=== PATIENT | female | born 1960 | race Caucasian/White ===

== ENCOUNTER 2016-08-04 18:00 | Emergency (ER) | payer MEDICARE, MEDICAID ==
--- NOTE | 2016-08-04 18:17 | ER Document Report ---
ED Medical Screen (RME) - General Stated Complaint: WEAKNESS Notes: 55 yo female with hx/o HTN, CHF, right nephrectomy, SC, stent 2013 brought to ED by EMS for generalized weakness and rectal bleeding today. dark red bleeding with BM x 1 today. feels dizzy. pressure on chest all day, center of chest feels heavy. + radiation into back. TRAVEL OUTSIDE OF THE [place] IN LAST 30 DAYS: No - Related Data Allergies/Adverse Reactions: Penicillins Allergy (Unknown, Verified 11/20/15 21:13) Past Medical History - Past Medical History Cardiac Medical History: Reports: Hx Congestive Heart Failure, Hx Coronary Artery Disease, Hx Hypertension Denies: Hx DVT Endocrine Medical History: Reports: Hx Diabetes Mellitus Type 1, Hx Diabetes Mellitus Type 2 Renal/ Medical History: Reports: Hx End Stage Renal Disease - stage 3 Malignancy Medical History: Reports: Hx Renal (Kidney) Cancer Psychiatric Medical History: Reports: Hx Depression Past Surgical History: Reports: Hx Cardiac Surgery - stents, Hx Cholecystectomy , Hx Coronary Stent - 2013, Hx Kidney (Renal Surgery) - right nephrectomy, Hx Orthopedic Surgery - Left great toe amputation - Immunizations Hx Diphtheria, Pertussis, Tetanus Vaccination: Yes Physical Exam - Vital signs Vitals: Temp Pulse Resp BP Pulse Ox 97.9 F 83 18 132/73 H 95 08/04/16 18:57 08/04/16 18:57 08/04/16 18:57 08/04/16 18:57 08/04/16 18:57 Course - Vital Signs Vital signs: Temp Pulse Resp BP Pulse Ox 97.9 F 83 18 132/73 H 95 08/04/16 18:57 08/04/16 18:57 08/04/16 18:57 08/04/16 18:57 08/04/16 18:57
[2016-08-04 20:19] LABS: APPEARANCE,URINE SLIGHTLY-CLOUDY; BILIRUBIN,URINE NEGATIVE (NEGATIVE); GLUCOSE, URINE 150 mg/dL (NEGATIVE); KETONES,URINE NEGATIVE (NEGATIVE); LEUKOCYTE ESTERASE,URINE NEGATIVE (NEGATIVE); NITRITE,URINE NEGATIVE (NEGATIVE); PROTEIN,URINE NEGATIVE (NEGATIVE); URINE SPECIFIC GRAVITY 1.014; UROBILINOGEN,URINE NEGATIVE mg/dL (<2.0)
[2016-08-04 20:22] LABS: ABSOLUTE BASOPHILS # (AUTO) 0.1 10^3/uL (0.0-0.2); ABSOLUTE EOSINOPHILS # (AUTO) 0.3 10^3/uL (0.0-0.6); ABSOLUTE LYMPHOCYTES (AUTO) 2.7 10^3/uL (0.5-4.7); ABSOLUTE MONOCYTES (AUTO) 0.5 10^3/uL (0.1-1.4); ABSOLUTE NEUT (AUTO) 8.2 10^3/uL (1.7-8.2); BASOPHILS % (AUTO) 0.6 % (0-2); EOSINOPHILS % (AUTO) 2.8 % (0-6); HEMATOCRIT 37.7 % (36.0-47.0); HGB HCT DIFFERENCE -1.7; LYMPHOCYTES % (AUTO) 22.7 % (13-45); MEAN CORPUSCULAR HEMOGLOBIN 26.4 pg (27.0-33.4); MEAN CORPUSCULAR HGB CONC 31.9 g/dL (32.0-36.0); MEAN CORPUSCULAR VOLUME 83 fl (80-97); MONOCYTES % (AUTO) 4.7 % (3-13); RED BLOOD COUNT 4.56 10^6/uL (3.72-5.28); RED CELL DISTRIBUTION WIDTH 14.7 % (11.5-14.0); SEGMENTED NEUTROPHILS % (AUTO) 69.2 % (42-78); WHITE BLOOD COUNT 11.8 10^3/uL (4.0-10.5)
[2016-08-04 20:37] LABS: ALANINE AMINOTRANSFERASE 27 U/L (9-52); ALBUMIN 3.7 g/dL (3.5-5.0); ALKALINE PHOSPHATASE 108 U/L (38-126); ANION GAP 14 (5-19); ASPARTATE AMINO TRANSFERASE 19 U/L (14-36); BILIRUBIN,TOTAL 0.4 mg/dL (0.2-1.3); BLOOD UREA NITROGEN 46 mg/dL (7-20); CALCIUM 8.8 mg/dL (8.4-10.2); CARBON DIOXIDE 25 mmol/L (22-30); CHLORIDE 98 mmol/L (98-107); CREATINE KINASE 82 U/L (30-135); CREATININE RESULT 2.01 mg/dL (0.52-1.25); GLUCOSE 331 mg/dL (75-110); LIPASE 264.1 U/L (23-300); POTASSIUM 4.8 mmol/L (3.6-5.0); SODIUM 136.7 mmol/L (137-145); TOTAL PROTEIN 7.7 g/dL (6.3-8.2)
[2016-08-04 20:50] LABS: TROPONIN I < 0.012 ng/mL
[2016-08-04 20:53] LABS: CREATINE KINASE MB 1.29 ng/mL (<4.55)
--- NOTE | 2016-08-04 21:44 | EKG REPORT ---
SEVERITY:- ABNORMAL ECG - SINUS RHYTHM LEFT VENTRICULAR HYPERTROPHY : Confirmed by: Randi Nagel MD 04-Aug-2016 21:44:03
[2016-08-04] MEDS ORDERED: NORMAL SALINE 1000 ML 1,000 ML IV ONE (23:58)
[2016-08-05] MEDS ORDERED: NORMAL SALINE 1000 ML 500 ML IV ONE (00:01)
[2016-08-05] MEDS ORDERED: MORPHINE SULFATE 10 MG/ML INJ IV ONE (00:24)
[2016-08-05 01:36] LABS: PROTHROMBIN TIME 13.3 SEC (11.4-15.4)
[2016-08-05 01:37] LABS: PARTIAL THROMBOPLASTIN TIME 23.4 SEC (23.5-35.8)
--- NOTE | 2016-08-05 03:31 | ER Document Report ---
ED GI Bleed / Rectal Pain - General Chief Complaint: Rectal Bleeding Stated Complaint: WEAKNESS Mode of Arrival: Ambulatory Information source: Patient Notes: Patient is a 55-year-old female who presents to the ER today for one episode of rectal bleeding today with a bowel movement. Patient states that she has a history of internal hemorrhoids and she was having a bowel movement today had some dark blood in the toilet afterwards. She does take iron, but states that the blood was not black, just dark in color. She denies blood clots. She admits to some left lower quadrant pain, but states that it has been going on for "a while." She denies constipation, diarrhea, nausea/vomiting, hx diverticulitis. She states her last colonoscopy was 1 year ago and normal with just some polyps removed. TRAVEL OUTSIDE OF THE [place] IN LAST 30 DAYS: No - Related Data Allergies/Adverse Reactions: Penicillins Allergy (Unknown, Verified 11/20/15 21:13) Past Medical History - General Information source: Patient - Social History Smoking Status: Former Smoker Chew tobacco use (# tins/day): No Frequency of alcohol use: None Drug Abuse: None Family History: Reviewed & Not Pertinent Patient has suicidal ideation: No Patient has homicidal ideation: No - Past Medical History Cardiac Medical History: Reports: Hx Congestive Heart Failure, Hx Coronary Artery Disease, Hx Hypertension Denies: Hx DVT Endocrine Medical History: Reports: Hx Diabetes Mellitus Type 1, Hx Diabetes Mellitus Type 2 Renal/ Medical History: Reports: Hx End Stage Renal Disease - stage 3. Denies : Hx Peritoneal Dialysis Malignancy Medical History: Reports: Hx Renal (Kidney) Cancer Psychiatric Medical History: Reports: Hx Depression Past Surgical History: Reports: Hx Cardiac Surgery - stents, Hx Cholecystectomy , Hx Coronary Stent - 2013, Hx Kidney (Renal Surgery) - right nephrectomy, Hx Orthopedic Surgery - Left great toe amputation - Immunizations Hx Diphtheria, Pertussis, Tetanus Vaccination: Yes Hx Pneumococcal Vaccination: 07/11/13 Review of Systems - Review of Systems Constitutional: No symptoms reported EENT: No symptoms reported Cardiovascular: No symptoms reported Respiratory: No symptoms reported Gastrointestinal: See HPI Genitourinary: No symptoms reported Female Genitourinary: No symptoms reported Musculoskeletal: No symptoms reported Skin: No symptoms reported Hematologic/Lymphatic: No symptoms reported Neurological/Psychological: No symptoms reported Physical Exam - Vital signs Vitals: Temp Pulse Resp BP Pulse Ox 97.9 F 83 18 132/73 H 95 08/04/16 18:57 08/04/16 18:57 08/04/16 18:57 08/04/16 18:57 08/04/16 18:57 - Notes Notes: PHYSICAL EXAMINATION: GENERAL: appears to be uncomfortable, but in no acute distress. HEAD: Atraumatic, normocephalic. EYES: Pupils equal round and reactive to light, extraocular movements intact, sclera anicteric, conjunctiva are normal. NECK: Normal range of motion, supple without lymphadenopathy LUNGS: CTAB and equal. No wheezes rales or rhonchi. HEART: Regular rate and rhythm without murmurs ABDOMEN: Soft, llq tenderness. No guarding, no rebound BACK: no vertebral tenderness, normal ROM GI/: no CVA tenderness rectal: internal hemorrhoids noted, no obvious blood, normal tone and tenderness EXTREMITIES: Normal range of motion, no pitting edema. No cyanosis. NEUROLOGICAL: Cranial nerves grossly intact. Normal sensory/motor exams. PSYCH: Normal mood, normal affect. SKIN: Warm, Dry, normal turgor, no rashes or lesions noted Course - Re-evaluation Re-evalutation: 08/05/16 03:36 Pt's hemoglobin is normal, her hemoccult is positive. She does take iron. There are internal hemorrhoids noted on her rectal exam. Pt's creatinine is slightly worse than in february, but she's been told she says that her kidney function is worsening by her senior assistant manager. CT abd with oral contrast negative for any acute pathology. Pt stable for discharge as she has had two bowel movements here without any blood in it after arriving. She states she wants to go home and follow up with her pcp. 08/05/16 03:38 - Vital Signs Vital signs: Temp Pulse Resp BP Pulse Ox 97.9 F 83 18 132/73 H 95 08/04/16 18:57 08/04/16 18:57 08/04/16 18:57 08/04/16 18:57 08/04/16 18:57 - Laboratory Result Diagrams: 08/04/16 19:45 08/04/16 19:45 Laboratory results interpreted by me: 08/04/16 08/04/16 08/04/16 19:45 19:45 19:50 WBC 11.8 H MCH 26.4 L MCHC 31.9 L RDW 14.7 H APTT Sodium 136.7 L BUN 46 H Creatinine 2.01 H Est GFR ( Amer) 31 L Est GFR (Non-Af Amer) 26 L Glucose 331 H Urine Glucose (UA) 150 H 08/05/16 01:17 WBC MCH MCHC RDW APTT 23.4 L Sodium BUN Creatinine Est GFR ( Amer) Est GFR (Non-Af Amer) Glucose Urine Glucose (UA) Discharge - Discharge Clinical Impression: Rectal bleeding Condition: Stable Disposition: HOME, SELF-CARE Additional Instructions: Return immediately for any new or worsening symptoms. Follow up with GI/ primary care provider, call tomorrow to make followup appointment. Referrals: JERRI MORALES MD [ACTIVE STAFF] - Follow up as needed
[2016-08-05] MEDS ORDERED: OXYCODONE-ACETAMINOPHEN 5-325 MG TABLET PO ONE (04:04)
[2016-08-05 04:49] VITALS: BP 133/78
== END 2016-08-05 04:50 | disposition home or self-care (01) ==
LOC: ER 18:00
DX: K62.5 Hemorrhage of anus and rectum (principal); R19.5 Other fecal abnormalities; R10.32 Left lower quadrant pain; K64.8 Other hemorrhoids; I25.10 Atherosclerotic heart disease of native coronary artery without angina pectoris; I10 Essential (primary) hypertension; E11.9 Type 2 diabetes mellitus without complications; Z85.528 Personal history of other malignant neoplasm of kidney; Z90.5 Acquired absence of kidney; Z90.49 Acquired absence of other specified parts of digestive tract; Z98.61 Coronary angioplasty status; Z87.891 Personal history of nicotine dependence; Z88.0 Allergy status to penicillin; Z86.010 Personal history of colon polyps; Z79.899 Other long term (current) drug therapy
CPT/HCPCS: 93005; 99284; 96361; 96374; 86900; 86901; 36415; 82553; 86850; 82550; 83690; 85025; 85610; 85730; 82272; 80053; 81001; 84484; 71020; 74176; 93010; J2270; A9270; J7030

== ENCOUNTER → 2016-10-04 | Outpatient (CLI) | payer MEDICARE, MEDICAID | LOC: WI 13:36 | PROVIDERS: ATTEND Internal Medicine Geriatric Medicine | DX: Z12.31 Encounter for screening mammogram for malignant neoplasm of breast (principal) | CPT/HCPCS: 77067; G0202 ==

== ENCOUNTER → 2016-10-18 | Outpatient (CLI) | payer MEDICARE, MEDICAID | LOC: RAD 12:20 | PROVIDERS: ATTEND Internal Medicine Cardiovascular Disease | DX: R55 Syncope and collapse (principal) | CPT/HCPCS: 70450 ==

== ENCOUNTER → 2017-01-20 | Outpatient (CLI) | payer MEDICARE, MEDICAID ==
--- NOTE | 2017-01-20 12:23 | RADIOLOGY REPORT (SQ) ---
EXAM DESCRIPTION: MRI HEAD WITHOUT COMPLETED DATE/TIME: 01/20/2017 12:06 pm REASON FOR STUDY: SYNCOPE AND COLLAPSE R55 SYNCOPE AND COLLAPSE G45.9 TRANSIENT CEREBRAL ISCHEMIC ATTACK, UNSPECIFIED COMPARISON: CT brain 10/18/2016 MRI brain 09/09/2008 TECHNIQUE: Multiplanar imaging includes non-contrasted T1, T2, FLAIR, and diffusion with ADC map seq uences. Images stored on PACS. LIMITATIONS: None. FINDINGS: ANATOMY: No anomalies. Normal vascular flow voids. Pituitary fossa normal. CSF SPACES: Normal in size and contour. No hemorrhage. CEREBRUM: Sulci and gyri normal in size and contour. Normal white matter signal on FLAIR imaging. No evidence of hemorrhage, mass, or extraaxial fluid collection. POSTERIOR FOSSA: No signal alteration. No hemorrhage. No edema, masses or mass effect. Internal carol tory canals, cerebello-pontine angles, mastoids normal. DIFFUSION IMAGING: Negative for acute or sub-acute infarction. ORBITS: No masses. Globes normal. PARANASAL SINUSES: No fluid levels. Mucosa normal. OTHER: No other significant finding. IMPRESSION: NORMAL MRI OF THE BRAIN WITHOUT INTRAVENOUS GADOLINIUM CONTRAST. TECHNICAL DOCUMENTATION: JOB ID: [id number]- All Rights Reserved
== END ==
LOC: RAD 10:48
PROVIDERS: ATTEND Physician Assistant Medical
DX: G45.9 Transient cerebral ischemic attack, unspecified (principal); R55 Syncope and collapse; R42 Dizziness and giddiness
CPT/HCPCS: 70551

== ENCOUNTER 2017-01-27 16:37 | Inpatient (IN) | payer MEDICARE, MEDICAID ==
[2017-01-27 17:39] LABS: APPEARANCE,URINE CLEAR; BILIRUBIN,URINE NEGATIVE (NEGATIVE); GLUCOSE, URINE 50 mg/dL (NEGATIVE); KETONES,URINE NEGATIVE (NEGATIVE); LEUKOCYTE ESTERASE,URINE NEGATIVE (NEGATIVE); NITRITE,URINE NEGATIVE (NEGATIVE); PROTEIN,URINE NEGATIVE (NEGATIVE); URINE SPECIFIC GRAVITY 1.008; UROBILINOGEN,URINE NEGATIVE mg/dL (<2.0)
[2017-01-27] MEDS ORDERED: GLUCAGON,HUMAN RECOMB 1 MG INJ IM PRN (17:44)
[2017-01-27] MEDS ORDERED: DEXTROSE 40% GEL 15 GM TUBE X 2 PO PRN (17:44)
[2017-01-27] MEDS ORDERED: DEXTROSE 40% GEL 15 GM TUBE PO PRN (17:44)
[2017-01-27] MEDS ORDERED: DEXTROSE 50%-WATER SYRINGE 25 GM/50 ML DOSE IV PRN (17:44)
[2017-01-27] MEDS ORDERED: DEXTROSE 50%-WATER SYRINGE 12.5 GM/25 ML DOSE IV PRN (17:44)
[2017-01-27 17:49] LABS: ABSOLUTE BASOPHILS # (AUTO) 0.1 10^3/uL (0.0-0.2); ABSOLUTE EOSINOPHILS # (AUTO) 0.5 10^3/uL (0.0-0.6); ABSOLUTE LYMPHOCYTES (AUTO) 3.1 10^3/uL (0.5-4.7); ABSOLUTE MONOCYTES (AUTO) 0.5 10^3/uL (0.1-1.4); ABSOLUTE NEUT (AUTO) 5.2 10^3/uL (1.7-8.2); BASOPHILS % (AUTO) 0.8 % (0-2); HEMATOCRIT 33.4 % (36.0-47.0); HEMOGLOBIN 11.1 g/dL (12.0-15.5); HGB HCT DIFFERENCE -0.1; LYMPHOCYTES % (AUTO) 33.3 % (13-45); MEAN CORPUSCULAR HEMOGLOBIN 27.3 pg (27.0-33.4); MEAN CORPUSCULAR HGB CONC 33.2 g/dL (32.0-36.0); MEAN CORPUSCULAR VOLUME 82 fl (80-97); MONOCYTES % (AUTO) 4.9 % (3-13); RED BLOOD COUNT 4.06 10^6/uL (3.72-5.28); RED CELL DISTRIBUTION WIDTH 14.9 % (11.5-14.0); WHITE BLOOD COUNT 9.4 10^3/uL (4.0-10.5)
[2017-01-27] MEDS ORDERED: NORMAL SALINE 1000 ML 1,000 ML IV PRN (18:00)
[2017-01-27 18:09] LABS: ALANINE AMINOTRANSFERASE 32 U/L (9-52); ALBUMIN 3.9 g/dL (3.5-5.0); ALKALINE PHOSPHATASE 104 U/L (38-126); ANION GAP 13 (5-19); ASPARTATE AMINO TRANSFERASE 30 U/L (14-36); BILIRUBIN,DIRECT 0.3 mg/dL (0.0-0.4); BILIRUBIN,TOTAL 0.4 mg/dL (0.2-1.3); BLOOD UREA NITROGEN 37 mg/dL (7-20); CALCIUM 8.8 mg/dL (8.4-10.2); CARBON DIOXIDE 25 mmol/L (22-30); CHLORIDE 101 mmol/L (98-107); CREATININE RESULT 2.01 mg/dL (0.52-1.25); GLUCOSE 138 mg/dL (75-110); POTASSIUM 4.5 mmol/L (3.6-5.0); SODIUM 139.2 mmol/L (137-145); TOTAL PROTEIN 7.9 g/dL (6.3-8.2)
[2017-01-27] MEDS ORDERED: ALPRAZOLAM 0.5 MG TABLET PO PRN (20:13)
[2017-01-27] MEDS ORDERED: (PENDING PHARMACY ID) (Nitroglycerin [Nitrostat] 0.3 MG) SL PRN (20:13)
[2017-01-27] MEDS ORDERED: ZALEPLON 5 MG PO PRN (20:13)
--- NOTE | 2017-01-27 21:08 | PDOC H&P ---
History of Present Illness Admission Date/PCP: 01/27/17 16:37 AMBAR LOPEZ MD Patient complains of: Elevated serum creatinine History of Present Illness: JESU ORR is a 56 year old female who presented to the office earlier today for follow up management of diabetes mellitus type 2, hypertension, obstructive sleep apnea and chronic pain syndrome related to degenerative dis disease but raised issue with need for referral to another community organizer due to worsening renal function as per result of her recent chemistry test completed on 01/19/2017 at outpatient lab under directive of Dr Suárez, dining service worker, that led to cancellation of her schedule cardiac catheterization. Patient has history of chronic kidney disease and was consulting with Dr Hebert, community organizer, but requested for a new community organizer due to financial limitation. Due to her other associated reported symptoms including dizziness, headache, increased thirst, shortness of breath, intermittent tachycardia, and slight disorientation she was advised hospitalization for further evaluation and management. Past Medical History Cardiac Medical History: Reports: Congestive Heart Failure, Coronary Artery Disease, Hypertension Denies: DVT Endocrine Medical History: Reports: Diabetes Mellitus Type 2 Renal/ Medical History: Reports: Chronic Kidney Disease Malignancy Medical History: Reports: Renal (Kidney) Cancer - s/p right nephrectomy September, Psychiatric Medical History: Reports: Depression Hematology: Reports: Anemia Past Surgical History Past Surgical History: Reports: Cholecystectomy, Coronary Stent - 2013, Orthopedic Surgery - Left great toe amputation Social History Smoking Status: Never Smoker Frequency of Alcohol Use: None Hx Recreational Drug Use: No Drugs: None Hx Prescription Drug Abuse: No Family History Family History: Reviewed & Not Pertinent Parental Family History Reviewed: Yes Children Family History Reviewed: Yes Sibling(s) Family History Reviewed.: Yes Medication/Allergy Home Medications: Alprazolam [Xanax 0.5 mg Tablet] 0.5 mg PO Q12HP PRN 01/27/17 Aspirin [Aspirin 325 mg Tablet] 325 mg PO DAILY 01/27/17 Atorvastatin Calcium [Lipitor 80 mg Tablet] 80 mg PO DAILY 01/27/17 Clopidogrel Bisulfate [Clopidogrel] 75 mg PO DAILY 01/27/17 Cyclobenzaprine HCl [Flexeril 10 mg Tablet] 10 mg PO HSP PRN 01/27/17 Fluoxetine HCl [Prozac 20 mg Capsule] 20 mg PO DAILY 01/27/17 Furosemide [Lasix] 40 mg PO BID 01/27/17 Gabapentin [Neurontin] 600 mg PO Q8 01/27/17 Hydralazine HCl [Apresoline 25 mg Tablet] 25 mg PO DAILY 01/27/17 Insulin Aspart [Novolog Flexpen] 10 units SQ MEALS 01/27/17 Insulin Degludec [Tresiba Flextouch U-100] 70 units SQ QHS 01/27/17 Isosorbide Mononitrate [Isosorbide Mononitrate ER] 30 mg PO DAILY 01/27/17 Linagliptin [Tradjenta] 5 mg PO DAILY 01/27/17 Lisinopril [Prinivil] 20 mg PO DAILY 01/27/17 Metoclopramide HCl [Reglan] 5 mg PO Q12 01/27/17 Metoprolol Succinate [Toprol XL 100 mg Tablet] 100 mg PO DAILY 01/27/17 Nitroglycerin [Nitro-Dur 5 mg (0.2 mg/Hr) Transdermal Patch] 1 patch TD DAILY 01/27/17 Nitroglycerin [Nitrostat] 0.3 mg SL Q15MP PRN MDD 3 TABS 01/27/17 Ranitidine HCl [Zantac 150 mg Tablet] 150 mg PO Q12 01/27/17 Ranolazine [Ranexa 500 mg Tab.sr] 500 mg PO Q12 01/27/17 Topiramate [Topamax] 50 mg PO DAILY 01/27/17 Topiramate [Topamax] 100 mg PO QHS 01/27/17 Zaleplon [Sonata] 5 mg PO HSP PRN 01/27/17 Allergies/Adverse Reactions: Penicillins Allergy (Unknown, Verified 11/20/15 21:13) Review of Systems Constitutional: PRESENT: fatigue, headache(s) Eyes: ABSENT: visual disturbances Ears: ABSENT: hearing changes Nose, Mouth, and Throat: PRESENT: headache(s), sore throat - with CPAP machine usage Cardiovascular: PRESENT: chest pain - intermittent, edema - improving, palpitations - intermittent Respiratory: PRESENT: dyspnea, other - wheezing Gastrointestinal: ABSENT: abdominal pain, constipation, diarrhea, hematemesis, hematochezia, nausea, vomiting Genitourinary: ABSENT: dysuria, hematuria Musculoskeletal: PRESENT: back pain, deformity Integumentary: PRESENT: diaphoresis - mostly at night time Neurological: PRESENT: dizziness, numbness - in feet related to her diabetes mellitus Psychiatric: PRESENT: other - snoring Endocrine: PRESENT: flushing Hematologic/Lymphatic: ABSENT: easy bleeding, easy bruising, lymphadenopathy Physical Exam Vital Signs: Temp Pulse Resp BP Pulse Ox 97.4 F 71 17 117/61 100 01/27/17 19:13 01/27/17 19:13 01/27/17 19:13 01/27/17 19:13 01/27/17 19:13 Intake & Output 01/26/17 01/27/17 01/28/17 06:59 06:59 06:59 Output Total 900 Balance -900 Weight 137.438 kg General appearance: PRESENT: no acute distress, morbidly obese Head exam: PRESENT: atraumatic, normocephalic Eye exam: PRESENT: conjunctiva pink, EOMI, PERRLA. ABSENT: scleral icterus Ear exam: PRESENT: normal external ear exam Mouth exam: PRESENT: moist, tongue midline Throat exam: ABSENT: post pharyngeal erythema, tonsillar erythema, tonsillar exudate, tonsillogmegaly, other Neck exam: ABSENT: carotid bruit, full ROM, JVD, lymphadenopathy, meningismus, tenderness, thyromegaly, tracheal deviation, tracheostomy, other Respiratory exam: PRESENT: clear to auscultation tarsha Cardiovascular exam: PRESENT: RRR. ABSENT: diastolic murmur, rubs, systolic murmur Pulses: PRESENT: normal dorsalis pedis pul, +2 pedal pulses bilateral Vascular exam: PRESENT: normal capillary refill GI/Abdominal exam: PRESENT: hernia - incisional hernia, right flank region, normal bowel sounds, soft. ABSENT: distended, guarding, mass, organolmegaly, rebound, tenderness Rectal exam: PRESENT: deferred Extremities exam: PRESENT: full ROM Musculoskeletal exam: PRESENT: ambulatory - with straight cane assistance, deformity - related to arthritis and left hallux amputation Neurological exam: PRESENT: alert, awake, oriented to person, oriented to place , oriented to time, oriented to situation, CN II-XII grossly intact. ABSENT: motor sensory deficit Psychiatric exam: PRESENT: appropriate affect, normal mood. ABSENT: homicidal ideation, suicidal ideation Skin exam: PRESENT: dry, intact, warm. ABSENT: cyanosis, rash Results Laboratory Results: 01/27/17 17:41 01/27/17 17:41 01/27/17 01/27/1717 17:25 17:41 17:41 WBC 9.4 RBC 4.06 Hgb 11.1 L Hct 33.4 L MCV 82 MCH 27.3 MCHC 33.2 RDW 14.9 H Plt Count 275 Seg Neutrophils % 56.0 Lymphocytes % 33.3 Monocytes % 4.9 Eosinophils % 5.0 Basophils % 0.8 Absolute Neutrophils 5.2 Absolute Lymphocytes 3.1 Absolute Monocytes 0.5 Absolute Eosinophils 0.5 Absolute Basophils 0.1 Sodium 139.2 Potassium 4.5 Chloride 101 Carbon Dioxide 25 Anion Gap 13 BUN 37 H Creatinine 2.01 H Est GFR ( Amer) 31 L Est GFR (Non-Af Amer) 26 L Glucose 138 H Calcium 8.8 Total Bilirubin 0.4 AST 30 ALT 32 Alkaline Phosphatase 104 Total Protein 7.9 Albumin 3.9 Urine Color YELLOW Urine Appearance CLEAR Urine pH 7.0 Ur Specific [place] 1.008 Urine Protein NEGATIVE Urine Glucose (UA) 50 H Urine Ketones NEGATIVE Urine Blood NEGATIVE Urine Nitrite NEGATIVE Ur Leukocyte Esterase NEGATIVE Urine WBC (Auto) 1 Urine RBC (Auto) 0 Assessment & Plan - Diagnosis (1) Acute kidney injury Is this a current diagnosis for this admission?: YesPlan: See admitting physician orders (2) Chronic kidney disease (CKD) stage G4/A1, severely decreased glomerular filtration rate (GFR) between 15-29 mL/min/1.73 square meter and albuminuria creatinine ratio less than 30 mg/g Is this a current diagnosis for this admission?: YesPlan: See admitting physician orders (3) Diabetes mellitus type 2 in obese Is this a current diagnosis for this admission?: YesPlan: See admitting physician orders (4) Obstructive sleep apnea of adult Is this a current diagnosis for this admission?: YesPlan: See admitting physician orders (5) Chronic CHF (congestive heart failure) Qualifiers: Congestive heart failure type: unspecified congestive heart failure type Qualified Code(s): I50.9 - Heart failure, unspecified Is this a current diagnosis for this admission?: YesPlan: See admitting physician orders (6) Lumbar degenerative disc disease Is this a current diagnosis for this admission?: YesPlan: See admitting physician orders (7) Migraine variant with headache Is this a current diagnosis for this admission?: YesPlan: See admitting physician orders (8) Mixed anxiety and depressive disorder Is this a current diagnosis for this admission?: YesPlan: See admitting physician orders (9) Anemia in chronic kidney disease (CKD) Qualifiers: Chronic kidney disease stage: stage 4 (severe) Qualified Code(s): N18.4 - Chronic kidney disease, stage 4 (severe); D63.1 - Anemia in chronic kidney disease Is this a current diagnosis for this admission?: YesPlan: See admitting physician orders (10) Hyperlipidemia Qualifiers: Hyperlipidemia type: pure hypercholesterolemia Qualified Code(s): E78.00 - Pure hypercholesterolemia, unspecified; E78.0 - Pure hypercholesterolemia Is this a current diagnosis for this admission?: YesPlan: See admitting physician orders (11) Hypertension Qualifiers: Hypertension type: essential hypertension Qualified Code(s): I10 - Essential (primary) hypertension Is this a current diagnosis for this admission?: YesPlan: See admitting physician orders (12) CAD (coronary artery disease) Qualifiers: Coronary Disease-Associated Artery/Lesion type: unspecified vessel or lesion type [place] vs. transplanted heart: [place] heart Associated angina: with unspecified angina Qualified Code(s): I25.119 - Atherosclerotic heart disease of [place] coronary artery with unspecified angina pectoris Is this a current diagnosis for this admission?: YesPlan: See admitting physician orders (13) Morbid obesity with BMI of 45.0-49.9, adult Is this a current diagnosis for this admission?: YesPlan: See admitting physician orders - Time Time Spent: Greater than 70 Minutes Medications reviewed and adjusted accordingly: Yes Anticipated discharge: Home - Plan Summary Plan Summary: See admitting physician orders
[2017-01-27] MEDS ORDERED: (PENDING PHARMACY ID) (Topiramate [Topamax] 100 MG) PO SCH (22:00)
[2017-01-27] MEDS ORDERED: (PENDING PHARMACY ID) (Ranitidine Hcl [Zantac 150 Mg Tablet] 150 MG) PO SCH (22:00)
[2017-01-27] MEDS ORDERED: INSULIN DEGLUDEC 70 UNIT SQ SCH (22:00)
[2017-01-27] MEDS: FAMOTIDINE 20 MG TABLET PO SCH (23:00)
[2017-01-27] MEDS: GABAPENTIN 300 MG CAPSULE PO SCH (23:01)
[2017-01-27] MEDS: RANOLAZINE 500 MG TAB.SR.12H PO SCH (23:02)
[2017-01-27] MEDS: TOPIRAMATE 100 MG TABLET PO SCH (23:02)
[2017-01-27] MEDS: HEPARIN SOD (PORCINE) 5,000 UNIT/ML 1 ML SYRINGE SUBCUT SCH (23:03)
[2017-01-27] MEDS: METOCLOPRAMIDE HCL 10 MG TABLET PO SCH (23:03)
[2017-01-27] MEDS: INSULIN LISPRO 100 UNIT/ML 3 ML VIAL SUBCUT PRN (23:24)
[2017-01-28] MEDS: CYCLOBENZAPRINE HCL 10 MG TABLET PO PRN (02:53)
[2017-01-28 05:20] LABS: ABSOLUTE BASOPHILS # (AUTO) 0.1 10^3/uL (0.0-0.2); ABSOLUTE EOSINOPHILS # (AUTO) 0.4 10^3/uL (0.0-0.6); ABSOLUTE LYMPHOCYTES (AUTO) 2.9 10^3/uL (0.5-4.7); ABSOLUTE MONOCYTES (AUTO) 0.6 10^3/uL (0.1-1.4); BASOPHILS % (AUTO) 0.9 % (0-2); EOSINOPHILS % (AUTO) 4.9 % (0-6); HEMATOCRIT 32.8 % (36.0-47.0); HEMOGLOBIN 10.5 g/dL (12.0-15.5); HGB HCT DIFFERENCE -1.3; MEAN CORPUSCULAR HEMOGLOBIN 26.1 pg (27.0-33.4); MEAN CORPUSCULAR HGB CONC 32.1 g/dL (32.0-36.0); MEAN CORPUSCULAR VOLUME 81 fl (80-97); MONOCYTES % (AUTO) 6.7 % (3-13); RED BLOOD COUNT 4.03 10^6/uL (3.72-5.28); RED CELL DISTRIBUTION WIDTH 14.8 % (11.5-14.0); SEGMENTED NEUTROPHILS % (AUTO) 55.5 % (42-78)
[2017-01-28 05:42] LABS: ALANINE AMINOTRANSFERASE 35 U/L (9-52); ALBUMIN 3.4 g/dL (3.5-5.0); ALKALINE PHOSPHATASE 96 U/L (38-126); ANION GAP 11 (5-19); ASPARTATE AMINO TRANSFERASE 31 U/L (14-36); BILIRUBIN,DIRECT 0.3 mg/dL (0.0-0.4); BILIRUBIN,TOTAL 0.4 mg/dL (0.2-1.3); BLOOD UREA NITROGEN 34 mg/dL (7-20); CALCIUM 8.7 mg/dL (8.4-10.2); CARBON DIOXIDE 21 mmol/L (22-30); CHLORIDE 105 mmol/L (98-107); GLUCOSE 220 mg/dL (75-110); MAGNESIUM 1.9 mg/dL (1.6-2.3); PHOSPHORUS 4.4 mg/dL (2.5-4.5); POTASSIUM 4.6 mmol/L (3.6-5.0); TOTAL PROTEIN 6.9 g/dL (6.3-8.2)
[2017-01-28] MEDS: GABAPENTIN 300 MG CAPSULE PO SCH ×3 (05:43→22:32)
[2017-01-28] MEDS: HEPARIN SOD (PORCINE) 5,000 UNIT/ML 1 ML SYRINGE SUBCUT SCH ×3 (05:44→22:32)
[2017-01-28] MEDS: NORMAL SALINE 1000 ML 1,000 ML IV PRN (05:48)
--- NOTE | 2017-01-28 06:33 | RADIOLOGY REPORT (SQ) ---
EXAM DESCRIPTION: U/S [employer] L[employer] COMPLETED DATE/TIME: 01/28/2017 6:20 am REASON FOR STUDY: Acute Renal Injury on CKD I10 ESSENTIAL (PRIMARY) HYPERTENSION N17.9 ACUTE KIDNE Y FAILURE, UNSPECIFIED COMPARISON: 09/03/2015. TECHNIQUE: Dynamic and static grayscale images acquired of the kidneys and bladder and recorded on P ACS. Additional selected color Doppler and spectral images recorded. LIMITATIONS: Limited due to the patient's body habitus. FINDINGS: RIGHT KIDNEY: Surgically absent. LEFT KIDNEY: Normal size. Normal echogenicity. No solid or suspicious masses. No hydronephrosis. No calcifications. BLADDER: No masses. OTHER FINDINGS: No other significant finding. IMPRESSION: RIGHT NEPHRECTOMY. OTHERWISE UNREMARKABLE RENAL AND BLADDER ULTRASOUND. TECHNICAL DOCUMENTATION: JOB ID: [id number] All Rights Reserved
[2017-01-28] MEDS ORDERED: (PENDING PHARMACY ID) (Insulin Aspart [Novolog Flexpen] 10 UNITS) SQ SCH (08:00)
[2017-01-28] MEDS: INSULIN LISPRO 100 UNIT/ML 3 ML VIAL SUBCUT PRN ×4 (08:02→22:32)
[2017-01-28] MEDS: INSULIN LISPRO 100 UNIT/ML 3 ML VIAL SUBCUT SCH ×3 (08:02→17:32)
[2017-01-28] MEDS ORDERED: (PENDING PHARMACY ID) (Linagliptin [Tradjenta] 5 MG) PO SCH (10:00)
[2017-01-28] MEDS: METOPROLOL SUCCINATE 50 MG TAB.SR.24H PO SCH (10:04)
[2017-01-28] MEDS: ASPIRIN 325 MG TABLET PO SCH (10:04)
[2017-01-28] MEDS: SITAGLIPTIN PHOSPHATE 50 MG TABLET PO SCH (10:04)
[2017-01-28] MEDS: FAMOTIDINE 20 MG TABLET PO SCH ×2 (10:04→22:32)
[2017-01-28] MEDS: HYDRALAZINE HCL 25 MG TABLET PO SCH (10:05)
[2017-01-28] MEDS: METOCLOPRAMIDE HCL 10 MG TABLET PO SCH ×2 (10:06→22:32)
[2017-01-28] MEDS: ISOSORBIDE MONONITRATE 30 MG TAB.ER.24H PO SCH (10:06)
[2017-01-28] MEDS: LANSOPRAZOLE 30 MG TAB.RAP.DR PO SCH (10:07)
[2017-01-28] MEDS: FLUOXETINE HCL 20 MG CAPSULE PO SCH (10:07)
[2017-01-28] MEDS: CLOPIDOGREL BISULFATE 75 MG TABLET PO SCH (10:07)
[2017-01-28] MEDS: ATORVASTATIN CALCIUM 80 MG TABLET PO SCH (10:08)
[2017-01-28] MEDS: RANOLAZINE 500 MG TAB.SR.12H PO SCH ×2 (10:08→22:32)
[2017-01-28] MEDS: TOPIRAMATE 25 MG TABLET PO SCH (10:09)
[2017-01-28] MEDS: NITROGLYCERIN 5 MG (0.2 MG/HR) PATCH.TD24 TD SCH (10:09)
--- NOTE | 2017-01-28 16:30 | PDOC PROGRESS REPORT ---
Subjective Progress Note for:: 01/28/17 Subjective:: Patient denied any chest pain or difficulty with breathing. Remain on IV fluid support with Normal Saline infusion. No fever or chills. Her accuchek is elevated without Tresiba administration since admission. No nausea, vomiting or abdominal pain. 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 Physical Exam Vital Signs: Temp Pulse Resp BP Pulse Ox 98.3 F 73 24 H 103/57 L 98 01/28/17 15:15 01/28/17 15:15 01/28/17 15:15 01/28/17 15:15 01/28/17 15:15 Intake & Output 01/27/17 01/28/17 01/29/17 06:59 06:59 06:59 Intake Total 510 Output Total 2400 1700 Balance -2400 -1190 Weight 137.4 kg General appearance: PRESENT: no acute distress, morbidly obese Head exam: PRESENT: atraumatic, normocephalic Eye exam: PRESENT: conjunctiva pink, EOMI, PERRLA. ABSENT: scleral icterus Mouth exam: PRESENT: moist, tongue midline Respiratory exam: PRESENT: clear to auscultation tarsha Cardiovascular exam: PRESENT: RRR. ABSENT: diastolic murmur, rubs, systolic murmur GI/Abdominal exam: PRESENT: normal bowel sounds, soft. ABSENT: distended, guarding, mass, organolmegaly, rebound, tenderness Extremities exam: ABSENT: pedal edema Musculoskeletal exam: PRESENT: normal inspection Neurological exam: PRESENT: alert, awake, oriented to person, oriented to place , oriented to time, oriented to situation, CN II-XII grossly intact. ABSENT: motor sensory deficit Psychiatric exam: PRESENT: appropriate affect, normal mood. ABSENT: homicidal ideation, suicidal ideation Skin exam: PRESENT: dry, intact, warm. ABSENT: cyanosis, rash Results Laboratory Results: 01/28/17 04:20 01/28/17 04:20 01/27/17 01/27/17 01/27/17 17:25 17:41 17:41 WBC 9.4 RBC 4.06 Hgb 11.1 L Hct 33.4 L MCV 82 MCH 27.3 MCHC 33.2 RDW 14.9 H Plt Count 275 Seg Neutrophils % 56.0 Lymphocytes % 33.3 Monocytes % 4.9 Eosinophils % 5.0 Basophils % 0.8 Absolute Neutrophils 5.2 Absolute Lymphocytes 3.1 Absolute Monocytes 0.5 Absolute Eosinophils 0.5 Absolute Basophils 0.1 Sodium 139.2 Potassium 4.5 Chloride 101 Carbon Dioxide 25 Anion Gap 13 BUN 37 H Creatinine 2.01 H Est GFR ( Amer) 31 L Est GFR (Non-Af Amer) 26 L Glucose 138 H Calcium 8.8 Phosphorus Magnesium Total Bilirubin 0.4 AST 30 ALT 32 Alkaline Phosphatase 104 Total Protein 7.9 Albumin 3.9 Urine Color YELLOW Urine Appearance CLEAR Urine pH 7.0 Ur Specific [place] 1.008 Urine Protein NEGATIVE Urine Glucose (UA) 50 H Urine Ketones NEGATIVE Urine Blood NEGATIVE Urine Nitrite NEGATIVE Ur Leukocyte Esterase NEGATIVE Urine WBC (Auto) 1 Urine RBC (Auto) 0 01/28/17 01/28/17 04:20 04:20 WBC 9.0 RBC 4.03 Hgb 10.5 L Hct 32.8 L MCV 81 MCH 26.1 L MCHC 32.1 RDW 14.8 H Plt Count 255 Seg Neutrophils % 55.5 Lymphocytes % 32.0 Monocytes % 6.7 Eosinophils % 4.9 Basophils % 0.9 Absolute Neutrophils 5.0 Absolute Lymphocytes 2.9 Absolute Monocytes 0.6 Absolute Eosinophils 0.4 Absolute Basophils 0.1 Sodium 137.0 Potassium 4.6 Chloride 105 Carbon Dioxide 21 L Anion Gap 11 BUN 34 H Creatinine 1.90 H Est GFR ( Amer) 33 L Est GFR (Non-Af Amer) 28 L Glucose 220 H Calcium 8.7 Phosphorus 4.4 Magnesium 1.9 Total Bilirubin 0.4 AST 31 ALT 35 Alkaline Phosphatase 96 Total Protein 6.9 Albumin 3.4 L Urine Color Urine Appearance Urine pH Ur Specific [place] Urine Protein Urine Glucose (UA) Urine Ketones Urine Blood Urine Nitrite Ur Leukocyte Esterase Urine WBC (Auto) Urine RBC (Auto) Impressions: Renal Ultrasound 01/28/17 00:00 IMPRESSION: RIGHT NEPHRECTOMY. OTHERWISE UNREMARKABLE RENAL AND BLADDER ULTRASOUND. Assessment & Plan - Diagnosis (1) Acute kidney injury Is this a current diagnosis for this admission?: Yes (2) Chronic kidney disease (CKD) stage G4/A1, severely decreased glomerular filtration rate (GFR) between 15-29 mL/min/1.73 square meter and albuminuria creatinine ratio less than 30 mg/g Is this a current diagnosis for this admission?: Yes (3) Diabetes mellitus type 2 in obese Is this a current diagnosis for this admission?: Yes (4) Obstructive sleep apnea of adult Is this a current diagnosis for this admission?: Yes (5) Chronic CHF (congestive heart failure) Qualifiers: Congestive heart failure type: unspecified congestive heart failure type Qualified Code(s): I50.9 - Heart failure, unspecified Is this a current diagnosis for this admission?: Yes (6) Lumbar degenerative disc disease Is this a current diagnosis for this admission?: Yes (7) Migraine variant with headache Is this a current diagnosis for this admission?: Yes (8) Mixed anxiety and depressive disorder Is this a current diagnosis for this admission?: Yes (9) Anemia in chronic kidney disease (CKD) Qualifiers: Chronic kidney disease stage: stage 4 (severe) Qualified Code(s): N18.4 - Chronic kidney disease, stage 4 (severe); D63.1 - Anemia in chronic kidney disease Is this a current diagnosis for this admission?: Yes (10) Hyperlipidemia Qualifiers: Hyperlipidemia type: pure hypercholesterolemia Qualified Code(s): E78.00 - Pure hypercholesterolemia, unspecified; E78.0 - Pure hypercholesterolemia Is this a current diagnosis for this admission?: Yes (11) Hypertension Qualifiers: Hypertension type: essential hypertension Qualified Code(s): I10 - Essential (primary) hypertension Is this a current diagnosis for this admission?: Yes (12) CAD (coronary artery disease) Qualifiers: Coronary Disease-Associated Artery/Lesion type: unspecified vessel or lesion type [place] vs. transplanted heart: elem heart Associated angina: with unspecified angina Qualified Code(s): I25.119 - Atherosclerotic heart disease of elem coronary artery with unspecified angina pectoris Is this a current diagnosis for this admission?: Yes (13) Morbid obesity with BMI of 45.0-49.9, adult Is this a current diagnosis for this admission?: Yes - Time Time Spent with patient: 25-34 minutes Medications reviewed and adjusted accordingly: Yes Anticipated discharge: Home Within: Other - Plan Summary Plan Summary: Continue IV fluid infusion. Monitor renal indices. Follow up on nephrology consult request. If she continue to show improvement in her renal indices we will consider discharge with outpatient nephrology service follow up in the next 24 hours.
[2017-01-28] MEDS ORDERED: NITROGLYCERIN 0.4 MG/TAB 25 TAB/BOTTLE SL PRN (16:33)
[2017-01-28] MEDS ORDERED: ZOLPIDEM TARTRATE 5 MG TABLET PO PRN (16:38)
--- NOTE | 2017-01-28 17:53 | PDOC CONSULTATION ---
Consultation Consult Date: 01/28/17 History of Present Illness Admission Date/PCP: 01/27/17 16:37 MELODY BEAVERS PA-C History of Present Illness: JESU ORR is a 56 year old female with history of CKD 3/4 with background of diabetes and hypertension with only a left kidney. Right one was removed due to renal cancer. Other history is CAD, obstructive sleep apnea, CHF , anemia and chronic pain syndrome. She was seen in her primary cares office and was directed to the ER for an elevated creatinine above base line. The elvated creatinine was noticed on a chemistry test completed on 01/19/2017 at outpatient lab under directive of Dr Suárez, senior managing director, that led to cancellation of her schedule cardiac catheterization. Previously seen by Dr Hebert, card decorator, but requested for a new card decorator due to financial limitation. She denies any kidney stones, any blood in her urine, any muscle aches, urinary retention, or any other ANA related symptoms. Past Medical History Cardiac Medical History: Reports: Coronary Artery Disease Denies: DVT Endocrine Medical History: Reports: Diabetes Mellitus Type 2 Renal/ Medical History: Reports: Chronic Kidney Disease Stage IV Malignancy Medical History: Reports: Renal (Kidney) Cancer - s/p right nephrectomy September, Psychiatric Medical History: Reports: Depression Hematology Medical History: Reports Anemia Past Surgical History Past Surgical History: Reports: Cholecystectomy, Coronary Stent - 2013, Orthopedic Surgery - Left great toe amputation Social History Smoking Status: Never Smoker Frequency of Alcohol Use: None Hx Recreational Drug Use: No Drugs: None Hx Prescription Drug Abuse: No Family History Parental Family History Reviewed: Yes Children Family History Reviewed: Yes Sibling(s) Family History Reviewed.: Yes Medication/Allergy Home Medications: Alprazolam [Xanax 0.5 mg Tablet] 0.5 mg PO Q12HP PRN 01/27/17 Aspirin [Aspirin 325 mg Tablet] 325 mg PO DAILY 01/27/17 Atorvastatin Calcium [Lipitor 80 mg Tablet] 80 mg PO DAILY 01/27/17 Clopidogrel Bisulfate [Clopidogrel] 75 mg PO DAILY 01/27/17 Cyclobenzaprine HCl [Flexeril 10 mg Tablet] 10 mg PO HSP PRN 01/27/17 Fluoxetine HCl [Prozac 20 mg Capsule] 20 mg PO DAILY 01/27/17 Furosemide [Lasix] 40 mg PO BID 01/27/17 Gabapentin [Neurontin] 600 mg PO Q8 01/27/17 Hydralazine HCl [Apresoline 25 mg Tablet] 25 mg PO DAILY 01/27/17 Insulin Aspart [Novolog Flexpen] 10 units SQ MEALS 01/27/17 Insulin Degludec [Tresiba Flextouch U-100] 70 units SQ QHS 01/27/17 Isosorbide Mononitrate [Isosorbide Mononitrate ER] 30 mg PO DAILY 01/27/17 Linagliptin [Tradjenta] 5 mg PO DAILY 01/27/17 Lisinopril [Prinivil] 20 mg PO DAILY 01/27/17 Metoclopramide HCl [Reglan] 5 mg PO Q12 01/27/17 Metoprolol Succinate [Toprol XL 100 mg Tablet] 100 mg PO DAILY 01/27/17 Nitroglycerin [Nitro-Dur 5 mg (0.2 mg/Hr) Transdermal Patch] 1 patch TD DAILY 01/27/17 Nitroglycerin [Nitrostat] 0.3 mg SL Q15MP PRN MDD 3 TABS 01/27/17 Ranitidine HCl [Zantac 150 mg Tablet] 150 mg PO Q12 01/27/17 Ranolazine [Ranexa 500 mg Tab.sr] 500 mg PO Q12 01/27/17 Topiramate [Topamax] 50 mg PO DAILY 01/27/17 Topiramate [Topamax] 100 mg PO QHS 01/27/17 Zaleplon [Sonata] 5 mg PO HSP PRN 01/27/17 Allergies/Adverse Reactions: Penicillins Allergy (Unknown, Verified 11/20/15 21:13) Review of Systems Constitutional: ABSENT: anorexia, chills, fatigue, fever(s), weakness Cardiovascular: PRESENT: chest pain, dyspnea on exertion. ABSENT: edema, palpitations Respiratory: PRESENT: cough, dyspnea. ABSENT: hemoptysis Gastrointestinal: ABSENT: abdominal pain, constipation, diarrhea, nausea, vomiting Genitourinary: ABSENT: difficulty urinating, dysuria, hematuria Musculoskeletal: ABSENT: joint swelling, muscle weakness Neurological: PRESENT: numbness. ABSENT: confusion Psychiatric: PRESENT: depression. ABSENT: anxiety Endocrine: PRESENT: polydipsia, polyuria Physical Exam Vital Signs: Temp Pulse Resp BP Pulse Ox 98.3 F 73 24 H 103/57 L 98 01/28/17 15:15 01/28/17 15:15 01/28/17 15:15 01/28/17 15:15 01/28/17 15:15 Intake & Output 01/27/17 01/28/17 01/29/17 06:59 06:59 06:59 Intake Total 510 Output Total 2400 1700 Balance -2400 -1190 Weight 137.4 kg General appearance: PRESENT: no acute distress, morbidly obese Eye exam: PRESENT: PERRLA. ABSENT: scleral icterus Mouth exam: PRESENT: moist, neck supple Neck exam: PRESENT: full ROM. ABSENT: carotid bruit, JVD, lymphadenopathy, thyromegaly Respiratory exam: PRESENT: clear to auscultation tarsha. ABSENT: accessory muscle use, crackles, rales, rhonchi, stridor, tachypnea, wheezes Cardiovascular exam: PRESENT: RRR, +S1, +S2. ABSENT: gallop, rubs, systolic murmur Vascular exam: PRESENT: normal capillary refill GI/Abdominal exam: PRESENT: soft. ABSENT: ascites, distended, guarding, hyperactive bowel sounds, hypoactive bowel sounds, mass, rebound, renal bruit, tenderness Extremities exam: ABSENT: joint swelling, pedal edema, tenderness Neurological exam: PRESENT: alert, oriented to person, oriented to place, oriented to time, oriented to situation Skin exam: PRESENT: dry, normal color, warm Results Laboratory Results: 01/28/17 04:20 01/28/17 04:20 01/27/17 01/27/17 01/27/17 17:25 17:41 17:41 WBC 9.4 RBC 4.06 Hgb 11.1 L Hct 33.4 L MCV 82 MCH 27.3 MCHC 33.2 RDW 14.9 H Plt Count 275 Seg Neutrophils % 56.0 Lymphocytes % 33.3 Monocytes % 4.9 Eosinophils % 5.0 Basophils % 0.8 Absolute Neutrophils 5.2 Absolute Lymphocytes 3.1 Absolute Monocytes 0.5 Absolute Eosinophils 0.5 Absolute Basophils 0.1 Sodium 139.2 Potassium 4.5 Chloride 101 Carbon Dioxide 25 Anion Gap 13 BUN 37 H Creatinine 2.01 H Est GFR ( Amer) 31 L Est GFR (Non-Af Amer) 26 L Glucose 138 H Calcium 8.8 Phosphorus Magnesium Total Bilirubin 0.4 AST 30 ALT 32 Alkaline Phosphatase 104 Total Protein 7.9 Albumin 3.9 Urine Color YELLOW Urine Appearance CLEAR Urine pH 7.0 Ur Specific [place] 1.008 Urine Protein NEGATIVE Urine Glucose (UA) 50 H Urine Ketones NEGATIVE Urine Blood NEGATIVE Urine Nitrite NEGATIVE Ur Leukocyte Esterase NEGATIVE Urine WBC (Auto) 1 Urine RBC (Auto) 0 01/28/17 01/28/17 04:20 04:20 WBC 9.0 RBC 4.03 Hgb 10.5 L Hct 32.8 L MCV 81 MCH 26.1 L MCHC 32.1 RDW 14.8 H Plt Count 255 Seg Neutrophils % 55.5 Lymphocytes % 32.0 Monocytes % 6.7 Eosinophils % 4.9 Basophils % 0.9 Absolute Neutrophils 5.0 Absolute Lymphocytes 2.9 Absolute Monocytes 0.6 Absolute Eosinophils 0.4 Absolute Basophils 0.1 Sodium 137.0 Potassium 4.6 Chloride 105 Carbon Dioxide 21 L Anion Gap 11 BUN 34 H Creatinine 1.90 H Est GFR ( Amer) 33 L Est GFR (Non-Af Amer) 28 L Glucose 220 H Calcium 8.7 Phosphorus 4.4 Magnesium 1.9 Total Bilirubin 0.4 AST 31 ALT 35 Alkaline Phosphatase 96 Total Protein 6.9 Albumin 3.4 L Urine Color Urine Appearance Urine pH Ur Specific [place] Urine Protein Urine Glucose (UA) Urine Ketones Urine Blood Urine Nitrite Ur Leukocyte Esterase Urine WBC (Auto) Urine RBC (Auto) Impressions: Renal Ultrasound 01/28/17 00:00 IMPRESSION: RIGHT NEPHRECTOMY. OTHERWISE UNREMARKABLE RENAL AND BLADDER ULTRASOUND. Assessment & Plan - Diagnosis (1) Anemia in chronic kidney disease (CKD) Qualifiers: Chronic kidney disease stage: stage 4 (severe) Qualified Code(s): N18.4 - Chronic kidney disease, stage 4 (severe); D63.1 - Anemia in chronic kidney disease Is this a current diagnosis for this admission?: YesPlan: Will check iron panel and serum protein electrophoresis. If normal will inform patient about procrit when hemoglobin drops below 10. (2) Chronic CHF (congestive heart failure) Qualifiers: Congestive heart failure type: unspecified congestive heart failure type Qualified Code(s): I50.9 - Heart failure, unspecified Is this a current diagnosis for this admission?: YesPlan: stable (3) Chronic kidney disease (CKD) stage G4/A1, severely decreased glomerular filtration rate (GFR) between 15-29 mL/min/1.73 square meter and albuminuria creatinine ratio less than 30 mg/g Is this a current diagnosis for this admission?: YesPlan: slight increase in creatinine. No current indications for SALES REPRESENTATIVE CONSULTANT. Informed patient to keep a tight control of DM, HTN, not use NSAIDs and have adequate fluid intake. (4) Diabetes mellitus type 2 in obese Is this a current diagnosis for this admission?: YesPlan: informed her of the need to keep blood glucose well controlled by diet and medication. Informed her that if she doesn't that kidney function will keep decreasing. (5) Hypertension Qualifiers: Hypertension type: essential hypertension Qualified Code(s): I10 - Essential (primary) hypertension Is this a current diagnosis for this admission?: YesPlan: Advised her of a low sodium diet. Currently looks to be controlled with occasional bps in the 140s. (6) Morbid obesity with BMI of 45.0-49.9, adult Is this a current diagnosis for this admission?: Yes
[2017-01-28] MEDS ORDERED: INSULIN GLARGINE,HUM.REC.ANLOG 300 UNIT/3 ML INSULN.PEN SUBCUT SCH (22:00)
[2017-01-28] MEDS: TOPIRAMATE 100 MG TABLET PO SCH (22:32)
[2017-01-29] MEDS: CYCLOBENZAPRINE HCL 10 MG TABLET PO PRN ×2 (02:28→23:16)
[2017-01-29] MEDS: NORMAL SALINE 1000 ML 1,000 ML IV PRN ×2 (05:35→16:40)
[2017-01-29] MEDS: HEPARIN SOD (PORCINE) 5,000 UNIT/ML 1 ML SYRINGE SUBCUT SCH ×3 (05:35→21:06)
[2017-01-29] MEDS: GABAPENTIN 300 MG CAPSULE PO SCH ×3 (05:35→21:10)
[2017-01-29] MEDS: INSULIN LISPRO 100 UNIT/ML 3 ML VIAL SUBCUT PRN ×4 (07:41→22:24)
[2017-01-29] MEDS: INSULIN LISPRO 100 UNIT/ML 3 ML VIAL SUBCUT SCH ×3 (07:41→16:39)
[2017-01-29 07:42] LABS: ANION GAP 13 (5-19); BLOOD UREA NITROGEN 26 mg/dL (7-20); CALCIUM 9.5 mg/dL (8.4-10.2); CARBON DIOXIDE 22 mmol/L (22-30); CHLORIDE 105 mmol/L (98-107); CREATININE RESULT 1.59 mg/dL (0.52-1.25); GLUCOSE 244 mg/dL (75-110); PHOSPHORUS 4.1 mg/dL (2.5-4.5); POTASSIUM 5.1 mmol/L (3.6-5.0); SODIUM 139.7 mmol/L (137-145)
[2017-01-29 08:49] LABS: FOLATE 8.01 ng/mL (>2.76)
[2017-01-29] MEDS: TOPIRAMATE 25 MG TABLET PO SCH (10:46)
[2017-01-29] MEDS: NITROGLYCERIN 5 MG (0.2 MG/HR) PATCH.TD24 TD SCH (10:47)
[2017-01-29] MEDS: ASPIRIN 325 MG TABLET PO SCH (10:47)
[2017-01-29] MEDS: RANOLAZINE 500 MG TAB.SR.12H PO SCH ×2 (10:47→21:12)
[2017-01-29] MEDS: METOCLOPRAMIDE HCL 10 MG TABLET PO SCH ×2 (10:48→21:11)
[2017-01-29] MEDS: LANSOPRAZOLE 30 MG TAB.RAP.DR PO SCH (10:48)
[2017-01-29] MEDS: HYDRALAZINE HCL 25 MG TABLET PO SCH (10:48)
[2017-01-29] MEDS: FAMOTIDINE 20 MG TABLET PO SCH ×2 (10:48→21:11)
[2017-01-29] MEDS: ISOSORBIDE MONONITRATE 30 MG TAB.ER.24H PO SCH (10:49)
[2017-01-29] MEDS: FLUOXETINE HCL 20 MG CAPSULE PO SCH (10:49)
[2017-01-29] MEDS: CLOPIDOGREL BISULFATE 75 MG TABLET PO SCH (10:49)
[2017-01-29] MEDS: SITAGLIPTIN PHOSPHATE 50 MG TABLET PO SCH (10:49)
[2017-01-29] MEDS: METOPROLOL SUCCINATE 50 MG TAB.SR.24H PO SCH (10:50)
[2017-01-29] MEDS: ATORVASTATIN CALCIUM 80 MG TABLET PO SCH (10:50)
--- NOTE | 2017-01-29 17:11 | PDOC PROGRESS REPORT ---
Subjective Progress Note for:: 01/29/17 Subjective:: Patient was admitted for the management of acute kidney injury, she has underlining chronic kidney disease stage IV, she is on IV fluid therapy to revise any prerenal component that could be contributing to the acute kidney injury. Physical Exam Vital Signs: Temp Pulse Resp BP Pulse Ox 97.2 F 71 20 136/67 H 93 01/29/17 15:16 01/29/17 15:16 01/29/17 15:16 01/29/17 15:16 01/29/17 15:16 Intake & Output 01/28/17 01/29/17 01/30/17 06:59 06:59 06:59 Intake Total 4387 Output Total 2400 3100 Balance -2400 1287 Weight 137.4 kg 137.7 kg 137.7 kg General appearance: PRESENT: no acute distress Eye exam: PRESENT: PERRLA Respiratory exam: PRESENT: clear to auscultation tarsha Cardiovascular exam: PRESENT: +S1, +S2 Neurological exam: PRESENT: alert Results Laboratory Results: 01/28/17 04:20 01/29/17 07:07 01/29/17 01/29/17 07:07 07:07 Retic Count (auto) 2.34 Absolute Retic 0.103 Sodium 139.7 Potassium 5.1 H Chloride 105 Carbon Dioxide 22 Anion Gap 13 BUN 26 H Creatinine 1.59 H Est GFR ( Amer) 41 L Est GFR (Non-Af Amer) 34 L Glucose 244 H Calcium 9.5 Phosphorus 4.1 Iron 67.6 TIBC 296 % Saturation 23 Ferritin 87.50 Vitamin B12 588.0 Folate 8.01 01/28/17 11:05 Nasophary (Mrs[facility] Only) MRSA Surveillance Culture - Final NO MRSA RECOVERED Impressions: Renal Ultrasound 01/28/17 00:00 IMPRESSION: RIGHT NEPHRECTOMY. OTHERWISE UNREMARKABLE RENAL AND BLADDER ULTRASOUND. Assessment & Plan - Diagnosis (1) Acute kidney injury Is this a current diagnosis for this admission?: Yes (2) Anemia in chronic kidney disease (CKD) Qualifiers: Chronic kidney disease stage: stage 4 (severe) Qualified Code(s): N18.4 - Chronic kidney disease, stage 4 (severe); D63.1 - Anemia in chronic kidney disease Is this a current diagnosis for this admission?: Yes (3) Chronic CHF (congestive heart failure) Qualifiers: Congestive heart failure type: unspecified congestive heart failure type Qualified Code(s): I50.9 - Heart failure, unspecified Is this a current diagnosis for this admission?: Yes (4) Chronic kidney disease (CKD) stage G4/A1, severely decreased glomerular filtration rate (GFR) between 15-29 mL/min/1.73 square meter and albuminuria creatinine ratio less than 30 mg/g Is this a current diagnosis for this admission?: Yes (5) Diabetes mellitus type 2 in obese Is this a current diagnosis for this admission?: Yes
[2017-01-29] MEDS: TOPIRAMATE 100 MG TABLET PO SCH (21:12)
[2017-01-30] MEDS: GABAPENTIN 300 MG CAPSULE PO SCH ×3 (05:09→21:46)
[2017-01-30] MEDS: HEPARIN SOD (PORCINE) 5,000 UNIT/ML 1 ML SYRINGE SUBCUT SCH ×3 (05:10→21:47)
[2017-01-30] MEDS: INSULIN LISPRO 100 UNIT/ML 3 ML VIAL SUBCUT SCH ×3 (08:21→17:09)
[2017-01-30] MEDS: INSULIN LISPRO 100 UNIT/ML 3 ML VIAL SUBCUT PRN ×4 (08:21→21:47)
[2017-01-30] MEDS: SITAGLIPTIN PHOSPHATE 50 MG TABLET PO SCH (09:35)
[2017-01-30] MEDS: METOCLOPRAMIDE HCL 10 MG TABLET PO SCH ×2 (09:35→21:46)
[2017-01-30] MEDS: TOPIRAMATE 25 MG TABLET PO SCH (09:35)
[2017-01-30] MEDS: RANOLAZINE 500 MG TAB.SR.12H PO SCH ×2 (09:35→21:47)
[2017-01-30] MEDS: ISOSORBIDE MONONITRATE 30 MG TAB.ER.24H PO SCH (09:35)
[2017-01-30] MEDS: ATORVASTATIN CALCIUM 80 MG TABLET PO SCH (09:35)
[2017-01-30] MEDS: CLOPIDOGREL BISULFATE 75 MG TABLET PO SCH (09:35)
[2017-01-30] MEDS: ASPIRIN 325 MG TABLET PO SCH (09:36)
[2017-01-30] MEDS: FAMOTIDINE 20 MG TABLET PO SCH ×2 (09:36→21:46)
[2017-01-30] MEDS: FLUOXETINE HCL 20 MG CAPSULE PO SCH (09:36)
[2017-01-30] MEDS: LANSOPRAZOLE 30 MG TAB.RAP.DR PO SCH (09:36)
[2017-01-30] MEDS: METOPROLOL SUCCINATE 50 MG TAB.SR.24H PO SCH (09:36)
[2017-01-30] MEDS: HYDRALAZINE HCL 25 MG TABLET PO SCH (09:36)
[2017-01-30] MEDS: NITROGLYCERIN 5 MG (0.2 MG/HR) PATCH.TD24 TD SCH (09:37)
[2017-01-30] MEDS: NORMAL SALINE 1000 ML 1,000 ML IV PRN (14:10)
--- NOTE | 2017-01-30 14:56 | PDOC PROGRESS REPORT ---
Subjective Progress Note for:: 01/30/17 Subjective:: Patient was admitted initially for observation and admission was transitioned to inpatient care she came in because of acute kidney injury with underlining chronic kidney disease, I did very moment there is no indication for renal replacement therapy she will continue present management Physical Exam Vital Signs: Temp Pulse Resp BP Pulse Ox 97.1 F 72 20 143/89 H 96 01/30/17 11:25 01/30/17 14:00 01/30/17 11:25 01/30/17 11:25 01/30/17 11:25 Intake & Output 01/29/17 01/30/17 01/31/17 06:59 06:59 06:59 Intake Total 4387 4310 570 Output Total 3100 1600 1600 Balance 1287 2710 -1030 Weight 137.7 kg 137.6 kg General appearance: PRESENT: no acute distress Eye exam: PRESENT: PERRLA Respiratory exam: PRESENT: clear to auscultation tarsha Cardiovascular exam: PRESENT: +S1, +S2 Results Laboratory Results: 01/28/17 04:20 01/29/17 07:07 01/28/17 11:05 Nasophary (Mrsa Only) MRSA Surveillance Culture - Final NO MRSA RECOVERED Impressions: Renal Ultrasound 01/28/17 00:00 IMPRESSION: RIGHT NEPHRECTOMY. OTHERWISE UNREMARKABLE RENAL AND BLADDER ULTRASOUND. Assessment & Plan - Diagnosis (1) Acute kidney injury Is this a current diagnosis for this admission?: Yes (2) Anemia in chronic kidney disease (CKD) Qualifiers: Chronic kidney disease stage: stage 4 (severe) Qualified Code(s): N18.4 - Chronic kidney disease, stage 4 (severe); D63.1 - Anemia in chronic kidney disease Is this a current diagnosis for this admission?: Yes (3) Chronic CHF (congestive heart failure) Qualifiers: Congestive heart failure type: unspecified congestive heart failure type Qualified Code(s): I50.9 - Heart failure, unspecified Is this a current diagnosis for this admission?: Yes (4) Chronic kidney disease (CKD) stage G4/A1, severely decreased glomerular filtration rate (GFR) between 15-29 mL/min/1.73 square meter and albuminuria creatinine ratio less than 30 mg/g Is this a current diagnosis for this admission?: Yes (5) Diabetes mellitus type 2 in obese Is this a current diagnosis for this admission?: Yes
[2017-01-30 15:46] LABS: ALANINE AMINOTRANSFERASE 32 U/L (9-52); ALBUMIN 3.5 g/dL (3.5-5.0); ALKALINE PHOSPHATASE 99 U/L (38-126); ANION GAP 11 (5-19); ASPARTATE AMINO TRANSFERASE 22 U/L (14-36); BILIRUBIN,DIRECT 0.3 mg/dL (0.0-0.4); BILIRUBIN,TOTAL 0.4 mg/dL (0.2-1.3); BLOOD UREA NITROGEN 22 mg/dL (7-20); CALCIUM 9.1 mg/dL (8.4-10.2); CARBON DIOXIDE 20 mmol/L (22-30); CHLORIDE 107 mmol/L (98-107); CREATININE RESULT 1.62 mg/dL (0.52-1.25); GLUCOSE 238 mg/dL (75-110); POTASSIUM 4.9 mmol/L (3.6-5.0); SODIUM 137.7 mmol/L (137-145); TOTAL PROTEIN 7.1 g/dL (6.3-8.2)
[2017-01-30] MEDS: CYCLOBENZAPRINE HCL 10 MG TABLET PO PRN ×2 (16:21→23:57)
[2017-01-30] MEDS: TOPIRAMATE 100 MG TABLET PO SCH (21:47)
[2017-01-30] MEDS ORDERED: CYCLOBENZAPRINE HCL 10 MG TABLET PO ONE (23:45)
[2017-01-31 05:25] LABS: ALANINE AMINOTRANSFERASE 31 U/L (9-52); ALKALINE PHOSPHATASE 112 U/L (38-126); ANION GAP 12 (5-19); ASPARTATE AMINO TRANSFERASE 43 U/L (14-36); BILIRUBIN,DIRECT 0.4 mg/dL (0.0-0.4); BILIRUBIN,TOTAL 0.5 mg/dL (0.2-1.3); BLOOD UREA NITROGEN 24 mg/dL (7-20); CALCIUM 9.4 mg/dL (8.4-10.2); CARBON DIOXIDE 21 mmol/L (22-30); CHLORIDE 106 mmol/L (98-107); CREATININE RESULT 1.62 mg/dL (0.52-1.25); GLUCOSE 261 mg/dL (75-110); POTASSIUM 4.7 mmol/L (3.6-5.0); SODIUM 138.6 mmol/L (137-145); TOTAL PROTEIN 8.3 g/dL (6.3-8.2)
[2017-01-31] MEDS: GABAPENTIN 300 MG CAPSULE PO SCH ×3 (05:30→21:10)
[2017-01-31] MEDS: HEPARIN SOD (PORCINE) 5,000 UNIT/ML 1 ML SYRINGE SUBCUT SCH ×3 (05:31→21:10)
[2017-01-31] MEDS: INSULIN LISPRO 100 UNIT/ML 3 ML VIAL SUBCUT PRN ×4 (08:41→21:09)
[2017-01-31] MEDS: INSULIN LISPRO 100 UNIT/ML 3 ML VIAL SUBCUT SCH ×3 (08:41→17:39)
[2017-01-31] MEDS: NITROGLYCERIN 5 MG (0.2 MG/HR) PATCH.TD24 TD SCH (09:51)
[2017-01-31] MEDS: ATORVASTATIN CALCIUM 80 MG TABLET PO SCH (09:51)
[2017-01-31] MEDS: FAMOTIDINE 20 MG TABLET PO SCH ×2 (09:51→21:10)
[2017-01-31] MEDS: RANOLAZINE 500 MG TAB.SR.12H PO SCH ×2 (09:51→21:09)
[2017-01-31] MEDS: ASPIRIN 325 MG TABLET PO SCH (09:51)
[2017-01-31] MEDS: FLUOXETINE HCL 20 MG CAPSULE PO SCH (09:51)
[2017-01-31] MEDS: SITAGLIPTIN PHOSPHATE 50 MG TABLET PO SCH (09:51)
[2017-01-31] MEDS: METOCLOPRAMIDE HCL 10 MG TABLET PO SCH ×2 (09:52→21:09)
[2017-01-31] MEDS: LANSOPRAZOLE 30 MG TAB.RAP.DR PO SCH (09:52)
[2017-01-31] MEDS: METOPROLOL SUCCINATE 50 MG TAB.SR.24H PO SCH (09:52)
[2017-01-31] MEDS: ISOSORBIDE MONONITRATE 30 MG TAB.ER.24H PO SCH (09:52)
[2017-01-31] MEDS: TOPIRAMATE 25 MG TABLET PO SCH (09:52)
[2017-01-31] MEDS: CLOPIDOGREL BISULFATE 75 MG TABLET PO SCH (09:52)
[2017-01-31] MEDS: HYDRALAZINE HCL 25 MG TABLET PO SCH (09:53)
[2017-01-31] MEDS: NORMAL SALINE 1000 ML 1,000 ML IV PRN ×2 (10:10→21:08)
--- NOTE | 2017-01-31 18:02 | PDOC PROGRESS REPORT ---
Subjective Progress Note for:: 01/31/17 Subjective:: Patient reported episodes of intermittent dizziness and vertigo. There is associated headache, no nausea or vomiting. She denied any chest pain or difficulty with breathing. No abdominal pain. She remain on IV fluid normal Saline infusion. No fever or chills. Physical Exam Vital Signs: Temp Pulse Resp BP Pulse Ox 97.3 F 85 18 125/87 H 95 01/31/17 15:04 01/31/17 15:04 01/31/17 15:04 01/31/17 15:04 01/31/17 15:04 Intake & Output 01/30/17 01/31/17 02/01/17 06:59 06:59 06:59 Intake Total 4310 4786 1407 Output Total 1600 3500 2600 Balance 2710 1286 -1193 Weight 137.6 kg Physical Exam: General appearance: PRESENT: no acute distress, morbidly obese Head exam: PRESENT: atraumatic, normocephalic Eye exam: PRESENT: conjunctiva pink, EOMI, PERRLA. ABSENT: scleral icterus Mouth exam: PRESENT: moist, tongue midline Respiratory exam: PRESENT: clear to auscultation tarsha Cardiovascular exam: PRESENT: RRR. ABSENT: diastolic murmur, rubs, systolic murmur GI/Abdominal exam: PRESENT: normal bowel sounds, soft. ABSENT: distended, guarding, mass, organomegaly, rebound, tenderness Extremities exam: ABSENT: pedal edema Musculoskeletal exam: PRESENT: normal inspection Neurological exam: PRESENT: alert, awake, oriented to person, oriented to place , oriented to time, oriented to situation, CN II-XII grossly intact. ABSENT: motor sensory deficit Psychiatric exam: PRESENT: appropriate affect, normal mood. ABSENT: homicidal ideation, suicidal ideation Skin exam: PRESENT: dry, intact, warm. ABSENT: cyanosis, rash Results Laboratory Results: 01/28/17 04:20 01/31/17 04:36 01/31/17 04:36 Sodium 138.6 Potassium 4.7 Chloride 106 Carbon Dioxide 21 L Anion Gap 12 BUN 24 H Creatinine 1.62 H Est GFR ( Amer) 40 L Est GFR (Non-Af Amer) 33 L Glucose 261 H Calcium 9.4 Total Bilirubin 0.5 AST 43 H ALT 31 Alkaline Phosphatase 112 Total Protein 8.3 H Albumin 4.0 Impressions: Renal Ultrasound 01/28/17 00:00 IMPRESSION: RIGHT NEPHRECTOMY. OTHERWISE UNREMARKABLE RENAL AND BLADDER ULTRASOUND. Assessment & Plan - Diagnosis (1) Acute kidney injury Is this a current diagnosis for this admission?: YesPlan: See attending physician orders. Improving and probably at baseline in view of her history of CKD and right nephrectomy (2) Chronic kidney disease (CKD) stage G4/A1, severely decreased glomerular filtration rate (GFR) between 15-29 mL/min/1.73 square meter and albuminuria creatinine ratio less than 30 mg/g Is this a current diagnosis for this admission?: YesPlan: See attending physician orders. (3) Diabetes mellitus type 2 in obese Is this a current diagnosis for this admission?: YesPlan: See attending physician orders. (4) Obstructive sleep apnea of adult Is this a current diagnosis for this admission?: Yes (5) Chronic CHF (congestive heart failure) Qualifiers: Congestive heart failure type: unspecified congestive heart failure type Qualified Code(s): I50.9 - Heart failure, unspecified Is this a current diagnosis for this admission?: YesPlan: See attending physician orders. Continue to hold Furosemide administration. (6) Lumbar degenerative disc disease Is this a current diagnosis for this admission?: YesPlan: See attending physician orders. (7) Migraine variant with headache Is this a current diagnosis for this admission?: YesPlan: See attending physician orders. (8) Mixed anxiety and depressive disorder Is this a current diagnosis for this admission?: YesPlan: See attending physician orders. (9) Anemia in chronic kidney disease (CKD) Qualifiers: Chronic kidney disease stage: stage 4 (severe) Qualified Code(s): N18.4 - Chronic kidney disease, stage 4 (severe); D63.1 - Anemia in chronic kidney disease Is this a current diagnosis for this admission?: YesPlan: See attending physician orders. (10) Hyperlipidemia Qualifiers: Hyperlipidemia type: pure hypercholesterolemia Qualified Code(s): E78.00 - Pure hypercholesterolemia, unspecified; E78.0 - Pure hypercholesterolemia Is this a current diagnosis for this admission?: YesPlan: See attending physician orders. (11) Hypertension Qualifiers: Hypertension type: essential hypertension Qualified Code(s): I10 - Essential (primary) hypertension Is this a current diagnosis for this admission?: YesPlan: See attending physician orders. (12) CAD (coronary artery disease) Qualifiers: Coronary Disease-Associated Artery/Lesion type: unspecified vessel or lesion type [place] vs. transplanted heart: [place] heart Associated angina: with unspecified angina Qualified Code(s): I25.119 - Atherosclerotic heart disease of [place] coronary artery with unspecified angina pectoris Is this a current diagnosis for this admission?: YesPlan: See attending physician orders. (13) Morbid obesity with BMI of 45.0-49.9, adult Is this a current diagnosis for this admission?: YesPlan: See attending physician orders. - Time Time Spent with patient: 25-34 minutes Medications reviewed and adjusted accordingly: Yes Anticipated discharge: Home with Homehealth - Inpatient Certification Based on my medical assessment, after consideration of the patient's comorbidities, presenting symptoms, or acuity I expect that the services needed warrant INPATIENT care.: Yes I certify that my determination is in accordance with my understanding of Medicare's requirements for reasonable and necessary INPATIENT services [42 CFR 412.3e].: Yes Medical Necessity: Need Close Monitoring Due to Risk of Patient Decompensation, Need For IV Fluids, Need For Continuous Telemetry Monitoring, Risk of Complication if Not Cared For in Hospital Post Hospital Care: D/C Supervisor Pairing And Inspecting Documentation - Plan Summary Plan Summary: See attending physician orders.
[2017-01-31] MEDS: TOPIRAMATE 100 MG TABLET PO SCH (21:09)
[2017-01-31] MEDS: CYCLOBENZAPRINE HCL 10 MG TABLET PO PRN (21:10)
[2017-02-01] MEDS: HEPARIN SOD (PORCINE) 5,000 UNIT/ML 1 ML SYRINGE SUBCUT SCH ×3 (05:47→22:18)
[2017-02-01] MEDS: GABAPENTIN 300 MG CAPSULE PO SCH ×3 (05:47→22:17)
[2017-02-01] MEDS: INSULIN LISPRO 100 UNIT/ML 3 ML VIAL SUBCUT PRN ×4 (08:22→22:30)
[2017-02-01] MEDS: INSULIN LISPRO 100 UNIT/ML 3 ML VIAL SUBCUT SCH ×3 (08:23→17:49)
[2017-02-01 09:12] LABS: ANION GAP 12 (5-19); BLOOD UREA NITROGEN 27 mg/dL (7-20); CALCIUM 9.5 mg/dL (8.4-10.2); CARBON DIOXIDE 20 mmol/L (22-30); CHLORIDE 105 mmol/L (98-107); CREATININE RESULT 1.56 mg/dL (0.52-1.25); GLUCOSE 337 mg/dL (75-110); POTASSIUM 4.8 mmol/L (3.6-5.0); SODIUM 136.9 mmol/L (137-145)
[2017-02-01] MEDS: METOPROLOL SUCCINATE 50 MG TAB.SR.24H PO SCH (10:47)
[2017-02-01] MEDS: ASPIRIN 325 MG TABLET PO SCH (10:48)
[2017-02-01] MEDS: ISOSORBIDE MONONITRATE 30 MG TAB.ER.24H PO SCH (10:49)
[2017-02-01] MEDS: LANSOPRAZOLE 30 MG TAB.RAP.DR PO SCH (10:49)
[2017-02-01] MEDS: HYDRALAZINE HCL 25 MG TABLET PO SCH (10:49)
[2017-02-01] MEDS: FLUOXETINE HCL 20 MG CAPSULE PO SCH (10:49)
[2017-02-01] MEDS: SITAGLIPTIN PHOSPHATE 50 MG TABLET PO SCH (10:50)
[2017-02-01] MEDS: METOCLOPRAMIDE HCL 10 MG TABLET PO SCH ×2 (10:50→22:17)
[2017-02-01] MEDS: CLOPIDOGREL BISULFATE 75 MG TABLET PO SCH (10:50)
[2017-02-01] MEDS: FAMOTIDINE 20 MG TABLET PO SCH ×2 (10:51→22:17)
[2017-02-01] MEDS: TOPIRAMATE 25 MG TABLET PO SCH (10:52)
[2017-02-01] MEDS: RANOLAZINE 500 MG TAB.SR.12H PO SCH ×2 (10:53→22:17)
[2017-02-01] MEDS: ATORVASTATIN CALCIUM 80 MG TABLET PO SCH (10:53)
[2017-02-01] MEDS: NITROGLYCERIN 5 MG (0.2 MG/HR) PATCH.TD24 TD SCH (10:54)
[2017-02-01 14:40] LABS: ALBUMIN 3 3.2 g/dL (2.9-4.4); ALPHA-1-GLOBULIN 0.2 g/dL (0.0-0.4); ALPHA-2-GLOBULIN 3 1.3 g/dL (0.4-1.0); BETA GLOBULIN 1.3 g/dL (0.7-1.3); GLOBULIN TTL 4.4 g/dL (2.2-3.9); IMMUNOGLOBULIN A 336 mg/dL (87-352); IMMUNOGLOBULIN G 1637 mg/dL (700-1600); IMMUNOGLOBULIN M 69 mg/dL (26-217); MONOCLONAL-SPIKE Not Observed g/dL (Not Observed); PROTEIN TOTAL SERUM 7.6 g/dL (6.0-8.5)
[2017-02-01] MEDS: NORMAL SALINE 1000 ML 1,000 ML IV PRN (17:54)
--- NOTE | 2017-02-01 19:23 | PDOC PROGRESS REPORT ---
Subjective Progress Note for:: 02/01/17 Subjective:: Nursing staff reported witnessed fall out of reclined chair while patient was trying to reach for her walking cane since my last clinical evaluation. She was subsequently evaluated by physical therapy team earlier today with recommendation for home PT and walker assistance upon discharge. She remain on IV hydration. She denied nay worsening or significant dizziness and vertigo. She denied any chest pain or difficulty with breathing. No fever or chills. No nausea or vomiting, or abdominal pain. Physical Exam Vital Signs: Temp Pulse Resp BP Pulse Ox 97.6 F 58 L 20 129/67 H 99 02/01/17 15:00 02/01/17 15:00 02/01/17 15:00 02/01/17 15:00 02/01/17 16:11 Intake & Output 01/31/17 02/01/17 02/02/17 06:59 06:59 06:59 Intake Total 4786 4223 3380 Output Total 3500 5000 2000 Balance 1286 -777 1380 Weight 137 kg Physical Exam: General appearance: PRESENT: no acute distress, morbidly obese Head exam: PRESENT: atraumatic, normocephalic Eye exam: PRESENT: conjunctiva pink, EOMI, PERRLA. ABSENT: scleral icterus Mouth exam: PRESENT: moist, tongue midline Respiratory exam: PRESENT: clear to auscultation tarsha Cardiovascular exam: PRESENT: RRR. ABSENT: diastolic murmur, rubs, systolic murmur GI/Abdominal exam: PRESENT: normal bowel sounds, soft. ABSENT: distended, guarding, mass, organomegaly, rebound, tenderness Extremities exam: ABSENT: pedal edema Musculoskeletal exam: PRESENT: normal inspection Neurological exam: PRESENT: alert, awake, oriented to person, oriented to place , oriented to time, oriented to situation, CN II-XII grossly intact. ABSENT: motor sensory deficit Psychiatric exam: PRESENT: appropriate affect, normal mood. ABSENT: homicidal ideation, suicidal ideation Skin exam: PRESENT: dry, intact, warm. ABSENT: cyanosis, rash Results Laboratory Results: 01/28/17 04:20 02/01/17 08:43 01/29/17 01/29/17 01/29/17 07:07 07:07 07:07 Sodium Potassium Chloride Carbon Dioxide Anion Gap BUN Creatinine Est GFR ( Amer) Est GFR (Non-Af Amer) Glucose Calcium Transferrin 228 Total Protein 7.6 Albumin 3.2 PTH Intact 93 H 02/01/17 08:43 Sodium 136.9 L Potassium 4.8 Chloride 105 Carbon Dioxide 20 L Anion Gap 12 BUN 27 H Creatinine 1.56 H Est GFR ( Amer) 42 L Est GFR (Non-Af Amer) 35 L Glucose 337 H Calcium 9.5 Transferrin Total Protein Albumin PTH Intact Impressions: Renal Ultrasound 01/28/17 00:00 IMPRESSION: RIGHT NEPHRECTOMY. OTHERWISE UNREMARKABLE RENAL AND BLADDER ULTRASOUND. Assessment & Plan - Diagnosis (1) Acute kidney injury Is this a current diagnosis for this admission?: Yes (2) Chronic kidney disease (CKD) stage G4/A1, severely decreased glomerular filtration rate (GFR) between 15-29 mL/min/1.73 square meter and albuminuria creatinine ratio less than 30 mg/g Is this a current diagnosis for this admission?: Yes (3) Diabetes mellitus type 2 in obese Is this a current diagnosis for this admission?: Yes (4) Obstructive sleep apnea of adult Is this a current diagnosis for this admission?: Yes (5) Chronic CHF (congestive heart failure) Qualifiers: Congestive heart failure type: unspecified congestive heart failure type Qualified Code(s): I50.9 - Heart failure, unspecified Is this a current diagnosis for this admission?: Yes (6) Lumbar degenerative disc disease Is this a current diagnosis for this admission?: Yes (7) Migraine variant with headache Is this a current diagnosis for this admission?: Yes (8) Mixed anxiety and depressive disorder Is this a current diagnosis for this admission?: Yes (9) Anemia in chronic kidney disease (CKD) Qualifiers: Chronic kidney disease stage: stage 4 (severe) Qualified Code(s): N18.4 - Chronic kidney disease, stage 4 (severe); D63.1 - Anemia in chronic kidney disease Is this a current diagnosis for this admission?: Yes (10) Hyperlipidemia Qualifiers: Hyperlipidemia type: pure hypercholesterolemia Qualified Code(s): E78.00 - Pure hypercholesterolemia, unspecified; E78.0 - Pure hypercholesterolemia Is this a current diagnosis for this admission?: Yes (11) Hypertension Qualifiers: Hypertension type: essential hypertension Qualified Code(s): I10 - Essential (primary) hypertension Is this a current diagnosis for this admission?: Yes (12) CAD (coronary artery disease) Qualifiers: Coronary Disease-Associated Artery/Lesion type: unspecified vessel or lesion type [place] vs. transplanted heart: [place] heart Associated angina: with unspecified angina Qualified Code(s): I25.119 - Atherosclerotic heart disease of [place] coronary artery with unspecified angina pectoris Is this a current diagnosis for this admission?: Yes (13) Morbid obesity with BMI of 45.0-49.9, adult Is this a current diagnosis for this admission?: Yes (14) Fall from chair Qualifiers: Encounter type: initial encounter Qualified Code(s): W07.XXXA - Fall from chair, initial encounter Is this a current diagnosis for this admission?: NoPlan: Continue physical therapy involvement with transfer, balance and gait training. She will be discharge home with [facility] physical therapy service and walker as recommended. - Time Time Spent with patient: 25-34 minutes Medications reviewed and adjusted accordingly: Yes Anticipated discharge: Home with Homehealth Within: Other - Inpatient Certification Medical Necessity: Need Close Monitoring Due to Risk of Patient Decompensation, Need For IV Fluids, Need For Continuous Telemetry Monitoring, Risk of Complication if Not Cared For in Hospital Post Hospital Care: D/C Adjunct Philosophy Faculty Documentation - Plan Summary Plan Summary: Continue current medication management. I will further evaluate adjustment in her Tresiba insulin therapy on outpatient follow up.
[2017-02-01] MEDS: TOPIRAMATE 100 MG TABLET PO SCH (22:17)
[2017-02-01] MEDS: CYCLOBENZAPRINE HCL 10 MG TABLET PO PRN (22:17)
[2017-02-02] MEDS: HEPARIN SOD (PORCINE) 5,000 UNIT/ML 1 ML SYRINGE SUBCUT SCH ×3 (05:04→23:20)
[2017-02-02] MEDS: GABAPENTIN 300 MG CAPSULE PO SCH ×3 (06:39→21:55)
[2017-02-02] MEDS: INSULIN LISPRO 100 UNIT/ML 3 ML VIAL SUBCUT SCH ×3 (08:40→17:38)
[2017-02-02] MEDS: INSULIN LISPRO 100 UNIT/ML 3 ML VIAL SUBCUT PRN ×4 (08:40→21:55)
[2017-02-02] MEDS: ISOSORBIDE MONONITRATE 30 MG TAB.ER.24H PO SCH (10:07)
[2017-02-02] MEDS: LANSOPRAZOLE 30 MG TAB.RAP.DR PO SCH (10:07)
[2017-02-02] MEDS: RANOLAZINE 500 MG TAB.SR.12H PO SCH ×2 (10:08→21:55)
[2017-02-02] MEDS: METOCLOPRAMIDE HCL 10 MG TABLET PO SCH ×2 (10:08→21:55)
[2017-02-02] MEDS: HYDRALAZINE HCL 25 MG TABLET PO SCH (10:09)
[2017-02-02] MEDS: FLUOXETINE HCL 20 MG CAPSULE PO SCH (10:09)
[2017-02-02] MEDS: CLOPIDOGREL BISULFATE 75 MG TABLET PO SCH (10:09)
[2017-02-02] MEDS: SITAGLIPTIN PHOSPHATE 50 MG TABLET PO SCH (10:09)
[2017-02-02] MEDS: ATORVASTATIN CALCIUM 80 MG TABLET PO SCH (10:09)
[2017-02-02] MEDS: TOPIRAMATE 25 MG TABLET PO SCH (10:10)
[2017-02-02] MEDS: ASPIRIN 325 MG TABLET PO SCH (10:10)
[2017-02-02] MEDS: METOPROLOL SUCCINATE 50 MG TAB.SR.24H PO SCH (10:10)
[2017-02-02] MEDS: FAMOTIDINE 20 MG TABLET PO SCH ×2 (10:10→21:55)
[2017-02-02] MEDS: NITROGLYCERIN 5 MG (0.2 MG/HR) PATCH.TD24 TD SCH (10:11)
[2017-02-02] MEDS: NORMAL SALINE 1000 ML 1,000 ML IV PRN (15:11)
--- NOTE | 2017-02-02 19:15 | PDOC PROGRESS REPORT ---
Subjective Progress Note for:: 02/02/17 Subjective:: Nursing staff reported episode of hematuria this morning. Patient claimed prior similar episode without dysuria. No abdominal pain, nausea or vomiting. No fever or chills. Physical therapist ad nursing staff reported that patient was falling asleep while participating in therapy session and most of today. She denied any chest pain or difficulty with breathing. Physical Exam Vital Signs: Temp Pulse Resp BP Pulse Ox 97.4 F 95 21 H 119/72 98 02/02/17 15:18 02/02/17 15:18 02/02/17 15:18 02/02/17 15:18 02/02/17 15:18 Intake & Output 02/01/17 02/02/17 02/03/17 06:59 06:59 06:59 Intake Total 4223 4555 1450 Output Total 5000 2950 300 Balance -777 1605 1150 Weight 137 kg Physical Exam: General appearance: PRESENT: no acute distress, morbidly obese Head exam: PRESENT: atraumatic, normocephalic Eye exam: PRESENT: conjunctiva pink, EOMI, PERRLA. ABSENT: scleral icterus Mouth exam: PRESENT: moist, tongue midline Respiratory exam: PRESENT: clear to auscultation tarsha Cardiovascular exam: PRESENT: RRR. ABSENT: diastolic murmur, rubs, systolic murmur GI/Abdominal exam: PRESENT: normal bowel sounds, soft. ABSENT: distended, guarding, mass, organomegaly, rebound, tenderness Extremities exam: ABSENT: pedal edema Musculoskeletal exam: PRESENT: normal inspection Neurological exam: PRESENT: alert, awake, oriented to person, oriented to place , oriented to time, oriented to situation, CN II-XII grossly intact. ABSENT: motor sensory deficit Psychiatric exam: PRESENT: appropriate affect, normal mood. ABSENT: homicidal ideation, suicidal ideation Skin exam: PRESENT: dry, intact, warm. ABSENT: cyanosis, rash Results Laboratory Results: 01/28/17 04:20 02/01/17 08:43 Impressions: Renal Ultrasound 01/28/17 00:00 IMPRESSION: RIGHT NEPHRECTOMY. OTHERWISE UNREMARKABLE RENAL AND BLADDER ULTRASOUND. Assessment & Plan - Diagnosis (1) Acute kidney injury Is this a current diagnosis for this admission?: Yes (2) Chronic kidney disease (CKD) stage G4/A1, severely decreased glomerular filtration rate (GFR) between 15-29 mL/min/1.73 square meter and albuminuria creatinine ratio less than 30 mg/g Is this a current diagnosis for this admission?: Yes (3) Diabetes mellitus type 2 in obese Is this a current diagnosis for this admission?: Yes (4) Obstructive sleep apnea of adult Is this a current diagnosis for this admission?: Yes (5) Chronic CHF (congestive heart failure) Qualifiers: Congestive heart failure type: unspecified congestive heart failure type Qualified Code(s): I50.9 - Heart failure, unspecified Is this a current diagnosis for this admission?: Yes (6) Lumbar degenerative disc disease Is this a current diagnosis for this admission?: Yes (7) Migraine variant with headache Is this a current diagnosis for this admission?: Yes (8) Mixed anxiety and depressive disorder Is this a current diagnosis for this admission?: Yes (9) Anemia in chronic kidney disease (CKD) Qualifiers: Chronic kidney disease stage: stage 4 (severe) Qualified Code(s): N18.4 - Chronic kidney disease, stage 4 (severe); D63.1 - Anemia in chronic kidney disease Is this a current diagnosis for this admission?: Yes (10) Hyperlipidemia Qualifiers: Hyperlipidemia type: pure hypercholesterolemia Qualified Code(s): E78.00 - Pure hypercholesterolemia, unspecified; E78.0 - Pure hypercholesterolemia Is this a current diagnosis for this admission?: Yes (11) Hypertension Qualifiers: Hypertension type: essential hypertension Qualified Code(s): I10 - Essential (primary) hypertension Is this a current diagnosis for this admission?: Yes (12) CAD (coronary artery disease) Qualifiers: Coronary Disease-Associated Artery/Lesion type: unspecified vessel or lesion type [place] vs. transplanted heart: [place] heart Associated angina: with unspecified angina Qualified Code(s): I25.119 - Atherosclerotic heart disease of [place] coronary artery with unspecified angina pectoris Is this a current diagnosis for this admission?: Yes (13) Morbid obesity with BMI of 45.0-49.9, adult Is this a current diagnosis for this admission?: Yes (14) Fall from chair Qualifiers: Encounter type: initial encounter Qualified Code(s): W07.XXXA - Fall from chair, initial encounter Is this a current diagnosis for this admission?: No - Time Time Spent with patient: 25-34 minutes Medications reviewed and adjusted accordingly: Yes Anticipated discharge: Home with Homehealth Within: Other - Inpatient Certification Based on my medical assessment, after consideration of the patient's comorbidities, presenting symptoms, or acuity I expect that the services needed warrant INPATIENT care.: Yes I certify that my determination is in accordance with my understanding of Medicare's requirements for reasonable and necessary INPATIENT services [42 CFR 412.3e].: Yes Medical Necessity: Need Close Monitoring Due to Risk of Patient Decompensation, Need For IV Fluids, Need For Continuous Telemetry Monitoring, Risk of Complication if Not Cared For in Hospital Post Hospital Care: D/C Real Estate Acquisition Analyst Documentation - Plan Summary Plan Summary: Obtain U/A. Start on Lantus insulin therapy as substitute for Tresiba presently off formulary in the hospital. Continue all other current medication management.
[2017-02-02] MEDS: TOPIRAMATE 100 MG TABLET PO SCH (21:53)
[2017-02-02] MEDS: INSULIN GLARGINE,HUM.REC.ANLOG 300 UNIT/3 ML INSULN.PEN SUBCUT SCH (21:55)
[2017-02-02 22:01] LABS: APPEARANCE,URINE SLIGHTLY-CLOUDY; BILIRUBIN,URINE NEGATIVE (NEGATIVE); GLUCOSE, URINE >=500 mg/dL (NEGATIVE); KETONES,URINE NEGATIVE (NEGATIVE); LEUKOCYTE ESTERASE,URINE SMALL (NEGATIVE); NITRITE,URINE NEGATIVE (NEGATIVE); PROTEIN,URINE NEGATIVE (NEGATIVE); URINE SPECIFIC GRAVITY 1.003; UROBILINOGEN,URINE NEGATIVE mg/dL (<2.0)
[2017-02-03] MEDS: HEPARIN SOD (PORCINE) 5,000 UNIT/ML 1 ML SYRINGE SUBCUT SCH ×3 (06:21→22:54)
[2017-02-03] MEDS: GABAPENTIN 300 MG CAPSULE PO SCH ×3 (06:21→22:52)
[2017-02-03] MEDS: INSULIN LISPRO 100 UNIT/ML 3 ML VIAL SUBCUT PRN ×4 (08:41→22:53)
[2017-02-03] MEDS: INSULIN LISPRO 100 UNIT/ML 3 ML VIAL SUBCUT SCH ×3 (08:41→17:11)
[2017-02-03] MEDS: SITAGLIPTIN PHOSPHATE 50 MG TABLET PO SCH (10:46)
[2017-02-03] MEDS: LANSOPRAZOLE 30 MG TAB.RAP.DR PO SCH (10:46)
[2017-02-03] MEDS: TOPIRAMATE 25 MG TABLET PO SCH (10:46)
[2017-02-03] MEDS: FAMOTIDINE 20 MG TABLET PO SCH ×2 (10:47→22:52)
[2017-02-03] MEDS: METOCLOPRAMIDE HCL 10 MG TABLET PO SCH ×2 (10:47→22:53)
[2017-02-03] MEDS: ATORVASTATIN CALCIUM 80 MG TABLET PO SCH (10:47)
[2017-02-03] MEDS: METOPROLOL SUCCINATE 50 MG TAB.SR.24H PO SCH (10:47)
[2017-02-03] MEDS: FLUOXETINE HCL 20 MG CAPSULE PO SCH (10:48)
[2017-02-03] MEDS: CLOPIDOGREL BISULFATE 75 MG TABLET PO SCH (10:48)
[2017-02-03] MEDS: HYDRALAZINE HCL 25 MG TABLET PO SCH (10:48)
[2017-02-03] MEDS: ISOSORBIDE MONONITRATE 30 MG TAB.ER.24H PO SCH (10:48)
[2017-02-03] MEDS: RANOLAZINE 500 MG TAB.SR.12H PO SCH ×2 (10:49→22:52)
[2017-02-03] MEDS: NITROGLYCERIN 5 MG (0.2 MG/HR) PATCH.TD24 TD SCH (10:49)
[2017-02-03] MEDS: ASPIRIN 325 MG TABLET PO SCH (10:49)
[2017-02-03] MEDS: NORMAL SALINE 1000 ML 1,000 ML IV PRN (11:42)
[2017-02-03] MEDS ORDERED: SULFAMETHOXAZOLE/TRIMETHOPRIM 800-160 MG TABLET PO ONE (14:08)
[2017-02-03] MEDS: ACETAMINOPHEN 325 MG TABLET PO PRN ×2 (16:05→22:54)
[2017-02-03] MEDS ORDERED: SULFAMETHOXAZOLE/TRIMETHOPRIM 800-160 MG TABLET PO SCH (18:00)
--- NOTE | 2017-02-03 19:25 | PDOC PROGRESS REPORT ---
Subjective Progress Note for:: 02/03/17 Subjective:: She denied any chest pain or difficulty with breathing. No abdominal pain, nausea or vomiting. No fever or chills. No recurrent hematuria. Physical Exam Vital Signs: Temp Pulse Resp BP Pulse Ox 97.6 F 75 17 118/70 97 02/03/17 15:54 02/03/17 15:54 02/03/17 15:54 02/03/17 15:54 02/03/17 15:54 Intake & Output 02/02/17 02/03/17 02/04/17 06:59 06:59 06:59 Intake Total 4555 2894 2272 Output Total 2950 1550 1000 Balance 1605 1344 1272 Physical Exam: General appearance: PRESENT: no acute distress, morbidly obese Head exam: PRESENT: atraumatic, normocephalic Eye exam: PRESENT: conjunctiva pink, EOMI, PERRLA. ABSENT: scleral icterus Mouth exam: PRESENT: moist, tongue midline Respiratory exam: PRESENT: clear to auscultation tarsha Cardiovascular exam: PRESENT: RRR. ABSENT: diastolic murmur, rubs, systolic murmur GI/Abdominal exam: PRESENT: normal bowel sounds, soft. ABSENT: distended, guarding, mass, organomegaly, rebound, tenderness Extremities exam: ABSENT: pedal edema Musculoskeletal exam: PRESENT: normal inspection Neurological exam: PRESENT: alert, awake, oriented to person, oriented to place , oriented to time, oriented to situation, CN II-XII grossly intact. ABSENT: motor sensory deficit Psychiatric exam: PRESENT: appropriate affect, normal mood. ABSENT: homicidal ideation, suicidal ideation Skin exam: PRESENT: dry, intact, warm. ABSENT: cyanosis, rash Results Laboratory Results: 01/28/17 04:20 02/01/17 08:43 02/02/17 21:39 Urine Color YELLOW Urine Appearance SLIGHTLY-CLOUDY Urine pH 6.0 Ur Specific Bow 1.003 Urine Protein NEGATIVE Urine Glucose (UA) >=500 H Urine Ketones NEGATIVE Urine Blood MODERATE H Urine Nitrite NEGATIVE Ur Leukocyte Esterase SMALL H Urine WBC (Auto) 19 Urine RBC (Auto) 18 Impressions: Renal Ultrasound 01/28/17 00:00 IMPRESSION: RIGHT NEPHRECTOMY. OTHERWISE UNREMARKABLE RENAL AND BLADDER ULTRASOUND. Assessment & Plan - Diagnosis (1) Acute kidney injury Is this a current diagnosis for this admission?: Yes (2) Chronic kidney disease (CKD) stage G4/A1, severely decreased glomerular filtration rate (GFR) between 15-29 mL/min/1.73 square meter and albuminuria creatinine ratio less than 30 mg/g Is this a current diagnosis for this admission?: Yes (3) Diabetes mellitus type 2 in obese Is this a current diagnosis for this admission?: Yes (4) Obstructive sleep apnea of adult Is this a current diagnosis for this admission?: Yes (5) Chronic CHF (congestive heart failure) Qualifiers: Congestive heart failure type: unspecified congestive heart failure type Qualified Code(s): I50.9 - Heart failure, unspecified Is this a current diagnosis for this admission?: Yes (6) Lumbar degenerative disc disease Is this a current diagnosis for this admission?: Yes (7) Migraine variant with headache Is this a current diagnosis for this admission?: Yes (8) Mixed anxiety and depressive disorder Is this a current diagnosis for this admission?: Yes (9) Anemia in chronic kidney disease (CKD) Qualifiers: Chronic kidney disease stage: stage 4 (severe) Qualified Code(s): N18.4 - Chronic kidney disease, stage 4 (severe); D63.1 - Anemia in chronic kidney disease Is this a current diagnosis for this admission?: Yes (10) Hyperlipidemia Qualifiers: Hyperlipidemia type: pure hypercholesterolemia Qualified Code(s): E78.00 - Pure hypercholesterolemia, unspecified; E78.0 - Pure hypercholesterolemia Is this a current diagnosis for this admission?: Yes (11) Hypertension Qualifiers: Hypertension type: essential hypertension Qualified Code(s): I10 - Essential (primary) hypertension Is this a current diagnosis for this admission?: Yes (12) CAD (coronary artery disease) Qualifiers: Coronary Disease-Associated Artery/Lesion type: unspecified vessel or lesion type [place] vs. transplanted heart: [place] heart Associated angina: with unspecified angina Qualified Code(s): I25.119 - Atherosclerotic heart disease of [place] coronary artery with unspecified angina pectoris Is this a current diagnosis for this admission?: Yes (13) Morbid obesity with BMI of 45.0-49.9, adult Is this a current diagnosis for this admission?: Yes (14) Fall from chair Qualifiers: Encounter type: initial encounter Qualified Code(s): W07.XXXA - Fall from chair, initial encounter Is this a current diagnosis for this admission?: No (15) Probable sepsis Is this a current diagnosis for this admission?: NoPlan: Her Urinalysis suggested possible UTI as cause of her hematuria. I will start on Bactrim DS 1 tablet today and 1/2 tablet twice daily from tomorrow. If patient remain afebrile and CBC do not reveal leukocytosis, I will consider D/C home tomorrow with [facility] service and walker. - Time Time Spent with patient: 25-34 minutes Medications reviewed and adjusted accordingly: Yes Anticipated discharge: Other Within: Other - Inpatient Certification Medical Necessity: Need Close Monitoring Due to Risk of Patient Decompensation, Need For IV Fluids, Need For Continuous Telemetry Monitoring, Risk of Complication if Not Cared For in Hospital Post Hospital Care: D/C Signal Manager Documentation - Plan Summary Plan Summary: See attending physician orders.
[2017-02-03] MEDS: TOPIRAMATE 100 MG TABLET PO SCH (22:53)
[2017-02-03] MEDS: INSULIN GLARGINE,HUM.REC.ANLOG 300 UNIT/3 ML INSULN.PEN SUBCUT SCH (22:53)
[2017-02-04] MEDS: GABAPENTIN 300 MG CAPSULE PO SCH ×2 (06:43→14:14)
[2017-02-04] MEDS: HEPARIN SOD (PORCINE) 5,000 UNIT/ML 1 ML SYRINGE SUBCUT SCH (06:43)
[2017-02-04] MEDS ORDERED: SULFAMETHOXAZOLE/TRIMETHOPRIM 800-160 MG TABLET PO SCH (10:00)
[2017-02-04] MEDS: INSULIN LISPRO 100 UNIT/ML 3 ML VIAL SUBCUT SCH ×2 (10:04→12:00)
[2017-02-04] MEDS: LANSOPRAZOLE 30 MG TAB.RAP.DR PO SCH (10:13)
[2017-02-04] MEDS: FAMOTIDINE 20 MG TABLET PO SCH (10:13)
[2017-02-04] MEDS: RANOLAZINE 500 MG TAB.SR.12H PO SCH (10:13)
[2017-02-04] MEDS: ASPIRIN 325 MG TABLET PO SCH (10:14)
[2017-02-04] MEDS: HYDRALAZINE HCL 25 MG TABLET PO SCH (10:14)
[2017-02-04] MEDS: ISOSORBIDE MONONITRATE 30 MG TAB.ER.24H PO SCH (10:14)
[2017-02-04] MEDS: CLOPIDOGREL BISULFATE 75 MG TABLET PO SCH (10:15)
[2017-02-04] MEDS: ATORVASTATIN CALCIUM 80 MG TABLET PO SCH (10:15)
[2017-02-04] MEDS: FLUOXETINE HCL 20 MG CAPSULE PO SCH (10:15)
[2017-02-04] MEDS: NORMAL SALINE 1000 ML 1,000 ML IV PRN (10:18)
[2017-02-04] MEDS: NITROGLYCERIN 5 MG (0.2 MG/HR) PATCH.TD24 TD SCH (10:48)
[2017-02-04] MEDS: SITAGLIPTIN PHOSPHATE 50 MG TABLET PO SCH (10:49)
[2017-02-04] MEDS: METOPROLOL SUCCINATE 50 MG TAB.SR.24H PO SCH (10:49)
[2017-02-04] MEDS: TOPIRAMATE 25 MG TABLET PO SCH (10:50)
[2017-02-04] MEDS: METOCLOPRAMIDE HCL 10 MG TABLET PO SCH (10:50)
[2017-02-04 13:17] VITALS: BP 137/78
--- NOTE | 2017-02-04 13:59 | PDOC DISCHARGE SUMMARY ---
General - Admit/Disc Date/PCP Admission Date/Primary Care Provider: 01/30/17 11:50 MELODY BEAVERS PA-C Discharge Date: 02/04/17 - Discharge Diagnosis (1) Acute kidney injury Is this a current diagnosis for this admission?: Yes (2) Chronic kidney disease (CKD) stage G4/A1, severely decreased glomerular filtration rate (GFR) between 15-29 mL/min/1.73 square meter and albuminuria creatinine ratio less than 30 mg/g Is this a current diagnosis for this admission?: Yes (3) Diabetes mellitus type 2 in obese Is this a current diagnosis for this admission?: Yes (4) Obstructive sleep apnea of adult Is this a current diagnosis for this admission?: Yes (5) Chronic CHF (congestive heart failure) Is this a current diagnosis for this admission?: Yes (6) Lumbar degenerative disc disease Is this a current diagnosis for this admission?: Yes (7) Migraine variant with headache Is this a current diagnosis for this admission?: Yes (8) Mixed anxiety and depressive disorder Is this a current diagnosis for this admission?: Yes (9) Anemia in chronic kidney disease (CKD) Is this a current diagnosis for this admission?: Yes (10) Hyperlipidemia Is this a current diagnosis for this admission?: Yes (11) Hypertension Is this a current diagnosis for this admission?: Yes (12) CAD (coronary artery disease) Is this a current diagnosis for this admission?: Yes (13) Morbid obesity with BMI of 45.0-49.9, adult Is this a current diagnosis for this admission?: Yes (14) Fall from chair Is this a current diagnosis for this admission?: No (15) Probable sepsis Is this a current diagnosis for this admission?: No - Additional Information Discharge Diet: Cardiac, Diabetic Discharge Activity: Activity As Tolerated, Slowly Increase Activity, Supervised Activity Home Medications: Alprazolam [Xanax 0.5 mg Tablet] 0.5 mg PO Q12HP PRN 01/27/17 Aspirin [Aspirin 325 mg Tablet] 325 mg PO DAILY 01/27/17 Atorvastatin Calcium [Lipitor 80 mg Tablet] 80 mg PO DAILY 01/27/17 Clopidogrel Bisulfate [Clopidogrel] 75 mg PO DAILY 01/27/17 Cyclobenzaprine HCl [Flexeril 10 mg Tablet] 10 mg PO HSP PRN 01/27/17 Fluoxetine HCl [Prozac 20 mg Capsule] 20 mg PO DAILY 01/27/17 Gabapentin [Neurontin] 600 mg PO Q8 01/27/17 Hydralazine HCl [Apresoline 25 mg Tablet] 25 mg PO DAILY 01/27/17 Insulin Aspart [Novolog Flexpen] 10 units SQ MEALS 01/27/17 Insulin Degludec [Tresiba Flextouch U-100] 70 units SQ QHS 01/27/17 Isosorbide Mononitrate [Isosorbide Mononitrate ER] 30 mg PO DAILY 01/27/17 Linagliptin [Tradjenta] 5 mg PO DAILY 01/27/17 Lisinopril [Prinivil] 20 mg PO DAILY 01/27/17 Metoclopramide HCl [Reglan] 5 mg PO Q12 01/27/17 Metoprolol Succinate [Toprol XL 100 mg Tablet] 100 mg PO DAILY 01/27/17 Nitroglycerin [Nitro-Dur 5 mg (0.2 mg/Hr) Transdermal Patch] 1 patch TD DAILY 01/27/17 Nitroglycerin [Nitrostat] 0.3 mg SL Q15MP PRN MDD 3 TABS 01/27/17 Ranitidine HCl [Zantac 150 mg Tablet] 150 mg PO Q12 01/27/17 Ranolazine [Ranexa 500 mg Tab.sr] 500 mg PO Q12 01/27/17 Topiramate [Topamax] 50 mg PO DAILY 01/27/17 Topiramate [Topamax] 100 mg PO QHS 01/27/17 Zaleplon [Sonata] 5 mg PO HSP PRN 01/27/17 Sulfamethoxazole/Trimethoprim [Bactrim 400-80 mg Tablet] 1 each PO BID #14 tablet 02/04/17 History of Present Illness History of Present Illness: JESU ORR is a 56 year old female who presented to the office earlier today for follow up management of diabetes mellitus type 2, hypertension, obstructive sleep apnea and chronic pain syndrome related to degenerative dis disease but raised issue with need for referral to another net making supervisor due to worsening renal function as per result of her recent chemistry test completed on 01/19/2017 at outpatient lab under directive of Dr Suárez, drop wirer, that led to cancellation of her schedule cardiac catheterization. Patient has history of chronic kidney disease and was consulting with Dr Hebert, net making supervisor, but requested for a new net making supervisor due to financial limitation. Due to her other associated reported symptoms including dizziness, headache, increased thirst, shortness of breath, intermittent tachycardia, and slight disorientation she was advised hospitalization for further evaluation and management. Hospital Course Hospital Course: Patient did respond to IV fluid hydration with discontinuation of Furosemide usage. She was seen in consultation by Dr Justice Kiran for ANA. Her renal indices did improved to possibly her baseline. She will follow up with Dr Justice Kiran on outpatient bases for further management of her CKD. Her hospital stay was complicated with incident of fall while she was reaching for her cane seating in recliner chair. She had episode of hematuria that prompted urinalysis and culture that were suggestive of possible infection with gram negative rods > 100,000 colony. Organism identification and sensitivity are ending at the time of her discharge. She was discharged home on Bactrim SS 1 tablet p.o bid x 7 days. I will follow up on the culture result on outpatient bases. Physical Exam Vital Signs: Temp Pulse Resp BP Pulse Ox 97.1 F 86 20 137/78 H 97 02/04/17 12:00 02/04/17 12:00 02/04/17 12:00 02/04/17 12:00 02/04/17 12:00 Intake & Output 02/03/17 02/04/17 02/05/17 06:59 06:59 06:59 Intake Total 2894 3637 Output Total 1550 1500 Balance 1344 2137 Weight 134.8 kg Physical Exam: General appearance: PRESENT: no acute distress, morbidly obese Head exam: PRESENT: atraumatic, normocephalic Eye exam: PRESENT: conjunctiva pink, EOMI, PERRLA. ABSENT: scleral icterus Mouth exam: PRESENT: moist, tongue midline Respiratory exam: PRESENT: clear to auscultation tarsha Cardiovascular exam: PRESENT: RRR. ABSENT: diastolic murmur, rubs, systolic murmur GI/Abdominal exam: PRESENT: normal bowel sounds, soft. ABSENT: distended, guarding, mass, organomegaly, rebound, tenderness Extremities exam: ABSENT: pedal edema Musculoskeletal exam: PRESENT: normal inspection Neurological exam: PRESENT: alert, awake, oriented to person, oriented to place , oriented to time, oriented to situation, CN II-XII grossly intact. ABSENT: motor sensory deficit Psychiatric exam: PRESENT: appropriate affect, normal mood. ABSENT: homicidal ideation, suicidal ideation Skin exam: PRESENT: dry, intact, warm. ABSENT: cyanosis, rash Results Laboratory Results: 01/28/17 04:20 02/01/17 08:43 Impressions: Renal Ultrasound 01/28/17 00:00 IMPRESSION: RIGHT NEPHRECTOMY. OTHERWISE UNREMARKABLE RENAL AND BLADDER ULTRASOUND. Qualifiers PATEINT BEING DISCHARGED WITH ANY OF THE FOLLOWING DIAGNOSIS?: No Plan Discharge Plan: Discharge home today. Follow up in the office as instructed upon discharge. She will be discharge home with [employer] services including visiting nurse, administrative personal assistant and physical therapy. She will be discharged with four wheel walker. She will follow up with Dr Justice Kiran, net making supervisor, and Dr Suárez drop wirer for management of her CKD and TREY on CPAP machine. I discussed with patient at [facility] with juan to her post hospitalization care during my bedside consultation today. Time Spent: Less than 30 Minutes
== END 2017-02-04 16:03 | disposition home health service (06) | DRG 683 ==
LOC: 4W 16:37 → OBSVTOIN 01-30 11:50 → 4N 02-01 14:30
PROVIDERS: ADMIT Internal Medicine Geriatric Medicine; ATTEND Internal Medicine Geriatric Medicine
PROC: 5A09457 Assistance with Respiratory Ventilation, 24-96 Consecutive Hours, Continuous Positive Airway Pressure (ICD-10-PCS; principal; 2017-01-27)
DX: N17.9 Acute kidney failure, unspecified (principal); I13.0 Hypertensive heart and chronic kidney disease with heart failure and stage 1 through stage 4 chronic kidney disease, or unspecified chronic kidney disease; Z68.42 Body mass index [BMI] 45.0-49.9, adult; N39.0 Urinary tract infection, site not specified; I50.9 Heart failure, unspecified; N18.4 Chronic kidney disease, stage 4 (severe); E11.22 Type 2 diabetes mellitus with diabetic chronic kidney disease; E66.01 Morbid (severe) obesity due to excess calories; G47.33 Obstructive sleep apnea (adult) (pediatric); M51.36 Other intervertebral disc degeneration, lumbar region; G43.909 Migraine, unspecified, not intractable, without status migrainosus; G44.89 Other headache syndrome; F41.8 Other specified anxiety disorders; D63.1 Anemia in chronic kidney disease; E78.5 Hyperlipidemia, unspecified; I25.119 Atherosclerotic heart disease of native coronary artery with unspecified angina pectoris; W07.XXXA Fall from chair, initial encounter; Y92.230 Patient room in hospital as the place of occurrence of the external cause; E11.65 Type 2 diabetes mellitus with hyperglycemia; M19.90 Unspecified osteoarthritis, unspecified site; M06.9 Rheumatoid arthritis, unspecified; R31.9 Hematuria, unspecified; Z90.5 Acquired absence of kidney; Z85.528 Personal history of other malignant neoplasm of kidney; Z98.42 Cataract extraction status, left eye; Z98.41 Cataract extraction status, right eye; Z79.82 Long term (current) use of aspirin; Z79.4 Long term (current) use of insulin; Z79.899 Other long term (current) drug therapy; Z95.5 Presence of coronary angioplasty implant and graft; Z59.9 Problem related to housing and economic circumstances, unspecified; Z90.49 Acquired absence of other specified parts of digestive tract; Z89.412 Acquired absence of left great toe; Z87.891 Personal history of nicotine dependence; Z88.0 Allergy status to penicillin
CPT/HCPCS: 36415; 76775; 80048; 80053; 81001; 82607; 82728; 82746; 82962; 83540; 83550; 83735; 83970; 84100; 84466; 85025; 85045; 86320; 87086; 87088; 87186; 94660; G0378; G0379; G8978-GP; G8979-GP; J1644; J1815; J3490; J7030

== ENCOUNTER 2017-02-08 16:53 | Emergency (ER) | payer MEDICARE, MEDICAID ==
--- NOTE | 2017-02-08 18:09 | ER Document Report ---
ED General - General Stated Complaint: POSSIBLE OVERDOSE Notes: 56-year-old female presents with confusion and dizziness and malaise onset this morning about an hour after she mistakenly took her entire days dose of gabapentin, which was 1200 mg, along with a double dose of her Flexeril. She has chronic back pain. She also has diabetes but did check her sugar and it was 170 before she arrived. She complains of back pain and is feeling much better now from a confusion standpoint that she was before. TRAVEL OUTSIDE OF THE [place] IN LAST 30 DAYS: No - Related Data Allergies/Adverse Reactions: Penicillins Allergy (Unknown, Verified 11/20/15 21:13) Past Medical History - General Information source: Patient - Social History Smoking Status: Unknown if Ever Smoked Family History: Reviewed & Not Pertinent - Past Medical History Cardiac Medical History: Reports: Hx Congestive Heart Failure, Hx Coronary Artery Disease, Hx Hypertension Denies: Hx DVT Endocrine Medical History: Reports: Hx Diabetes Mellitus Type 1, Hx Diabetes Mellitus Type 2 Renal/ Medical History: Reports: Hx End Stage Renal Disease - stage 3. Denies : Hx Peritoneal Dialysis Malignancy Medical History: Reports: Hx Renal (Kidney) Cancer - s/p right nephrectomy September, Psychiatric Medical History: Reports: Hx Depression Past Surgical History: Reports: Hx Cardiac Surgery - stents, Hx Cholecystectomy , Hx Coronary Stent - 2013, Hx Kidney (Renal Surgery) - right nephrectomy, Hx Orthopedic Surgery - Left great toe amputation - Immunizations Hx Diphtheria, Pertussis, Tetanus Vaccination: Yes Hx Pneumococcal Vaccination: 07/11/13 Review of Systems - Review of Systems Notes: REVIEW OF SYSTEMS GEN: Denies fever, chills, weight loss ENT: Denies sore throat, nasal discharge, ear pain EYES: Denies blurry vision, eye pain, discharge CV: Denies chest pain, palpitations, edema RESP: Denies cough, shortness of breath, wheezing GI: Denies abdominal pain, nausea, vomiting, diarrhea MSK: Denies joint pain/swelling, edema, SKIN: Denies rash, skin lesions LYMPH: Denies swollen glands/lymph nodes NEURO: Dizziness PSYCH: Denies depression, suicidal or homicidal ideation PHYSICAL EXAMINATION General: No acute distress, well-nourished Head: Atraumatic, normocephalic ENT: Mouth normal, oropharynx moist, no exudates or tonsillar enlargement Eyes: Conjunctiva normal, pupils equal, lids normal Neck: No JVD, supple, no guarding CVS: Normal rate, regular rhythm, no murmurs Resp: No resp distress, equal and normal breath sounds bilaterally GI: Nondistended, soft, no tenderness to palpation, no rebound or guarding Ext: No deformities, no edema, normal range of motion in upper and lower ext Back: No CVA or midline TTP Skin: No rash, warm Lymphatic: No lymphadeopathy noted Neuro: Awake, alert. Face symmetric. GCS 15. Physical Exam - Vital signs Vitals: Temp Pulse Resp BP Pulse Ox 97.1 F 82 14 101/60 94 02/08/17 18:40 02/08/17 18:40 02/08/17 18:40 02/08/17 18:40 02/08/17 18:40 Course - Re-evaluation Re-evalutation: 02/08/17 18:57 Unintentional overdose of gabapentin and Flexeril without any particular toxidrome or instability. Will status with vital signs within normal limits. Patient complaining of pain asking for more meds. She is stable for discharge. I will not give her any more meds and asked her to not take any of her pain mental tomorrow. I have discussed with the patient there likely diagnosis, aftercare plan, follow -up plans and my usual and customary return precautions. They verbalized understanding of this. - Vital Signs Vital signs: Temp Pulse Resp BP Pulse Ox 97.1 F 82 14 101/60 94 02/08/17 18:40 02/08/17 18:40 02/08/17 18:40 02/08/17 18:40 02/08/17 18:40 Discharge - Discharge Clinical Impression: Gabapentin overdose Qualifiers: Encounter type: initial encounter Injury intent: accidental or unintentional Qualified Code(s): T42.6X1A - Poisoning by other antiepileptic and sedative- hypnotic drugs, accidental (unintentional), initial encounter Clinical Impression: (Ruled Out): Accidental acetaminophen overdose Condition: Good Disposition: HOME, SELF-CARE Additional Instructions: Please do not take any of your pain medication for the next 24 hours. Please speak with your doctor about ways to reduce the possibility of medication error including blister packs, prepackaged medications.
[2017-02-08 18:41] VITALS: BP 101/60
== END 2017-02-08 19:32 | disposition home or self-care (01) ==
LOC: ER 16:53
DX: T42.6X1A Poisoning by other antiepileptic and sedative-hypnotic drugs, accidental (unintentional), initial encounter (principal); T48.1X1A Poisoning by skeletal muscle relaxants [neuromuscular blocking agents], accidental (unintentional), initial encounter; R41.0 Disorientation, unspecified; R53.81 Other malaise; M54.9 Dorsalgia, unspecified; G89.29 Other chronic pain; E11.9 Type 2 diabetes mellitus without complications; I25.10 Atherosclerotic heart disease of native coronary artery without angina pectoris; I10 Essential (primary) hypertension; Z79.899 Other long term (current) drug therapy; Z88.0 Allergy status to penicillin; Z85.528 Personal history of other malignant neoplasm of kidney; Z90.5 Acquired absence of kidney; Z98.61 Coronary angioplasty status
CPT/HCPCS: 99283

== ENCOUNTER 2017-02-10 13:42 | Emergency (ER) | payer MEDICARE, MEDICAID ==
--- NOTE | 2017-02-10 14:16 | ER Document Report ---
ED Medical Screen (RME) - General Chief Complaint: Urinary Problem Stated Complaint: BLOOD IN URINE Time Seen by Provider: 02/10/17 14:01 Mode of Arrival: Wheelchair Information source: Patient TRAVEL OUTSIDE OF THE [place] IN LAST 30 DAYS: No - HPI Patient complains to provider of: hematuria and chest pain Notes: 02/10/17 14:15 Patient is a 56-year-old female who presents to the emergency room today complaining of hematuria that she noted today, with sharp stabbing chest pain that been going on intermittently for 3 days, states she spoke to her primary care provider, Dr. Nye who told her to come to the emergency room for evaluation - Related Data Allergies/Adverse Reactions: Penicillins Allergy (Unknown, Verified 02/10/17 13:56) Past Medical History - Past Medical History Cardiac Medical History: Reports: Hx Congestive Heart Failure, Hx Coronary Artery Disease, Hx Hypertension Denies: Hx DVT Endocrine Medical History: Reports: Hx Diabetes Mellitus Type 1, Hx Diabetes Mellitus Type 2 Renal/ Medical History: Reports: Hx End Stage Renal Disease - stage 3. Denies : Hx Peritoneal Dialysis Malignancy Medical History: Reports: Hx Renal (Kidney) Cancer - s/p right nephrectomy September, Psychiatric Medical History: Reports: Hx Depression Past Surgical History: Reports: Hx Cardiac Surgery - stents, Hx Cholecystectomy , Hx Coronary Stent - 2013, Hx Kidney (Renal Surgery) - right nephrectomy, Hx Orthopedic Surgery - Left great toe amputation - Immunizations Hx Diphtheria, Pertussis, Tetanus Vaccination: Yes Physical Exam - Vital signs Vitals: Temp Pulse Resp BP Pulse Ox 98.6 F 77 18 111/64 95 02/10/17 13:56 02/10/17 13:56 02/10/17 13:56 02/10/17 13:56 02/10/17 13:56 Course - Vital Signs Vital signs: Temp Pulse Resp BP Pulse Ox 98.6 F 77 18 111/64 95 02/10/17 13:56 02/10/17 13:56 02/10/17 13:56 02/10/17 13:56 02/10/17 13:56
[2017-02-10 14:47] LABS: ABSOLUTE BASOPHILS # (AUTO) 0.1 10^3/uL (0.0-0.2); ABSOLUTE EOSINOPHILS # (AUTO) 0.9 10^3/uL (0.0-0.6); ABSOLUTE LYMPHOCYTES (AUTO) 3.3 10^3/uL (0.5-4.7); ABSOLUTE MONOCYTES (AUTO) 0.6 10^3/uL (0.1-1.4); ABSOLUTE NEUT (AUTO) 6.2 10^3/uL (1.7-8.2); EOSINOPHILS % (AUTO) 8.3 % (0-6); HEMATOCRIT 32.7 % (36.0-47.0); HEMOGLOBIN 10.7 g/dL (12.0-15.5); HGB HCT DIFFERENCE -0.6; LYMPHOCYTES % (AUTO) 29.4 % (13-45); MEAN CORPUSCULAR HEMOGLOBIN 26.9 pg (27.0-33.4); MEAN CORPUSCULAR HGB CONC 32.9 g/dL (32.0-36.0); MEAN CORPUSCULAR VOLUME 82 fl (80-97); MONOCYTES % (AUTO) 5.7 % (3-13); RED CELL DISTRIBUTION WIDTH 15.5 % (11.5-14.0); SEGMENTED NEUTROPHILS % (AUTO) 55.6 % (42-78); WHITE BLOOD COUNT 11.2 10^3/uL (4.0-10.5)
[2017-02-10 14:57] LABS: APPEARANCE,URINE SLIGHTLY-CLOUDY; BILIRUBIN,URINE NEGATIVE (NEGATIVE); GLUCOSE, URINE 50 mg/dL (NEGATIVE); KETONES,URINE NEGATIVE (NEGATIVE); LEUKOCYTE ESTERASE,URINE NEGATIVE (NEGATIVE); NITRITE,URINE NEGATIVE (NEGATIVE); PROTEIN,URINE NEGATIVE (NEGATIVE); URINE SPECIFIC GRAVITY 1.009; UROBILINOGEN,URINE NEGATIVE mg/dL (<2.0)
[2017-02-10 15:10] LABS: ALANINE AMINOTRANSFERASE 34 U/L (9-52); ALBUMIN 3.8 g/dL (3.5-5.0); ALKALINE PHOSPHATASE 112 U/L (38-126); ANION GAP 15 (5-19); ASPARTATE AMINO TRANSFERASE 25 U/L (14-36); BILIRUBIN,DIRECT 0.4 mg/dL (0.0-0.4); BILIRUBIN,TOTAL 0.4 mg/dL (0.2-1.3); BLOOD UREA NITROGEN 42 mg/dL (7-20); CALCIUM 8.8 mg/dL (8.4-10.2); CARBON DIOXIDE 21 mmol/L (22-30); CHLORIDE 100 mmol/L (98-107); CREATINE KINASE 104 U/L (30-135); CREATININE RESULT 2.13 mg/dL (0.52-1.25); GLUCOSE 274 mg/dL (75-110); POTASSIUM 5.2 mmol/L (3.6-5.0); SODIUM 135.6 mmol/L (137-145); TOTAL PROTEIN 7.5 g/dL (6.3-8.2)
[2017-02-10 15:21] LABS: CREATINE KINASE MB 2.37 ng/mL (<4.55)
[2017-02-10 15:25] LABS: TROPONIN I < 0.012 ng/mL
--- NOTE | 2017-02-10 15:50 | RADIOLOGY REPORT (SQ) ---
EXAM DESCRIPTION: CHEST PA/LAT COMPLETED DATE/TIME: 02/10/2017 3:05 pm REASON FOR STUDY: cp COMPARISON: 08/04/2016 EXAM PARAMETERS: NUMBER OF VIEWS: two views TECHNIQUE: Digital Frontal and Lateral radiographic views of the chest acquired. RADIATION DOSE: NA LIMITATIONS: none FINDINGS: LUNGS AND PLEURA: No opacities, masses or pneumothorax. No pleural effusion. MEDIASTINUM AND HILAR STRUCTURES: No masses or contour abnormalities. HEART AND VASCULAR STRUCTURES: Heart normal size. No evidence for failure. BONES: No acute findings. HARDWARE: None in the chest. OTHER: No other significant finding. IMPRESSION: NO SIGNIFICANT RADIOGRAPHIC FINDING IN THE CHEST. TECHNICAL DOCUMENTATION: JOB ID: [id number] [employer]- All Rights Reserved
--- NOTE | 2017-02-10 17:32 | RADIOLOGY REPORT (SQ) ---
EXAM DESCRIPTION: CT HEAD WITHOUT COMPLETED DATE/TIME: 02/10/2017 5:23 pm REASON FOR STUDY: confusion COMPARISON: None. TECHNIQUE: Axial images acquired through the brain without intravenous contrast. Images reviewed wi th bone, brain and subdural windows. Images stored on PACS. All CT scanners at this facility use dose modulation, iterative reconstruction, and/or weight based d osing when appropriate to reduce radiation dose to as low as reasonably achievable (ALARA). [facility]: Dose Right [facility]: CareDose [facility]: Dose Right [facility]: Teradose 4D [facility]: Mural.ly RADIATION DOSE: 64.6mGy. LIMITATIONS: None. FINDINGS: VENTRICLES: Normal size and contour. CEREBRUM: No masses. No hemorrhage. No midline shift. Normal briggs/white matter differentiation. N o evidence for acute infarction. CEREBELLUM: No masses. No hemorrhage. No alteration of density. No evidence for acute infarction. EXTRAAXIAL SPACES: No fluid collections. No masses. ORBITS AND GLOBE: No intra- or extraconal masses. Normal contour of globe without masses. CALVARIUM: No fracture. PARANASAL SINUSES: No fluid or mucosal thickening. SOFT TISSUES: No mass or hematoma. OTHER: No other significant finding. IMPRESSION: NORMAL BRAIN CT WITHOUT CONTRAST. TECHNICAL DOCUMENTATION: JOB ID: [id number] Quality ID # [id number]: Final reports with documentation of one or more dose reduction techniques (e.g., Au tomated exposure control, adjustment of the mA and/or kV according to patient size, use of iterative reconstruction technique) 2010 [employer]- All Rights Reserved
[2017-02-10] MEDS ORDERED: LEVOFLOXACIN 500 MG/D5W RTU 100 ML IV ONE (18:20)
--- NOTE | 2017-02-10 18:31 | ER Document Report ---
ED General - General Chief Complaint: Urinary Problem Stated Complaint: BLOOD IN URINE Time Seen by Provider: 02/10/17 14:01 Mode of Arrival: Wheelchair Information source: Patient Notes: This is a 56-year-old female with a history of one kidney who presents to the emergency room with hematuria. Patient does have a history of urine infections and recently had an infection with Klebsiella. She also states she has been having some left chest wall pain intermittently. She denies any exertional chest pain or shortness of breath. She also states that she stopped confused on and off. She does take Xanax for anxiety and states she has been anxious lately so she has been taking her Xanax regularly. She denies any fever, chills , nausea vomiting. She denies any abdominal pain. She denies any diarrhea. Medical history: Morbid obesity, hypertension, chronic kidney disease, obstructive sleep apnea, coronary artery disease, UTIs. TRAVEL OUTSIDE OF THE [place] IN LAST 30 DAYS: No - HPI Onset: Last week Onset/Duration: Gradual Quality of pain: No pain Severity: None Pain Level: Denies Associated symptoms: denies: Chest pain, Fever, Shortness of breath Exacerbated by: Denies Relieved by: Denies Similar symptoms previously: Yes Recently seen / treated by doctor: Yes - Related Data Allergies/Adverse Reactions: Penicillins Allergy (Unknown, Verified 02/10/17 14:18) Past Medical History - General Information source: Patient - Social History Smoking Status: Never Smoker Cigarette use (# per day): No Chew tobacco use (# tins/day): No Frequency of alcohol use: None Drug Abuse: None Lives with: Family Family History: Reviewed & Not Pertinent Patient has suicidal ideation: No Patient has homicidal ideation: No - Past Medical History Cardiac Medical History: Reports: Hx Congestive Heart Failure, Hx Coronary Artery Disease, Hx Hypertension Denies: Hx DVT Endocrine Medical History: Reports: Hx Diabetes Mellitus Type 1, Hx Diabetes Mellitus Type 2 Renal/ Medical History: Reports: Hx End Stage Renal Disease - stage 3. Denies : Hx Peritoneal Dialysis Malignancy Medical History: Reports: Hx Renal (Kidney) Cancer - s/p right nephrectomy September, Psychiatric Medical History: Reports: Hx Depression Past Surgical History: Reports: Hx Cardiac Surgery - stents, Hx Cholecystectomy , Hx Coronary Stent - 2013, Hx Kidney (Renal Surgery) - right nephrectomy, Hx Orthopedic Surgery - Left great toe amputation - Immunizations Hx Diphtheria, Pertussis, Tetanus Vaccination: Yes Hx Pneumococcal Vaccination: 07/11/13 Review of Systems - Review of Systems Constitutional: denies: Chills, Fever EENT: No symptoms reported Cardiovascular: No symptoms reported Respiratory: No symptoms reported Gastrointestinal: See HPI Genitourinary: See HPI Female Genitourinary: No symptoms reported Skin: No symptoms reported Hematologic/Lymphatic: No symptoms reported Neurological/Psychological: See HPI Physical Exam - Vital signs Vitals: Temp Pulse Resp BP Pulse Ox 98.6 F 77 18 111/64 95 02/10/17 13:56 02/10/17 13:56 02/10/17 13:56 02/10/17 13:56 02/10/17 13:56 Notes: Physical exam: GENERAL: 56-year-old female, alert and oriented 3, no acute distress HEAD: Atraumatic, normocephalic. EYES: Pupils equal round and reactive to light, extraocular movements intact, sclera anicteric, conjunctiva are normal. ENT: TMs normal, nares patent, oropharynx clear without exudates. Moist mucous membranes. NECK: Normal range of motion, supple without lymphadenopathy or JVD. LUNGS: Breath sounds clear to auscultation bilaterally and equal. No wheezes rales or rhonchi. HEART: Regular rate and rhythm without murmurs, rubs or gallops. ABDOMEN: Soft, normoactive bowel sounds. No tenderness to palpation. No guarding, no rebound. No masses appreciated. EXTREMITIES: Normal range of motion, no pitting or edema. No clubbing or cyanosis. NEUROLOGICAL: Cranial nerves II through XII grossly intact. Normal speech, 5/5 , sensory grossly intact , patient normally ambulates with a cane. PSYCH: Normal mood, normal affect. SKIN: Warm, Dry, normal turgor, no rashes or lesions noted. Course - Re-evaluation Re-evalutation: 02/10/17 20:14 I discussed case with Dr. Lopez who knows patient well. He recommended placing the patient on antibiotics and we will see the patient in the office and he will refer her to urology. I discussed the plan with the patient and she seems comfortable with this. I have advised her to return to the emergency room if she develops any worsening symptoms of bleeding or if she develops any pain. - Vital Signs Vital signs: Temp Pulse Resp BP Pulse Ox 98.6 F 77 17 104/76 97 02/10/17 13:56 02/10/17 13:56 02/10/17 19:52 02/10/17 19:52 02/10/17 19:52 - Laboratory Result Diagrams: 02/10/17 14:34 02/10/17 14:34 Laboratory results interpreted by me: 02/10/17 02/10/17 02/10/17 14:34 14:34 14:35 WBC 11.2 H Hgb 10.7 L Hct 32.7 L MCH 26.9 L RDW 15.5 H Eosinophils % 8.3 H Absolute Eosinophils 0.9 H Sodium 135.6 L Potassium 5.2 H Carbon Dioxide 21 L BUN 42 H Creatinine 2.13 H Est GFR ( Amer) 29 L Est GFR (Non-Af Amer) 24 L Glucose 274 H Urine Glucose (UA) 50 H Urine Blood LARGE H - Diagnostic Test Radiology reviewed: Image reviewed, Reports reviewed - CT of the head shows no acute infarct - EKG Interpretation by Me Rate: Normal - EKG shows normal sinus rhythm with a ventricular rate of 81, left anterior hemiblock, poor R-wave progression, no acute ST-T wave changes, no significant change from previous EKG August 04, 2016 Rhythm: NSR Discharge - Discharge Clinical Impression: UTI Condition: Stable Disposition: HOME, SELF-CARE Instructions: Urinary Tract Infection ([facility]) Additional Instructions: Recommendations: Rest, drink plenty of fluids, take antibiotics as prescribed. Return to the emergency room for worsening confusion, will worsening pain or any concerns or getting worse. Start the antibiotics tomorrow (he was given today's dose in the ER by IV). Follow-up with Dr. LOPEZ for you this week. I did discuss your presentation with him to the emergency room. Prescriptions: Levofloxacin 250 mg PO DAILY #6 tablet Referrals: AMBAR LOPEZ MD [Primary Care Provider] - Follow up in 3-5 days
--- NOTE | 2017-02-10 19:17 | EKG REPORT ---
SEVERITY:- ABNORMAL ECG - SINUS RHYTHM LEFT VENTRICULAR HYPERTROPHY : Confirmed by: Willy Douglass MD 10-Feb-2017 19:15:46
[2017-02-11 06:58] VITALS: BP 119/80
== END 2017-02-10 20:01 | disposition home or self-care (01) ==
LOC: ER 13:42
DX: N39.0 Urinary tract infection, site not specified (principal); R39.198 Other difficulties with micturition; R31.9 Hematuria, unspecified; E66.01 Morbid (severe) obesity due to excess calories; Z79.899 Other long term (current) drug therapy; F41.9 Anxiety disorder, unspecified; R07.89 Other chest pain; I10 Essential (primary) hypertension; N18.9 Chronic kidney disease, unspecified; G47.33 Obstructive sleep apnea (adult) (pediatric); I25.10 Atherosclerotic heart disease of native coronary artery without angina pectoris
CPT/HCPCS: 93005; 99284; 96365; 36415; 87086; 82553; 82550; 85025; 80053; 81001; 84484; 83880; 71020; 70450; 93010; J1956

== ENCOUNTER 2017-03-23 16:01 | Emergency (ER) | payer MEDICARE, MEDICAID ==
--- NOTE | 2017-03-23 16:31 | ER Document Report ---
ED Medical Screen (RME) - General Chief Complaint: Dizziness Stated Complaint: FALL/HEAD PAIN Time Seen by Provider: 03/23/17 16:29 Mode of Arrival: Ambulatory Information source: Patient TRAVEL OUTSIDE OF THE [place] IN LAST 30 DAYS: No - HPI Patient complains to provider of: head trauma Onset: Other - pt states she fell ikn tub 2 days ago and hit her head -- unsure as to LOC. Also, not been feeling well lately - Related Data Allergies/Adverse Reactions: Penicillins Allergy (Unknown, Verified 03/23/17 16:12) Past Medical History - Social History Frequency of alcohol use: None Drug Abuse: None - Past Medical History Cardiac Medical History: Reports: Hx Congestive Heart Failure, Hx Coronary Artery Disease, Hx Hypertension Denies: Hx DVT Endocrine Medical History: Reports: Hx Diabetes Mellitus Type 1, Hx Diabetes Mellitus Type 2 Renal/ Medical History: Reports: Hx End Stage Renal Disease - stage 3. Denies : Hx Peritoneal Dialysis Malignancy Medical History: Reports: Hx Renal (Kidney) Cancer - s/p right nephrectomy September, Psychiatric Medical History: Reports: Hx Depression Past Surgical History: Reports: Hx Cardiac Surgery - stents, Hx Cholecystectomy , Hx Coronary Stent - 2013, Hx Kidney (Renal Surgery) - right nephrectomy, Hx Orthopedic Surgery - Left great toe amputation - Immunizations Hx Diphtheria, Pertussis, Tetanus Vaccination: Yes Physical Exam - Vital signs Vitals: Temp Pulse Resp BP Pulse Ox 97.9 F 78 16 140/82 H 93 03/23/17 16:12 03/23/17 16:12 03/23/17 16:12 03/23/17 16:12 03/23/17 16:12 Course - Vital Signs Vital signs: Temp Pulse Resp BP Pulse Ox 97.9 F 78 16 140/82 H 93 03/23/17 16:12 03/23/17 16:12 03/23/17 16:12 03/23/17 16:12 03/23/17 16:12
--- NOTE | 2017-03-23 17:16 | RADIOLOGY REPORT (SQ) ---
EXAM DESCRIPTION: CT HEAD WITHOUT COMPLETED DATE/TIME: 03/23/2017 5:04 pm REASON FOR STUDY: trauma COMPARISON: 02/10/2017 TECHNIQUE: Axial images acquired through the brain without intravenous contrast. Images reviewed wi th bone, brain and subdural windows. Images stored on PACS. All CT scanners at this facility use dose modulation, iterative reconstruction, and/or weight based d osing when appropriate to reduce radiation dose to as low as reasonably achievable (ALARA). [facility]: Dose Right [facility]: CareDose [facility]: Dose Right [facility]: Teradose 4D [facility]: [employer] RADIATION DOSE: Up-to-date CT equipment and radiation dose reduction techniques were employed. CTDIv ol: 64.6 mGy. DLP: 1163 mGy-cm. mGy. LIMITATIONS: None. FINDINGS: VENTRICLES: Normal size and contour. CEREBRUM: No masses. No hemorrhage. No midline shift. No evidence for acute infarction. Normal gra y/white matter differentiation. No areas of low density in the white matter. CEREBELLUM: No masses. No hemorrhage. No alteration of density. No evidence for acute infarction. EXTRAAXIAL SPACES: No fluid collections. No masses. ORBITS AND GLOBE: No intra- or extraconal masses. Normal contour of globe without masses. CALVARIUM: No fracture. PARANASAL SINUSES: No fluid or mucosal thickening. SOFT TISSUES: No mass or hematoma. OTHER: No other significant finding. IMPRESSION: NORMAL BRAIN CT WITHOUT CONTRAST. COMMENT: Quality ID # [id number]: Final reports with documentation of one or more dose reduction techniques (e.g., Automated exposure control, adjustment of the mA and/or kV according to patient size, use of iterative reconstruction technique) TECHNICAL DOCUMENTATION: JOB ID: [id number] All Rights Reserved
[2017-03-23 17:29] LABS: APPEARANCE,URINE SLIGHTLY-CLOUDY; BILIRUBIN,URINE NEGATIVE (NEGATIVE); GLUCOSE, URINE >=500 mg/dL (NEGATIVE); KETONES,URINE NEGATIVE (NEGATIVE); LEUKOCYTE ESTERASE,URINE NEGATIVE (NEGATIVE); NITRITE,URINE NEGATIVE (NEGATIVE); PROTEIN,URINE 30 mg/dL (NEGATIVE); URINE SPECIFIC GRAVITY 1.017; UROBILINOGEN,URINE NEGATIVE mg/dL (<2.0)
[2017-03-23 17:35] LABS: ABSOLUTE BASOPHILS # (AUTO) 0.1 10^3/uL (0.0-0.2); ABSOLUTE EOSINOPHILS # (AUTO) 0.5 10^3/uL (0.0-0.6); ABSOLUTE LYMPHOCYTES (AUTO) 3.2 10^3/uL (0.5-4.7); ABSOLUTE MONOCYTES (AUTO) 0.6 10^3/uL (0.1-1.4); ABSOLUTE NEUT (AUTO) 4.9 10^3/uL (1.7-8.2); ALANINE AMINOTRANSFERASE 31 U/L (9-52); ALBUMIN 3.7 g/dL (3.5-5.0); ALKALINE PHOSPHATASE 99 U/L (38-126); ANION GAP 14 (5-19); ASPARTATE AMINO TRANSFERASE 32 U/L (14-36); BASOPHILS % (AUTO) 0.9 % (0-2); BILIRUBIN,DIRECT 0.3 mg/dL (0.0-0.4); BILIRUBIN,TOTAL 0.3 mg/dL (0.2-1.3); BLOOD UREA NITROGEN 24 mg/dL (7-20); CALCIUM 8.9 mg/dL (8.4-10.2); CARBON DIOXIDE 26 mmol/L (22-30); CHLORIDE 94 mmol/L (98-107); CREATININE RESULT 1.43 mg/dL (0.52-1.25); EOSINOPHILS % (AUTO) 5.3 % (0-6); GLUCOSE 296 mg/dL (75-110); HEMATOCRIT 34.6 % (36.0-47.0); HEMOGLOBIN 11.6 g/dL (12.0-15.5); HGB HCT DIFFERENCE 0.2; LYMPHOCYTES % (AUTO) 34.8 % (13-45); MEAN CORPUSCULAR HEMOGLOBIN 27.6 pg (27.0-33.4); MEAN CORPUSCULAR HGB CONC 33.4 g/dL (32.0-36.0); MEAN CORPUSCULAR VOLUME 83 fl (80-97); MONOCYTES % (AUTO) 6.2 % (3-13); POTASSIUM 4.3 mmol/L (3.6-5.0); RED BLOOD COUNT 4.19 10^6/uL (3.72-5.28); RED CELL DISTRIBUTION WIDTH 15.9 % (11.5-14.0); SEGMENTED NEUTROPHILS % (AUTO) 52.8 % (42-78); SODIUM 134.3 mmol/L (137-145); TOTAL PROTEIN 7.4 g/dL (6.3-8.2); WHITE BLOOD COUNT 9.2 10^3/uL (4.0-10.5)
[2017-03-23] MEDS ORDERED: METOCLOPRAMIDE HCL INJ/PF 10 MG/2 ML SDV IV ONE (19:01)
[2017-03-23] MEDS ORDERED: NORMAL SALINE 1000 ML 500 ML IV ONE (19:02)
--- NOTE | 2017-03-23 19:07 | ER Document Report ---
ED General - General Chief Complaint: Dizziness Stated Complaint: FALL/HEAD PAIN Time Seen by Provider: 03/23/17 16:29 Mode of Arrival: Ambulatory Notes: Patient is a 56-year-old female with a past medical history of chronic lightheadedness, deconditioning, ambulatory difficulties states that she became lightheaded when going from a sitting to standing position today, missing her walker and falling forward striking her head on a tub. States she is uncertain of that this caused her to lose consciousness. She states this is very similar to prior episodes of lightheadedness that she has had in the past and she is currently followed with her primary care doctor regarding this concern. At time of my assessment patient states that she overall feels that her baseline denies any chest pain, shortness of breath, nausea, vomiting, abdominal pain or diarrhea. No new medication changes. She is uncertain of what triggers her episodes although she notes typically it is positional changes. Nothing seems to improve the frequency of her episodes. She has not seen a primary care doctor regarding today's concerns. TRAVEL OUTSIDE OF THE [place] IN LAST 30 DAYS: No - Related Data Allergies/Adverse Reactions: Penicillins Allergy (Unknown, Verified 03/23/17 16:12) Past Medical History - General Information source: Patient - Social History Smoking Status: Former Smoker Frequency of alcohol use: None Drug Abuse: None Lives with: Family Family History: Reviewed & Not Pertinent - Past Medical History Cardiac Medical History: Reports: Hx Congestive Heart Failure, Hx Coronary Artery Disease, Hx Hypertension Denies: Hx DVT Endocrine Medical History: Reports: Hx Diabetes Mellitus Type 1, Hx Diabetes Mellitus Type 2 Renal/ Medical History: Reports: Hx End Stage Renal Disease - stage 3. Denies : Hx Peritoneal Dialysis Malignancy Medical History: Reports: Hx Renal (Kidney) Cancer - s/p right nephrectomy September, Psychiatric Medical History: Reports: Hx Depression Past Surgical History: Reports: Hx Cardiac Surgery - stents, Hx Cholecystectomy , Hx Coronary Stent - 2013, Hx Kidney (Renal Surgery) - right nephrectomy, Hx Orthopedic Surgery - Left great toe amputation - Immunizations Hx Diphtheria, Pertussis, Tetanus Vaccination: Yes Hx Pneumococcal Vaccination: 07/11/13 Review of Systems - Review of Systems Notes: Constitutional: Negative for fever. HENT: Negative for sore throat. Eyes: Negative for visual changes. Cardiovascular: Negative for chest pain. Respiratory: Negative for shortness of breath. Gastrointestinal: Negative for abdominal pain, vomiting or diarrhea. Genitourinary: Negative for dysuria. Musculoskeletal: Negative for back pain. Skin: Negative for rash. Neurological: Positive for headache 10 point ROS negative except as marked above and in HPI. Physical Exam - Vital signs Vitals: Temp Pulse Resp BP Pulse Ox 97.9 F 78 16 140/82 H 93 03/23/17 16:12 03/23/17 16:12 03/23/17 16:12 03/23/17 16:12 03/23/17 16:12 Interpretation: Normal Notes: PHYSICAL EXAMINATION: GENERAL: Well-appearing, well-nourished and in no acute distress. HEAD: Atraumatic, normocephalic. EYES: Pupils equal round and reactive to light, extraocular movements intact, sclera anicteric, conjunctiva are normal. ENT: nares patent, oropharynx clear without exudates. Moist mucous membranes. NECK: Normal range of motion, supple without lymphadenopathy LUNGS: Breath sounds clear to auscultation bilaterally and equal. No wheezes rales or rhonchi. HEART: Regular rate and rhythm without murmurs ABDOMEN: Soft, nontender, normoactive bowel sounds. No guarding, no rebound. No masses appreciated. EXTREMITIES: Normal range of motion, no pitting or edema. No cyanosis. NEUROLOGICAL: No focal neurological deficits. Moves all extremities spontaneously and on command. PSYCH: Normal mood, normal affect. SKIN: Warm, Dry, normal turgor, no rashes or lesions noted. Course - Re-evaluation Re-evalutation: 03/23/17 19:05 Patient presents after a mechanical fall when she became lightheaded when going from a sitting to standing position earlier today. Patient reports a chronic history of similar presentations for the at least the last 2 years and nothing is new or different today. She complains of mild left-sided posterior scalp pain on presentation but denies any other acute complaints. A CT of her head was obtained in triage, although patient is noted to be [place] head CT criteria negative. That head CT is normal. The remainder of her labs are overall unremarkable, actually showing improvement her baseline chronic kidney disease. Her urine is mildly concentrated. I discussed with the patient results of her labs and imaging. She has been able to ambulate. No difficulty tolerating oral intake. Given her history of CHF, only a very small fluid bolus was administered. I do not suspect any acute life-threatening pathology as the etiology of her presentation today. Her clinical history, vitals and exam are not consistent with an acute pulmonary embolus, ACS, occult infection, or acute kidney injury. At this time will discharge with return precautions and follow-up recommendations. Verbal discharge instructions given a the bedside and opportunity for questions given. Medication warnings reviewed. Patient is in agreement with this plan and has verbalized understanding of return precautions and the need for primary care follow-up in the next 24-72 hours. - Vital Signs Vital signs: Temp Pulse Resp BP Pulse Ox 97.9 F 78 22 H 139/86 H 94 03/23/17 16:12 03/23/17 16:12 03/23/17 20:01 03/23/17 20:01 03/23/17 20:01 - Laboratory Result Diagrams: 03/23/17 16:46 03/23/17 16:46 Laboratory results interpreted by me: 03/23/17 03/23/17 03/23/17 16:46 16:46 16:46 Hgb 11.6 L Hct 34.6 L RDW 15.9 H Sodium 134.3 L Chloride 94 L BUN 24 H Creatinine 1.43 H Est GFR ( Amer) 46 L Est GFR (Non-Af Amer) 38 L Glucose 296 H Urine Protein 30 H Urine Glucose (UA) >=500 H - EKG Interpretation by Me Additional EKG results interpreted by me: 03/23/17 19:06 Normal sinus rhythm. First-degree AV block. LVH is present. Unchanged from prior. Rate is 74. QTC is 449. Discharge - Discharge Clinical Impression: Dehydration, Dizzy Fall Qualifiers: Encounter type: initial encounter Qualified Code(s): W19.XXXA - Unspecified fall, initial encounter Head trauma Qualifiers: Encounter type: initial encounter Qualified Code(s): S09.90XA - Unspecified injury of head, initial encounter Condition: Stable Disposition: HOME, SELF-CARE Additional Instructions: You have been seen in the Emergency Department (ED) today following a fall. Your workup today did not reveal any injuries that require you to stay in the hospital. You can expect, though, to be stiff and sore for the next several days. You may take Tylenol as needed for pain. You can apply a hot pack or electric heating pad to the sore areas. You can also use topical "Aspercreme with lidocaine" to sore areas as needed. Your kidney function is actually improved from your last visit. Please be sure to keep hydrated as your labs do show mild dehydration. Please follow up with your primary care doctor as soon as possible regarding today's ED visit and your recent accident. Call your doctor or return to the ED if you develop a sudden or severe headache , confusion, slurred speech, facial droop, weakness or numbness in any arm or leg, extreme fatigue, vomiting more than two times, severe abdominal pain, or other symptoms that concern you. Referrals: AMBAR LOPEZ MD [Primary Care Provider] - Follow up as needed
[2017-03-23 20:04] VITALS: BP 139/86
--- NOTE | 2017-03-23 22:48 | EKG REPORT ---
SEVERITY:- ABNORMAL ECG - SINUS RHYTHM FIRST DEGREE AV BLOCK LEFT VENTRICULAR HYPERTROPHY : Confirmed by: Andreas Leach 23-Mar-2017 22:47:32
== END 2017-03-23 20:05 | disposition home or self-care (01) ==
LOC: ER 16:01
DX: S09.90XA Unspecified injury of head, initial encounter (principal); E86.0 Dehydration; R42 Dizziness and giddiness; R51 Headache; Z87.891 Personal history of nicotine dependence; W19.XXXA Unspecified fall, initial encounter
CPT/HCPCS: 93005; 99284; 96374; 36415; 85025; 80053; 81001; 84484; 70450; 93010; J2765

== ENCOUNTER 2017-04-05 13:45 | Emergency (ER) | payer MEDICARE, MEDICAID ==
--- NOTE | 2017-04-05 15:09 | ER Document Report ---
ED Neck/Back Problem - General Chief Complaint: Back Pain Stated Complaint: BACK PAIN Time Seen by Provider: 04/05/17 15:08 Notes: Patient came to this hospital today because she thought she had an MRI of her back scheduled, but found that it had been missed scheduled and she was not able to get the MRI. Her doctor, Dr. Nye, had ordered the MRI. Patient says that they have rescheduled her MRI. However, she felt that she wanted to come to the emergency department to be checked for several other different problems. Patient says that she has renal insufficiency and sees Dr. Hebert and saw her about 8 days ago and her blood pressure in her office that day was 60/45, although it came on up to 90s systolic and she was discharged home. Patient today is also complaining of a headache for the past couple of days, since Tuesday. Says that she had vomiting once on Tuesday and diarrhea twice on Tuesday but no bowel movement since then. Also feeling dizzy and smothering the past 2 days. Denies any abdominal pain. Has noted some burning with urination and that her urine is darker than normal. Has not had a cough or cold or chest congestion. Has not had any fever. Patient says that she lost her balance and fell and hit the back of her head about 2 weeks ago. PMH: Right kidney removed for cancer. Cholecystectomy stage III renal insufficiency. Hypertension. IDDM, cardiac stents, CHF, anemia TRAVEL OUTSIDE OF THE [place] IN LAST 30 DAYS: No - Related Data Allergies/Adverse Reactions: Penicillins Allergy (Unknown, Verified 04/05/17 14:01) Past Medical History - Social History Smoking Status: Unknown if Ever Smoked Cigarette use (# per day): No Family History: Reviewed & Not Pertinent Patient has suicidal ideation: No Patient has homicidal ideation: No - Past Medical History Cardiac Medical History: Reports: Hx Congestive Heart Failure, Hx Coronary Artery Disease, Hx Hypertension Endocrine Medical History: Reports: Hx Diabetes Mellitus Type 1, Hx Diabetes Mellitus Type 2 Renal/ Medical History: Reports: Hx End Stage Renal Disease - stage 3 Malignancy Medical History: Reports: Hx Renal (Kidney) Cancer - s/p right nephrectomy September, Psychiatric Medical History: Reports: Hx Depression Past Surgical History: Reports: Hx Cardiac Surgery - stents, Hx Cholecystectomy , Hx Coronary Stent - 2013, Hx Kidney (Renal Surgery) - right nephrectomy, Hx Orthopedic Surgery - Left great toe amputation - Immunizations Hx Diphtheria, Pertussis, Tetanus Vaccination: Yes Hx Pneumococcal Vaccination: 07/11/13 Review of Systems - Review of Systems Notes: REVIEW OF SYSTEMS: CONSTITUTIONAL : Denies fever. EENT: Denies eye, ear, nose or mouth or throat pain or other symptoms. CARDIOVASCULAR: Denies chest pain. RESPIRATORY: Denies cough, chest congestion, or shortness of breath. GASTROINTESTINAL: See HPI. GENITOURINARY: See HPI. Has not had blood in her urine.. MUSCULOSKELETAL: Denies back or neck pain. Denies joint pain or swelling. SKIN: Denies rash or skin lesions. NEUROLOGICAL: Denies LOC or altered mental status. Denies headache. Denies sensory loss or motor deficits. ALL OTHER SYSTEMS REVIEWED AND NEGATIVE. Physical Exam - Vital signs Vitals: Temp Pulse Resp BP Pulse Ox 97.7 F 107 H 18 148/98 H 93 04/05/17 14:01 04/05/17 14:01 04/05/17 14:01 04/05/17 14:01 04/05/17 14:01 Interpretation: Normal - Notes Notes: PHYSICAL EXAMINATION: GENERAL: Well-appearing, in no acute distress. Vital signs are all essentially normal. Triage Blood pressure 148/98 and pulse rate 107. HEAD: Atraumatic, normocephalic. EYES: Pupils equal round and reactive to light, extraocular movements intact. ENT: oropharynx clear without exudates. Moist mucous membranes. NECK: Normal range of motion, supple. LUNGS: Breath sounds clear and equal bilaterally. HEART: Regular rate and rhythm without murmurs. ABDOMEN: Soft, nontender. No guarding or rebound. BACK: No tenderness throughout entire back. EXTREMITIES: Normal range of motion without pain. NEUROLOGICAL: Normal speech, normal gait, but uses a walker. Normal sensory, motor, and reflex exams. Awake, alert, and oriented x3. Cranial nerves normal. PSYCH: Normal mood, normal affect. SKIN: Warm, dry. Patient has isolated small 1 cm lesions of various ages on her face. They appear to me to be impetiginous lesions, some of them have crusted over and actually almost healed while she also has a couple fresh- looking lesions. I am going to try her on a course of antibiotics. I do not think this looks like MRSA and think it will most likely be strep or staph that sensitive to cephalosporin. I am attempting a culture, but not sure if I got enough of the specimen to check. Course - Vital Signs Vital signs: Temp Pulse Resp BP Pulse Ox 98.0 F 90 20 135/75 H 98 04/05/17 19:55 04/05/17 19:55 04/05/17 19:55 04/05/17 19:55 04/05/17 19:55 - Laboratory Result Diagrams: 04/05/17 15:22 04/05/17 15:22 Laboratory results interpreted by me: 04/05/17 04/05/17 04/05/17 15:22 15:22 17:20 WBC 12.0 H RDW 15.4 H Eosinophils % 6.9 H Absolute Eosinophils 0.8 H Sodium 133.1 L Chloride 94 L BUN 24 H Creatinine 1.59 H Est GFR ( Amer) 41 L Est GFR (Non-Af Amer) 34 L Glucose 419 H* Alkaline Phosphatase 129 H Urine Glucose (UA) >=500 H Ur Leukocyte Esterase TRACE H - Diagnostic Test Radiology reviewed: Image reviewed, Reports reviewed - CT of the head is normal. - EKG Interpretation by Me EKG shows normal: Sinus rhythm Rate: Normal Rhythm: NSR - At 99. Discharge - Discharge Clinical Impression: Impetigo, Headache, Vomiting Condition: Stable Disposition: HOME, SELF-CARE Additional Instructions: HEADACHE: The physician does not feel that the headache you are experiencing has a serious underlying cause. Most headaches are due to emotional stress, with resultant muscle tension (tension headache). Occasionally, headaches are secondary to changes in the blood vessels of the scalp (vascular headache and migraine headache). Sometimes, a headache is the first symptom of another developing illness, such as a viral infection. You have no evidence of stroke, bleeding, meningitis, or other serious cause of your headache. The treatment of headaches varies with the severity and cause of the pain. Not all headaches need pain shots. In fact, there is evidence that using narcotics for headaches may make them worse in the long run. The physician will determine the therapy that's in your best interest. If you develop a fever, if the headache is different from any you've previously experienced, or if the headache progressively worsens, then call your physician at once or go to the emergency room. ANTINAUSEA MEDICATION: You have been given a medication to suppress nausea and vomiting. This type of medication can be given as a shot, pill, or suppository. It will usually last for many hours. Pills and shots usually last six to eight hours, suppositories last about 12 hours. For the typical illness, only one or two doses of the medication may be necessary. Mild lightheadedness may occur. This type of medicine can cause drowsiness. Do not drive or operate dangerous machinery while under its influence. Do not mix with alcohol. See your doctor at once if you have muscle spasms or tightness, or uncontrollable motions (particularly of the neck, mouth, or jaw). Persistent vomiting or severe lightheadedness should also be evaluated by the physician. ORAL NARCOTIC MEDICATION: You have been given a prescription for pain control. This medication is a narcotic. It's best taken with food, as nausea can result if taken on an empty stomach. Don't operate machinery or drive within six hours of taking this medication. Do not combine this medicine with alcohol, or with any medication which can cause sedation (such as cold tablets or sleeping pills) unless you get permission from the physician. Narcotics tend to cause constipation. If possible, drink plenty of fluids and eat a diet high in fiber and fruits. Impetigo You have a skin infection called impetigo. This infection is caused by germs growing between the skin layers. It spreads easily and is quite contagious. The usual treatment is with oral antibiotics, along with washing the sores and application of an antibiotic ointment. There's a new prescription antibiotic ointment which may allow some cases of impetigo to be treated without pills. Healing takes about a week. All involved areas should recover with no scarring. If there is significant worsening, or if new symptoms (such as dark urine, fever, chills, or red streaks) arise, call the doctor or return for re- examination. FOLLOW-UP CARE: If you have been referred to a physician for follow-up care, call the physician s office for an appointment as you were instructed or within the next two days. If you experience worsening or a significant change in your symptoms, notify the physician immediately or return to the Emergency Department at any time for re-evaluation. Prescriptions: Cephalexin Monohydrate [Keflex 500 mg Capsule] 500 mg PO Q8H 20 Days capsule Oxycodone HCl/Acetaminophen [Percocet 5-325 mg Tablet] 1 - 2 tab PO Q4H PRN #15 tablet PRN Reason: Promethazine HCl [Phenergan 25 mg Tablet] 1 - 2 tab PO Q6H PRN #15 tablet PRN Reason: Referrals: AMBAR NYE MD [Primary Care Provider] - Follow up as needed
[2017-04-05 15:37] LABS: ABSOLUTE BASOPHILS # (AUTO) 0.1 10^3/uL (0.0-0.2); ABSOLUTE EOSINOPHILS # (AUTO) 0.8 10^3/uL (0.0-0.6); ABSOLUTE MONOCYTES (AUTO) 0.5 10^3/uL (0.1-1.4); ABSOLUTE NEUT (AUTO) 7.5 10^3/uL (1.7-8.2); BASOPHILS % (AUTO) 0.7 % (0-2); EOSINOPHILS % (AUTO) 6.9 % (0-6); HEMATOCRIT 36.7 % (36.0-47.0); HGB HCT DIFFERENCE -0.7; LYMPHOCYTES % (AUTO) 25.2 % (13-45); MEAN CORPUSCULAR HEMOGLOBIN 27.1 pg (27.0-33.4); MEAN CORPUSCULAR HGB CONC 32.7 g/dL (32.0-36.0); MEAN CORPUSCULAR VOLUME 83 fl (80-97); MONOCYTES % (AUTO) 4.6 % (3-13); RED BLOOD COUNT 4.43 10^6/uL (3.72-5.28); RED CELL DISTRIBUTION WIDTH 15.4 % (11.5-14.0); SEGMENTED NEUTROPHILS % (AUTO) 62.6 % (42-78)
[2017-04-05 15:53] LABS: ALANINE AMINOTRANSFERASE 29 U/L (9-52); ALKALINE PHOSPHATASE 129 U/L (38-126); ANION GAP 11 (5-19); ASPARTATE AMINO TRANSFERASE 29 U/L (14-36); BILIRUBIN,DIRECT 0.4 mg/dL (0.0-0.4); BILIRUBIN,TOTAL 0.5 mg/dL (0.2-1.3); BLOOD UREA NITROGEN 24 mg/dL (7-20); CALCIUM 9.6 mg/dL (8.4-10.2); CARBON DIOXIDE 28 mmol/L (22-30); CHLORIDE 94 mmol/L (98-107); CREATININE RESULT 1.59 mg/dL (0.52-1.25); POTASSIUM 4.3 mmol/L (3.6-5.0); SODIUM 133.1 mmol/L (137-145); TOTAL PROTEIN 8.1 g/dL (6.3-8.2)
[2017-04-05 16:04] LABS: GLUCOSE 419 mg/dL (75-110)
[2017-04-05 16:05] LABS: CREATINE KINASE MB 1.75 ng/mL (<4.55)
[2017-04-05 16:07] LABS: TROPONIN I < 0.012 ng/mL
--- NOTE | 2017-04-05 16:33 | RADIOLOGY REPORT (SQ) ---
EXAM DESCRIPTION: CHEST PA/LAT COMPLETED DATE/TIME: 04/05/2017 4:25 pm REASON FOR STUDY: Feels as if she is being smothered COMPARISON: 02/10/2017. EXAM PARAMETERS: NUMBER OF VIEWS: two views TECHNIQUE: Digital Frontal and Lateral radiographic views of the chest acquired. RADIATION DOSE: NA LIMITATIONS: none FINDINGS: LUNGS AND PLEURA: No opacities, masses or pneumothorax. No pleural effusion. MEDIASTINUM AND HILAR STRUCTURES: No masses or contour abnormalities. HEART AND VASCULAR STRUCTURES: Heart normal size. No evidence for failure. BONES: No acute findings. HARDWARE: None in the chest. OTHER: No other significant finding. IMPRESSION: NO SIGNIFICANT RADIOGRAPHIC FINDING IN THE CHEST. TECHNICAL DOCUMENTATION: JOB ID: [id number]- All Rights Reserved
--- NOTE | 2017-04-05 16:41 | RADIOLOGY REPORT (SQ) ---
EXAM DESCRIPTION: CT HEAD WITHOUT COMPLETED DATE/TIME: 04/05/2017 4:29 pm REASON FOR STUDY: Headache for 2 days, fell and hit head 2 weeks ago COMPARISON: 03/23/2017. TECHNIQUE: Axial images acquired through the brain without intravenous contrast. Images reviewed wi th bone, brain and subdural windows. Images stored on PACS. All CT scanners at this facility use dose modulation, iterative reconstruction, and/or weight based d osing when appropriate to reduce radiation dose to as low as reasonably achievable (ALARA). [facility]: Dose Right [facility]: CareDose [facility]: Dose Right [facility]: Teradose 4D [facility]: [employer] RADIATION DOSE: Up-to-date CT equipment and radiation dose reduction techniques were employed. CTDIv ol: 64.6 mGy. DLP: 1034 mGy-cm. mGy. LIMITATIONS: None. FINDINGS: VENTRICLES: Normal size and contour. CEREBRUM: No masses. No hemorrhage. No midline shift. No evidence for acute infarction. Normal gra y/white matter differentiation. No areas of low density in the white matter. CEREBELLUM: No masses. No hemorrhage. No alteration of density. No evidence for acute infarction. EXTRAAXIAL SPACES: No fluid collections. No masses. ORBITS AND GLOBE: No intra- or extraconal masses. Normal contour of globe without masses. CALVARIUM: No fracture. PARANASAL SINUSES: No fluid or mucosal thickening. SOFT TISSUES: No mass or hematoma. OTHER: No other significant finding. IMPRESSION: NORMAL BRAIN CT WITHOUT CONTRAST. EVIDENCE OF ACUTE STROKE: NO. COMMENT: Quality ID # [id number]: Final reports with documentation of one or more dose reduction techniques (e.g., Automated exposure control, adjustment of the mA and/or kV according to patient size, use of iterative reconstruction technique) TECHNICAL DOCUMENTATION: JOB ID: [id number]- All Rights Reserved
--- NOTE | 2017-04-05 16:44 | EKG REPORT ---
SEVERITY:- ABNORMAL ECG - SINUS RHYTHM LEFT AXIS DEVIATION LVH WITH SECONDARY REPOLARIZATION ABNORMALITY PROLONGED QT INTERVAL : Confirmed by: Randi Nagel MD 05-Apr-2017 16:44:16
[2017-04-05 17:49] LABS: APPEARANCE,URINE SLIGHTLY-CLOUDY; BILIRUBIN,URINE NEGATIVE (NEGATIVE); GLUCOSE, URINE >=500 mg/dL (NEGATIVE); KETONES,URINE NEGATIVE (NEGATIVE); LEUKOCYTE ESTERASE,URINE TRACE (NEGATIVE); NITRITE,URINE NEGATIVE (NEGATIVE); PROTEIN,URINE NEGATIVE (NEGATIVE); UROBILINOGEN,URINE NEGATIVE mg/dL (<2.0)
[2017-04-05 19:56] VITALS: BP 135/75
== END 2017-04-05 19:55 | disposition home or self-care (01) ==
LOC: ER 13:45
DX: L01.00 Impetigo, unspecified (principal); R51 Headache; R11.10 Vomiting, unspecified; R42 Dizziness and giddiness; R30.0 Dysuria; R39.89 Other symptoms and signs involving the genitourinary system; I10 Essential (primary) hypertension; E11.9 Type 2 diabetes mellitus without complications; Z85.528 Personal history of other malignant neoplasm of kidney; Z90.5 Acquired absence of kidney; Z91.81 History of falling; Z88.0 Allergy status to penicillin; Z95.5 Presence of coronary angioplasty implant and graft
CPT/HCPCS: 36415; 70450; 71020; 80053; 81001; 82553; 84484; 85025; 87070; 87075; 87205; 93005; 93010; 99284

== ENCOUNTER → 2017-04-13 | Outpatient (CLI) | payer MEDICARE, MEDICAID ==
--- NOTE | 2017-04-13 12:03 | RADIOLOGY REPORT (SQ) ---
EXAM DESCRIPTION: MRI LUMBAR SPINE WITHOUT COMPLETED DATE/TIME: 04/13/2017 10:46 am REASON FOR STUDY: INTERVERTEBRAL DISC DISORDERS WITH RADICULOPATHY, LUMBAR REGION M51.16 INTERVERTE BRAL DISC DISORDERS W RADICULOPATHY, LUMBAR COMPARISON: CT abdomen and pelvis from 08/07/2016. TECHNIQUE: Sagittal and Axial imaging includes T1, T2, STIR and gradient echo sequences. Coronal T2/ HASTE imaging. LIMITATIONS: None. FINDINGS: VISUALIZED UPPER ABDOMEN: Absent right kidney. No acute or suspicious findings detected. SEGMENTATION: No transitional anatomy. The lowest well-developed disc space is labeled L5-S1. ALIGNMENT: Anatomic. VERTEBRAE: Intact. BONE MARROW: Low signal relatively diffusely throughout the L3 vertebral body. Correlation with CT s hows sclerosis, "Ivory" appearance. DISC SIGNAL: Decreased disc signal and height at L3-4. POSTERIOR ELEMENTS: Facet arthropathy. No pars defect. HARDWARE: None in the spine. CORD AND CONUS: Normal in size and signal intensity. Conus at the appropriate level. SOFT TISSUES: No aortic aneurysm seen. No bulky retroperitoneal adenopathy or mass. No paraspinal mas s or fluid. L1-L2: No significant spinal stenosis or exit foraminal stenosis. L2-L3: No significant spinal stenosis or exit foraminal stenosis. L3-L4: Broad disc bulge mildly flattens the ventral thecal sac. Facet arthropathy is present. Resul tant mild central narrowing and minimal foraminal encroachment. L4-L5: Facet arthropathy. Slight central canal narrowing with minimal foraminal encroachment. L5-S1: Facet arthropathy without stenosis. LOWER THORACIC: Incompletely imaged. No stenosis seen. SACRUM: Visualized upper sacrum intact. OTHER: No other significant findings. IMPRESSION: 1. L3-4 disc disease. No high-grade stenosis here or at the other lumbar levels. 2. L 3 ivory vertebra appearance, chronic. The comparison CT suggests a central vertebral hemangioma, whi ch can be associated with this appearance. Osteoblastic metastatic disease is in the differential bu t felt to be less likely unless the patient has history of primary cancer. Lymphoma, Paget's disease are differential considerations. TECHNICAL DOCUMENTATION: JOB ID: [id number]- All Rights Reserved
== END ==
LOC: RAD 08:36
PROVIDERS: ATTEND Internal Medicine Geriatric Medicine
DX: M51.16 Intervertebral disc disorders with radiculopathy, lumbar region (principal)
CPT/HCPCS: 72148

== ENCOUNTER 2017-04-15 03:16 | Emergency (ER) | payer MEDICARE, MEDICAID ==
[2017-04-15 03:28] VITALS: BP 118/63
[2017-04-15] MEDS ORDERED: IBUPROFEN 600 MG TABLET PO ONE (04:14)
--- NOTE | 2017-04-15 04:20 | ER Document Report ---
ED Fall - General Chief Complaint: Fall Stated Complaint: LEFT SHOULDER PAIN Time Seen by Provider: 04/15/17 03:56 Mode of Arrival: Stretcher Information source: Patient TRAVEL OUTSIDE OF THE [place] IN LAST 30 DAYS: No - HPI Patient complains to provider of: Trip and fall Occurred: Just prior to arrival Where: Home Context: Tripped Associated symptoms: None Location of injury/pain: Head, Knee, Neck, Shoulder Quality of pain: Achy Severity: Moderate Pain Level: 4 Notes: Patient is a 56-year-old female brought to the emergency room by EMS for complaints of trip and fall, states she was getting up in the middle night to get a drink of water and lost her footing in the hallway causing her to fall, she states she hit her head quite hard but denies any loss of consciousness, states she has a severe headache, with neck pain, left shoulder pain, left knee pain, denies any vision changes, no nausea or vomiting - Related data Allergies/Adverse Reactions: Penicillins Allergy (Unknown, Verified 04/05/17 14:01) Past Medical History - General Information source: Patient - Social History Smoking Status: Unknown if Ever Smoked Family History: Reviewed & Not Pertinent Patient has suicidal ideation: No Patient has homicidal ideation: No - Past Medical History Cardiac Medical History: Reports: Hx Congestive Heart Failure, Hx Coronary Artery Disease, Hx Hypertension Denies: Hx DVT Endocrine Medical History: Reports: Hx Diabetes Mellitus Type 1, Hx Diabetes Mellitus Type 2 Renal/ Medical History: Reports: Hx End Stage Renal Disease - stage 3. Denies : Hx Peritoneal Dialysis Malignancy Medical History: Reports: Hx Renal (Kidney) Cancer - s/p right nephrectomy September, Psychiatric Medical History: Reports: Hx Depression Past Surgical History: Reports: Hx Cardiac Surgery - stents, Hx Cholecystectomy , Hx Coronary Stent - 2013, Hx Kidney (Renal Surgery) - right nephrectomy, Hx Orthopedic Surgery - Left great toe amputation - Immunizations Hx Diphtheria, Pertussis, Tetanus Vaccination: Yes Hx Pneumococcal Vaccination: 07/11/13 Review of Systems - Review of Systems Constitutional: No symptoms reported EENT: No symptoms reported Cardiovascular: No symptoms reported Respiratory: No symptoms reported Gastrointestinal: No symptoms reported Genitourinary: No symptoms reported Female Genitourinary: No symptoms reported Musculoskeletal: See HPI Skin: No symptoms reported Hematologic/Lymphatic: No symptoms reported Neurological/Psychological: No symptoms reported -: Yes All other systems reviewed and negative Physical Exam - Vital signs Vitals: Temp Pulse Resp BP Pulse Ox 97.4 F 103 H 20 118/63 94 04/15/17 03:22 04/15/17 03:22 04/15/17 03:22 04/15/17 03:22 04/15/17 03:22 Interpretation: Normal - General General appearance: Appears well, Alert - HEENT Head: Normocephalic, Atraumatic Eyes: Normal Conjunctiva: Normal Extraocular movements intact: Yes Eyelashes: Normal Pupils: PERRL Mucous membranes: Dry Pharynx: Normal Neck: Other - Tenderness to palpate in paraspinal musculature and midline over the lower cervical spine - Respiratory Respiratory status: No respiratory distress Chest status: Nontender Breath sounds: Normal Chest palpation: Normal - Cardiovascular Rhythm: Regular Heart sounds: Normal auscultation Murmur: No - Abdominal Inspection: Normal Distension: No distension Bowel sounds: Normal Tenderness: Nontender Organomegaly: No organomegaly - Back Back: Normal, Tender - Tenderness to palpation paraspinal musculature - Extremities General upper extremity: Normal color, Normal temperature General lower extremity: Normal color, Normal temperature. No: Shweta's sign Shoulder: Tender - Tenderness to palpate over the AC joint of the left shoulder , pain with range of motion testing, distal sensation and motor is intact with 2 + radial pulses and brisk capillary refill Knee: Tender - Tenderness to palpate over patella of left knee, pain with range of motion testing, distal sensation and motor is intact - Neurological Neuro grossly intact: Yes Cognition: Normal Orientation: AAOx4 [place] Coma Scale Eye Opening: Spontaneous Melody Coma Scale Verbal: Oriented Melody Coma Scale Motor: Obeys Commands [place] Coma Scale Total: 15 Speech: Normal Motor strength normal: LUE, RUE, LLE, RLE Sensory: Normal - Psychological Associated symptoms: Normal affect, Normal mood - Skin Skin Temperature: Warm Skin Moisture: Dry Skin Color: Normal Course - Re-evaluation Re-evalutation: 04/15/17 04:19 Patient is morbidly obese, as a palpate along her neck and back, as well as her shoulder and knee, she practically cries out anytime I touch her anywhere, it is very difficult to pinpoint any specific area of concern, physical exam findings are otherwise fairly unremarkable with no ecchymosis or erythema, no orozco consistent with significant trauma - Vital Signs Vital signs: Temp Pulse Resp BP Pulse Ox 97.4 F 103 H 20 118/63 94 04/15/17 03:22 04/15/17 03:22 04/15/17 03:22 04/15/17 03:22 04/15/17 03:22 Discharge - Discharge Clinical Impression: Left shoulder strain Qualifiers: Encounter type: initial encounter Qualified Code(s): S46.912A - Strain of unspecified muscle, fascia and tendon at shoulder and upper arm level, left arm , initial encounter Contusion of left knee Qualifiers: Encounter type: initial encounter Qualified Code(s): S80.02XA - Contusion of left knee, initial encounter Head injury Qualifiers: Encounter type: initial encounter Qualified Code(s): S09.90XA - Unspecified injury of head, initial encounter Cervical strain, acute Qualifiers: Encounter type: initial encounter Qualified Code(s): S16.1XXA - Strain of muscle, fascia and tendon at neck level, initial encounter Condition: Stable Disposition: HOME, SELF-CARE Instructions: Suspected Internal Knee Injury ([facility]), Contusion ([facility]), Head Injury Precautions ([facility]), Neck Injury (Cervical Strain) ([facility]), Shoulder Injury ( [facility]) Additional Instructions: Follow up with your primary care provider and an orthopedic surgeon in one to 2 days. Return to the emergency room immediately if symptoms worsen or any additional concerns. Ice and elevate the affected extremity. Limit weightbearing. Prescriptions: Ibuprofen [Motrin 600 Mg Tablet] 600 mg PO TID #30 tablet
--- NOTE | 2017-04-15 05:33 | RADIOLOGY REPORT (SQ) ---
EXAM: NONCONTRAST BRAIN CT EXAMINATION. CLINICAL INDICATION: Head injury. Fall. COMPARISON: Brain CT examination of April 05, 2017. TECHNIQUE: Using low dose helical CT technique, thin section axial images were performed through the brain without the administration of intravenous or subarachnoid contrast material. FINDINGS: Brain volume is normal. No diffuse brain swelling or brain herniation. No hydrocephalus. No subdural or epidural hematomas. No large subacute brain infarction. No parenchymal brain hemorrhage or evidence of intracranial mass lesion. Cerebral white matter is grossly normal. Caudate heads, lentiform nuclei, thalami and internal capsules are normal. Bones of the skull and skull base are normal. The middle ears and mastoid air cells are clear. The paranasal sinuses are clear. Globes and orbits appear grossly normal on this noncontrast examination. IMPRESSION: 1. Normal noncontrast brain CT examination.
--- NOTE | 2017-04-15 05:35 | RADIOLOGY REPORT (SQ) ---
EXAM: NONCONTRAST CERVICAL SPINE CT EXAMINATION. CLINICAL INDICATION: Pain. Injury. Fall. COMPARISON: None. TECHNIQUE: Using low-dose helical technique, thin section axial images were performed through the cervical spine without the administration of intravenous or subarachnoid contrast material. CT sagittal coronal reconstructions were also obtained. FINDINGS: Motion artifact and large patient body habitus greatly decreases fine detail of the examination. No fractures, spondylolisthesis or facet joint dislocation. No hemorrhage in the spinal canal. Precervical soft tissue thickness is normal. The odontoid process, preodontoid space and C1 vertebral body are intact. The occipital condyles are intact. Partially visualized bony structures of the skull base appear normal. Soft tissue structures of the neck are grossly normal on this noncontrast examination. IMPRESSION: 1. No fractures or dislocations given absence of fine detail of the examination as described above.
--- NOTE | 2017-04-15 05:36 | RADIOLOGY REPORT (SQ) ---
EXAM DESCRIPTION: SHOULDER LEFT 2 OR MORE VIEWS CLINICAL HISTORY: 56 years, Female, fall COMPARISON: None. NUMBER OF VIEWS: 2 TECHNIQUE: Routine shoulder radiographic protocol. LIMITATIONS: None. FINDINGS: Degenerative disease. No fractures or dislocations. No radiopaque soft tissue foreign bodies. The partially visualized left pulmonary apex is clear. IMPRESSION: Degenerative disease. No fractures or dislocations. 2011 [employer]- All Rights Reserved
--- NOTE | 2017-04-15 05:38 | RADIOLOGY REPORT (SQ) ---
EXAM DESCRIPTION: KNEE LEFT 4 VIEW CLINICAL HISTORY: 56 years, Female, fall COMPARISON: None. NUMBER OF VIEWS: 3 TECHNIQUE: Routine knee radiographic protocol. LIMITATIONS: None. FINDINGS: No fractures or dislocations. No radiopaque soft tissue foreign bodies or soft tissue gas. No lytic or blastic bone lesions. IMPRESSION: No fractures or dislocations. 2011 [employer]- All Rights Reserved
== END 2017-04-15 05:47 | disposition home or self-care (01) ==
LOC: ER 03:16
DX: S16.1XXA Strain of muscle, fascia and tendon at neck level, initial encounter (principal); S09.90XA Unspecified injury of head, initial encounter; S80.02XA Contusion of left knee, initial encounter; S46.912A Strain of unspecified muscle, fascia and tendon at shoulder and upper arm level, left arm, initial encounter; M25.512 Pain in left shoulder; E66.01 Morbid (severe) obesity due to excess calories; W19.XXXA Unspecified fall, initial encounter
CPT/HCPCS: 99284; 73562; 73030; 70450; 72125; A9270

== ENCOUNTER → 2017-04-15 | Outpatient (CLI) | payer MEDICARE, MEDICAID ==
--- NOTE | 2017-04-15 12:15 | RADIOLOGY REPORT (SQ) ---
EXAM DESCRIPTION: CT ABD/PELVIS NO ORAL OR IV COMPLETED DATE/TIME: 04/15/2017 9:15 am REASON FOR STUDY: GROSS HEMATURIA (R31.0) E11.65 TYPE 2 DIABETES MELLITUS WITH HYPERGLYCEMIA R31.0 GROSS HEMATURIA COMPARISON: CT abdomen pelvis 08/05/2016, 01/30/2016 TECHNIQUE: CT scan of the abdomen and pelvis performed without intravenous or oral contrast. Images reviewed with lung, soft tissue, and bone windows. Reconstructed coronal and sagittal MPR images revi ewed. All images stored on PACS. All CT scanners at this facility use dose modulation, iterative reconstruction, and/or weight based d osing when appropriate to reduce radiation dose to as low as reasonably achievable (ALARA). [facility]: Dose Right [facility]: CareDose [facility]: Dose Right [facility]: Teradose 4D [facility]: Smart Technologies RADIATION DOSE: Up-to-date CT equipment and radiation dose reduction techniques were employed. CTDIv ol: 31.6 mGy. DLP: 1908 mGy-cm.mGy. LIMITATIONS: None. FINDINGS: LOWER CHEST: No significant findings. No nodules or infiltrates. NON-CONTRASTED LIVER, SPLEEN, ADRENALS: Evaluation limited by lack of IV contrast. No identified sign ificant masses. PANCREAS: No masses. No peripancreatic inflammatory changes. GALLBLADDER: Surgically absent RIGHT KIDNEY AND URETER: Right nephrectomy LEFT KIDNEY AND URETER: No suspicious masses. Assessment limited by lack of IV contrast. No signifi cant calcifications. No hydronephrosis or hydroureter. AORTA AND RETROPERITONEUM: No aneurysm. No retroperitoneal masses or adenopathy. BOWEL AND PERITONEAL CAVITY: No obvious masses or inflammatory changes. No free fluid. Benign 1 cm c alcified nodule in mesenteric fat axial image 67, likely a focus of old fat necrosis APPENDIX: Not identified. Ileocecal valve a ascending colon contain an old right-sided abdominal her alexis which is partially cropped from the field of view of today's CT PELVIS, BLADDER, AND ABDOMINAL WALL:Normal size uterus and ovaries. No pelvic masses or adenopathy. No bladder calculi. There is a 10 cm right lateral abdominal wall defect between the right rectus muscle sheath and trans versus/oblique muscles. Herniation of mesenteric fat, small bowel, ascending colon and appendix. No bowel obstruction. These findings are best shown on axial image 54 and coronal image 49. BONES: No significant findings. OTHER: No other significant finding. IMPRESSION: Post right nephrectomy. No left sided renal or ureteral stones. No bladder stones. Non contrasted imaging of the left kidney unremarkable. Large right lateral abdominal wall hernia containing nonobstructed bowel loops COMMENT: Quality ID # [id number]: Final reports with documentation of one or more dose reduction techniques (e.g., Automated exposure control, adjustment of the mA and/or kV according to patient size, use of iterative reconstruction technique) TECHNICAL DOCUMENTATION: JOB ID: [id number] [employer]- All Rights Reserved
== END ==
LOC: RAD 07:32
PROVIDERS: ATTEND Urology
DX: R31.0 Gross hematuria (principal); R39.9 Unspecified symptoms and signs involving the genitourinary system
CPT/HCPCS: 74176; 82565; 82962

== ENCOUNTER 2017-05-25 18:40 | Inpatient (IN) | payer MEDICARE, MEDICAID ==
[2017-05-25 19:25] LABS: ABSOLUTE BASOPHILS # (AUTO) 0.1 10^3/uL (0.0-0.2); ABSOLUTE EOSINOPHILS # (AUTO) 0.2 10^3/uL (0.0-0.6); ABSOLUTE LYMPHOCYTES (AUTO) 2.5 10^3/uL (0.5-4.7); ABSOLUTE MONOCYTES (AUTO) 0.6 10^3/uL (0.1-1.4); ABSOLUTE NEUT (AUTO) 13.2 10^3/uL (1.7-8.2); BASOPHILS % (AUTO) 0.6 % (0-2); HEMATOCRIT 38.3 % (36.0-47.0); HEMOGLOBIN 12.6 g/dL (12.0-15.5); HGB HCT DIFFERENCE -0.5; LYMPHOCYTES % (AUTO) 15.4 % (13-45); MEAN CORPUSCULAR HEMOGLOBIN 27.1 pg (27.0-33.4); MEAN CORPUSCULAR HGB CONC 32.9 g/dL (32.0-36.0); MEAN CORPUSCULAR VOLUME 82 fl (80-97); MONOCYTES % (AUTO) 3.6 % (3-13); RED BLOOD COUNT 4.66 10^6/uL (3.72-5.28); RED CELL DISTRIBUTION WIDTH 14.5 % (11.5-14.0); SEGMENTED NEUTROPHILS % (AUTO) 79.4 % (42-78); WHITE BLOOD COUNT 16.6 10^3/uL (4.0-10.5)
[2017-05-25 19:40] LABS: ALANINE AMINOTRANSFERASE 32 U/L (9-52); ALBUMIN 4.1 g/dL (3.5-5.0); ALKALINE PHOSPHATASE 142 U/L (38-126); ANION GAP 16 (5-19); ASPARTATE AMINO TRANSFERASE 37 U/L (14-36); BILIRUBIN,DIRECT 0.4 mg/dL (0.0-0.4); BILIRUBIN,TOTAL 0.4 mg/dL (0.2-1.3); BLOOD UREA NITROGEN 28 mg/dL (7-20); CALCIUM 9.5 mg/dL (8.4-10.2); CARBON DIOXIDE 24 mmol/L (22-30); CHLORIDE 96 mmol/L (98-107); CREATININE RESULT 1.36 mg/dL (0.52-1.25); GLUCOSE 315 mg/dL (75-110); LIPASE 113.1 U/L (23-300); POTASSIUM 5.2 mmol/L (3.6-5.0); SODIUM 136.4 mmol/L (137-145); TOTAL PROTEIN 8.1 g/dL (6.3-8.2)
[2017-05-25 19:51] LABS: AMORPHOUS SEDIMENT,URINE TRACE /HPF; APPEARANCE,URINE CLOUDY; BILIRUBIN,URINE NEGATIVE (NEGATIVE); GLUCOSE, URINE >=500 mg/dL (NEGATIVE); KETONES,URINE NEGATIVE (NEGATIVE); LEUKOCYTE ESTERASE,URINE LARGE (NEGATIVE); NITRITE,URINE NEGATIVE (NEGATIVE); PROTEIN,URINE >=500 mg/dL (NEGATIVE); URINE SPECIFIC GRAVITY 1.012; UROBILINOGEN,URINE NEGATIVE mg/dL (<2.0)
[2017-05-25] MEDS ORDERED: HYDROMORPHONE HCL INJ/PF 2 MG/ML AMPULE IV ONE ×2 (20:15→21:56)
[2017-05-25] MEDS ORDERED: NORMAL SALINE 1000 ML 1,000 ML IV ONE (20:19)
[2017-05-25] MEDS ORDERED: ONDANSETRON HCL INJ/PF 4 MG/2 ML SDV IV ONE (20:19)
[2017-05-25] MEDS ORDERED: LEVOFLOXACIN 500 MG/D5W RTU 500 MG/100 ML RTUPB IV ONE (20:19)
--- NOTE | 2017-05-25 20:37 | ER Document Report ---
ED GI/ - General Chief Complaint: Flank Pain Stated Complaint: VOMITING Time Seen by Provider: 05/25/17 19:51 Notes: Patient is a 56 year old female that comes to the ED by EMS for chief complaint of left flank pain, general abdominal pain, vomiting, and diarrhea. She has vomited x7, has had a few loose stools, denies hematemasis or bloody stools. She denies fever. She reports mild hematuria. She denies chest pain, shortness of breath. She does have a history of kidney stones and also a right nephrectomy (years ago for renal cancer). Denies other cancer history. PMH diabetes, HTN, cholecystectomy, cardiac stent. TRAVEL OUTSIDE OF THE [place] IN LAST 30 DAYS: No - Related Data Allergies/Adverse Reactions: Penicillins Allergy (Unknown, Verified 05/25/17 18:49) Past Medical History - General Information source: Patient - Social History Smoking Status: Former Smoker Frequency of alcohol use: None Drug Abuse: None Lives with: Family Family History: Reviewed & Not Pertinent Patient has suicidal ideation: No Patient has homicidal ideation: No - Past Medical History Cardiac Medical History: Reports: Hx Congestive Heart Failure, Hx Coronary Artery Disease, Hx Hypertension Denies: Hx DVT Endocrine Medical History: Reports: Hx Diabetes Mellitus Type 1, Hx Diabetes Mellitus Type 2 Renal/ Medical History: Reports: Hx End Stage Renal Disease - stage 3. Denies : Hx Peritoneal Dialysis Malignancy Medical History: Reports: Hx Renal (Kidney) Cancer - s/p right nephrectomy September, Psychiatric Medical History: Reports: Hx Depression Past Surgical History: Reports: Hx Cardiac Surgery - stents, Hx Cholecystectomy , Hx Coronary Stent - 2013, Hx Kidney (Renal Surgery) - right nephrectomy, Hx Orthopedic Surgery - Left great toe amputation - Immunizations Hx Diphtheria, Pertussis, Tetanus Vaccination: Yes Hx Pneumococcal Vaccination: 07/11/13 Review of Systems - Review of Systems Constitutional: No symptoms reported EENT: No symptoms reported Cardiovascular: No symptoms reported Respiratory: No symptoms reported Gastrointestinal: See HPI Genitourinary: See HPI Female Genitourinary: No symptoms reported Musculoskeletal: No symptoms reported Skin: No symptoms reported Hematologic/Lymphatic: No symptoms reported Neurological/Psychological: No symptoms reported Physical Exam - Vital signs Vitals: Temp Pulse Resp BP Pulse Ox 98.2 F 110 H 22 H 199/116 H 95 05/25/17 18:49 05/25/17 18:49 11/15/17 18:49 05/25/17 18:49 05/25/17 18:49 Interpretation: Normal - General General appearance: Alert, Anxious In distress: Mild - HEENT Head: Normocephalic, Atraumatic Eyes: Normal Conjunctiva: Normal Extraocular movements intact: Yes Eyelashes: Normal Pupils: PERRL Nasal: Normal Mouth/Lips: Normal Mucous membranes: Normal Pharynx: Normal Neck: Normal - Respiratory Respiratory status: No respiratory distress Chest status: Nontender Breath sounds: Normal. No: Decreased air movement, Wheezing Chest palpation: Normal - Cardiovascular Rhythm: Regular, Tachycardia Heart sounds: Normal auscultation, S1 appreciated, S2 appreciated Murmur: No - Abdominal Inspection: Normal Distension: No distension Bowel sounds: Normal Tenderness: Tender - Mild generalized tenderness. No: McBurney's point, Kaiser' s sign, Guarding Organomegaly: No organomegaly - Back Back: Tender - Left CVA tenderness - Extremities General upper extremity: Normal inspection, Nontender, Normal color, Normal ROM , Normal temperature General lower extremity: Normal inspection, Nontender, Normal color, Normal ROM , Normal temperature, Normal weight bearing. No: Shweta's sign - Neurological Neuro grossly intact: Yes Cognition: Normal Orientation: AAOx4 [place] Coma Scale Eye Opening: Spontaneous Melody Coma Scale Verbal: Oriented [place] Coma Scale Motor: Obeys Commands [place] Coma Scale Total: 15 Speech: Normal Cranial nerves: Normal Cerebellar coordination: Normal Motor strength normal: LUE, RUE, LLE, RLE Additional motor exam normals: Equal warehouse lead Sensory: Normal - Psychological Associated symptoms: Normal affect, Normal mood - Skin Skin Temperature: Warm Skin Moisture: Dry Skin Color: Normal Course - Re-evaluation Re-evalutation: Patient tachycardic, has mild generalized abdominal pain, has left CVA tenderness. No fever. Leukocytosis at 16.6 with elevation of neutrophils but no bandemia. No hypotension. Chemistry shows renal functioning with creatinine of 1.32, this is actually improved compared to prior. Urinalysis consistent with infection with large leukocyte esterase and many white blood cells. Urine culture placed. Giving antibiotics. CAT scan performed, shows hydronephrosis with no visualized stones or clear obstructive pathology. Radiologist reads questionable recent stone passed or non-radiopaque stone. Discussed with Dr. Chand. Presentation is more consistent with pyelonephritis with no obstructing visualized stone. He recommends consultation with nephrology with potential admission here. Spoke with Dr. Hebert, patient's personal die cutter operator, because of good renal functioning she does recommend that patient can be monitored carefully here with treatment of pyelonephritis but if patient worsens she will need to be transferred. We do not have urology on-call. I discussed with patient, she requests to stay here. Discussed with Dr. Nye, patient will be admitted to telemetry full admission. - Vital Signs Vital signs: Temp Pulse Resp BP Pulse Ox 97.9 F 116 H 16 136/90 H 95 05/26/17 03:37 05/26/17 03:37 05/26/17 03:37 05/26/17 03:37 05/26/17 03:37 - Laboratory Result Diagrams: 05/25/17 19:05 05/25/17 19:05 Laboratory results interpreted by me: 05/25/17 05/25/17 05/25/17 19:05 19:05 19:05 WBC 16.6 H RDW 14.5 H Seg Neutrophils % 79.4 H Absolute Neutrophils 13.2 H Sodium 136.4 L Potassium 5.2 H Chloride 96 L BUN 28 H Creatinine 1.36 H Est GFR ( Amer) 49 L Est GFR (Non-Af Amer) 41 L Glucose 315 H AST 37 H Alkaline Phosphatase 142 H Urine Protein >=500 H Urine Glucose (UA) >=500 H Urine Blood SMALL H Ur Leukocyte Esterase LARGE H Discharge - Discharge Clinical Impression: Left flank pain, Pyelonephritis Vomiting Qualifiers: Vomiting type: unspecified Vomiting Intractability: non-intractable Nausea presence: with nausea Qualified Code(s): R11.2 - Nausea with vomiting, unspecified Condition: Stable Disposition: ADMITTED INPATIENT Admitting Provider: [facility] Admitted: Telemetry
--- NOTE | 2017-05-25 21:30 | RADIOLOGY REPORT (SQ) ---
EXAM DESCRIPTION: CT LTD RENAL STONE PROTOCOL ON COMPLETED DATE/TIME: 05/25/2017 8:41 pm REASON FOR STUDY: ?obstructing stone, left flank pain, vomiting, UTI COMPARISON: September 2015 TECHNIQUE: CT scan of the abdomen and pelvis performed without intravenous or oral contrast. Images reviewed with lung, soft tissue, and bone windows. Reconstructed coronal and sagittal MPR images revi ewed. All images stored on PACS. All CT scanners at this facility use dose modulation, iterative reconstruction, and/or weight based d osing when appropriate to reduce radiation dose to as low as reasonably achievable (ALARA). [facility]: Dose Right [facility]: CareDose [facility]: Dose Right [facility]: Teradose 4D [facility]: [employer] RADIATION DOSE: Up-to-date CT equipment and radiation dose reduction techniques were employed. CTDIv ol: 27.2 mGy. DLP: 1646 mGy-cm.mGy. LIMITATIONS: None. FINDINGS: LOWER CHEST: No significant findings. No nodules or infiltrates. NON-CONTRASTED LIVER, SPLEEN, ADRENALS: Evaluation limited by lack of IV contrast. No identified sign ificant masses. PANCREAS: No masses. No peripancreatic inflammatory changes. GALLBLADDER: Status post cholecystectomy RIGHT KIDNEY AND URETER: No suspicious masses. Assessment limited by lack of IV contrast. No signif icant calcifications. No hydronephrosis or hydroureter. LEFT KIDNEY AND URETER: No suspicious masses. Assessment limited by lack of IV contrast. No signifi cant calcifications. There is hydronephrosis of the left kidney and dilatation of the left ureter t o the level of the bladder. There are edematous or inflammatory changes in the adjacent perinephric and periureteric fat. This could be related to residual hydronephrosis and edematous changes status post passage of a calculus. Possibility of a nonopaque calculus cannot be excluded. Clinical correl ation is recommended. AORTA AND RETROPERITONEUM: No aneurysm. No retroperitoneal masses or adenopathy. BOWEL AND PERITONEAL CAVITY: No obvious masses or inflammatory changes. No free fluid. APPENDIX: Not identified PELVIS, BLADDER, AND ABDOMINAL WALL:No abnormal masses. No free fluid. Bladder normal. The previousl y described large right lateral hernia sac containing bowel without obstruction is again identified. BONES: No significant findings. OTHER: No other significant finding. IMPRESSION: There is hydronephrosis of the left kidney and dilatation of the left ureter to the leve l of the bladder. There are edematous or inflammatory changes in the adjacent perinephric and periur eteric fat. This could be related to residual hydronephrosis in edematous changes status post passag e of a calculus. The possibility of a nonopaque calculus cannot be excluded. Clinical correlation i s recommended. The previously described large right lateral hernia sac containing bowel without obst ruction is again identified. Other findings as noted above COMMENT: Quality ID # [id number]: Final reports with documentation of one or more dose reduction techniques (e.g., Automated exposure control, adjustment of the mA and/or kV according to patient size, use of iterative reconstruction technique) TECHNICAL DOCUMENTATION: JOB ID: [id number] [employer]- All Rights Reserved
[2017-05-25] MEDS ORDERED: HYDROMORPHONE HCL INJ/PF 2 MG/ML AMPULE ONE (21:58)
[2017-05-26] MEDS ORDERED: DEXTROSE 40% GEL 15 GM TUBE X 2 PO PRN (01:01)
[2017-05-26] MEDS ORDERED: DEXTROSE 50%-WATER SYRINGE 25 GM/50 ML DOSE IV PRN (01:01)
[2017-05-26] MEDS ORDERED: DEXTROSE 40% GEL 15 GM TUBE PO PRN (01:01)
[2017-05-26] MEDS ORDERED: GLUCAGON,HUMAN RECOMB 1 MG INJ IM PRN (01:01)
[2017-05-26] MEDS ORDERED: DEXTROSE 50%-WATER SYRINGE 12.5 GM/25 ML DOSE IV PRN (01:01)
[2017-05-26] MEDS ORDERED: NORMAL SALINE 1000 ML 1,000 ML IV PRN (01:04)
[2017-05-26] MEDS: ONDANSETRON HCL INJ/PF 4 MG/2 ML SDV IV PRN ×2 (01:15→06:15)
[2017-05-26] MEDS: OXYCODONE-ACETAMINOPHEN 5-325 MG TABLET PO PRN ×2 (01:15→16:11)
[2017-05-26] MEDS: INSULIN LISPRO 100 UNIT/ML 3 ML VIAL SUBCUT PRN ×4 (09:39→21:58)
[2017-05-26] MEDS: ENOXAPARIN SODIUM INJ 30 MG/0.3 ML DISP.SYRIN SUBCUT SCH (09:39)
[2017-05-26] MEDS: CIPROFLOXACIN 400 MG/D5W RTU 400 MG/200 ML RTUPB IV SCH ×2 (09:40→21:13)
[2017-05-26] MEDS ORDERED: LANSOPRAZOLE 30 MG TAB.RAP.DR PO SCH (10:00)
[2017-05-26] MEDS ORDERED: ALPRAZOLAM 0.5 MG TABLET PO PRN (21:09)
--- NOTE | 2017-05-26 21:38 | PDOC H&P ---
History of Present Illness Admission Date/PCP: 05/25/17 22:53 AMBAR TORRESHARISShaneka Patient complains of: Abdominal and left Flank pain, Nausea, Vomiting History of Present Illness: JESU ORR is a 56 year old female known to my practice who was brought to the ED by EMS due to worsening left flank and abdominal pain. She reported associated worsening nausea and vomiting. She claimed development of diarrhea necessitating EMS service activation. She reported chills but no definite fever , diaphoresis, chest pain or difficulty with breathing. She claimed slight hematuria. She denied any headache or dizziness. Her initial evaluation in the ED was revealed significant leukocytosis, abnormal CT scan kidney stone protocol with left hydronephrosis and hydroureter without identifiable renal calculi. She was advised hospitalization for further evaluation and management. Her morbidities include renal cancer with right nephrectomy, Diabetes mellitus type 2, HTN, CAD with stent angioplasty, morbid obesity and Obstructive sleep apnea. Past Medical History Cardiac Medical History: Reports: Congestive Heart Failure, Coronary Artery Disease, Hypertension Denies: DVT Endocrine Medical History: Reports: Diabetes Mellitus Type 1, Diabetes Mellitus Type 2 Renal/ Medical History: Reports: End Stage Renal Disease - stage 3 Malignancy Medical History: Reports: Renal (Kidney) Cancer - s/p right nephrectomy September, Psychiatric Medical History: Reports: Depression Hematology: Reports: Anemia Past Surgical History Past Surgical History: Reports: Cholecystectomy, Coronary Stent - 2013, Orthopedic Surgery - Left great toe amputation Social History Lives with: Family Smoking Status: Former Smoker Frequency of Alcohol Use: None Hx Recreational Drug Use: No Drugs: None Hx Prescription Drug Abuse: No - Advance Directive Resuscitation Status: Full Code Family History Family History: Reviewed & Not Pertinent Parental Family History Reviewed: Yes Children Family History Reviewed: Yes Sibling(s) Family History Reviewed.: Yes Medication/Allergy Home Medications: Alprazolam [Xanax 0.5 mg Tablet] 0.5 mg PO Q12HP PRN 05/26/17 Aspirin [Aspirin EC] 81 mg PO DAILY 05/26/17 Atorvastatin Calcium [Lipitor 80 mg Tablet] 80 mg PO QHS 05/26/17 Cyclobenzaprine HCl [Flexeril 10 mg Tablet] 10 mg PO HSP PRN 05/26/17 Fluoxetine HCl [Prozac] 30 mg PO QAM 05/26/17 Furosemide [Lasix 40 mg Tablet] 40 mg PO DAILY 05/26/17 Gabapentin [Neurontin] 600 mg PO Q8 05/26/17 Hydralazine HCl [Apresoline 25 mg Tablet] 25 mg PO DAILY 05/26/17 Icosapent Ethyl [Vascepa] 2 gm PO Q12A MDD TAKE 2HR APART FROM METOPROLOL Insulin Aspart [Novolog Flexpen] 0 unit SUBCUT .SLD SCALE 05/26/17 Insulin Degludec [Tresiba Flextouch U-100] 70 unit SQ QHS 05/26/17 Isosorbide Mononitrate [Isosorbide Mononitrate ER] 30 mg PO DAILY 05/26/17 Linagliptin [Tradjenta] 5 mg PO DAILY 05/26/17 Lisinopril [Prinivil 10 mg Tablet] 20 mg PO DAILY 05/26/17 Metoclopramide HCl [Reglan] 5 mg PO DAILY 05/26/17 Metoprolol Succinate [Toprol XL 100 mg Tablet] 100 mg PO DAILY 05/26/17 Omeprazole 40 mg PO DAILY 05/26/17 Oxycodone HCl/Acetaminophen [Percocet 5-325 mg Tablet] 1 tab PO Q8HP PRN Ranitidine HCl [Zantac] 150 mg PO QAM 05/26/17 Ranolazine [Ranexa 500 mg Tab.sr] 500 mg PO Q12 05/26/17 Zaleplon [Sonata] 5 mg PO HSP PRN 05/26/17 Allergies/Adverse Reactions: Penicillins Allergy (Unknown, Verified 05/25/17 18:49) Review of Systems Constitutional: PRESENT: chills Eyes: ABSENT: visual disturbances Ears: ABSENT: hearing changes Nose, Mouth, and Throat: ABSENT: as per HPI, headache(s), mouth pain, sore throat, vertigo, other Cardiovascular: ABSENT: chest pain, dyspnea on exertion, edema, orthropnea, palpitations Respiratory: ABSENT: cough, hemoptysis Gastrointestinal: PRESENT: abdominal pain, diarrhea, nausea, vomiting. ABSENT: as per HPI, bloating, coffee ground emesis, constipation, dysphagia, heartburn, hematemesis, hematochezia, melena, other Genitourinary: PRESENT: hematuria. ABSENT: as per HPI, difficulty urinating, dysuria, nocturia, other Musculoskeletal: PRESENT: back pain - Left flank pain Integumentary: ABSENT: rash, wounds Neurological: ABSENT: abnormal gait, abnormal speech, confusion, dizziness, focal weakness, syncope Psychiatric: ABSENT: anxiety, depression, homidical ideation, suicidal ideation Endocrine: ABSENT: cold intolerance, heat intolerance, menstrual abnormalities, polydipsia, polyuria Hematologic/Lymphatic: ABSENT: easy bleeding, easy bruising, lymphadenopathy Allergic/Immunologic: ABSENT: as per HPI, seasonal rhinorrhea, other Physical Exam Vital Signs: Temp Pulse Resp BP Pulse Ox 97.4 F 92 22 H 132/68 H 93 05/26/17 15:39 05/26/17 15:39 05/26/17 15:39 05/26/17 15:39 05/26/17 15:39 Intake & Output 05/25/17 05/26/17 05/27/17 06:59 06:59 06:59 Intake Total 240 1911 Output Total 300 500 Balance -60 1411 Weight 136.2 kg General appearance: PRESENT: no acute distress, cooperative, morbidly obese Head exam: PRESENT: atraumatic, normocephalic Eye exam: PRESENT: conjunctiva pink, EOMI, PERRLA. ABSENT: scleral icterus Throat exam: ABSENT: post pharyngeal erythema, tonsillar erythema, tonsillar exudate, tonsillogmegaly, other Neck exam: PRESENT: full ROM. ABSENT: carotid bruit, JVD, lymphadenopathy, thyromegaly Respiratory exam: PRESENT: clear to auscultation tarsha, decreased breath sounds - at lung bases Cardiovascular exam: PRESENT: RRR. ABSENT: diastolic murmur, rubs, systolic murmur Pulses: PRESENT: normal dorsalis pedis pul, +2 pedal pulses bilateral Vascular exam: PRESENT: normal capillary refill. ABSENT: pallor GI/Abdominal exam: PRESENT: guarding - minimal to palpation, hernia, normal bowel sounds, soft, tenderness - left lower region and flank. ABSENT: distended , mass, organolmegaly, rebound Rectal exam: PRESENT: deferred Gentrourinary exam: ABSENT: indwelling catheter Extremities exam: ABSENT: pedal edema Musculoskeletal exam: PRESENT: normal inspection Neurological exam: PRESENT: alert, awake, oriented to person, oriented to place , oriented to time, oriented to situation, CN II-XII grossly intact. ABSENT: motor sensory deficit Psychiatric exam: PRESENT: appropriate affect, normal mood. ABSENT: homicidal ideation, suicidal ideation Skin exam: PRESENT: dry, intact, warm. ABSENT: cyanosis, rash Results Laboratory Results: I reviewed her laboratory results on [employer] and form significant part of my medical decision making. Impressions: Limited or Localized CT 05/25/17 20:23 IMPRESSION: There is hydronephrosis of the left kidney and dilatation of the left ureter to the level of the bladder. There are edematous or inflammatory changes in the adjacent perinephric and periureteric fat. This could be related to residual hydronephrosis in edematous changes status post passage of a calculus. The possibility of a nonopaque calculus cannot be excluded. Clinical correlation is recommended. The previously described large right lateral hernia sac containing bowel without obstruction is again identified. Other findings as noted above Assessment & Plan - Diagnosis (1) Acute pyelonephritis Plan: See admitting physician orders. (2) SIRS (systemic inflammatory response syndrome) Is this a current diagnosis for this admission?: Yes Plan: See admitting physician orders. (3) Diabetes mellitus type 2 in obese Is this a current diagnosis for this admission?: Yes Plan: See admitting physician orders. (4) Hypertension Qualifiers: Hypertension type: essential hypertension Qualified Code(s): I10 - Essential (primary) hypertension Is this a current diagnosis for this admission?: Yes Plan: See admitting physician orders. (5) Hyperlipidemia Qualifiers: Hyperlipidemia type: pure hypercholesterolemia Qualified Code(s): E78.00 - Pure hypercholesterolemia, unspecified Is this a current diagnosis for this admission?: Yes Plan: See admitting physician orders. (6) CAD (coronary artery disease) Qualifiers: Coronary Disease-Associated Artery/Lesion type: unspecified vessel or lesion type [place] vs. transplanted heart: [place] heart Associated angina: with unspecified angina Qualified Code(s): I25.119 - Atherosclerotic heart disease of [place] coronary artery with unspecified angina pectoris Is this a current diagnosis for this admission?: Yes Plan: See admitting physician orders. (7) Obstructive sleep apnea of adult Is this a current diagnosis for this admission?: Yes Plan: See admitting physician orders. (8) Morbid obesity with BMI of 45.0-49.9, adult Is this a current diagnosis for this admission?: Yes Plan: See admitting physician orders. (9) Mixed anxiety and depressive disorder Is this a current diagnosis for this admission?: Yes Plan: See admitting physician orders. - Time Time Spent: 50 to 70 Minutes Medications reviewed and adjusted accordingly: Yes Anticipated discharge: Home with Homehealth - Inpatient Certification Based on my medical assessment, after consideration of the patient's comorbidities, presenting symptoms, or acuity I expect that the services needed warrant INPATIENT care.: Yes I certify that my determination is in accordance with my understanding of Medicare's requirements for reasonable and necessary INPATIENT services [42 CFR 412.3e].: Yes Medical Necessity: Need Close Monitoring Due to Risk of Patient Decompensation, Need For IV Fluids, Need for IV Antibiotics, Risk of Complication if Not Cared For in Hospital Post Hospital Care: D/C Fashion Coordinator Documentation - Plan Summary Plan Summary: See admitting physician orders.
[2017-05-26] MEDS: RANOLAZINE 500 MG TAB.SR.12H PO SCH (21:45)
[2017-05-26] MEDS: ATORVASTATIN CALCIUM 80 MG TABLET PO SCH (21:45)
[2017-05-26] MEDS ORDERED: INSULIN DEGLUDEC 70 UNIT SQ SCH (22:00)
[2017-05-27 05:12] LABS: ABSOLUTE BASOPHILS # (AUTO) 0.1 10^3/uL (0.0-0.2); ABSOLUTE EOSINOPHILS # (AUTO) 0.5 10^3/uL (0.0-0.6); ABSOLUTE LYMPHOCYTES (AUTO) 3.3 10^3/uL (0.5-4.7); ABSOLUTE MONOCYTES (AUTO) 0.6 10^3/uL (0.1-1.4); BASOPHILS % (AUTO) 0.7 % (0-2); HGB HCT DIFFERENCE -0.2; LYMPHOCYTES % (AUTO) 31.8 % (13-45); MEAN CORPUSCULAR HEMOGLOBIN 27.2 pg (27.0-33.4); MEAN CORPUSCULAR HGB CONC 33.1 g/dL (32.0-36.0); MEAN CORPUSCULAR VOLUME 82 fl (80-97); MONOCYTES % (AUTO) 5.8 % (3-13); RED BLOOD COUNT 3.89 10^6/uL (3.72-5.28); RED CELL DISTRIBUTION WIDTH 14.7 % (11.5-14.0); SEGMENTED NEUTROPHILS % (AUTO) 56.7 % (42-78); WHITE BLOOD COUNT 10.5 10^3/uL (4.0-10.5)
[2017-05-27 05:15] LABS: HEMOGLOBIN 10.6 g/dL (12.0-15.5)
[2017-05-27] MEDS: LANSOPRAZOLE 30 MG TAB.RAP.DR PO SCH (05:18)
[2017-05-27 05:26] LABS: ALANINE AMINOTRANSFERASE 38 U/L (9-52); ALKALINE PHOSPHATASE 94 U/L (38-126); ANION GAP 10 (5-19); ASPARTATE AMINO TRANSFERASE 29 U/L (14-36); BILIRUBIN,DIRECT 0.3 mg/dL (0.0-0.4); BILIRUBIN,TOTAL 0.3 mg/dL (0.2-1.3); BLOOD UREA NITROGEN 23 mg/dL (7-20); CALCIUM 8.7 mg/dL (8.4-10.2); CARBON DIOXIDE 26 mmol/L (22-30); CHLORIDE 101 mmol/L (98-107); CREATININE RESULT 1.39 mg/dL (0.52-1.25); GLUCOSE 243 mg/dL (75-110); TOTAL PROTEIN 6.4 g/dL (6.3-8.2)
[2017-05-27] MEDS ORDERED: FLUOXETINE HCL 30 MG PO SCH (08:00)
[2017-05-27] MEDS ORDERED: (PENDING PHARMACY ID) (Ranitidine Hcl [Zantac 150 Mg Tablet] 150 MG) PO SCH (08:00)
[2017-05-27] MEDS: INSULIN LISPRO 100 UNIT/ML 3 ML VIAL SUBCUT PRN ×4 (08:36→22:37)
[2017-05-27] MEDS: FAMOTIDINE 20 MG TABLET PO SCH (08:36)
--- NOTE | 2017-05-27 09:28 | EKG REPORT ---
SEVERITY:- ABNORMAL ECG - SINUS TACHYCARDIA LEFT AXIS DEVIATION LVH WITH SECONDARY REPOLARIZATION ABNORMALITY BORDERLINE PROLONGED QT INTERVAL : Confirmed by: Andreas Leach 27-May-2017 09:27:10
[2017-05-27] MEDS ORDERED: LISINOPRIL 10 MG TABLET PO SCH (10:00)
[2017-05-27] MEDS ORDERED: ISOSORBIDE MONONITRATE 30 MG TAB.ER.24H PO SCH (10:00)
[2017-05-27] MEDS ORDERED: (PENDING PHARMACY ID) (Linagliptin [Tradjenta] 5 MG) PO SCH (10:00)
[2017-05-27] MEDS ORDERED: METOPROLOL SUCCINATE 50 MG TAB.SR.24H PO SCH (10:00)
[2017-05-27] MEDS: METOCLOPRAMIDE HCL 10 MG TABLET PO SCH (10:51)
[2017-05-27] MEDS: SITAGLIPTIN PHOSPHATE 50 MG TABLET PO SCH (10:52)
[2017-05-27] MEDS: LISINOPRIL 10 MG TABLET PO SCH (10:52)
[2017-05-27] MEDS: ISOSORBIDE MONONITRATE 30 MG TAB.ER.24H PO SCH (10:52)
[2017-05-27] MEDS: METOPROLOL SUCCINATE 50 MG TAB.SR.24H PO SCH (10:52)
[2017-05-27] MEDS: ASPIRIN 81 MG TABLET, ENT COATED PO SCH (10:52)
[2017-05-27] MEDS: RANOLAZINE 500 MG TAB.SR.12H PO SCH ×2 (10:53→22:25)
[2017-05-27] MEDS: ENOXAPARIN SODIUM INJ 30 MG/0.3 ML DISP.SYRIN SUBCUT SCH (10:53)
[2017-05-27] MEDS: OXYCODONE-ACETAMINOPHEN 5-325 MG TABLET PO PRN ×2 (10:53→22:25)
[2017-05-27] MEDS: CIPROFLOXACIN 400 MG/D5W RTU 400 MG/200 ML RTUPB IV SCH ×2 (10:53→22:26)
[2017-05-27] MEDS ORDERED: INSULIN DEGLUDEC 80 UNIT SQ SCH (17:40)
--- NOTE | 2017-05-27 18:15 | PDOC PROGRESS REPORT ---
Subjective Progress Note for:: 05/27/17 Subjective:: Patient reported less abdominal and flank pain. Recurrent low level fever with temperature in upper 90's. No nausea or vomiting. No chest pain or difficulty with breathing. Using CPAP machine. Urine culture grew E. coli sensitive to Ciprofloxacin. Physical Exam Vital Signs: Temp Pulse Resp BP Pulse Ox 97.4 F 76 16 101/57 L 95 05/27/17 15:43 05/27/17 15:43 05/27/17 15:43 05/27/17 15:43 05/27/17 15:43 Intake & Output 05/26/17 05/27/17 05/28/17 06:59 06:59 06:59 Intake Total 240 2591 Output Total 300 2200 Balance -60 391 Weight 136.2 kg 136.4 kg General appearance: PRESENT: no acute distress, morbidly obese Head exam: PRESENT: atraumatic, normocephalic Eye exam: PRESENT: conjunctiva pink, EOMI, PERRLA. ABSENT: scleral icterus Mouth exam: PRESENT: moist Respiratory exam: PRESENT: clear to auscultation tarsha, decreased breath sounds - at lung bases Cardiovascular exam: PRESENT: RRR. ABSENT: diastolic murmur, rubs, systolic murmur Vascular exam: PRESENT: normal capillary refill. ABSENT: pallor GI/Abdominal exam: PRESENT: normal bowel sounds, soft, tenderness - minimal CVA and lower abdominal tenderness to deep palpation.. ABSENT: distended, guarding , mass, organolmegaly, rebound Extremities exam: ABSENT: pedal edema Musculoskeletal exam: PRESENT: normal inspection Neurological exam: PRESENT: alert, awake, oriented to person, oriented to place , oriented to time, oriented to situation, CN II-XII grossly intact. ABSENT: motor sensory deficit Psychiatric exam: PRESENT: appropriate affect, normal mood. ABSENT: homicidal ideation, suicidal ideation Skin exam: PRESENT: dry, intact, warm. ABSENT: cyanosis, rash Results Laboratory Results: 05/27/17 04:30 05/27/17 04:30 05/27/17 05/27/17 04:30 04:30 WBC 10.5 RBC 3.89 Hgb 10.6 L Hct 32.0 L MCV 82 MCH 27.2 MCHC 33.1 RDW 14.7 H Plt Count 291 Seg Neutrophils % 56.7 Lymphocytes % 31.8 Monocytes % 5.8 Eosinophils % 5.0 Basophils % 0.7 Absolute Neutrophils 6.0 Absolute Lymphocytes 3.3 Absolute Monocytes 0.6 Absolute Eosinophils 0.5 Absolute Basophils 0.1 Sodium 137.0 Potassium 5.0 Chloride 101 Carbon Dioxide 26 Anion Gap 10 BUN 23 H Creatinine 1.39 H Est GFR ( Amer) 48 L Est GFR (Non-Af Amer) 40 L Glucose 243 H Calcium 8.7 Total Bilirubin 0.3 AST 29 ALT 38 Alkaline Phosphatase 94 Total Protein 6.4 Albumin 3.0 L Impressions: Limited or Localized CT 05/25/17 20:23 IMPRESSION: There is hydronephrosis of the left kidney and dilatation of the left ureter to the level of the bladder. There are edematous or inflammatory changes in the adjacent perinephric and periureteric fat. This could be related to residual hydronephrosis in edematous changes status post passage of a calculus. The possibility of a nonopaque calculus cannot be excluded. Clinical correlation is recommended. The previously described large right lateral hernia sac containing bowel without obstruction is again identified. Other findings as noted above Assessment & Plan - Diagnosis (1) Acute pyelonephritis Plan: Continue IV Ciprofloxacin coverage. Maintain on IV fluid hydration. (2) SIRS (systemic inflammatory response syndrome) Is this a current diagnosis for this admission?: Yes Plan: See attending physician orders. (3) Diabetes mellitus type 2 in obese Is this a current diagnosis for this admission?: Yes Plan: Patient has not been able to get Tresiba due to been non-formulary at the hospital. Patient was instructed to bring her own supply for use to avoid switching medication.. (4) Hypertension Qualifiers: Hypertension type: essential hypertension Qualified Code(s): I10 - Essential (primary) hypertension Is this a current diagnosis for this admission?: Yes Plan: See attending physician orders. (5) Hyperlipidemia Qualifiers: Hyperlipidemia type: pure hypercholesterolemia Qualified Code(s): E78.00 - Pure hypercholesterolemia, unspecified Is this a current diagnosis for this admission?: Yes (6) CAD (coronary artery disease) Qualifiers: Coronary Disease-Associated Artery/Lesion type: unspecified vessel or lesion type [place] vs. transplanted heart: [place] heart Associated angina: with unspecified angina Qualified Code(s): I25.119 - Atherosclerotic heart disease of [place] coronary artery with unspecified angina pectoris Is this a current diagnosis for this admission?: Yes (7) Obstructive sleep apnea of adult Is this a current diagnosis for this admission?: Yes (8) Morbid obesity with BMI of 45.0-49.9, adult Is this a current diagnosis for this admission?: Yes (9) Mixed anxiety and depressive disorder Is this a current diagnosis for this admission?: Yes - Time Time Spent with patient: 25-34 minutes Medications reviewed and adjusted accordingly: Yes Anticipated discharge: Home - Inpatient Certification Based on my medical assessment, after consideration of the patient's comorbidities, presenting symptoms, or acuity I expect that the services needed warrant INPATIENT care.: Yes I certify that my determination is in accordance with my understanding of Medicare's requirements for reasonable and necessary INPATIENT services [42 CFR 412.3e].: Yes Medical Necessity: Need For Continuous Telemetry Monitoring, Need for IV Antibiotics, Risk of Complication if Not Cared For in Hospital Post Hospital Care: D/C Finance Intern Documentation - Plan Summary Plan Summary: See attending physician orders. Obtain CBC with diff and BMP tomorrow.
[2017-05-27] MEDS: ATORVASTATIN CALCIUM 80 MG TABLET PO SCH (22:25)
[2017-05-27] MEDS: ONDANSETRON HCL INJ/PF 4 MG/2 ML SDV IV PRN (23:57)
[2017-05-28] MEDS: LANSOPRAZOLE 30 MG TAB.RAP.DR PO SCH (06:15)
[2017-05-28] MEDS: FAMOTIDINE 20 MG TABLET PO SCH (07:45)
[2017-05-28] MEDS: SITAGLIPTIN PHOSPHATE 50 MG TABLET PO SCH (09:14)
[2017-05-28] MEDS: ASPIRIN 81 MG TABLET, ENT COATED PO SCH (09:14)
[2017-05-28] MEDS: METOPROLOL SUCCINATE 50 MG TAB.SR.24H PO SCH (09:15)
[2017-05-28] MEDS: ENOXAPARIN SODIUM INJ 30 MG/0.3 ML DISP.SYRIN SUBCUT SCH (09:15)
[2017-05-28] MEDS: RANOLAZINE 500 MG TAB.SR.12H PO SCH ×2 (09:15→22:10)
[2017-05-28] MEDS: METOCLOPRAMIDE HCL 10 MG TABLET PO SCH (09:15)
[2017-05-28] MEDS: ISOSORBIDE MONONITRATE 30 MG TAB.ER.24H PO SCH (09:15)
[2017-05-28] MEDS: INSULIN LISPRO 100 UNIT/ML 3 ML VIAL SUBCUT PRN ×4 (09:15→22:16)
[2017-05-28] MEDS: LISINOPRIL 10 MG TABLET PO SCH (09:15)
[2017-05-28] MEDS: CIPROFLOXACIN 400 MG/D5W RTU 400 MG/200 ML RTUPB IV SCH (09:15)
[2017-05-28] MEDS ORDERED: INSULIN DEGLUDEC 80 UNIT SUBCUT SCH (10:00)
--- NOTE | 2017-05-28 11:32 | PDOC PROGRESS REPORT ---
Subjective Progress Note for:: 05/28/17 Subjective:: Patient reported feeling cold that is related to ambient temperature. Denied any fever or chills. No abdominal pain, nausea, or vomiting. No chest pain or difficulty with breathing. Remain on IV ciprofloxacin. Physical Exam Vital Signs: Temp Pulse Resp BP Pulse Ox 97.6 F 79 16 160/86 H 94 05/28/17 07:35 05/28/17 07:35 05/28/17 07:35 05/28/17 07:35 05/28/17 07:35 Intake & Output 05/27/17 05/28/17 05/29/17 06:59 06:59 06:59 Intake Total 2591 3438 Output Total 2200 1400 Balance 391 2038 Weight 136.4 kg Physical Exam: General appearance: PRESENT: no acute distress, morbidly obese Head exam: PRESENT: atraumatic, normocephalic Eye exam: PRESENT: conjunctiva pink, EOMI, PERRLA. ABSENT: scleral icterus Mouth exam: PRESENT: moist Respiratory exam: PRESENT: clear to auscultation tarsha, decreased breath sounds - at lung bases Cardiovascular exam: PRESENT: RRR. ABSENT: diastolic murmur, rubs, systolic murmur Vascular exam: PRESENT: normal capillary refill. ABSENT: pallor GI/Abdominal exam: PRESENT: normal bowel sounds, soft. ABSENT: tenderness, distended, guarding, mass, organomegaly, rebound Extremities exam: ABSENT: pedal edema Musculoskeletal exam: PRESENT: normal inspection Neurological exam: PRESENT: alert, awake, oriented to person, oriented to place , oriented to time, oriented to situation, CN II-XII grossly intact. ABSENT: motor sensory deficit Psychiatric exam: PRESENT: appropriate affect, normal mood. ABSENT: homicidal ideation, suicidal ideation Skin exam: PRESENT: dry, intact, warm. ABSENT: cyanosis, rash Results Laboratory Results: 05/27/17 04:30 05/27/17 04:30 Impressions: Limited or Localized CT 05/25/17 20:23 IMPRESSION: There is hydronephrosis of the left kidney and dilatation of the left ureter to the level of the bladder. There are edematous or inflammatory changes in the adjacent perinephric and periureteric fat. This could be related to residual hydronephrosis in edematous changes status post passage of a calculus. The possibility of a nonopaque calculus cannot be excluded. Clinical correlation is recommended. The previously described large right lateral hernia sac containing bowel without obstruction is again identified. Other findings as noted above Assessment & Plan - Diagnosis (1) Acute pyelonephritis Plan: I will discontinue IV ciprofloxacin and start on oral formulary at 500 mg po bid. (2) SIRS (systemic inflammatory response syndrome) Is this a current diagnosis for this admission?: Yes (3) Diabetes mellitus type 2 in obese Is this a current diagnosis for this admission?: Yes Plan: Discussed with pharmacist regarding substitution for Tresiba with Lantus. We will look into dosing conversion. (4) Hypertension Qualifiers: Hypertension type: essential hypertension Qualified Code(s): I10 - Essential (primary) hypertension Is this a current diagnosis for this admission?: Yes (5) Hyperlipidemia Qualifiers: Hyperlipidemia type: pure hypercholesterolemia Qualified Code(s): E78.00 - Pure hypercholesterolemia, unspecified Is this a current diagnosis for this admission?: Yes (6) CAD (coronary artery disease) Qualifiers: Coronary Disease-Associated Artery/Lesion type: unspecified vessel or lesion type [place] vs. transplanted heart: [place] heart Associated angina: with unspecified angina Qualified Code(s): I25.119 - Atherosclerotic heart disease of [place] coronary artery with unspecified angina pectoris Is this a current diagnosis for this admission?: Yes (7) Obstructive sleep apnea of adult Is this a current diagnosis for this admission?: Yes (8) Morbid obesity with BMI of 45.0-49.9, adult Is this a current diagnosis for this admission?: Yes (9) Mixed anxiety and depressive disorder Is this a current diagnosis for this admission?: Yes - Time Time Spent with patient: 25-34 minutes Medications reviewed and adjusted accordingly: Yes Anticipated discharge: Home Within: Other - Inpatient Certification Based on my medical assessment, after consideration of the patient's comorbidities, presenting symptoms, or acuity I expect that the services needed warrant INPATIENT care.: Yes I certify that my determination is in accordance with my understanding of Medicare's requirements for reasonable and necessary INPATIENT services [42 CFR 412.3e].: Yes Medical Necessity: Need Close Monitoring Due to Risk of Patient Decompensation, Need For IV Fluids, Need For Continuous Telemetry Monitoring, Risk of Complication if Not Cared For in Hospital - Plan Summary Plan Summary: See attending physician orders.
[2017-05-28] MEDS ORDERED: NORMAL SALINE 1000 ML 1,000 ML IV PRN (11:34)
[2017-05-28] MEDS: INSULIN GLARGINE,HUM.REC.ANLOG 1,000 UNIT/10 ML UNIT SUBCUT SCH (12:31)
[2017-05-28] MEDS: ONDANSETRON HCL INJ/PF 4 MG/2 ML SDV IV PRN ×2 (18:13→22:10)
[2017-05-28] MEDS: OXYCODONE-ACETAMINOPHEN 5-325 MG TABLET PO PRN (20:29)
[2017-05-28] MEDS: CIPROFLOXACIN HCL 500 MG TABLET PO SCH (22:10)
[2017-05-28] MEDS: ATORVASTATIN CALCIUM 80 MG TABLET PO SCH (22:10)
[2017-05-29] MEDS: OXYCODONE-ACETAMINOPHEN 5-325 MG TABLET PO PRN ×3 (03:36→21:18)
[2017-05-29] MEDS: LANSOPRAZOLE 30 MG TAB.RAP.DR PO SCH (05:04)
[2017-05-29 05:45] LABS: ABSOLUTE BASOPHILS # (AUTO) 0.1 10^3/uL (0.0-0.2); ABSOLUTE EOSINOPHILS # (AUTO) 0.7 10^3/uL (0.0-0.6); ABSOLUTE LYMPHOCYTES (AUTO) 3.9 10^3/uL (0.5-4.7); ABSOLUTE MONOCYTES (AUTO) 0.5 10^3/uL (0.1-1.4); ABSOLUTE NEUT (AUTO) 7.7 10^3/uL (1.7-8.2); EOSINOPHILS % (AUTO) 5.4 % (0-6); HEMATOCRIT 32.9 % (36.0-47.0); HEMOGLOBIN 10.5 g/dL (12.0-15.5); HGB HCT DIFFERENCE -1.4; LYMPHOCYTES % (AUTO) 30.3 % (13-45); MEAN CORPUSCULAR HEMOGLOBIN 26.3 pg (27.0-33.4); MEAN CORPUSCULAR VOLUME 82 fl (80-97); MONOCYTES % (AUTO) 4.2 % (3-13); RED CELL DISTRIBUTION WIDTH 14.4 % (11.5-14.0); SEGMENTED NEUTROPHILS % (AUTO) 59.1 % (42-78)
[2017-05-29 06:03] LABS: ALANINE AMINOTRANSFERASE 31 U/L (9-52); ALBUMIN 3.2 g/dL (3.5-5.0); ALKALINE PHOSPHATASE 97 U/L (38-126); ANION GAP 11 (5-19); ASPARTATE AMINO TRANSFERASE 34 U/L (14-36); BILIRUBIN,DIRECT 0.3 mg/dL (0.0-0.4); BILIRUBIN,TOTAL 0.3 mg/dL (0.2-1.3); BLOOD UREA NITROGEN 24 mg/dL (7-20); CALCIUM 8.7 mg/dL (8.4-10.2); CARBON DIOXIDE 25 mmol/L (22-30); CHLORIDE 103 mmol/L (98-107); CREATININE RESULT 1.42 mg/dL (0.52-1.25); GLUCOSE 203 mg/dL (75-110); POTASSIUM 5.1 mmol/L (3.6-5.0); SODIUM 139.1 mmol/L (137-145); TOTAL PROTEIN 6.4 g/dL (6.3-8.2)
[2017-05-29] MEDS: INSULIN LISPRO 100 UNIT/ML 3 ML VIAL SUBCUT PRN ×4 (09:02→21:25)
[2017-05-29] MEDS: FAMOTIDINE 20 MG TABLET PO SCH (09:02)
[2017-05-29] MEDS: ENOXAPARIN SODIUM INJ 30 MG/0.3 ML DISP.SYRIN SUBCUT SCH (09:30)
[2017-05-29] MEDS: ISOSORBIDE MONONITRATE 30 MG TAB.ER.24H PO SCH (09:31)
[2017-05-29] MEDS: CIPROFLOXACIN HCL 500 MG TABLET PO SCH ×2 (09:31→21:17)
[2017-05-29] MEDS: LISINOPRIL 10 MG TABLET PO SCH (09:31)
[2017-05-29] MEDS: ASPIRIN 81 MG TABLET, ENT COATED PO SCH (09:32)
[2017-05-29] MEDS: METOCLOPRAMIDE HCL 10 MG TABLET PO SCH (09:32)
[2017-05-29] MEDS: SITAGLIPTIN PHOSPHATE 50 MG TABLET PO SCH (09:32)
[2017-05-29] MEDS: METOPROLOL SUCCINATE 50 MG TAB.SR.24H PO SCH (09:32)
[2017-05-29] MEDS: RANOLAZINE 500 MG TAB.SR.12H PO SCH ×2 (09:33→21:24)
[2017-05-29] MEDS: INSULIN GLARGINE,HUM.REC.ANLOG 1,000 UNIT/10 ML UNIT SUBCUT SCH (11:54)
[2017-05-29] MEDS: ACETAMINOPHEN 325 MG TABLET PO PRN (11:55)
--- NOTE | 2017-05-29 12:09 | PDOC PROGRESS REPORT ---
Subjective Progress Note for:: 05/29/17 Subjective:: No fever or chills. No abdominal or flank pain. No nausea or vomiting. No chest pain or difficulty with breathing. Her blood glucose level remain a concern. Currently on Lantus Insulin 80 units daily with sliding scale Humalog achs coverage. Physical Exam Vital Signs: Temp Pulse Resp BP Pulse Ox 97.3 F 73 19 151/70 H 96 05/29/17 10:55 05/29/17 10:55 05/29/17 10:55 05/29/17 10:55 05/29/17 10:55 Intake & Output 05/28/17 05/29/17 05/30/17 06:59 06:59 06:59 Intake Total 3438 4118 Output Total 1400 3300 Balance 2038 818 Results Laboratory Results: 05/29/17 05:12 05/29/17 05:12 05/29/17 05/29/17 05:12 05:12 WBC 13.0 H RBC 4.00 Hgb 10.5 L Hct 32.9 L MCV 82 MCH 26.3 L MCHC 32.0 RDW 14.4 H Plt Count 287 Seg Neutrophils % 59.1 Lymphocytes % 30.3 Monocytes % 4.2 Eosinophils % 5.4 Basophils % 1.0 Absolute Neutrophils 7.7 Absolute Lymphocytes 3.9 Absolute Monocytes 0.5 Absolute Eosinophils 0.7 H Absolute Basophils 0.1 Sodium 139.1 Potassium 5.1 H Chloride 103 Carbon Dioxide 25 Anion Gap 11 BUN 24 H Creatinine 1.42 H Est GFR ( Amer) 47 L Est GFR (Non-Af Amer) 39 L Glucose 203 H Calcium 8.7 Total Bilirubin 0.3 AST 34 ALT 31 Alkaline Phosphatase 97 Total Protein 6.4 Albumin 3.2 L Impressions: Limited or Localized CT 05/25/17 20:23 IMPRESSION: There is hydronephrosis of the left kidney and dilatation of the left ureter to the level of the bladder. There are edematous or inflammatory changes in the adjacent perinephric and periureteric fat. This could be related to residual hydronephrosis in edematous changes status post passage of a calculus. The possibility of a nonopaque calculus cannot be excluded. Clinical correlation is recommended. The previously described large right lateral hernia sac containing bowel without obstruction is again identified. Other findings as noted above Assessment & Plan - Diagnosis (2) SIRS (systemic inflammatory response syndrome) Is this a current diagnosis for this admission?: Yes (3) Diabetes mellitus type 2 in obese Is this a current diagnosis for this admission?: Yes (4) Hypertension Qualifiers: Hypertension type: essential hypertension Qualified Code(s): I10 - Essential (primary) hypertension Is this a current diagnosis for this admission?: Yes (5) Hyperlipidemia Qualifiers: Hyperlipidemia type: pure hypercholesterolemia Qualified Code(s): E78.00 - Pure hypercholesterolemia, unspecified Is this a current diagnosis for this admission?: Yes (6) CAD (coronary artery disease) Qualifiers: Coronary Disease-Associated Artery/Lesion type: unspecified vessel or lesion type [place] vs. transplanted heart: [place] heart Associated angina: with unspecified angina Qualified Code(s): I25.119 - Atherosclerotic heart disease of [place] coronary artery with unspecified angina pectoris Is this a current diagnosis for this admission?: Yes (7) Obstructive sleep apnea of adult Is this a current diagnosis for this admission?: Yes (8) Morbid obesity with BMI of 45.0-49.9, adult Is this a current diagnosis for this admission?: Yes (9) Mixed anxiety and depressive disorder Is this a current diagnosis for this admission?: Yes - Time Time Spent with patient: 25-34 minutes Medications reviewed and adjusted accordingly: Yes Anticipated discharge: Home with Homehealth Within: within 24 hours - Inpatient Certification Based on my medical assessment, after consideration of the patient's comorbidities, presenting symptoms, or acuity I expect that the services needed warrant INPATIENT care.: Yes I certify that my determination is in accordance with my understanding of Medicare's requirements for reasonable and necessary INPATIENT services [42 CFR 412.3e].: Yes Medical Necessity: Need Close Monitoring Due to Risk of Patient Decompensation, Need For Continuous Telemetry Monitoring, Risk of Complication if Not Cared For in Hospital Post Hospital Care: D/C Gathering Worker Documentation - Plan Summary Plan Summary: Continue oral Ciprofloxacin coverage. Obtain CBC with diff in AM. Start on AC Humalog bolus therapy with on going Lantus and sliding scale regimen.
[2017-05-29] MEDS: INSULIN LISPRO 100 UNIT/ML 3 ML VIAL SUBCUT SCH (16:30)
[2017-05-29] MEDS: ATORVASTATIN CALCIUM 80 MG TABLET PO SCH (21:17)
[2017-05-30] MEDS: ACETAMINOPHEN 325 MG TABLET PO PRN (03:31)
[2017-05-30] MEDS: LANSOPRAZOLE 30 MG TAB.RAP.DR PO SCH (06:07)
[2017-05-30] MEDS: INSULIN LISPRO 100 UNIT/ML 3 ML VIAL SUBCUT SCH ×2 (08:35→12:19)
[2017-05-30] MEDS: FAMOTIDINE 20 MG TABLET PO SCH (08:35)
[2017-05-30] MEDS: INSULIN LISPRO 100 UNIT/ML 3 ML VIAL SUBCUT PRN ×2 (08:35→12:20)
[2017-05-30] MEDS: METOPROLOL SUCCINATE 50 MG TAB.SR.24H PO SCH (09:47)
[2017-05-30] MEDS: METOCLOPRAMIDE HCL 10 MG TABLET PO SCH (09:49)
[2017-05-30] MEDS: CIPROFLOXACIN HCL 500 MG TABLET PO SCH (09:49)
[2017-05-30] MEDS: ASPIRIN 81 MG TABLET, ENT COATED PO SCH (09:49)
[2017-05-30] MEDS: ISOSORBIDE MONONITRATE 30 MG TAB.ER.24H PO SCH (09:51)
[2017-05-30] MEDS: LISINOPRIL 10 MG TABLET PO SCH (09:51)
[2017-05-30] MEDS: SITAGLIPTIN PHOSPHATE 50 MG TABLET PO SCH (09:51)
[2017-05-30] MEDS: RANOLAZINE 500 MG TAB.SR.12H PO SCH (09:52)
[2017-05-30] MEDS: ENOXAPARIN SODIUM INJ 30 MG/0.3 ML DISP.SYRIN SUBCUT SCH (09:56)
[2017-05-30 12:16] LABS: ABSOLUTE BASOPHILS # (AUTO) 0.1 10^3/uL (0.0-0.2); ABSOLUTE EOSINOPHILS # (AUTO) 0.4 10^3/uL (0.0-0.6); ABSOLUTE LYMPHOCYTES (AUTO) 2.3 10^3/uL (0.5-4.7); ABSOLUTE MONOCYTES (AUTO) 0.5 10^3/uL (0.1-1.4); ABSOLUTE NEUT (AUTO) 9.8 10^3/uL (1.7-8.2); BASOPHILS % (AUTO) 0.6 % (0-2); EOSINOPHILS % (AUTO) 2.8 % (0-6); HEMATOCRIT 32.1 % (36.0-47.0); HEMOGLOBIN 10.3 g/dL (12.0-15.5); HGB HCT DIFFERENCE -1.2; LYMPHOCYTES % (AUTO) 17.4 % (13-45); MEAN CORPUSCULAR HEMOGLOBIN 26.6 pg (27.0-33.4); MEAN CORPUSCULAR VOLUME 83 fl (80-97); MONOCYTES % (AUTO) 4.1 % (3-13); RED BLOOD COUNT 3.87 10^6/uL (3.72-5.28); RED CELL DISTRIBUTION WIDTH 14.7 % (11.5-14.0); SEGMENTED NEUTROPHILS % (AUTO) 75.1 % (42-78); WHITE BLOOD COUNT 13.1 10^3/uL (4.0-10.5)
--- NOTE | 2017-05-30 13:09 | PDOC DISCHARGE SUMMARY ---
General - Admit/Disc Date/PCP Admission Date/Primary Care Provider: 05/25/17 22:53 AMBAR JOHN Discharge Date: 05/30/17 - Discharge Diagnosis (2) SIRS (systemic inflammatory response syndrome) Is this a current diagnosis for this admission?: Yes (3) Diabetes mellitus type 2 in obese Is this a current diagnosis for this admission?: Yes (4) Hypertension Is this a current diagnosis for this admission?: Yes (5) Hyperlipidemia Is this a current diagnosis for this admission?: Yes (6) CAD (coronary artery disease) Is this a current diagnosis for this admission?: Yes (7) Obstructive sleep apnea of adult Is this a current diagnosis for this admission?: Yes (8) Morbid obesity with BMI of 45.0-49.9, adult Is this a current diagnosis for this admission?: Yes (9) Mixed anxiety and depressive disorder Is this a current diagnosis for this admission?: Yes - Additional Information Resuscitation Status: Full Code Discharge Diet: Cardiac, Diabetic Discharge Activity: Activity As Tolerated Home Medications: Alprazolam [Xanax 0.5 mg Tablet] 0.5 mg PO Q12HP PRN 05/26/17 Aspirin [Aspirin EC] 81 mg PO DAILY 05/26/17 Atorvastatin Calcium [Lipitor 80 mg Tablet] 80 mg PO QHS 05/26/17 Cyclobenzaprine HCl [Flexeril 10 mg Tablet] 10 mg PO HSP PRN 05/26/17 Fluoxetine HCl [Prozac] 30 mg PO QAM 05/26/17 Furosemide [Lasix 40 mg Tablet] 40 mg PO DAILY 05/26/17 Gabapentin [Neurontin] 600 mg PO Q8 05/26/17 Hydralazine HCl [Apresoline 25 mg Tablet] 25 mg PO DAILY 05/26/17 Icosapent Ethyl [Vascepa] 2 gm PO Q12A MDD TAKE 2HR APART FROM METOPROLOL Isosorbide Mononitrate [Isosorbide Mononitrate ER] 30 mg PO DAILY 05/26/17 Linagliptin [Tradjenta] 5 mg PO DAILY 05/26/17 Lisinopril [Prinivil 10 mg Tablet] 20 mg PO DAILY 05/26/17 Metoclopramide HCl [Reglan] 5 mg PO DAILY 05/26/17 Metoprolol Succinate [Toprol XL 100 mg Tablet] 100 mg PO DAILY 05/26/17 Omeprazole 40 mg PO DAILY 05/26/17 Oxycodone HCl/Acetaminophen [Percocet 5-325 mg Tablet] 1 tab PO Q8HP PRN Ranitidine HCl [Zantac 150 mg Tablet] 150 mg PO QAM 05/26/17 Ranolazine [Ranexa 500 mg Tab.sr] 500 mg PO Q12 05/26/17 Zaleplon [Sonata] 5 mg PO HSP PRN 05/26/17 Ciprofloxacin HCl [Cipro 500 mg Tablet] 500 mg PO Q12 #14 tablet 05/30/17 Insulin Aspart [Novolog Flexpen] 0 unit SUBCUT .SLD SCALE #0 05/30/17 Insulin Degludec [Tresiba Flextouch U-100] 80 unit SQ QHS #8 insuln.pen History of Present Illness History of Present Illness: JESU ORR is a 56 year old female known to my practice who was brought to the ED by EMS due to worsening left flank and abdominal pain. She reported associated worsening nausea and vomiting. She claimed development of diarrhea necessitating EMS service activation. She reported chills but no definite fever , diaphoresis, chest pain or difficulty with breathing. She claimed slight hematuria. She denied any headache or dizziness. Her initial evaluation in the ED was revealed significant leukocytosis, abnormal CT scan kidney stone protocol with left hydronephrosis and hydroureter without identifiable renal calculi. She was advised hospitalization for further evaluation and management. Her morbidities include renal cancer with right nephrectomy, Diabetes mellitus type 2, HTN, CAD with stent angioplasty, morbid obesity and Obstructive sleep apnea. Hospital Course Hospital Course: Patient was admitted for worsening left flank and abdominal pain, nausea, vomiting, and diarrhea. She reported associated chills. Her initial evaluation was suggestive of left Pyelonephritis with associated leukocytosis. Her abnormal CT scan kidney stone protocol revealed left hydronephrosis and hydroureter without identifiable renal calculi. Her urine culture did grew E. coli sensitive to Ciprofloxacin. She has been on IV Ciprofloxacin and eventually transition to oral route. She remain afebrile for the last 48 hours. Her leukocytosis is on downward trend. She is tolerating oral feeding and antibiotic administration. She is agreeable to discharge home today on oral antibiotic. Adjustment was made to her diabetes mellitus management with increase in Tresiba dosing to 80 units with premeal Humalog insulin 5 units in addition to her sliding scale need. She will follow up in the office as instructed upon discharge. Physical Exam Vital Signs: Temp Pulse Resp BP Pulse Ox 97.5 F 73 16 148/96 H 97 05/30/17 04:00 05/30/17 04:00 05/30/17 04:00 05/30/17 04:00 05/30/17 04:26 Intake & Output 05/29/17 05/30/17 05/31/17 06:59 06:59 06:59 Intake Total 4118 3226 Output Total 3300 2900 Balance 818 326 Physical Exam: General appearance: PRESENT: no acute distress, morbidly obese Head exam: PRESENT: atraumatic, normocephalic Eye exam: PRESENT: conjunctiva pink, EOMI, PERRLA. ABSENT: scleral icterus Mouth exam: PRESENT: moist Respiratory exam: PRESENT: clear to auscultation tarsha, decreased breath sounds - at lung bases Cardiovascular exam: PRESENT: RRR. ABSENT: diastolic murmur, rubs, systolic murmur Vascular exam: PRESENT: normal capillary refill. ABSENT: pallor GI/Abdominal exam: PRESENT: normal bowel sounds, soft. ABSENT: tenderness, distended, guarding, mass, organomegaly, rebound Extremities exam: ABSENT: pedal edema Musculoskeletal exam: PRESENT: normal inspection Neurological exam: PRESENT: alert, awake, oriented to person, oriented to place , oriented to time, oriented to situation, CN II-XII grossly intact. ABSENT: motor sensory deficit Psychiatric exam: PRESENT: appropriate affect, normal mood. ABSENT: homicidal ideation, suicidal ideation Skin exam: PRESENT: dry, intact, warm. ABSENT: cyanosis, rash Results Laboratory Results: 05/30/17 11:42 05/29/17 05:12 05/30/17 11:42 WBC 13.1 H RBC 3.87 Hgb 10.3 L Hct 32.1 L MCV 83 MCH 26.6 L MCHC 32.0 RDW 14.7 H Plt Count 309 Seg Neutrophils % 75.1 Lymphocytes % 17.4 Monocytes % 4.1 Eosinophils % 2.8 Basophils % 0.6 Absolute Neutrophils 9.8 H Absolute Lymphocytes 2.3 Absolute Monocytes 0.5 Absolute Eosinophils 0.4 Absolute Basophils 0.1 Impressions: Limited or Localized CT 05/25/17 20:23 IMPRESSION: There is hydronephrosis of the left kidney and dilatation of the left ureter to the level of the bladder. There are edematous or inflammatory changes in the adjacent perinephric and periureteric fat. This could be related to residual hydronephrosis in edematous changes status post passage of a calculus. The possibility of a nonopaque calculus cannot be excluded. Clinical correlation is recommended. The previously described large right lateral hernia sac containing bowel without obstruction is again identified. Other findings as noted above Qualifiers PATEINT BEING DISCHARGED WITH ANY OF THE FOLLOWING DIAGNOSIS?: No Plan Discharge Plan: D/C home today on Ciprofloxacin 500 mg p.o [id number] x 7 days. Time Spent: Less than 30 Minutes
[2017-05-30 13:36] VITALS: BP 148/96
[2017-05-30] MEDS ORDERED: OXYCODONE-ACETAMINOPHEN 5-325 MG TABLET PO PRN (14:30)
[2017-05-30] MEDS ORDERED: INSULIN GLARGINE,HUM.REC.ANLOG 1,000 UNIT/10 ML UNIT SUBCUT SCH (15:00)
[2017-05-31] MEDS ORDERED: FLUOXETINE HCL 20 MG/5 ML UDCUP PO SCH (08:00)
== END 2017-05-30 14:20 | disposition home health service (06) | DRG 690 ==
LOC: ER 18:40 → EH 22:53 → 4S 05-26 00:06
PROVIDERS: ADMIT Internal Medicine Geriatric Medicine; ATTEND Internal Medicine Geriatric Medicine
PROC: 5A09457 Assistance with Respiratory Ventilation, 24-96 Consecutive Hours, Continuous Positive Airway Pressure (ICD-10-PCS; principal; 2017-05-25)
DX: N10 Acute pyelonephritis (principal); Z68.42 Body mass index [BMI] 45.0-49.9, adult; R65.10 Systemic inflammatory response syndrome (SIRS) of non-infectious origin without acute organ dysfunction; N13.2 Hydronephrosis with renal and ureteral calculous obstruction; B96.20 Unspecified Escherichia coli [E. coli] as the cause of diseases classified elsewhere; E66.01 Morbid (severe) obesity due to excess calories; G47.33 Obstructive sleep apnea (adult) (pediatric); D63.1 Anemia in chronic kidney disease; E11.22 Type 2 diabetes mellitus with diabetic chronic kidney disease; I12.9 Hypertensive chronic kidney disease with stage 1 through stage 4 chronic kidney disease, or unspecified chronic kidney disease; N18.3 Chronic kidney disease, stage 3 (moderate); E78.00 Pure hypercholesterolemia, unspecified; I25.119 Atherosclerotic heart disease of native coronary artery with unspecified angina pectoris; F41.8 Other specified anxiety disorders; Z90.5 Acquired absence of kidney; Z95.5 Presence of coronary angioplasty implant and graft; Z90.49 Acquired absence of other specified parts of digestive tract; Z89.412 Acquired absence of left great toe; Z87.891 Personal history of nicotine dependence; Z79.82 Long term (current) use of aspirin; Z79.4 Long term (current) use of insulin; Z79.899 Other long term (current) drug therapy; Z88.0 Allergy status to penicillin; Z85.528 Personal history of other malignant neoplasm of kidney
CPT/HCPCS: 36415; 76380; 80053; 81001; 82962; 83690; 85025; 87040; 87086; 87088; 87186; 93005; 93010; 94660; 96365; 96375; 96376; 99285; J0744; J1170; J1650; J1815; J1956; J2405; J7030

== ENCOUNTER 2017-08-02 21:41 | Emergency (ER) | payer MEDICARE, MEDICAID ==
[2017-08-03] MEDS ORDERED: ASPIRIN 81 MG TABLET, CHEWABLE PO ONE (00:02)
--- NOTE | 2017-08-03 00:09 | ER Document Report ---
ED Medical Screen (RME) - General Chief Complaint: High Blood Sugar Stated Complaint: BLOOD SUGAR PROBLEM Time Seen by Provider: 08/03/17 00:01 TRAVEL OUTSIDE OF THE [place] IN LAST 30 DAYS: No - HPI Notes: 08/03/17 00:03 Patient is a 56-year-old female with a history of congestive heart failure, coronary artery disease with stent placement, hypertension, insulin-dependent diabetic, stage 3 CKD who presents to the ED with multiple complaints, but her primary complaint is elevated blood glucose over the last few days with associated nausea and dizziness. Patient states that she also has had generalized abdominal discomfort without any vomiting, diarrhea, melena, or hematochezia. Patient states that she also has a sharp substernal chest pain that radiates to her back over the last couple days intermittently. Pt states that she has the pain currently and is worsened by palpation to her chest wall, not ambulation. Pt is not on any blood thinners. Pt does take aspirin. Patient states that she did see her music industry intern Dr. Boyce today who did blood work on her and wants to set her up for a stress test and probable catheterization. Patient states that she does continue to use her insulin and take her home medications as directed. Patient has noted burning with urination on occasion as well. Patient has an allergy to penicillins. She denies any other recent illness. Denies any headache, fever, head injury, neck pain, changes in vision/speech/mentation/hearing, URI, sore throat, palpitations , syncope, cough, shortness of breath, wheeze, dyspnea, vomiting/diarrhea, urinary retention, hematuria, loss of control of bowel or bladder, numbness/ tingling, saddle anesthesia, muscle paralysis/weakness, or rash. I have treated and performed a rapid initial assessment of this patient. A comprehensive ED assessment and evaluation of the patient, analysis of test results and completion of medical decision making process will be conducted by additional ED providers. - Related Data Allergies/Adverse Reactions: Penicillins Allergy (Unknown, Verified 05/25/17 18:49) Past Medical History - Past Medical History Cardiac Medical History: Reports: Hx Congestive Heart Failure, Hx Coronary Artery Disease, Hx Hypertension Denies: Hx DVT Endocrine Medical History: Reports: Hx Diabetes Mellitus Type 1, Hx Diabetes Mellitus Type 2 Renal/ Medical History: Reports: Hx End Stage Renal Disease - stage 3. Denies : Hx Peritoneal Dialysis Malignancy Medical History: Reports: Hx Renal (Kidney) Cancer - s/p right nephrectomy September, Psychiatric Medical History: Reports: Hx Depression Past Surgical History: Reports: Hx Cardiac Surgery - stents, Hx Cholecystectomy , Hx Coronary Stent - 2013, Hx Kidney (Renal Surgery) - right nephrectomy, Hx Orthopedic Surgery - Left great toe amputation - Immunizations Hx Diphtheria, Pertussis, Tetanus Vaccination: Yes History of Influenza Vaccine for 04/2017 - 09/2017 Season: Yes Influenza Administration Date for 04/2017 - 09/2017 Season: 04/10/17 Physical Exam - Respiratory Respiratory status: No respiratory distress Breath sounds: Normal Chest palpation: Tender - correlates with pain described - Cardiovascular Rhythm: Regular Heart sounds: Normal auscultation - Extremities Ankle: Edema - 1+ b/l
[2017-08-03 01:04] LABS: ABSOLUTE BASOPHILS # (AUTO) 0.1 10^3/uL (0.0-0.2); ABSOLUTE EOSINOPHILS # (AUTO) 0.4 10^3/uL (0.0-0.6); ABSOLUTE LYMPHOCYTES (AUTO) 3.7 10^3/uL (0.5-4.7); ABSOLUTE MONOCYTES (AUTO) 0.5 10^3/uL (0.1-1.4); ABSOLUTE NEUT (AUTO) 6.8 10^3/uL (1.7-8.2); EOSINOPHILS % (AUTO) 3.7 % (0-6); LYMPHOCYTES % (AUTO) 32.2 % (13-45); MEAN CORPUSCULAR HEMOGLOBIN 25.9 pg (27.0-33.4); MEAN CORPUSCULAR HGB CONC 32.4 g/dL (32.0-36.0); MEAN CORPUSCULAR VOLUME 80 fl (80-97); MONOCYTES % (AUTO) 4.5 % (3-13); PLATELET COUNT 356 10^3/uL (150-450); RED BLOOD COUNT 4.63 10^6/uL (3.72-5.28); RED CELL DISTRIBUTION WIDTH 14.9 % (11.5-14.0); SEGMENTED NEUTROPHILS % (AUTO) 58.6 % (42-78); TOTAL CELLS COUNTED % (AUTO) 100 %; WHITE BLOOD COUNT 11.7 10^3/uL (4.0-10.5)
[2017-08-03 01:05] LABS: VENOUS BLOOD BASE EXCESS 2.9 mmol/L; VENOUS BLOOD HCO3 28.8 mmol/L (20-32); VENOUS BLOOD PCO2 49.2 mmHg (35-63); VENOUS BLOOD PH 7.39 (7.30-7.42)
[2017-08-03 01:23] LABS: ALANINE AMINOTRANSFERASE 30 U/L (9-52); ALBUMIN 4.1 g/dL (3.5-5.0); ALKALINE PHOSPHATASE 116 U/L (38-126); ANION GAP 12 (5-19); ASPARTATE AMINO TRANSFERASE 28 U/L (14-36); BILIRUBIN,DIRECT 0.3 mg/dL (0.0-0.4); BILIRUBIN,TOTAL 0.4 mg/dL (0.2-1.3); BLOOD UREA NITROGEN 21 mg/dL (7-20); CALCIUM 9.8 mg/dL (8.4-10.2); CARBON DIOXIDE 28 mmol/L (22-30); CHLORIDE 99 mmol/L (98-107); CREATINE KINASE 110 U/L (30-135); GLUCOSE 338 mg/dL (75-110); POTASSIUM 4.7 mmol/L (3.6-5.0); SODIUM 138.5 mmol/L (137-145); TOTAL PROTEIN 8.1 g/dL (6.3-8.2)
[2017-08-03 01:29] LABS: AMORPHOUS SEDIMENT,URINE TRACE /HPF; APPEARANCE,URINE CLOUDY; BILIRUBIN,URINE NEGATIVE (NEGATIVE); COLOR,URINE YELLOW; GLUCOSE, URINE >=500 mg/dL (NEGATIVE); KETONES,URINE NEGATIVE (NEGATIVE); LEUKOCYTE ESTERASE,URINE TRACE (NEGATIVE); NITRITE,URINE NEGATIVE (NEGATIVE); PROTEIN,URINE 100 mg/dL (NEGATIVE); URINE SPECIFIC GRAVITY 1.028; UROBILINOGEN,URINE NEGATIVE mg/dL (<2.0)
[2017-08-03] MEDS: NORMAL SALINE 1000 ML 1,000 ML IV PRN ×2 (01:29→02:19)
[2017-08-03 01:36] LABS: NT PRO BNP 83 pg/mL (5-900); TROPONIN I < 0.012 ng/mL
[2017-08-03] MEDS ORDERED: CEFTRIAXONE INJ 1000 MG VIAL IV ONE (01:49)
[2017-08-03] MEDS ORDERED: ONDANSETRON HCL INJ/PF 4 MG/2 ML SDV IV ONE (01:49)
[2017-08-03] MEDS ORDERED: INSULIN REG, HUMAN 100 UNIT/ML 3 ML VIAL (PYX) SUBCUT ONE (01:51)
--- NOTE | 2017-08-03 02:15 | RADIOLOGY REPORT (SQ) ---
EXAM DESCRIPTION: CHEST SINGLE VIEW CLINICAL HISTORY: chest pain COMPARISON: None. FINDINGS: Single frontal view of the chest. The cardiomediastinal silhouette has normal size and contour. No consolidation, pneumothorax, or pleural effusion. No displaced rib fractures identified. Upper abdominal soft tissues are unremarkable. Low lung volumes. Leads overlie the chest. IMPRESSION: 1. No acute pulmonary process identified.
--- NOTE | 2017-08-03 02:59 | ER Document Report ---
ED General - General Chief Complaint: High Blood Sugar Stated Complaint: BLOOD SUGAR PROBLEM Time Seen by Provider: 08/03/17 00:01 Notes: Patient is a 56-year-old female presents with complaint of feeling weak and some nausea last couple days. She also has had a lot of dysuria and no said her blood sugars have been abnormal. She therefore came to the ER. She says that she has had some pain mainly in the suprapubic region. No back pain. No new or abnormal chest pain for her. She does have some chronic chest pain which is reproducible palpation. No other complaints at this time. She does take insulin at home for her diabetes. She says she has been taking her insulin as prescribed. TRAVEL OUTSIDE OF THE [place] IN LAST 30 DAYS: No - Related Data Allergies/Adverse Reactions: Penicillins Allergy (Unknown, Verified 05/25/17 18:49) Past Medical History - Social History Smoking Status: Former Smoker Chew tobacco use (# tins/day): No Frequency of alcohol use: None Drug Abuse: None Family History: Reviewed & Not Pertinent Patient has suicidal ideation: No Patient has homicidal ideation: No - Past Medical History Cardiac Medical History: Reports: Hx Congestive Heart Failure, Hx Coronary Artery Disease, Hx Hypertension Denies: Hx DVT Endocrine Medical History: Reports: Hx Diabetes Mellitus Type 1, Hx Diabetes Mellitus Type 2 Renal/ Medical History: Reports: Hx End Stage Renal Disease - stage 3. Denies : Hx Peritoneal Dialysis Malignancy Medical History: Reports: Hx Renal (Kidney) Cancer - s/p right nephrectomy September, Psychiatric Medical History: Reports: Hx Depression Past Surgical History: Reports: Hx Cardiac Surgery - stents, Hx Cholecystectomy , Hx Coronary Stent - 2013, Hx Kidney (Renal Surgery) - right nephrectomy, Hx Orthopedic Surgery - Left great toe amputation - Immunizations Hx Diphtheria, Pertussis, Tetanus Vaccination: Yes Hx Pneumococcal Vaccination: 07/11/13 Review of Systems - Review of Systems Notes: My Normal Review Basic REVIEW OF SYSTEMS: CONSTITUTIONAL : Has felt more weak than usual last few days. EENT: Denies eye, ear, throat, or mouth pain or symptoms. Denies nasal or sinus congestion. CARDIOVASCULAR: Denies chest pain. RESPIRATORY: Denies cough, cold, or chest congestion. Denies shortness of breath, difficulty breathing, or wheezing. GASTROINTESTINAL: Some suprapubic and lower abdominal pain. Some nausea. GENITOURINARY: Recurrent dysuria. MUSCULOSKELETAL: Denies neck or back pain or joint pain or swelling. SKIN: Denies rash or skin lesions. NEUROLOGICAL: Denies altered mental status or loss of consciousness. Denies headache. Denies weakness or paralysis or loss of use of either side. Denies problems with gait or speech. Denies sensory or motor loss. ALL OTHER SYSTEMS REVIEWED AND NEGATIVE. Physical Exam - Vital signs Vitals: Resp Pulse Ox 20 93 08/03/17 01:42 08/03/17 01:42 - Notes Notes: General Appearance: Well nourished, alert, cooperative, no acute distress, no obvious discomfort. Appearing. Vitals: reviewed, See vital signs table. Head: no swelling or tenderness to the head Eyes: PERRL, EOMI, Conjuctiva clear Mouth: No decreasd moisture Throat: No tonsillar inflammation, No airway obstruction, No lymphadenopathy Lungs: No wheezing, No rales, No rhonci, No accessory muscle use, good air exchange bilaterally. Heart: Normal rate, Regular rythm, No murmur, no rub Abdomen: Normal BS, soft, No rigidity, mild suprapubic and lower abdominal tenderness palpation. Upper abdomen is completely nontender., No guarding, no rebound, no abdominal masses, no organomegaly Extremities: strength 5/5 in all extremities, good pulses in all extremities, no swelling or tenderness in the extremities, no edema. Skin: warm, dry, appropriate color, no rash Neuro: speech clear, oriented x 3, normal affect, responds appropriately to questions. Course - Re-evaluation Re-evalutation: 08/03/17 02:59 Patient is currently receiving Rocephin. She is having desaturations of oxygen which she falls asleep. She usually wears CPAP at night due to significant sleep apnea. We will place her on CPAP while she is here so that she does not have recurrent hypoxemia. 08/03/17 03:38 After being placed on the CPAP patient's no longer had any periods of hypoxemia. She does have severe sleep apnea. I talked the patient about this and she is aware of this and does wear her CPAP religiously at home at nighttime. Patient is feeling improved after some fluids as well as antibiotic. I did give her low-dose insulin. I suspect that her sugars have been a little higher than normal due to her urinary tract infection. Will place her on Keflex. Also give her Zofran for nausea. I encouraged her follow- up closely with her primary care doctor next 1-2 days. I encouraged her return to ER immediately if she has fevers, difficulty breathing, vomiting, or she feels unwell. Patient agrees with plan will be discharged home. Dictation of this chart was performed using voice recognition software; therefore, there may be some unintended grammatical errors. - Vital Signs Vital signs: Temp Pulse Resp BP Pulse Ox 22 H 157/82 H 97 08/03/17 03:01 08/03/17 03:01 08/03/17 03:01 - Laboratory Result Diagrams: 08/03/17 00:51 08/03/17 00:51 Laboratory results interpreted by me: 08/03/17 08/03/17 08/03/17 00:26 00:51 00:51 WBC 11.7 H MCH 25.9 L RDW 14.9 H BUN 21 H Creatinine 1.31 H Est GFR ( Amer) 51 L Est GFR (Non-Af Amer) 42 L Glucose 338 H POC Glucose Urine Protein 100 H Urine Glucose (UA) >=500 H Urine Blood SMALL H Ur Leukocyte Esterase TRACE H 08/03/17 02:57 WBC MCH RDW BUN Creatinine Est GFR ( Amer) Est GFR (Non-Af Amer) Glucose POC Glucose 336 H Urine Protein Urine Glucose (UA) Urine Blood Ur Leukocyte Esterase - EKG Interpretation by Me Additional EKG results interpreted by me: 08/03/17 03:37 EKG is reviewed and interpreted by me. EKG shows sinus tachycardia with rate [address] segment elevation or depression. NV interval, QRS duration, QTc intervals are within normal range. Old EKG for comparison is from May 26, 2017. Discharge - Discharge Clinical Impression: Hyperglycemia UTI (urinary tract infection) Qualifiers: Urinary tract infection type: site unspecified Hematuria presence: without hematuria Qualified Code(s): N39.0 - Urinary tract infection, site not specified Sleep apnea Qualifiers: Sleep apnea type: unspecified type Qualified Code(s): G47.30 - Sleep apnea, unspecified Condition: Good Disposition: HOME, SELF-CARE Additional Instructions: You appears to have a urinary tract infection. A urinary tract infection can cause your blood sugar to elevate and also make you feel weak. Please take the antibiotic as prescribed. Please follow up with Dr. Sofia in 1-2 days for close reevaluation. Please have a low threshold to return to the ER immediately if you have recurrent vomiting, fevers, difficulty breathing, or feel that you are getting worse. Prescriptions: Cephalexin Monohydrate [Keflex 500 mg Capsule] 500 mg PO BID #10 capsule Ondansetron [Zofran Odt 4 mg Tablet] 1 tab PO Q4H PRN #10 tab.rapdis PRN Reason: For Nausea/Vomiting Referrals: AMBAR LOPEZ MD [Primary Care Provider] - Follow up tomorrow
[2017-08-03 03:03] VITALS: BP 157/82
--- NOTE | 2017-08-03 08:48 | EKG REPORT ---
SEVERITY:- ABNORMAL ECG - SINUS TACHYCARDIA LEFT AXIS DEVIATION LVH WITH SECONDARY REPOLARIZATION ABNORMALITY : Confirmed by: Randi Nagel MD 03-Aug-2017 08:47:36
== END 2017-08-03 04:08 | disposition home or self-care (01) ==
LOC: ER 21:41
DX: E11.65 Type 2 diabetes mellitus with hyperglycemia (principal); N39.0 Urinary tract infection, site not specified; G47.30 Sleep apnea, unspecified; R53.1 Weakness; R11.0 Nausea; Z87.891 Personal history of nicotine dependence
CPT/HCPCS: 93005; 99285; 36415; 87086; 82553; 82962; 82550; 83735; 84443; 85025; 80053; 81001; 84484; 82803; 83880; 71045; 93010; 94660; A9270 ×2; J0696; J2405; J7030; J1815

== ENCOUNTER → 2017-09-12 | Outpatient (CLI) | payer MEDICARE, MEDICAID ==
[2017-09-12 12:25] LABS: ABSOLUTE BASOPHILS # (AUTO) 0.1 10^3/uL (0.0-0.2); ABSOLUTE EOSINOPHILS # (AUTO) 0.4 10^3/uL (0.0-0.6); ABSOLUTE LYMPHOCYTES (AUTO) 3.4 10^3/uL (0.5-4.7); ABSOLUTE MONOCYTES (AUTO) 0.5 10^3/uL (0.1-1.4); ABSOLUTE NEUT (AUTO) 8.2 10^3/uL (1.7-8.2); BASOPHILS % (AUTO) 0.4 % (0-2); EOSINOPHILS % (AUTO) 3.3 % (0-6); HEMATOCRIT 34.1 % (36.0-47.0); HEMOGLOBIN 11.1 g/dL (12.0-15.5); LYMPHOCYTES % (AUTO) 27.3 % (13-45); MEAN CORPUSCULAR HEMOGLOBIN 26.5 pg (27.0-33.4); MEAN CORPUSCULAR HGB CONC 32.7 g/dL (32.0-36.0); MEAN CORPUSCULAR VOLUME 81 fl (80-97); MONOCYTES % (AUTO) 3.9 % (3-13); PLATELET COUNT 343 10^3/uL (150-450); RED BLOOD COUNT 4.21 10^6/uL (3.72-5.28); RED CELL DISTRIBUTION WIDTH 15.8 % (11.5-14.0); SEGMENTED NEUTROPHILS % (AUTO) 65.1 % (42-78); TOTAL CELLS COUNTED % (AUTO) 100 %; WHITE BLOOD COUNT 12.5 10^3/uL (4.0-10.5)
[2017-09-12 12:52] LABS: ALANINE AMINOTRANSFERASE 30 U/L (9-52); ALBUMIN 3.9 g/dL (3.5-5.0); ALKALINE PHOSPHATASE 99 U/L (38-126); ANION GAP 17 (5-19); ASPARTATE AMINO TRANSFERASE 27 U/L (14-36); BILIRUBIN,DIRECT 0.4 mg/dL (0.0-0.4); BILIRUBIN,TOTAL 0.4 mg/dL (0.2-1.3); BLOOD UREA NITROGEN 26 mg/dL (7-20); CALCIUM 9.4 mg/dL (8.4-10.2); CARBON DIOXIDE 30 mmol/L (22-30); CHLORIDE 93 mmol/L (98-107); GLUCOSE 222 mg/dL (75-110); POTASSIUM 4.7 mmol/L (3.6-5.0); SODIUM 139.6 mmol/L (137-145); TOTAL PROTEIN 7.6 g/dL (6.3-8.2)
[2017-09-12 13:08] LABS: ERYTHROCYTE SEDIMENTATION RATE 78 mm/hr (0-30)
[2017-09-12 13:21] LABS: C-REACTIVE PROTEIN 29.5 mg/L (<10.0)
== END ==
LOC: OD 11:30
PROVIDERS: ATTEND Physician Assistant
DX: I10 Essential (primary) hypertension (principal)
CPT/HCPCS: 36415; 80053; 84550; 85025; 85652; 86038; 86140; 86430

== ENCOUNTER → 2017-10-19 | Outpatient (CLI) | payer MEDICARE, MEDICAID ==
[2017-10-19 15:00] LABS: HEMATOCRIT 33.5 % (36.0-47.0); HEMOGLOBIN 10.9 g/dL (12.0-15.5); MEAN CORPUSCULAR HEMOGLOBIN 26.5 pg (27.0-33.4); MEAN CORPUSCULAR HGB CONC 32.5 g/dL (32.0-36.0); MEAN CORPUSCULAR VOLUME 81 fl (80-97); PLATELET COUNT 333 10^3/uL (150-450); RED BLOOD COUNT 4.12 10^6/uL (3.72-5.28); RED CELL DISTRIBUTION WIDTH 16.2 % (11.5-14.0); WHITE BLOOD COUNT 9.8 10^3/uL (4.0-10.5)
[2017-10-19 15:21] LABS: ALANINE AMINOTRANSFERASE 40 U/L (9-52); ALBUMIN 3.8 g/dL (3.5-5.0); ALKALINE PHOSPHATASE 69 U/L (38-126); ANION GAP 14 (5-19); ASPARTATE AMINO TRANSFERASE 34 U/L (14-36); BILIRUBIN,DIRECT 0.2 mg/dL (0.0-0.4); BILIRUBIN,TOTAL 0.2 mg/dL (0.2-1.3); BLOOD UREA NITROGEN 22 mg/dL (7-20); CALCIUM 9.4 mg/dL (8.4-10.2); CARBON DIOXIDE 27 mmol/L (22-30); CHLORIDE 101 mmol/L (98-107); GLUCOSE 95 mg/dL (75-110); IRON(TIBC) 44.5 ug/dL (37-170); POTASSIUM 5.5 mmol/L (3.6-5.0); SODIUM 141.5 mmol/L (137-145)
[2017-10-19 15:51] LABS: APPEARANCE,URINE CLEAR; BILIRUBIN,URINE NEGATIVE (NEGATIVE); COLOR,URINE YELLOW; GLUCOSE, URINE >=500 mg/dL (NEGATIVE); KETONES,URINE NEGATIVE (NEGATIVE); LEUKOCYTE ESTERASE,URINE NEGATIVE (NEGATIVE); NITRITE,URINE NEGATIVE (NEGATIVE); PROTEIN,URINE NEGATIVE (NEGATIVE); UROBILINOGEN,URINE NEGATIVE mg/dL (<2.0)
[2017-10-20 15:39] LABS: A/G RATIO 0.8 (0.7-1.7); ALBUMIN 2 3.2 g/dL (2.9-4.4); BETA GLOBULINS 1.2 g/dL (0.7-1.3); GAMMA GLOBULIN 1.4 g/dL (0.4-1.8); GLOBULIN TOTAL 3.8 g/dL (2.2-3.9); MONOCLONAL SPIKE Not Observed g/dL (Not Observed)
== END ==
LOC: OD 14:15
PROVIDERS: ATTEND Internal Medicine Nephrology
DX: I12.9 Hypertensive chronic kidney disease with stage 1 through stage 4 chronic kidney disease, or unspecified chronic kidney disease (principal); N18.3 Chronic kidney disease, stage 3 (moderate); E11.9 Type 2 diabetes mellitus without complications; R80.9 Proteinuria, unspecified; D64.9 Anemia, unspecified; E66.9 Obesity, unspecified
CPT/HCPCS: 36415; 80053; 81001; 82728; 83540; 83550; 84165; 84443; 85027

== ENCOUNTER → 2017-10-24 | Outpatient (CLI) | payer MEDICARE, MEDICAID | LOC: OD 15:30 | PROVIDERS: ATTEND Physician Assistant Medical | DX: E87.5 Hyperkalemia (principal) | CPT/HCPCS: 36415; 84132 ==

== ENCOUNTER 2017-11-01 12:11 | Day surgery (SDC) | payer MEDICARE, MEDICAID ==
[~2017-11-01 12:11] MED LIST: DIPHENHYDRAMINE HCL 50 MG/ML VIAL ONE; EPINEPHRINE INJ 1 MG/10 ML DISP.SYRIN ONE; FENTANYL CITRATE INJ/PF 100 MCG/2 ML AMPUL ONE; FLUMAZENIL INJ 0.5 MG/5 ML VIAL ONE; GLUCAGON,HUMAN RECOMB 1 MG INJ ONE; NALOXONE HCL INJ/PF 0.4 MG/1 ML SDV ONE; ONDANSETRON HCL INJ/PF 4 MG/2 ML SDV ONE
[2017-11-01] MEDS ORDERED: ONABOTULINUMTOXINA INJ/PF 100 UNIT SDV IM ONE (13:00)
[2017-11-01] MEDS: MIDAZOLAM 2 MG/2 ML INJ ONE ×2 (13:12→13:16)
--- NOTE | 2017-11-01 13:29 | Operative Report ---
Operative Report DATE OF SURGERY: 11/01/17 Operative Report: The risks benefits and alternatives of the procedure explained to the patient in detail and informed consent is obtained.A GIF Olympus video scope was inserted into the patient's mouth and hypopharynx, the esophagus is identified intubated and insufflated ,the scope was then advanced through the esophagus stomach and duodenum, retroflexion maneuver is done, the esophagus stomach and first and second portions of the duodenum examined PREOPERATIVE DIAGNOSIS: Nausea vomiting, gastroparesis POSTOPERATIVE DIAGNOSIS: Gastritis status post biopsy. Injection of Botox, at the pylorus 100 units in 5 cc for 20 U/cc injection OPERATION: EGD with submucosal injection. EGD with biopsy SURGEON: SHENG PIMENTEL ANESTHESIA: Moderate Sedation - 3 mg of Versed, 50 mcg of fentanyl. 4 mg of Zofran. Conscious sedation monitoring time 30 minutes. TISSUE REMOVED OR ALTERED: Gastric mucosal specimen COMPLICATIONS: None. ESTIMATED BLOOD LOSS: None. INTRAOPERATIVE FINDINGS: As noted above. PROCEDURE: Patient tolerated procedure well. No immediate postprocedure complications are noted. Patient discharged in good condition. Discharge date 11/01/2017. Discharge diet: Regular. Discharge activity: Regular. 2-3 week follow-up to discuss findings. Patient is instructed to call the office or proceed to the emergency room should there be any further problems or questions. We will wait on pathology.
[2017-11-01 14:41] VITALS: BP 127/73
== END 2017-11-01 14:35 | disposition home or self-care (01) ==
LOC: END 12:11
PROVIDERS: ATTEND Internal Medicine Gastroenterology
PROC: 0DB68ZX Excision of Stomach, Via Natural or Artificial Opening Endoscopic, Diagnostic (ICD-10-PCS; principal; 2017-11-01 12:30)
PROC: 3E0J8GC Introduction of Other Therapeutic Substance into Biliary and Pancreatic Tract, Via Natural or Artificial Opening Endoscopic (ICD-10-PCS; 2017-11-01 12:30)
DX: K31.84 Gastroparesis (principal); K29.50 Unspecified chronic gastritis without bleeding; E11.43 Type 2 diabetes mellitus with diabetic autonomic (poly)neuropathy; E11.22 Type 2 diabetes mellitus with diabetic chronic kidney disease; N18.3 Chronic kidney disease, stage 3 (moderate); I50.9 Heart failure, unspecified
CPT/HCPCS: 43236; 82962; 88305 ×2; J2250; J3010; J2405; J0585; 43239; J0171; J1200; J1610; J2310; J3490

== ENCOUNTER → 2017-12-19 | Outpatient (CLI) | payer MEDICARE, MEDICAID ==
[2017-12-19 11:23] LABS: HEMATOCRIT 33.3 % (36.0-47.0); HEMOGLOBIN 11.1 g/dL (12.0-15.5); MEAN CORPUSCULAR HEMOGLOBIN 27.8 pg (27.0-33.4); MEAN CORPUSCULAR HGB CONC 33.3 g/dL (32.0-36.0); MEAN CORPUSCULAR VOLUME 83 fl (80-97); PLATELET COUNT 323 10^3/uL (150-450); RED BLOOD COUNT 3.99 10^6/uL (3.72-5.28); RED CELL DISTRIBUTION WIDTH 15.6 % (11.5-14.0); WHITE BLOOD COUNT 8.7 10^3/uL (4.0-10.5)
[2017-12-19 11:41] LABS: APPEARANCE,URINE CLEAR; BILIRUBIN,URINE NEGATIVE (NEGATIVE); COLOR,URINE YELLOW; GLUCOSE, URINE >=500 mg/dL (NEGATIVE); KETONES,URINE NEGATIVE (NEGATIVE); LEUKOCYTE ESTERASE,URINE NEGATIVE (NEGATIVE); NITRITE,URINE NEGATIVE (NEGATIVE); PROTEIN,URINE NEGATIVE (NEGATIVE); URINE SPECIFIC GRAVITY 1.013; UROBILINOGEN,URINE NEGATIVE mg/dL (<2.0)
[2017-12-19 12:06] LABS: ANION GAP 15 (5-19); BLOOD UREA NITROGEN 35 mg/dL (7-20); CARBON DIOXIDE 29 mmol/L (22-30); CHLORIDE 98 mmol/L (98-107); GLUCOSE 174 mg/dL (75-110); POTASSIUM 5.1 mmol/L (3.6-5.0); SODIUM 141.5 mmol/L (137-145)
[2017-12-20 10:38] LABS: CREATININE URINE 46.4 mg/dL (Not Estab.); MICROALBUMIN URINE 14.5 ug/mL (Not Estab.)
== END ==
LOC: OD 10:09
PROVIDERS: ATTEND Internal Medicine Nephrology
DX: I12.9 Hypertensive chronic kidney disease with stage 1 through stage 4 chronic kidney disease, or unspecified chronic kidney disease (principal); N18.3 Chronic kidney disease, stage 3 (moderate); R80.9 Proteinuria, unspecified; I50.9 Heart failure, unspecified; D64.9 Anemia, unspecified
CPT/HCPCS: 36415; 80048; 81001; 82043; 82570; 84550; 85027

== ENCOUNTER → 2018-01-12 | Outpatient (CLI) | payer MEDICARE, MEDICAID ==
--- NOTE | 2018-01-12 10:06 | RADIOLOGY REPORT (SQ) ---
EXAM DESCRIPTION: CT ABD/PELVIS ORAL ONLY COMPLETED DATE/TIME: 01/12/2018 9:33 am REASON FOR STUDY: LEFT UPPER QUADRANT ABDOMINAL SWELLING, MASS AND LUMP R19.02 LEFT UPPER QUADRANT ABDOMINAL SWELLING, MASS AND LUMP COMPARISON: CT ABDOMEN PELVIS 04/15/2017, 08/05/2016, 01/30/2016 TECHNIQUE: CT scan of the abdomen and pelvis performed without intravenous or oral contrast. Images reviewed with lung, soft tissue, and bone windows. Reconstructed coronal and sagittal MPR images revi ewed. All images stored on PACS. All CT scanners at this facility use dose modulation, iterative reconstruction, and/or weight based d osing when appropriate to reduce radiation dose to as low as reasonably achievable (ALARA). [facility]: Dose Right [facility]: CareDose [facility]: Dose Right [facility]: Teradose 4D [facility]: [employer] RADIATION DOSE: CT Rad equipment meets quality standard of care and radiation dose reduction techniq ues were employed. CTDIvol: 31.0 mGy. DLP: 1796 mGy-cm.mGy. LIMITATIONS: None. FINDINGS: Along the left upper quadrant, a 10 x 9 cm area of skin thickening and subcutaneous edema is present along the anterior abdominal wall fat. No abscess. No hernia. This most likely represen ts an area of cellulitis. LOWER CHEST: Lung bases are clear. No cardiomegaly. Left coronary stents are present. NON-CONTRASTED LIVER, SPLEEN, ADRENALS: Evaluation limited by lack of IV contrast. No identified sign ificant masses. PANCREAS: No masses. No peripancreatic inflammatory changes. GALLBLADDER: Surgically absent RIGHT KIDNEY AND URETER: Old right nephrectomy LEFT KIDNEY AND URETER: No suspicious masses. Assessment limited by lack of IV contrast. No signifi cant calcifications. No hydronephrosis or hydroureter. AORTA AND RETROPERITONEUM: No aneurysm. No retroperitoneal masses or adenopathy. BOWEL AND PERITONEAL CAVITY: Patient drank oral contrast. No bowel obstruction. No free intraperito chance air or fluid. There is a 10 cm abdominal wall dehiscence between the rectus sheath and right tr ansversus abdominis/oblique muscles. The right colon and distal small bowel is in the hernia sac, wi thout evidence of bowel obstruction. This is similar compared to 04/15/2017. APPENDIX: Normal. PELVIS, BLADDER:No abnormal masses. No free fluid. Bladder normal. Normal size female pelvic organs. BONES: Degenerative disc changes most pronounced at L3-4 OTHER: No other significant finding. IMPRESSION: Left upper quadrant anterior abdominal wall skin thickening and stranding in the subcuta neous fat worrisome for a focal area of cellulitis. No left upper quadrant abdominal wall defect/ he rnia is present. Large right lateral abdominal wall hernia containing nonobstructed colon and distal small bowel Post cholecystectomy. Old right nephrectomy. COMMENT: Quality ID # [id number]: Final reports with documentation of one or more dose reduction techniques (e.g., Automated exposure control, adjustment of the mA and/or kV according to patient size, use of iterative reconstruction technique) TECHNICAL DOCUMENTATION: JOB ID: [id number] [employer]- All Rights Reserved Reading location - IP/workstation name: [email or web address]
== END ==
LOC: RAD 08:37
PROVIDERS: ATTEND Surgery
DX: K43.9 Ventral hernia without obstruction or gangrene (principal)
CPT/HCPCS: 74176; 82565

== ENCOUNTER 2018-02-01 14:48 | Emergency (ER) | payer MEDICARE, MEDICAID ==
[2018-02-01 15:02] VITALS: BP 111/59
[2018-02-01] MEDS ORDERED: OXYCODONE-ACETAMINOPHEN 5-325 MG TABLET PO ONE (15:23)
--- NOTE | 2018-02-01 15:31 | ER Document Report ---
ED Fall - General Chief Complaint: Fall Injury Stated Complaint: FALL INJURY Time Seen by Provider: 02/01/18 15:17 Notes: pt is a 57 yo female with hx of DM with severe diabetic neuropathy, complains of right hip pain. Patient reports that her right leg gave out and she fell in the kitchen. She fell over a chair. She hit her right hip on the kitchen floor. He also reports that she struck the right side of her head on 1 of the chairs. There was no loss of consciousness. TRAVEL OUTSIDE OF THE [place] IN LAST 30 DAYS: No - HPI Occurred: Just prior to arrival Where: Home Context: Slipped, Fell from standing Associated symptoms: None Location of injury/pain: Hip - Right - Related data Allergies/Adverse Reactions: sulfamethoxazole [From Bactrim] Allergy (Severe, Verified 02/01/18 14:50) rash trimethoprim [From Bactrim] Allergy (Severe, Verified 02/01/18 14:50) rash Penicillins Allergy (Unknown, Verified 02/01/18 14:50) Past Medical History - General Information source: Patient - Social History Smoking Status: Never Smoker Chew tobacco use (# tins/day): No Frequency of alcohol use: None Drug Abuse: None Family History: Reviewed & Not Pertinent Patient has suicidal ideation: No Patient has homicidal ideation: No - Past Medical History Cardiac Medical History: Reports: Hx Congestive Heart Failure, Hx Coronary Artery Disease, Hx Heart Attack - x2, Hx Hypertension Denies: Hx DVT Pulmonary Medical History: Reports: Hx Pneumonia Denies: Hx Asthma, Hx Bronchitis, Hx COPD Neurological Medical History: Reports: Hx Cerebrovascular Accident - NO DAMAGE. Denies: Hx Seizures Endocrine Medical History: Reports: Hx Diabetes Mellitus Type 1, Hx Diabetes Mellitus Type 2 Renal/ Medical History: Reports: Hx End Stage Renal Disease. Denies: Hx Peritoneal Dialysis Malignancy Medical History: Reports: Hx Renal (Kidney) Cancer - s/p right nephrectomy September, Musculoskeletal Medical History: Reports Hx Arthritis - gout Psychiatric Medical History: Reports: Hx Depression Past Surgical History: Reports: Hx Cardiac Catheterization - stent placement, Hx Cardiac Surgery - stents, Hx Cholecystectomy, Hx Coronary Stent - 2013, Hx Kidney (Renal Surgery) - right nephrectomy, Hx Orthopedic Surgery - left hand, left great toe amputation. Denies: Hx Hysterectomy - Immunizations Hx Diphtheria, Pertussis, Tetanus Vaccination: Yes Hx Pneumococcal Vaccination: 07/11/13 Review of Systems - Review of Systems Constitutional: No symptoms reported EENT: No symptoms reported Cardiovascular: No symptoms reported Respiratory: No symptoms reported Gastrointestinal: No symptoms reported Genitourinary: No symptoms reported Female Genitourinary: No symptoms reported Musculoskeletal: See HPI Skin: No symptoms reported Hematologic/Lymphatic: No symptoms reported Neurological/Psychological: No symptoms reported Physical Exam - Vital signs Vitals: Temp Pulse Resp BP Pulse Ox 98.1 F 80 14 111/59 L 93 02/01/18 14:58 02/01/18 14:58 02/01/18 14:58 02/01/18 14:58 02/01/18 14:58 Interpretation: Normal - General General appearance: Appears well, Alert - HEENT Head: Normocephalic, Atraumatic Eyes: Normal Pupils: PERRL - Respiratory Respiratory status: No respiratory distress Chest status: Nontender Breath sounds: Normal Chest palpation: Normal - Cardiovascular Rhythm: Regular Heart sounds: Normal auscultation Murmur: No - Abdominal Inspection: Normal Distension: No distension Bowel sounds: Normal Tenderness: Nontender Organomegaly: No organomegaly - Back Back: Tender - Lumbar spinal and paraspinal tenderness. - Extremities General upper extremity: Normal inspection, Nontender, Normal color, Normal ROM , Normal temperature General lower extremity: Normal color, Normal temperature. No: Shweta's sign Hip: Tender - Positive posterior iliac tenderness. - Neurological Neuro grossly intact: Yes Cognition: Normal Orientation: AAOx4 Whitakers Coma Scale Eye Opening: Spontaneous Whitakers Coma Scale Verbal: Oriented Whitakers Coma Scale Motor: Obeys Commands Whitakers Coma Scale Total: 15 Speech: Normal Motor strength normal: LUE, RUE, LLE, RLE Sensory: Normal - Psychological Associated symptoms: Normal affect, Normal mood - Skin Skin Temperature: Warm Skin Moisture: Dry Skin Color: Normal Course - Re-evaluation Re-evalutation: 02/01/18 16:11 Hip x-ray negative for acute fracture. Head CT negative. These results were reviewed with the patient. Patient has pain medication at home which she is prescribed by pain management. Patient showing no signs of spinal cord compression, cauda equina, infection, aneurysm or other serious he allergy. Patient is able to walk steadily and independently. Home care, primary care follow-up in ED return precautions were discussed with patient. Patient is agreeable with plan is stable for discharge - Vital Signs Vital signs: Temp Pulse Resp BP Pulse Ox 98.1 F 80 14 111/59 L 93 02/01/18 14:58 02/01/18 14:58 02/01/18 14:58 02/01/18 14:58 02/01/18 14:58 Discharge - Discharge Clinical Impression: Contusion of right hip Qualifiers: Encounter type: initial encounter Qualified Code(s): S70.01XA - Contusion of right hip, initial encounter Head injury Qualifiers: Encounter type: initial encounter Qualified Code(s): S09.90XA - Unspecified injury of head, initial encounter Condition: Stable Disposition: HOME, SELF-CARE Instructions: Contusion ([facility]), Head Injury Precautions ([facility]), Ice Packs ([facility]) Additional Instructions: Your x-rays and head CT were negative today Take your pain medication as prescribed by her primary care Apply ice to the sore areas Follow-up with your primary care if pain persists Return to ED for any worsening Referrals: BRENDAN SPENCER MD [ACTIVE STAFF] - Follow up as needed
--- NOTE | 2018-02-01 16:22 | RADIOLOGY REPORT (SQ) ---
EXAM DESCRIPTION: HIP RIGHT AP/LATERAL COMPLETED DATE/TIME: 02/01/2018 4:11 pm REASON FOR STUDY: right hip pain, fell COMPARISON: None. NUMBER OF VIEWS: Two views. TECHNIQUE: AP pelvis and additional frog-leg view of the right hip. LIMITATIONS: None. FINDINGS: MINERALIZATION: Normal. RIGHT HIP: No fracture or dislocation. No worrisome bone lesions. LEFT HIP: No fracture or dislocation. No worrisome bone lesions. PUBIS AND ISCHIUM: No fracture. PELVIS: No fracture. SACRUM: No fracture or dislocation. No worrisome bone lesions. LOWER LUMBAR SPINE: No fracture or dislocation. No worrisome bone lesions. No significant disc disea se. SOFT TISSUES: No findings. OTHER: No other significant finding. IMPRESSION: NEGATIVE STUDY OF THE RIGHT HIP. NO RADIOGRAPHIC EVIDENCE OF ACUTE INJURY. TECHNICAL DOCUMENTATION: JOB ID: [id number] [facility]- All Rights Reserved Reading location - IP/workstation name: [email or web address]
--- NOTE | 2018-02-01 16:28 | RADIOLOGY REPORT (SQ) ---
EXAM DESCRIPTION: CT HEAD WITHOUT COMPLETED DATE/TIME: 02/01/2018 3:57 pm REASON FOR STUDY: trauma, fell, hit head on chair COMPARISON: April 2017 TECHNIQUE: Axial images acquired through the brain without intravenous contrast. Images reviewed wi th bone, brain and subdural windows. Additional sagittal and coronal reconstructions were generated. Images stored on PACS. All CT scanners at this facility use dose modulation, iterative reconstruction, and/or weight based d osing when appropriate to reduce radiation dose to as low as reasonably achievable (ALARA). [facility]: Dose Right [facility]: CareDose [facility]: Dose Right [facility]: Teradose 4D [facility]: ioBridge RADIATION DOSE: CT Rad equipment meets quality standard of care and radiation dose reduction techniq ues were employed. CTDIvol: 53.2 mGy. DLP: 1044 mGy-cm. mGy. LIMITATIONS: None. FINDINGS: VENTRICLES: Normal size and contour. CEREBRUM: No masses. No hemorrhage. No midline shift. No evidence for acute infarction. Normal gra y/white matter differentiation. No areas of low density in the white matter. CEREBELLUM: No masses. No hemorrhage. No alteration of density. No evidence for acute infarction. EXTRAAXIAL SPACES: No fluid collections. No masses. ORBITS AND GLOBE: No intra- or extraconal masses. Normal contour of globe without masses. CALVARIUM: No fracture. PARANASAL SINUSES: No fluid or mucosal thickening. SOFT TISSUES: No mass or hematoma. OTHER: No other significant finding. IMPRESSION: NORMAL BRAIN CT WITHOUT CONTRAST. EVIDENCE OF ACUTE STROKE: NO. COMMENT: Quality ID # [id number]: Final reports with documentation of one or more dose reduction techniques (e.g., Automated exposure control, adjustment of the mA and/or kV according to patient size, use of iterative reconstruction technique) TECHNICAL DOCUMENTATION: JOB ID: [id number] [employer]- All Rights Reserved Reading location - IP/workstation name: [email or web address]
== END 2018-02-01 16:48 | disposition home or self-care (01) ==
LOC: ER 14:48
DX: S70.01XA Contusion of right hip, initial encounter (principal); S09.90XA Unspecified injury of head, initial encounter; W17.89XA Other fall from one level to another, initial encounter; Y92.000 Kitchen of unspecified non-institutional (private) residence as the place of occurrence of the external cause; E11.40 Type 2 diabetes mellitus with diabetic neuropathy, unspecified; I25.10 Atherosclerotic heart disease of native coronary artery without angina pectoris; I10 Essential (primary) hypertension; Z90.5 Acquired absence of kidney; Z85.528 Personal history of other malignant neoplasm of kidney; Z88.1 Allergy status to other antibiotic agents; Z88.0 Allergy status to penicillin
CPT/HCPCS: 99284; 73502; 70450; A9270

== ENCOUNTER 2018-02-17 21:21 | Inpatient (IN) | payer MEDICARE, MEDICAID ==
[2018-02-17 22:16] LABS: VENOUS BLOOD HCO3 20.5 mmol/L (20-32); VENOUS BLOOD PCO2 52.7 mmHg (35-63); VENOUS BLOOD PH 7.21 (7.30-7.42)
[2018-02-17 22:24] LABS: ALANINE AMINOTRANSFERASE 36 U/L (9-52); ALBUMIN 3.3 g/dL (3.5-5.0); ALKALINE PHOSPHATASE 78 U/L (38-126); ANION GAP 17 (5-19); ASPARTATE AMINO TRANSFERASE 48 U/L (14-36); BILIRUBIN,DIRECT 0.4 mg/dL (0.0-0.4); BILIRUBIN,TOTAL 0.4 mg/dL (0.2-1.3); BLOOD UREA NITROGEN 58 mg/dL (7-20); CALCIUM 8.2 mg/dL (8.4-10.2); CARBON DIOXIDE 17 mmol/L (22-30); CHLORIDE 101 mmol/L (98-107); CREATINE KINASE 99 U/L (30-135); GLUCOSE 90 mg/dL (75-110); POTASSIUM 5.9 mmol/L (3.6-5.0); SODIUM 135.1 mmol/L (137-145); TOTAL PROTEIN 6.6 g/dL (6.3-8.2)
[2018-02-17] MEDS ORDERED: NORMAL SALINE 1000 ML 1,000 ML IV ONE (22:30)
[2018-02-17] MEDS ORDERED: ERTAPENEM SODIUM INJ 1 GM VIAL IV ONE (22:31)
[2018-02-17 22:43] LABS: CREATINE KINASE MB 3.18 ng/mL (<4.55)
[2018-02-17 22:44] LABS: TROPONIN I < 0.012 ng/mL
[2018-02-17 23:07] LABS: ABSOLUTE BASOPHILS # (AUTO) 0.1 10^3/uL (0.0-0.2); ABSOLUTE EOSINOPHILS # (AUTO) 0.7 10^3/uL (0.0-0.6); ABSOLUTE MONOCYTES (AUTO) 0.8 10^3/uL (0.1-1.4); ABSOLUTE NEUT (AUTO) 8.7 10^3/uL (1.7-8.2); BASOPHILS % (AUTO) 0.6 % (0-2); HEMATOCRIT 26.9 % (36.0-47.0); HEMOGLOBIN 8.9 g/dL (12.0-15.5); LYMPHOCYTES % (AUTO) 27.9 % (13-45); MEAN CORPUSCULAR HEMOGLOBIN 28.3 pg (27.0-33.4); MEAN CORPUSCULAR HGB CONC 32.9 g/dL (32.0-36.0); MEAN CORPUSCULAR VOLUME 86 fl (80-97); MONOCYTES % (AUTO) 5.5 % (3-13); PLATELET COUNT 262 10^3/uL (150-450); RED BLOOD COUNT 3.13 10^6/uL (3.72-5.28); RED CELL DISTRIBUTION WIDTH 14.8 % (11.5-14.0); TOTAL CELLS COUNTED % (AUTO) 100 %; WHITE BLOOD COUNT 14.2 10^3/uL (4.0-10.5)
--- NOTE | 2018-02-18 00:05 | EKG REPORT ---
SEVERITY:- ABNORMAL ECG - SINUS RHYTHM FIRST DEGREE AV BLOCK PROBABLE LEFT VENTRICULAR HYPERTROPHY BORDERLINE PROLONGED QT INTERVAL : Confirmed by: Randi Nagel MD 18-Feb-2018 00:04:39
--- NOTE | 2018-02-18 00:26 | RADIOLOGY REPORT (SQ) ---
EXAM DESCRIPTION: CT CHEST WITHOUT IV CONTRAST COMPLETED DATE/TME: 02/17/2018 22:30 CLINICAL HISTORY: 57 years, Female, sepsis COMPARISON: None. TECHNIQUE: Contiguous axial CT images of the chest without administration of IV contrast. Sagittal and coronal reformats were obtained.This exam was performed according to our departmental dose-optimization program, which includes automated exposure control, adjustment of the mA and/or kV according to patient size and/or use of iterative reconstruction technique. Images stored on PACS. All CT scanners at this facility use dose modulation, iterative reconstruction, and/or weight based dosing when appropriate to reduce radiation dose to as low as reasonably achievable (ALARA). [facility]: Dose Right [facility]: CareDose [facility]: Dose Right [facility]: [employer] 4D [facility]: eReplacements LIMITATIONS: None. FINDINGS: Heart: No pericardial effusion. Thoracic aorta: Nonaneurysmal. Scattered calcifications at the aortic arch and descending thoracic aorta. Mediastinum: No pathologic sized middle mediastinal lymphadenopathy. Lungs: No focal lung consolidation. No pleural effusion. No pneumothorax. Nonspecific 1 cm posterior left lower lobe cystic focus. Tracheobronchial tree: Patent without intraluminal filling defect. Bones: No acute finding Soft tissues: Within normal limits Partially seen thyroid gland: Within normal limits IMPRESSION: No acute intrathoracic finding. TECHNICAL DOCUMENTATION: Quality ID # [id number]: Final reports with documentation of one or more dose reduction techniques (e.g., Automated exposure control, adjustment of the mA and/or kV according to patient size, use of iterative reconstruction technique) 2010 [employer]- All Rights Reserved EXAM DESCRIPTION: CT ABDOMEN AND PELVIS WITHOUT IV CONTRAST COMPLETED DATE/TME: 02/17/2018 22:30 CLINICAL HISTORY: 57 years, Female, sepsis COMPARISON: None. TECHNIQUE: Contiguous axial images of the abdomen and pelvis were obtained without IV contrast followed by reconstruction images. This exam was performed according to our departmental dose-optimization program, which includes automated exposure control, adjustment of the mA and/or kV according to patient size and/or use of iterative reconstruction technique. Images stored on PACS. All CT scanners at this facility use dose modulation, iterative reconstruction, and/or weight based dosing when appropriate to reduce radiation dose to as low as reasonably achievable (ALARA). [facility]: Dose Right [facility]: CareDose [facility]: Dose Right [facility]: Teradose 4D [facility]: eReplacements LIMITATIONS: None. FINDINGS: Liver: Within normal limits Gallbladder/Bile ducts: Cholecystectomy clips are seen in gallbladder fossa. No intra or extrahepatic duct dilatation. Spleen: Within normal limits Pancreas: Within normal limits Adrenal glands: Within normal limits Kidneys/Bladder: Again noted, absent right kidney. No left renal stones or hydronephrosis. Contracted bladder without significant findings. GI tract: Stable appearance of a large right abdominal wall hernia with herniated cecum, portions of the ascending colon and multiple small bowel loops. Abdominal wall defect measures 9.2 cm AP x 8.6 cm CC. The most lateral aspect of the hernia sac is outside field of view. The visualized portions of the hernia sac show no evidence of free fluid or bowel dilatation. No evidence of obstruction or active inflammatory process. No intra-abdominal collection. Uterus/adnexa: Anteverted uterus. No suspicious adnexal lesion. Vascular structures: Scattered vascular calcifications Free fluid: No free fluid. Lymph nodes: No radiographically enlarged lymph nodes Soft tissues: Large right abdominal wall hernia as described above. Incidentally noted left obturator externus intramuscular lipoma measuring 3 cm. Bones: No acute osseous finding. Mild degenerative changes at L3-L4. IMPRESSION: 1. No acute intra-abdominal finding 2. Stable large right abdominal wall hernia as described. 3. Absent right kidney TECHNICAL DOCUMENTATION: Quality ID # [id number]: Final reports with documentation of one or more dose reduction techniques (e.g., Automated exposure control, adjustment of the mA and/or kV according to patient size, use of iterative reconstruction technique) 2010 [employer]- All Rights Reserved
[2018-02-18 00:29] LABS: APPEARANCE,URINE CLEAR; BILIRUBIN,URINE NEGATIVE (NEGATIVE); COLOR,URINE YELLOW; GLUCOSE, URINE >=500 mg/dL (NEGATIVE); KETONES,URINE NEGATIVE (NEGATIVE); LEUKOCYTE ESTERASE,URINE NEGATIVE (NEGATIVE); NITRITE,URINE NEGATIVE (NEGATIVE); PROTEIN,URINE NEGATIVE (NEGATIVE); URINE SPECIFIC GRAVITY 1.011; UROBILINOGEN,URINE NEGATIVE mg/dL (<2.0)
[2018-02-18] MEDS ORDERED: NORMAL SALINE 1000 ML 1,000 ML IV ONE ×2 (01:09→01:44)
--- NOTE | 2018-02-18 01:19 | ER Document Report ---
ED General - General Chief Complaint: Low Blood Pressure Stated Complaint: GENERAL WEAKNESS Time Seen by Provider: 02/17/18 22:18 TRAVEL OUTSIDE OF THE [place] IN LAST 30 DAYS: No - HPI Patient complains to provider of: Generalized weakness low blood pressure Notes: There is coming in for generalized weakness low blood pressure. Upon my evaluation patient with oxygen patient states she wears oxygen at home also wears CPAP. Patient states feeling unwell for the last 24 hours. Patient that she has been compliant with all her medications including her blood pressure medications and her pain medication. Patient denies any changes to her medications states no fevers at home no sweats. Patient also denies any chest pain and no change in her abdominal pain. Patient with chronic abdominal pain due to the large hernia. Patient denies any nausea vomiting or diarrhea. - Related Data Allergies/Adverse Reactions: sulfamethoxazole [From Bactrim] Allergy (Severe, Verified 02/01/18 14:50) rash trimethoprim [From Bactrim] Allergy (Severe, Verified 02/01/18 14:50) rash Penicillins Allergy (Unknown, Verified 02/01/18 14:50) Past Medical History - Social History Smoking Status: Unknown if Ever Smoked Chew tobacco use (# tins/day): No Frequency of alcohol use: None Drug Abuse: None Family History: Reviewed & Not Pertinent Patient has suicidal ideation: No Patient has homicidal ideation: No - Past Medical History Cardiac Medical History: Reports: Hx Congestive Heart Failure, Hx Coronary Artery Disease, Hx Heart Attack - x2, Hx Hypertension Denies: Hx DVT Pulmonary Medical History: Reports: Hx Pneumonia Denies: Hx Asthma, Hx Bronchitis, Hx COPD Neurological Medical History: Reports: Hx Cerebrovascular Accident - NO DAMAGE. Denies: Hx Seizures Endocrine Medical History: Reports: Hx Diabetes Mellitus Type 1, Hx Diabetes Mellitus Type 2 Renal/ Medical History: Reports: Hx End Stage Renal Disease. Denies: Hx Peritoneal Dialysis Malignancy Medical History: Reports: Hx Renal (Kidney) Cancer - s/p right nephrectomy September, Musculoskeletal Medical History: Reports Hx Arthritis - gout Psychiatric Medical History: Reports: Hx Depression Past Surgical History: Reports: Hx Cardiac Catheterization - stent placement, Hx Cardiac Surgery - stents, Hx Cholecystectomy, Hx Coronary Stent - 2013, Hx Kidney (Renal Surgery) - right nephrectomy, Hx Orthopedic Surgery - left hand, left great toe amputation. Denies: Hx Hysterectomy - Immunizations Hx Diphtheria, Pertussis, Tetanus Vaccination: Yes Hx Pneumococcal Vaccination: 07/11/13 Review of Systems - Review of Systems Constitutional: Weakness - Hypertensive EENT: No symptoms reported Cardiovascular: No symptoms reported Respiratory: No symptoms reported Gastrointestinal: No symptoms reported Genitourinary: No symptoms reported Female Genitourinary: No symptoms reported Musculoskeletal: No symptoms reported Skin: No symptoms reported Hematologic/Lymphatic: No symptoms reported Neurological/Psychological: No symptoms reported Physical Exam - Vital signs Vitals: Resp BP Pulse Ox 18 69/48 L 97 02/17/18 21:27 02/17/18 21:27 02/17/18 21:27 Interpretation: Hypotensive - General General appearance: Appears well, Alert - HEENT Head: Normocephalic, Atraumatic Eyes: Normal Pupils: PERRL - Respiratory Respiratory status: No respiratory distress Chest status: Nontender Breath sounds: Normal Chest palpation: Normal - Cardiovascular Rhythm: Regular Heart sounds: Normal auscultation Murmur: No - Abdominal Inspection: Normal, Morbidly Obese Distension: No distension Bowel sounds: Normal Tenderness: Tender - Diffusely mildly tender near patient does have a large hernia sac that is soft no skin color with same consistency of tenderness as the rest of the abdomen. Organomegaly: No organomegaly - Back Back: Normal, Nontender - Extremities General upper extremity: Normal inspection, Nontender, Normal color, Normal ROM , Normal temperature General lower extremity: Normal inspection, Nontender, Normal color, Normal ROM , Normal temperature, Normal weight bearing. No: Shweta's sign - Neurological Neuro grossly intact: Yes Cognition: Normal Orientation: AAOx4 Melody Coma Scale Eye Opening: Spontaneous Melody Coma Scale Verbal: Oriented Melody Coma Scale Motor: Obeys Commands Melody Coma Scale Total: 15 Speech: Normal Motor strength normal: LUE, RUE, LLE, RLE Sensory: Normal - Psychological Associated symptoms: Normal affect, Normal mood - Skin Skin Temperature: Warm Skin Moisture: Dry Skin Color: Normal Notes: Multiple small abrasions throughout the body no signs of any abrasions or infected Course - Re-evaluation Re-evalutation: 02/18/18 05:32 Patient did not respond to 2 L normal saline for her blood pressure central line placed and Levophed started. Patient did undergo a CT scan of her chest abdomen pelvis with no acute findings. Patient's lab values that showed anemia with leukocytosis elevated lactic acid acute on chronic renal failure and acidosis. The VBG did not show any signs of hypercapnia. Urinalysis also did not show any signs of infection. As I do not have a source of it initially started patient on Invanz. The discussed with the surgical team states that at this time and agreed assessment that may be possibly due to underlying sepsis unknown source at this time but agrees at this time CT scan does not show any acute abdominal pathology. They will continue to follow. Discussed with Dr. Browne covering for PCP agrees admission to ICU. Laboratory values that showed increase in the patient's potassium. This was treated. Patient also was placed on BiPAP and a repeat the patient's ABG because of some somnolence showing now more hypercapnia and acidosis. - Vital Signs Vital signs: Temp Pulse Resp BP Pulse Ox 98.1 F 19 115/63 93 02/17/18 21:49 02/18/18 05:01 02/18/18 05:01 02/18/18 04:45 - Laboratory Result Diagrams: 02/17/18 22:50 02/18/18 03:07 Laboratory results interpreted by me: 02/17/18 02/17/18 02/17/18 21:29 21:29 21:29 WBC RBC Hgb Hct RDW Absolute Neutrophils Absolute Eosinophils Carbonic Acid ABG pH ABG pCO2 ABG O2 Saturation VBG pH 7.21 L Sodium 135.1 L Potassium 5.9 H Carbon Dioxide 17 L BUN 58 H Creatinine 3.93 H Est GFR ( Amer) 14 L Est GFR (Non-Af Amer) 12 L Lactic Acid 4.7 H Calcium 8.2 L AST 48 H NT-Pro-B Natriuret Pep Albumin 3.3 L Urine Glucose (UA) 02/17/18 02/17/18 02/17/18 21:29 22:50 23:15 WBC 14.2 H RBC 3.13 L Hgb 8.9 L Hct 26.9 L RDW 14.8 H Absolute Neutrophils 8.7 H Absolute Eosinophils 0.7 H Carbonic Acid ABG pH ABG pCO2 ABG O2 Saturation VBG pH Sodium Potassium Carbon Dioxide BUN Creatinine Est GFR ( Amer) Est GFR (Non-Af Amer) Lactic Acid Calcium AST NT-Pro-B Natriuret Pep 1180 H Albumin Urine Glucose (UA) >=500 H 02/18/18 01:52 WBC RBC Hgb Hct RDW Absolute Neutrophils Absolute Eosinophils Carbonic Acid 1.85 H ABG pH 7.18 L* ABG pCO2 61.3 H ABG O2 Saturation 92.9 L VBG pH Sodium Potassium Carbon Dioxide BUN Creatinine Est GFR ( Amer) Est GFR (Non-Af Amer) Lactic Acid Calcium AST NT-Pro-B Natriuret Pep Albumin Urine Glucose (UA) Procedures - Central Line Left Internal jugular Consent obtained: Yes Central line pre-insertion: Betadine prep applied, Chloraprep applied Central line lumen type: Triple Anesthetic type: 1% Lidocaine mL's of anesthesia: 2 Ultrasound guided: Yes CM at insertion site: 20 Line secured with sutures: Yes Central line post-insertion: Blood return from lumens, Biopatch applied, Sutured , Sterile dressing applied, Position confirmed w/ CXR Number of attempts: 1 Complications: No Critical Care Note - Critical Care Note Total time excluding time spent on procedures (mins): 90 Comments: Multiple evaluations for consistent hypotension underlying sepsis without source Discharge - Discharge Clinical Impression: Sepsis, Chronic CHF (congestive heart failure), Chronic kidney disease (CKD) stage G4/A1, severely decreased glomerular filtration rate (GFR) between 15-29 mL/min/1.73 square meter and albuminuria creatinine ratio less than 30 mg/g, Obstructive sleep apnea of adult, Morbid obesity with BMI of 45.0-49.9, adult, Hyperkalemia, Respiratory acidosis with hypercapnia Condition: Fair Disposition: ADMITTED INPATIENT Admitting Provider: Popeye Browne Unit Admitted: ICU
[2018-02-18 01:30] LABS: URINE AMPHETAMINES SCREEN NEGATIVE; URINE BARBITURATES SCREEN NEGATIVE; URINE BENZODIAZEPINES SCREEN UNCONFIRMED POSITIVE; URINE COCAINE SCREEN NEGATIVE; URINE MARIJUANA (THC) SCREEN NEGATIVE; URINE METHADONE SCREEN NEGATIVE; URINE PHENCYCLIDINE SCREEN NEGATIVE
[2018-02-18] MEDS ORDERED: NOREPINEPHRINE BITARTRATE INJ/PF 4 MG/4 ML SDV IV ONE (01:48)
--- NOTE | 2018-02-18 02:05 | ER Document Report ---
ED General - General Chief Complaint: Low Blood Pressure Stated Complaint: GENERAL WEAKNESS Time Seen by Provider: 02/17/18 22:18 TRAVEL OUTSIDE OF THE [place] IN LAST 30 DAYS: No - Related Data Allergies/Adverse Reactions: sulfamethoxazole [From Bactrim] Allergy (Severe, Verified 02/01/18 14:50) rash trimethoprim [From Bactrim] Allergy (Severe, Verified 02/01/18 14:50) rash Penicillins Allergy (Unknown, Verified 02/01/18 14:50) Past Medical History - Social History Smoking Status: Unknown if Ever Smoked Chew tobacco use (# tins/day): No Frequency of alcohol use: None Drug Abuse: None Family History: Reviewed & Not Pertinent Patient has suicidal ideation: No Patient has homicidal ideation: No - Past Medical History Cardiac Medical History: Reports: Hx Congestive Heart Failure, Hx Coronary Artery Disease, Hx Heart Attack - x2, Hx Hypertension Denies: Hx DVT Pulmonary Medical History: Reports: Hx Pneumonia Denies: Hx Asthma, Hx Bronchitis, Hx COPD Neurological Medical History: Reports: Hx Cerebrovascular Accident - NO DAMAGE. Denies: Hx Seizures Endocrine Medical History: Reports: Hx Diabetes Mellitus Type 1, Hx Diabetes Mellitus Type 2 Renal/ Medical History: Reports: Hx End Stage Renal Disease. Denies: Hx Peritoneal Dialysis Malignancy Medical History: Reports: Hx Renal (Kidney) Cancer - s/p right nephrectomy September, Musculoskeletal Medical History: Reports Hx Arthritis - gout Psychiatric Medical History: Reports: Hx Depression Past Surgical History: Reports: Hx Cardiac Catheterization - stent placement, Hx Cardiac Surgery - stents, Hx Cholecystectomy, Hx Coronary Stent - 2013, Hx Kidney (Renal Surgery) - right nephrectomy, Hx Orthopedic Surgery - left hand, left great toe amputation. Denies: Hx Hysterectomy - Immunizations Hx Diphtheria, Pertussis, Tetanus Vaccination: Yes Hx Pneumococcal Vaccination: 07/11/13 Physical Exam - Vital signs Vitals: Resp BP Pulse Ox 18 69/48 L 97 02/17/18 21:27 02/17/18 21:27 02/17/18 21:27 Course - Vital Signs Vital signs: Temp Pulse Resp BP Pulse Ox 98.1 F 16 87/45 L 92 02/17/18 21:49 02/18/18 00:46 02/18/18 00:52 02/18/18 00:46 - Laboratory Result Diagrams: 02/17/18 22:50 02/17/18 21:29 Laboratory results interpreted by me: 02/17/18 02/17/18 02/17/18 21:29 21:29 21:29 WBC RBC Hgb Hct RDW Absolute Neutrophils Absolute Eosinophils VBG pH 7.21 L Sodium 135.1 L Potassium 5.9 H Carbon Dioxide 17 L BUN 58 H Creatinine 3.93 H Est GFR ( Amer) 14 L Est GFR (Non-Af Amer) 12 L Lactic Acid 4.7 H Calcium 8.2 L AST 48 H NT-Pro-B Natriuret Pep Albumin 3.3 L Urine Glucose (UA) 02/17/18 02/17/18 02/17/18 21:29 22:50 23:15 WBC 14.2 H RBC 3.13 L Hgb 8.9 L Hct 26.9 L RDW 14.8 H Absolute Neutrophils 8.7 H Absolute Eosinophils 0.7 H VBG pH Sodium Potassium Carbon Dioxide BUN Creatinine Est GFR ( Amer) Est GFR (Non-Af Amer) Lactic Acid Calcium AST NT-Pro-B Natriuret Pep 1180 H Albumin Urine Glucose (UA) >=500 H Discharge - Discharge Referrals: AMBAR LOPEZ MD [Primary Care Provider] - Follow up as needed
[2018-02-18] MEDS ORDERED: DEXTROSE 5%-WATER 250 ML with NOREPINEPHRINE BITARTRATE 4 MG IV PRN ×2 (02:11)
[2018-02-18 02:13] LABS: ARTERIAL BLOOD BASE EXCESS -6.3 mmol/L; ARTERIAL BLOOD FIO2 4L; ARTERIAL BLOOD H2CO3 1.85 mmol/L (1.05-1.35); ARTERIAL BLOOD HCO3 22.3 mmol/L (20-26); ARTERIAL BLOOD O2 SATURATION 92.9 % (94-98); ARTERIAL BLOOD PCO2 61.3 mmHg (35-45); ARTERIAL BLOOD PO2 81.9 mmHg (80-100); ARTERIAL BLOOD TOTAL CO2 24.2 mmol/L (21-25)
[2018-02-18 02:15] LABS: ARTERIAL BLOOD PH 7.18 (7.35-7.45)
[2018-02-18] MEDS ORDERED: NORMAL SALINE 1000 ML 1,000 ML IV PRN (02:24)
[2018-02-18] MEDS ORDERED: IPRATROPIUM/ALBUTEROL 0.5-2.5 MG/3 ML AMPUL NEB PRN (02:24)
[2018-02-18] MEDS ORDERED: DEXTROSE 50%-WATER 25 GM/50 ML DISP.SYRIN IV PRN ×2 (02:31)
[2018-02-18] MEDS ORDERED: GLUCAGON,HUMAN RECOMB 1 MG INJ IM PRN (02:31)
[2018-02-18] MEDS ORDERED: DEXTROSE 40% GEL 15 GM TUBE PO PRN ×2 (02:31)
[2018-02-18] MEDS ORDERED: IMIPENEM/CILASTATIN SODIUM INJ 500 MG VIAL IV PRN (02:43)
--- NOTE | 2018-02-18 03:15 | RADIOLOGY REPORT (SQ) ---
EXAM DESCRIPTION: XR CHEST 1 VIEW COMPLETED DATE/TME: 02/18/2018 01:45 CLINICAL HISTORY: 57 years Female, s/p line COMPARISON: None. NUMBER OF VIEWS/TECHNIQUE: 1/AP FINDINGS: Moderate lung volume, pulmonary vascular congestion, mildly enlarged cardiac silhouette, left jugular central line tip at the SVC, and grossly intact bony thorax. IMPRESSION: No acute cardiopulmonary findings.
[2018-02-18] MEDS: IMIPENEM/CILASTATIN SODIUM 500 MG in NORMAL SALINE 100 ML IV SCH ×4 (03:29→21:32)
[2018-02-18 03:44] LABS: ANION GAP 12 (5-19); BLOOD UREA NITROGEN 58 mg/dL (7-20); CALCIUM 7.6 mg/dL (8.4-10.2); CARBON DIOXIDE 18 mmol/L (22-30); CHLORIDE 106 mmol/L (98-107); GLUCOSE 81 mg/dL (75-110); SODIUM 135.8 mmol/L (137-145)
[2018-02-18 04:04] LABS: CREATINE KINASE MB 3.53 ng/mL (<4.55); TROPONIN I < 0.012 ng/mL
[2018-02-18] MEDS ORDERED: SODIUM POLYSTYRENE SULFONATE 15 GM/60 ML PO ONE ×3 (04:15→16:00)
[2018-02-18] MEDS ORDERED: CALCIUM GLUCONATE 1000 MG/10 ML INJ IV ONE ×2 (04:15→16:00)
[2018-02-18] MEDS: ONDANSETRON HCL INJ/PF 4 MG/2 ML SDV IV PRN (09:03)
[2018-02-18 09:20] LABS: TROPONIN I < 0.012 ng/mL
[2018-02-18] MEDS: NORMAL SALINE 1000 ML 1,000 ML IV PRN (09:30)
[2018-02-18] MEDS: PANTOPRAZOLE SODIUM 40 MG VIAL IV SCH ×2 (09:41→21:33)
[2018-02-18] MEDS: ENOXAPARIN SODIUM INJ 30 MG/0.3 ML DISP.SYRIN SUBCUT SCH (09:42)
[2018-02-18 09:55] LABS: ABSOLUTE EOSINOPHILS # (AUTO) 0.7 10^3/uL (0.0-0.6); ABSOLUTE LYMPHOCYTES (AUTO) 2.9 10^3/uL (0.5-4.7); ABSOLUTE MONOCYTES (AUTO) 0.6 10^3/uL (0.1-1.4); ABSOLUTE NEUT (AUTO) 7.8 10^3/uL (1.7-8.2); BASOPHILS % (AUTO) 0.3 % (0-2); EOSINOPHILS % (AUTO) 5.5 % (0-6); HEMATOCRIT 31.8 % (36.0-47.0); HEMOGLOBIN 10.2 g/dL (12.0-15.5); LYMPHOCYTES % (AUTO) 23.9 % (13-45); MEAN CORPUSCULAR HEMOGLOBIN 27.3 pg (27.0-33.4); MEAN CORPUSCULAR HGB CONC 32.1 g/dL (32.0-36.0); MEAN CORPUSCULAR VOLUME 85 fl (80-97); MONOCYTES % (AUTO) 5.3 % (3-13); PLATELET COUNT 274 10^3/uL (150-450); RED BLOOD COUNT 3.73 10^6/uL (3.72-5.28); RED CELL DISTRIBUTION WIDTH 15.1 % (11.5-14.0); TOTAL CELLS COUNTED % (AUTO) 100 %
[2018-02-18 09:59] LABS: ANION GAP 13 (5-19); BLOOD UREA NITROGEN 55 mg/dL (7-20); CALCIUM 8.3 mg/dL (8.4-10.2); CARBON DIOXIDE 19 mmol/L (22-30); CHLORIDE 106 mmol/L (98-107); GLUCOSE 87 mg/dL (75-110); SODIUM 138.2 mmol/L (137-145)
[2018-02-18 10:03] LABS: POTASSIUM 6.4 mmol/L (3.6-5.0)
[2018-02-18 11:12] LABS: ARTERIAL BLOOD BASE EXCESS -3.9 mmol/L; ARTERIAL BLOOD H2CO3 1.69 mmol/L (1.05-1.35); ARTERIAL BLOOD HCO3 23.7 mmol/L (20-26); ARTERIAL BLOOD O2 SATURATION 97.2 % (94-98); ARTERIAL BLOOD PCO2 56.3 mmHg (35-45); ARTERIAL BLOOD PH 7.24 (7.35-7.45); ARTERIAL BLOOD PO2 111.4 mmHg (80-100); ARTERIAL BLOOD TOTAL CO2 25.5 mmol/L (21-25)
[2018-02-18 11:13] LABS: ARTERIAL BLOOD FIO2 30%
--- NOTE | 2018-02-18 12:00 | RADIOLOGY REPORT (SQ) ---
EXAM DESCRIPTION: CHEST SINGLE VIEW COMPLETED DATE/TIME: 02/18/2018 10:08 am REASON FOR STUDY: respiartory failure COMPARISON: Earlier the same day. NUMBER OF VIEWS: One view. TECHNIQUE: Single frontal radiographic image of the chest acquired. LIMITATIONS: None. FINDINGS: LUNGS AND PLEURA: Stable appearance. No pneumothorax. No infiltrate. MEDIASTINUM AND HILAR STRUCTURES: Stable heart size and mediastinal structures. HEART AND VASCULAR STRUCTURES: Stable appearance. SUPPORT DEVICES: Appropriate location without change. BONES: No acute findings. OTHER: No other significant finding. IMPRESSION: STABLE APPEARANCE OF THE CHEST. SUPPORT DEVICES UNCHANGED. TECHNICAL DOCUMENTATION: JOB ID: [id number] [employer]- All Rights Reserved Reading location - IP/workstation name: [email or web address]
--- NOTE | 2018-02-18 12:20 | EKG REPORT ---
SEVERITY:- ABNORMAL ECG - SINUS RHYTHM FIRST DEGREE AV BLOCK LEFT VENTRICULAR HYPERTROPHY PROLONGED QT INTERVAL : Confirmed by: Randi Nagel MD 18-Feb-2018 12:19:11
[2018-02-18 13:33] LABS: ALANINE AMINOTRANSFERASE 37 U/L (9-52); ALBUMIN 3.3 g/dL (3.5-5.0); ALKALINE PHOSPHATASE 83 U/L (38-126); ANION GAP 11 (5-19); ASPARTATE AMINO TRANSFERASE 44 U/L (14-36); BILIRUBIN,DIRECT 0.3 mg/dL (0.0-0.4); BILIRUBIN,TOTAL 0.3 mg/dL (0.2-1.3); BLOOD UREA NITROGEN 49 mg/dL (7-20); CALCIUM 8.3 mg/dL (8.4-10.2); CARBON DIOXIDE 24 mmol/L (22-30); CHLORIDE 106 mmol/L (98-107); GLUCOSE 74 mg/dL (75-110); POTASSIUM 5.7 mmol/L (3.6-5.0); SODIUM 140.5 mmol/L (137-145); TOTAL PROTEIN 6.7 g/dL (6.3-8.2)
--- NOTE | 2018-02-18 13:43 | PDOC CONSULTATION ---
Consultation Consult Date: 02/18/18 Attending physician:: СВЕТЛАНА CORRIGAN Consult reason:: Hypotension History of Present Illness Admission Date/PCP: 02/18/18 02:35 AMBAR OSHARISA Patient complains of: General fatigue and tiredness History of Present Illness: JESU ORR is a 57 year old female, coming in for generalized weakness low blood pressure. Upon my evaluation patient with oxygen patient states she wears oxygen at home also wears CPAP. Patient states feeling unwell for the last 24 hours. Patient that she has been compliant with all her medications including her blood pressure medications and her pain medication. Patient denies any changes to her medications states no fevers at home no sweats. Patient also denies any chest pain and no change in her abdominal pain. Patient with chronic abdominal pain due to the large hernia. Patient denies any nausea vomiting or diarrhea. Patient has followed with me in the office at [facility]. Patient has history of hypertension, obstructive sleep apnea, type 2 diabetes with kidney complications. Patient also has history of single functioning kidney. Her recent nuclear stress test was technically difficult with possible distal inferior wall ischemia but not definitive. Recent 2D echocardiogram had shown normal LVEF with grade 2 diastolic dysfunction and left atrium being mildly dilated. CPAP titration shows control of sleep apnea at 15 cm of water. Past Medical History Cardiac Medical History: Reports: Congestive Heart Failure, Coronary Artery Disease, Myocardial Infarction - x2, Hypertension Denies: DVT Pulmonary Medical History: Reports: Pneumonia Denies: Asthma, Bronchitis, Chronic Obstructive Pulmonary Disease (COPD) Neurological Medical History: Denies: Seizures Endocrine Medical History: Reports: Diabetes Mellitus Type 1, Diabetes Mellitus Type 2 Renal/ Medical History: Reports: End Stage Renal Disease Malignancy Medical History: Reports: Renal (Kidney) Cancer - s/p right nephrectomy September, Musculoskeltal Medical History: Reports: Arthritis - gout Psychiatric Medical History: Reports: Depression Hematology: Reports: Anemia Past Surgical History Past Surgical History: Reports: Cardiac Catheterization - stent placement, Cholecystectomy, Coronary Stent - 2013, Orthopedic Surgery - left hand, left great toe amputation Denies: Hysterectomy Social History Information Source: Patient Smoking Status: Unknown if Ever Smoked Frequency of Alcohol Use: None Hx Recreational Drug Use: No Drugs: None Hx Prescription Drug Abuse: No - Advance Directive Resuscitation Status: Full Code Family History Family History: Hypertension Parental Family History Reviewed: Yes Children Family History Reviewed: Yes Sibling(s) Family History Reviewed.: Yes Medication/Allergy Home Medications: Alprazolam [Xanax 0.5 mg Tablet] 0.5 mg PO Q12HP PRN 05/26/17 Cyclobenzaprine HCl [Flexeril 10 mg Tablet] 10 mg PO QPMP PRN 05/26/17 Fluoxetine HCl [Prozac] 60 mg PO QAM 05/26/17 Furosemide [Lasix 40 mg Tablet] 40 mg PO DAILY 05/26/17 Gabapentin [Neurontin] 600 mg PO Q8 05/26/17 Isosorbide Mononitrate [Isosorbide Mononitrate ER] 30 mg PO DAILY 05/26/17 Lisinopril [Prinivil 10 mg Tablet] 20 mg PO DAILY 05/26/17 Metoprolol Succinate [Toprol XL 100 mg Tablet] 100 mg PO DAILY 05/26/17 Ranitidine HCl [Zantac 150 mg Tablet] 150 mg PO QHS 05/26/17 Ranolazine [Ranexa 500 mg Tab.sr] 500 mg PO Q12 05/26/17 Insulin Degludec [Tresiba Flextouch U-100] 80 unit SQ QHS #8 insuln.pen Empagliflozin/Metformin HCl [Synjardy Xr 25-1,000 mg Tablet] 1 each PO [id number] 10/31/17 Liraglutide [Victoza 2-Thong] 1.8 mg SQ DAILY 10/31/17 Nitroglycerin 0.3 mg SL ASDIR PRN 10/31/17 Aspirin [Ecotrin 325 mg EC Tablet] 325 mg PO DAILY 02/18/18 Bupropion HCl [Bupropion Xl] 150 mg PO DAILY 02/18/18 Dexlansoprazole [Dexilant 60 mg Capsule] 60 mg PO DAILY 02/18/18 Ergocalciferol (Vitamin D2) [Drisdol 50,000 Unit (1.25MG) Capsule] 50,000 unit PO .QWEEKLY 02/18/18 Ferrous Sulfate [Feosol 325 mg Tablet] 325 mg PO BID 02/18/18 Icosapent Ethyl [Vascepa] 2 gm PO BIDBS 02/18/18 Insulin Lispro [Humalog Insulin 100 Unit/1 ml 3 ml Vial] 0 unit SUBCUT .SLD SCALE MDD ACHS 02/18/18 Insulin Lispro [Humalog Insulin 100 Unit/1 ml 3 ml Vial] 5 unit SUBCUT MEALS 05/28 Lidocaine [Lidoderm 5% (700 mg) Transdermal Patch] 1 patch TP DAILY 02/18/18 Oxycodone HCl/Acetaminophen [Percocet 5-325 mg Tablet] 1 tab PO Q8HP PRN Allergies/Adverse Reactions: sulfamethoxazole [From Bactrim] Allergy (Severe, Verified 02/01/18 14:50) rash trimethoprim [From Bactrim] Allergy (Severe, Verified 02/01/18 14:50) rash Penicillins Allergy (Unknown, Verified 02/01/18 14:50) Review of Systems Review of Systems: Please see history of present illness and past medical history as wall. Constitutional: Mild general fatigue and tiredness reported.. Head : No recent chronic headaches, recent head injury. Eyes: No recent eye pain, diplopia, redness, discharge, acute visual changes. Ears: No recent chronic ear pain, acute hearing loss, ear discharge. Oral cavity: No recent ulcerations, bleeding, oral cavity discomfort. Neck: No recent acute neck pain reported. Hematologic: No recent easy bruising or bleeding. Lymphatic: No recent lymph node enlargement reported. Cardiovascular system review: See history of present illness. Respiratory system review: No hemoptysis or blood clots in the lungs reported. Mild Shortness of breath on exertion Gastrointestinal system review: Negative for any recent acute hematemesis, melena. Genitourinary system review: No recent acute or chronic hematuria, flank pain, UTI etc. reported. Skin system review: Negative for any recent abnormal bruising, no rash, no pruritus reported. Neurologic: No prior history of strokes, mini strokes, seizure disorder. Psychologic: No history of major psychosis or major depression reported. Musculoskeletal: Minor aches and pains reported. No acute joint swelling reported. Endocrine: No recent polyuria, polydipsia, recent heat or cold intolerance. Physical Exam Vital Signs: Temp Pulse Resp BP Pulse Ox 98.1 F 17 119/80 96 02/17/18 21:49 02/18/18 13:00 02/18/18 13:00 02/18/18 13:00 Intake & Output 02/17/18 02/18/18 02/19/18 06:59 06:59 06:59 Intake Total 1100 98 Output Total 2400 Balance 1100 -2302 Exam: GENERAL: well-nourished and in no acute distress. Alert and oriented x3 HEAD: Atraumatic, normocephalic. EYES: Pupils equal round and reactive to light, extraocular movements intact, sclera anicteric, conjunctiva are normal. ENT: TMs normal, nares patent, oropharynx clear without exudates. Moist mucous membranes. No oral ulcerations or bleeding gums noted NECK: supple without lymphadenopathy. Trachea is central. No cervical or axillary lymphadenopathy noted. Carotids are 2+, JVD WNL LUNGS: Respiration seems nonlabored, no significant accessory muscle action noted. Breath sounds clear to auscultation bilaterally and equal noted. No wheezes rales or rhonchi noted. No significant dullness noted on percussion. CHEST: Palpation of the chest wall shows no significant chest wall tenderness. HEART: [place] [employer], No PSH, 1/6 PAO aortic area, 1/6 meza systolic murmur mitral area, no rubs, no gallops. ABDOMEN: Soft, no significant tenderness appreciated, normoactive bowel sounds. No guarding, no rebound. No rigidity noted . No masses appreciated. EXTREMITIES: Pedal pulses are 1-2+, no calf tenderness noted. No clubbing or cyanosis. Trace to 1+ pedal edema noted NEUROLOGICAL: Focused neurological exam showed no significant neurologic deficit. Normal speech, no focal weakness appreciated. PSYCH: Normal mood, normal affect. Judgment and insight within normal limits. SKIN: No significant ecchymosis, skin is noted to be warm. MUSCULOSKELETAL EXAM: No significant acute joint swelling noted. Results Laboratory Results: 02/18/18 08:32 02/18/18 02/18/18 02/18/18 03:07 04:47 08:32 WBC RBC Hgb Hct MCV MCH MCHC RDW Plt Count Seg Neutrophils % Lymphocytes % Monocytes % Eosinophils % Basophils % Absolute Neutrophils Absolute Lymphocytes Absolute Monocytes Absolute Eosinophils Absolute Basophils Carbonic Acid HCO3/H2CO3 Ratio ABG pH ABG pCO2 ABG pO2 ABG HCO3 ABG O2 Saturation ABG Base Excess FiO2 Sodium 135.8 L 138.2 Potassium 6.0 H* 6.4 H* Chloride 106 106 Carbon Dioxide 18 L 19 L Anion Gap 12 13 BUN 58 H 55 H Creatinine 3.70 H 3.38 H Est GFR ( Amer) 15 L 17 L Est GFR (Non-Af Amer) 13 L 14 L Glucose 81 87 Lactic Acid 1.2 Calcium 7.6 L 8.3 L 02/18/18 02/18/18 08:32 10:40 WBC 12.0 H RBC 3.73 Hgb 10.2 L Hct 31.8 L MCV 85 MCH 27.3 MCHC 32.1 RDW 15.1 H Plt Count 274 Seg Neutrophils % 65.0 Lymphocytes % 23.9 Monocytes % 5.3 Eosinophils % 5.5 Basophils % 0.3 Absolute Neutrophils 7.8 Absolute Lymphocytes 2.9 Absolute Monocytes 0.6 Absolute Eosinophils 0.7 H Absolute Basophils 0.0 Carbonic Acid 1.69 H HCO3/H2CO3 Ratio 14:1 ABG pH 7.24 L ABG pCO2 56.3 H ABG pO2 111.4 H ABG HCO3 23.7 ABG O2 Saturation 97.2 ABG Base Excess -3.9 FiO2 30% Sodium Potassium Chloride Carbon Dioxide Anion Gap BUN Creatinine Est GFR ( Amer) Est GFR (Non-Af Amer) Glucose Lactic Acid Calcium 02/18/18 02/18/18 02/18/18 03:07 03:07 08:32 Creatine Kinase 127 117 CK-MB (CK-2) 3.53 Troponin I < 0.012 02/18/18 08:32 Creatine Kinase CK-MB (CK-2) 3.60 Troponin I < 0.012 EKG Comments: Sinus rhythm, no acute ST-T wave changes are noted. Impressions: Abdomen/Pelvis CT 02/17/18 22:30 IMPRESSION: No acute intrathoracic finding. TECHNICAL DOCUMENTATION: Quality ID # 436: Final reports with documentation of one or more dose reduction techniques (e.g., Automated exposure control, adjustment of the mA and/or kV according to patient size, use of iterative reconstruction technique) 2010 [employer]- All Rights Reserved EXAM DESCRIPTION: CT ABDOMEN AND PELVIS WITHOUT IV CONTRAST COMPLETED DATE/TME: 02/17/2018 22:30 CLINICAL HISTORY: 57 years, Female, sepsis COMPARISON: None. TECHNIQUE: Contiguous axial images of the abdomen and pelvis were obtained without IV contrast followed by reconstruction images. This exam was performed according to our departmental dose-optimization program, which includes automated exposure control, adjustment of the mA and/or kV according to patient size and/or use of iterative reconstruction technique. Images stored on PACS. All CT scanners at this facility use dose modulation, iterative reconstruction, and/or weight based dosing when appropriate to reduce radiation dose to as low as reasonably achievable (ALARA). [facility]: Dose Right [facility]: CareDose [facility]: Dose Right [facility]: Teradose 4D [facility]: Cap That LIMITATIONS: None. FINDINGS: Liver: Within normal limits Gallbladder/Bile ducts: Cholecystectomy clips are seen in gallbladder fossa. No intra or extrahepatic duct dilatation. Spleen: Within normal limits Pancreas: Within normal limits Adrenal glands: Within normal limits Kidneys/Bladder: Again noted, absent right kidney. No left renal stones or hydronephrosis. Contracted bladder without significant findings. GI tract: Stable appearance of a large right abdominal wall hernia with herniated cecum, portions of the ascending colon and multiple small bowel loops. Abdominal wall defect measures 9.2 cm AP x 8.6 cm CC. The most lateral aspect of the hernia sac is outside field of view. The visualized portions of the hernia sac show no evidence of free fluid or bowel dilatation. No evidence of obstruction or active inflammatory process. No intra-abdominal collection. Uterus/adnexa: Anteverted uterus. No suspicious adnexal lesion. Vascular structures: Scattered vascular calcifications Free fluid: No free fluid. Lymph nodes: No radiographically enlarged lymph nodes Soft tissues: Large right abdominal wall hernia as described above. Incidentally noted left obturator externus intramuscular lipoma measuring 3 cm. Bones: No acute osseous finding. Mild degenerative changes at L3-L4. IMPRESSION: 1. No acute intra-abdominal finding 2. Stable large right abdominal wall hernia as described. 3. Absent right kidney TECHNICAL DOCUMENTATION: Quality ID # [id number]: Final reports with documentation of one or more dose reduction techniques (e.g., Automated exposure control, adjustment of the mA and/or kV according to patient size, use of iterative reconstruction technique) 2010 [employer]- All Rights Reserved Chest CT 02/17/18 22:30 IMPRESSION: No acute intrathoracic finding. TECHNICAL DOCUMENTATION: Quality ID # [id number]: Final reports with documentation of one or more dose reduction techniques (e.g., Automated exposure control, adjustment of the mA and/or kV according to patient size, use of iterative reconstruction technique) 2010 [employer]- All Rights Reserved EXAM DESCRIPTION: CT ABDOMEN AND PELVIS WITHOUT IV CONTRAST COMPLETED DATE/TME: 02/17/2018 22:30 CLINICAL HISTORY: 57 years, Female, sepsis COMPARISON: None. TECHNIQUE: Contiguous axial images of the abdomen and pelvis were obtained without IV contrast followed by reconstruction images. This exam was performed according to our departmental dose-optimization program, which includes automated exposure control, adjustment of the mA and/or kV according to patient size and/or use of iterative reconstruction technique. Images stored on PACS. All CT scanners at this facility use dose modulation, iterative reconstruction, and/or weight based dosing when appropriate to reduce radiation dose to as low as reasonably achievable (ALARA). [facility]: Dose Right [facility]: CareDose [facility]: Dose Right [facility]: Teradose 4D [facility]: Cap That LIMITATIONS: None. FINDINGS: Liver: Within normal limits Gallbladder/Bile ducts: Cholecystectomy clips are seen in gallbladder fossa. No intra or extrahepatic duct dilatation. Spleen: Within normal limits Pancreas: Within normal limits Adrenal glands: Within normal limits Kidneys/Bladder: Again noted, absent right kidney. No left renal stones or hydronephrosis. Contracted bladder without significant findings. GI tract: Stable appearance of a large right abdominal wall hernia with herniated cecum, portions of the ascending colon and multiple small bowel loops. Abdominal wall defect measures 9.2 cm AP x 8.6 cm CC. The most lateral aspect of the hernia sac is outside field of view. The visualized portions of the hernia sac show no evidence of free fluid or bowel dilatation. No evidence of obstruction or active inflammatory process. No intra-abdominal collection. Uterus/adnexa: Anteverted uterus. No suspicious adnexal lesion. Vascular structures: Scattered vascular calcifications Free fluid: No free fluid. Lymph nodes: No radiographically enlarged lymph nodes Soft tissues: Large right abdominal wall hernia as described above. Incidentally noted left obturator externus intramuscular lipoma measuring 3 cm. Bones: No acute osseous finding. Mild degenerative changes at L3-L4. IMPRESSION: 1. No acute intra-abdominal finding 2. Stable large right abdominal wall hernia as described. 3. Absent right kidney TECHNICAL DOCUMENTATION: Quality ID # [id number]: Final reports with documentation of one or more dose reduction techniques (e.g., Automated exposure control, adjustment of the mA and/or kV according to patient size, use of iterative reconstruction technique) 2010 [employer]- All Rights Reserved Chest X-Ray 02/18/18 01:45 IMPRESSION: No acute cardiopulmonary findings. Assessment & Plan - Diagnosis (1) Hypotension Qualifiers: Hypotension type: unspecified hypotension type Qualified Code(s): I95.9 - Hypotension, unspecified Is this a current diagnosis for this admission?: Yes (2) Hyperkalemia Is this a current diagnosis for this admission?: Yes (3) Sepsis Qualifiers: Sepsis type: sepsis due to unspecified organism Qualified Code(s): A41.9 - Sepsis, unspecified organism Is this a current diagnosis for this admission?: Yes (4) Obstructive sleep apnea of adult Is this a current diagnosis for this admission?: Yes (5) Chronic kidney disease (CKD) stage G4/A1, severely decreased glomerular filtration rate (GFR) between 15-29 mL/min/1.73 square meter and albuminuria creatinine ratio less than 30 mg/g Is this a current diagnosis for this admission?: Yes (6) Morbid obesity with BMI of 45.0-49.9, adult Is this a current diagnosis for this admission?: Yes (7) Diabetes Qualifiers: Diabetes mellitus type: type 2 Diabetes mellitus complication status: without complication Qualified Code(s): E11.9 - Type 2 diabetes mellitus without complications Is this a current diagnosis for this admission?: Yes (8) Probable sepsis Is this a current diagnosis for this admission?: Yes - Notes Notes: Hypotension: Most likely related to sepsis, underlying relative hypovolemia. Agree with fluid resuscitation. May use Levophed, Alberto-Synephrine etc. for blood pressure support. Hyperkalemia: Possibly related to sepsis and hypotension leading to renal hypoperfusion. Recommend nephrology consultation. If dialysis is not available may consider transfer to tertiary care. Currently EKG not showing any acute effect of hyperkalemia. Patient has been started on Kayexalate, hospital does not carry [facility]. Patient has had calcium gluconate, may use insulin with dextrose, albuterol inhalers etc. nebulizers etc. but they just cause shifting potassium rather than get rid of hypertension. Advanced chronic kidney disease: Nephrology evaluation has been requested. Sleep apnea syndrome. Recommend CPAP therapy. Patient was noted to be severely acidotic and with CO2 retention. Patient has history of CPAP use and also with in-line oxygen use. May consider pulmonary evaluation. Diabetes: Recommend good control of diabetes. Overall prognosis is guarded at this time. - Time Time Spent: 30 to 50 Minutes - CODE STATUS was discussed, patient remains full code. Surrogate decision-maker unchanged. Multiple medical problems were addressed. More than 50% of the time spent coordinating care, discussing management plans with involved caregivers. Management plans discussed with involved personnels. Medical decision making was of moderate to high complexity , patient's has multiple comorbidities. Medications reviewed and adjusted accordingly: Yes
[2018-02-18 16:00] LABS: ARTERIAL BLOOD BASE EXCESS -2.3 mmol/L; ARTERIAL BLOOD H2CO3 1.59 mmol/L (1.05-1.35); ARTERIAL BLOOD HCO3 24.6 mmol/L (20-26); ARTERIAL BLOOD O2 SATURATION 97.9 % (94-98); ARTERIAL BLOOD PCO2 52.9 mmHg (35-45); ARTERIAL BLOOD PH 7.29 (7.35-7.45); ARTERIAL BLOOD PO2 121.8 mmHg (80-100); ARTERIAL BLOOD TOTAL CO2 26.2 mmol/L (21-25)
[2018-02-18 16:01] LABS: ARTERIAL BLOOD FIO2 ROOM AIR
[2018-02-18 16:12] LABS: ANION GAP 7 (5-19); BLOOD UREA NITROGEN 50 mg/dL (7-20); CALCIUM 8.3 mg/dL (8.4-10.2); CARBON DIOXIDE 25 mmol/L (22-30); CHLORIDE 108 mmol/L (98-107); GLUCOSE 84 mg/dL (75-110); SODIUM 139.9 mmol/L (137-145)
[2018-02-18] MEDS: GABAPENTIN 300 MG CAPSULE PO SCH ×2 (16:22→21:34)
[2018-02-18 16:24] LABS: CREATINE KINASE MB 2.64 ng/mL (<4.55)
[2018-02-18 16:30] LABS: TROPONIN I < 0.012 ng/mL
[2018-02-18] MEDS: SODIUM POLYSTYRENE SULFONATE 15 GM/60 ML PR SCH (16:30)
--- NOTE | 2018-02-18 17:05 | HISTORY AND PHYSICAL E ---
History and Physical NAME: JESU ORR : 1960 AGE: 57Y ADMITTED: 02/18/2018 ROOM: 605 HISTORY OF PRESENT ILLNESS: This is a 57-year-old female patient of Dr. Lopez, with a significant history of sleep apnea, chronic, currently on CPAP; history of coronary artery disease; history of chronic kidney disease; hypertension; hyperlipidemia; on chronic pain medications, who basically came to the emergency department with the complaint of weakness and low blood pressure. Upon evaluation of the patient, she was placed on oxygen. She had been getting oxygen at home. Patient started feeling unwell for the last 24 hours. Patient said she has been compliant with all of her medications, including her blood pressure medications, her pain medications. Patient denied any chest pain. Denied any abdominal pain. Patient with chronic abdominal pain with a large hernia. Patient had a CT scan of the chest, abdomen and pelvis all done, with no acute findings. Patient's lab values show anemia with leukocytosis and elevated lactic acid, and acute on chronic renal failure with hyperkalemia. Patient also, at this point, is on a Levophed drip, and the patient was given IV antibiotics and admitted to ICU for further evaluation. Patient also had a pH of 7.18 with hypercapnia and metabolic acidosis. When I saw the patient, was currently on BiPAP, alert, awake, answered the questions, but patient goes back to sleep easily. At this point, potassium is still elevated at 6.4. Patient was given 45 grams of Kayexalate just now, was ordered even earlier. At this point, it was decided to keep a close eye on patient in the ICU. There were no EKG changes, so patient was given 1 gram of calcium gluconate, and a Cardiology consult was requested. Patient was seen by Dr. Hughes a couple of weeks back. Patient was also consulted by Dr. Collins. PAST MEDICAL HISTORY: 1. History of chronic kidney disease, currently seeing Dr. Kiran. 2. History of pneumonia. 3. History of COPD. 4. History of asthma. 5. History of cerebrovascular disease. 6. History of diabetes mellitus, type 2. 7. History of end-stage renal disease. 8. History of renal cancer, status post right nephrectomy *------*. 9. History of hypertension. 10. History of congestive heart failure. 11. History of coronary artery disease. PAST SURGICAL HISTORY: 1. Cardiac cath. 2. Stent placements. 3. Cholecystectomy. 4. History of *------*. 5. History of kidney removal, right side. 6. History of left great toe amputations. HOME MEDICATIONS: 1. Flexeril. 2. Iron tablets. 3. Isosorbide 30 mg p.o. daily. 4. Lisinopril 20 mg p.o. daily. 5. Ranexa 400 mg twice daily. 6. Alprazolam 0.5 mg twice daily. 7. Aspirin 325 mg p.o. daily. 8. Oxycodone 1 tablet q.8 p.r.n. 9. Lasix 40 mg p.o. daily. 10. Insulin Humalog before each meal. 11. Dexilant 60 mg p.o. daily. 12. Metformin 500 daily. 13. Prozac daily. 14. Gabapentin 600 mg p.o. daily. 15. Tresiba 80 units daily. 16. Metoprolol daily. 17. Nitroglycerin p.r.n. tablet. 18. Ranitidine daily. 19. Lidoderm patch daily. PHYSICAL EXAMINATION: VITAL SIGNS: Patient's blood pressure is 106/63, pulse is 87, temperature is 98.2. Patient's initial blood pressure was low to 88/52 on admission. GENERAL: Patient is currently alert, awake, on the BiPAP. Still easy to go back to sleep. HEENT: Head and neck normocephalic. TOM. LUNGS: Decreased breath sounds bilaterally. HEART: S1, S2 are present. ABDOMEN: Soft. Bowel sounds are present. There is diffuse mild tenderness near the palpable large hernial sac. EXTREMITIES: No edema. NEUROLOGIC: Alert, awake. No other abnormalities. Patient moves all 4 extremities. LABORATORY DATA: WBC is 14.2, hemoglobin is 8.9 and platelet count is 262,000. Chemistry: Sodium is 138, potassium is 5.9, BUN is 58, creatinine is 3.93. Lactic acid was 4.7. Calcium is 8.2. Cardiac enzymes x1 are negative. Patient's urine has no acute finding. Stool occult blood is negative. Urine drug screen appeared positive. Benzodiazepines positive. Patient's blood gas: The pH was 7.18, pCO2 was 61.3 on 4 liters nasal cannula. Patient's chest CT was done and showed the patient had no acute intrathoracic findings. Patient's CT abdomen and pelvis was done. At this point, no other acute findings. ASSESSMENT: 1. Septicemia. 2. Hypertension. 3. Acute renal failure on chronic kidney disease. 4. Hyperkalemia. 5. Coronary artery disease. 6. Hypertension. 7. Hyperlipidemia. 8. Hypercapnic respiratory failure. 9. Metabolic acidosis. 10. Morbid obesity. 11. Sleep apnea. PLAN: At this point, admit the patient to intensive care with broad-spectrum antibiotics, IV Primaxin. Get the blood culture, urine cultures. All the CTs of chest, abdomen and pelvis were all stable. Patient does not have any meningeal signs. We are giving the patient 45 g Kayexalate now. Consult Nephrology. We already got an EKG, no changes. Patient given 1 gram of calcium gluconate. Consult Cardiology and consult Pulmonary. See the MD orders. Patient is currently very critical. More than 45 minutes spent examining the patient in the intensive care unit. I hope the patient continues to improve. Will repeat the potassium in 2 hours. DICTATING PHYSICIAN: СВЕТЛАНА CORRIGAN M.D. [id number] PHY#: [id number] ID: [id number] JOB#: [id number] ACCT: [id number] cc:AMBAR LOPEZ M.D. >
[2018-02-18] MEDS: FAMOTIDINE 20 MG TABLET PO SCH (21:34)
[2018-02-18] MEDS: RANOLAZINE 500 MG TAB.SR.12H PO SCH (21:38)
--- NOTE | 2018-02-18 21:58 | PDOC CONSULTATION ---
Consultation Consult Date: 02/18/18 Consult reason:: incisional hernia History of Present Illness Admission Date/PCP: 02/18/18 02:35 AMBAR JOHN Patient complains of: Pains on the right flank incisional hernia when attempted to reduce History of Present Illness: JESU ORR is a 57 year old female admitted for respiratory insufficiency noted ro have a non obstructing right flank incisional hernia on CT scan. Had history of right nephrectomy for cancer. Past Medical History Cardiac Medical History: Reports: Congestive Heart Failure, Coronary Artery Disease, Myocardial Infarction - x2, Hypertension Denies: DVT Pulmonary Medical History: Reports: Pneumonia Denies: Asthma, Bronchitis, Chronic Obstructive Pulmonary Disease (COPD) Neurological Medical History: Denies: Seizures Endocrine Medical History: Reports: Diabetes Mellitus Type 1, Diabetes Mellitus Type 2 Renal/ Medical History: Reports: End Stage Renal Disease Malignancy Medical History: Reports: Renal (Kidney) Cancer - s/p right nephrectomy September, Musculoskeltal Medical History: Reports: Arthritis - gout Psychiatric Medical History: Reports: Depression Hematology: Reports: Anemia Past Surgical History Past Surgical History: Reports: Cardiac Catheterization - stent placement, Cholecystectomy, Coronary Stent - 2013, Hip Replacement, Orthopedic Surgery - left hand, left great toe amputation, Other - right nephrectomy for ca Denies: Hysterectomy Social History Smoking Status: Unknown if Ever Smoked Frequency of Alcohol Use: None Hx Recreational Drug Use: No Drugs: None Hx Prescription Drug Abuse: No - Advance Directive Resuscitation Status: Full Code Family History Family History: Hypertension Parental Family History Reviewed: Yes Children Family History Reviewed: No Sibling(s) Family History Reviewed.: No Medication/Allergy Home Medications: Alprazolam [Xanax 0.5 mg Tablet] 0.5 mg PO Q12HP PRN 05/26/17 Cyclobenzaprine HCl [Flexeril 10 mg Tablet] 10 mg PO QPMP PRN 05/26/17 Fluoxetine HCl [Prozac] 60 mg PO QAM 05/26/17 Furosemide [Lasix 40 mg Tablet] 40 mg PO DAILY 05/26/17 Gabapentin [Neurontin] 600 mg PO Q8 05/26/17 Isosorbide Mononitrate [Isosorbide Mononitrate ER] 30 mg PO DAILY 05/26/17 Lisinopril [Prinivil 10 mg Tablet] 20 mg PO DAILY 05/26/17 Metoprolol Succinate [Toprol XL 100 mg Tablet] 100 mg PO DAILY 05/26/17 Ranitidine HCl [Zantac 150 mg Tablet] 150 mg PO QHS 05/26/17 Ranolazine [Ranexa 500 mg Tab.sr] 500 mg PO Q12 05/26/17 Insulin Degludec [Tresiba Flextouch U-100] 80 unit SQ QHS #8 insuln.pen Empagliflozin/Metformin HCl [Synjardy Xr 25-1,000 mg Tablet] 1 each PO [id number] 10/31/17 Liraglutide [Victoza 2-Thong] 1.8 mg SQ DAILY 10/31/17 Nitroglycerin 0.3 mg SL ASDIR PRN 10/31/17 Aspirin [Ecotrin 325 mg EC Tablet] 325 mg PO DAILY 02/18/18 Bupropion HCl [Bupropion Xl] 150 mg PO DAILY 02/18/18 Dexlansoprazole [Dexilant 60 mg Capsule] 60 mg PO DAILY 02/18/18 Ergocalciferol (Vitamin D2) [Drisdol 50,000 Unit (1.25MG) Capsule] 50,000 unit PO MO@1000 02/18/18 Ferrous Sulfate [Feosol 325 mg Tablet] 325 mg PO BID 02/18/18 Icosapent Ethyl [Vascepa] 2 gm PO BIDBS 02/18/18 Insulin Lispro [Humalog Insulin 100 Unit/1 ml 3 ml Vial] 0 unit SUBCUT .SLD SCALE MDD ACHS 02/18/18 Insulin Lispro [Humalog Insulin 100 Unit/1 ml 3 ml Vial] 5 unit SUBCUT MEALS 05/28 Lidocaine [Lidoderm 5% (700 mg) Transdermal Patch] 1 patch TP DAILY 02/18/18 Oxycodone HCl/Acetaminophen [Percocet 5-325 mg Tablet] 1 tab PO Q8HP PRN Allergies/Adverse Reactions: sulfamethoxazole [From Bactrim] Allergy (Severe, Verified 02/01/18 14:50) rash trimethoprim [From Bactrim] Allergy (Severe, Verified 02/01/18 14:50) rash Penicillins Allergy (Unknown, Verified 02/01/18 14:50) Review of Systems ROS unobtainable: Due to mental status - difficult to communicate with her Cpap on Physical Exam Vital Signs: Temp Pulse Resp BP Pulse Ox 98.1 F 86 18 126/75 H 98 02/18/18 19:43 02/18/18 15:49 02/18/18 21:02 02/18/18 17:58 02/18/18 21:02 Intake & Output 02/17/18 02/18/18 02/19/18 06:59 06:59 06:59 Intake Total 1100 98 Output Total 3850 Balance 1100 -3752 Weight 135.5 kg General appearance: PRESENT: mild distress Head exam: PRESENT: atraumatic Eye exam: PRESENT: conjunctiva pink Mouth exam: PRESENT: moist Neck exam: PRESENT: full ROM Respiratory exam: PRESENT: clear to auscultation tarsha Cardiovascular exam: PRESENT: RRR Pulses: PRESENT: normal radial pulses Vascular exam: PRESENT: normal capillary refill GI/Abdominal exam: PRESENT: hernia - right flank, soft, tenderness - on trying to reduce Rectal exam: PRESENT: deferred Neurological exam: PRESENT: awake Psychiatric exam: PRESENT: appropriate affect Skin exam: PRESENT: normal color, warm Results Laboratory Results: 02/18/18 08:32 02/18/18 15:40 02/18/18 02/18/18 02/18/18 03:07 04:47 08:32 WBC RBC Hgb Hct MCV MCH MCHC RDW Plt Count Seg Neutrophils % Lymphocytes % Monocytes % Eosinophils % Basophils % Absolute Neutrophils Absolute Lymphocytes Absolute Monocytes Absolute Eosinophils Absolute Basophils Carbonic Acid HCO3/H2CO3 Ratio ABG pH ABG pCO2 ABG pO2 ABG HCO3 ABG O2 Saturation ABG Base Excess FiO2 Sodium 135.8 L 138.2 Potassium 6.0 H* 6.4 H* Chloride 106 106 Carbon Dioxide 18 L 19 L Anion Gap 12 13 BUN 58 H 55 H Creatinine 3.70 H 3.38 H Est GFR ( Amer) 15 L 17 L Est GFR (Non-Af Amer) 13 L 14 L Glucose 81 87 Lactic Acid 1.2 Calcium 7.6 L 8.3 L Magnesium Total Bilirubin AST ALT Alkaline Phosphatase Total Protein Albumin 02/18/18 02/18/18 02/18/18 08:32 10:40 12:26 WBC 12.0 H RBC 3.73 Hgb 10.2 L Hct 31.8 L MCV 85 MCH 27.3 MCHC 32.1 RDW 15.1 H Plt Count 274 Seg Neutrophils % 65.0 Lymphocytes % 23.9 Monocytes % 5.3 Eosinophils % 5.5 Basophils % 0.3 Absolute Neutrophils 7.8 Absolute Lymphocytes 2.9 Absolute Monocytes 0.6 Absolute Eosinophils 0.7 H Absolute Basophils 0.0 Carbonic Acid 1.69 H HCO3/H2CO3 Ratio 14:1 ABG pH 7.24 L ABG pCO2 56.3 H ABG pO2 111.4 H ABG HCO3 23.7 ABG O2 Saturation 97.2 ABG Base Excess -3.9 FiO2 30% Sodium 140.5 Potassium 5.7 H Chloride 106 Carbon Dioxide 24 Anion Gap 11 BUN 49 H Creatinine 3.13 H Est GFR ( Amer) 19 L Est GFR (Non-Af Amer) 15 L Glucose 74 L Lactic Acid Calcium 8.3 L Magnesium Total Bilirubin 0.3 AST 44 H ALT 37 Alkaline Phosphatase 83 Total Protein 6.7 Albumin 3.3 L 02/18/18 02/18/18 15:40 15:40 WBC RBC Hgb Hct MCV MCH MCHC RDW Plt Count Seg Neutrophils % Lymphocytes % Monocytes % Eosinophils % Basophils % Absolute Neutrophils Absolute Lymphocytes Absolute Monocytes Absolute Eosinophils Absolute Basophils Carbonic Acid 1.59 H HCO3/H2CO3 Ratio 15:1 ABG pH 7.29 L ABG pCO2 52.9 H ABG pO2 121.8 H ABG HCO3 24.6 ABG O2 Saturation 97.9 ABG Base Excess -2.3 FiO2 ROOM AIR Sodium 139.9 Potassium 6.0 H* Chloride 108 H Carbon Dioxide 25 Anion Gap 7 BUN 50 H Creatinine 2.77 H Est GFR ( Amer) 21 L Est GFR (Non-Af Amer) 18 L Glucose 84 Lactic Acid Calcium 8.3 L Magnesium 2.2 Total Bilirubin AST ALT Alkaline Phosphatase Total Protein Albumin 02/18/18 02/18/18 02/18/18 03:07 03:07 08:32 Creatine Kinase 127 117 CK-MB (CK-2) 3.53 Troponin I < 0.012 02/18/18 02/18/18 02/18/18 08:32 15:40 15:40 Creatine Kinase 96 CK-MB (CK-2) 3.60 2.64 Troponin I < 0.012 < 0.012 Impressions: Abdomen/Pelvis CT 02/17/18 22:30 IMPRESSION: No acute intrathoracic finding. TECHNICAL DOCUMENTATION: Quality ID # 436: Final reports with documentation of one or more dose reduction techniques (e.g., Automated exposure control, adjustment of the mA and/or kV according to patient size, use of iterative reconstruction technique) 2010 [email or web address]- All Rights Reserved EXAM DESCRIPTION: CT ABDOMEN AND PELVIS WITHOUT IV CONTRAST COMPLETED DATE/TME: 02/17/2018 22:30 CLINICAL HISTORY: 57 years, Female, sepsis COMPARISON: None. TECHNIQUE: Contiguous axial images of the abdomen and pelvis were obtained without IV contrast followed by reconstruction images. This exam was performed according to our departmental dose-optimization program, which includes automated exposure control, adjustment of the mA and/or kV according to patient size and/or use of iterative reconstruction technique. Images stored on PACS. All CT scanners at this facility use dose modulation, iterative reconstruction, and/or weight based dosing when appropriate to reduce radiation dose to as low as reasonably achievable (ALARA). [facility]: Dose Right [facility]: CareDose [facility]: Dose Right [facility]: Teradose 4D [facility]: [facility] LIMITATIONS: None. FINDINGS: Liver: Within normal limits Gallbladder/Bile ducts: Cholecystectomy clips are seen in gallbladder fossa. No intra or extrahepatic duct dilatation. Spleen: Within normal limits Pancreas: Within normal limits Adrenal glands: Within normal limits Kidneys/Bladder: Again noted, absent right kidney. No left renal stones or hydronephrosis. Contracted bladder without significant findings. GI tract: Stable appearance of a large right abdominal wall hernia with herniated cecum, portions of the ascending colon and multiple small bowel loops. Abdominal wall defect measures 9.2 cm AP x 8.6 cm CC. The most lateral aspect of the hernia sac is outside field of view. The visualized portions of the hernia sac show no evidence of free fluid or bowel dilatation. No evidence of obstruction or active inflammatory process. No intra-abdominal collection. Uterus/adnexa: Anteverted uterus. No suspicious adnexal lesion. Vascular structures: Scattered vascular calcifications Free fluid: No free fluid. Lymph nodes: No radiographically enlarged lymph nodes Soft tissues: Large right abdominal wall hernia as described above. Incidentally noted left obturator externus intramuscular lipoma measuring 3 cm. Bones: No acute osseous finding. Mild degenerative changes at L3-L4. IMPRESSION: 1. No acute intra-abdominal finding 2. Stable large right abdominal wall hernia as described. 3. Absent right kidney TECHNICAL DOCUMENTATION: Quality ID # 436: Final reports with documentation of one or more dose reduction techniques (e.g., Automated exposure control, adjustment of the mA and/or kV according to patient size, use of iterative reconstruction technique) 2010 [email or web address]- All Rights Reserved Chest CT 02/17/18 22:30 IMPRESSION: No acute intrathoracic finding. TECHNICAL DOCUMENTATION: Quality ID # 436: Final reports with documentation of one or more dose reduction techniques (e.g., Automated exposure control, adjustment of the mA and/or kV according to patient size, use of iterative reconstruction technique) 2010 [email or web address]- All Rights Reserved EXAM DESCRIPTION: CT ABDOMEN AND PELVIS WITHOUT IV CONTRAST COMPLETED DATE/TME: 02/17/2018 22:30 CLINICAL HISTORY: 57 years, Female, sepsis COMPARISON: None. TECHNIQUE: Contiguous axial images of the abdomen and pelvis were obtained without IV contrast followed by reconstruction images. This exam was performed according to our departmental dose-optimization program, which includes automated exposure control, adjustment of the mA and/or kV according to patient size and/or use of iterative reconstruction technique. Images stored on PACS. All CT scanners at this facility use dose modulation, iterative reconstruction, and/or weight based dosing when appropriate to reduce radiation dose to as low as reasonably achievable (ALARA). [facility]: Dose Right [facility]: CareDose [facility]: Dose Right [facility]: Teradose 4D [facility]: [facility] LIMITATIONS: None. FINDINGS: Liver: Within normal limits Gallbladder/Bile ducts: Cholecystectomy clips are seen in gallbladder fossa. No intra or extrahepatic duct dilatation. Spleen: Within normal limits Pancreas: Within normal limits Adrenal glands: Within normal limits Kidneys/Bladder: Again noted, absent right kidney. No left renal stones or hydronephrosis. Contracted bladder without significant findings. GI tract: Stable appearance of a large right abdominal wall hernia with herniated cecum, portions of the ascending colon and multiple small bowel loops. Abdominal wall defect measures 9.2 cm AP x 8.6 cm CC. The most lateral aspect of the hernia sac is outside field of view. The visualized portions of the hernia sac show no evidence of free fluid or bowel dilatation. No evidence of obstruction or active inflammatory process. No intra-abdominal collection. Uterus/adnexa: Anteverted uterus. No suspicious adnexal lesion. Vascular structures: Scattered vascular calcifications Free fluid: No free fluid. Lymph nodes: No radiographically enlarged lymph nodes Soft tissues: Large right abdominal wall hernia as described above. Incidentally noted left obturator externus intramuscular lipoma measuring 3 cm. Bones: No acute osseous finding. Mild degenerative changes at L3-L4. IMPRESSION: 1. No acute intra-abdominal finding 2. Stable large right abdominal wall hernia as described. 3. Absent right kidney TECHNICAL DOCUMENTATION: Quality ID # 436: Final reports with documentation of one or more dose reduction techniques (e.g., Automated exposure control, adjustment of the mA and/or kV according to patient size, use of iterative reconstruction technique) 2010 [email or web address]- All Rights Reserved Chest X-Ray 02/18/18 01:45 IMPRESSION: No acute cardiopulmonary findings. Assessment & Plan - Diagnosis (1) incarcerated hernia non obstructing Is this a current diagnosis for this admission?: Yes - Time Time Spent: 30 to 50 Minutes - Plan Summary Plan Summary: Has a chronic non obstructing incarcerated incisional hernia. No indication to repair at this time in this morbidly obese patient with respiratory issues.
[2018-02-18] MEDS ORDERED: INSULIN DEGLUDEC 80 UNIT SQ SCH (22:00)
[2018-02-18] MEDS ORDERED: (PENDING PHARMACY ID) (Ranitidine Hcl [Zantac 150 Mg Tablet] 150 MG) PO SCH (22:00)
[2018-02-19] MEDS: SODIUM POLYSTYRENE SULFONATE 15 GM/60 ML PR SCH ×2 (00:09→09:00)
[2018-02-19] MEDS: ACETAMINOPHEN 325 MG TABLET PO PRN (01:27)
[2018-02-19] MEDS: IMIPENEM/CILASTATIN SODIUM 500 MG in NORMAL SALINE 100 ML IV SCH ×4 (03:11→22:22)
[2018-02-19] MEDS: NORMAL SALINE 1000 ML 1,000 ML IV PRN ×2 (05:22→22:30)
[2018-02-19] MEDS: LANSOPRAZOLE 30 MG TAB.RAP.DR PO SCH (05:23)
[2018-02-19] MEDS: GABAPENTIN 300 MG CAPSULE PO SCH ×3 (05:23→22:22)
[2018-02-19 06:12] LABS: ABSOLUTE BASOPHILS # (AUTO) 0.1 10^3/uL (0.0-0.2); ABSOLUTE EOSINOPHILS # (AUTO) 0.7 10^3/uL (0.0-0.6); ABSOLUTE LYMPHOCYTES (AUTO) 1.9 10^3/uL (0.5-4.7); ABSOLUTE MONOCYTES (AUTO) 0.4 10^3/uL (0.1-1.4); ABSOLUTE NEUT (AUTO) 5.2 10^3/uL (1.7-8.2); BASOPHILS % (AUTO) 0.8 % (0-2); HEMATOCRIT 28.5 % (36.0-47.0); HEMOGLOBIN 9.5 g/dL (12.0-15.5); LYMPHOCYTES % (AUTO) 23.1 % (13-45); MEAN CORPUSCULAR HEMOGLOBIN 28.4 pg (27.0-33.4); MEAN CORPUSCULAR HGB CONC 33.2 g/dL (32.0-36.0); MEAN CORPUSCULAR VOLUME 86 fl (80-97); MONOCYTES % (AUTO) 5.3 % (3-13); PLATELET COUNT 281 10^3/uL (150-450); RED BLOOD COUNT 3.33 10^6/uL (3.72-5.28); RED CELL DISTRIBUTION WIDTH 14.9 % (11.5-14.0); SEGMENTED NEUTROPHILS % (AUTO) 62.8 % (42-78); TOTAL CELLS COUNTED % (AUTO) 100 %; WHITE BLOOD COUNT 8.3 10^3/uL (4.0-10.5)
[2018-02-19 07:14] LABS: ANION GAP 12 (5-19); BLOOD UREA NITROGEN 40 mg/dL (7-20); CALCIUM 8.5 mg/dL (8.4-10.2); CARBON DIOXIDE 24 mmol/L (22-30); CHLORIDE 109 mmol/L (98-107); GLUCOSE 121 mg/dL (75-110); POTASSIUM 5.4 mmol/L (3.6-5.0); SODIUM 144.8 mmol/L (137-145)
[2018-02-19] MEDS: FERROUS SULFATE 325 MG TABLET PO SCH ×3 (07:44→17:52)
[2018-02-19 07:58] LABS: ARTERIAL BLOOD BASE EXCESS 1.8 mmol/L; ARTERIAL BLOOD H2CO3 1.18 mmol/L (1.05-1.35); ARTERIAL BLOOD O2 SATURATION 98.9 % (94-98); ARTERIAL BLOOD PCO2 39.1 mmHg (35-45); ARTERIAL BLOOD PH 7.44 (7.35-7.45); ARTERIAL BLOOD PO2 142.2 mmHg (80-100); ARTERIAL BLOOD TOTAL CO2 27.2 mmol/L (21-25)
[2018-02-19] MEDS ORDERED: FLUOXETINE HCL 60 MG PO SCH (08:00)
[2018-02-19 08:01] LABS: ARTERIAL BLOOD FIO2 30%
[2018-02-19] MEDS: FLUOXETINE HCL 20 MG CAPSULE PO SCH (08:51)
[2018-02-19] MEDS: PANTOPRAZOLE SODIUM 40 MG VIAL IV SCH ×2 (08:59→22:21)
[2018-02-19] MEDS: POLYETHYLENE GLYCOL 3350 POWDER 17 GM/1 PACKET PO SCH (08:59)
[2018-02-19] MEDS: ASPIRIN 325 MG TABLET, ENT COATED PO SCH (09:00)
[2018-02-19] MEDS: FUROSEMIDE 40 MG TABLET PO SCH (09:00)
[2018-02-19] MEDS: ISOSORBIDE MONONITRATE 30 MG TAB.ER.24H PO SCH (09:00)
--- NOTE | 2018-02-19 09:00 | PDOC PROGRESS REPORT ---
Subjective Progress Note for:: 02/19/18 Subjective:: Patient is currently doing fair Patient's ABG is much improving Patient's potassium is more improving Patient is more alert awake Patient's denied any chest pain denied any shortness of the breath Reason For Visit: SEPSIS/CHRONIC CHF/CHRONIC KIDNEY DISEASE Physical Exam Vital Signs: Temp Pulse Resp BP Pulse Ox 98.8 F 88 29 H 151/96 H 94 02/19/18 07:17 02/19/18 03:01 02/19/18 07:17 02/19/18 07:17 02/19/18 08:00 Intake & Output 02/18/18 02/19/18 02/20/18 06:59 06:59 06:59 Intake Total 1100 1298 350 Output Total 5725 300 Balance 1100 -4427 50 Weight 138.5 kg General appearance: PRESENT: no acute distress, well-developed, well-nourished Head exam: PRESENT: atraumatic, normocephalic Eye exam: PRESENT: conjunctiva pink, EOMI, PERRLA. ABSENT: scleral icterus Ear exam: PRESENT: normal external ear exam Mouth exam: PRESENT: moist, tongue midline Neck exam: PRESENT: full ROM. ABSENT: carotid bruit, JVD, lymphadenopathy, thyromegaly Respiratory exam: PRESENT: clear to auscultation tarsha Cardiovascular exam: PRESENT: RRR. ABSENT: diastolic murmur, rubs, systolic murmur Pulses: PRESENT: normal dorsalis pedis pul, +2 pedal pulses bilateral Vascular exam: PRESENT: normal capillary refill GI/Abdominal exam: PRESENT: normal bowel sounds, soft. ABSENT: distended, guarding, mass, organolmegaly, rebound, tenderness Rectal exam: PRESENT: deferred Extremities exam: ABSENT: pedal edema Neurological exam: PRESENT: alert, awake, oriented to person, oriented to place , oriented to time, oriented to situation, CN II-XII grossly intact. ABSENT: motor sensory deficit Psychiatric exam: PRESENT: appropriate affect, normal mood. ABSENT: homicidal ideation, suicidal ideation Skin exam: PRESENT: dry, intact, warm. ABSENT: cyanosis, rash Results Laboratory Results: 02/19/18 05:42 02/19/18 05:42 02/18/18 02/18/18 02/18/18 08:32 08:32 10:40 WBC 12.0 H RBC 3.73 Hgb 10.2 L Hct 31.8 L MCV 85 MCH 27.3 MCHC 32.1 RDW 15.1 H Plt Count 274 Seg Neutrophils % 65.0 Lymphocytes % 23.9 Monocytes % 5.3 Eosinophils % 5.5 Basophils % 0.3 Absolute Neutrophils 7.8 Absolute Lymphocytes 2.9 Absolute Monocytes 0.6 Absolute Eosinophils 0.7 H Absolute Basophils 0.0 Carbonic Acid 1.69 H HCO3/H2CO3 Ratio 14:1 ABG pH 7.24 L ABG pCO2 56.3 H ABG pO2 111.4 H ABG HCO3 23.7 ABG O2 Saturation 97.2 ABG Base Excess -3.9 FiO2 30% Sodium 138.2 Potassium 6.4 H* Chloride 106 Carbon Dioxide 19 L Anion Gap 13 BUN 55 H Creatinine 3.38 H Est GFR ( Amer) 17 L Est GFR (Non-Af Amer) 14 L Glucose 87 Lactic Acid Calcium 8.3 L Magnesium Total Bilirubin AST ALT Alkaline Phosphatase Total Protein Albumin 02/18/18 02/18/18 02/18/18 12:26 15:40 15:40 WBC RBC Hgb Hct MCV MCH MCHC RDW Plt Count Seg Neutrophils % Lymphocytes % Monocytes % Eosinophils % Basophils % Absolute Neutrophils Absolute Lymphocytes Absolute Monocytes Absolute Eosinophils Absolute Basophils Carbonic Acid 1.59 H HCO3/H2CO3 Ratio 15:1 ABG pH 7.29 L ABG pCO2 52.9 H ABG pO2 121.8 H ABG HCO3 24.6 ABG O2 Saturation 97.9 ABG Base Excess -2.3 FiO2 ROOM AIR Sodium 140.5 139.9 Potassium 5.7 H 6.0 H* Chloride 106 108 H Carbon Dioxide 24 25 Anion Gap 11 7 BUN 49 H 50 H Creatinine 3.13 H 2.77 H Est GFR ( Amer) 19 L 21 L Est GFR (Non-Af Amer) 15 L 18 L Glucose 74 L 84 Lactic Acid Calcium 8.3 L 8.3 L Magnesium 2.2 Total Bilirubin 0.3 AST 44 H ALT 37 Alkaline Phosphatase 83 Total Protein 6.7 Albumin 3.3 L 02/19/18 02/19/18 02/19/18 05:42 05:42 05:42 WBC 8.3 RBC 3.33 L Hgb 9.5 L Hct 28.5 L MCV 86 MCH 28.4 MCHC 33.2 RDW 14.9 H Plt Count 281 Seg Neutrophils % 62.8 Lymphocytes % 23.1 Monocytes % 5.3 Eosinophils % 8.0 H Basophils % 0.8 Absolute Neutrophils 5.2 Absolute Lymphocytes 1.9 Absolute Monocytes 0.4 Absolute Eosinophils 0.7 H Absolute Basophils 0.1 Carbonic Acid Cancelled HCO3/H2CO3 Ratio Cancelled ABG pH Cancelled ABG pCO2 Cancelled ABG pO2 Cancelled ABG HCO3 Cancelled ABG O2 Saturation Cancelled ABG Base Excess Cancelled FiO2 Cancelled Sodium 144.8 Potassium 5.4 H Chloride 109 H Carbon Dioxide 24 Anion Gap 12 BUN 40 H Creatinine 2.01 H Est GFR ( Amer) 31 L Est GFR (Non-Af Amer) 26 L Glucose 121 H Lactic Acid Calcium 8.5 Magnesium Total Bilirubin AST ALT Alkaline Phosphatase Total Protein Albumin 02/19/18 02/19/18 05:42 07:43 WBC RBC Hgb Hct MCV MCH MCHC RDW Plt Count Seg Neutrophils % Lymphocytes % Monocytes % Eosinophils % Basophils % Absolute Neutrophils Absolute Lymphocytes Absolute Monocytes Absolute Eosinophils Absolute Basophils Carbonic Acid 1.18 HCO3/H2CO3 Ratio 22:1 ABG pH 7.44 ABG pCO2 39.1 ABG pO2 142.2 H ABG HCO3 26.0 ABG O2 Saturation 98.9 H ABG Base Excess 1.8 FiO2 30% Sodium Potassium Chloride Carbon Dioxide Anion Gap BUN Creatinine Est GFR ( Amer) Est GFR (Non-Af Amer) Glucose Lactic Acid 1.1 Calcium Magnesium Total Bilirubin AST ALT Alkaline Phosphatase Total Protein Albumin 02/18/18 02/18/18 02/18/18 03:07 03:07 08:32 Creatine Kinase 127 117 CK-MB (CK-2) 3.53 Troponin I < 0.012 02/18/18 02/18/18 02/18/18 08:32 15:40 15:40 Creatine Kinase 96 CK-MB (CK-2) 3.60 2.64 Troponin I < 0.012 < 0.012 Impressions: Abdomen/Pelvis CT 02/17/18 22:30 IMPRESSION: No acute intrathoracic finding. TECHNICAL DOCUMENTATION: Quality ID # [id number]: Final reports with documentation of one or more dose reduction techniques (e.g., Automated exposure control, adjustment of the mA and/or kV according to patient size, use of iterative reconstruction technique) 2010 [employer]- All Rights Reserved EXAM DESCRIPTION: CT ABDOMEN AND PELVIS WITHOUT IV CONTRAST COMPLETED DATE/TME: 02/17/2018 22:30 CLINICAL HISTORY: 57 years, Female, sepsis COMPARISON: None. TECHNIQUE: Contiguous axial images of the abdomen and pelvis were obtained without IV contrast followed by reconstruction images. This exam was performed according to our departmental dose-optimization program, which includes automated exposure control, adjustment of the mA and/or kV according to patient size and/or use of iterative reconstruction technique. Images stored on PACS. All CT scanners at this facility use dose modulation, iterative reconstruction, and/or weight based dosing when appropriate to reduce radiation dose to as low as reasonably achievable (ALARA). [facility]: Dose Right [facility]: CareDose [facility]: Dose Right [facility]: Teradose 4D [facility]: Fan TV LIMITATIONS: None. FINDINGS: Liver: Within normal limits Gallbladder/Bile ducts: Cholecystectomy clips are seen in gallbladder fossa. No intra or extrahepatic duct dilatation. Spleen: Within normal limits Pancreas: Within normal limits Adrenal glands: Within normal limits Kidneys/Bladder: Again noted, absent right kidney. No left renal stones or hydronephrosis. Contracted bladder without significant findings. GI tract: Stable appearance of a large right abdominal wall hernia with herniated cecum, portions of the ascending colon and multiple small bowel loops. Abdominal wall defect measures 9.2 cm AP x 8.6 cm CC. The most lateral aspect of the hernia sac is outside field of view. The visualized portions of the hernia sac show no evidence of free fluid or bowel dilatation. No evidence of obstruction or active inflammatory process. No intra-abdominal collection. Uterus/adnexa: Anteverted uterus. No suspicious adnexal lesion. Vascular structures: Scattered vascular calcifications Free fluid: No free fluid. Lymph nodes: No radiographically enlarged lymph nodes Soft tissues: Large right abdominal wall hernia as described above. Incidentally noted left obturator externus intramuscular lipoma measuring 3 cm. Bones: No acute osseous finding. Mild degenerative changes at L3-L4. IMPRESSION: 1. No acute intra-abdominal finding 2. Stable large right abdominal wall hernia as described. 3. Absent right kidney TECHNICAL DOCUMENTATION: Quality ID # [id number]: Final reports with documentation of one or more dose reduction techniques (e.g., Automated exposure control, adjustment of the mA and/or kV according to patient size, use of iterative reconstruction technique) 2010 [employer]- All Rights Reserved Chest CT 02/17/18 22:30 IMPRESSION: No acute intrathoracic finding. TECHNICAL DOCUMENTATION: Quality ID # [id number]: Final reports with documentation of one or more dose reduction techniques (e.g., Automated exposure control, adjustment of the mA and/or kV according to patient size, use of iterative reconstruction technique) 2010 [employer]- All Rights Reserved EXAM DESCRIPTION: CT ABDOMEN AND PELVIS WITHOUT IV CONTRAST COMPLETED DATE/TME: 02/17/2018 22:30 CLINICAL HISTORY: 57 years, Female, sepsis COMPARISON: None. TECHNIQUE: Contiguous axial images of the abdomen and pelvis were obtained without IV contrast followed by reconstruction images. This exam was performed according to our departmental dose-optimization program, which includes automated exposure control, adjustment of the mA and/or kV according to patient size and/or use of iterative reconstruction technique. Images stored on PACS. All CT scanners at this facility use dose modulation, iterative reconstruction, and/or weight based dosing when appropriate to reduce radiation dose to as low as reasonably achievable (ALARA). [facility]: Dose Right [facility]: CareDose [facility]: Dose Right [facility]: Teradose 4D [facility]: Fan TV LIMITATIONS: None. FINDINGS: Liver: Within normal limits Gallbladder/Bile ducts: Cholecystectomy clips are seen in gallbladder fossa. No intra or extrahepatic duct dilatation. Spleen: Within normal limits Pancreas: Within normal limits Adrenal glands: Within normal limits Kidneys/Bladder: Again noted, absent right kidney. No left renal stones or hydronephrosis. Contracted bladder without significant findings. GI tract: Stable appearance of a large right abdominal wall hernia with herniated cecum, portions of the ascending colon and multiple small bowel loops. Abdominal wall defect measures 9.2 cm AP x 8.6 cm CC. The most lateral aspect of the hernia sac is outside field of view. The visualized portions of the hernia sac show no evidence of free fluid or bowel dilatation. No evidence of obstruction or active inflammatory process. No intra-abdominal collection. Uterus/adnexa: Anteverted uterus. No suspicious adnexal lesion. Vascular structures: Scattered vascular calcifications Free fluid: No free fluid. Lymph nodes: No radiographically enlarged lymph nodes Soft tissues: Large right abdominal wall hernia as described above. Incidentally noted left obturator externus intramuscular lipoma measuring 3 cm. Bones: No acute osseous finding. Mild degenerative changes at L3-L4. IMPRESSION: 1. No acute intra-abdominal finding 2. Stable large right abdominal wall hernia as described. 3. Absent right kidney TECHNICAL DOCUMENTATION: Quality ID # [id number]: Final reports with documentation of one or more dose reduction techniques (e.g., Automated exposure control, adjustment of the mA and/or kV according to patient size, use of iterative reconstruction technique) 2010 [employer]- All Rights Reserved Chest X-Ray 02/18/18 01:45 IMPRESSION: No acute cardiopulmonary findings. Assessment & Plan - Diagnosis (1) Respiratory failure Qualifiers: Chronicity: acute on chronic Is this a current diagnosis for this admission?: Yes Plan: Continues the current medication follow with the pulmonary (2) Chronic kidney disease (CKD) stage G4/A1, severely decreased glomerular filtration rate (GFR) between 15-29 mL/min/1.73 square meter and albuminuria creatinine ratio less than 30 mg/g Is this a current diagnosis for this admission?: Yes Plan: Consult Dr. Kiran (3) Hyperkalemia Is this a current diagnosis for this admission?: Yes Plan: Continuous Kayexalate by enema (4) Hypotension Qualifiers: Hypotension type: unspecified hypotension type Qualified Code(s): I95.9 - Hypotension, unspecified Is this a current diagnosis for this admission?: Yes (5) Obstructive sleep apnea of adult Is this a current diagnosis for this admission?: Yes Plan: Currently on a BiPAP (6) Sepsis Qualifiers: Sepsis type: sepsis due to unspecified organism Qualified Code(s): A41.9 - Sepsis, unspecified organism Is this a current diagnosis for this admission?: Yes Plan: Continues to IV Primaxin wait for culture and sensitivity (7) Anemia in chronic kidney disease (CKD) Qualifiers: Chronic kidney disease stage: stage 4 (severe) Qualified Code(s): N18.4 - Chronic kidney disease, stage 4 (severe) Is this a current diagnosis for this admission?: Yes (8) Diabetes mellitus type 2 in obese Is this a current diagnosis for this admission?: Yes (9) CAD (coronary artery disease) Qualifiers: Coronary Disease-Associated Artery/Lesion type: unspecified vessel or lesion type [place] vs. transplanted heart: [place] heart Associated angina: with unspecified angina Qualified Code(s): I25.119 - Atherosclerotic heart disease of [place] coronary artery with unspecified angina pectoris Is this a current diagnosis for this admission?: Yes Plan: all stable follow with the pulmonary - Time Time Spent with patient: 15-24 minutes Medications reviewed and adjusted accordingly: Yes Anticipated discharge: Other Within: Other - Inpatient Certification I certify that my determination is in accordance with my understanding of Medicare's requirements for reasonable and necessary INPATIENT services [42 CFR 412.3e].: Yes Medical Necessity: Need Close Monitoring Due to Risk of Patient Decompensation, Need for IV Antibiotics Post Hospital Care: D/C [facility] Documentation - Plan Summary Plan Summary: Currently doing well If remains stable transfer the patient to the [facility]
[2018-02-19] MEDS: METOPROLOL SUCCINATE 50 MG TAB.SR.24H PO SCH (09:01)
[2018-02-19] MEDS: ENOXAPARIN SODIUM INJ 30 MG/0.3 ML DISP.SYRIN SUBCUT SCH (09:01)
--- NOTE | 2018-02-19 11:41 | XCELERA REPORT ---
[address] [address] Transthoracic Echocardiogram Report Name: JESU ORR Age: 57 yrs Gender: Female : 1960 Patient Status: Inpatient Patient Location: [place] [address]^A Study Date: 02/18/2018 02:11 PM Height: 66 in Weight: 286 lb BSA: 2.3 m2 Procedure: A complete two-dimensional transthoracic echocardiogram was performed (2D, M-mode, spectral and color flow Doppler). The study was technically adequate with some images being suboptimal in quality. Reason For Study: hypotension/cad Ordering Physician: СВЕТЛАНА CORRIGAN Performed By: Malorie Steve Interpretation Summary The left ventricular ejection fraction is normal. There is mild concentric left ventricular hypertrophy. The left ventricle is grossly normal size. Doppler measurements suggest pseudonormalized left ventricular relaxation, which is associated with grade II/IV or mild to moderate diastolic dysfunction Wall motion cannot be accurately commented on, but no definite regional wall motion abnormalities noted. The right ventricle is mild to moderately dilated. The right ventricular systolic function is normal. The right atrium is normal in size The left atrial size is normal. There is a trace to mild amount of mitral regurgitation There is no mitral valve stenosis. There is a trace amount of aortic regurgitation There is no aortic valve stenosis There is a trace amount of tricuspid regurgitation Tricuspid regurgitation jet envelope not well defined to measure RV systolic pressure accurately. The aortic root is not well visualized but is probably normal size. The inferior vena cava appeared normal and decreased < 50% with respiration (RAP 10-15 mmHg) Minimal pericardial effusion. MMode/2D Measurements & Calculations RVDd: 4.7 cm LVIDd: 4.9 cm FS: 33.1 % Ao root diam: 2.9 cm IVSd: 1.1 cm LVIDs: 3.3 cm EDV(Teich): 110.8 ml Ao root area: 6.7 cm2 LVPWd: 1.1 cm ESV(Teich): 42.6 ml LA dimension: 3.3 cm EF(Teich): 61.6 % Doppler Measurements & Calculations MV E max katie: MV P1/2t max katie: Ao V2 max: LV V1 max P.0 cm/sec 119.0 cm/sec 171.6 cm/sec 7.1 mmHg MV A max katie: MV P1/2t: 49.4 msec Ao max PG: LV V1 max: 120.4 cm/sec MVA(P1/2t): 4.5 cm2 11.8 mmHg 132.8 cm/sec MV E/A: 0.99 MV dec slope: 705.3 cm/sec2 MV dec time: 0.16 sec PA V2 max: MV P1/2t-pr_phl: 109.1 cm/sec 49.4 msec PA max P.8 mmHg Left Ventricle The left ventricle is grossly normal size. There is mild concentric left ventricular hypertrophy. The left ventricular ejection fraction is normal. Doppler measurements suggest pseudonormalized left ventricular relaxation, which is associated with grade II/IV or mild to moderate diastolic dysfunction. Wall motion cannot be accurately commented on, but no definite regional wall motion abnormalities noted. Right Ventricle The right ventricle is mild to moderately dilated. There is normal right ventricular wall thickness. The right ventricular systolic function is normal. Atria The right atrium is normal in size. The left atrial size is normal. The interatrial septum is intact with no evidence for an atrial septal defect. Mitral Valve The mitral valve is grossly normal. There is no mitral valve stenosis. There is a trace to mild amount of mitral regurgitation. Aortic Valve The aortic valve is grossly normal. There is no aortic valve stenosis. There is a trace amount of aortic regurgitation. Tricuspid Valve The tricuspid valve is not well visualized, but is grossly normal. There is no tricuspid stenosis. There is a trace amount of tricuspid regurgitation. Tricuspid regurgitation jet envelope not well defined to measure RV systolic pressure accurately. Pulmonic Valve The pulmonic valve is not well visualized. Great Vessels The aortic root is not well visualized but is probably normal size. The inferior vena cava appeared normal and decreased < 50% with respiration (RAP 10-15 mmHg). Effusions Minimal pericardial effusion. : СВЕТЛАНА CORRIGAN > Andreas Leach
[2018-02-19] MEDS: LIDOCAINE 5% (700 MG) TRANSDERMAL ADH..PATCH TP SCH (12:23)
[2018-02-19] MEDS: RANOLAZINE 500 MG TAB.SR.12H PO SCH ×2 (12:24→22:26)
--- NOTE | 2018-02-19 13:21 | PDOC PROGRESS REPORT ---
Subjective Progress Note for:: 02/19/18 Subjective:: Patient seems to be doing better with gradual improvement. Patient still very fatigued and tired. Dyspnea is much improved. Potassium level is now down. Patient I am told had a large bowel movement this morning. Pt is denying any chest arm or neck discomfort. Patient denying any PND, orthopnea. Patient denied any sustained palpitations, dizziness, syncope, near syncope. Patient denying any fever chills. Patient denying any other significant discomfort. Patient is maintaining sinus rhythm. Review of systems: Rest review of systems negative. Medications: Medications have been reviewed. Reason For Visit: SEPSIS/CHRONIC CHF/CHRONIC KIDNEY DISEASE Physical Exam Vital Signs: Temp Pulse Resp BP Pulse Ox 98.8 F 88 31 H 136/86 H 91 L 02/19/18 12:00 02/19/18 03:01 02/19/18 12:00 02/19/18 11:17 02/19/18 12:00 Intake & Output 02/18/18 02/19/18 02/20/18 06:59 06:59 06:59 Intake Total 1100 1398 550 Output Total 5725 1500 Balance 1100 -4327 -950 Weight 138.5 kg Exam: GENERAL: well-nourished and in no acute distress. Alert and oriented x3 HEAD: Atraumatic, normocephalic. EYES: Pupils equal round and reactive to light, extraocular movements intact, sclera anicteric, conjunctiva are normal. ENT: TMs normal, nares patent, oropharynx clear without exudates. Moist mucous membranes. No oral ulcerations or bleeding gums noted NECK: supple without lymphadenopathy. Trachea is central. No cervical or axillary lymphadenopathy noted. Carotids are 2+, JVD WNL LUNGS: Respiration seems nonlabored, no significant accessory muscle action noted. Bibasilar fine crackles are noted. No wheezes rales or rhonchi noted. No significant dullness noted on percussion. CHEST: Palpation of the chest wall shows no significant chest wall tenderness. HEART: [employer], No PSH, 1/6 PAO aortic area, 1/6 meza systolic murmur mitral area, no rubs, no gallops. ABDOMEN: Soft, no significant tenderness appreciated, normoactive bowel sounds. No guarding, no rebound. No rigidity noted . No masses appreciated. EXTREMITIES: Pedal pulses are 1-2+, no calf tenderness noted. No clubbing or cyanosis. 1+ pedal edema noted NEUROLOGICAL: Focused neurological exam showed no significant neurologic deficit. Normal speech, no focal weakness appreciated. PSYCH: Normal mood, normal affect. Judgment and insight within normal limits. SKIN: No significant ecchymosis, skin is noted to be warm. Some punctate rashes noted MUSCULOSKELETAL EXAM: No significant acute joint swelling noted. Results Laboratory Results: 02/19/18 05:42 02/19/18 05:42 02/18/18 02/18/18 02/18/18 12:26 15:40 15:40 WBC RBC Hgb Hct MCV MCH MCHC RDW Plt Count Seg Neutrophils % Lymphocytes % Monocytes % Eosinophils % Basophils % Absolute Neutrophils Absolute Lymphocytes Absolute Monocytes Absolute Eosinophils Absolute Basophils Carbonic Acid 1.59 H HCO3/H2CO3 Ratio 15:1 ABG pH 7.29 L ABG pCO2 52.9 H ABG pO2 121.8 H ABG HCO3 24.6 ABG O2 Saturation 97.9 ABG Base Excess -2.3 FiO2 ROOM AIR Sodium 140.5 139.9 Potassium 5.7 H 6.0 H* Chloride 106 108 H Carbon Dioxide 24 25 Anion Gap 11 7 BUN 49 H 50 H Creatinine 3.13 H 2.77 H Est GFR ( Amer) 19 L 21 L Est GFR (Non-Af Amer) 15 L 18 L Glucose 74 L 84 Lactic Acid Calcium 8.3 L 8.3 L Magnesium 2.2 Total Bilirubin 0.3 AST 44 H ALT 37 Alkaline Phosphatase 83 Total Protein 6.7 Albumin 3.3 L 02/19/18 02/19/18 02/19/18 05:42 05:42 05:42 WBC 8.3 RBC 3.33 L Hgb 9.5 L Hct 28.5 L MCV 86 MCH 28.4 MCHC 33.2 RDW 14.9 H Plt Count 281 Seg Neutrophils % 62.8 Lymphocytes % 23.1 Monocytes % 5.3 Eosinophils % 8.0 H Basophils % 0.8 Absolute Neutrophils 5.2 Absolute Lymphocytes 1.9 Absolute Monocytes 0.4 Absolute Eosinophils 0.7 H Absolute Basophils 0.1 Carbonic Acid Cancelled HCO3/H2CO3 Ratio Cancelled ABG pH Cancelled ABG pCO2 Cancelled ABG pO2 Cancelled ABG HCO3 Cancelled ABG O2 Saturation Cancelled ABG Base Excess Cancelled FiO2 Cancelled Sodium 144.8 Potassium 5.4 H Chloride 109 H Carbon Dioxide 24 Anion Gap 12 BUN 40 H Creatinine 2.01 H Est GFR ( Amer) 31 L Est GFR (Non-Af Amer) 26 L Glucose 121 H Lactic Acid Calcium 8.5 Magnesium Total Bilirubin AST ALT Alkaline Phosphatase Total Protein Albumin 02/19/18 02/19/18 05:42 07:43 WBC RBC Hgb Hct MCV MCH MCHC RDW Plt Count Seg Neutrophils % Lymphocytes % Monocytes % Eosinophils % Basophils % Absolute Neutrophils Absolute Lymphocytes Absolute Monocytes Absolute Eosinophils Absolute Basophils Carbonic Acid 1.18 HCO3/H2CO3 Ratio 22:1 ABG pH 7.44 ABG pCO2 39.1 ABG pO2 142.2 H ABG HCO3 26.0 ABG O2 Saturation 98.9 H ABG Base Excess 1.8 FiO2 30% Sodium Potassium Chloride Carbon Dioxide Anion Gap BUN Creatinine Est GFR ( Amer) Est GFR (Non-Af Amer) Glucose Lactic Acid 1.1 Calcium Magnesium Total Bilirubin AST ALT Alkaline Phosphatase Total Protein Albumin 02/18/18 02/18/18 02/18/18 03:07 03:07 08:32 Creatine Kinase 127 117 CK-MB (CK-2) 3.53 Troponin I < 0.012 02/18/18 02/18/18 02/18/18 08:32 15:40 15:40 Creatine Kinase 96 CK-MB (CK-2) 3.60 2.64 Troponin I < 0.012 < 0.012 EKG Comments: Shows sinus rhythm without any sustained tachycardia or bradycardia. Impressions: Abdomen/Pelvis CT 02/17/18 22:30 IMPRESSION: No acute intrathoracic finding. TECHNICAL DOCUMENTATION: Quality ID # [id number]: Final reports with documentation of one or more dose reduction techniques (e.g., Automated exposure control, adjustment of the mA and/or kV according to patient size, use of iterative reconstruction technique) 2010 [employer]- All Rights Reserved EXAM DESCRIPTION: CT ABDOMEN AND PELVIS WITHOUT IV CONTRAST COMPLETED DATE/TME: 02/17/2018 22:30 CLINICAL HISTORY: 57 years, Female, sepsis COMPARISON: None. TECHNIQUE: Contiguous axial images of the abdomen and pelvis were obtained without IV contrast followed by reconstruction images. This exam was performed according to our departmental dose-optimization program, which includes automated exposure control, adjustment of the mA and/or kV according to patient size and/or use of iterative reconstruction technique. Images stored on PACS. All CT scanners at this facility use dose modulation, iterative reconstruction, and/or weight based dosing when appropriate to reduce radiation dose to as low as reasonably achievable (ALARA). [facility]: Dose Right [facility]: CareDose [facility]: Dose Right [facility]: Teradose 4D [facility]: [employer] LIMITATIONS: None. FINDINGS: Liver: Within normal limits Gallbladder/Bile ducts: Cholecystectomy clips are seen in gallbladder fossa. No intra or extrahepatic duct dilatation. Spleen: Within normal limits Pancreas: Within normal limits Adrenal glands: Within normal limits Kidneys/Bladder: Again noted, absent right kidney. No left renal stones or hydronephrosis. Contracted bladder without significant findings. GI tract: Stable appearance of a large right abdominal wall hernia with herniated cecum, portions of the ascending colon and multiple small bowel loops. Abdominal wall defect measures 9.2 cm AP x 8.6 cm CC. The most lateral aspect of the hernia sac is outside field of view. The visualized portions of the hernia sac show no evidence of free fluid or bowel dilatation. No evidence of obstruction or active inflammatory process. No intra-abdominal collection. Uterus/adnexa: Anteverted uterus. No suspicious adnexal lesion. Vascular structures: Scattered vascular calcifications Free fluid: No free fluid. Lymph nodes: No radiographically enlarged lymph nodes Soft tissues: Large right abdominal wall hernia as described above. Incidentally noted left obturator externus intramuscular lipoma measuring 3 cm. Bones: No acute osseous finding. Mild degenerative changes at L3-L4. IMPRESSION: 1. No acute intra-abdominal finding 2. Stable large right abdominal wall hernia as described. 3. Absent right kidney TECHNICAL DOCUMENTATION: Quality ID # [id number]: Final reports with documentation of one or more dose reduction techniques (e.g., Automated exposure control, adjustment of the mA and/or kV according to patient size, use of iterative reconstruction technique) 2010 [employer]- All Rights Reserved Chest CT 02/17/18 22:30 IMPRESSION: No acute intrathoracic finding. TECHNICAL DOCUMENTATION: Quality ID # [id number]: Final reports with documentation of one or more dose reduction techniques (e.g., Automated exposure control, adjustment of the mA and/or kV according to patient size, use of iterative reconstruction technique) 2010 [employer]- All Rights Reserved EXAM DESCRIPTION: CT ABDOMEN AND PELVIS WITHOUT IV CONTRAST COMPLETED DATE/TME: 02/17/2018 22:30 CLINICAL HISTORY: 57 years, Female, sepsis COMPARISON: None. TECHNIQUE: Contiguous axial images of the abdomen and pelvis were obtained without IV contrast followed by reconstruction images. This exam was performed according to our departmental dose-optimization program, which includes automated exposure control, adjustment of the mA and/or kV according to patient size and/or use of iterative reconstruction technique. Images stored on PACS. All CT scanners at this facility use dose modulation, iterative reconstruction, and/or weight based dosing when appropriate to reduce radiation dose to as low as reasonably achievable (ALARA). [facility]: Dose Right [facility]: CareDose [facility]: Dose Right [facility]: Teradose 4D [facility]: [email or web address] LIMITATIONS: None. FINDINGS: Liver: Within normal limits Gallbladder/Bile ducts: Cholecystectomy clips are seen in gallbladder fossa. No intra or extrahepatic duct dilatation. Spleen: Within normal limits Pancreas: Within normal limits Adrenal glands: Within normal limits Kidneys/Bladder: Again noted, absent right kidney. No left renal stones or hydronephrosis. Contracted bladder without significant findings. GI tract: Stable appearance of a large right abdominal wall hernia with herniated cecum, portions of the ascending colon and multiple small bowel loops. Abdominal wall defect measures 9.2 cm AP x 8.6 cm CC. The most lateral aspect of the hernia sac is outside field of view. The visualized portions of the hernia sac show no evidence of free fluid or bowel dilatation. No evidence of obstruction or active inflammatory process. No intra-abdominal collection. Uterus/adnexa: Anteverted uterus. No suspicious adnexal lesion. Vascular structures: Scattered vascular calcifications Free fluid: No free fluid. Lymph nodes: No radiographically enlarged lymph nodes Soft tissues: Large right abdominal wall hernia as described above. Incidentally noted left obturator externus intramuscular lipoma measuring 3 cm. Bones: No acute osseous finding. Mild degenerative changes at L3-L4. IMPRESSION: 1. No acute intra-abdominal finding 2. Stable large right abdominal wall hernia as described. 3. Absent right kidney TECHNICAL DOCUMENTATION: Quality ID # [id number]: Final reports with documentation of one or more dose reduction techniques (e.g., Automated exposure control, adjustment of the mA and/or kV according to patient size, use of iterative reconstruction technique) 2010 [employer]- All Rights Reserved Chest X-Ray 02/18/18 01:45 IMPRESSION: No acute cardiopulmonary findings. Assessment & Plan - Diagnosis (1) Hypotension Qualifiers: Hypotension type: unspecified hypotension type Qualified Code(s): I95.9 - Hypotension, unspecified Is this a current diagnosis for this admission?: Yes (2) Hyperkalemia Is this a current diagnosis for this admission?: Yes (3) Sepsis Qualifiers: Sepsis type: sepsis due to unspecified organism Qualified Code(s): A41.9 - Sepsis, unspecified organism Is this a current diagnosis for this admission?: Yes (4) Obstructive sleep apnea of adult Is this a current diagnosis for this admission?: Yes (5) Chronic kidney disease (CKD) stage G4/A1, severely decreased glomerular filtration rate (GFR) between 15-29 mL/min/1.73 square meter and albuminuria creatinine ratio less than 30 mg/g Is this a current diagnosis for this admission?: Yes (6) Morbid obesity with BMI of 45.0-49.9, adult Is this a current diagnosis for this admission?: Yes (7) Diabetes Qualifiers: Diabetes mellitus type: type 2 Diabetes mellitus complication status: without complication Qualified Code(s): E11.9 - Type 2 diabetes mellitus without complications Is this a current diagnosis for this admission?: Yes (8) Probable sepsis Is this a current diagnosis for this admission?: Yes - Notes Notes: Hypotension: Improved and resolved. Most likely related to sepsis, underlying relative hypovolemia. If there is recurrence use Levophed, Alberto-Synephrine etc. for blood pressure support. Hyperkalemia: Possibly related to sepsis and hypotension leading to renal hypoperfusion. Potassium level has come down. Advanced chronic kidney disease: Patient has single functioning kidney. She had a nephrectomy on one side. Patient claims that she was told she had CKD stage III. Sleep apnea syndrome. Recommend CPAP therapy. Patient was noted to be severely acidotic and with CO2 retention. Patient has history of CPAP use and also with in-line oxygen use. May consider pulmonary evaluation. Diabetes: Recommend good control of diabetes. Incarcerated hernia: Surgeon saw the patient. Needs to be fixed at some time when patient general condition improved. Overall prognosis is guarded at this time. Overall has shown gradual improvement. Patient can be moved out to the IMCU - Time Time with patient: Greater than 35 minutes - More than 50% of the time spent coordinating care, discussing management plans with involved caregivers. Management plans discussed with involved personnels. Medical decision making was of moderate to high complexity, patient's has multiple comorbidities. Medications reviewed and adjusted accordingly: Yes
[2018-02-19] MEDS: INSULIN LISPRO 100 UNIT/ML 3 ML VIAL SUBCUT PRN ×2 (16:18→23:00)
--- NOTE | 2018-02-19 17:24 | PDOC CONSULTATION ---
Consultation Consult Date: 02/18/18 Attending physician:: СВЕТЛАНА CORRIGAN Consult reason:: Acute on chronic respiratory failure/TREY History of Present Illness Admission Date/PCP: 02/18/18 02:35 AMBAR OSHARISA Patient complains of: Difficulty breathing History of Present Illness: JESU ORR is a 57 year old female,Presented to the emergency room complaining 24 hours weakness and a nonproductive cough patient has multiple medical problems including chronic renal failure being followed by Dr. Magno keane on chronic respiratory failure wearing oxygen at home as well as obstructive sleep apnea which she chronically wears CPAP upon evaluation in the ED she was found to have a leukocytosis and lactic acidosis subsequently subsequent ABGs showed a pH of 7.1 and a serum potassium of 6.5 BiPAP therapy was initiated as well as Kayexalate patient was subsequently transferred to the intensive care unit Past Medical History Cardiac Medical History: Reports: Congestive Heart Failure, Coronary Artery Disease, Myocardial Infarction - x2, Hypertension Denies: DVT Pulmonary Medical History: Reports: Pneumonia Denies: Asthma, Bronchitis, Chronic Obstructive Pulmonary Disease (COPD) Neurological Medical History: Denies: Seizures Endocrine Medical History: Reports: Diabetes Mellitus Type 1, Diabetes Mellitus Type 2 Renal/ Medical History: Reports: End Stage Renal Disease Malignancy Medical History: Reports: Renal (Kidney) Cancer - s/p right nephrectomy September, GI Medical History: Reports: Gastroesophageal Reflux Disease, Hiatal Hernia Denies: Crohn's Disease, Ulcerative Colitis Musculoskeltal Medical History: Reports: Arthritis - gout Skin Medical History: Denies: Psoriasis Psychiatric Medical History: Reports: Depression Traumatic Medical History: Denies: Traumatic Brain Injury Hematology: Reports: Anemia Infectious Medical History: Denies: Clostridium Difficile Past Surgical History Past Surgical History: Reports: Cardiac Catheterization - stent placement, Cholecystectomy, Coronary Stent - 2013, Hip Replacement, Orthopedic Surgery - left hand, left great toe amputation, Other - right nephrectomy for ca Denies: Hysterectomy Social History Information Source: [facility] Records Smoking Status: Unknown if Ever Smoked Frequency of Alcohol Use: None Hx Recreational Drug Use: No Drugs: None Hx Prescription Drug Abuse: No - Advance Directive Resuscitation Status: Full Code Family History Parental Family History Reviewed: No Children Family History Reviewed: No Sibling(s) Family History Reviewed.: No Medication/Allergy Home Medications: Alprazolam [Xanax 0.5 mg Tablet] 0.5 mg PO Q12HP PRN 05/26/17 Cyclobenzaprine HCl [Flexeril 10 mg Tablet] 10 mg PO QPMP PRN 05/26/17 Fluoxetine HCl [Prozac] 60 mg PO QAM 05/26/17 Furosemide [Lasix 40 mg Tablet] 40 mg PO DAILY 05/26/17 Gabapentin [Neurontin] 600 mg PO Q8 05/26/17 Isosorbide Mononitrate [Isosorbide Mononitrate ER] 30 mg PO DAILY 05/26/17 Lisinopril [Prinivil 10 mg Tablet] 20 mg PO DAILY 05/26/17 Metoprolol Succinate [Toprol XL 100 mg Tablet] 100 mg PO DAILY 05/26/17 Ranitidine HCl [Zantac 150 mg Tablet] 150 mg PO QHS 05/26/17 Ranolazine [Ranexa 500 mg Tab.sr] 500 mg PO Q12 05/26/17 Insulin Degludec [Tresiba Flextouch U-100] 80 unit SQ QHS #8 insuln.pen Empagliflozin/Metformin HCl [Synjardy Xr 25-1,000 mg Tablet] 1 each PO [id number] 10/31/17 Liraglutide [Victoza 2-Thong] 1.8 mg SQ DAILY 10/31/17 Nitroglycerin 0.3 mg SL ASDIR PRN 10/31/17 Aspirin [Ecotrin 325 mg EC Tablet] 325 mg PO DAILY 02/18/18 Bupropion HCl [Bupropion Xl] 150 mg PO DAILY 02/18/18 Dexlansoprazole [Dexilant 60 mg Capsule] 60 mg PO DAILY 02/18/18 Ergocalciferol (Vitamin D2) [Drisdol 50,000 Unit (1.25MG) Capsule] 50,000 unit PO MO@1000 02/18/18 Ferrous Sulfate [Feosol 325 mg Tablet] 325 mg PO BID 02/18/18 Icosapent Ethyl [Vascepa] 2 gm PO BIDBS 02/18/18 Insulin Lispro [Humalog Insulin 100 Unit/1 ml 3 ml Vial] 0 unit SUBCUT .SLD SCALE MDD ACHS 02/18/18 Insulin Lispro [Humalog Insulin 100 Unit/1 ml 3 ml Vial] 5 unit SUBCUT MEALS 05/28 Lidocaine [Lidoderm 5% (700 mg) Transdermal Patch] 1 patch TP DAILY 02/18/18 Oxycodone HCl/Acetaminophen [Percocet 5-325 mg Tablet] 1 tab PO Q8HP PRN Allergies/Adverse Reactions: sulfamethoxazole [From Bactrim] Allergy (Severe, Verified 02/01/18 14:50) rash trimethoprim [From Bactrim] Allergy (Severe, Verified 02/01/18 14:50) rash Penicillins Allergy (Unknown, Verified 02/01/18 14:50) Review of Systems ROS unobtainable: Due to mental status Physical Exam Vital Signs: Temp Pulse Resp BP Pulse Ox 99.0 F 90 20 146/71 H 94 02/19/18 16:00 02/19/18 14:00 02/19/18 14:00 02/19/18 13:17 02/19/18 14:00 Intake & Output 02/18/18 02/19/18 02/20/18 06:59 06:59 06:59 Intake Total 1100 1398 750 Output Total 5725 1500 Balance 1100 -4327 -750 Weight 138.5 kg General appearance: PRESENT: no acute distress, disheveled, morbidly obese. ABSENT: cooperative Head exam: PRESENT: atraumatic, normocephalic Eye exam: PRESENT: conjunctiva pale. ABSENT: nystagmus, periorbital swelling, scleral icterus Mouth exam: PRESENT: dry mucosa, neck supple, tongue midline Neck exam: ABSENT: carotid bruit, JVD, lymphadenopathy, thyromegaly, tracheal deviation, tracheostomy Respiratory exam: PRESENT: decreased breath sounds, prolonged expiratory phas, rales, rhonchi, unlabored. ABSENT: retraction, stridor Cardiovascular exam: PRESENT: RRR, +S1, +S2 Pulses: PRESENT: normal radial pulses GI/Abdominal exam: PRESENT: hypoactive bowel sounds, soft. ABSENT: tenderness Gentrourinary exam: PRESENT: indwelling catheter Extremities exam: PRESENT: pedal edema. ABSENT: clubbing, joint swelling Musculoskeletal exam: ABSENT: ambulatory, deformity, dislocation Neurological exam: PRESENT: awake. ABSENT: oriented to person, oriented to place Psychiatric exam: PRESENT: flat affect Focused psych exam: PRESENT: internal stimuli Skin exam: PRESENT: dry, warm Results Laboratory Results: 02/19/18 05:42 02/19/18 14:10 0802/19/18 02/19/18 05:42 05:42 05:42 WBC 8.3 RBC 3.33 L Hgb 9.5 L Hct 28.5 L MCV 86 MCH 28.4 MCHC 33.2 RDW 14.9 H Plt Count 281 Seg Neutrophils % 62.8 Lymphocytes % 23.1 Monocytes % 5.3 Eosinophils % 8.0 H Basophils % 0.8 Absolute Neutrophils 5.2 Absolute Lymphocytes 1.9 Absolute Monocytes 0.4 Absolute Eosinophils 0.7 H Absolute Basophils 0.1 Carbonic Acid Cancelled HCO3/H2CO3 Ratio Cancelled ABG pH Cancelled ABG pCO2 Cancelled ABG pO2 Cancelled ABG HCO3 Cancelled ABG O2 Saturation Cancelled ABG Base Excess Cancelled FiO2 Cancelled Sodium 144.8 Potassium 5.4 H Chloride 109 H Carbon Dioxide 24 Anion Gap 12 BUN 40 H Creatinine 2.01 H Est GFR ( Amer) 31 L Est GFR (Non-Af Amer) 26 L Glucose 121 H Lactic Acid Calcium 8.5 02/19/18 02/19/18 02/19/18 05:42 07:43 14:10 WBC RBC Hgb Hct MCV MCH MCHC RDW Plt Count Seg Neutrophils % Lymphocytes % Monocytes % Eosinophils % Basophils % Absolute Neutrophils Absolute Lymphocytes Absolute Monocytes Absolute Eosinophils Absolute Basophils Carbonic Acid 1.18 HCO3/H2CO3 Ratio 22:1 ABG pH 7.44 ABG pCO2 39.1 ABG pO2 142.2 H ABG HCO3 26.0 ABG O2 Saturation 98.9 H ABG Base Excess 1.8 FiO2 30% Sodium Potassium 4.8 Chloride Carbon Dioxide Anion Gap BUN Creatinine Est GFR ( Amer) Est GFR (Non-Af Amer) Glucose Lactic Acid 1.1 Calcium 02/18/18 02/18/18 02/18/18 03:07 03:07 08:32 Creatine Kinase 127 117 CK-MB (CK-2) 3.53 Troponin I < 0.012 02/18/18 02/18/18 02/18/18 08:32 15:40 15:40 Creatine Kinase 96 CK-MB (CK-2) 3.60 2.64 Troponin I < 0.012 < 0.012 Impressions: Abdomen/Pelvis CT 02/17/18 22:30 IMPRESSION: No acute intrathoracic finding. TECHNICAL DOCUMENTATION: Quality ID # [id number]: Final reports with documentation of one or more dose reduction techniques (e.g., Automated exposure control, adjustment of the mA and/or kV according to patient size, use of iterative reconstruction technique) 2010 [employer]- All Rights Reserved EXAM DESCRIPTION: CT ABDOMEN AND PELVIS WITHOUT IV CONTRAST COMPLETED DATE/TME: 02/17/2018 22:30 CLINICAL HISTORY: 57 years, Female, sepsis COMPARISON: None. TECHNIQUE: Contiguous axial images of the abdomen and pelvis were obtained without IV contrast followed by reconstruction images. This exam was performed according to our departmental dose-optimization program, which includes automated exposure control, adjustment of the mA and/or kV according to patient size and/or use of iterative reconstruction technique. Images stored on PACS. All CT scanners at this facility use dose modulation, iterative reconstruction, and/or weight based dosing when appropriate to reduce radiation dose to as low as reasonably achievable (ALARA). [facility]: Dose Right [facility]: CareDose [facility]: Dose Right [facility]: Teradose 4D [facility]: [email or web address] LIMITATIONS: None. FINDINGS: Liver: Within normal limits Gallbladder/Bile ducts: Cholecystectomy clips are seen in gallbladder fossa. No intra or extrahepatic duct dilatation. Spleen: Within normal limits Pancreas: Within normal limits Adrenal glands: Within normal limits Kidneys/Bladder: Again noted, absent right kidney. No left renal stones or hydronephrosis. Contracted bladder without significant findings. GI tract: Stable appearance of a large right abdominal wall hernia with herniated cecum, portions of the ascending colon and multiple small bowel loops. Abdominal wall defect measures 9.2 cm AP x 8.6 cm CC. The most lateral aspect of the hernia sac is outside field of view. The visualized portions of the hernia sac show no evidence of free fluid or bowel dilatation. No evidence of obstruction or active inflammatory process. No intra-abdominal collection. Uterus/adnexa: Anteverted uterus. No suspicious adnexal lesion. Vascular structures: Scattered vascular calcifications Free fluid: No free fluid. Lymph nodes: No radiographically enlarged lymph nodes Soft tissues: Large right abdominal wall hernia as described above. Incidentally noted left obturator externus intramuscular lipoma measuring 3 cm. Bones: No acute osseous finding. Mild degenerative changes at L3-L4. IMPRESSION: 1. No acute intra-abdominal finding 2. Stable large right abdominal wall hernia as described. 3. Absent right kidney TECHNICAL DOCUMENTATION: Quality ID # [id number]: Final reports with documentation of one or more dose reduction techniques (e.g., Automated exposure control, adjustment of the mA and/or kV according to patient size, use of iterative reconstruction technique) 2010 [employer]- All Rights Reserved Chest CT 02/17/18 22:30 IMPRESSION: No acute intrathoracic finding. TECHNICAL DOCUMENTATION: Quality ID # [id number]: Final reports with documentation of one or more dose reduction techniques (e.g., Automated exposure control, adjustment of the mA and/or kV according to patient size, use of iterative reconstruction technique) 2010 [employer]- All Rights Reserved EXAM DESCRIPTION: CT ABDOMEN AND PELVIS WITHOUT IV CONTRAST COMPLETED DATE/TME: 02/17/2018 22:30 CLINICAL HISTORY: 57 years, Female, sepsis COMPARISON: None. TECHNIQUE: Contiguous axial images of the abdomen and pelvis were obtained without IV contrast followed by reconstruction images. This exam was performed according to our departmental dose-optimization program, which includes automated exposure control, adjustment of the mA and/or kV according to patient size and/or use of iterative reconstruction technique. Images stored on PACS. All CT scanners at this facility use dose modulation, iterative reconstruction, and/or weight based dosing when appropriate to reduce radiation dose to as low as reasonably achievable (ALARA). [facility]: Dose Right [facility]: CareDose [facility]: Dose Right [facility]: Teradose 4D [facility]: [email or web address] LIMITATIONS: None. FINDINGS: Liver: Within normal limits Gallbladder/Bile ducts: Cholecystectomy clips are seen in gallbladder fossa. No intra or extrahepatic duct dilatation. Spleen: Within normal limits Pancreas: Within normal limits Adrenal glands: Within normal limits Kidneys/Bladder: Again noted, absent right kidney. No left renal stones or hydronephrosis. Contracted bladder without significant findings. GI tract: Stable appearance of a large right abdominal wall hernia with herniated cecum, portions of the ascending colon and multiple small bowel loops. Abdominal wall defect measures 9.2 cm AP x 8.6 cm CC. The most lateral aspect of the hernia sac is outside field of view. The visualized portions of the hernia sac show no evidence of free fluid or bowel dilatation. No evidence of obstruction or active inflammatory process. No intra-abdominal collection. Uterus/adnexa: Anteverted uterus. No suspicious adnexal lesion. Vascular structures: Scattered vascular calcifications Free fluid: No free fluid. Lymph nodes: No radiographically enlarged lymph nodes Soft tissues: Large right abdominal wall hernia as described above. Incidentally noted left obturator externus intramuscular lipoma measuring 3 cm. Bones: No acute osseous finding. Mild degenerative changes at L3-L4. IMPRESSION: 1. No acute intra-abdominal finding 2. Stable large right abdominal wall hernia as described. 3. Absent right kidney TECHNICAL DOCUMENTATION: Quality ID # [id number]: Final reports with documentation of one or more dose reduction techniques (e.g., Automated exposure control, adjustment of the mA and/or kV according to patient size, use of iterative reconstruction technique) 2010 [employer]- All Rights Reserved Chest X-Ray 02/18/18 01:45 IMPRESSION: No acute cardiopulmonary findings. Assessment & Plan - Diagnosis (1) Chronic kidney disease (CKD) stage G4/A1, severely decreased glomerular filtration rate (GFR) between 15-29 mL/min/1.73 square meter and albuminuria creatinine ratio less than 30 mg/g Is this a current diagnosis for this admission?: Yes Plan: Kayexalate plus +/-Lasix non-improvement patient may need temporary dialysis (2) Hyperkalemia Is this a current diagnosis for this admission?: Yes Plan: Slightly decreased since presentation (3) Obstructive sleep apnea of adult Is this a current diagnosis for this admission?: Yes Plan: increased current BiPAP from 15-18 in an attempt to decrease respiratory rate and improved tidal volume (4) Respiratory failure Qualifiers: Chronicity: acute on chronic Is this a current diagnosis for this admission?: Yes Plan: Patient currently stable on BiPAP as necessary intubated this patient is a full code (5) Sepsis Qualifiers: Sepsis type: sepsis due to unspecified organism Qualified Code(s): A41.9 - Sepsis, unspecified organism Is this a current diagnosis for this admission?: Yes Plan: Labs- All tests 24 hr 02/18/18 02/18/18 02/18/18 01:52 08:32 10:40 WBC 12.0 H ABG pH 7.18 L* 7.24 L 02/18/18 15:40 WBC ABG pH 7.29 L (6) Morbid obesity with BMI of 45.0-49.9, adult Is this a current diagnosis for this admission?: Yes - Time Total Critical Time (Minutes): 55
--- NOTE | 2018-02-19 17:29 | PDOC PROGRESS REPORT ---
Subjective Progress Note for:: 02/19/18 Subjective:: Slightly improved Reason For Visit: SEPSIS/CHRONIC CHF/CHRONIC KIDNEY DISEASE Physical Exam Vital Signs: Temp Pulse Resp BP Pulse Ox 98.8 F 88 31 H 136/86 H 91 L 02/19/18 12:00 02/19/18 03:01 02/19/18 12:00 02/19/18 11:17 02/19/18 12:00 Intake & Output 02/18/18 02/19/18 02/20/18 06:59 06:59 06:59 Intake Total 1100 1398 550 Output Total 5725 1500 Balance 1100 -1764 -950 Weight 138.5 kg General appearance: PRESENT: no acute distress, disheveled, morbidly obese. ABSENT: cooperative Head exam: PRESENT: atraumatic, normocephalic Eye exam: PRESENT: conjunctiva pale. ABSENT: nystagmus, periorbital swelling, scleral icterus Mouth exam: PRESENT: dry mucosa, neck supple, tongue midline Neck exam: ABSENT: carotid bruit, JVD, lymphadenopathy, thyromegaly, tracheal deviation, tracheostomy Respiratory exam: PRESENT: decreased breath sounds, prolonged expiratory phas, rales, rhonchi, unlabored. ABSENT: retraction, stridor Cardiovascular exam: PRESENT: RRR, +S1, +S2 Pulses: PRESENT: normal radial pulses GI/Abdominal exam: PRESENT: hypoactive bowel sounds, soft Extremities exam: PRESENT: pedal edema. ABSENT: calf tenderness, clubbing, joint swelling Musculoskeletal exam: ABSENT: ambulatory, deformity, dislocation Neurological exam: PRESENT: awake. ABSENT: oriented to person Skin exam: PRESENT: dry, warm Results Laboratory Results: 02/19/18 05:42 02/19/18 05:42 02/18/18 02/18/18 02/18/18 12:26 15:40 15:40 WBC RBC Hgb Hct MCV MCH MCHC RDW Plt Count Seg Neutrophils % Lymphocytes % Monocytes % Eosinophils % Basophils % Absolute Neutrophils Absolute Lymphocytes Absolute Monocytes Absolute Eosinophils Absolute Basophils Carbonic Acid 1.59 H HCO3/H2CO3 Ratio 15:1 ABG pH 7.29 L ABG pCO2 52.9 H ABG pO2 121.8 H ABG HCO3 24.6 ABG O2 Saturation 97.9 ABG Base Excess -2.3 FiO2 ROOM AIR Sodium 140.5 139.9 Potassium 5.7 H 6.0 H* Chloride 106 108 H Carbon Dioxide 24 25 Anion Gap 11 7 BUN 49 H 50 H Creatinine 3.13 H 2.77 H Est GFR ( Amer) 19 L 21 L Est GFR (Non-Af Amer) 15 L 18 L Glucose 74 L 84 Lactic Acid Calcium 8.3 L 8.3 L Magnesium 2.2 Total Bilirubin 0.3 AST 44 H ALT 37 Alkaline Phosphatase 83 Total Protein 6.7 Albumin 3.3 L 02/19/18 02/19/18 02/19/18 05:42 05:42 05:42 WBC 8.3 RBC 3.33 L Hgb 9.5 L Hct 28.5 L MCV 86 MCH 28.4 MCHC 33.2 RDW 14.9 H Plt Count 281 Seg Neutrophils % 62.8 Lymphocytes % 23.1 Monocytes % 5.3 Eosinophils % 8.0 H Basophils % 0.8 Absolute Neutrophils 5.2 Absolute Lymphocytes 1.9 Absolute Monocytes 0.4 Absolute Eosinophils 0.7 H Absolute Basophils 0.1 Carbonic Acid Cancelled HCO3/H2CO3 Ratio Cancelled ABG pH Cancelled ABG pCO2 Cancelled ABG pO2 Cancelled ABG HCO3 Cancelled ABG O2 Saturation Cancelled ABG Base Excess Cancelled FiO2 Cancelled Sodium 144.8 Potassium 5.4 H Chloride 109 H Carbon Dioxide 24 Anion Gap 12 BUN 40 H Creatinine 2.01 H Est GFR ( Amer) 31 L Est GFR (Non-Af Amer) 26 L Glucose 121 H Lactic Acid Calcium 8.5 Magnesium Total Bilirubin AST ALT Alkaline Phosphatase Total Protein Albumin 02/19/18 02/19/18 05:42 07:43 WBC RBC Hgb Hct MCV MCH MCHC RDW Plt Count Seg Neutrophils % Lymphocytes % Monocytes % Eosinophils % Basophils % Absolute Neutrophils Absolute Lymphocytes Absolute Monocytes Absolute Eosinophils Absolute Basophils Carbonic Acid 1.18 HCO3/H2CO3 Ratio 22:1 ABG pH 7.44 ABG pCO2 39.1 ABG pO2 142.2 H ABG HCO3 26.0 ABG O2 Saturation 98.9 H ABG Base Excess 1.8 FiO2 30% Sodium Potassium Chloride Carbon Dioxide Anion Gap BUN Creatinine Est GFR ( Amer) Est GFR (Non-Af Amer) Glucose Lactic Acid 1.1 Calcium Magnesium Total Bilirubin AST ALT Alkaline Phosphatase Total Protein Albumin 02/18/18 02/18/18 02/18/18 03:07 03:07 08:32 Creatine Kinase 127 117 CK-MB (CK-2) 3.53 Troponin I < 0.012 02/18/18 02/18/18 02/18/18 08:32 15:40 15:40 Creatine Kinase 96 CK-MB (CK-2) 3.60 2.64 Troponin I < 0.012 < 0.012 Impressions: Abdomen/Pelvis CT 02/17/18 22:30 IMPRESSION: No acute intrathoracic finding. TECHNICAL DOCUMENTATION: Quality ID # 436: Final reports with documentation of one or more dose reduction techniques (e.g., Automated exposure control, adjustment of the mA and/or kV according to patient size, use of iterative reconstruction technique) 2010 [employer]- All Rights Reserved EXAM DESCRIPTION: CT ABDOMEN AND PELVIS WITHOUT IV CONTRAST COMPLETED DATE/TME: 02/17/2018 22:30 CLINICAL HISTORY: 57 years, Female, sepsis COMPARISON: None. TECHNIQUE: Contiguous axial images of the abdomen and pelvis were obtained without IV contrast followed by reconstruction images. This exam was performed according to our departmental dose-optimization program, which includes automated exposure control, adjustment of the mA and/or kV according to patient size and/or use of iterative reconstruction technique. Images stored on PACS. All CT scanners at this facility use dose modulation, iterative reconstruction, and/or weight based dosing when appropriate to reduce radiation dose to as low as reasonably achievable (ALARA). [facility]: Dose Right [facility]: CareDose [facility]: Dose Right [facility]: Teradose 4D [facility]: Scroll.in LIMITATIONS: None. FINDINGS: Liver: Within normal limits Gallbladder/Bile ducts: Cholecystectomy clips are seen in gallbladder fossa. No intra or extrahepatic duct dilatation. Spleen: Within normal limits Pancreas: Within normal limits Adrenal glands: Within normal limits Kidneys/Bladder: Again noted, absent right kidney. No left renal stones or hydronephrosis. Contracted bladder without significant findings. GI tract: Stable appearance of a large right abdominal wall hernia with herniated cecum, portions of the ascending colon and multiple small bowel loops. Abdominal wall defect measures 9.2 cm AP x 8.6 cm CC. The most lateral aspect of the hernia sac is outside field of view. The visualized portions of the hernia sac show no evidence of free fluid or bowel dilatation. No evidence of obstruction or active inflammatory process. No intra-abdominal collection. Uterus/adnexa: Anteverted uterus. No suspicious adnexal lesion. Vascular structures: Scattered vascular calcifications Free fluid: No free fluid. Lymph nodes: No radiographically enlarged lymph nodes Soft tissues: Large right abdominal wall hernia as described above. Incidentally noted left obturator externus intramuscular lipoma measuring 3 cm. Bones: No acute osseous finding. Mild degenerative changes at L3-L4. IMPRESSION: 1. No acute intra-abdominal finding 2. Stable large right abdominal wall hernia as described. 3. Absent right kidney TECHNICAL DOCUMENTATION: Quality ID # [id number]: Final reports with documentation of one or more dose reduction techniques (e.g., Automated exposure control, adjustment of the mA and/or kV according to patient size, use of iterative reconstruction technique) 2010 [employer]- All Rights Reserved Chest CT 02/17/18 22:30 IMPRESSION: No acute intrathoracic finding. TECHNICAL DOCUMENTATION: Quality ID # [id number]: Final reports with documentation of one or more dose reduction techniques (e.g., Automated exposure control, adjustment of the mA and/or kV according to patient size, use of iterative reconstruction technique) 2010 [employer]- All Rights Reserved EXAM DESCRIPTION: CT ABDOMEN AND PELVIS WITHOUT IV CONTRAST COMPLETED DATE/TME: 02/17/2018 22:30 CLINICAL HISTORY: 57 years, Female, sepsis COMPARISON: None. TECHNIQUE: Contiguous axial images of the abdomen and pelvis were obtained without IV contrast followed by reconstruction images. This exam was performed according to our departmental dose-optimization program, which includes automated exposure control, adjustment of the mA and/or kV according to patient size and/or use of iterative reconstruction technique. Images stored on PACS. All CT scanners at this facility use dose modulation, iterative reconstruction, and/or weight based dosing when appropriate to reduce radiation dose to as low as reasonably achievable (ALARA). [facility]: Dose Right [facility]: CareDose [facility]: Dose Right [facility]: Teradose 4D [facility]: Scroll.in LIMITATIONS: None. FINDINGS: Liver: Within normal limits Gallbladder/Bile ducts: Cholecystectomy clips are seen in gallbladder fossa. No intra or extrahepatic duct dilatation. Spleen: Within normal limits Pancreas: Within normal limits Adrenal glands: Within normal limits Kidneys/Bladder: Again noted, absent right kidney. No left renal stones or hydronephrosis. Contracted bladder without significant findings. GI tract: Stable appearance of a large right abdominal wall hernia with herniated cecum, portions of the ascending colon and multiple small bowel loops. Abdominal wall defect measures 9.2 cm AP x 8.6 cm CC. The most lateral aspect of the hernia sac is outside field of view. The visualized portions of the hernia sac show no evidence of free fluid or bowel dilatation. No evidence of obstruction or active inflammatory process. No intra-abdominal collection. Uterus/adnexa: Anteverted uterus. No suspicious adnexal lesion. Vascular structures: Scattered vascular calcifications Free fluid: No free fluid. Lymph nodes: No radiographically enlarged lymph nodes Soft tissues: Large right abdominal wall hernia as described above. Incidentally noted left obturator externus intramuscular lipoma measuring 3 cm. Bones: No acute osseous finding. Mild degenerative changes at L3-L4. IMPRESSION: 1. No acute intra-abdominal finding 2. Stable large right abdominal wall hernia as described. 3. Absent right kidney TECHNICAL DOCUMENTATION: Quality ID # [id number]: Final reports with documentation of one or more dose reduction techniques (e.g., Automated exposure control, adjustment of the mA and/or kV according to patient size, use of iterative reconstruction technique) 2010 [employer]- All Rights Reserved Chest X-Ray 02/18/18 01:45 IMPRESSION: No acute cardiopulmonary findings. Assessment & Plan - Diagnosis (1) Chronic kidney disease (CKD) stage G4/A1, severely decreased glomerular filtration rate (GFR) between 15-29 mL/min/1.73 square meter and albuminuria creatinine ratio less than 30 mg/g Is this a current diagnosis for this admission?: Yes Plan: Kayexalate plus +/-Lasix non-improvement patient may need temporary dialysis (2) Hyperkalemia Is this a current diagnosis for this admission?: Yes Plan: Slightly decreased since presentation (3) Obstructive sleep apnea of adult Is this a current diagnosis for this admission?: Yes Plan: increased current BiPAP from 15-18 in an attempt to decrease respiratory rate and improved tidal volume (4) Respiratory failure Qualifiers: Chronicity: acute on chronic Is this a current diagnosis for this admission?: Yes Plan: Patient currently stable on BiPAP as necessary intubated this patient is a full code (5) Sepsis Qualifiers: Sepsis type: sepsis due to unspecified organism Qualified Code(s): A41.9 - Sepsis, unspecified organism Is this a current diagnosis for this admission?: Yes (6) Morbid obesity with BMI of 45.0-49.9, adult Is this a current diagnosis for this admission?: Yes - Time Total Critical Time (Minutes): 45
[2018-02-19] MEDS ORDERED: LISINOPRIL 10 MG TABLET PO ONE (17:30)
[2018-02-19] MEDS: FAMOTIDINE 20 MG TABLET PO SCH (22:22)
[2018-02-20] MEDS: IMIPENEM/CILASTATIN SODIUM 500 MG in NORMAL SALINE 100 ML IV SCH ×4 (02:58→22:03)
[2018-02-20] MEDS: ACETAMINOPHEN 325 MG TABLET PO PRN ×3 (06:18→22:02)
[2018-02-20] MEDS: LANSOPRAZOLE 30 MG TAB.RAP.DR PO SCH (06:18)
[2018-02-20] MEDS: GABAPENTIN 300 MG CAPSULE PO SCH ×3 (06:18→22:02)
[2018-02-20 06:48] LABS: ABSOLUTE BASOPHILS # (AUTO) 0.1 10^3/uL (0.0-0.2); ABSOLUTE EOSINOPHILS # (AUTO) 0.4 10^3/uL (0.0-0.6); ABSOLUTE LYMPHOCYTES (AUTO) 2.3 10^3/uL (0.5-4.7); ABSOLUTE MONOCYTES (AUTO) 0.6 10^3/uL (0.1-1.4); ABSOLUTE NEUT (AUTO) 9.9 10^3/uL (1.7-8.2); BASOPHILS % (AUTO) 0.9 % (0-2); EOSINOPHILS % (AUTO) 2.8 % (0-6); HEMATOCRIT 29.7 % (36.0-47.0); HEMOGLOBIN 9.6 g/dL (12.0-15.5); LYMPHOCYTES % (AUTO) 17.1 % (13-45); MEAN CORPUSCULAR HEMOGLOBIN 27.6 pg (27.0-33.4); MEAN CORPUSCULAR HGB CONC 32.3 g/dL (32.0-36.0); MEAN CORPUSCULAR VOLUME 85 fl (80-97); MONOCYTES % (AUTO) 4.6 % (3-13); PLATELET COUNT 320 10^3/uL (150-450); RED BLOOD COUNT 3.49 10^6/uL (3.72-5.28); SEGMENTED NEUTROPHILS % (AUTO) 74.6 % (42-78); TOTAL CELLS COUNTED % (AUTO) 100 %; WHITE BLOOD COUNT 13.3 10^3/uL (4.0-10.5)
[2018-02-20] MEDS: INSULIN LISPRO 100 UNIT/ML 3 ML VIAL SUBCUT PRN ×3 (06:52→22:08)
[2018-02-20 06:59] LABS: ANION GAP 14 (5-19); BLOOD UREA NITROGEN 31 mg/dL (7-20); CALCIUM 8.9 mg/dL (8.4-10.2); CARBON DIOXIDE 25 mmol/L (22-30); CHLORIDE 104 mmol/L (98-107); GLUCOSE 178 mg/dL (75-110); POTASSIUM 4.2 mmol/L (3.6-5.0); SODIUM 143.1 mmol/L (137-145)
--- NOTE | 2018-02-20 08:15 | PDOC PROGRESS REPORT ---
Subjective Progress Note for:: 02/20/18 Subjective:: Patient reported difficulty with walking, nausea and vomiting as well as abdominal pain before activating EMS service brought to ED found hypotensive, septic, acute respiratory failure and acute on chronic CKD with hyperkalemia. Patient has shown improvement in her multi-organ decompensation since admission. She denied any chest pain or difficulty with breathing. No fever or chills. No nausea, vomiting or abdominal pain. Remain on IV antibiotic therapy. There has been improvement in her renal indices and resolution f her hyperkalemia. She admitted to consumption of high potassium source food at home during my bedside evaluation this morning. Reason For Visit: SEPSIS/CHRONIC CHF/CHRONIC KIDNEY DISEASE Physical Exam Vital Signs: Temp Pulse Resp BP Pulse Ox 98.8 F 84 14 157/73 H 100 02/20/18 06:00 02/19/18 19:00 02/20/18 06:00 02/20/18 05:19 02/20/18 06:00 Intake & Output 02/19/18 02/20/18 02/21/18 06:59 06:59 06:59 Intake Total 1398 2100 Output Total 5725 3400 Balance -4327 -1300 Weight 138.5 kg 134.5 kg General appearance: PRESENT: no acute distress, morbidly obese Head exam: PRESENT: atraumatic, normocephalic Eye exam: PRESENT: conjunctiva pink, EOMI, PERRLA. ABSENT: scleral icterus Ear exam: PRESENT: normal external ear exam Mouth exam: PRESENT: moist Respiratory exam: PRESENT: clear to auscultation tarsha Cardiovascular exam: PRESENT: RRR. ABSENT: diastolic murmur, rubs, systolic murmur Vascular exam: PRESENT: normal capillary refill. ABSENT: pallor GI/Abdominal exam: PRESENT: normal bowel sounds, soft. ABSENT: distended, guarding, mass, organolmegaly, rebound, tenderness Extremities exam: ABSENT: pedal edema Neurological exam: PRESENT: alert, awake, oriented to person, oriented to place , oriented to time, oriented to situation, CN II-XII grossly intact. ABSENT: motor sensory deficit Psychiatric exam: PRESENT: appropriate affect, normal mood. ABSENT: homicidal ideation, suicidal ideation Skin exam: PRESENT: dry, warm Results Laboratory Results: 02/20/18 06:28 02/20/18 06:28 08/06/2702/19/18 02/20/18 07:43 14:10 06:28 WBC RBC Hgb Hct MCV MCH MCHC RDW Plt Count Seg Neutrophils % Lymphocytes % Monocytes % Eosinophils % Basophils % Absolute Neutrophils Absolute Lymphocytes Absolute Monocytes Absolute Eosinophils Absolute Basophils Carbonic Acid 1.18 HCO3/H2CO3 Ratio 22:1 ABG pH 7.44 ABG pCO2 39.1 ABG pO2 142.2 H ABG HCO3 26.0 ABG O2 Saturation 98.9 H ABG Base Excess 1.8 FiO2 30% Sodium 143.1 Potassium 4.8 4.2 Chloride 104 Carbon Dioxide 25 Anion Gap 14 BUN 31 H Creatinine 1.66 H Est GFR ( Amer) 39 L Est GFR (Non-Af Amer) 32 L Glucose 178 H Calcium 8.9 02/20/18 06:28 WBC 13.3 H RBC 3.49 L Hgb 9.6 L Hct 29.7 L MCV 85 MCH 27.6 MCHC 32.3 RDW 15.0 H Plt Count 320 Seg Neutrophils % 74.6 Lymphocytes % 17.1 Monocytes % 4.6 Eosinophils % 2.8 Basophils % 0.9 Absolute Neutrophils 9.9 H Absolute Lymphocytes 2.3 Absolute Monocytes 0.6 Absolute Eosinophils 0.4 Absolute Basophils 0.1 Carbonic Acid HCO3/H2CO3 Ratio ABG pH ABG pCO2 ABG pO2 ABG HCO3 ABG O2 Saturation ABG Base Excess FiO2 Sodium Potassium Chloride Carbon Dioxide Anion Gap BUN Creatinine Est GFR ( Amer) Est GFR (Non-Af Amer) Glucose Calcium 02/18/18 02/18/18 02/18/18 03:07 03:07 08:32 Creatine Kinase 127 117 CK-MB (CK-2) 3.53 Troponin I < 0.012 02/18/18 02/18/18 02/18/18 08:32 15:40 15:40 Creatine Kinase 96 CK-MB (CK-2) 3.60 2.64 Troponin I < 0.012 < 0.012 Impressions: Abdomen/Pelvis CT 02/17/18 22:30 IMPRESSION: No acute intrathoracic finding. TECHNICAL DOCUMENTATION: Quality ID # [id number]: Final reports with documentation of one or more dose reduction techniques (e.g., Automated exposure control, adjustment of the mA and/or kV according to patient size, use of iterative reconstruction technique) 2010 [employer]- All Rights Reserved EXAM DESCRIPTION: CT ABDOMEN AND PELVIS WITHOUT IV CONTRAST COMPLETED DATE/TME: 02/17/2018 22:30 CLINICAL HISTORY: 57 years, Female, sepsis COMPARISON: None. TECHNIQUE: Contiguous axial images of the abdomen and pelvis were obtained without IV contrast followed by reconstruction images. This exam was performed according to our departmental dose-optimization program, which includes automated exposure control, adjustment of the mA and/or kV according to patient size and/or use of iterative reconstruction technique. Images stored on PACS. All CT scanners at this facility use dose modulation, iterative reconstruction, and/or weight based dosing when appropriate to reduce radiation dose to as low as reasonably achievable (ALARA). [facility]: Dose Right [facility]: CareDose [facility]: Dose Right [facility]: Teradose 4D [facility]: SpaceFace LIMITATIONS: None. FINDINGS: Liver: Within normal limits Gallbladder/Bile ducts: Cholecystectomy clips are seen in gallbladder fossa. No intra or extrahepatic duct dilatation. Spleen: Within normal limits Pancreas: Within normal limits Adrenal glands: Within normal limits Kidneys/Bladder: Again noted, absent right kidney. No left renal stones or hydronephrosis. Contracted bladder without significant findings. GI tract: Stable appearance of a large right abdominal wall hernia with herniated cecum, portions of the ascending colon and multiple small bowel loops. Abdominal wall defect measures 9.2 cm AP x 8.6 cm CC. The most lateral aspect of the hernia sac is outside field of view. The visualized portions of the hernia sac show no evidence of free fluid or bowel dilatation. No evidence of obstruction or active inflammatory process. No intra-abdominal collection. Uterus/adnexa: Anteverted uterus. No suspicious adnexal lesion. Vascular structures: Scattered vascular calcifications Free fluid: No free fluid. Lymph nodes: No radiographically enlarged lymph nodes Soft tissues: Large right abdominal wall hernia as described above. Incidentally noted left obturator externus intramuscular lipoma measuring 3 cm. Bones: No acute osseous finding. Mild degenerative changes at L3-L4. IMPRESSION: 1. No acute intra-abdominal finding 2. Stable large right abdominal wall hernia as described. 3. Absent right kidney TECHNICAL DOCUMENTATION: Quality ID # [id number]: Final reports with documentation of one or more dose reduction techniques (e.g., Automated exposure control, adjustment of the mA and/or kV according to patient size, use of iterative reconstruction technique) 2010 [employer]- All Rights Reserved Chest CT 02/17/18 22:30 IMPRESSION: No acute intrathoracic finding. TECHNICAL DOCUMENTATION: Quality ID # [id number]: Final reports with documentation of one or more dose reduction techniques (e.g., Automated exposure control, adjustment of the mA and/or kV according to patient size, use of iterative reconstruction technique) 2010 [employer]- All Rights Reserved EXAM DESCRIPTION: CT ABDOMEN AND PELVIS WITHOUT IV CONTRAST COMPLETED DATE/TME: 02/17/2018 22:30 CLINICAL HISTORY: 57 years, Female, sepsis COMPARISON: None. TECHNIQUE: Contiguous axial images of the abdomen and pelvis were obtained without IV contrast followed by reconstruction images. This exam was performed according to our departmental dose-optimization program, which includes automated exposure control, adjustment of the mA and/or kV according to patient size and/or use of iterative reconstruction technique. Images stored on PACS. All CT scanners at this facility use dose modulation, iterative reconstruction, and/or weight based dosing when appropriate to reduce radiation dose to as low as reasonably achievable (ALARA). [facility]: Dose Right [facility]: CareDose [facility]: Dose Right [facility]: Teradose 4D [facility]: SpaceFace LIMITATIONS: None. FINDINGS: Liver: Within normal limits Gallbladder/Bile ducts: Cholecystectomy clips are seen in gallbladder fossa. No intra or extrahepatic duct dilatation. Spleen: Within normal limits Pancreas: Within normal limits Adrenal glands: Within normal limits Kidneys/Bladder: Again noted, absent right kidney. No left renal stones or hydronephrosis. Contracted bladder without significant findings. GI tract: Stable appearance of a large right abdominal wall hernia with herniated cecum, portions of the ascending colon and multiple small bowel loops. Abdominal wall defect measures 9.2 cm AP x 8.6 cm CC. The most lateral aspect of the hernia sac is outside field of view. The visualized portions of the hernia sac show no evidence of free fluid or bowel dilatation. No evidence of obstruction or active inflammatory process. No intra-abdominal collection. Uterus/adnexa: Anteverted uterus. No suspicious adnexal lesion. Vascular structures: Scattered vascular calcifications Free fluid: No free fluid. Lymph nodes: No radiographically enlarged lymph nodes Soft tissues: Large right abdominal wall hernia as described above. Incidentally noted left obturator externus intramuscular lipoma measuring 3 cm. Bones: No acute osseous finding. Mild degenerative changes at L3-L4. IMPRESSION: 1. No acute intra-abdominal finding 2. Stable large right abdominal wall hernia as described. 3. Absent right kidney TECHNICAL DOCUMENTATION: Quality ID # [id number]: Final reports with documentation of one or more dose reduction techniques (e.g., Automated exposure control, adjustment of the mA and/or kV according to patient size, use of iterative reconstruction technique) 2010 [employer]- All Rights Reserved Chest X-Ray 02/18/18 01:45 IMPRESSION: No acute cardiopulmonary findings. Assessment & Plan - Diagnosis (1) Chronic kidney disease (CKD) stage G4/A1, severely decreased glomerular filtration rate (GFR) between 15-29 mL/min/1.73 square meter and albuminuria creatinine ratio less than 30 mg/g Is this a current diagnosis for this admission?: Yes Plan: See attending physician orders. Improving. (2) Hyperkalemia Is this a current diagnosis for this admission?: Yes Plan: See attending physician orders. Improving. (3) Hypotension Qualifiers: Hypotension type: unspecified hypotension type Qualified Code(s): I95.9 - Hypotension, unspecified Is this a current diagnosis for this admission?: Yes Plan: Resolved. See attending physician orders. (4) Obstructive sleep apnea of adult Is this a current diagnosis for this admission?: Yes Plan: See attending physician orders. Maintain on BiPAP support as necessary. (5) Respiratory failure Qualifiers: Chronicity: acute on chronic Is this a current diagnosis for this admission?: Yes (6) Sepsis Qualifiers: Sepsis type: sepsis due to unspecified organism Qualified Code(s): A41.9 - Sepsis, unspecified organism Is this a current diagnosis for this admission?: Yes Plan: See attending physician orders. Improving maintain on Primaxin coverage. Follow up on culture report and WBC indices. (7) Diabetes mellitus type 2 in obese Is this a current diagnosis for this admission?: Yes Plan: See attending physician orders. Improving. (8) Anemia in chronic kidney disease (CKD) Qualifiers: Chronic kidney disease stage: stage 4 (severe) Qualified Code(s): N18.4 - Chronic kidney disease, stage 4 (severe) Is this a current diagnosis for this admission?: Yes Plan: See attending physician orders. (9) Mixed anxiety and depressive disorder Is this a current diagnosis for this admission?: Yes Plan: See attending physician orders. (10) Morbid obesity with BMI of 45.0-49.9, adult Is this a current diagnosis for this admission?: Yes Plan: See attending physician orders. - Time Time Spent with patient: 25-34 minutes Medications reviewed and adjusted accordingly: Yes Anticipated discharge: Home with Homehealth Within: Other - Inpatient Certification Based on my medical assessment, after consideration of the patient's comorbidities, presenting symptoms, or acuity I expect that the services needed warrant INPATIENT care.: Yes I certify that my determination is in accordance with my understanding of Medicare's requirements for reasonable and necessary INPATIENT services [42 CFR 412.3e].: Yes Medical Necessity: Need Close Monitoring Due to Risk of Patient Decompensation, Need For IV Fluids, Need For Continuous Telemetry Monitoring, Need for IV Antibiotics, Risk of Complication if Not Cared For in Hospital Post Hospital Care: D/C [facility] Documentation - Plan Summary Plan Summary: See attending physician orders. Improving.
[2018-02-20] MEDS ORDERED: (PENDING PHARMACY ID) (Bupropion Hcl [Bupropion Xl] 150 MG) PO SCH (10:00)
[2018-02-20] MEDS: FLUOXETINE HCL 20 MG CAPSULE PO SCH (11:32)
[2018-02-20] MEDS: ASPIRIN 325 MG TABLET, ENT COATED PO SCH (11:32)
[2018-02-20] MEDS: METOPROLOL SUCCINATE 50 MG TAB.SR.24H PO SCH (11:32)
[2018-02-20] MEDS: FUROSEMIDE 40 MG TABLET PO SCH (11:33)
[2018-02-20] MEDS: ISOSORBIDE MONONITRATE 30 MG TAB.ER.24H PO SCH (11:33)
[2018-02-20] MEDS: LISINOPRIL 10 MG TABLET PO SCH (11:33)
[2018-02-20] MEDS: FERROUS SULFATE 325 MG TABLET PO SCH ×2 (11:33→18:31)
[2018-02-20] MEDS: POLYETHYLENE GLYCOL 3350 POWDER 17 GM/1 PACKET PO SCH (11:34)
[2018-02-20] MEDS: ENOXAPARIN SODIUM INJ 40 MG/0.4 ML DISP.SYRIN SUBCUT SCH (11:35)
[2018-02-20] MEDS: LIDOCAINE 5% (700 MG) TRANSDERMAL ADH..PATCH TP SCH (11:42)
[2018-02-20] MEDS: BUPROPION HCL 75 MG TABLET PO SCH ×2 (11:43→22:02)
[2018-02-20] MEDS: RANOLAZINE 500 MG TAB.SR.12H PO SCH ×2 (11:43→22:05)
[2018-02-20] MEDS: ONDANSETRON HCL INJ/PF 4 MG/2 ML SDV IV PRN (15:54)
[2018-02-20] MEDS: NORMAL SALINE 1000 ML 1,000 ML IV PRN (15:58)
--- NOTE | 2018-02-20 18:54 | PDOC PROGRESS REPORT ---
Subjective Progress Note for:: 02/20/18 Subjective:: Patient seems to be doing better with gradual improvement. Patient still very fatigued and tired. Dyspnea is much improved. Potassium level is now down. It was noted to be 4.2. Serum creatinine has also improved. Pt is denying any chest arm or neck discomfort. Patient denying any PND, orthopnea. Patient denied any sustained palpitations, dizziness, syncope, near syncope. Patient denying any fever chills. Patient denying any other significant discomfort. Patient is maintaining sinus rhythm. Review of systems: Rest review of systems negative. Medications: Medications have been reviewed. Reason For Visit: SEPSIS/CHRONIC CHF/CHRONIC KIDNEY DISEASE Physical Exam Vital Signs: Temp Pulse Resp BP Pulse Ox 99.1 F 64 27 H 156/82 H 98 02/20/18 18:00 02/20/18 14:00 02/20/18 18:00 02/20/18 17:19 02/20/18 16:00 Intake & Output 02/19/18 02/20/18 02/21/18 06:59 06:59 06:59 Intake Total 1398 2200 1950 Output Total 5725 3400 1999 Balance -4327 -1200 -50 Weight 138.5 kg 134.5 kg 134.5 kg Exam: GENERAL: well-nourished and in no acute distress. Alert and oriented x3 HEAD: Atraumatic, normocephalic. EYES: Pupils equal round and reactive to light, extraocular movements intact, sclera anicteric, conjunctiva are normal. ENT: TMs normal, nares patent, oropharynx clear without exudates. Moist mucous membranes. No oral ulcerations or bleeding gums noted NECK: supple without lymphadenopathy. Trachea is central. No cervical or axillary lymphadenopathy noted. Carotids are 2+, JVD WNL LUNGS: Respiration seems nonlabored, no significant accessory muscle action noted. Breath sounds clear to auscultation bilaterally and equal noted. No wheezes rales or rhonchi noted. No significant dullness noted on percussion. CHEST: Palpation of the chest wall shows no significant chest wall tenderness. HEART: [employer] MA[employer]GER AGRICULTURE, No PSH, 1/6 PAO aortic area, 1/6 meza systolic murmur mitral area, no rubs, no gallops. ABDOMEN: Soft, no significant tenderness appreciated, normoactive bowel sounds. No guarding, no rebound. No rigidity noted . No masses appreciated. EXTREMITIES: Pedal pulses are 1-2+, no calf tenderness noted. No clubbing or cyanosis. 1+ pedal edema noted NEUROLOGICAL: Focused neurological exam showed no significant neurologic deficit. Normal speech, no focal weakness appreciated. PSYCH: Normal mood, normal affect. Judgment and insight within normal limits. SKIN: No significant ecchymosis, skin is noted to be warm. MUSCULOSKELETAL EXAM: No significant acute joint swelling noted. Results Laboratory Results: 02/20/18 06:28 02/20/18 06:28 02/20/18 02/20/18 06:28 06:28 WBC 13.3 H RBC 3.49 L Hgb 9.6 L Hct 29.7 L MCV 85 MCH 27.6 MCHC 32.3 RDW 15.0 H Plt Count 320 Seg Neutrophils % 74.6 Lymphocytes % 17.1 Monocytes % 4.6 Eosinophils % 2.8 Basophils % 0.9 Absolute Neutrophils 9.9 H Absolute Lymphocytes 2.3 Absolute Monocytes 0.6 Absolute Eosinophils 0.4 Absolute Basophils 0.1 Sodium 143.1 Potassium 4.2 Chloride 104 Carbon Dioxide 25 Anion Gap 14 BUN 31 H Creatinine 1.66 H Est GFR ( Amer) 39 L Est GFR (Non-Af Amer) 32 L Glucose 178 H Calcium 8.9 02/18/18 02/18/18 02/18/18 03:07 03:07 08:32 Creatine Kinase 127 117 CK-MB (CK-2) 3.53 Troponin I < 0.012 02/18/18 02/18/18 02/18/18 08:32 15:40 15:40 Creatine Kinase 96 CK-MB (CK-2) 3.60 2.64 Troponin I < 0.012 < 0.012 EKG Comments: Shows sinus rhythm without any sustained tachycardia or bradycardia Impressions: Abdomen/Pelvis CT 02/17/18 22:30 IMPRESSION: No acute intrathoracic finding. TECHNICAL DOCUMENTATION: Quality ID # 436: Final reports with documentation of one or more dose reduction techniques (e.g., Automated exposure control, adjustment of the mA and/or kV according to patient size, use of iterative reconstruction technique) 2010 [employer]- All Rights Reserved EXAM DESCRIPTION: CT ABDOMEN AND PELVIS WITHOUT IV CONTRAST COMPLETED DATE/TME: 02/17/2018 22:30 CLINICAL HISTORY: 57 years, Female, sepsis COMPARISON: None. TECHNIQUE: Contiguous axial images of the abdomen and pelvis were obtained without IV contrast followed by reconstruction images. This exam was performed according to our departmental dose-optimization program, which includes automated exposure control, adjustment of the mA and/or kV according to patient size and/or use of iterative reconstruction technique. Images stored on PACS. All CT scanners at this facility use dose modulation, iterative reconstruction, and/or weight based dosing when appropriate to reduce radiation dose to as low as reasonably achievable (ALARA). [facility]: Dose Right [facility]: CareDose [facility]: Dose Right [facility]: Teradose 4D [facility]: [place] LIMITATIONS: None. FINDINGS: Liver: Within normal limits Gallbladder/Bile ducts: Cholecystectomy clips are seen in gallbladder fossa. No intra or extrahepatic duct dilatation. Spleen: Within normal limits Pancreas: Within normal limits Adrenal glands: Within normal limits Kidneys/Bladder: Again noted, absent right kidney. No left renal stones or hydronephrosis. Contracted bladder without significant findings. GI tract: Stable appearance of a large right abdominal wall hernia with herniated cecum, portions of the ascending colon and multiple small bowel loops. Abdominal wall defect measures 9.2 cm AP x 8.6 cm CC. The most lateral aspect of the hernia sac is outside field of view. The visualized portions of the hernia sac show no evidence of free fluid or bowel dilatation. No evidence of obstruction or active inflammatory process. No intra-abdominal collection. Uterus/adnexa: Anteverted uterus. No suspicious adnexal lesion. Vascular structures: Scattered vascular calcifications Free fluid: No free fluid. Lymph nodes: No radiographically enlarged lymph nodes Soft tissues: Large right abdominal wall hernia as described above. Incidentally noted left obturator externus intramuscular lipoma measuring 3 cm. Bones: No acute osseous finding. Mild degenerative changes at L3-L4. IMPRESSION: 1. No acute intra-abdominal finding 2. Stable large right abdominal wall hernia as described. 3. Absent right kidney TECHNICAL DOCUMENTATION: Quality ID # 436: Final reports with documentation of one or more dose reduction techniques (e.g., Automated exposure control, adjustment of the mA and/or kV according to patient size, use of iterative reconstruction technique) 2010 [employer]- All Rights Reserved Chest CT 02/17/18 22:30 IMPRESSION: No acute intrathoracic finding. TECHNICAL DOCUMENTATION: Quality ID # 436: Final reports with documentation of one or more dose reduction techniques (e.g., Automated exposure control, adjustment of the mA and/or kV according to patient size, use of iterative reconstruction technique) 2010 [employer]- All Rights Reserved EXAM DESCRIPTION: CT ABDOMEN AND PELVIS WITHOUT IV CONTRAST COMPLETED DATE/TME: 02/17/2018 22:30 CLINICAL HISTORY: 57 years, Female, sepsis COMPARISON: None. TECHNIQUE: Contiguous axial images of the abdomen and pelvis were obtained without IV contrast followed by reconstruction images. This exam was performed according to our departmental dose-optimization program, which includes automated exposure control, adjustment of the mA and/or kV according to patient size and/or use of iterative reconstruction technique. Images stored on PACS. All CT scanners at this facility use dose modulation, iterative reconstruction, and/or weight based dosing when appropriate to reduce radiation dose to as low as reasonably achievable (ALARA). [facility]: Dose Right [facility]: CareDose [facility]: Dose Right [facility]: Teradose 4D [facility]: [place] LIMITATIONS: None. FINDINGS: Liver: Within normal limits Gallbladder/Bile ducts: Cholecystectomy clips are seen in gallbladder fossa. No intra or extrahepatic duct dilatation. Spleen: Within normal limits Pancreas: Within normal limits Adrenal glands: Within normal limits Kidneys/Bladder: Again noted, absent right kidney. No left renal stones or hydronephrosis. Contracted bladder without significant findings. GI tract: Stable appearance of a large right abdominal wall hernia with herniated cecum, portions of the ascending colon and multiple small bowel loops. Abdominal wall defect measures 9.2 cm AP x 8.6 cm CC. The most lateral aspect of the hernia sac is outside field of view. The visualized portions of the hernia sac show no evidence of free fluid or bowel dilatation. No evidence of obstruction or active inflammatory process. No intra-abdominal collection. Uterus/adnexa: Anteverted uterus. No suspicious adnexal lesion. Vascular structures: Scattered vascular calcifications Free fluid: No free fluid. Lymph nodes: No radiographically enlarged lymph nodes Soft tissues: Large right abdominal wall hernia as described above. Incidentally noted left obturator externus intramuscular lipoma measuring 3 cm. Bones: No acute osseous finding. Mild degenerative changes at L3-L4. IMPRESSION: 1. No acute intra-abdominal finding 2. Stable large right abdominal wall hernia as described. 3. Absent right kidney TECHNICAL DOCUMENTATION: Quality ID # 436: Final reports with documentation of one or more dose reduction techniques (e.g., Automated exposure control, adjustment of the mA and/or kV according to patient size, use of iterative reconstruction technique) 2010 [employer]- All Rights Reserved Chest X-Ray 02/18/18 01:45 IMPRESSION: No acute cardiopulmonary findings. Assessment & Plan - Diagnosis (1) Hypotension Qualifiers: Hypotension type: unspecified hypotension type Qualified Code(s): I95.9 - Hypotension, unspecified Is this a current diagnosis for this admission?: Yes (2) Hyperkalemia Is this a current diagnosis for this admission?: Yes (3) Sepsis Qualifiers: Sepsis type: sepsis due to unspecified organism Qualified Code(s): A41.9 - Sepsis, unspecified organism Is this a current diagnosis for this admission?: Yes (4) Obstructive sleep apnea of adult Is this a current diagnosis for this admission?: Yes (5) Chronic kidney disease (CKD) stage G4/A1, severely decreased glomerular filtration rate (GFR) between 15-29 mL/min/1.73 square meter and albuminuria creatinine ratio less than 30 mg/g Is this a current diagnosis for this admission?: Yes (6) Morbid obesity with BMI of 45.0-49.9, adult Is this a current diagnosis for this admission?: Yes (7) Diabetes Qualifiers: Diabetes mellitus type: type 2 Diabetes mellitus complication status: without complication Is this a current diagnosis for this admission?: Yes (8) Probable sepsis Is this a current diagnosis for this admission?: Yes - Notes Notes: Hypotension: Improved and resolved. Most likely related to sepsis, underlying relative hypovolemia. Monitor for development of any hypertension. Hyperkalemia: Resolved. Possibly related to sepsis and hypotension leading to renal hypoperfusion. Potassium level has come down. Advanced chronic kidney disease: Patient has single functioning kidney. She had a nephrectomy on one side. Patient claims that she was told she had CKD stage III. Today's renal function shows that levels are now down to stage III. Sleep apnea syndrome. Recommend CPAP therapy. Patient was noted to be severely acidotic and with CO2 retention. Patient has history of CPAP use and also with in-line oxygen use. Process Engineering Manager are on board. Diabetes: Recommend good control of diabetes. Incarcerated hernia: Surgeon saw the patient. Needs to be fixed at some time when patient general condition improved. Overall prognosis is guarded at this time. Overall has shown gradual improvement. Patient can be moved out to the [facility]. Patient doing much improved. - Time Time with patient: 15-25 minutes - CODE STATUS was discussed, patient remains full code. Surrogate decision-maker unchanged. Multiple medical problems were addressed. More than 50% of the time spent coordinating care, discussing management plans with involved caregivers. Management plans discussed with involved personnels. Medical decision making was of moderate to high complexity , patient's has multiple comorbidities. Medications reviewed and adjusted accordingly: Yes
[2018-02-20] MEDS: FAMOTIDINE 20 MG TABLET PO SCH (22:02)
[2018-02-21] MEDS: ONDANSETRON HCL INJ/PF 4 MG/2 ML SDV IV PRN (00:37)
[2018-02-21] MEDS: IMIPENEM/CILASTATIN SODIUM 500 MG in NORMAL SALINE 100 ML IV SCH ×4 (03:42→21:27)
[2018-02-21] MEDS: GABAPENTIN 300 MG CAPSULE PO SCH ×3 (05:05→21:28)
[2018-02-21] MEDS: LANSOPRAZOLE 30 MG TAB.RAP.DR PO SCH (05:06)
[2018-02-21 05:20] LABS: ARTERIAL BLOOD BASE EXCESS 2.3 mmol/L; ARTERIAL BLOOD H2CO3 1.16 mmol/L (1.05-1.35); ARTERIAL BLOOD HCO3 26.3 mmol/L (20-26); ARTERIAL BLOOD O2 SATURATION 98.9 % (94-98); ARTERIAL BLOOD PCO2 38.6 mmHg (35-45); ARTERIAL BLOOD PH 7.45 (7.35-7.45); ARTERIAL BLOOD TOTAL CO2 27.5 mmol/L (21-25)
[2018-02-21 05:23] LABS: ARTERIAL BLOOD FIO2 30%
[2018-02-21 05:46] LABS: ABSOLUTE BASOPHILS # (AUTO) 0.1 10^3/uL (0.0-0.2); ABSOLUTE EOSINOPHILS # (AUTO) 0.5 10^3/uL (0.0-0.6); ABSOLUTE LYMPHOCYTES (AUTO) 3.3 10^3/uL (0.5-4.7); ABSOLUTE MONOCYTES (AUTO) 0.8 10^3/uL (0.1-1.4); EOSINOPHILS % (AUTO) 4.2 % (0-6); HEMATOCRIT 27.3 % (36.0-47.0); HEMOGLOBIN 9.1 g/dL (12.0-15.5); LYMPHOCYTES % (AUTO) 27.9 % (13-45); MEAN CORPUSCULAR HEMOGLOBIN 28.1 pg (27.0-33.4); MEAN CORPUSCULAR HGB CONC 33.1 g/dL (32.0-36.0); MEAN CORPUSCULAR VOLUME 85 fl (80-97); MONOCYTES % (AUTO) 6.6 % (3-13); PLATELET COUNT 307 10^3/uL (150-450); RED BLOOD COUNT 3.22 10^6/uL (3.72-5.28); RED CELL DISTRIBUTION WIDTH 14.8 % (11.5-14.0); SEGMENTED NEUTROPHILS % (AUTO) 60.3 % (42-78); TOTAL CELLS COUNTED % (AUTO) 100 %; WHITE BLOOD COUNT 11.7 10^3/uL (4.0-10.5)
[2018-02-21 05:57] LABS: ALANINE AMINOTRANSFERASE 38 U/L (9-52); ALBUMIN 3.2 g/dL (3.5-5.0); ALKALINE PHOSPHATASE 74 U/L (38-126); ANION GAP 13 (5-19); ASPARTATE AMINO TRANSFERASE 19 U/L (14-36); BILIRUBIN,DIRECT 0.4 mg/dL (0.0-0.4); BILIRUBIN,TOTAL 0.4 mg/dL (0.2-1.3); BLOOD UREA NITROGEN 31 mg/dL (7-20); CALCIUM 8.7 mg/dL (8.4-10.2); CARBON DIOXIDE 25 mmol/L (22-30); CHLORIDE 106 mmol/L (98-107); GLUCOSE 159 mg/dL (75-110); PHOSPHORUS 3.9 mg/dL (2.5-4.5); TOTAL PROTEIN 6.5 g/dL (6.3-8.2)
[2018-02-21] MEDS: LISINOPRIL 10 MG TABLET PO SCH (09:05)
[2018-02-21] MEDS: FLUOXETINE HCL 20 MG CAPSULE PO SCH (09:05)
[2018-02-21] MEDS: ASPIRIN 325 MG TABLET, ENT COATED PO SCH (09:06)
[2018-02-21] MEDS: FUROSEMIDE 40 MG TABLET PO SCH (09:06)
[2018-02-21] MEDS: FERROUS SULFATE 325 MG TABLET PO SCH ×2 (09:06→17:53)
[2018-02-21] MEDS: BUPROPION HCL 75 MG TABLET PO SCH ×2 (09:06→21:29)
[2018-02-21] MEDS: METOPROLOL SUCCINATE 50 MG TAB.SR.24H PO SCH (09:06)
[2018-02-21] MEDS: ISOSORBIDE MONONITRATE 30 MG TAB.ER.24H PO SCH (09:06)
[2018-02-21] MEDS: ENOXAPARIN SODIUM INJ 40 MG/0.4 ML DISP.SYRIN SUBCUT SCH (09:07)
[2018-02-21] MEDS: LIDOCAINE 5% (700 MG) TRANSDERMAL ADH..PATCH TP SCH (09:07)
[2018-02-21] MEDS: POLYETHYLENE GLYCOL 3350 POWDER 17 GM/1 PACKET PO SCH (09:07)
[2018-02-21] MEDS: RANOLAZINE 500 MG TAB.SR.12H PO SCH ×2 (09:08→21:27)
[2018-02-21] MEDS: INSULIN LISPRO 100 UNIT/ML 3 ML VIAL SUBCUT PRN ×4 (09:08→21:41)
--- NOTE | 2018-02-21 10:45 | RADIOLOGY REPORT (SQ) ---
EXAM DESCRIPTION: CHEST SINGLE VIEW COMPLETED DATE/TIME: 02/21/2018 8:00 am REASON FOR STUDY: resp failure COMPARISON: 02/18/2018 NUMBER OF VIEWS: One view. TECHNIQUE: Single frontal radiographic image of the chest acquired. LIMITATIONS: Body habitus. FINDINGS: LUNGS AND PLEURA: Stable appearance. No infiltrate. MEDIASTINUM AND HEART: Stable heart size and mediastinal structures. SUPPORT DEVICES: Appropriate location without change. BONY STRUCTURES: No acute findings. HARDWARE: None. OTHER: No other significant finding. IMPRESSION: STABLE APPEARANCE OF THE CHEST. SUPPORT DEVICES UNCHANGED. Reading location - IP/workstation name: [email or web address]
[2018-02-21] MEDS: ACETAMINOPHEN 325 MG TABLET PO PRN (11:47)
[2018-02-21] MEDS: NORMAL SALINE 1000 ML 1,000 ML IV PRN (16:46)
--- NOTE | 2018-02-21 18:12 | PDOC PROGRESS REPORT ---
Subjective Progress Note for:: 02/21/18 Subjective:: Patient reported episodes of nausea but no definite vomiting. No abdominal pain. Satisfactory bowel movement. No chest pain or difficulty with breathing. No fever or chills. Reason For Visit: SEPSIS/CHRONIC CHF/CHRONIC KIDNEY DISEASE Physical Exam Vital Signs: Temp Pulse Resp BP Pulse Ox 98.4 F 60 18 160/87 H 98 02/21/18 03:25 02/21/18 03:25 02/21/18 03:52 02/21/18 03:25 02/21/18 03:52 Intake & Output 02/20/18 02/21/18 02/22/18 06:59 06:59 06:59 Intake Total 2200 2390 Output Total 3400 4400 -1199 Weight 134.5 kg 134 kg Physical Exam: General appearance: PRESENT: no acute distress, morbidly obese Head exam: PRESENT: atraumatic, normocephalic Eye exam: PRESENT: conjunctiva pink, EOMI, PERRLA. ABSENT: scleral icterus Ear exam: PRESENT: normal external ear exam Mouth exam: PRESENT: moist Respiratory exam: PRESENT: clear to auscultation tarsha Cardiovascular exam: PRESENT: RRR. ABSENT: diastolic murmur, rubs, systolic murmur Vascular exam: PRESENT: normal capillary refill. ABSENT: pallor GI/Abdominal exam: PRESENT: normal bowel sounds, soft. ABSENT: distended, guarding, mass, organolmegaly, rebound, tenderness Extremities exam: ABSENT: pedal edema Neurological exam: PRESENT: alert, awake, oriented to person, oriented to place , oriented to time, oriented to situation, CN II-XII grossly intact. ABSENT: motor sensory deficit Psychiatric exam: PRESENT: appropriate affect, normal mood. ABSENT: homicidal ideation, suicidal ideation Skin exam: PRESENT: dry, warm Results Laboratory Results: 02/21/18 04:20 02/21/18 04:20 02/21/18 02/21/18 02/21/18 04:20 04:20 04:35 WBC 11.7 H RBC 3.22 L Hgb 9.1 L Hct 27.3 L MCV 85 MCH 28.1 MCHC 33.1 RDW 14.8 H Plt Count 307 Seg Neutrophils % 60.3 Lymphocytes % 27.9 Monocytes % 6.6 Eosinophils % 4.2 Basophils % 1.0 Absolute Neutrophils 7.0 Absolute Lymphocytes 3.3 Absolute Monocytes 0.8 Absolute Eosinophils 0.5 Absolute Basophils 0.1 Carbonic Acid 1.16 HCO3/H2CO3 Ratio 22:1 ABG pH 7.45 ABG pCO2 38.6 ABG pO2 138.0 H ABG HCO3 26.3 H ABG O2 Saturation 98.9 H ABG Base Excess 2.3 FiO2 30% Sodium 144.0 Potassium 4.0 Chloride 106 Carbon Dioxide 25 Anion Gap 13 BUN 31 H Creatinine 1.76 H Est GFR ( Amer) 36 L Est GFR (Non-Af Amer) 30 L Glucose 159 H Calcium 8.7 Phosphorus 3.9 Magnesium 1.6 Total Bilirubin 0.4 AST 19 ALT 38 Alkaline Phosphatase 74 Total Protein 6.5 Albumin 3.2 L 02/18/18 02/18/18 02/18/18 03:07 03:07 08:32 Creatine Kinase 127 117 CK-MB (CK-2) 3.53 Troponin I < 0.012 02/18/18 02/18/18 02/18/18 08:32 15:40 15:40 Creatine Kinase 96 CK-MB (CK-2) 3.60 2.64 Troponin I < 0.012 < 0.012 Impressions: Abdomen/Pelvis CT 02/17/18 22:30 IMPRESSION: No acute intrathoracic finding. TECHNICAL DOCUMENTATION: Quality ID # 436: Final reports with documentation of one or more dose reduction techniques (e.g., Automated exposure control, adjustment of the mA and/or kV according to patient size, use of iterative reconstruction technique) 2010 [employer]- All Rights Reserved EXAM DESCRIPTION: CT ABDOMEN AND PELVIS WITHOUT IV CONTRAST COMPLETED DATE/TME: 02/17/2018 22:30 CLINICAL HISTORY: 57 years, Female, sepsis COMPARISON: None. TECHNIQUE: Contiguous axial images of the abdomen and pelvis were obtained without IV contrast followed by reconstruction images. This exam was performed according to our departmental dose-optimization program, which includes automated exposure control, adjustment of the mA and/or kV according to patient size and/or use of iterative reconstruction technique. Images stored on PACS. All CT scanners at this facility use dose modulation, iterative reconstruction, and/or weight based dosing when appropriate to reduce radiation dose to as low as reasonably achievable (ALARA). [facility]: Dose Right [facility]: CareDose [facility]: Dose Right [facility]: Teradose 4D [facility]: EasyRun LIMITATIONS: None. FINDINGS: Liver: Within normal limits Gallbladder/Bile ducts: Cholecystectomy clips are seen in gallbladder fossa. No intra or extrahepatic duct dilatation. Spleen: Within normal limits Pancreas: Within normal limits Adrenal glands: Within normal limits Kidneys/Bladder: Again noted, absent right kidney. No left renal stones or hydronephrosis. Contracted bladder without significant findings. GI tract: Stable appearance of a large right abdominal wall hernia with herniated cecum, portions of the ascending colon and multiple small bowel loops. Abdominal wall defect measures 9.2 cm AP x 8.6 cm CC. The most lateral aspect of the hernia sac is outside field of view. The visualized portions of the hernia sac show no evidence of free fluid or bowel dilatation. No evidence of obstruction or active inflammatory process. No intra-abdominal collection. Uterus/adnexa: Anteverted uterus. No suspicious adnexal lesion. Vascular structures: Scattered vascular calcifications Free fluid: No free fluid. Lymph nodes: No radiographically enlarged lymph nodes Soft tissues: Large right abdominal wall hernia as described above. Incidentally noted left obturator externus intramuscular lipoma measuring 3 cm. Bones: No acute osseous finding. Mild degenerative changes at L3-L4. IMPRESSION: 1. No acute intra-abdominal finding 2. Stable large right abdominal wall hernia as described. 3. Absent right kidney TECHNICAL DOCUMENTATION: Quality ID # 436: Final reports with documentation of one or more dose reduction techniques (e.g., Automated exposure control, adjustment of the mA and/or kV according to patient size, use of iterative reconstruction technique) 2010 [employer]- All Rights Reserved Chest CT 02/17/18 22:30 IMPRESSION: No acute intrathoracic finding. TECHNICAL DOCUMENTATION: Quality ID # 436: Final reports with documentation of one or more dose reduction techniques (e.g., Automated exposure control, adjustment of the mA and/or kV according to patient size, use of iterative reconstruction technique) 2010 [employer]- All Rights Reserved EXAM DESCRIPTION: CT ABDOMEN AND PELVIS WITHOUT IV CONTRAST COMPLETED DATE/TME: 02/17/2018 22:30 CLINICAL HISTORY: 57 years, Female, sepsis COMPARISON: None. TECHNIQUE: Contiguous axial images of the abdomen and pelvis were obtained without IV contrast followed by reconstruction images. This exam was performed according to our departmental dose-optimization program, which includes automated exposure control, adjustment of the mA and/or kV according to patient size and/or use of iterative reconstruction technique. Images stored on PACS. All CT scanners at this facility use dose modulation, iterative reconstruction, and/or weight based dosing when appropriate to reduce radiation dose to as low as reasonably achievable (ALARA). [facility]: Dose Right [facility]: CareDose [facility]: Dose Right [facility]: Teradose 4D [facility]: EasyRun LIMITATIONS: None. FINDINGS: Liver: Within normal limits Gallbladder/Bile ducts: Cholecystectomy clips are seen in gallbladder fossa. No intra or extrahepatic duct dilatation. Spleen: Within normal limits Pancreas: Within normal limits Adrenal glands: Within normal limits Kidneys/Bladder: Again noted, absent right kidney. No left renal stones or hydronephrosis. Contracted bladder without significant findings. GI tract: Stable appearance of a large right abdominal wall hernia with herniated cecum, portions of the ascending colon and multiple small bowel loops. Abdominal wall defect measures 9.2 cm AP x 8.6 cm CC. The most lateral aspect of the hernia sac is outside field of view. The visualized portions of the hernia sac show no evidence of free fluid or bowel dilatation. No evidence of obstruction or active inflammatory process. No intra-abdominal collection. Uterus/adnexa: Anteverted uterus. No suspicious adnexal lesion. Vascular structures: Scattered vascular calcifications Free fluid: No free fluid. Lymph nodes: No radiographically enlarged lymph nodes Soft tissues: Large right abdominal wall hernia as described above. Incidentally noted left obturator externus intramuscular lipoma measuring 3 cm. Bones: No acute osseous finding. Mild degenerative changes at L3-L4. IMPRESSION: 1. No acute intra-abdominal finding 2. Stable large right abdominal wall hernia as described. 3. Absent right kidney TECHNICAL DOCUMENTATION: Quality ID # 436: Final reports with documentation of one or more dose reduction techniques (e.g., Automated exposure control, adjustment of the mA and/or kV according to patient size, use of iterative reconstruction technique) 2010 [employer]- All Rights Reserved Assessment & Plan - Diagnosis (1) Chronic kidney disease (CKD) stage G4/A1, severely decreased glomerular filtration rate (GFR) between 15-29 mL/min/1.73 square meter and albuminuria creatinine ratio less than 30 mg/g Is this a current diagnosis for this admission?: Yes (2) Hyperkalemia Is this a current diagnosis for this admission?: Yes (3) Hypotension Qualifiers: Hypotension type: unspecified hypotension type Qualified Code(s): I95.9 - Hypotension, unspecified Is this a current diagnosis for this admission?: Yes (4) Obstructive sleep apnea of adult Is this a current diagnosis for this admission?: Yes (5) Respiratory failure Qualifiers: Chronicity: acute on chronic Is this a current diagnosis for this admission?: Yes (6) Sepsis Qualifiers: Sepsis type: sepsis due to unspecified organism Qualified Code(s): A41.9 - Sepsis, unspecified organism Is this a current diagnosis for this admission?: Yes (7) Diabetes mellitus type 2 in obese Is this a current diagnosis for this admission?: Yes (8) Anemia in chronic kidney disease (CKD) Qualifiers: Chronic kidney disease stage: stage 4 (severe) Qualified Code(s): N18.4 - Chronic kidney disease, stage 4 (severe) Is this a current diagnosis for this admission?: Yes (9) Mixed anxiety and depressive disorder Is this a current diagnosis for this admission?: Yes (10) Morbid obesity with BMI of 45.0-49.9, adult Is this a current diagnosis for this admission?: Yes - Time Time Spent with patient: 25-34 minutes Medications reviewed and adjusted accordingly: Yes Anticipated discharge: Home with Homehealth Within: Other - Inpatient Certification Based on my medical assessment, after consideration of the patient's comorbidities, presenting symptoms, or acuity I expect that the services needed warrant INPATIENT care.: Yes I certify that my determination is in accordance with my understanding of Medicare's requirements for reasonable and necessary INPATIENT services [42 CFR 412.3e].: Yes Medical Necessity: Need Close Monitoring Due to Risk of Patient Decompensation, Need For IV Fluids, Need For Continuous Telemetry Monitoring, Need for IV Antibiotics, Risk of Complication if Not Cared For in Hospital Post Hospital Care: D/C M1 Armor Crewman Documentation - Plan Summary Plan Summary: D/C Anderson catheter. Adjust diabetes mellitus management with addition of premeal Humalog Insulin bolus dosing with sliding scale demand. Restart on SynJardy therapy. Continue other current medication management. Follow up on blood culture findings. Urine culture has been no growth x 2 days.
--- NOTE | 2018-02-21 19:30 | PDOC PROGRESS REPORT ---
Subjective Progress Note for:: 02/21/18 Subjective:: Patient seems to be doing better with gradual improvement. Patient still very fatigued and tired. Dyspnea is much improved. Potassium level has normalized. Patient has noted some nausea and decreased appetite but denying any chest pain. Patient is maintaining sinus rhythm. Review of systems: Rest review of systems negative. Medications: Medications have been reviewed. Reason For Visit: SEPSIS/CHRONIC CHF/CHRONIC KIDNEY DISEASE Physical Exam Vital Signs: Temp Pulse Resp BP Pulse Ox 98.3 F 62 20 159/79 H 94 02/21/18 11:31 02/21/18 14:00 02/21/18 11:31 02/21/18 11:31 02/21/18 11:31 Intake & Output 02/20/18 02/21/18 02/22/18 06:59 06:59 06:59 Intake Total 2200 2390 2422 Output Total 3400 4400 1600 -1199 822 Weight 134.5 kg 134 kg Exam: GENERAL: well-nourished and in no acute distress. Alert and oriented x3 HEAD: Atraumatic, normocephalic. EYES: Pupils equal round and reactive to light, extraocular movements intact, sclera anicteric, conjunctiva are normal. ENT: TMs normal, nares patent, oropharynx clear without exudates. Moist mucous membranes. No oral ulcerations or bleeding gums noted NECK: supple without lymphadenopathy. Trachea is central. No cervical or axillary lymphadenopathy noted. Carotids are 2+, JVD WNL LUNGS: Respiration seems nonlabored, no significant accessory muscle action noted. Breath sounds clear to auscultation bilaterally and equal noted. No wheezes rales or rhonchi noted. No significant dullness noted on percussion. CHEST: Palpation of the chest wall shows no significant chest wall tenderness. 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 ABDOMEN: Soft, no significant tenderness appreciated, normoactive bowel sounds. No guarding, no rebound. No rigidity noted . No masses appreciated. EXTREMITIES: Pedal pulses are 1-2+, no calf tenderness noted. No clubbing or cyanosis. 1+ pedal edema noted NEUROLOGICAL: Focused neurological exam showed no significant neurologic deficit. Normal speech, no focal weakness appreciated. PSYCH: Normal mood, normal affect. Judgment and insight within normal limits. SKIN: No significant ecchymosis, skin is noted to be warm. MUSCULOSKELETAL EXAM: No significant acute joint swelling noted. Results Laboratory Results: 02/21/18 04:20 02/21/18 04:20 02/21/18 02/21/18 02/21/18 04:20 04:20 04:35 WBC 11.7 H RBC 3.22 L Hgb 9.1 L Hct 27.3 L MCV 85 MCH 28.1 MCHC 33.1 RDW 14.8 H Plt Count 307 Seg Neutrophils % 60.3 Lymphocytes % 27.9 Monocytes % 6.6 Eosinophils % 4.2 Basophils % 1.0 Absolute Neutrophils 7.0 Absolute Lymphocytes 3.3 Absolute Monocytes 0.8 Absolute Eosinophils 0.5 Absolute Basophils 0.1 Carbonic Acid 1.16 HCO3/H2CO3 Ratio 22:1 ABG pH 7.45 ABG pCO2 38.6 ABG pO2 138.0 H ABG HCO3 26.3 H ABG O2 Saturation 98.9 H ABG Base Excess 2.3 FiO2 30% Sodium 144.0 Potassium 4.0 Chloride 106 Carbon Dioxide 25 Anion Gap 13 BUN 31 H Creatinine 1.76 H Est GFR ( Amer) 36 L Est GFR (Non-Af Amer) 30 L Glucose 159 H Calcium 8.7 Phosphorus 3.9 Magnesium 1.6 Total Bilirubin 0.4 AST 19 ALT 38 Alkaline Phosphatase 74 Total Protein 6.5 Albumin 3.2 L 02/18/18 02/18/18 02/18/18 03:07 03:07 08:32 Creatine Kinase 127 117 CK-MB (CK-2) 3.53 Troponin I < 0.012 02/18/18 02/18/18 02/18/18 08:32 15:40 15:40 Creatine Kinase 96 CK-MB (CK-2) 3.60 2.64 Troponin I < 0.012 < 0.012 EKG Comments: Shows sinus rhythm without any sustained tachycardia or bradycardia Impressions: Abdomen/Pelvis CT 02/17/18 22:30 IMPRESSION: No acute intrathoracic finding. TECHNICAL DOCUMENTATION: Quality ID # 436: Final reports with documentation of one or more dose reduction techniques (e.g., Automated exposure control, adjustment of the mA and/or kV according to patient size, use of iterative reconstruction technique) 2010 [employer]- All Rights Reserved EXAM DESCRIPTION: CT ABDOMEN AND PELVIS WITHOUT IV CONTRAST COMPLETED DATE/TME: 02/17/2018 22:30 CLINICAL HISTORY: 57 years, Female, sepsis COMPARISON: None. TECHNIQUE: Contiguous axial images of the abdomen and pelvis were obtained without IV contrast followed by reconstruction images. This exam was performed according to our departmental dose-optimization program, which includes automated exposure control, adjustment of the mA and/or kV according to patient size and/or use of iterative reconstruction technique. Images stored on PACS. All CT scanners at this facility use dose modulation, iterative reconstruction, and/or weight based dosing when appropriate to reduce radiation dose to as low as reasonably achievable (ALARA). [facility]: Dose Right [facility]: CareDose [facility]: Dose Right [facility]: Teradose 4D [facility]: Tour Desk LIMITATIONS: None. FINDINGS: Liver: Within normal limits Gallbladder/Bile ducts: Cholecystectomy clips are seen in gallbladder fossa. No intra or extrahepatic duct dilatation. Spleen: Within normal limits Pancreas: Within normal limits Adrenal glands: Within normal limits Kidneys/Bladder: Again noted, absent right kidney. No left renal stones or hydronephrosis. Contracted bladder without significant findings. GI tract: Stable appearance of a large right abdominal wall hernia with herniated cecum, portions of the ascending colon and multiple small bowel loops. Abdominal wall defect measures 9.2 cm AP x 8.6 cm CC. The most lateral aspect of the hernia sac is outside field of view. The visualized portions of the hernia sac show no evidence of free fluid or bowel dilatation. No evidence of obstruction or active inflammatory process. No intra-abdominal collection. Uterus/adnexa: Anteverted uterus. No suspicious adnexal lesion. Vascular structures: Scattered vascular calcifications Free fluid: No free fluid. Lymph nodes: No radiographically enlarged lymph nodes Soft tissues: Large right abdominal wall hernia as described above. Incidentally noted left obturator externus intramuscular lipoma measuring 3 cm. Bones: No acute osseous finding. Mild degenerative changes at L3-L4. IMPRESSION: 1. No acute intra-abdominal finding 2. Stable large right abdominal wall hernia as described. 3. Absent right kidney TECHNICAL DOCUMENTATION: Quality ID # 436: Final reports with documentation of one or more dose reduction techniques (e.g., Automated exposure control, adjustment of the mA and/or kV according to patient size, use of iterative reconstruction technique) 2010 [employer]- All Rights Reserved Chest CT 02/17/18 22:30 IMPRESSION: No acute intrathoracic finding. TECHNICAL DOCUMENTATION: Quality ID # 436: Final reports with documentation of one or more dose reduction techniques (e.g., Automated exposure control, adjustment of the mA and/or kV according to patient size, use of iterative reconstruction technique) 2010 [employer]- All Rights Reserved EXAM DESCRIPTION: CT ABDOMEN AND PELVIS WITHOUT IV CONTRAST COMPLETED DATE/TME: 02/17/2018 22:30 CLINICAL HISTORY: 57 years, Female, sepsis COMPARISON: None. TECHNIQUE: Contiguous axial images of the abdomen and pelvis were obtained without IV contrast followed by reconstruction images. This exam was performed according to our departmental dose-optimization program, which includes automated exposure control, adjustment of the mA and/or kV according to patient size and/or use of iterative reconstruction technique. Images stored on PACS. All CT scanners at this facility use dose modulation, iterative reconstruction, and/or weight based dosing when appropriate to reduce radiation dose to as low as reasonably achievable (ALARA). [facility]: Dose Right [facility]: CareDose [facility]: Dose Right [facility]: Teradose 4D [facility]: Tour Desk LIMITATIONS: None. FINDINGS: Liver: Within normal limits Gallbladder/Bile ducts: Cholecystectomy clips are seen in gallbladder fossa. No intra or extrahepatic duct dilatation. Spleen: Within normal limits Pancreas: Within normal limits Adrenal glands: Within normal limits Kidneys/Bladder: Again noted, absent right kidney. No left renal stones or hydronephrosis. Contracted bladder without significant findings. GI tract: Stable appearance of a large right abdominal wall hernia with herniated cecum, portions of the ascending colon and multiple small bowel loops. Abdominal wall defect measures 9.2 cm AP x 8.6 cm CC. The most lateral aspect of the hernia sac is outside field of view. The visualized portions of the hernia sac show no evidence of free fluid or bowel dilatation. No evidence of obstruction or active inflammatory process. No intra-abdominal collection. Uterus/adnexa: Anteverted uterus. No suspicious adnexal lesion. Vascular structures: Scattered vascular calcifications Free fluid: No free fluid. Lymph nodes: No radiographically enlarged lymph nodes Soft tissues: Large right abdominal wall hernia as described above. Incidentally noted left obturator externus intramuscular lipoma measuring 3 cm. Bones: No acute osseous finding. Mild degenerative changes at L3-L4. IMPRESSION: 1. No acute intra-abdominal finding 2. Stable large right abdominal wall hernia as described. 3. Absent right kidney TECHNICAL DOCUMENTATION: Quality ID # 436: Final reports with documentation of one or more dose reduction techniques (e.g., Automated exposure control, adjustment of the mA and/or kV according to patient size, use of iterative reconstruction technique) 2010 [employer]- All Rights Reserved Chest X-Ray 02/21/18 06:00 IMPRESSION: STABLE APPEARANCE OF THE CHEST. SUPPORT DEVICES UNCHANGED. Assessment & Plan - Diagnosis (1) Hypotension Qualifiers: Hypotension type: unspecified hypotension type Qualified Code(s): I95.9 - Hypotension, unspecified Is this a current diagnosis for this admission?: Yes (2) Hyperkalemia Is this a current diagnosis for this admission?: Yes (3) Sepsis Qualifiers: Sepsis type: sepsis due to unspecified organism Qualified Code(s): A41.9 - Sepsis, unspecified organism Is this a current diagnosis for this admission?: Yes (4) Obstructive sleep apnea of adult Is this a current diagnosis for this admission?: Yes (5) Chronic kidney disease (CKD) stage G4/A1, severely decreased glomerular filtration rate (GFR) between 15-29 mL/min/1.73 square meter and albuminuria creatinine ratio less than 30 mg/g Is this a current diagnosis for this admission?: Yes (6) Morbid obesity with BMI of 45.0-49.9, adult Is this a current diagnosis for this admission?: Yes (7) Diabetes Qualifiers: Diabetes mellitus type: type 2 Diabetes mellitus complication status: without complication Is this a current diagnosis for this admission?: Yes (8) Probable sepsis Is this a current diagnosis for this admission?: Yes - Notes Notes: Chest x-ray obtained today reviewed. It shows normal cardiac silhouette. Right hemidiaphragm is elevated. No infiltrates noted in single AP film. Hypotension: Improved and resolved. Most likely related to sepsis, underlying relative hypovolemia. Monitor for development of any hypertension. Hyperkalemia: Resolved. Possibly related to sepsis and hypotension leading to renal hypoperfusion. Potassium level has come down. Advanced chronic kidney disease: Patient has single functioning kidney. She had a nephrectomy on one side. Patient claims that she was told she had CKD stage III. Today's renal function shows that levels are now down to stage III. Sleep apnea syndrome. Recommend CPAP therapy. Patient was noted to be severely acidotic and with CO2 retention. Patient has history of CPAP use and also with in-line oxygen use. Dental Laboratory Technology Teacher are on board. Diabetes: Recommend good control of diabetes. Incarcerated hernia: Surgeon saw the patient. Needs to be fixed at some time when patient general condition improved. Overall prognosis is guarded at this time. Overall has shown gradual improvement. Patient can be moved out to the [facility]. Patient doing much improved. - Time Time with patient: 15-25 minutes - CODE STATUS was discussed, patient remains full code. Surrogate decision-maker unchanged. Multiple medical problems were addressed. More than 50% of the time spent coordinating care, discussing management plans with involved caregivers. Management plans discussed with involved personnels. Medical decision making was of moderate to high complexity , patient's has multiple comorbidities. Medications reviewed and adjusted accordingly: Yes
[2018-02-21] MEDS: FAMOTIDINE 20 MG TABLET PO SCH (21:27)
[2018-02-22] MEDS: IMIPENEM/CILASTATIN SODIUM 500 MG in NORMAL SALINE 100 ML IV SCH ×4 (03:30→21:58)
[2018-02-22] MEDS: GABAPENTIN 300 MG CAPSULE PO SCH ×3 (05:18→22:00)
[2018-02-22] MEDS: LANSOPRAZOLE 30 MG TAB.RAP.DR PO SCH (05:18)
[2018-02-22] MEDS: INSULIN LISPRO 100 UNIT/ML 3 ML VIAL SUBCUT PRN ×2 (07:29→23:27)
[2018-02-22] MEDS: INSULIN LISPRO 100 UNIT/ML 3 ML VIAL SUBCUT SCH ×3 (07:29→17:10)
[2018-02-22] MEDS ORDERED: (PENDING PHARMACY ID) (Empagliflozin/Metformin Hcl [Synjardy Xr 25-1,000 Mg Tablet] 1 EACH PO SCH (08:00)
[2018-02-22] MEDS: FLUOXETINE HCL 20 MG CAPSULE PO SCH (08:42)
[2018-02-22] MEDS: METOPROLOL SUCCINATE 50 MG TAB.SR.24H PO SCH (09:48)
[2018-02-22] MEDS: FERROUS SULFATE 325 MG TABLET PO SCH ×2 (09:48→17:10)
[2018-02-22] MEDS: ASPIRIN 325 MG TABLET, ENT COATED PO SCH (09:49)
[2018-02-22] MEDS: BUPROPION HCL 75 MG TABLET PO SCH ×2 (09:49→22:00)
[2018-02-22] MEDS: LISINOPRIL 10 MG TABLET PO SCH (09:49)
[2018-02-22] MEDS: FUROSEMIDE 40 MG TABLET PO SCH (09:50)
[2018-02-22] MEDS: ISOSORBIDE MONONITRATE 30 MG TAB.ER.24H PO SCH (09:50)
[2018-02-22] MEDS: LIDOCAINE 5% (700 MG) TRANSDERMAL ADH..PATCH TP SCH (09:50)
[2018-02-22] MEDS: POLYETHYLENE GLYCOL 3350 POWDER 17 GM/1 PACKET PO SCH (09:50)
[2018-02-22] MEDS: ENOXAPARIN SODIUM INJ 40 MG/0.4 ML DISP.SYRIN SUBCUT SCH (09:50)
[2018-02-22] MEDS: INSULIN DETEMIR 100 UNIT/ML 3 ML PEN SUBCUT SCH ×2 (09:51→23:24)
[2018-02-22] MEDS: RANOLAZINE 500 MG TAB.SR.12H PO SCH ×2 (09:52→21:58)
[2018-02-22] MEDS: ACETAMINOPHEN 325 MG TABLET PO PRN (15:42)
[2018-02-22] MEDS: NORMAL SALINE 1000 ML 1,000 ML IV PRN (15:46)
--- NOTE | 2018-02-22 18:23 | PDOC PROGRESS REPORT ---
Subjective Progress Note for:: 02/22/18 Subjective:: Patient reported concern about constipation. No nausea or vomiting. No abdominal pain. No chest pain or difficulty with breathing. She remain on IV Zosyn. Reason For Visit: SEPSIS/CHRONIC CHF/CHRONIC KIDNEY DISEASE Physical Exam Vital Signs: Temp Pulse Resp BP Pulse Ox 98.0 F 64 18 156/82 H 96 02/22/18 07:41 02/22/18 07:41 02/22/18 07:41 02/22/18 03:10 02/22/18 07:41 Intake & Output 02/21/18 02/22/18 02/23/18 06:59 06:59 06:59 Intake Total 2390 3422 Output Total 4400 3700 Balance -2009 Weight 134 kg 133.4 kg General appearance: PRESENT: morbidly obese Head exam: PRESENT: atraumatic, normocephalic Eye exam: PRESENT: conjunctiva pink, EOMI, PERRLA. ABSENT: scleral icterus Ear exam: PRESENT: normal external ear exam Mouth exam: PRESENT: moist Respiratory exam: PRESENT: clear to auscultation tarsha, decreased breath sounds - at lung bases Cardiovascular exam: PRESENT: RRR. ABSENT: diastolic murmur, rubs, systolic murmur Vascular exam: PRESENT: normal capillary refill. ABSENT: pallor GI/Abdominal exam: PRESENT: hernia - right anterior abdominal wall, normal bowel sounds, soft. ABSENT: distended, guarding, mass, organolmegaly, rebound, tenderness Extremities exam: ABSENT: pedal edema Musculoskeletal exam: PRESENT: normal inspection Neurological exam: PRESENT: alert, awake, oriented to person, oriented to place , oriented to time, oriented to situation, CN II-XII grossly intact. ABSENT: motor sensory deficit Psychiatric exam: PRESENT: appropriate affect, normal mood. ABSENT: homicidal ideation, suicidal ideation Skin exam: PRESENT: dry, warm Results Laboratory Results: 02/21/18 04:20 02/21/18 04:20 02/18/18 02/18/18 02/18/18 03:07 03:07 08:32 Creatine Kinase 127 117 CK-MB (CK-2) 3.53 Troponin I < 0.012 02/18/18 02/18/18 02/18/18 08:32 15:40 15:40 Creatine Kinase 96 CK-MB (CK-2) 3.60 2.64 Troponin I < 0.012 < 0.012 Impressions: Abdomen/Pelvis CT 02/17/18 22:30 IMPRESSION: No acute intrathoracic finding. TECHNICAL DOCUMENTATION: Quality ID # 436: Final reports with documentation of one or more dose reduction techniques (e.g., Automated exposure control, adjustment of the mA and/or kV according to patient size, use of iterative reconstruction technique) 2010 for[[employer]]- All Rights Reserved EXAM DESCRIPTION: CT ABDOMEN AND PELVIS WITHOUT IV CONTRAST COMPLETED DATE/TME: 02/17/2018 22:30 CLINICAL HISTORY: 57 years, Female, sepsis COMPARISON: None. TECHNIQUE: Contiguous axial images of the abdomen and pelvis were obtained without IV contrast followed by reconstruction images. This exam was performed according to our departmental dose-optimization program, which includes automated exposure control, adjustment of the mA and/or kV according to patient size and/or use of iterative reconstruction technique. Images stored on PACS. All CT scanners at this facility use dose modulation, iterative reconstruction, and/or weight based dosing when appropriate to reduce radiation dose to as low as reasonably achievable (ALARA). [facility]: Dose Right [facility]: CareDose [facility]: Dose Right [facility]: Teradose 4D [facility]: [employer] LIMITATIONS: None. FINDINGS: Liver: Within normal limits Gallbladder/Bile ducts: Cholecystectomy clips are seen in gallbladder fossa. No intra or extrahepatic duct dilatation. Spleen: Within normal limits Pancreas: Within normal limits Adrenal glands: Within normal limits Kidneys/Bladder: Again noted, absent right kidney. No left renal stones or hydronephrosis. Contracted bladder without significant findings. GI tract: Stable appearance of a large right abdominal wall hernia with herniated cecum, portions of the ascending colon and multiple small bowel loops. Abdominal wall defect measures 9.2 cm AP x 8.6 cm CC. The most lateral aspect of the hernia sac is outside field of view. The visualized portions of the hernia sac show no evidence of free fluid or bowel dilatation. No evidence of obstruction or active inflammatory process. No intra-abdominal collection. Uterus/adnexa: Anteverted uterus. No suspicious adnexal lesion. Vascular structures: Scattered vascular calcifications Free fluid: No free fluid. Lymph nodes: No radiographically enlarged lymph nodes Soft tissues: Large right abdominal wall hernia as described above. Incidentally noted left obturator externus intramuscular lipoma measuring 3 cm. Bones: No acute osseous finding. Mild degenerative changes at L3-L4. IMPRESSION: 1. No acute intra-abdominal finding 2. Stable large right abdominal wall hernia as described. 3. Absent right kidney TECHNICAL DOCUMENTATION: Quality ID # 436: Final reports with documentation of one or more dose reduction techniques (e.g., Automated exposure control, adjustment of the mA and/or kV according to patient size, use of iterative reconstruction technique) 2010 for[[employer]]- All Rights Reserved Chest CT 02/17/18 22:30 IMPRESSION: No acute intrathoracic finding. TECHNICAL DOCUMENTATION: Quality ID # 436: Final reports with documentation of one or more dose reduction techniques (e.g., Automated exposure control, adjustment of the mA and/or kV according to patient size, use of iterative reconstruction technique) 2010 for[MD]- All Rights Reserved EXAM DESCRIPTION: CT ABDOMEN AND PELVIS WITHOUT IV CONTRAST COMPLETED DATE/TME: 02/17/2018 22:30 CLINICAL HISTORY: 57 years, Female, sepsis COMPARISON: None. TECHNIQUE: Contiguous axial images of the abdomen and pelvis were obtained without IV contrast followed by reconstruction images. This exam was performed according to our departmental dose-optimization program, which includes automated exposure control, adjustment of the mA and/or kV according to patient size and/or use of iterative reconstruction technique. Images stored on PACS. All CT scanners at this facility use dose modulation, iterative reconstruction, and/or weight based dosing when appropriate to reduce radiation dose to as low as reasonably achievable (ALARA). [facility]: Dose Right [facility]: CareDose [facility]: Dose Right [facility]: Teradose 4D [facility]: [employer] LIMITATIONS: None. FINDINGS: Liver: Within normal limits Gallbladder/Bile ducts: Cholecystectomy clips are seen in gallbladder fossa. No intra or extrahepatic duct dilatation. Spleen: Within normal limits Pancreas: Within normal limits Adrenal glands: Within normal limits Kidneys/Bladder: Again noted, absent right kidney. No left renal stones or hydronephrosis. Contracted bladder without significant findings. GI tract: Stable appearance of a large right abdominal wall hernia with herniated cecum, portions of the ascending colon and multiple small bowel loops. Abdominal wall defect measures 9.2 cm AP x 8.6 cm CC. The most lateral aspect of the hernia sac is outside field of view. The visualized portions of the hernia sac show no evidence of free fluid or bowel dilatation. No evidence of obstruction or active inflammatory process. No intra-abdominal collection. Uterus/adnexa: Anteverted uterus. No suspicious adnexal lesion. Vascular structures: Scattered vascular calcifications Free fluid: No free fluid. Lymph nodes: No radiographically enlarged lymph nodes Soft tissues: Large right abdominal wall hernia as described above. Incidentally noted left obturator externus intramuscular lipoma measuring 3 cm. Bones: No acute osseous finding. Mild degenerative changes at L3-L4. IMPRESSION: 1. No acute intra-abdominal finding 2. Stable large right abdominal wall hernia as described. 3. Absent right kidney TECHNICAL DOCUMENTATION: Quality ID # 436: Final reports with documentation of one or more dose reduction techniques (e.g., Automated exposure control, adjustment of the mA and/or kV according to patient size, use of iterative reconstruction technique) 2010 for[MD]- All Rights Reserved Chest X-Ray 02/21/18 06:00 IMPRESSION: STABLE APPEARANCE OF THE CHEST. SUPPORT DEVICES UNCHANGED. Assessment & Plan - Diagnosis (1) Chronic kidney disease (CKD) stage G4/A1, severely decreased glomerular filtration rate (GFR) between 15-29 mL/min/1.73 square meter and albuminuria creatinine ratio less than 30 mg/g Is this a current diagnosis for this admission?: Yes (2) Hyperkalemia Is this a current diagnosis for this admission?: Yes (3) Hypotension Qualifiers: Hypotension type: unspecified hypotension type Qualified Code(s): I95.9 - Hypotension, unspecified Is this a current diagnosis for this admission?: Yes (4) Obstructive sleep apnea of adult Is this a current diagnosis for this admission?: Yes (5) Respiratory failure Qualifiers: Chronicity: acute on chronic Is this a current diagnosis for this admission?: Yes (6) Sepsis Qualifiers: Sepsis type: sepsis due to unspecified organism Qualified Code(s): A41.9 - Sepsis, unspecified organism Is this a current diagnosis for this admission?: Yes (7) Diabetes mellitus type 2 in obese Is this a current diagnosis for this admission?: Yes (8) Anemia in chronic kidney disease (CKD) Qualifiers: Chronic kidney disease stage: stage 4 (severe) Qualified Code(s): N18.4 - Chronic kidney disease, stage 4 (severe) Is this a current diagnosis for this admission?: Yes (9) Mixed anxiety and depressive disorder Is this a current diagnosis for this admission?: Yes (10) Morbid obesity with BMI of 45.0-49.9, adult Is this a current diagnosis for this admission?: Yes - Time Time Spent with patient: 25-34 minutes Medications reviewed and adjusted accordingly: Yes Anticipated discharge: Home with Homehealth Within: Other - Inpatient Certification Based on my medical assessment, after consideration of the patient's comorbidities, presenting symptoms, or acuity I expect that the services needed warrant INPATIENT care.: Yes I certify that my determination is in accordance with my understanding of Medicare's requirements for reasonable and necessary INPATIENT services [42 CFR 412.3e].: Yes Medical Necessity: Need Close Monitoring Due to Risk of Patient Decompensation, Need For IV Fluids, Need For Continuous Telemetry Monitoring, Need for IV Antibiotics, Risk of Complication if Not Cared For in Hospital Post Hospital Care: D/C Front End Alignment Specialist Documentation - Plan Summary Plan Summary: Start on Levemir insulin 40 units subcut q12 hours. Hold Tresiba Insulin off formulary at this facility. Increase Lisinopril to 40 mg po daily. Start on Colace 200 mg po qhs. Maintain on all other current medication management.
--- NOTE | 2018-02-22 19:19 | PDOC PROGRESS REPORT ---
Subjective Progress Note for:: 02/22/18 Subjective:: Patient seems to be doing better with gradual improvement. Patient feels much more energetic today. Her fatigue and tiredness has improved. Patient however did complain of sharp pointed chest pain at the lower sternal area. Nonexertional and lasted less than a minute. Patient is maintaining sinus rhythm. Review of systems: Rest review of systems negative. Medications: Medications have been reviewed. Reason For Visit: SEPSIS/CHRONIC CHF/CHRONIC KIDNEY DISEASE Physical Exam Vital Signs: Temp Pulse Resp BP Pulse Ox 98.0 F 60 18 166/83 H 98 02/22/18 15:28 02/22/18 15:28 02/22/18 15:28 02/22/18 15:28 02/22/18 15:28 Intake & Output 02/21/18 02/22/18 02/23/18 06:59 06:59 06:59 Intake Total 2390 3422 2702 Output Total 4400 3700 1600 Balance -2009 1102 Weight 134 kg 133.4 kg Exam: GENERAL: well-nourished and in no acute distress. Alert and oriented x3 HEAD: Atraumatic, normocephalic. EYES: Pupils equal round and reactive to light, extraocular movements intact, sclera anicteric, conjunctiva are normal. ENT: TMs normal, nares patent, oropharynx clear without exudates. Moist mucous membranes. No oral ulcerations or bleeding gums noted NECK: supple without lymphadenopathy. Trachea is central. No cervical or axillary lymphadenopathy noted. Carotids are 2+, JVD WNL LUNGS: Respiration seems nonlabored, no significant accessory muscle action noted. Breath sounds clear to auscultation bilaterally and equal noted. No wheezes rales or rhonchi noted. No significant dullness noted on percussion. CHEST: Palpation of the chest wall shows no significant chest wall tenderness. 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 ABDOMEN: Soft, no significant tenderness appreciated, normoactive bowel sounds. No guarding, no rebound. No rigidity noted . No masses appreciated. EXTREMITIES: Pedal pulses are 1-2+, no calf tenderness noted. No clubbing or cyanosis. 1+ pedal edema noted NEUROLOGICAL: Focused neurological exam showed no significant neurologic deficit. Normal speech, no focal weakness appreciated. PSYCH: Normal mood, normal affect. Judgment and insight within normal limits. SKIN: No significant ecchymosis, skin is noted to be warm. MUSCULOSKELETAL EXAM: No significant acute joint swelling noted. Tip of left great toe missing probably amputated. Results Laboratory Results: 02/21/18 04:20 02/21/18 04:20 02/18/18 02/18/18 02/18/18 03:07 03:07 08:32 Creatine Kinase 127 117 CK-MB (CK-2) 3.53 Troponin I < 0.012 02/18/18 02/18/18 02/18/18 08:32 15:40 15:40 Creatine Kinase 96 CK-MB (CK-2) 3.60 2.64 Troponin I < 0.012 < 0.012 EKG Comments: Telemetry shows sinus rhythm without any sustained tachycardia or bradycardia. Impressions: Abdomen/Pelvis CT 02/17/18 22:30 IMPRESSION: No acute intrathoracic finding. TECHNICAL DOCUMENTATION: Quality ID # [id number]: Final reports with documentation of one or more dose reduction techniques (e.g., Automated exposure control, adjustment of the mA and/or kV according to patient size, use of iterative reconstruction technique) 2010 [employer]- All Rights Reserved EXAM DESCRIPTION: CT ABDOMEN AND PELVIS WITHOUT IV CONTRAST COMPLETED DATE/TME: 02/17/2018 22:30 CLINICAL HISTORY: 57 years, Female, sepsis COMPARISON: None. TECHNIQUE: Contiguous axial images of the abdomen and pelvis were obtained without IV contrast followed by reconstruction images. This exam was performed according to our departmental dose-optimization program, which includes automated exposure control, adjustment of the mA and/or kV according to patient size and/or use of iterative reconstruction technique. Images stored on PACS. All CT scanners at this facility use dose modulation, iterative reconstruction, and/or weight based dosing when appropriate to reduce radiation dose to as low as reasonably achievable (ALARA). [facility]: Dose Right [facility]: CareDose [facility]: Dose Right [facility]: Teradose 4D [facility]: [employer]Radius LIMITATIONS: None. FINDINGS: Liver: Within normal limits Gallbladder/Bile ducts: Cholecystectomy clips are seen in gallbladder fossa. No intra or extrahepatic duct dilatation. Spleen: Within normal limits Pancreas: Within normal limits Adrenal glands: Within normal limits Kidneys/Bladder: Again noted, absent right kidney. No left renal stones or hydronephrosis. Contracted bladder without significant findings. GI tract: Stable appearance of a large right abdominal wall hernia with herniated cecum, portions of the ascending colon and multiple small bowel loops. Abdominal wall defect measures 9.2 cm AP x 8.6 cm CC. The most lateral aspect of the hernia sac is outside field of view. The visualized portions of the hernia sac show no evidence of free fluid or bowel dilatation. No evidence of obstruction or active inflammatory process. No intra-abdominal collection. Uterus/adnexa: Anteverted uterus. No suspicious adnexal lesion. Vascular structures: Scattered vascular calcifications Free fluid: No free fluid. Lymph nodes: No radiographically enlarged lymph nodes Soft tissues: Large right abdominal wall hernia as described above. Incidentally noted left obturator externus intramuscular lipoma measuring 3 cm. Bones: No acute osseous finding. Mild degenerative changes at L3-L4. IMPRESSION: 1. No acute intra-abdominal finding 2. Stable large right abdominal wall hernia as described. 3. Absent right kidney TECHNICAL DOCUMENTATION: Quality ID # [id number]: Final reports with documentation of one or more dose reduction techniques (e.g., Automated exposure control, adjustment of the mA and/or kV according to patient size, use of iterative reconstruction technique) 2010 [employer]- All Rights Reserved Chest CT 02/17/18 22:30 IMPRESSION: No acute intrathoracic finding. TECHNICAL DOCUMENTATION: Quality ID # [id number]: Final reports with documentation of one or more dose reduction techniques (e.g., Automated exposure control, adjustment of the mA and/or kV according to patient size, use of iterative reconstruction technique) 2010 [employer]- All Rights Reserved EXAM DESCRIPTION: CT ABDOMEN AND PELVIS WITHOUT IV CONTRAST COMPLETED DATE/TME: 02/17/2018 22:30 CLINICAL HISTORY: 57 years, Female, sepsis COMPARISON: None. TECHNIQUE: Contiguous axial images of the abdomen and pelvis were obtained without IV contrast followed by reconstruction images. This exam was performed according to our departmental dose-optimization program, which includes automated exposure control, adjustment of the mA and/or kV according to patient size and/or use of iterative reconstruction technique. Images stored on PACS. All CT scanners at this facility use dose modulation, iterative reconstruction, and/or weight based dosing when appropriate to reduce radiation dose to as low as reasonably achievable (ALARA). [facility]: Dose Right [facility]: CareDose [facility]: Dose Right [facility]: Teradose 4D [facility]: [employer] LIMITATIONS: None. FINDINGS: Liver: Within normal limits Gallbladder/Bile ducts: Cholecystectomy clips are seen in gallbladder fossa. No intra or extrahepatic duct dilatation. Spleen: Within normal limits Pancreas: Within normal limits Adrenal glands: Within normal limits Kidneys/Bladder: Again noted, absent right kidney. No left renal stones or hydronephrosis. Contracted bladder without significant findings. GI tract: Stable appearance of a large right abdominal wall hernia with herniated cecum, portions of the ascending colon and multiple small bowel loops. Abdominal wall defect measures 9.2 cm AP x 8.6 cm CC. The most lateral aspect of the hernia sac is outside field of view. The visualized portions of the hernia sac show no evidence of free fluid or bowel dilatation. No evidence of obstruction or active inflammatory process. No intra-abdominal collection. Uterus/adnexa: Anteverted uterus. No suspicious adnexal lesion. Vascular structures: Scattered vascular calcifications Free fluid: No free fluid. Lymph nodes: No radiographically enlarged lymph nodes Soft tissues: Large right abdominal wall hernia as described above. Incidentally noted left obturator externus intramuscular lipoma measuring 3 cm. Bones: No acute osseous finding. Mild degenerative changes at L3-L4. IMPRESSION: 1. No acute intra-abdominal finding 2. Stable large right abdominal wall hernia as described. 3. Absent right kidney TECHNICAL DOCUMENTATION: Quality ID # [id number]: Final reports with documentation of one or more dose reduction techniques (e.g., Automated exposure control, adjustment of the mA and/or kV according to patient size, use of iterative reconstruction technique) 2010 [employer]- All Rights Reserved Chest X-Ray 02/21/18 06:00 IMPRESSION: STABLE APPEARANCE OF THE CHEST. SUPPORT DEVICES UNCHANGED. Assessment & Plan - Diagnosis (1) Hypotension Qualifiers: Hypotension type: unspecified hypotension type Qualified Code(s): I95.9 - Hypotension, unspecified Is this a current diagnosis for this admission?: Yes (2) Hyperkalemia Is this a current diagnosis for this admission?: Yes (3) Sepsis Qualifiers: Sepsis type: sepsis due to unspecified organism Qualified Code(s): A41.9 - Sepsis, unspecified organism Is this a current diagnosis for this admission?: Yes (4) Obstructive sleep apnea of adult Is this a current diagnosis for this admission?: Yes (5) Chronic kidney disease (CKD) stage G4/A1, severely decreased glomerular filtration rate (GFR) between 15-29 mL/min/1.73 square meter and albuminuria creatinine ratio less than 30 mg/g Is this a current diagnosis for this admission?: Yes (6) Morbid obesity with BMI of 45.0-49.9, adult Is this a current diagnosis for this admission?: Yes (7) Diabetes Qualifiers: Diabetes mellitus type: type 2 Diabetes mellitus complication status: without complication Is this a current diagnosis for this admission?: Yes (8) Probable sepsis Is this a current diagnosis for this admission?: Yes - Notes Notes: Chest pain: Ellinger to be atypical and noncardiac. Patient was reassured but was informed to report should it recur. Hypotension: Improved and resolved. Hyperkalemia: Resolved. Most likely related to sepsis. Advanced chronic kidney disease: Patient has single functioning kidney. She had a nephrectomy on one side. Patient claims that she was told she had CKD stage III. Renal functions have improved. Sleep apnea syndrome. Recommend CPAP therapy, at night and also while taking naps. Patient was noted to be severely acidotic and with CO2 retention. Patient has history of CPAP use and also with in-line oxygen use. Director Of Casino are on board. Diabetes: Recommend good control of diabetes. Incarcerated hernia: Surgeon saw the patient. Needs to be fixed at some time when patient general condition improved. Overall prognosis is guarded at this time. Overall has shown gradual improvement. Patient doing much improved. - Time Time with patient: 15-25 minutes - CODE STATUS was discussed, patient remains full code. Surrogate decision-maker unchanged. Multiple medical problems were addressed. More than 50% of the time spent coordinating care, discussing management plans with involved caregivers. Management plans discussed with involved personnels. Medical decision making was of moderate to high complexity , patient's has multiple comorbidities. Medications reviewed and adjusted accordingly: Yes
[2018-02-22] MEDS ORDERED: LISINOPRIL 10 MG TABLET PO ONE (19:30)
[2018-02-22] MEDS: DOCUSATE SODIUM 100 MG CAPSULE PO SCH (22:00)
[2018-02-22] MEDS: FAMOTIDINE 20 MG TABLET PO SCH (22:00)
[2018-02-23] MEDS: IMIPENEM/CILASTATIN SODIUM 500 MG in NORMAL SALINE 100 ML IV SCH ×4 (02:29→20:27)
[2018-02-23] MEDS: LANSOPRAZOLE 30 MG TAB.RAP.DR PO SCH (05:22)
[2018-02-23] MEDS: GABAPENTIN 300 MG CAPSULE PO SCH ×3 (05:22→21:41)
[2018-02-23] MEDS: INSULIN LISPRO 100 UNIT/ML 3 ML VIAL SUBCUT PRN ×4 (08:40→21:39)
[2018-02-23] MEDS: INSULIN LISPRO 100 UNIT/ML 3 ML VIAL SUBCUT SCH ×3 (08:41→16:59)
[2018-02-23] MEDS: FLUOXETINE HCL 20 MG CAPSULE PO SCH (08:48)
[2018-02-23] MEDS: FUROSEMIDE 40 MG TABLET PO SCH (09:27)
[2018-02-23] MEDS: LISINOPRIL 10 MG TABLET PO SCH (09:27)
[2018-02-23] MEDS: METOPROLOL SUCCINATE 50 MG TAB.SR.24H PO SCH (09:27)
[2018-02-23] MEDS: FERROUS SULFATE 325 MG TABLET PO SCH ×2 (09:28→17:01)
[2018-02-23] MEDS: ISOSORBIDE MONONITRATE 30 MG TAB.ER.24H PO SCH (09:28)
[2018-02-23] MEDS: POLYETHYLENE GLYCOL 3350 POWDER 17 GM/1 PACKET PO SCH (09:28)
[2018-02-23] MEDS: BUPROPION HCL 75 MG TABLET PO SCH ×2 (09:28→21:40)
[2018-02-23] MEDS: ASPIRIN 325 MG TABLET, ENT COATED PO SCH (09:28)
[2018-02-23] MEDS: ENOXAPARIN SODIUM INJ 40 MG/0.4 ML DISP.SYRIN SUBCUT SCH (09:29)
[2018-02-23] MEDS: INSULIN DETEMIR 100 UNIT/ML 3 ML PEN SUBCUT SCH ×2 (09:29→21:42)
[2018-02-23] MEDS: RANOLAZINE 500 MG TAB.SR.12H PO SCH ×2 (09:30→21:42)
[2018-02-23] MEDS: LIDOCAINE 5% (700 MG) TRANSDERMAL ADH..PATCH TP SCH (09:30)
[2018-02-23 14:21] LABS: HEMATOCRIT 30.1 % (36.0-47.0); HEMOGLOBIN 9.8 g/dL (12.0-15.5); MEAN CORPUSCULAR HEMOGLOBIN 27.6 pg (27.0-33.4); MEAN CORPUSCULAR HGB CONC 32.5 g/dL (32.0-36.0); MEAN CORPUSCULAR VOLUME 85 fl (80-97); PLATELET COUNT 341 10^3/uL (150-450); RED BLOOD COUNT 3.55 10^6/uL (3.72-5.28); WHITE BLOOD COUNT 12.1 10^3/uL (4.0-10.5)
[2018-02-23 14:37] LABS: ANION GAP 14 (5-19); BLOOD UREA NITROGEN 28 mg/dL (7-20); CALCIUM 9.2 mg/dL (8.4-10.2); CARBON DIOXIDE 24 mmol/L (22-30); CHLORIDE 103 mmol/L (98-107); GLUCOSE 222 mg/dL (75-110); POTASSIUM 4.2 mmol/L (3.6-5.0); SODIUM 140.9 mmol/L (137-145)
[2018-02-23] MEDS: NORMAL SALINE 1000 ML 1,000 ML IV PRN (15:03)
--- NOTE | 2018-02-23 18:03 | PDOC PROGRESS REPORT ---
Subjective Progress Note for:: 02/23/18 Subjective:: Patient reported satisfactory reponse to her bowel movement regimen on Colace and Miralax. No nausea, vomiting, or abdominal pain. No chest pain or difficulty with breathing. She remain on IV Zosyn. Blood culture is no growth x 5 days. Reason For Visit: SEPSIS/CHRONIC CHF/CHRONIC KIDNEY DISEASE Physical Exam Vital Signs: Temp Pulse Resp BP Pulse Ox 98.3 F 57 L 17 161/84 H 97 02/23/18 15:18 02/23/18 15:18 02/23/18 15:18 02/23/18 15:18 02/23/18 15:18 Intake & Output 02/22/18 02/23/18 02/24/18 06:59 06:59 06:59 Intake Total 3422 4052 1691 Output Total 3700 2900 800 Balance -278 1152 891 Weight 133.4 kg 131.4 kg Physical Exam: General appearance: PRESENT: morbidly obese Head exam: PRESENT: atraumatic, normocephalic Eye exam: PRESENT: conjunctiva pink, EOMI, PERRLA. ABSENT: scleral icterus Ear exam: PRESENT: normal external ear exam Mouth exam: PRESENT: moist Respiratory exam: PRESENT: clear to auscultation tarsha, decreased breath sounds - at lung bases Cardiovascular exam: PRESENT: RRR. ABSENT: diastolic murmur, rubs, systolic murmur GI/Abdominal exam: PRESENT: hernia - right anterior abdominal wall, normal bowel sounds, soft. ABSENT: distended, guarding, mass, organolmegaly, rebound, tenderness Extremities exam: ABSENT: pedal edema Musculoskeletal exam: PRESENT: normal inspection Neurological exam: PRESENT: alert, awake, oriented to person, oriented to place , oriented to time, oriented to situation, CN II-XII grossly intact. ABSENT: motor sensory deficit Psychiatric exam: PRESENT: appropriate affect, normal mood. ABSENT: homicidal ideation, suicidal ideation Skin exam: PRESENT: dry, warm Results Laboratory Results: 02/23/18 13:04 02/23/18 13:04 02/23/18 02/23/18 13:04 13:04 WBC 12.1 H RBC 3.55 L Hgb 9.8 L Hct 30.1 L MCV 85 MCH 27.6 MCHC 32.5 RDW 15.0 H Plt Count 341 Sodium 140.9 Potassium 4.2 Chloride 103 Carbon Dioxide 24 Anion Gap 14 BUN 28 H Creatinine 1.65 H Est GFR ( Amer) 39 L Est GFR (Non-Af Amer) 32 L Glucose 222 H Calcium 9.2 02/18/18 03:00 Blood Blood Culture - Final NO GROWTH IN 5 DAYS 02/18/18 02/18/18 02/18/18 03:07 03:07 08:32 Creatine Kinase 127 117 CK-MB (CK-2) 3.53 Troponin I < 0.012 02/18/18 02/18/18 02/18/18 08:32 15:40 15:40 Creatine Kinase 96 CK-MB (CK-2) 3.60 2.64 Troponin I < 0.012 < 0.012 Impressions: Abdomen/Pelvis CT 02/17/18 22:30 IMPRESSION: No acute intrathoracic finding. TECHNICAL DOCUMENTATION: Quality ID # 436: Final reports with documentation of one or more dose reduction techniques (e.g., Automated exposure control, adjustment of the mA and/or kV according to patient size, use of iterative reconstruction technique) 2010 [employer]- All Rights Reserved EXAM DESCRIPTION: CT ABDOMEN AND PELVIS WITHOUT IV CONTRAST COMPLETED DATE/TME: 02/17/2018 22:30 CLINICAL HISTORY: 57 years, Female, sepsis COMPARISON: None. TECHNIQUE: Contiguous axial images of the abdomen and pelvis were obtained without IV contrast followed by reconstruction images. This exam was performed according to our departmental dose-optimization program, which includes automated exposure control, adjustment of the mA and/or kV according to patient size and/or use of iterative reconstruction technique. Images stored on PACS. All CT scanners at this facility use dose modulation, iterative reconstruction, and/or weight based dosing when appropriate to reduce radiation dose to as low as reasonably achievable (ALARA). [facility]: Dose Right [facility]: CareDose [facility]: Dose Right [facility]: Teradose 4D [facility]: [employer] LIMITATIONS: None. FINDINGS: Liver: Within normal limits Gallbladder/Bile ducts: Cholecystectomy clips are seen in gallbladder fossa. No intra or extrahepatic duct dilatation. Spleen: Within normal limits Pancreas: Within normal limits Adrenal glands: Within normal limits Kidneys/Bladder: Again noted, absent right kidney. No left renal stones or hydronephrosis. Contracted bladder without significant findings. GI tract: Stable appearance of a large right abdominal wall hernia with herniated cecum, portions of the ascending colon and multiple small bowel loops. Abdominal wall defect measures 9.2 cm AP x 8.6 cm CC. The most lateral aspect of the hernia sac is outside field of view. The visualized portions of the hernia sac show no evidence of free fluid or bowel dilatation. No evidence of obstruction or active inflammatory process. No intra-abdominal collection. Uterus/adnexa: Anteverted uterus. No suspicious adnexal lesion. Vascular structures: Scattered vascular calcifications Free fluid: No free fluid. Lymph nodes: No radiographically enlarged lymph nodes Soft tissues: Large right abdominal wall hernia as described above. Incidentally noted left obturator externus intramuscular lipoma measuring 3 cm. Bones: No acute osseous finding. Mild degenerative changes at L3-L4. IMPRESSION: 1. No acute intra-abdominal finding 2. Stable large right abdominal wall hernia as described. 3. Absent right kidney TECHNICAL DOCUMENTATION: Quality ID # [id number]: Final reports with documentation of one or more dose reduction techniques (e.g., Automated exposure control, adjustment of the mA and/or kV according to patient size, use of iterative reconstruction technique) 2010 [employer]- All Rights Reserved Chest CT 02/17/18 22:30 IMPRESSION: No acute intrathoracic finding. TECHNICAL DOCUMENTATION: Quality ID # [id number]: Final reports with documentation of one or more dose reduction techniques (e.g., Automated exposure control, adjustment of the mA and/or kV according to patient size, use of iterative reconstruction technique) 2010 [employer]- All Rights Reserved EXAM DESCRIPTION: CT ABDOMEN AND PELVIS WITHOUT IV CONTRAST COMPLETED DATE/TME: 02/17/2018 22:30 CLINICAL HISTORY: 57 years, Female, sepsis COMPARISON: None. TECHNIQUE: Contiguous axial images of the abdomen and pelvis were obtained without IV contrast followed by reconstruction images. This exam was performed according to our departmental dose-optimization program, which includes automated exposure control, adjustment of the mA and/or kV according to patient size and/or use of iterative reconstruction technique. Images stored on PACS. All CT scanners at this facility use dose modulation, iterative reconstruction, and/or weight based dosing when appropriate to reduce radiation dose to as low as reasonably achievable (ALARA). [facility]: Dose Right [facility]: CareDose [facility]: Dose Right [facility]: Teradose 4D [facility]: [employer] LIMITATIONS: None. FINDINGS: Liver: Within normal limits Gallbladder/Bile ducts: Cholecystectomy clips are seen in gallbladder fossa. No intra or extrahepatic duct dilatation. Spleen: Within normal limits Pancreas: Within normal limits Adrenal glands: Within normal limits Kidneys/Bladder: Again noted, absent right kidney. No left renal stones or hydronephrosis. Contracted bladder without significant findings. GI tract: Stable appearance of a large right abdominal wall hernia with herniated cecum, portions of the ascending colon and multiple small bowel loops. Abdominal wall defect measures 9.2 cm AP x 8.6 cm CC. The most lateral aspect of the hernia sac is outside field of view. The visualized portions of the hernia sac show no evidence of free fluid or bowel dilatation. No evidence of obstruction or active inflammatory process. No intra-abdominal collection. Uterus/adnexa: Anteverted uterus. No suspicious adnexal lesion. Vascular structures: Scattered vascular calcifications Free fluid: No free fluid. Lymph nodes: No radiographically enlarged lymph nodes Soft tissues: Large right abdominal wall hernia as described above. Incidentally noted left obturator externus intramuscular lipoma measuring 3 cm. Bones: No acute osseous finding. Mild degenerative changes at L3-L4. IMPRESSION: 1. No acute intra-abdominal finding 2. Stable large right abdominal wall hernia as described. 3. Absent right kidney TECHNICAL DOCUMENTATION: Quality ID # [id number]: Final reports with documentation of one or more dose reduction techniques (e.g., Automated exposure control, adjustment of the mA and/or kV according to patient size, use of iterative reconstruction technique) 2010 [employer]- All Rights Reserved Chest X-Ray 02/21/18 06:00 IMPRESSION: STABLE APPEARANCE OF THE CHEST. SUPPORT DEVICES UNCHANGED. Assessment & Plan - Diagnosis (1) Chronic kidney disease (CKD) stage G4/A1, severely decreased glomerular filtration rate (GFR) between 15-29 mL/min/1.73 square meter and albuminuria creatinine ratio less than 30 mg/g Is this a current diagnosis for this admission?: Yes (2) Hyperkalemia Is this a current diagnosis for this admission?: Yes (3) Hypotension Qualifiers: Hypotension type: unspecified hypotension type Qualified Code(s): I95.9 - Hypotension, unspecified Is this a current diagnosis for this admission?: Yes (4) Obstructive sleep apnea of adult Is this a current diagnosis for this admission?: Yes (5) Respiratory failure Qualifiers: Chronicity: acute on chronic Is this a current diagnosis for this admission?: Yes (6) Sepsis Qualifiers: Sepsis type: sepsis due to unspecified organism Qualified Code(s): A41.9 - Sepsis, unspecified organism Is this a current diagnosis for this admission?: Yes (7) Diabetes mellitus type 2 in obese Is this a current diagnosis for this admission?: Yes (8) Anemia in chronic kidney disease (CKD) Qualifiers: Chronic kidney disease stage: stage 4 (severe) Qualified Code(s): N18.4 - Chronic kidney disease, stage 4 (severe) Is this a current diagnosis for this admission?: Yes (9) Mixed anxiety and depressive disorder Is this a current diagnosis for this admission?: Yes (10) Morbid obesity with BMI of 45.0-49.9, adult Is this a current diagnosis for this admission?: Yes - Time Time Spent with patient: 25-34 minutes Medications reviewed and adjusted accordingly: Yes Anticipated discharge: Home with Homehealth Within: within 24 hours - Inpatient Certification Based on my medical assessment, after consideration of the patient's comorbidities, presenting symptoms, or acuity I expect that the services needed warrant INPATIENT care.: Yes I certify that my determination is in accordance with my understanding of Medicare's requirements for reasonable and necessary INPATIENT services [42 CFR 412.3e].: Yes Medical Necessity: Need Close Monitoring Due to Risk of Patient Decompensation, Need For IV Fluids, Need For Continuous Telemetry Monitoring, Need for IV Antibiotics, Risk of Complication if Not Cared For in Hospital Post 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 Patient is agreeable with discharge home tomorrow.
--- NOTE | 2018-02-23 19:15 | PDOC PROGRESS REPORT ---
Subjective Progress Note for:: 02/23/18 Subjective:: Patient seems to be doing better so far has remarkable improvement been noted. Patient feels much more energetic today. Her fatigue and tiredness has improved. Chest pain she was having has resolved.. Patient is maintaining sinus rhythm. Review of systems: Rest review of systems negative. Medications: Medications have been reviewed. Reason For Visit: SEPSIS/CHRONIC CHF/CHRONIC KIDNEY DISEASE Physical Exam Vital Signs: Temp Pulse Resp BP Pulse Ox 98.3 F 59 L 17 161/84 H 97 02/23/18 15:18 02/23/18 18:51 02/23/18 15:18 02/23/18 15:18 02/23/18 15:18 Intake & Output 02/22/18 02/23/18 02/24/18 06:59 06:59 06:59 Intake Total 3422 4052 2250 Output Total 3700 2900 1900 Balance -278 1152 350 Weight 133.4 kg 131.4 kg Exam: GENERAL: well-nourished and in no acute distress. Alert and oriented x3 HEAD: Atraumatic, normocephalic. EYES: Pupils equal round and reactive to light, extraocular movements intact, sclera anicteric, conjunctiva are normal. ENT: TMs normal, nares patent, oropharynx clear without exudates. Moist mucous membranes. No oral ulcerations or bleeding gums noted NECK: supple without lymphadenopathy. Trachea is central. No cervical or axillary lymphadenopathy noted. Carotids are 2+, JVD WNL LUNGS: Respiration seems nonlabored, no significant accessory muscle action noted. Breath sounds clear to auscultation bilaterally and equal noted. No wheezes rales or rhonchi noted. No significant dullness noted on percussion. CHEST: Palpation of the chest wall shows no significant chest wall tenderness. 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 ABDOMEN: Soft, no significant tenderness appreciated, normoactive bowel sounds. No guarding, no rebound. No rigidity noted . No masses appreciated. EXTREMITIES: Pedal pulses are 1-2+, no calf tenderness noted. No clubbing or cyanosis. negative pedal edema noted NEUROLOGICAL: Focused neurological exam showed no significant neurologic deficit. Normal speech, no focal weakness appreciated. PSYCH: Normal mood, normal affect. Judgment and insight within normal limits. SKIN: No significant ecchymosis, skin is noted to be warm. MUSCULOSKELETAL EXAM: No significant acute joint swelling noted. Results Laboratory Results: 02/23/18 13:04 02/23/18 13:04 02/23/18 02/23/18 13:04 13:04 WBC 12.1 H RBC 3.55 L Hgb 9.8 L Hct 30.1 L MCV 85 MCH 27.6 MCHC 32.5 RDW 15.0 H Plt Count 341 Sodium 140.9 Potassium 4.2 Chloride 103 Carbon Dioxide 24 Anion Gap 14 BUN 28 H Creatinine 1.65 H Est GFR ( Amer) 39 L Est GFR (Non-Af Amer) 32 L Glucose 222 H Calcium 9.2 02/18/18 03:00 Blood Blood Culture - Final NO GROWTH IN 5 DAYS 02/18/18 02/18/18 02/18/18 03:07 03:07 08:32 Creatine Kinase 127 117 CK-MB (CK-2) 3.53 Troponin I < 0.012 02/18/18 02/18/18 02/18/18 08:32 15:40 15:40 Creatine Kinase 96 CK-MB (CK-2) 3.60 2.64 Troponin I < 0.012 < 0.012 EKG Comments: Telemetry shows sinus rhythm without any sustained tachycardia or bradycardia Impressions: Abdomen/Pelvis CT 02/17/18 22:30 IMPRESSION: No acute intrathoracic finding. TECHNICAL DOCUMENTATION: Quality ID # [id number]: Final reports with documentation of one or more dose reduction techniques (e.g., Automated exposure control, adjustment of the mA and/or kV according to patient size, use of iterative reconstruction technique) 2010 [employer]- All Rights Reserved EXAM DESCRIPTION: CT ABDOMEN AND PELVIS WITHOUT IV CONTRAST COMPLETED DATE/TME: 02/17/2018 22:30 CLINICAL HISTORY: 57 years, Female, sepsis COMPARISON: None. TECHNIQUE: Contiguous axial images of the abdomen and pelvis were obtained without IV contrast followed by reconstruction images. This exam was performed according to our departmental dose-optimization program, which includes automated exposure control, adjustment of the mA and/or kV according to patient size and/or use of iterative reconstruction technique. Images stored on PACS. All CT scanners at this facility use dose modulation, iterative reconstruction, and/or weight based dosing when appropriate to reduce radiation dose to as low as reasonably achievable (ALARA). [facility]: Dose Right [facility]: CareDose [facility]: Dose Right [facility]: Teradose 4D [facility]: Xspand LIMITATIONS: None. FINDINGS: Liver: Within normal limits Gallbladder/Bile ducts: Cholecystectomy clips are seen in gallbladder fossa. No intra or extrahepatic duct dilatation. Spleen: Within normal limits Pancreas: Within normal limits Adrenal glands: Within normal limits Kidneys/Bladder: Again noted, absent right kidney. No left renal stones or hydronephrosis. Contracted bladder without significant findings. GI tract: Stable appearance of a large right abdominal wall hernia with herniated cecum, portions of the ascending colon and multiple small bowel loops. Abdominal wall defect measures 9.2 cm AP x 8.6 cm CC. The most lateral aspect of the hernia sac is outside field of view. The visualized portions of the hernia sac show no evidence of free fluid or bowel dilatation. No evidence of obstruction or active inflammatory process. No intra-abdominal collection. Uterus/adnexa: Anteverted uterus. No suspicious adnexal lesion. Vascular structures: Scattered vascular calcifications Free fluid: No free fluid. Lymph nodes: No radiographically enlarged lymph nodes Soft tissues: Large right abdominal wall hernia as described above. Incidentally noted left obturator externus intramuscular lipoma measuring 3 cm. Bones: No acute osseous finding. Mild degenerative changes at L3-L4. IMPRESSION: 1. No acute intra-abdominal finding 2. Stable large right abdominal wall hernia as described. 3. Absent right kidney TECHNICAL DOCUMENTATION: Quality ID # [id number]: Final reports with documentation of one or more dose reduction techniques (e.g., Automated exposure control, adjustment of the mA and/or kV according to patient size, use of iterative reconstruction technique) 2010 [employer]- All Rights Reserved Chest CT 02/17/18 22:30 IMPRESSION: No acute intrathoracic finding. TECHNICAL DOCUMENTATION: Quality ID # [id number]: Final reports with documentation of one or more dose reduction techniques (e.g., Automated exposure control, adjustment of the mA and/or kV according to patient size, use of iterative reconstruction technique) 2010 [employer]- All Rights Reserved EXAM DESCRIPTION: CT ABDOMEN AND PELVIS WITHOUT IV CONTRAST COMPLETED DATE/TME: 02/17/2018 22:30 CLINICAL HISTORY: 57 years, Female, sepsis COMPARISON: None. TECHNIQUE: Contiguous axial images of the abdomen and pelvis were obtained without IV contrast followed by reconstruction images. This exam was performed according to our departmental dose-optimization program, which includes automated exposure control, adjustment of the mA and/or kV according to patient size and/or use of iterative reconstruction technique. Images stored on PACS. All CT scanners at this facility use dose modulation, iterative reconstruction, and/or weight based dosing when appropriate to reduce radiation dose to as low as reasonably achievable (ALARA). [facility]: Dose Right [facility]: CareDose [facility]: Dose Right [facility]: Teradose 4D [facility]: Xspand LIMITATIONS: None. FINDINGS: Liver: Within normal limits Gallbladder/Bile ducts: Cholecystectomy clips are seen in gallbladder fossa. No intra or extrahepatic duct dilatation. Spleen: Within normal limits Pancreas: Within normal limits Adrenal glands: Within normal limits Kidneys/Bladder: Again noted, absent right kidney. No left renal stones or hydronephrosis. Contracted bladder without significant findings. GI tract: Stable appearance of a large right abdominal wall hernia with herniated cecum, portions of the ascending colon and multiple small bowel loops. Abdominal wall defect measures 9.2 cm AP x 8.6 cm CC. The most lateral aspect of the hernia sac is outside field of view. The visualized portions of the hernia sac show no evidence of free fluid or bowel dilatation. No evidence of obstruction or active inflammatory process. No intra-abdominal collection. Uterus/adnexa: Anteverted uterus. No suspicious adnexal lesion. Vascular structures: Scattered vascular calcifications Free fluid: No free fluid. Lymph nodes: No radiographically enlarged lymph nodes Soft tissues: Large right abdominal wall hernia as described above. Incidentally noted left obturator externus intramuscular lipoma measuring 3 cm. Bones: No acute osseous finding. Mild degenerative changes at L3-L4. IMPRESSION: 1. No acute intra-abdominal finding 2. Stable large right abdominal wall hernia as described. 3. Absent right kidney TECHNICAL DOCUMENTATION: Quality ID # [id number]: Final reports with documentation of one or more dose reduction techniques (e.g., Automated exposure control, adjustment of the mA and/or kV according to patient size, use of iterative reconstruction technique) 2010 [employer]- All Rights Reserved Chest X-Ray 02/21/18 06:00 IMPRESSION: STABLE APPEARANCE OF THE CHEST. SUPPORT DEVICES UNCHANGED. Assessment & Plan - Diagnosis (1) Hypotension Qualifiers: Hypotension type: unspecified hypotension type Qualified Code(s): I95.9 - Hypotension, unspecified Is this a current diagnosis for this admission?: Yes (2) Hyperkalemia Is this a current diagnosis for this admission?: Yes (3) Sepsis Qualifiers: Sepsis type: sepsis due to unspecified organism Qualified Code(s): A41.9 - Sepsis, unspecified organism Is this a current diagnosis for this admission?: Yes (4) Obstructive sleep apnea of adult Is this a current diagnosis for this admission?: Yes (5) Chronic kidney disease (CKD) stage G4/A1, severely decreased glomerular filtration rate (GFR) between 15-29 mL/min/1.73 square meter and albuminuria creatinine ratio less than 30 mg/g Is this a current diagnosis for this admission?: Yes (6) Morbid obesity with BMI of 45.0-49.9, adult Is this a current diagnosis for this admission?: Yes (7) Diabetes Qualifiers: Diabetes mellitus type: type 2 Diabetes mellitus complication status: without complication Is this a current diagnosis for this admission?: Yes (8) Probable sepsis Is this a current diagnosis for this admission?: Yes - Notes Notes: Chest pain: [place] to be atypical and noncardiac. Resolved. Patient was reassured but was informed to report should it recur. Hypotension: Improved and resolved. Hyperkalemia: Resolved. Most likely related to sepsis. Advanced chronic kidney disease: Patient has single functioning kidney. She had a nephrectomy on one side. Patient claims that she was told she had CKD stage III. Renal functions have improved. Renal function seems baseline. Sleep apnea syndrome. Recommend CPAP therapy, at night and also while taking naps. Patient was noted to be severely acidotic and with CO2 retention. Patient has history of CPAP use and also with in-line oxygen use. Customer Experience Consultant are on board. Diabetes: Recommend good control of diabetes. Sepsis: Currently on IV antibiotics. Patient is telling me that she is likely to be discharged tomorrow. However will leave final decision to payroll bookkeeper. Incarcerated hernia: Surgeon saw the patient. Needs to be fixed at some time when patient general condition improved. Overall prognosis is guarded at this time. Overall has shown gradual improvement. Patient doing much improved. - Time Time with patient: 15-25 minutes - CODE STATUS was discussed, patient remains full code. Surrogate decision-maker unchanged. Multiple medical problems were addressed. More than 50% of the time spent coordinating care, discussing management plans with involved caregivers. Management plans discussed with involved personnels. Medical decision making was of moderate to high complexity , patient's has multiple comorbidities. Medications reviewed and adjusted accordingly: Yes
--- NOTE | 2018-02-23 20:51 | Progress Note ---
Provider Note Provider Note: ID Consult Note Asked to review patient's chart by Pharmacy. Pt not seen or examined. Ms. Mcbride is a 57 year old woman with PMH including morbid obesity, HTN, TREY on home O2 and CPAP, T2DM, CHF with diastolic dysfunction, CAD, CKD, chronic abdominal pain and and ventral abdominal hernia who was admitted on 02/18/18 from ED to ICU. Pt had one day complaint of generalized weakness, nonproductive cough and malaise without fevers, sweats, NVD. On presentation, she was afebrile. BP was low 69/48 mm Hg. In ED abdomen was noted to be mildly tender diffusely, multiple abrasions on skin noninfected appearing, breath sounds normal. WBC initially was 14. She had evidence of ANA on CKD with Cr 3.9 and hyperkalemia K+ 6.5 initially. ABG revealed pH 7.18 with pCO2 61.3. Serum lactic acid was initially around 4. Pt was given fluids, central line placed and Levophed started. Pt required noninvasive ventillatory support. Empiric ertapenem IV was given for suspected sepsis without known source in the ED, and Primaxin was continued instead on admission. Her mixed hypercapneic/hypoxic respiratory failure improved. Her elevated lactic acid level normalized. ANA improved. Pt remained afebrile. Pt's hypotension had resolved by the next day, with pt ready for transfer out of ICU. WBC count has remained around 12k. Creatinine improved, most recently 1.65. According to notes, pt is doing so well that she anticipates going home tomorrow. Currently, pt is on day 6 of broad spectrum antibiotics with Primaxin. I do not know if the degree of initial hypercapnia and acidosis could have caused enough peripheral vasodilation and increased pulmonary vasoconstriction to account for her hypotension and resultant ANA. With pt improved and having had no subjective fever, no objective fever, no source of infection found with CT chest/abd/pelvis, U/A, UCx and BCx on 02/17 and 02/18, and serial CXRs, I do not see a clear indication for continued antibiotics. Recommend discontinuing Primaxin. Rene Mistry MD [facility] pager [phone]
[2018-02-23] MEDS: DOCUSATE SODIUM 100 MG CAPSULE PO SCH (21:40)
[2018-02-23] MEDS: FAMOTIDINE 20 MG TABLET PO SCH (21:41)
[2018-02-24] MEDS: IMIPENEM/CILASTATIN SODIUM 500 MG in NORMAL SALINE 100 ML IV SCH ×3 (02:43→14:00)
[2018-02-24] MEDS: ACETAMINOPHEN 325 MG TABLET PO PRN (02:47)
[2018-02-24] MEDS: LANSOPRAZOLE 30 MG TAB.RAP.DR PO SCH (05:19)
[2018-02-24] MEDS: GABAPENTIN 300 MG CAPSULE PO SCH ×2 (05:19→14:00)
[2018-02-24] MEDS: INSULIN LISPRO 100 UNIT/ML 3 ML VIAL SUBCUT SCH ×3 (07:25→16:37)
[2018-02-24] MEDS: INSULIN LISPRO 100 UNIT/ML 3 ML VIAL SUBCUT PRN ×3 (07:25→16:38)
[2018-02-24] MEDS: BUPROPION HCL 75 MG TABLET PO SCH (09:46)
[2018-02-24] MEDS: FUROSEMIDE 40 MG TABLET PO SCH (09:46)
[2018-02-24] MEDS: FERROUS SULFATE 325 MG TABLET PO SCH (09:46)
[2018-02-24] MEDS: METOPROLOL SUCCINATE 50 MG TAB.SR.24H PO SCH (09:46)
[2018-02-24] MEDS: ASPIRIN 325 MG TABLET, ENT COATED PO SCH (09:46)
[2018-02-24] MEDS: FLUOXETINE HCL 20 MG CAPSULE PO SCH (09:47)
[2018-02-24] MEDS: LISINOPRIL 10 MG TABLET PO SCH (09:47)
[2018-02-24] MEDS: ISOSORBIDE MONONITRATE 30 MG TAB.ER.24H PO SCH (09:48)
[2018-02-24] MEDS: ENOXAPARIN SODIUM INJ 40 MG/0.4 ML DISP.SYRIN SUBCUT SCH (09:48)
[2018-02-24] MEDS: POLYETHYLENE GLYCOL 3350 POWDER 17 GM/1 PACKET PO SCH (09:48)
[2018-02-24] MEDS: INSULIN DETEMIR 100 UNIT/ML 3 ML PEN SUBCUT SCH (09:48)
[2018-02-24] MEDS: LIDOCAINE 5% (700 MG) TRANSDERMAL ADH..PATCH TP SCH (09:50)
[2018-02-24] MEDS: RANOLAZINE 500 MG TAB.SR.12H PO SCH (09:51)
[2018-02-24] MEDS: NORMAL SALINE 1000 ML 1,000 ML IV PRN (12:39)
--- NOTE | 2018-02-24 17:21 | PDOC DISCHARGE SUMMARY ---
General - Admit/Disc Date/PCP Admission Date/Primary Care Provider: 02/18/18 02:35 AMBAR LOPEZ Discharge Date: 02/24/18 - Discharge Diagnosis (1) Chronic kidney disease (CKD) stage G4/A1, severely decreased glomerular filtration rate (GFR) between 15-29 mL/min/1.73 square meter and albuminuria creatinine ratio less than 30 mg/g Is this a current diagnosis for this admission?: Yes (2) Hyperkalemia Is this a current diagnosis for this admission?: Yes (3) Hypotension Is this a current diagnosis for this admission?: Yes (4) Obstructive sleep apnea of adult Is this a current diagnosis for this admission?: Yes (5) Respiratory failure Is this a current diagnosis for this admission?: Yes (6) Sepsis Is this a current diagnosis for this admission?: Yes (7) Diabetes mellitus type 2 in obese Is this a current diagnosis for this admission?: Yes (8) Anemia in chronic kidney disease (CKD) Is this a current diagnosis for this admission?: Yes (9) Mixed anxiety and depressive disorder Is this a current diagnosis for this admission?: Yes (10) Morbid obesity with BMI of 45.0-49.9, adult Is this a current diagnosis for this admission?: Yes - Additional Information Resuscitation Status: Full Code Home Medications: Alprazolam [Xanax 0.5 mg Tablet] 0.5 mg PO Q12HP PRN 05/26/17 Cyclobenzaprine HCl [Flexeril 10 mg Tablet] 10 mg PO QPMP PRN 05/26/17 Fluoxetine HCl [Prozac] 60 mg PO QAM 05/26/17 Furosemide [Lasix 40 mg Tablet] 40 mg PO DAILY 05/26/17 Gabapentin [Neurontin] 600 mg PO Q8 05/26/17 Isosorbide Mononitrate [Isosorbide Mononitrate ER] 30 mg PO DAILY 05/26/17 Lisinopril [Prinivil 10 mg Tablet] 20 mg PO DAILY 05/26/17 Metoprolol Succinate [Toprol XL 100 mg Tablet] 100 mg PO DAILY 05/26/17 Ranitidine HCl [Zantac 150 mg Tablet] 150 mg PO QHS 05/26/17 Ranolazine [Ranexa 500 mg Tab.sr] 500 mg PO Q12 05/26/17 Insulin Degludec [Tresiba Flextouch U-100] 80 unit SQ QHS #8 insuln.pen Empagliflozin/Metformin HCl [Synjardy Xr 25-1,000 mg Tablet] 1 each PO [id number] 10/31/17 Liraglutide [Victoza 2-Thong] 1.8 mg SQ DAILY 10/31/17 Nitroglycerin 0.3 mg SL ASDIR PRN 10/31/17 Aspirin [Ecotrin 325 mg EC Tablet] 325 mg PO DAILY 02/18/18 Bupropion HCl [Bupropion Xl] 150 mg PO DAILY 02/18/18 Dexlansoprazole [Dexilant 60 mg Capsule] 60 mg PO DAILY 02/18/18 Ergocalciferol (Vitamin D2) [Drisdol 50,000 Unit (1.25MG) Capsule] 50,000 unit PO MO@1000 02/18/18 Ferrous Sulfate [Feosol 325 mg Tablet] 325 mg PO BID 02/18/18 Icosapent Ethyl [Vascepa] 2 gm PO BIDBS 02/18/18 Insulin Lispro [Humalog Insulin 100 Unit/1 ml 3 ml Vial] 0 unit SUBCUT .SLD SCALE MDD ACHS 02/18/18 Insulin Lispro [Humalog Insulin 100 Unit/1 ml 3 ml Vial] 5 unit SUBCUT MEALS 05/28 Lidocaine [Lidoderm 5% (700 mg) Transdermal Patch] 1 patch TP DAILY 02/18/18 Oxycodone HCl/Acetaminophen [Percocet 5-325 mg Tablet] 1 tab PO Q8HP PRN History of Present Illness History of Present Illness: JESU ORR is a 57 year old female patient known to my practice who was admitted to my service on 02/18/2018 following presentation to ED with worsening weakness, low blood pressure, elevated lactic acid and leukocytosis. Her initial radiographic evaluation were unrevealing. Due to constellation of her symptoms and laboratory findings she was admitted for acute on chronic kidney disease with hyperkalemia, acute on chronic respiratory failure with hyperkalemia and metabolic acidosis. She Due to her hypotension she was managed with IV Levophed and BiPAP support in ICU. Hospital Course Hospital Course: She was treated with kayexalate for her hyperkalemia. She was seen in consultation by Carlos Leach, hardware test engineer; Karina, circulation clerk; and Justice Kiran, wheel buffer. Her presenting organ failure indices did improved. She admitted to dietary indiscretion regarding her kidney failure restrictions. She was down graded to IMCU with improvement in her medical conditions. Her hospitalization was further complicated by persistent hyperglycemia. Her blood and urine culture were no growth after appropriate incubation period. She will be discharged home today with follow up in the office as instructed upon discharge. Physical Exam Vital Signs: Temp Pulse Resp BP Pulse Ox 97.9 F 59 L 17 149/82 H 97 02/24/18 12:02 02/24/18 14:00 02/24/18 12:02 02/24/18 12:02 02/24/18 12:02 Intake & Output 02/23/18 02/24/18 02/25/18 06:59 06:59 06:59 Intake Total 4052 3250 1555 Output Total 2900 4950 800 Balance 1152 -1700 755 Weight 131.4 kg Physical Exam: General appearance: PRESENT: morbidly obese Head exam: PRESENT: atraumatic, normocephalic Eye exam: PRESENT: conjunctiva pink, EOMI, PERRLA. ABSENT: scleral icterus Ear exam: PRESENT: normal external ear exam Mouth exam: PRESENT: moist Respiratory exam: PRESENT: clear to auscultation tarsha, decreased breath sounds - at lung bases Cardiovascular exam: PRESENT: RRR. ABSENT: diastolic murmur, rubs, systolic murmur GI/Abdominal exam: PRESENT: hernia - right anterior abdominal wall, normal bowel sounds, soft. ABSENT: distended, guarding, mass, organomegaly, rebound, tenderness Extremities exam: ABSENT: pedal edema Musculoskeletal exam: PRESENT: normal inspection Neurological exam: PRESENT: alert, awake, oriented to person, oriented to place , oriented to time, oriented to situation, CN II-XII grossly intact. ABSENT: motor sensory deficit Psychiatric exam: PRESENT: appropriate affect, normal mood. ABSENT: homicidal ideation, suicidal ideation Skin exam: PRESENT: dry, warm Results Laboratory Results: 02/23/18 13:04 02/23/18 13:04 02/18/18 02/18/18 02/18/18 03:07 03:07 08:32 Creatine Kinase 127 117 CK-MB (CK-2) 3.53 Troponin I < 0.012 08/05/2802/18/18 02/18/18 08:32 15:40 15:40 Creatine Kinase 96 CK-MB (CK-2) 3.60 2.64 Troponin I < 0.012 < 0.012 Impressions: Abdomen/Pelvis CT 02/17/18 22:30 IMPRESSION: No acute intrathoracic finding. TECHNICAL DOCUMENTATION: Quality ID # [id number]: Final reports with documentation of one or more dose reduction techniques (e.g., Automated exposure control, adjustment of the mA and/or kV according to patient size, use of iterative reconstruction technique) 2010 [employer]- All Rights Reserved EXAM DESCRIPTION: CT ABDOMEN AND PELVIS WITHOUT IV CONTRAST COMPLETED DATE/TME: 02/17/2018 22:30 CLINICAL HISTORY: 57 years, Female, sepsis COMPARISON: None. TECHNIQUE: Contiguous axial images of the abdomen and pelvis were obtained without IV contrast followed by reconstruction images. This exam was performed according to our departmental dose-optimization program, which includes automated exposure control, adjustment of the mA and/or kV according to patient size and/or use of iterative reconstruction technique. Images stored on PACS. All CT scanners at this facility use dose modulation, iterative reconstruction, and/or weight based dosing when appropriate to reduce radiation dose to as low as reasonably achievable (ALARA). [facility]: Dose Right [facility]: CareDose [facility]: Dose Right [facility]: Teradose 4D [facility]: [employer] LIMITATIONS: None. FINDINGS: Liver: Within normal limits Gallbladder/Bile ducts: Cholecystectomy clips are seen in gallbladder fossa. No intra or extrahepatic duct dilatation. Spleen: Within normal limits Pancreas: Within normal limits Adrenal glands: Within normal limits Kidneys/Bladder: Again noted, absent right kidney. No left renal stones or hydronephrosis. Contracted bladder without significant findings. GI tract: Stable appearance of a large right abdominal wall hernia with herniated cecum, portions of the ascending colon and multiple small bowel loops. Abdominal wall defect measures 9.2 cm AP x 8.6 cm CC. The most lateral aspect of the hernia sac is outside field of view. The visualized portions of the hernia sac show no evidence of free fluid or bowel dilatation. No evidence of obstruction or active inflammatory process. No intra-abdominal collection. Uterus/adnexa: Anteverted uterus. No suspicious adnexal lesion. Vascular structures: Scattered vascular calcifications Free fluid: No free fluid. Lymph nodes: No radiographically enlarged lymph nodes Soft tissues: Large right abdominal wall hernia as described above. Incidentally noted left obturator externus intramuscular lipoma measuring 3 cm. Bones: No acute osseous finding. Mild degenerative changes at L3-L4. IMPRESSION: 1. No acute intra-abdominal finding 2. Stable large right abdominal wall hernia as described. 3. Absent right kidney TECHNICAL DOCUMENTATION: Quality ID # [id number]: Final reports with documentation of one or more dose reduction techniques (e.g., Automated exposure control, adjustment of the mA and/or kV according to patient size, use of iterative reconstruction technique) 2010 [employer]- All Rights Reserved Chest CT 02/17/18 22:30 IMPRESSION: No acute intrathoracic finding. TECHNICAL DOCUMENTATION: Quality ID # 436: Final reports with documentation of one or more dose reduction techniques (e.g., Automated exposure control, adjustment of the mA and/or kV according to patient size, use of iterative reconstruction technique) 2010 [employer]- All Rights Reserved EXAM DESCRIPTION: CT ABDOMEN AND PELVIS WITHOUT IV CONTRAST COMPLETED DATE/TME: 02/17/2018 22:30 CLINICAL HISTORY: 57 years, Female, sepsis COMPARISON: None. TECHNIQUE: Contiguous axial images of the abdomen and pelvis were obtained without IV contrast followed by reconstruction images. This exam was performed according to our departmental dose-optimization program, which includes automated exposure control, adjustment of the mA and/or kV according to patient size and/or use of iterative reconstruction technique. Images stored on PACS. All CT scanners at this facility use dose modulation, iterative reconstruction, and/or weight based dosing when appropriate to reduce radiation dose to as low as reasonably achievable (ALARA). [facility]: Dose Right [facility]: CareDose [facility]: Dose Right [facility]: Teradose 4D [facility]: [employer] LIMITATIONS: None. FINDINGS: Liver: Within normal limits Gallbladder/Bile ducts: Cholecystectomy clips are seen in gallbladder fossa. No intra or extrahepatic duct dilatation. Spleen: Within normal limits Pancreas: Within normal limits Adrenal glands: Within normal limits Kidneys/Bladder: Again noted, absent right kidney. No left renal stones or hydronephrosis. Contracted bladder without significant findings. GI tract: Stable appearance of a large right abdominal wall hernia with herniated cecum, portions of the ascending colon and multiple small bowel loops. Abdominal wall defect measures 9.2 cm AP x 8.6 cm CC. The most lateral aspect of the hernia sac is outside field of view. The visualized portions of the hernia sac show no evidence of free fluid or bowel dilatation. No evidence of obstruction or active inflammatory process. No intra-abdominal collection. Uterus/adnexa: Anteverted uterus. No suspicious adnexal lesion. Vascular structures: Scattered vascular calcifications Free fluid: No free fluid. Lymph nodes: No radiographically enlarged lymph nodes Soft tissues: Large right abdominal wall hernia as described above. Incidentally noted left obturator externus intramuscular lipoma measuring 3 cm. Bones: No acute osseous finding. Mild degenerative changes at L3-L4. IMPRESSION: 1. No acute intra-abdominal finding 2. Stable large right abdominal wall hernia as described. 3. Absent right kidney TECHNICAL DOCUMENTATION: Quality ID # 436: Final reports with documentation of one or more dose reduction techniques (e.g., Automated exposure control, adjustment of the mA and/or kV according to patient size, use of iterative reconstruction technique) 2010 [employer]- All Rights Reserved Chest X-Ray 02/21/18 06:00 IMPRESSION: STABLE APPEARANCE OF THE CHEST. SUPPORT DEVICES UNCHANGED. Qualifiers - * PATIENT BEING DISCHARGED WITH ANY OF THE FOLLOWING DIAGNOSIS: No Plan Discharge Plan: Patient will be discharged home today with foillow up appointment as indicated upon discharge.
[2018-02-24 17:38] VITALS: BP 158/79
--- NOTE | 2018-02-24 19:50 | PDOC PROGRESS REPORT ---
Subjective Progress Note for:: 02/24/18 Subjective:: Patient seen about on lunchtime. Seemingly doing well. Expected to be discharged later on today. Patient feels much more energetic today. Her fatigue and tiredness has improved. Chest pain she was having has resolved.. Patient is maintaining sinus rhythm. Review of systems: Rest review of systems negative. Medications: Medications have been reviewed. Reason For Visit: SEPSIS/CHRONIC CHF/CHRONIC KIDNEY DISEASE Physical Exam Vital Signs: Temp Pulse Resp BP Pulse Ox 97.8 F 58 L 18 158/79 H 100 02/24/18 17:33 02/24/18 17:33 02/24/18 17:33 02/24/18 17:33 02/24/18 17:33 Intake & Output 02/23/18 02/24/18 02/25/18 06:59 06:59 06:59 Intake Total 4052 3250 1555 Output Total 2900 4950 800 Balance 1152 -1700 755 Weight 131.4 kg Exam: GENERAL: well-nourished and in no acute distress. Alert and oriented x3 HEAD: Atraumatic, normocephalic. EYES: Pupils equal round and reactive to light, extraocular movements intact, sclera anicteric, conjunctiva are normal. ENT: TMs normal, nares patent, oropharynx clear without exudates. Moist mucous membranes. No oral ulcerations or bleeding gums noted NECK: supple without lymphadenopathy. Trachea is central. No cervical or axillary lymphadenopathy noted. Carotids are 2+, JVD WNL LUNGS: Respiration seems nonlabored, no significant accessory muscle action noted. Breath sounds clear to auscultation bilaterally and equal noted. No wheezes rales or rhonchi noted. No significant dullness noted on percussion. CHEST: Palpation of the chest wall shows no significant chest wall tenderness. HEART: [place] HAM STRINGER, No PSH, 1/6 PAO aortic area, 1/6 meza systolic murmur mitral area, no rubs, no gallops. ABDOMEN: Soft, no significant tenderness appreciated, normoactive bowel sounds. No guarding, no rebound. No rigidity noted . No masses appreciated. EXTREMITIES: Pedal pulses are 1-2+, no calf tenderness noted. No clubbing or cyanosis. Trace pedal edema noted NEUROLOGICAL: Focused neurological exam showed no significant neurologic deficit. Normal speech, no focal weakness appreciated. PSYCH: Normal mood, normal affect. Judgment and insight within normal limits. SKIN: No significant ecchymosis, skin is noted to be warm. MUSCULOSKELETAL EXAM: No significant acute joint swelling noted. Results Laboratory Results: 02/23/18 13:04 02/23/18 13:04 02/18/18 02/18/18 02/18/18 03:07 03:07 08:32 Creatine Kinase 127 117 CK-MB (CK-2) 3.53 Troponin I < 0.012 02/18/18 02/18/18 02/18/18 08:32 15:40 15:40 Creatine Kinase 96 CK-MB (CK-2) 3.60 2.64 Troponin I < 0.012 < 0.012 EKG Comments: Shows sinus rhythm without any sustained tachycardia or bradycardia Impressions: Abdomen/Pelvis CT 02/17/18 22:30 IMPRESSION: No acute intrathoracic finding. TECHNICAL DOCUMENTATION: Quality ID # 436: Final reports with documentation of one or more dose reduction techniques (e.g., Automated exposure control, adjustment of the mA and/or kV according to patient size, use of iterative reconstruction technique) 2010 [employer]- All Rights Reserved EXAM DESCRIPTION: CT ABDOMEN AND PELVIS WITHOUT IV CONTRAST COMPLETED DATE/TME: 02/17/2018 22:30 CLINICAL HISTORY: 57 years, Female, sepsis COMPARISON: None. TECHNIQUE: Contiguous axial images of the abdomen and pelvis were obtained without IV contrast followed by reconstruction images. This exam was performed according to our departmental dose-optimization program, which includes automated exposure control, adjustment of the mA and/or kV according to patient size and/or use of iterative reconstruction technique. Images stored on PACS. All CT scanners at this facility use dose modulation, iterative reconstruction, and/or weight based dosing when appropriate to reduce radiation dose to as low as reasonably achievable (ALARA). [facility]: Dose Right [facility]: CareDose [facility]: Dose Right [facility]: Teradose 4D [facility]: [employer] LIMITATIONS: None. FINDINGS: Liver: Within normal limits Gallbladder/Bile ducts: Cholecystectomy clips are seen in gallbladder fossa. No intra or extrahepatic duct dilatation. Spleen: Within normal limits Pancreas: Within normal limits Adrenal glands: Within normal limits Kidneys/Bladder: Again noted, absent right kidney. No left renal stones or hydronephrosis. Contracted bladder without significant findings. GI tract: Stable appearance of a large right abdominal wall hernia with herniated cecum, portions of the ascending colon and multiple small bowel loops. Abdominal wall defect measures 9.2 cm AP x 8.6 cm CC. The most lateral aspect of the hernia sac is outside field of view. The visualized portions of the hernia sac show no evidence of free fluid or bowel dilatation. No evidence of obstruction or active inflammatory process. No intra-abdominal collection. Uterus/adnexa: Anteverted uterus. No suspicious adnexal lesion. Vascular structures: Scattered vascular calcifications Free fluid: No free fluid. Lymph nodes: No radiographically enlarged lymph nodes Soft tissues: Large right abdominal wall hernia as described above. Incidentally noted left obturator externus intramuscular lipoma measuring 3 cm. Bones: No acute osseous finding. Mild degenerative changes at L3-L4. IMPRESSION: 1. No acute intra-abdominal finding 2. Stable large right abdominal wall hernia as described. 3. Absent right kidney TECHNICAL DOCUMENTATION: Quality ID # 436: Final reports with documentation of one or more dose reduction techniques (e.g., Automated exposure control, adjustment of the mA and/or kV according to patient size, use of iterative reconstruction technique) 2010 [employer]- All Rights Reserved Chest CT 02/17/18 22:30 IMPRESSION: No acute intrathoracic finding. TECHNICAL DOCUMENTATION: Quality ID # [id number]: Final reports with documentation of one or more dose reduction techniques (e.g., Automated exposure control, adjustment of the mA and/or kV according to patient size, use of iterative reconstruction technique) 2010 [employer]- All Rights Reserved EXAM DESCRIPTION: CT ABDOMEN AND PELVIS WITHOUT IV CONTRAST COMPLETED DATE/TME: 02/17/2018 22:30 CLINICAL HISTORY: 57 years, Female, sepsis COMPARISON: None. TECHNIQUE: Contiguous axial images of the abdomen and pelvis were obtained without IV contrast followed by reconstruction images. This exam was performed according to our departmental dose-optimization program, which includes automated exposure control, adjustment of the mA and/or kV according to patient size and/or use of iterative reconstruction technique. Images stored on PACS. All CT scanners at this facility use dose modulation, iterative reconstruction, and/or weight based dosing when appropriate to reduce radiation dose to as low as reasonably achievable (ALARA). [facility]: Dose Right [facility]: CareDose [facility]: Dose Right [facility]: Teradose 4D [facility]: [employer] LIMITATIONS: None. FINDINGS: Liver: Within normal limits Gallbladder/Bile ducts: Cholecystectomy clips are seen in gallbladder fossa. No intra or extrahepatic duct dilatation. Spleen: Within normal limits Pancreas: Within normal limits Adrenal glands: Within normal limits Kidneys/Bladder: Again noted, absent right kidney. No left renal stones or hydronephrosis. Contracted bladder without significant findings. GI tract: Stable appearance of a large right abdominal wall hernia with herniated cecum, portions of the ascending colon and multiple small bowel loops. Abdominal wall defect measures 9.2 cm AP x 8.6 cm CC. The most lateral aspect of the hernia sac is outside field of view. The visualized portions of the hernia sac show no evidence of free fluid or bowel dilatation. No evidence of obstruction or active inflammatory process. No intra-abdominal collection. Uterus/adnexa: Anteverted uterus. No suspicious adnexal lesion. Vascular structures: Scattered vascular calcifications Free fluid: No free fluid. Lymph nodes: No radiographically enlarged lymph nodes Soft tissues: Large right abdominal wall hernia as described above. Incidentally noted left obturator externus intramuscular lipoma measuring 3 cm. Bones: No acute osseous finding. Mild degenerative changes at L3-L4. IMPRESSION: 1. No acute intra-abdominal finding 2. Stable large right abdominal wall hernia as described. 3. Absent right kidney TECHNICAL DOCUMENTATION: Quality ID # [id number]: Final reports with documentation of one or more dose reduction techniques (e.g., Automated exposure control, adjustment of the mA and/or kV according to patient size, use of iterative reconstruction technique) 2010 [employer]- All Rights Reserved Chest X-Ray 02/21/18 06:00 IMPRESSION: STABLE APPEARANCE OF THE CHEST. SUPPORT DEVICES UNCHANGED. Assessment & Plan - Diagnosis (1) Hypotension Qualifiers: Hypotension type: unspecified hypotension type Qualified Code(s): I95.9 - Hypotension, unspecified Is this a current diagnosis for this admission?: Yes (2) Hyperkalemia Is this a current diagnosis for this admission?: Yes (3) Sepsis Qualifiers: Sepsis type: sepsis due to unspecified organism Qualified Code(s): A41.9 - Sepsis, unspecified organism Is this a current diagnosis for this admission?: Yes (4) Obstructive sleep apnea of adult Is this a current diagnosis for this admission?: Yes (5) Chronic kidney disease (CKD) stage G4/A1, severely decreased glomerular filtration rate (GFR) between 15-29 mL/min/1.73 square meter and albuminuria creatinine ratio less than 30 mg/g Is this a current diagnosis for this admission?: Yes (6) Morbid obesity with BMI of 45.0-49.9, adult Is this a current diagnosis for this admission?: Yes (7) Diabetes Qualifiers: Diabetes mellitus type: type 2 Diabetes mellitus complication status: without complication Is this a current diagnosis for this admission?: Yes (8) Probable sepsis Is this a current diagnosis for this admission?: Yes - Notes Notes: Patient advised follow-up after discharge. Chest pain: [place] to be atypical and noncardiac. Resolved. Patient was reassured but was informed to report should it recur. Hypotension: Improved and resolved. Hyperkalemia: Resolved. Most likely related to sepsis. Advanced chronic kidney disease: Patient has single functioning kidney. She had a nephrectomy on one side. Patient claims that she was told she had CKD stage III. Renal functions have improved. Renal function seems baseline. Sleep apnea syndrome. Recommend CPAP therapy, at night and also while taking naps. Patient was noted to be severely acidotic and with CO2 retention. Patient has history of CPAP use and also with in-line oxygen use. Director Sports are on board. Diabetes: Recommend good control of diabetes. Sepsis: Resolved. ID specialist remotely reviewed the chart and did not feel antibiotics without any more needed to be continued. Abdominal wall hernia: Surgeon saw the patient. I am told by the patient, surgeon did not feel she needs surgery at this time. - Time Time with patient: 15-25 minutes - CODE STATUS was discussed, patient remains full code. Surrogate decision-maker unchanged. Multiple medical problems were addressed. More than 50% of the time spent coordinating care, discussing management plans with involved caregivers. Management plans discussed with involved personnels. Medical decision making was of moderate to high complexity , patient's has multiple comorbidities. Medications reviewed and adjusted accordingly: Yes
== END 2018-02-24 17:56 | disposition home health service (06) | DRG 871 ==
LOC: ER 21:21 → EH 02-18 02:35 → ICU 02-18 14:50 → 3N 02-20 21:00
PROVIDERS: ADMIT Internal Medicine Geriatric Medicine; ATTEND Internal Medicine Geriatric Medicine
PROC: 02HV33Z Insertion of Infusion Device into Superior Vena Cava, Percutaneous Approach (ICD-10-PCS; principal; 2018-02-18)
DX: A41.9 Sepsis, unspecified organism (principal); N18.6 End stage renal disease; J96.21 Acute and chronic respiratory failure with hypoxia; I13.2 Hypertensive heart and chronic kidney disease with heart failure and with stage 5 chronic kidney disease, or end stage renal disease; E87.2 Acidosis; Z68.42 Body mass index [BMI] 45.0-49.9, adult; N17.9 Acute kidney failure, unspecified; K43.6 Other and unspecified ventral hernia with obstruction, without gangrene; E11.22 Type 2 diabetes mellitus with diabetic chronic kidney disease; E11.65 Type 2 diabetes mellitus with hyperglycemia; I50.9 Heart failure, unspecified; I11.0 Hypertensive heart disease with heart failure; I25.10 Atherosclerotic heart disease of native coronary artery without angina pectoris; G47.33 Obstructive sleep apnea (adult) (pediatric); M10.9 Gout, unspecified; E87.5 Hyperkalemia; E66.01 Morbid (severe) obesity due to excess calories; I25.2 Old myocardial infarction; Z99.81 Dependence on supplemental oxygen; Z86.73 Personal history of transient ischemic attack (TIA), and cerebral infarction without residual deficits; Z85.528 Personal history of other malignant neoplasm of kidney; Z90.5 Acquired absence of kidney
CPT/HCPCS: 36415; 36600; 71045; 71250; 74176; 80048; 80053; 80307; 81001; 82272; 82550; 82553; 82803; 82962; 83605; 83690; 83735; 83880; 84100; 84132; 84484; 85025; 85027; 87040; 87086; 93005; 93010; 93306; 94660; 96365; 99291; 99292; C1751; J0610; J0743; J1335; J1642; J1650; J1815; J2405; J3490; J7030; S0164

== ENCOUNTER → 2018-03-10 | Outpatient (CLI) | payer MEDICARE, MEDICAID ==
[2018-03-10 10:54] LABS: HEMATOCRIT 32.7 % (36.0-47.0); HEMOGLOBIN 10.9 g/dL (12.0-15.5); MEAN CORPUSCULAR HEMOGLOBIN 28.2 pg (27.0-33.4); MEAN CORPUSCULAR HGB CONC 33.2 g/dL (32.0-36.0); MEAN CORPUSCULAR VOLUME 85 fl (80-97); PLATELET COUNT 385 10^3/uL (150-450); RED BLOOD COUNT 3.86 10^6/uL (3.72-5.28); RED CELL DISTRIBUTION WIDTH 14.7 % (11.5-14.0); WHITE BLOOD COUNT 9.8 10^3/uL (4.0-10.5)
[2018-03-10 11:03] LABS: APPEARANCE,URINE SLIGHTLY-CLOUDY; BILIRUBIN,URINE NEGATIVE (NEGATIVE); COLOR,URINE YELLOW; GLUCOSE, URINE >=500 mg/dL (NEGATIVE); KETONES,URINE NEGATIVE (NEGATIVE); LEUKOCYTE ESTERASE,URINE MODERATE (NEGATIVE); NITRITE,URINE NEGATIVE (NEGATIVE); PROTEIN,URINE NEGATIVE (NEGATIVE); URINE SPECIFIC GRAVITY 1.009; UROBILINOGEN,URINE NEGATIVE mg/dL (<2.0)
[2018-03-10 11:24] LABS: ANION GAP 16 (5-19); BLOOD UREA NITROGEN 37 mg/dL (7-20); CALCIUM 9.3 mg/dL (8.4-10.2); CARBON DIOXIDE 24 mmol/L (22-30); CHLORIDE 100 mmol/L (98-107); GLUCOSE 217 mg/dL (75-110); POTASSIUM 5.8 mmol/L (3.6-5.0); SODIUM 139.8 mmol/L (137-145)
== END ==
LOC: OD 09:23
PROVIDERS: ATTEND Internal Medicine Nephrology
DX: N18.3 Chronic kidney disease, stage 3 (moderate) (principal); I50.9 Heart failure, unspecified; E11.9 Type 2 diabetes mellitus without complications; D64.9 Anemia, unspecified; C64.9 Malignant neoplasm of unspecified kidney, except renal pelvis
CPT/HCPCS: 36415; 80048; 81001; 85027; 87086; 87088; 87186

== ENCOUNTER → 2018-03-10 | Outpatient (CLI) | payer MEDICARE, MEDICAID ==
--- NOTE | 2018-03-10 10:43 | RADIOLOGY REPORT (SQ) ---
EXAM DESCRIPTION: C SP 6 OR MORE VIEWS COMPLETED DATE/TIME: 03/10/2018 10:29 am REASON FOR STUDY: CERVICALGIA M54.2 CERVICALGIA M54.5 LOW BACK PAIN COMPARISON: 04/15/2017 NUMBER OF VIEWS: Seven views. TECHNIQUE: AP, lateral, obliques, flexion, extension, and odontoid radiographic images acquired of t he cervical spine. LIMITATIONS: None. FINDINGS: MINERALIZATION: Normal. ALIGNMENT: Anatomic. FLEXION/EXTENSION: No instability. VERTEBRAE: Vertebral bodies of normal height. DISCS: No significant osteophytes or sclerosis. Disc height maintained. FORAMINA: No osteophytes or foraminal narrowing. LATERAL AND POSTERIOR ELEMENTS: Facets, lateral masses, and spinous processes without significant fin dings. HARDWARE: None in the spine. SOFT TISSUES: No masses or calcifications. Lung apices clear. OTHER: No other significant finding. IMPRESSION: NO SIGNIFICANT FINDING ON 7 VIEW SPINE SERIES. NO INSTABILITY ON FLEXION/EXTENSION. TECHNICAL DOCUMENTATION: JOB ID: [id number] [employer]- All Rights Reserved Reading location - IP/workstation name: [email or web address]
--- NOTE | 2018-03-10 10:58 | RADIOLOGY REPORT (SQ) ---
EXAM DESCRIPTION: LUMBAR SPINE W/FLEX/EXT COMPLETED DATE/TIME: 03/10/2018 10:29 am REASON FOR STUDY: LBP M54.2 CERVICALGIA M54.5 LOW BACK PAIN COMPARISON: None. NUMBER OF VIEWS: 7 views TECHNIQUE: AP and oblique views and lateral views of the lumbar spine in neutral, flexion, and exten aisha. LIMITATIONS: None. FINDINGS: MINERALIZATION: Normal. SEGMENTATION: Normal. No transitional anatomy. ALIGNMENT: Normal. FLEXION/EXTENSION: No instability. VERTEBRAE: Maintained height. No fracture or worrisome bone lesion. DISCS: There is significant narrowing at L3-4. Small marginal osteophytes are present. POSTERIOR ELEMENTS: Pedicles and facets are intact. No pars defect or posterior arch defects. HARDWARE: None in the spine. OTHER: No other significant finding. IMPRESSION: Degenerative disc disease at L3-4. Mild spondylosis. No instability on flexion/extension. TECHNICAL DOCUMENTATION: JOB ID: [id number] [employer]- All Rights Reserved Reading location - IP/workstation name: [email or web address]
== END ==
LOC: OD 09:27
PROVIDERS: ATTEND Neurological Surgery
DX: M54.2 Cervicalgia (principal); M54.5 Low back pain
CPT/HCPCS: 72052; 72114

== ENCOUNTER 2018-03-13 07:19 | Inpatient (IN) | payer MEDICARE, MEDICAID ==
--- NOTE | 2018-03-13 07:26 | ER Document Report ---
ED General <PATY PIÑA - Last Filed: 03/13/18 10:24> - General Mode of Arrival: Medic Information source: Patient, [facility] Records TRAVEL OUTSIDE OF THE [place] IN LAST 30 DAYS: No <LYNETTE MEJIA - Last Filed: 03/17/18 22:33> - General Stated Complaint: BACK PAIN/BLOOD PRESSURE ISSUE Time Seen by Provider: 03/13/18 07:24 Notes: The patient had outpatient lab work done on 03/10/2018 showing a urine with large WBCs, 3+ bacteria, and culture showed greater than 100,000 colony count E. coli. She was not informed of this and treatment was not started. She was called and informed about an elevated potassium on that day. (PATY PIÑA) 57 year old female that presents to the emergency department today with complaints of hypotension with associated dizziness x3 days. Patient was seen here in this emergency department on 02/18/2018 and admitted for sepsis. Patient was discharged on 02/24 but a source of infection was not identified. EMS reports a blood pressure of 70s systolic when they arrived on scene, after a liter of fluids giving in route the patient's blood pressure here is 90s systolic. Patient states she has not been drinking as much water as she should secondary to nausea. Patient denies any fevers or vomiting. (LYNETTE MEJIA) - Related Data Allergies/Adverse Reactions: sulfamethoxazole [From Bactrim] Allergy (Severe, Verified 03/13/18 07:40) rash trimethoprim [From Bactrim] Allergy (Severe, Verified 03/13/18 07:40) rash Penicillins Allergy (Unknown, Verified 03/13/18 07:40) Past Medical History - Social History Smoking Status: Unknown if Ever Smoked Family History: Hypertension - Past Medical History Cardiac Medical History: Reports: Hx Congestive Heart Failure, Hx Coronary Artery Disease, Hx Heart Attack - x2, Hx Hypertension Denies: Hx DVT Pulmonary Medical History: Reports: Hx Pneumonia Denies: Hx Asthma, Hx Bronchitis, Hx COPD Neurological Medical History: Reports: Hx Cerebrovascular Accident - NO DAMAGE. Denies: Hx Seizures Endocrine Medical History: Reports: Hx Diabetes Mellitus Type 1, Hx Diabetes Mellitus Type 2 Renal/ Medical History: Reports: Hx End Stage Renal Disease. Denies: Hx Peritoneal Dialysis Malignancy Medical History: Reports: Hx Renal (Kidney) Cancer - s/p right nephrectomy September, GI Medical History: Reports: Hx Gastroesophageal Reflux Disease, Hx Hiatal Hernia. Denies: Hx Crohn's Disease, Hx Ulcerative Colitis Musculoskeletal Medical History: Reports Hx Arthritis - gout Skin Medical History: Denies Hx Psoriasis Psychiatric Medical History: Reports: Hx Depression Traumatic Medical History: Denies: Hx Traumatic Brain Injury Infectious Medical History: Denies: Hx C-Diff Past Surgical History: Reports: Hx Cardiac Catheterization - stent placement, Hx Cardiac Surgery - stents, Hx Cholecystectomy, Hx Coronary Stent - 2013, Hx Kidney (Renal Surgery) - right nephrectomy, Hx Orthopedic Surgery - left hand, left great toe amputation, Other - right nephrectomy for ca. Denies: Hx Hysterectomy - Immunizations Hx Diphtheria, Pertussis, Tetanus Vaccination: Yes Hx Pneumococcal Vaccination: 07/11/13 <LYNETTE MEJIA - Last Filed: 03/17/18 22:33> Physical Exam <PATY PIÑA - Last Filed: 03/13/18 10:24> - Vital signs Interpretation: Hypotensive <LYNETTE MEJIA - Last Filed: 03/17/18 22:33> - Vital signs Vitals: BP 93/62 L 03/13/18 07:26 - Notes Notes: Physical Exam: General: Alert, morbidly obese. HEENT: Normocephalic. Atraumatic. PERRL. Extraocular movements intact. Oropharynx clear. Dry mucous membranes. Neck: Supple. Non-tender. Respiratory: No respiratory distress. Clear and equal breath sounds bilaterally. Cardiovascular: Regular rate and rhythm. Abdominal: Morbidly obese. Non-tender. No distension. Normal Bowel Sounds. Back: Non-tender. No deformity or step off. Extremities: Moves all four extremities. Upper extremities: Normal inspection. Normal ROM. Lower extremities: Trace pitting edema to bilateral lower extremities. Normal ROM. Neurological: Normal cognition. AAOx4. Normal speech. Psychological: Normal affect. Normal Mood. Skin: Warm. Dry. Normal color. (LYNETTE MEJIA) Course - Laboratory Result Diagrams: 03/13/18 06:57 03/13/18 06:57 - EKG Interpretation by Ct EKG shows normal: Sinus rhythm, [place], QRS Complexes. abnormal: Intervals - Prolonged QT interval, ST-T Waves - Borderline T abnormalities Rate: Normal - 81 [place]/QRS: Left axis deviation, IVCD Heart block present: 1st Degree <AYANAPATY - Last Filed: 03/13/18 10:24> - Laboratory Result Diagrams: 03/16/18 06:09 03/16/18 06:09 <LYNETTE MEJIA - Last Filed: 03/17/18 22:33> - Vital Signs Vital signs: Temp Pulse Resp BP Pulse Ox 97.7 F 78 16 137/72 H 98 03/16/18 18:47 03/16/18 18:47 03/16/18 18:47 03/16/18 18:47 03/16/18 18:47 - Laboratory Laboratory results interpreted by me: 03/13/18 03/13/18 03/13/18 06:57 06:57 07:27 RBC 3.69 L Hgb 10.4 L Hct 31.7 L RDW 15.0 H Eosinophils % 6.2 H VBG pH Potassium 5.1 H Chloride 96 L BUN 45 H Creatinine 3.24 H Est GFR ( Amer) 18 L Est GFR (Non-Af Amer) 15 L Glucose 158 H Lactic Acid 2.3 H Urine Glucose (UA) Urine Blood Ur Leukocyte Esterase 03/13/18 03/13/18 07:27 07:50 RBC Hgb Hct RDW Eosinophils % VBG pH 7.29 L Potassium Chloride BUN Creatinine Est GFR ( Amer) Est GFR (Non-Af Amer) Glucose Lactic Acid Urine Glucose (UA) >=500 H Urine Blood SMALL H Ur Leukocyte Esterase LARGE H Critical Care Note - Critical Care Note Total time excluding time spent on procedures (mins): 35 <PATY PIÑA - Last Filed: 03/13/18 10:24> Discharge - Discharge Admitting Provider: [facility] Unit Admitted: [facility] <PATY PIÑA - Last Filed: 03/13/18 10:24> <LYNETTE MEJIA - Last Filed: 03/17/18 22:33> - Discharge Clinical Impression: Dehydration, Acute kidney injury, Diabetes mellitus type 2 in obese Hypotension Qualifiers: Hypotension type: unspecified hypotension type Qualified Code(s): I95.9 - Hypotension, unspecified Urinary tract infection Qualifiers: Urinary tract infection type: site unspecified Hematuria presence: without hematuria Qualified Code(s): N39.0 - Urinary tract infection, site not specified Condition: Stable Disposition: ADMITTED INPATIENT Scribe Attestation: 03/13/18 09:31 I personally performed the services described in the documentation, reviewed and edited the documentation which was dictated to the scribe in my presence, and it accurately records my words and actions. (PATY PIÑA) Scribe Documentation - Scribe Written by Scribe:: Deng Chappell, 03/13/2018 0736 acting as scribe for :: Ayana <LYNETTE MEJIA - Last Filed: 03/17/18 22:33>
[2018-03-13] MEDS ORDERED: NORMAL SALINE 1000 ML 1,000 ML IV ONE ×2 (07:31→10:24)
[2018-03-13 07:48] LABS: ABSOLUTE BASOPHILS # (AUTO) 0.1 10^3/uL (0.0-0.2); ABSOLUTE EOSINOPHILS # (AUTO) 0.6 10^3/uL (0.0-0.6); ABSOLUTE MONOCYTES (AUTO) 0.5 10^3/uL (0.1-1.4); ABSOLUTE NEUT (AUTO) 5.9 10^3/uL (1.7-8.2); BASOPHILS % (AUTO) 0.8 % (0-2); EOSINOPHILS % (AUTO) 6.2 % (0-6); HEMATOCRIT 31.7 % (36.0-47.0); HEMOGLOBIN 10.4 g/dL (12.0-15.5); MEAN CORPUSCULAR HEMOGLOBIN 28.2 pg (27.0-33.4); MEAN CORPUSCULAR HGB CONC 32.9 g/dL (32.0-36.0); MEAN CORPUSCULAR VOLUME 86 fl (80-97); MONOCYTES % (AUTO) 4.6 % (3-13); PLATELET COUNT 336 10^3/uL (150-450); RED BLOOD COUNT 3.69 10^6/uL (3.72-5.28); SEGMENTED NEUTROPHILS % (AUTO) 58.4 % (42-78); TOTAL CELLS COUNTED % (AUTO) 100 %; WHITE BLOOD COUNT 10.1 10^3/uL (4.0-10.5)
[2018-03-13] MEDS ORDERED: LEVOFLOXACIN 750 MG/D5W RTU 750 MG/150 ML RTUPB IV ONE (07:52)
[2018-03-13 07:54] LABS: VENOUS BLOOD HCO3 28.6 mmol/L (20-32); VENOUS BLOOD PCO2 60.5 mmHg (35-63); VENOUS BLOOD PH 7.29 (7.30-7.42)
[2018-03-13 08:12] LABS: AMORPHOUS SEDIMENT,URINE TRACE /HPF; APPEARANCE,URINE CLOUDY; BILIRUBIN,URINE NEGATIVE (NEGATIVE); COLOR,URINE YELLOW; GLUCOSE, URINE >=500 mg/dL (NEGATIVE); KETONES,URINE NEGATIVE (NEGATIVE); LEUKOCYTE ESTERASE,URINE LARGE (NEGATIVE); NITRITE,URINE NEGATIVE (NEGATIVE); PROTEIN,URINE NEGATIVE (NEGATIVE); URINE SPECIFIC GRAVITY 1.011; UROBILINOGEN,URINE NEGATIVE mg/dL (<2.0)
[2018-03-13 08:15] LABS: ALANINE AMINOTRANSFERASE 28 U/L (9-52); ALKALINE PHOSPHATASE 79 U/L (38-126); ANION GAP 15 (5-19); ASPARTATE AMINO TRANSFERASE 20 U/L (14-36); BILIRUBIN,DIRECT 0.4 mg/dL (0.0-0.4); BILIRUBIN,TOTAL 0.5 mg/dL (0.2-1.3); BLOOD UREA NITROGEN 45 mg/dL (7-20); CALCIUM 9.1 mg/dL (8.4-10.2); CARBON DIOXIDE 28 mmol/L (22-30); CHLORIDE 96 mmol/L (98-107); CREATINE KINASE 57 U/L (30-135); GLUCOSE 158 mg/dL (75-110); POTASSIUM 5.1 mmol/L (3.6-5.0); SODIUM 138.7 mmol/L (137-145); TOTAL PROTEIN 7.5 g/dL (6.3-8.2)
[2018-03-13 08:35] LABS: CREATINE KINASE MB 1.79 ng/mL (<4.55)
[2018-03-13 08:39] LABS: TROPONIN I < 0.012 ng/mL
[2018-03-13] MEDS ORDERED: GLUCAGON,HUMAN RECOMB 1 MG INJ IM PRN (14:03)
[2018-03-13] MEDS ORDERED: DEXTROSE 50%-WATER 25 GM/50 ML DISP.SYRIN IV PRN ×2 (14:03)
[2018-03-13] MEDS ORDERED: DEXTROSE 40% GEL 15 GM TUBE PO PRN ×2 (14:03)
[2018-03-13] MEDS ORDERED: CYCLOBENZAPRINE HCL 10 MG TABLET PO PRN (14:05)
[2018-03-13] MEDS ORDERED: ALPRAZOLAM 0.5 MG TABLET PO PRN (14:05)
--- NOTE | 2018-03-13 14:46 | PDOC H&P ---
History of Present Illness Admission Date/PCP: 03/13/18 11:00 AMBAR JOHN Patient complains of: Fall; Back pain; Low blood pressure History of Present Illness: JESU ORR is a 57 year old female known to my practice who presented to the ED via EMS service with listed complains; She reported feeling weak for couple of days, nausea with vomiting, epigastric pain that radiate to her back and bilateral mid level back pain. She claimed that upon waking up this morning she felt dizziness, lightheaded, and fell at home. Upon arrival of the EMS crew her blood pressure recorded with systolic component in the 70's. She was resuscitated in route to the ED and upon arrival her initial evaluation revealed systolic blood pressure in the 90's. There was reported sustained hyperkalemia. Patient claimed that she was treated with Kayexalate 2 days prior to her presentation without any bowel movement. Her last bowel movement was four days prior to admission. Her recent urinalysis and urine culture completed on 03/10/2018 did revealed meza sensitive E. coli with colonies over 100,000/mL. Her morbidities include Diabetes Mellitus Type 2, Hypertension, Congestive Heart Failure, Coronary Artery Disease s/p old [place] x 2 and stent angioplasty, Stroke without significant residual deficit, Right Kidney Cancer - s/p right nephrectomy, GERD, Arthritis, and Depression. She was advised hospitalization due to nausea with possible E.coli UTI, Hyperkalemia and acute on chronic CKD among her other morbidities. Past Medical History Cardiac Medical History: Reports: Congestive Heart Failure, Coronary Artery Disease, Myocardial Infarction - x2, Hypertension Denies: DVT Pulmonary Medical History: Reports: Pneumonia Denies: Asthma, Bronchitis, Chronic Obstructive Pulmonary Disease (COPD) Neurological Medical History: Denies: Seizures Endocrine Medical History: Reports: Diabetes Mellitus Type 1, Diabetes Mellitus Type 2 Renal/ Medical History: Reports: End Stage Renal Disease Malignancy Medical History: Reports: Renal (Kidney) Cancer - s/p right nephrectomy September, GI Medical History: Reports: Gastroesophageal Reflux Disease, Hiatal Hernia Denies: Crohn's Disease, Ulcerative Colitis Musculoskeltal Medical History: Reports: Arthritis - gout Skin Medical History: Denies: Psoriasis Psychiatric Medical History: Reports: Depression Traumatic Medical History: Denies: Traumatic Brain Injury Hematology: Reports: Anemia Infectious Medical History: Denies: Clostridium Difficile Past Surgical History Past Surgical History: Reports: Cardiac Catheterization - stent placement, Cholecystectomy, Coronary Stent - 2013, Orthopedic Surgery - left hand, left great toe amputation, Other - right nephrectomy for ca Denies: Hysterectomy Social History Smoking Status: Former Smoker Frequency of Alcohol Use: None Hx Recreational Drug Use: No Drugs: None Hx Prescription Drug Abuse: No - Advance Directive Resuscitation Status: Full Code Family History Family History: Hypertension Parental Family History Reviewed: Yes Children Family History Reviewed: Yes Sibling(s) Family History Reviewed.: Yes Medication/Allergy Home Medications: Alprazolam [Xanax 0.5 mg Tablet] 0.5 mg PO DAILYP PRN 03/13/18 Aspirin [Ecotrin 325 mg EC Tablet] 325 mg PO DAILY 03/13/18 Bupropion HCl [Bupropion Xl] 150 mg PO DAILY 03/13/18 Cyclobenzaprine HCl [Flexeril 10 mg Tablet] 10 mg PO QPMP PRN 03/13/18 Dexlansoprazole [Dexilant 60 mg Capsule] 60 mg PO DAILY 03/13/18 Docusate Sodium [Colace 100 mg Capsule] 200 mg PO QHS 03/13/18 Empagliflozin/Metformin HCl [Synjardy Xr 25-1,000 mg Tablet] 1 tab PO [id number] Ferrous Sulfate [Feosol 325 mg Tablet] 325 mg PO BID 03/13/18 Fluoxetine HCl [Prozac 20 mg Capsule] 60 mg PO QAM 03/13/18 Furosemide [Lasix 40 mg Tablet] 40 mg PO DAILY 03/13/18 Gabapentin [Neurontin] 600 mg PO Q8 03/13/18 Icosapent Ethyl [Vascepa] 2 gm PO BIDBS 03/13/18 Insulin Degludec [Tresiba Flextouch U-100] 80 unit SUBCUT QHS 03/13/18 Insulin Lispro [Humalog Kwikpen U-100] 0 unit SUBCUT ACHS PRN 03/13/18 Insulin Lispro [Humalog] 5 unit SUBCUT MEALS 03/13/18 Isosorbide Mononitrate [Isosorbide Mononitrate ER] 30 mg PO DAILY 03/13/18 Lidocaine [Lidoderm 5% (700 mg) Transdermal Patch] 1 patch TOP DAILY 03/13/18 Liraglutide [Victoza 2-Thong] 1.8 mg SUBCUT DAILY 03/13/18 Lisinopril [Prinivil] 20 mg PO DAILY 03/13/18 Metoprolol Succinate [Toprol XL 100 mg Tablet] 100 mg PO DAILY 03/13/18 Oxycodone HCl/Acetaminophen [Percocet 5-325 mg Tablet] 1 tab PO TIDP PRN Ranitidine HCl [Zantac 150 mg Tablet] 150 mg PO QHS 03/13/18 Ranolazine [Ranexa 500 mg Tab.sr] 500 mg PO Q12 03/13/18 Allergies/Adverse Reactions: sulfamethoxazole [From Bactrim] Allergy (Severe, Verified 03/13/18 07:40) rash trimethoprim [From Bactrim] Allergy (Severe, Verified 03/13/18 07:40) rash Penicillins Allergy (Unknown, Verified 03/13/18 07:40) Review of Systems Constitutional: PRESENT: weakness Eyes: ABSENT: visual disturbances Ears: ABSENT: hearing changes Nose, Mouth, and Throat: ABSENT: as per HPI, headache(s), mouth pain, sore throat, vertigo, other Cardiovascular: ABSENT: chest pain, dyspnea on exertion, edema, orthropnea, palpitations Respiratory: PRESENT: cough, sputum Gastrointestinal: PRESENT: abdominal pain - LUQ and epigastric regions as well as back mid level region bilaterally, heartburn, nausea Genitourinary: ABSENT: dysuria, hematuria Musculoskeletal: PRESENT: deformity - related to arthritis involvement of multiple joints. Integumentary: ABSENT: rash, wounds Neurological: ABSENT: abnormal gait, abnormal speech, confusion, dizziness, focal weakness, syncope Psychiatric: ABSENT: anxiety, depression, homidical ideation, suicidal ideation Endocrine: ABSENT: cold intolerance, heat intolerance, polydipsia, polyuria Hematologic/Lymphatic: ABSENT: easy bleeding, easy bruising, lymphadenopathy Allergic/Immunologic: ABSENT: seasonal rhinorrhea Physical Exam Vital Signs: Temp Pulse Resp BP Pulse Ox 97.4 F 76 20 126/66 H 97 03/13/18 13:30 03/13/18 13:30 03/13/18 13:30 03/13/18 13:30 03/13/18 13:30 Intake & Output 03/12/18 03/13/18 03/14/18 06:59 06:59 06:59 Output Total 300 Balance -300 General appearance: PRESENT: morbidly obese Head exam: PRESENT: atraumatic, normocephalic Eye exam: PRESENT: conjunctiva pink, EOMI, PERRLA. ABSENT: scleral icterus Ear exam: PRESENT: normal external ear exam Mouth exam: PRESENT: moist Neck exam: PRESENT: full ROM. ABSENT: carotid bruit, JVD, lymphadenopathy, thyromegaly Respiratory exam: PRESENT: clear to auscultation tarsha, decreased breath sounds - at lung bases Vascular exam: PRESENT: normal capillary refill. ABSENT: pallor GI/Abdominal exam: PRESENT: normal bowel sounds, soft, tenderness - bilateral CVA region, LUQ, and epigastric region. ABSENT: distended, guarding, mass, organolmegaly, rebound Rectal exam: PRESENT: deferred Extremities exam: ABSENT: pedal edema Musculoskeletal exam: PRESENT: tenderness - at multiple joint palpation sites Neurological exam: PRESENT: alert, awake, oriented to person, oriented to place , oriented to time, oriented to situation, CN II-XII grossly intact. ABSENT: motor sensory deficit Psychiatric exam: PRESENT: appropriate affect, normal mood. ABSENT: homicidal ideation, suicidal ideation Skin exam: PRESENT: dry, intact, warm. ABSENT: cyanosis, rash Results Laboratory Results: 03/13/18 11:49 Lactic Acid 1.4 Assessment & Plan - Diagnosis (1) Fall at home Qualifiers: Encounter type: initial encounter Qualified Code(s): W19.XXXA - Unspecified fall, initial encounter; Y92.009 - Unspecified place in unspecified non-institutional (private) residence as the place of occurrence of the external cause; Y92.009 - Unspecified place in unspecified non-institutional ( private) residence as the place of occurrence of the external cause Is this a current diagnosis for this admission?: Yes Plan: See admitting attending physician orders. (2) E. coli UTI (urinary tract infection) Is this a current diagnosis for this admission?: Yes Plan: See admitting attending physician orders. (3) Hyperkalemia Is this a current diagnosis for this admission?: Yes Plan: See admitting attending physician orders. (4) Acute kidney injury Is this a current diagnosis for this admission?: Yes Plan: See admitting attending physician orders. (5) Chronic kidney disease (CKD) stage G4/A1, severely decreased glomerular filtration rate (GFR) between 15-29 mL/min/1.73 square meter and albuminuria creatinine ratio less than 30 mg/g Is this a current diagnosis for this admission?: Yes Plan: See admitting attending physician orders. (6) Anemia in chronic kidney disease (CKD) Qualifiers: Chronic kidney disease stage: stage 4 (severe) Qualified Code(s): N18.4 - Chronic kidney disease, stage 4 (severe) Is this a current diagnosis for this admission?: Yes Plan: See admitting attending physician orders. (7) Diabetes mellitus type 2 in obese Is this a current diagnosis for this admission?: Yes Plan: See admitting attending physician orders. (8) Chronic CHF (congestive heart failure) Qualifiers: Heart failure type: unspecified Qualified Code(s): I50.9 - Heart failure, unspecified Is this a current diagnosis for this admission?: Yes Plan: See admitting attending physician orders. (9) Hypertension Qualifiers: Hypertension type: essential hypertension Qualified Code(s): I10 - Essential (primary) hypertension Is this a current diagnosis for this admission?: Yes Plan: See admitting attending physician orders. (10) CAD (coronary artery disease) Qualifiers: Coronary Disease-Associated Artery/Lesion type: [place] artery [place] vs. transplanted heart: inupiat heart Associated angina: with unspecified angina Qualified Code(s): I25.119 - Atherosclerotic heart disease of in[place] coronary artery with unspecified angina pectoris Is this a current diagnosis for this admission?: Yes Plan: See admitting attending physician orders. (11) Hyperlipidemia Qualifiers: Hyperlipidemia type: pure hypercholesterolemia Qualified Code(s): E78.00 - Pure hypercholesterolemia, unspecified Is this a current diagnosis for this admission?: Yes Plan: See admitting attending physician orders. (12) Mixed anxiety and depressive disorder Is this a current diagnosis for this admission?: Yes Plan: See admitting attending physician orders. (13) Morbid obesity with BMI of 45.0-49.9, adult Is this a current diagnosis for this admission?: Yes Plan: See admitting attending physician orders. - Time Time Spent: 50 to 70 Minutes Medications reviewed and adjusted accordingly: Yes Anticipated discharge: Home with Homehealth Within: Other - Inpatient Certification Based on my medical assessment, after consideration of the patient's comorbidities, presenting symptoms, or acuity I expect that the services needed warrant INPATIENT care.: Yes I certify that my determination is in accordance with my understanding of Medicare's requirements for reasonable and necessary INPATIENT services [42 CFR 412.3e].: Yes Medical Necessity: Need Close Monitoring Due to Risk of Patient Decompensation, Need For IV Fluids, Need For Continuous Telemetry Monitoring, Need for Pain Control, Need for IV Antibiotics, Risk of Complication if Not Cared For in Hospital Post Hospital Care: D/C Animal Skinner Documentation - Plan Summary Plan Summary: See admitting attending physician orders.
[2018-03-13] MEDS: OXYCODONE-ACETAMINOPHEN 5-325 MG TABLET PO PRN ×2 (15:09→23:10)
[2018-03-13] MEDS: HEPARIN SOD (PORCINE) 5,000 UNIT/ML 1 ML SYRINGE SUBCUT SCH ×2 (15:09→21:35)
[2018-03-13] MEDS: NORMAL SALINE 1000 ML 1,000 ML IV PRN (15:09)
[2018-03-13] MEDS: FERROUS SULFATE 325 MG TABLET PO SCH (17:04)
--- NOTE | 2018-03-13 17:15 | EKG REPORT ---
SEVERITY:- ABNORMAL ECG - SINUS RHYTHM FIRST DEGREE AV BLOCK LEFT VENTRICULAR HYPERTROPHY PROLONGED QT INTERVAL : Confirmed by: Willy Douglass MD 13-Mar-2018 17:15:10
[2018-03-13] MEDS: RANOLAZINE 500 MG TAB.SR.12H PO SCH (21:36)
[2018-03-13] MEDS: GABAPENTIN 300 MG CAPSULE PO SCH (21:36)
[2018-03-13] MEDS: DOCUSATE SODIUM 100 MG CAPSULE PO SCH (21:36)
[2018-03-13] MEDS: BUPROPION HCL 75 MG TABLET PO SCH (21:36)
[2018-03-13] MEDS: FAMOTIDINE 20 MG TABLET PO SCH (21:40)
[2018-03-13] MEDS ORDERED: INSULIN DEGLUDEC 80 UNIT SUBCUT SCH (22:00)
[2018-03-13] MEDS ORDERED: (PENDING PHARMACY ID) (Ranitidine Hcl [Zantac 150 Mg Tablet] 150 MG) PO SCH (22:00)
[2018-03-14] MEDS: NORMAL SALINE 1000 ML 1,000 ML IV PRN ×3 (00:37→22:32)
[2018-03-14 05:02] LABS: ABSOLUTE EOSINOPHILS # (AUTO) 0.8 10^3/uL (0.0-0.6); ABSOLUTE LYMPHOCYTES (AUTO) 2.7 10^3/uL (0.5-4.7); ABSOLUTE MONOCYTES (AUTO) 0.4 10^3/uL (0.1-1.4); ABSOLUTE NEUT (AUTO) 3.5 10^3/uL (1.7-8.2); BASOPHILS % (AUTO) 0.6 % (0-2); EOSINOPHILS % (AUTO) 10.7 % (0-6); HEMATOCRIT 28.1 % (36.0-47.0); HEMOGLOBIN 9.3 g/dL (12.0-15.5); LYMPHOCYTES % (AUTO) 36.2 % (13-45); MEAN CORPUSCULAR HEMOGLOBIN 28.2 pg (27.0-33.4); MEAN CORPUSCULAR HGB CONC 33.2 g/dL (32.0-36.0); MEAN CORPUSCULAR VOLUME 85 fl (80-97); MONOCYTES % (AUTO) 5.6 % (3-13); PLATELET COUNT 281 10^3/uL (150-450); RED CELL DISTRIBUTION WIDTH 14.7 % (11.5-14.0); SEGMENTED NEUTROPHILS % (AUTO) 46.9 % (42-78); TOTAL CELLS COUNTED % (AUTO) 100 %; WHITE BLOOD COUNT 7.4 10^3/uL (4.0-10.5)
[2018-03-14 05:20] LABS: ALANINE AMINOTRANSFERASE 28 U/L (9-52); ALBUMIN 3.1 g/dL (3.5-5.0); ALKALINE PHOSPHATASE 72 U/L (38-126); ANION GAP 5 (5-19); ASPARTATE AMINO TRANSFERASE 21 U/L (14-36); BILIRUBIN,DIRECT 0.3 mg/dL (0.0-0.4); BILIRUBIN,TOTAL 0.4 mg/dL (0.2-1.3); BLOOD UREA NITROGEN 35 mg/dL (7-20); CALCIUM 8.6 mg/dL (8.4-10.2); CARBON DIOXIDE 27 mmol/L (22-30); CHLORIDE 107 mmol/L (98-107); GLUCOSE 86 mg/dL (75-110); POTASSIUM 4.6 mmol/L (3.6-5.0); SODIUM 139.2 mmol/L (137-145); TOTAL PROTEIN 6.5 g/dL (6.3-8.2)
[2018-03-14] MEDS: GABAPENTIN 300 MG CAPSULE PO SCH ×2 (05:53→17:33)
[2018-03-14] MEDS: HEPARIN SOD (PORCINE) 5,000 UNIT/ML 1 ML SYRINGE SUBCUT SCH ×3 (05:53→22:28)
[2018-03-14] MEDS ORDERED: LANSOPRAZOLE 30 MG TAB.RAP.DR PO SCH (06:00)
[2018-03-14] MEDS: FLUOXETINE HCL 20 MG CAPSULE PO SCH (07:49)
[2018-03-14] MEDS: OXYCODONE-ACETAMINOPHEN 5-325 MG TABLET PO PRN ×2 (07:49→16:18)
[2018-03-14] MEDS ORDERED: (PENDING PHARMACY ID) (Bupropion Hcl [Bupropion Xl] 150 MG) PO SCH (10:00)
[2018-03-14] MEDS ORDERED: (PENDING PHARMACY ID) (Liraglutide [Victoza 2-Pak] 1.8 MG) SUBCUT SCH (10:00)
[2018-03-14] MEDS: FERROUS SULFATE 325 MG TABLET PO SCH ×2 (10:58→17:35)
[2018-03-14] MEDS: ISOSORBIDE MONONITRATE 30 MG TAB.ER.24H PO SCH (10:58)
[2018-03-14] MEDS: BUPROPION HCL 75 MG TABLET PO SCH ×2 (10:58→22:27)
[2018-03-14] MEDS: LIDOCAINE 5% (700 MG) TRANSDERMAL ADH..PATCH TOP SCH (10:59)
[2018-03-14] MEDS: RANOLAZINE 500 MG TAB.SR.12H PO SCH ×2 (10:59→22:27)
[2018-03-14] MEDS: METOPROLOL SUCCINATE 50 MG TAB.SR.24H PO SCH (10:59)
[2018-03-14] MEDS: INSULIN LISPRO 100 UNIT/ML 3 ML VIAL SUBCUT PRN ×3 (12:29→22:27)
--- NOTE | 2018-03-14 13:37 | PDOC PROGRESS REPORT ---
Subjective Progress Note for:: 03/14/18 Subjective:: Patient reported increase pain over right scapula upper region since her fall prior to admission. She denied any chest pain or difficulty with breathing. No fever or chills. No nausea, vomiting or abdominal pain. Reason For Visit: HYPOTENSION,UTI,DEHYDREATION,ACUTE KIDNEY INJURY Physical Exam Vital Signs: Temp Pulse Resp BP Pulse Ox 98.0 F 78 17 127/66 H 97 03/14/18 11:05 03/14/18 11:05 03/14/18 11:05 03/14/18 11:05 03/14/18 11:05 Intake & Output 03/13/18 03/14/18 03/15/18 06:59 06:59 06:59 Intake Total 2497 1300 Output Total 300 Balance 2197 1300 Weight 132.6 kg General appearance: PRESENT: morbidly obese Head exam: PRESENT: atraumatic, normocephalic Eye exam: PRESENT: conjunctiva pink, EOMI, PERRLA. ABSENT: scleral icterus Ear exam: PRESENT: normal external ear exam Mouth exam: PRESENT: moist Respiratory exam: PRESENT: clear to auscultation tarsha, decreased breath sounds - at lung bases Cardiovascular exam: PRESENT: RRR. ABSENT: diastolic murmur, rubs, systolic murmur Vascular exam: ABSENT: pallor GI/Abdominal exam: PRESENT: normal bowel sounds, soft. ABSENT: distended, guarding, mass, organolmegaly, rebound, tenderness Extremities exam: ABSENT: pedal edema Musculoskeletal exam: PRESENT: tenderness - to palpation over right scapula region Neurological exam: PRESENT: alert, awake, oriented to person, oriented to place , oriented to time, oriented to situation, CN II-XII grossly intact. ABSENT: motor sensory deficit Psychiatric exam: PRESENT: appropriate affect, normal mood. ABSENT: homicidal ideation, suicidal ideation Skin exam: PRESENT: dry, intact, warm. ABSENT: cyanosis, rash Results Laboratory Results: 03/14/18 04:39 03/14/18 04:39 03/14/18 03/14/18 04:39 04:39 WBC 7.4 RBC 3.30 L Hgb 9.3 L Hct 28.1 L MCV 85 MCH 28.2 MCHC 33.2 RDW 14.7 H Plt Count 281 Seg Neutrophils % 46.9 Lymphocytes % 36.2 Monocytes % 5.6 Eosinophils % 10.7 H Basophils % 0.6 Absolute Neutrophils 3.5 Absolute Lymphocytes 2.7 Absolute Monocytes 0.4 Absolute Eosinophils 0.8 H Absolute Basophils 0.0 Sodium 139.2 Potassium 4.6 Chloride 107 Carbon Dioxide 27 Anion Gap 5 BUN 35 H Creatinine 2.04 H Est GFR ( Amer) 31 L Est GFR (Non-Af Amer) 25 L Glucose 86 Calcium 8.6 Total Bilirubin 0.4 AST 21 ALT 28 Alkaline Phosphatase 72 Total Protein 6.5 Albumin 3.1 L Assessment & Plan - Diagnosis (1) Fall at home Qualifiers: Encounter type: initial encounter Qualified Code(s): W19.XXXA - Unspecified fall, initial encounter; Y92.009 - Unspecified place in unspecified non-institutional (private) residence as the place of occurrence of the external cause; Y92.009 - Unspecified place in unspecified non-institutional ( private) residence as the place of occurrence of the external cause Is this a current diagnosis for this admission?: Yes (2) E. coli UTI (urinary tract infection) Is this a current diagnosis for this admission?: Yes (3) Hyperkalemia Is this a current diagnosis for this admission?: Yes (4) Acute kidney injury Is this a current diagnosis for this admission?: Yes (5) Chronic kidney disease (CKD) stage G4/A1, severely decreased glomerular filtration rate (GFR) between 15-29 mL/min/1.73 square meter and albuminuria creatinine ratio less than 30 mg/g Is this a current diagnosis for this admission?: Yes (6) Anemia in chronic kidney disease (CKD) Qualifiers: Chronic kidney disease stage: stage 4 (severe) Qualified Code(s): N18.4 - Chronic kidney disease, stage 4 (severe) Is this a current diagnosis for this admission?: Yes (7) Diabetes mellitus type 2 in obese Is this a current diagnosis for this admission?: Yes (8) Chronic CHF (congestive heart failure) Qualifiers: Heart failure type: unspecified Qualified Code(s): I50.9 - Heart failure, unspecified Is this a current diagnosis for this admission?: Yes (9) Hypertension Qualifiers: Hypertension type: essential hypertension Qualified Code(s): I10 - Essential (primary) hypertension Is this a current diagnosis for this admission?: Yes (10) CAD (coronary artery disease) Qualifiers: Coronary Disease-Associated Artery/Lesion type: [place] artery [place] vs. transplanted heart: [place] heart Associated angina: with unspecified angina Qualified Code(s): I25.119 - Atherosclerotic heart disease of [place] coronary artery with unspecified angina pectoris Is this a current diagnosis for this admission?: Yes (11) Hyperlipidemia Qualifiers: Hyperlipidemia type: pure hypercholesterolemia Qualified Code(s): E78.00 - Pure hypercholesterolemia, unspecified Is this a current diagnosis for this admission?: Yes (12) Mixed anxiety and depressive disorder Is this a current diagnosis for this admission?: Yes (13) Morbid obesity with BMI of 45.0-49.9, adult Is this a current diagnosis for this admission?: Yes - Time Time Spent with patient: 25-34 minutes Medications reviewed and adjusted accordingly: Yes Anticipated discharge: Home with Homehealth Within: Other - Inpatient Certification Based on my medical assessment, after consideration of the patient's comorbidities, presenting symptoms, or acuity I expect that the services needed warrant INPATIENT care.: Yes I certify that my determination is in accordance with my understanding of Medicare's requirements for reasonable and necessary INPATIENT services [42 CFR 412.3e].: Yes Medical Necessity: Need Close Monitoring Due to Risk of Patient Decompensation, Need For IV Fluids, Need For Continuous Telemetry Monitoring, Need for IV Antibiotics, Risk of Complication if Not Cared For in Hospital Post Hospital Care: D/C Academic Adviser Documentation - Plan Summary Plan Summary: Continue current medication management. KPAD topically as needed. Follow up on nephrology consult request.
--- NOTE | 2018-03-14 21:16 | PDOC CONSULTATION ---
Consultation Consult Date: 03/14/18 Consult reason:: acute on CKD stage 4 with hyperkalemia History of Present Illness Admission Date/PCP: 03/13/18 11:00 AMBAR LOPEZ History of Present Illness: JESU ORR is a 57 year old female with history of Diabetes Mellitus Type 2, Hypertension, Congestive Heart Failure, Coronary Artery Disease s/p old HI x 2 and stent angioplasty, Stroke without significant residual deficit, Right Kidney Cancer - s/p right nephrectomy, GERD presented to the ED via EMS service with listed complains. She reported feeling weak for couple of days, nausea with vomiting, epigastric pain that radiate to her back. She claimed that upon waking up yesterday morning she felt dizziness, lightheaded, and fell at home. Upon arrival of the EMS crew her blood pressure recorded with systolic component in the 70's. She was given fluids by the EMS crew in route to the ED and upon arrival her initial evaluation revealed systolic blood pressure in the 90's. In the ED labs were drawn and EKG was done. The labs showed a creatinine of 3.2 and an elevated potassium. EKG was with in normal limits. UA showed possible infection and she was complaining of dysuria. She was started on levofloxacin. She was also given fluids and bp medications were held. On examination the patient was feeling better but was still having some nausea with abdominal pain about 30 minutes after eating. She denies chest pain, SOB, fevers or chills. Prior to arrival to the ED she was found Tuesday to have an elevated potassium with labs at my office. She was given kayexelate but did not have a bowel movement for two days. Past Medical History Cardiac Medical History: Reports: Coronary Artery Disease, Myocardial Infarction - x2 Denies: DVT Pulmonary Medical History: Reports: Pneumonia Denies: Asthma, Bronchitis, Chronic Obstructive Pulmonary Disease (COPD) Neurological Medical History: Denies: Seizures Endocrine Medical History: Reports: Diabetes Mellitus Type 1, Diabetes Mellitus Type 2 Renal/ Medical History: Reports: Chronic Kidney Disease Stage IV, End Stage Renal Disease Malignancy Medical History: Reports: Renal (Kidney) Cancer - s/p right nephrectomy September, GI Medical History: Reports: Gastroesophageal Reflux Disease, Hiatal Hernia Denies: Crohn's Disease, Ulcerative Colitis Musculoskeltal Medical History: Reports: Arthritis - gout Skin Medical History: Denies: Psoriasis Psychiatric Medical History: Reports: Depression Traumatic Medical History: Denies: Traumatic Brain Injury Infectious Medical History: Denies: Clostridium Difficile Past Surgical History Past Surgical History: Reports: Cardiac Catheterization - stent placement, Cholecystectomy, Coronary Stent - 2013, Orthopedic Surgery - left hand, left great toe amputation, Other - right nephrectomy for ca Denies: Hysterectomy Social History Smoking Status: Former Smoker Frequency of Alcohol Use: None Hx Recreational Drug Use: No Drugs: None Hx Prescription Drug Abuse: No - Advance Directive Resuscitation Status: Full Code Family History Parental Family History Reviewed: No Children Family History Reviewed: NA Sibling(s) Family History Reviewed.: NA Medication/Allergy Home Medications: Alprazolam [Xanax 0.5 mg Tablet] 0.5 mg PO DAILYP PRN 03/13/18 Aspirin [Ecotrin 325 mg EC Tablet] 325 mg PO DAILY 03/13/18 Bupropion HCl [Bupropion Xl] 150 mg PO DAILY 03/13/18 Cyclobenzaprine HCl [Flexeril 10 mg Tablet] 10 mg PO QPMP PRN 03/13/18 Dexlansoprazole [Dexilant 60 mg Capsule] 60 mg PO DAILY 03/13/18 Docusate Sodium [Colace 100 mg Capsule] 200 mg PO QHS 03/13/18 Empagliflozin/Metformin HCl [Synjardy Xr 25-1,000 mg Tablet] 1 tab PO [id number] Ferrous Sulfate [Feosol 325 mg Tablet] 325 mg PO BID 03/13/18 Fluoxetine HCl [Prozac 20 mg Capsule] 60 mg PO QAM 03/13/18 Furosemide [Lasix 40 mg Tablet] 40 mg PO DAILY 03/13/18 Gabapentin [Neurontin] 600 mg PO Q8 03/13/18 Icosapent Ethyl [Vascepa] 2 gm PO BIDBS 03/13/18 Insulin Degludec [Tresiba Flextouch U-100] 80 unit SUBCUT QHS 03/13/18 Insulin Lispro [Humalog Kwikpen U-100] 0 unit SUBCUT ACHS PRN 03/13/18 Insulin Lispro [Humalog] 5 unit SUBCUT MEALS 03/13/18 Isosorbide Mononitrate [Isosorbide Mononitrate ER] 30 mg PO DAILY 03/13/18 Lidocaine [Lidoderm 5% (700 mg) Transdermal Patch] 1 patch TOP DAILY 03/13/18 Liraglutide [Victoza 2-Thong] 1.8 mg SUBCUT DAILY 03/13/18 Lisinopril [Prinivil] 20 mg PO DAILY 03/13/18 Metoprolol Succinate [Toprol XL 100 mg Tablet] 100 mg PO DAILY 03/13/18 Oxycodone HCl/Acetaminophen [Percocet 5-325 mg Tablet] 1 tab PO TIDP PRN Ranitidine HCl [Zantac 150 mg Tablet] 150 mg PO QHS 03/13/18 Ranolazine [Ranexa 500 mg Tab.sr] 500 mg PO Q12 03/13/18 Trazodone HCl [Trazodone HCl] 1 tab PO QHS PRN MDD 100 mg 03/14/18 Allergies/Adverse Reactions: sulfamethoxazole [From Bactrim] Allergy (Severe, Verified 03/13/18 07:40) rash trimethoprim [From Bactrim] Allergy (Severe, Verified 03/13/18 07:40) rash Penicillins Allergy (Unknown, Verified 03/13/18 07:40) Review of Systems Constitutional: PRESENT: anorexia, weakness. ABSENT: chills, fever(s), headache (s) Eyes: ABSENT: visual disturbances Cardiovascular: PRESENT: chest pain. ABSENT: dyspnea on exertion, edema, orthropnea, palpitations Respiratory: ABSENT: cough, dyspnea, sputum Gastrointestinal: PRESENT: abdominal pain, nausea. ABSENT: constipation, diarrhea, vomiting Genitourinary: PRESENT: dysuria. ABSENT: difficulty urinating, nocturia Musculoskeletal: PRESENT: muscle weakness. ABSENT: back pain Neurological: PRESENT: weakness. ABSENT: confusion, dizziness, focal weakness, numbness Psychiatric: ABSENT: anxiety, depression Physical Exam Vital Signs: Temp Pulse Resp BP Pulse Ox 98.7 F 81 19 118/62 97 03/14/18 19:51 03/14/18 19:51 03/14/18 19:51 03/14/18 19:51 03/14/18 19:51 Intake & Output 03/13/18 03/14/18 03/15/18 06:59 06:59 06:59 Intake Total 2497 1500 Output Total 300 Balance 2197 1500 Weight 132.6 kg General appearance: PRESENT: no acute distress, well-developed, well-nourished Mouth exam: PRESENT: moist, neck supple Neck exam: PRESENT: full ROM. ABSENT: JVD Respiratory exam: PRESENT: clear to auscultation tarsha. ABSENT: accessory muscle use, crackles, rales, rhonchi, wheezes Cardiovascular exam: PRESENT: RRR, +S1, +S2 GI/Abdominal exam: PRESENT: soft. ABSENT: tenderness Extremities exam: ABSENT: pedal edema, tenderness, +1 edema, +2 edema Musculoskeletal exam: PRESENT: normal inspection. ABSENT: tenderness Neurological exam: PRESENT: alert, awake, oriented to person, oriented to place , oriented to time, oriented to situation Skin exam: PRESENT: dry, intact, warm Results Laboratory Results: 03/14/18 04:39 03/14/18 04:39 03/14/18 03/14/18 04:39 04:39 WBC 7.4 RBC 3.30 L Hgb 9.3 L Hct 28.1 L MCV 85 MCH 28.2 MCHC 33.2 RDW 14.7 H Plt Count 281 Seg Neutrophils % 46.9 Lymphocytes % 36.2 Monocytes % 5.6 Eosinophils % 10.7 H Basophils % 0.6 Absolute Neutrophils 3.5 Absolute Lymphocytes 2.7 Absolute Monocytes 0.4 Absolute Eosinophils 0.8 H Absolute Basophils 0.0 Sodium 139.2 Potassium 4.6 Chloride 107 Carbon Dioxide 27 Anion Gap 5 BUN 35 H Creatinine 2.04 H Est GFR ( Amer) 31 L Est GFR (Non-Af Amer) 25 L Glucose 86 Calcium 8.6 Total Bilirubin 0.4 AST 21 ALT 28 Alkaline Phosphatase 72 Total Protein 6.5 Albumin 3.1 L Assessment & Plan - Diagnosis (1) Acute kidney injury Is this a current diagnosis for this admission?: Yes Plan: nonoliguric, due to dehydration with other factor including her current UTI and moments of hypotension prior to admission. continue with normal saline at 75mL/ h and levofloxacin at current dose. No current indication for [employer] PRESIDENT [employer]ER. At this point she is at baseline and is clear for discharge from nephrology's standpoint. (2) Dehydration Plan: Continue with normal saline at 75mL/hour (3) E. coli UTI (urinary tract infection) Is this a current diagnosis for this admission?: Yes Plan: on levofloxacin, currently dosed to correct GFR (4) Fall at home Qualifiers: Encounter type: initial encounter Qualified Code(s): W19.XXXA - Unspecified fall, initial encounter; Y92.009 - Unspecified place in unspecified non-institutional (private) residence as the place of occurrence of the external cause; Y92.009 - Unspecified place in unspecified non-institutional ( private) residence as the place of occurrence of the external cause Is this a current diagnosis for this admission?: Yes (5) Hypotension Qualifiers: Hypotension type: unspecified hypotension type Qualified Code(s): I95.9 - Hypotension, unspecified Plan: most likely due to dehydration and taking bp meds when dehydrated. (6) Anemia in chronic kidney disease (CKD) Qualifiers: Chronic kidney disease stage: stage 4 (severe) Qualified Code(s): N18.4 - Chronic kidney disease, stage 4 (severe) Is this a current diagnosis for this admission?: Yes Plan: will get anemia labs. Patient may need procrit if iron levels are normal (7) Hyperkalemia Is this a current diagnosis for this admission?: Yes Plan: currently stable (8) Hypertension Qualifiers: Hypertension type: essential hypertension Qualified Code(s): I10 - Essential (primary) hypertension Is this a current diagnosis for this admission?: Yes Plan: currently bp medications are on hold (9) Diabetes mellitus type 2 in obese Is this a current diagnosis for this admission?: Yes (10) Abdominal pain Qualifiers: Abdominal location: right lower quadrant Qualified Code(s): R10.31 - Right lower quadrant pain Plan: differential includes chronic mesenteric ischemia, constipation with possible obstruction and gastroparesis - Notes Notes: case was discussed with Dr. Kiran.
[2018-03-14] MEDS: FAMOTIDINE 20 MG TABLET PO SCH (22:27)
[2018-03-14] MEDS: DOCUSATE SODIUM 100 MG CAPSULE PO SCH (22:27)
[2018-03-14] MEDS: TRAZODONE HCL 50 MG TABLET PO SCH (22:27)
[2018-03-14] MEDS: PHARMACY COMMUNICATION ORDER MC SCH (22:57)
[2018-03-15] MEDS: OXYCODONE-ACETAMINOPHEN 5-325 MG TABLET PO PRN ×3 (02:25→21:28)
[2018-03-15] MEDS: LANSOPRAZOLE 30 MG TAB.RAP.DR PO SCH (05:53)
[2018-03-15] MEDS: HEPARIN SOD (PORCINE) 5,000 UNIT/ML 1 ML SYRINGE SUBCUT SCH ×3 (05:53→21:29)
[2018-03-15] MEDS: GABAPENTIN 300 MG CAPSULE PO SCH ×2 (05:53→17:12)
--- NOTE | 2018-03-15 08:53 | PDOC PROGRESS REPORT ---
Subjective Progress Note for:: 03/15/18 Subjective:: She denied any chest pain or difficulty with breathing. No fever or chills. No nausea, vomiting or abdominal pain. Patient reported improvement in her pain level. Reason For Visit: FALL AT HOME,E COLI UTI,HYPERKALEMIA,ACUTE ON Physical Exam Vital Signs: Temp Pulse Resp BP Pulse Ox 97.6 F 74 17 127/71 H 97 03/15/18 07:09 03/15/18 07:09 03/15/18 07:09 03/15/18 07:09 03/15/18 07:09 Intake & Output 03/14/18 03/15/18 03/16/18 06:59 06:59 06:59 Intake Total 2497 2500 Output Total 300 Balance 2197 2500 Weight 132.6 kg 131.1 kg Physical Exam: General appearance: PRESENT: morbidly obese Head exam: PRESENT: atraumatic, normocephalic Eye exam: PRESENT: conjunctiva pink, EOMI, PERRLA. ABSENT: scleral icterus Ear exam: PRESENT: normal external ear exam Mouth exam: PRESENT: moist Respiratory exam: PRESENT: clear to auscultation tarsha, decreased breath sounds - at lung bases Cardiovascular exam: PRESENT: RRR. ABSENT: diastolic murmur, rubs, systolic murmur Vascular exam: ABSENT: pallor GI/Abdominal exam: PRESENT: normal bowel sounds, soft. ABSENT: distended, guarding, mass, organomegaly, rebound, tenderness Extremities exam: ABSENT: pedal edema Musculoskeletal exam: PRESENT: comparatively improving tenderness - to palpation over right scapula region Neurological exam: PRESENT: alert, awake, oriented to person, oriented to place , oriented to time, oriented to situation, CN II-XII grossly intact. ABSENT: motor sensory deficit Psychiatric exam: PRESENT: appropriate affect, normal mood. ABSENT: homicidal ideation, suicidal ideation Skin exam: PRESENT: dry, intact, warm. ABSENT: cyanosis, rash Results Laboratory Results: 03/14/18 04:39 03/14/18 04:39 Assessment & Plan - Diagnosis (1) Fall at home Qualifiers: Encounter type: initial encounter Qualified Code(s): W19.XXXA - Unspecified fall, initial encounter; Y92.009 - Unspecified place in unspecified non-institutional (private) residence as the place of occurrence of the external cause; Y92.009 - Unspecified place in unspecified non-institutional ( private) residence as the place of occurrence of the external cause Is this a current diagnosis for this admission?: Yes (2) E. coli UTI (urinary tract infection) Is this a current diagnosis for this admission?: Yes Plan: Transition to oral Levofloxacin 500mg po daily. If patient remain afebrile consider discharge home in am. (3) Hyperkalemia Is this a current diagnosis for this admission?: Yes (4) Acute kidney injury Is this a current diagnosis for this admission?: Yes (5) Chronic kidney disease (CKD) stage G4/A1, severely decreased glomerular filtration rate (GFR) between 15-29 mL/min/1.73 square meter and albuminuria creatinine ratio less than 30 mg/g Is this a current diagnosis for this admission?: Yes (6) Anemia in chronic kidney disease (CKD) Qualifiers: Chronic kidney disease stage: stage 4 (severe) Qualified Code(s): N18.4 - Chronic kidney disease, stage 4 (severe) Is this a current diagnosis for this admission?: Yes (7) Diabetes mellitus type 2 in obese Is this a current diagnosis for this admission?: Yes (8) Chronic CHF (congestive heart failure) Qualifiers: Heart failure type: unspecified Qualified Code(s): I50.9 - Heart failure, unspecified Is this a current diagnosis for this admission?: Yes (9) Hypertension Qualifiers: Hypertension type: essential hypertension Qualified Code(s): I10 - Essential (primary) hypertension Is this a current diagnosis for this admission?: Yes (10) CAD (coronary artery disease) Qualifiers: Coronary Disease-Associated Artery/Lesion type: [place] artery [place] vs. transplanted heart: [place] heart Associated angina: with unspecified angina Qualified Code(s): I25.119 - Atherosclerotic heart disease of [place] coronary artery with unspecified angina pectoris Is this a current diagnosis for this admission?: Yes (11) Hyperlipidemia Qualifiers: Hyperlipidemia type: pure hypercholesterolemia Qualified Code(s): E78.00 - Pure hypercholesterolemia, unspecified Is this a current diagnosis for this admission?: Yes (12) Mixed anxiety and depressive disorder Is this a current diagnosis for this admission?: Yes (13) Morbid obesity with BMI of 45.0-49.9, adult Is this a current diagnosis for this admission?: Yes - Time Time Spent with patient: 25-34 minutes Medications reviewed and adjusted accordingly: Yes Anticipated discharge: Home Within: within 24 hours - Inpatient Certification Based on my medical assessment, after consideration of the patient's comorbidities, presenting symptoms, or acuity I expect that the services needed warrant INPATIENT care.: Yes I certify that my determination is in accordance with my understanding of Medicare's requirements for reasonable and necessary INPATIENT services [42 CFR 412.3e].: Yes Medical Necessity: Need Close Monitoring Due to Risk of Patient Decompensation, Need For IV Fluids, Need For Continuous Telemetry Monitoring, Need for IV Antibiotics, Risk of Complication if Not Cared For in Hospital Post Hospital Care: D/C Vision Care Associate Documentation - Plan Summary Plan Summary: See attending physician orders.
[2018-03-15] MEDS: FERROUS SULFATE 325 MG TABLET PO SCH ×2 (09:13→17:13)
[2018-03-15] MEDS: RANOLAZINE 500 MG TAB.SR.12H PO SCH ×2 (09:13→21:28)
[2018-03-15] MEDS: METOPROLOL SUCCINATE 50 MG TAB.SR.24H PO SCH (09:13)
[2018-03-15] MEDS: BUPROPION HCL 75 MG TABLET PO SCH ×2 (09:13→21:28)
[2018-03-15] MEDS: LIDOCAINE 5% (700 MG) TRANSDERMAL ADH..PATCH TOP SCH (09:13)
[2018-03-15] MEDS: ISOSORBIDE MONONITRATE 30 MG TAB.ER.24H PO SCH (09:13)
[2018-03-15] MEDS: FLUOXETINE HCL 20 MG CAPSULE PO SCH (09:13)
[2018-03-15] MEDS ORDERED: LEVOFLOXACIN 500 MG/D5W RTU 500 MG/100 ML RTUPB IV SCH (10:00)
[2018-03-15] MEDS: INSULIN DETEMIR 100 UNIT/ML 3 ML PEN SUBCUT SCH ×2 (10:16→21:29)
[2018-03-15] MEDS: NORMAL SALINE 1000 ML 1,000 ML IV PRN (12:00)
[2018-03-15] MEDS: INSULIN LISPRO 100 UNIT/ML 3 ML VIAL SUBCUT PRN ×3 (12:03→21:29)
[2018-03-15 12:48] LABS: ANION GAP 12 (5-19); BLOOD UREA NITROGEN 22 mg/dL (7-20); CALCIUM 9.5 mg/dL (8.4-10.2); CARBON DIOXIDE 23 mmol/L (22-30); CHLORIDE 105 mmol/L (98-107); POTASSIUM 5.1 mmol/L (3.6-5.0); SODIUM 139.6 mmol/L (137-145)
[2018-03-15 12:49] LABS: GLUCOSE 185 mg/dL (75-110)
[2018-03-15] MEDS ORDERED: LEVOFLOXACIN 500 MG TABLET PO SCH (14:00)
--- NOTE | 2018-03-15 14:05 | PDOC PROGRESS REPORT ---
Subjective Progress Note for:: 03/15/18 Subjective:: Patient was sitting up in her chair at the time of examination. She is still having some pain on the right side of her back where she hit it when she feel. Other than that pain she is ready to get out of the hospital. She denies chest pain, SOB, n/v/d/c. Reason For Visit: FALL AT HOME,E COLI UTI,HYPERKALEMIA,ACUTE ON Physical Exam Vital Signs: Temp Pulse Resp BP Pulse Ox 98.0 F 79 17 141/89 H 98 03/15/18 11:22 03/15/18 11:22 03/15/18 11:22 03/15/18 11:22 03/15/18 11:22 Intake & Output 03/14/18 03/15/18 03/16/18 06:59 06:59 06:59 Intake Total 2497 2500 2337 Output Total 300 3 Balance 2197 2500 2334 Weight 132.6 kg 131.1 kg General appearance: PRESENT: no acute distress, obese, well-developed, well- nourished Mouth exam: PRESENT: moist. ABSENT: neck supple Neck exam: PRESENT: full ROM. ABSENT: JVD Respiratory exam: PRESENT: clear to auscultation tarsha. ABSENT: accessory muscle use, rales, rhonchi, wheezes Cardiovascular exam: PRESENT: RRR, +S1, +S2 Extremities exam: ABSENT: pedal edema, tenderness, +1 edema, +2 edema Musculoskeletal exam: PRESENT: tenderness - -right lower back Neurological exam: PRESENT: alert, awake, oriented to person, oriented to place , oriented to time, oriented to situation Psychiatric exam: PRESENT: appropriate affect, normal mood Skin exam: PRESENT: dry, intact, warm. ABSENT: cyanosis Results Laboratory Results: 03/14/18 04:39 03/15/18 12:02 03/15/18 12:02 Sodium 139.6 Potassium 5.1 H Chloride 105 Carbon Dioxide 23 Anion Gap 12 BUN 22 H Creatinine 1.74 H Est GFR ( Amer) 37 L Est GFR (Non-Af Amer) 30 L Glucose 185 H Calcium 9.5 Assessment & Plan - Diagnosis (1) Acute kidney injury Is this a current diagnosis for this admission?: Yes Plan: improving, currently at baseline. Will look to discontinue the normal saline. At this point and time she is safe from nephrology's standpoint for discharge. Recommend follow up with Dr. Kiarn in 10 to 14 days. (2) Dehydration Plan: stopping fluids and letting her orally rehydrate (3) E. coli UTI (urinary tract infection) Is this a current diagnosis for this admission?: Yes Plan: on levofloxacin (4) Fall at home Qualifiers: Encounter type: initial encounter Qualified Code(s): W19.XXXA - Unspecified fall, initial encounter; Y92.009 - Unspecified place in unspecified non-institutional (private) residence as the place of occurrence of the external cause; Y92.009 - Unspecified place in unspecified non-institutional ( private) residence as the place of occurrence of the external cause Is this a current diagnosis for this admission?: Yes (5) Hypotension Qualifiers: Hypotension type: unspecified hypotension type Qualified Code(s): I95.9 - Hypotension, unspecified Plan: resolved (6) Anemia in chronic kidney disease (CKD) Qualifiers: Chronic kidney disease stage: stage 4 (severe) Qualified Code(s): N18.4 - Chronic kidney disease, stage 4 (severe) Is this a current diagnosis for this admission?: Yes (7) Hyperkalemia Is this a current diagnosis for this admission?: Yes Plan: needs to be on a low potassium diet, hospital is leaving several high potassium foods on the tray (8) Hypertension Qualifiers: Hypertension type: essential hypertension Qualified Code(s): I10 - Essential (primary) hypertension Is this a current diagnosis for this admission?: Yes Plan: medication is going to need to be slowly restarted if bp keeps elevating. (9) Diabetes mellitus type 2 in obese Is this a current diagnosis for this admission?: Yes (10) Abdominal pain Qualifiers: Abdominal location: right lower quadrant Qualified Code(s): R10.31 - Right lower quadrant pain
[2018-03-15] MEDS: TRAZODONE HCL 50 MG TABLET PO SCH (21:28)
[2018-03-15] MEDS: FAMOTIDINE 20 MG TABLET PO SCH (21:28)
[2018-03-15] MEDS: DOCUSATE SODIUM 100 MG CAPSULE PO SCH (21:28)
[2018-03-15] MEDS: PHARMACY COMMUNICATION ORDER MC SCH (21:35)
[2018-03-16] MEDS: FLUOXETINE HCL 20 MG CAPSULE PO SCH ×2 (08:40→09:08)
[2018-03-16] MEDS: LANSOPRAZOLE 30 MG TAB.RAP.DR PO SCH (09:08)
[2018-03-16] MEDS: GABAPENTIN 300 MG CAPSULE PO SCH ×2 (09:08→17:35)
[2018-03-16] MEDS: HEPARIN SOD (PORCINE) 5,000 UNIT/ML 1 ML SYRINGE SUBCUT SCH ×2 (09:08→13:28)
[2018-03-16 09:19] LABS: ABSOLUTE RETICS # 0.105 10^6/uL (0.028-0.122); HEMATOCRIT 29.8 % (36.0-47.0); HEMOGLOBIN 9.7 g/dL (12.0-15.5); MEAN CORPUSCULAR HEMOGLOBIN 27.9 pg (27.0-33.4); MEAN CORPUSCULAR HGB CONC 32.4 g/dL (32.0-36.0); MEAN CORPUSCULAR VOLUME 86 fl (80-97); PLATELET COUNT 307 10^3/uL (150-450); RED BLOOD COUNT 3.46 10^6/uL (3.72-5.28); RED CELL DISTRIBUTION WIDTH 14.7 % (11.5-14.0); RETICULOCYTE COUNT (AUTO) 3.02 % (0.66-2.85); WHITE BLOOD COUNT 9.3 10^3/uL (4.0-10.5)
[2018-03-16] MEDS: INSULIN DETEMIR 100 UNIT/ML 3 ML PEN SUBCUT SCH (09:22)
[2018-03-16] MEDS: METOPROLOL SUCCINATE 50 MG TAB.SR.24H PO SCH (09:27)
[2018-03-16] MEDS: ISOSORBIDE MONONITRATE 30 MG TAB.ER.24H PO SCH (09:27)
[2018-03-16] MEDS: FERROUS SULFATE 325 MG TABLET PO SCH ×2 (09:27→17:35)
[2018-03-16] MEDS: BUPROPION HCL 75 MG TABLET PO SCH (09:27)
[2018-03-16] MEDS: RANOLAZINE 500 MG TAB.SR.12H PO SCH (09:28)
[2018-03-16] MEDS: LIDOCAINE 5% (700 MG) TRANSDERMAL ADH..PATCH TOP SCH (09:28)
[2018-03-16 09:30] LABS: ANION GAP 9 (5-19); BLOOD UREA NITROGEN 21 mg/dL (7-20); CALCIUM 9.6 mg/dL (8.4-10.2); CARBON DIOXIDE 24 mmol/L (22-30); CHLORIDE 106 mmol/L (98-107); FOLATE 6.44 ng/mL (>2.76); GLUCOSE 165 mg/dL (75-110); POTASSIUM 4.9 mmol/L (3.6-5.0); SODIUM 138.9 mmol/L (137-145)
[2018-03-16] MEDS: INSULIN LISPRO 100 UNIT/ML 3 ML VIAL SUBCUT PRN ×3 (10:28→16:35)
[2018-03-16] MEDS: OXYCODONE-ACETAMINOPHEN 5-325 MG TABLET PO PRN (12:03)
[2018-03-16] MEDS ORDERED: LEVOFLOXACIN 500 MG TABLET PO SCH (14:00)
--- NOTE | 2018-03-16 18:34 | PDOC DISCHARGE SUMMARY ---
General - Admit/Disc Date/PCP Admission Date/Primary Care Provider: 03/13/18 11:00 AMBAR LOPEZ Discharge Date: 03/16/18 - Discharge Diagnosis (1) Fall at home Is this a current diagnosis for this admission?: Yes (2) E. coli UTI (urinary tract infection) Is this a current diagnosis for this admission?: Yes (3) Hyperkalemia Is this a current diagnosis for this admission?: Yes (4) Acute kidney injury Is this a current diagnosis for this admission?: Yes (5) Chronic kidney disease (CKD) stage G4/A1, severely decreased glomerular filtration rate (GFR) between 15-29 mL/min/1.73 square meter and albuminuria creatinine ratio less than 30 mg/g Is this a current diagnosis for this admission?: Yes (6) Anemia in chronic kidney disease (CKD) Is this a current diagnosis for this admission?: Yes (7) Diabetes mellitus type 2 in obese Is this a current diagnosis for this admission?: Yes (8) Chronic CHF (congestive heart failure) Is this a current diagnosis for this admission?: Yes (9) Hypertension Is this a current diagnosis for this admission?: Yes (10) CAD (coronary artery disease) Is this a current diagnosis for this admission?: Yes (11) Hyperlipidemia Is this a current diagnosis for this admission?: Yes (12) Mixed anxiety and depressive disorder Is this a current diagnosis for this admission?: Yes (13) Morbid obesity with BMI of 45.0-49.9, adult Is this a current diagnosis for this admission?: Yes - Additional Information Resuscitation Status: Full Code Prescriptions: Levofloxacin [Levaquin 500 mg Tablet] 500 mg PO DAILY@1400 #5 tablet Home Medications: Alprazolam [Xanax 0.5 mg Tablet] 0.5 mg PO DAILYP PRN 03/13/18 Aspirin [Ecotrin 325 mg EC Tablet] 325 mg PO DAILY 03/13/18 Bupropion HCl [Bupropion Xl] 150 mg PO DAILY 03/13/18 Cyclobenzaprine HCl [Flexeril 10 mg Tablet] 10 mg PO QPMP PRN 03/13/18 Dexlansoprazole [Dexilant 60 mg Capsule] 60 mg PO DAILY 03/13/18 Docusate Sodium [Colace 100 mg Capsule] 200 mg PO QHS 03/13/18 Empagliflozin/Metformin HCl [Synjardy Xr 25-1,000 mg Tablet] 1 tab PO [id number] Ferrous Sulfate [Feosol 325 mg Tablet] 325 mg PO BID 03/13/18 Fluoxetine HCl [Prozac 20 mg Capsule] 60 mg PO QAM 03/13/18 Furosemide [Lasix 40 mg Tablet] 40 mg PO DAILY 03/13/18 Gabapentin [Neurontin] 600 mg PO Q8 03/13/18 Icosapent Ethyl [Vascepa] 2 gm PO BIDBS 03/13/18 Insulin Degludec [Tresiba Flextouch U-100] 40 unit SUBCUT BID 03/13/18 Insulin Lispro [Humalog Kwikpen U-100] 0 unit SUBCUT ACHS PRN 03/13/18 Insulin Lispro [Humalog] 5 unit SUBCUT MEALS 03/13/18 Isosorbide Mononitrate [Isosorbide Mononitrate ER] 30 mg PO DAILY 03/13/18 Lidocaine [Lidoderm 5% (700 mg) Transdermal Patch] 1 patch TOP DAILY 03/13/18 Liraglutide [Victoza 2-Thong] 1.8 mg SUBCUT DAILY 03/13/18 Lisinopril [Prinivil] 20 mg PO DAILY 03/13/18 Metoprolol Succinate [Toprol XL 100 mg Tablet] 100 mg PO DAILY 03/13/18 Oxycodone HCl/Acetaminophen [Percocet 5-325 mg Tablet] 1 tab PO TIDP PRN Ranitidine HCl [Zantac 150 mg Tablet] 150 mg PO QHS 03/13/18 Ranolazine [Ranexa 500 mg Tab.sr] 500 mg PO Q12 03/13/18 Trazodone HCl 1 tab PO QHS PRN MDD 100 mg 03/14/18 Levofloxacin [Levaquin 500 mg Tablet] 500 mg PO DAILY@1400 #5 tablet 03/16/18 History of Present Illness History of Present Illness: JESU ORR is a 57 year old female known to my practice who presented to the ED via EMS service with listed complains. She reported feeling weak for couple of days, nausea with vomiting, epigastric pain that radiate to her back and bilateral mid level back pain. She claimed that upon waking up this morning she felt dizziness, lightheaded, and fell at home. Upon arrival of the EMS crew her blood pressure recorded with systolic component in the 70's. She was resuscitated in route to the ED and upon arrival her initial evaluation revealed systolic blood pressure in the 90's. There was reported sustained hyperkalemia. Patient claimed that she was treated with Kayexalate 2 days prior to her presentation without any bowel movement. Her last bowel movement was four days prior to admission. Her recent urinalysis and urine culture completed on 03/10/2018 did revealed meza sensitive E. coli with colonies over 100,000/mL. Her morbidities include Diabetes Mellitus Type 2, Hypertension, Congestive Heart Failure, Coronary Artery Disease s/p old ME x 2 and stent angioplasty, Stroke without significant residual deficit, Right Kidney Cancer - s/p right nephrectomy, GERD, Arthritis, and Depression. She was advised hospitalization due to nausea with possible E.coli UTI, Hyperkalemia and acute on chronic CKD among her other morbidities. Hospital Course Hospital Course: She was managed with IV fluid supplementation and antibiotic therapy. She was seen in consultation by nephrology group. Her renal indices did improved but she is deemed at baseline due to her history of renal cancer s/p nephrectomy and chronic kidney disease. Her urine culture continue to reveal E.coli that is meza-sensitive to tested antibiotic panel. Her blood culture is pending at the time of her discharge x 72 hours. I will follow up on the final result on outpatient. She will remain on Levofloxacin therapy for 5 more days. She will follow up with Dr Justice Kiran, television cameraman, and myself as instructed upon discharge. Physical Exam Vital Signs: Temp Pulse Resp BP Pulse Ox 97.7 F 78 16 132/75 H 98 03/16/18 15:36 03/16/18 15:36 03/16/18 15:36 03/16/18 15:36 03/16/18 15:36 Intake & Output 03/15/18 03/16/18 03/17/18 06:59 06:59 06:59 Intake Total 2500 2859 2161 Output Total 3 Balance 2500 2856 2161 Weight 131.1 kg 129.4 kg Physical Exam: General appearance: PRESENT: morbidly obese Head exam: PRESENT: atraumatic, normocephalic Eye exam: PRESENT: conjunctiva pink, EOMI, PERRLA. ABSENT: scleral icterus Ear exam: PRESENT: normal external ear exam Mouth exam: PRESENT: moist Respiratory exam: PRESENT: clear to auscultation tarsha, decreased breath sounds - at lung bases Cardiovascular exam: PRESENT: RRR. ABSENT: diastolic murmur, rubs, systolic murmur Vascular exam: ABSENT: pallor GI/Abdominal exam: PRESENT: normal bowel sounds, soft. ABSENT: distended, guarding, mass, organomegaly, rebound, tenderness Extremities exam: ABSENT: pedal edema Musculoskeletal exam: PRESENT: Resolved tenderness - to palpation over right scapula region Neurological exam: PRESENT: alert, awake, oriented to person, oriented to place , oriented to time, oriented to situation, CN II-XII grossly intact. ABSENT: motor sensory deficit Psychiatric exam: PRESENT: appropriate affect, normal mood. ABSENT: homicidal ideation, suicidal ideation Skin exam: PRESENT: dry, intact, warm. ABSENT: cyanosis, rash Results Laboratory Results: 03/16/18 06:09 03/16/18 06:09 03/16/18 03/16/18 06:09 06:09 WBC 9.3 RBC 3.46 L Hgb 9.7 L Hct 29.8 L MCV 86 MCH 27.9 MCHC 32.4 RDW 14.7 H Plt Count 307 Retic Count (auto) 3.02 H Absolute Retic 0.105 Sodium 138.9 Potassium 4.9 Chloride 106 Carbon Dioxide 24 Anion Gap 9 BUN 21 H Creatinine 1.67 H Est GFR ( Amer) 39 L Est GFR (Non-Af Amer) 32 L Glucose 165 H Calcium 9.6 Iron 73.0 TIBC 269 % Saturation 27 Ferritin 70.00 Vitamin B12 335.0 Folate 6.44 Qualifiers - * PATIENT BEING DISCHARGED WITH ANY OF THE FOLLOWING DIAGNOSIS: No Plan Discharge Plan: D/C home today. Follow up with Dr. Justice Kiran and myself as instructed upon discharge.
[2018-03-16 18:58] VITALS: BP 137/72
== END 2018-03-16 19:17 | disposition home health service (06) | DRG 683 ==
LOC: ER 07:19 → EH 11:00 → 3S 12:57
PROVIDERS: ADMIT Internal Medicine Geriatric Medicine; ATTEND Internal Medicine Geriatric Medicine
DX: N17.9 Acute kidney failure, unspecified (principal); N39.0 Urinary tract infection, site not specified; B96.20 Unspecified Escherichia coli [E. coli] as the cause of diseases classified elsewhere; I13.0 Hypertensive heart and chronic kidney disease with heart failure and stage 1 through stage 4 chronic kidney disease, or unspecified chronic kidney disease; Z68.42 Body mass index [BMI] 45.0-49.9, adult; E87.5 Hyperkalemia; E11.22 Type 2 diabetes mellitus with diabetic chronic kidney disease; N18.4 Chronic kidney disease, stage 4 (severe); I50.9 Heart failure, unspecified; D63.1 Anemia in chronic kidney disease; I25.119 Atherosclerotic heart disease of native coronary artery with unspecified angina pectoris; K21.9 Gastro-esophageal reflux disease without esophagitis; K44.9 Diaphragmatic hernia without obstruction or gangrene; M19.90 Unspecified osteoarthritis, unspecified site; M10.9 Gout, unspecified; E78.00 Pure hypercholesterolemia, unspecified; F41.8 Other specified anxiety disorders; E66.01 Morbid (severe) obesity due to excess calories; Z79.82 Long term (current) use of aspirin; Z79.899 Other long term (current) drug therapy; Z79.84 Long term (current) use of oral hypoglycemic drugs; Z79.4 Long term (current) use of insulin; I25.2 Old myocardial infarction; Z95.5 Presence of coronary angioplasty implant and graft; Z85.528 Personal history of other malignant neoplasm of kidney; Z90.5 Acquired absence of kidney; Z87.891 Personal history of nicotine dependence; Z88.0 Allergy status to penicillin; Z88.8 Allergy status to other drugs, medicaments and biological substances
CPT/HCPCS: 36415; 72052; 72114; 80048; 80053; 81001; 82550; 82553; 82607; 82728; 82746; 82803; 82962; 83540; 83550; 83605; 84484; 85025; 85027; 85045; 87040; 87086; 87088; 87186; 93005; 93010; 99285; J1644; J1815; J1956; J7030

== ENCOUNTER → 2018-04-07 | Outpatient (CLI) | payer MEDICARE, MEDICAID ==
[2018-04-07 10:42] LABS: HEMOGLOBIN 9.9 g/dL (12.0-15.5); MEAN CORPUSCULAR HEMOGLOBIN 28.4 pg (27.0-33.4); MEAN CORPUSCULAR HGB CONC 32.9 g/dL (32.0-36.0); MEAN CORPUSCULAR VOLUME 87 fl (80-97); PLATELET COUNT 315 10^3/uL (150-450); RED BLOOD COUNT 3.47 10^6/uL (3.72-5.28); WHITE BLOOD COUNT 8.9 10^3/uL (4.0-10.5)
[2018-04-07 11:05] LABS: ANION GAP 14 (5-19); BLOOD UREA NITROGEN 40 mg/dL (7-20); CALCIUM 9.4 mg/dL (8.4-10.2); CARBON DIOXIDE 27 mmol/L (22-30); CHLORIDE 97 mmol/L (98-107); GLUCOSE 138 mg/dL (75-110); POTASSIUM 5.3 mmol/L (3.6-5.0); SODIUM 138.4 mmol/L (137-145)
[2018-04-07 11:19] LABS: APPEARANCE,URINE CLEAR; BILIRUBIN,URINE NEGATIVE (NEGATIVE); COLOR,URINE YELLOW; GLUCOSE, URINE >=500 mg/dL (NEGATIVE); KETONES,URINE NEGATIVE (NEGATIVE); LEUKOCYTE ESTERASE,URINE NEGATIVE (NEGATIVE); NITRITE,URINE NEGATIVE (NEGATIVE); PROTEIN,URINE NEGATIVE (NEGATIVE); UROBILINOGEN,URINE NEGATIVE mg/dL (<2.0)
== END ==
LOC: OD 10:00
PROVIDERS: ATTEND Internal Medicine Nephrology
DX: I50.9 Heart failure, unspecified (principal); E11.9 Type 2 diabetes mellitus without complications; N18.3 Chronic kidney disease, stage 3 (moderate)
CPT/HCPCS: 36415; 80048; 81001; 85027

== ENCOUNTER → 2018-05-05 | Outpatient (CLI) | payer MEDICARE, MEDICAID ==
[2018-05-05 10:04] LABS: ABSOLUTE BASOPHILS # (AUTO) 0.1 10^3/uL (0.0-0.2); ABSOLUTE EOSINOPHILS # (AUTO) 0.4 10^3/uL (0.0-0.6); ABSOLUTE LYMPHOCYTES (AUTO) 2.8 10^3/uL (0.5-4.7); ABSOLUTE MONOCYTES (AUTO) 0.5 10^3/uL (0.1-1.4); EOSINOPHILS % (AUTO) 4.5 % (0-6); HEMATOCRIT 33.3 % (36.0-47.0); LYMPHOCYTES % (AUTO) 31.9 % (13-45); MEAN CORPUSCULAR HEMOGLOBIN 28.4 pg (27.0-33.4); MEAN CORPUSCULAR HGB CONC 32.9 g/dL (32.0-36.0); MEAN CORPUSCULAR VOLUME 86 fl (80-97); MONOCYTES % (AUTO) 5.5 % (3-13); PLATELET COUNT 285 10^3/uL (150-450); RED BLOOD COUNT 3.86 10^6/uL (3.72-5.28); RED CELL DISTRIBUTION WIDTH 14.7 % (11.5-14.0); SEGMENTED NEUTROPHILS % (AUTO) 57.1 % (42-78); TOTAL CELLS COUNTED % (AUTO) 100 %; WHITE BLOOD COUNT 8.7 10^3/uL (4.0-10.5)
[2018-05-05 10:26] LABS: APPEARANCE,URINE SLIGHTLY-CLOUDY; BILIRUBIN,URINE NEGATIVE (NEGATIVE); COLOR,URINE YELLOW; GLUCOSE, URINE NEGATIVE (NEGATIVE); KETONES,URINE NEGATIVE (NEGATIVE); LEUKOCYTE ESTERASE,URINE NEGATIVE (NEGATIVE); NITRITE,URINE NEGATIVE (NEGATIVE); PROTEIN,URINE NEGATIVE (NEGATIVE); URINE SPECIFIC GRAVITY 1.012; UROBILINOGEN,URINE NEGATIVE mg/dL (<2.0)
[2018-05-05 10:29] LABS: ALANINE AMINOTRANSFERASE 19 U/L (9-52); ALBUMIN 4.1 g/dL (3.5-5.0); ALKALINE PHOSPHATASE 68 U/L (38-126); ANION GAP 12 (5-19); ASPARTATE AMINO TRANSFERASE 20 U/L (14-36); BILIRUBIN,DIRECT 0.2 mg/dL (0.0-0.4); BILIRUBIN,TOTAL 0.4 mg/dL (0.2-1.3); BLOOD UREA NITROGEN 26 mg/dL (7-20); CALCIUM 9.8 mg/dL (8.4-10.2); CARBON DIOXIDE 30 mmol/L (22-30); CHLORIDE 98 mmol/L (98-107); GLUCOSE 132 mg/dL (75-110); IRON(TIBC) 55.1 ug/dL (37-170); PHOSPHORUS 4.2 mg/dL (2.5-4.5); POTASSIUM 5.1 mmol/L (3.6-5.0); SODIUM 139.9 mmol/L (137-145); TOTAL PROTEIN 7.7 g/dL (6.3-8.2)
[2018-05-08 16:38] LABS: A/G RATIO 0.8 (0.7-1.7); ALBUMIN 2 3.2 g/dL (2.9-4.4); ALPHA-2-GLOBULIN 2 1.1 g/dL (0.4-1.0); BETA GLOBULINS 1.2 g/dL (0.7-1.3); GAMMA GLOBULIN 1.5 g/dL (0.4-1.8); MONOCLONAL SPIKE Not Observed g/dL (Not Observ); PROTEIN TOTAL SERUM 7.2 g/dL (6.0-8.5)
== END ==
LOC: LAB 09:41
PROVIDERS: ATTEND Internal Medicine Nephrology
DX: I12.9 Hypertensive chronic kidney disease with stage 1 through stage 4 chronic kidney disease, or unspecified chronic kidney disease (principal); N18.3 Chronic kidney disease, stage 3 (moderate); E66.01 Morbid (severe) obesity due to excess calories; D64.9 Anemia, unspecified; R20.9 Unspecified disturbances of skin sensation; R53.83 Other fatigue; M62.81 Muscle weakness (generalized)
CPT/HCPCS: 36415; 80053; 81001; 82728; 83540; 83550; 83970; 84100; 84165; 84443; 85025

== ENCOUNTER 2018-05-11 02:02 | Emergency (ER) | payer MEDICARE, MEDICAID ==
--- NOTE | 2018-05-11 02:17 | ER Document Report ---
ED General - General Stated Complaint: BACK PAIN Time Seen by Provider: 05/11/18 02:07 Notes: Patient is a 57-year-old female presents with complaint of frequent falls at home. She says that she has chronic back pain that radiates into her legs. He said after today's fall she has increasing left hip pain. She is on pain medicine at home as well as trazodone. Upon arrival she is very somnolent. Paramedics said that she just took her trazodone tonight. Patient says her last dose of pain medicine was early in the day. No focal weakness or numbness. No recent fevers or infections. Patient has history of sleep apnea and wears a CPAP machine at night. She is followed by Dr. Lopez. Walks with a walker. She lives at home with her sister. Some constipation. No loss of bowel control. No urinary retention. TRAVEL OUTSIDE OF THE [place] IN LAST 30 DAYS: No - Related Data Allergies/Adverse Reactions: sulfamethoxazole [From Bactrim] Allergy (Severe, Verified 03/13/18 07:40) rash trimethoprim [From Bactrim] Allergy (Severe, Verified 03/13/18 07:40) rash Penicillins Allergy (Unknown, Verified 03/13/18 07:40) Past Medical History - Social History Smoking Status: Unknown if Ever Smoked Frequency of alcohol use: None Drug Abuse: None Family History: Hypertension - Past Medical History Cardiac Medical History: Reports: Hx Congestive Heart Failure, Hx Coronary Artery Disease, Hx Heart Attack - x2, Hx Hypertension Denies: Hx DVT Pulmonary Medical History: Reports: Hx Pneumonia Denies: Hx Asthma, Hx Bronchitis, Hx COPD Neurological Medical History: Reports: Hx Cerebrovascular Accident - NO DAMAGE. Denies: Hx Seizures Endocrine Medical History: Reports: Hx Diabetes Mellitus Type 1, Hx Diabetes Mellitus Type 2 Renal/ Medical History: Reports: Hx End Stage Renal Disease. Denies: Hx Peritoneal Dialysis Malignancy Medical History: Reports: Hx Renal (Kidney) Cancer - s/p right nephrectomy September, GI Medical History: Reports: Hx Gastroesophageal Reflux Disease, Hx Hiatal Hernia. Denies: Hx Crohn's Disease, Hx Ulcerative Colitis Musculoskeletal Medical History: Reports Hx Arthritis - gout Skin Medical History: Denies Hx Psoriasis Psychiatric Medical History: Reports: Hx Depression Traumatic Medical History: Denies: Hx Traumatic Brain Injury Infectious Medical History: Denies: Hx C-Diff Past Surgical History: Reports: Hx Cardiac Catheterization - stent placement, Hx Cardiac Surgery - stents, Hx Cholecystectomy, Hx Coronary Stent - 2014, Hx Kidney (Renal Surgery) - right nephrectomy, Hx Orthopedic Surgery - left hand, left great toe amputation, Other - right nephrectomy for ca. Denies: Hx Hysterectomy - Immunizations Hx Diphtheria, Pertussis, Tetanus Vaccination: Yes Hx Pneumococcal Vaccination: 07/11/13 Review of Systems - Review of Systems Notes: My Normal Review Basic REVIEW OF SYSTEMS: CONSTITUTIONAL : Denies fever, chills, or sweats. Denies recent illness. EENT: Denies eye, ear, throat, or mouth pain or symptoms. Denies nasal or sinus congestion. CARDIOVASCULAR: Denies chest pain. RESPIRATORY: Denies cough, cold, or chest congestion. Denies shortness of breath, difficulty breathing, or wheezing. GASTROINTESTINAL: Denies abdominal pain. Denies nausea, vomiting, or diarrhea. MUSCULOSKELETAL: Low back pain which is chronic. Left and right hip pain. SKIN: Denies rash or skin lesions. NEUROLOGICAL: Denies altered mental status or loss of consciousness. Denies headache. Denies weakness or paralysis or loss of use of either side. Denies problems with gait or speech. Denies sensory or motor loss. ALL OTHER SYSTEMS REVIEWED AND NEGATIVE. Physical Exam - Vital signs Vitals: Resp BP Pulse Ox 15 98/52 L 98 05/11/18 02:09 05/11/18 02:09 05/11/18 02:09 - Notes Notes: General Appearance: Well nourished, patient is sleeping but arousable. She will wake up and answer questions and than immediately fall back to sleep. No distress. Vitals: reviewed, See vital signs table. Head: no swelling or tenderness to the head Eyes: PERRL, EOMI, Conjuctiva clear Mouth: No decreasd moisture Throat: No tonsillar inflammation, No airway obstruction, No lymphadenopathy Neck: Supple, mild paraspinal cervical tenderness which patient says is chronic. No midline tenderness. No step-offs or deformities. Back: Some pain to palpation over the lower thoracic spine down into the lumbar spine. No step-offs or deformities. No bruising or swelling to the back. Lungs: No wheezing, No rales, No rhonci, No accessory muscle use, good air exchange bilaterally. Heart: Normal rate, Regular rythm, No murmur, no rub Abdomen: Normal BS, soft, No rigidity, No abdominal tenderness, No guarding, no rebound, no abdominal masses, no organomegaly Extremities: strength 5/5 in all extremities, good pulses in all extremities, with exception of some pain with range of motion of the hips. No pain to the knees ankles or feet. No pain in his upper extremities., no edema. Skin: warm, dry, appropriate color, no rash Neuro: Patient is somnolent and sleeping but is able to wake up to answer questions and then falls back asleep. She is able to move her extremities on her own. Distal sensation intact. Cranial nerves II through XII are intact. Course - Re-evaluation Re-evalutation: 05/11/18 03:35 On reevaluation the patient she is sleeping. When she sleeps her oxygen saturation decreases despite being on nasal cannula. I will place her on CPAP. She obviously has bad sleep apnea which is why she supposed to wear CPAP at home at night. Only thing pending is urinalysis at this time. I the patient should be okay with us doing a straight cath and she said that would be fine. We will straight cath to get her urine results. 05/11/18 04:51 I suspect that the patient's falls are partially related to the fact that she is on sleeping medicine at night. Tonight she is somewhat and her presentation is consistent with that of someone who is on the sleeping medication. Patient says is related to her trazodone. I informed her that she should cut back on her trazodone and talk to Dr. Lopez about this. I informed her that if she continues to take the same dose of this medication she will most likely continue to have falls at nighttime. Encouraged to continue use her walker. She is also informed her she needs to continue use her CPAP at night. Currently her workup shows no evidence of infection. There is no significant injuries on her CT scans. I feel she is safe to be discharged home. Patient to return to the ER if she has recurrent falls, fevers, or she feels unwell. Patient agrees with plan will be discharged home. Dictation of this chart was performed using voice recognition software; therefore, there may be some unintended grammatical errors. 05/11/18 04:53 - Vital Signs Vital signs: Temp Pulse Resp BP Pulse Ox 97.7 F 19 118/75 97 05/11/18 02:21 05/11/18 04:03 05/11/18 04:03 05/11/18 04:03 - Laboratory Result Diagrams: 05/11/18 02:19 05/11/18 02:19 Laboratory results interpreted by me: 05/11/18 05/11/18 05/11/18 02:19 02:19 02:19 WBC 12.9 H RBC 3.70 L Hgb 10.4 L Hct 32.3 L RDW 14.4 H Absolute Neutrophils 9.0 H VBG pH 7.28 L Chloride 97 L BUN 27 H Creatinine 1.99 H Est GFR ( Amer) 31 L Est GFR (Non-Af Amer) 26 L Glucose 192 H Urine Glucose (UA) 05/11/18 04:00 WBC RBC Hgb Hct RDW Absolute Neutrophils VBG pH Chloride BUN Creatinine Est GFR ( Amer) Est GFR (Non-Af Amer) Glucose Urine Glucose (UA) >=500 H Discharge - Discharge Clinical Impression: Morbid obesity with BMI of 45.0-49.9, adult Fall at home Qualifiers: Encounter type: initial encounter Qualified Code(s): W19.XXXA - Unspecified fall, initial encounter; Y92.009 - Unspecified place in unspecified non- institutional (private) residence as the place of occurrence of the external cause; Y92.009 - Unspecified place in unspecified non-institutional (private) residence as the place of occurrence of the external cause Back pain Qualifiers: Back pain location: low back pain Chronicity: chronic Back pain laterality: bilateral Sciatica presence: with sciatica Sciatica laterality: sciatica laterality unspecified Qualified Code(s): M54.40 - Lumbago with sciatica, unspecified side; G89.29 - Other chronic pain; G89.29 - Other chronic pain Condition: Good Disposition: HOME, SELF-CARE Additional Instructions: Please talk to Dr. Lopez about possibly cutting back on your sleeping medicine. I think your sleeping medicine is affecting your ability to walk to the bathroom at night as you presented tonight very somnolent and hard to keep awake. Please be sure you are wearing your CPAP at night. Please return to the ER immediately if you develop fevers, recurrent falls, difficulty breathing, or feel that you are worsening. Always use oru walker when attempting to walk. Referrals: AMBAR LOPEZ MD [ACTIVE STAFF] - 05/12/18
[2018-05-11 02:36] LABS: ABSOLUTE BASOPHILS # (AUTO) 0.1 10^3/uL (0.0-0.2); ABSOLUTE EOSINOPHILS # (AUTO) 0.5 10^3/uL (0.0-0.6); ABSOLUTE LYMPHOCYTES (AUTO) 2.8 10^3/uL (0.5-4.7); ABSOLUTE MONOCYTES (AUTO) 0.5 10^3/uL (0.1-1.4); BASOPHILS % (AUTO) 0.7 % (0-2); EOSINOPHILS % (AUTO) 4.1 % (0-6); HEMATOCRIT 32.3 % (36.0-47.0); HEMOGLOBIN 10.4 g/dL (12.0-15.5); LYMPHOCYTES % (AUTO) 21.4 % (13-45); MEAN CORPUSCULAR HEMOGLOBIN 28.2 pg (27.0-33.4); MEAN CORPUSCULAR HGB CONC 32.4 g/dL (32.0-36.0); MEAN CORPUSCULAR VOLUME 87 fl (80-97); MONOCYTES % (AUTO) 3.8 % (3-13); PLATELET COUNT 291 10^3/uL (150-450); RED CELL DISTRIBUTION WIDTH 14.4 % (11.5-14.0); TOTAL CELLS COUNTED % (AUTO) 100 %; WHITE BLOOD COUNT 12.9 10^3/uL (4.0-10.5)
[2018-05-11 02:37] LABS: VENOUS BLOOD BASE EXCESS -0.6 mmol/L; VENOUS BLOOD PCO2 58.8 mmHg (35-63); VENOUS BLOOD PH 7.28 (7.30-7.42)
[2018-05-11 02:47] LABS: ALANINE AMINOTRANSFERASE 28 U/L (9-52); ALBUMIN 3.9 g/dL (3.5-5.0); ALKALINE PHOSPHATASE 80 U/L (38-126); ANION GAP 18 (5-19); ASPARTATE AMINO TRANSFERASE 34 U/L (14-36); BILIRUBIN,DIRECT 0.2 mg/dL (0.0-0.4); BILIRUBIN,TOTAL 0.4 mg/dL (0.2-1.3); BLOOD UREA NITROGEN 27 mg/dL (7-20); CALCIUM 9.3 mg/dL (8.4-10.2); CARBON DIOXIDE 25 mmol/L (22-30); CHLORIDE 97 mmol/L (98-107); GLUCOSE 192 mg/dL (75-110); POTASSIUM 4.3 mmol/L (3.6-5.0); SODIUM 139.6 mmol/L (137-145); TOTAL PROTEIN 7.4 g/dL (6.3-8.2)
--- NOTE | 2018-05-11 03:16 | RADIOLOGY REPORT (SQ) ---
Chest single view on 05/11/2018 at 2:59 AM CLINICAL INDICATION: Fall, per protocol for mechanism of injury COMPARISON: None FINDINGS: A few overlying wires are noted. There is elevation of the right hemidiaphragm. The lungs are clear. Cardiac, hilar and mediastinal contours are within normal limits. The lunate vascularity is within normal limits. IMPRESSION: No acute disease.
--- NOTE | 2018-05-11 03:31 | RADIOLOGY REPORT (SQ) ---
CLINICAL DATA: 57-year-old female with bilateral hip pain following trauma TECHNICAL DATA: Three x-ray views of the hips and pelvis were performed including an AP pelvis and frog-leg lateral views of each hip. FINDINGS: RIGHT: There is no evidence of fracture or dislocation. There is no significant arthritis or degenerative change. No focal lytic or sclerotic bone lesions are seen. Bone mineralization is normal. No focal soft tissue abnormalities are identified. LEFT: There is no evidence of fracture or dislocation. There is no significant arthritis or degenerative change. No focal lytic or sclerotic bone lesions are seen. Bone mineralization is normal. No focal soft tissue abnormalities are identified. IMPRESSION: No evidence of acute osseous injury.
--- NOTE | 2018-05-11 03:41 | RADIOLOGY REPORT (SQ) ---
EXAM DESCRIPTION: CT LUMBAR SPINE WITHOUT IV CONTRAST COMPLETED DATE/TME: 05/11/2018 02:08 CLINICAL HISTORY: 57 years, Female, fall, trauma COMPARISON: Plain films 03/10/2018 TECHNIQUE: [id number] Images stored on PACS. All CT scanners at this facility use dose modulation, iterative reconstruction, and/or weight based dosing when appropriate to reduce radiation dose to as low as reasonably achievable (ALARA). [facility]: Dose Right [facility]: CareDose [facility]: Dose Right [facility]: Teradose 4D [facility]: Noah LIMITATIONS: None. FINDINGS: Evaluation of intraspinal canal contents limited due to CT technique. However, vertebral body height and alignment is preserved. Limited evaluation of extraspinal anatomic structures shows mild atheromatous change. The right kidney is not definitively seen. What is likely a benign vertebral body hemangioma of L3. Endplate degenerative changes with vacuum disc phenomenon and osteophytic spurring at the L3/L4 level. Bilateral facet arthropathy at this level with diffuse disc bulging results in at least mild central canal stenosis and mild neural foraminal narrowing bilaterally. At L4-5 there is moderate facet arthropathy bilaterally with diffuse disc bulging. Mild central canal stenosis. The neural foramina appear patent. The L5/S1 level, L2/L3 level, and L1/L2 levels are unremarkable. IMPRESSION: Degenerative changes at the L3-4 level resulting in at least mild central canal stenosis and mild neural foraminal narrowing bilaterally. TECHNICAL DOCUMENTATION: Quality ID # [id number]: Final reports with documentation of one or more dose reduction techniques (e.g., Automated exposure control, adjustment of the mA and/or kV according to patient size, use of iterative reconstruction technique) 2010 [employer]- All Rights Reserved
--- NOTE | 2018-05-11 03:42 | RADIOLOGY REPORT (SQ) ---
EXAM DESCRIPTION: CT THORACIC SPINE WITHOUT IV CONTRAST COMPLETED DATE/TME: 05/11/2018 02:08 CLINICAL HISTORY: fall, trauma COMPARISON: None available TECHNIQUE: Axial CT of the thoracic spine obtained without contrast. Suboptimal evaluation due to motion artifact. FINDINGS: Alignment of the thoracic spine is maintained without evidence of subluxation. No fracture identified. Vertebral body height preserved. Prevertebral soft tissues are unremarkable. Intervertebral disc height relatively well-preserved. Mild endplate spondylosis. Mild bilateral dependent atelectasis in the visualized lungs. Atherosclerotic calcification of the thoracic aorta. Coronary artery atherosclerosis. No other definite abnormalities of visualized abdominal or thoracic soft tissues. DLP: 4130.69 mGy-cm IMPRESSION: 1. No definite acute fracture or subluxation of the thoracic spine. 2. Mild degenerative change throughout the thoracic spine. This exam was performed according to our departmental dose-optimization program, which includes automated exposure control, adjustment of the mA and/or kV according to patient size and/or use of iterative reconstruction technique.
--- NOTE | 2018-05-11 03:43 | RADIOLOGY REPORT (SQ) ---
CT head without contrast on 05/11/2018 at 3:06 AM CLINICAL INDICATION: Fall, per protocol for mechanism of injury TECHNIQUE: Multiple axial images are obtained throughout the head without the administration of contrast. This exam was performed according to our departmental dose-optimization program, which includes automated exposure control, adjustment of the mA and/or kV according to patient size and/or use of iterative reconstruction technique. Total DLP is 1017.17 mGy*cm. COMPARISON: 04/15/2017 FINDINGS: There is no hydrocephalus. There is no CT evidence of acute infarct. There is no hemorrhage. There are no abnormal extra-axial fluid collections. There is no mass, mass effect or midline shift. No bony abnormality is noted. Stable subcutaneous calcification is noted in the left facial soft tissues. IMPRESSION: No acute intracranial abnormality.
[2018-05-11 04:31] LABS: APPEARANCE,URINE SLIGHTLY-CLOUDY; BILIRUBIN,URINE NEGATIVE (NEGATIVE); COLOR,URINE YELLOW; GLUCOSE, URINE >=500 mg/dL (NEGATIVE); KETONES,URINE NEGATIVE (NEGATIVE); LEUKOCYTE ESTERASE,URINE NEGATIVE (NEGATIVE); NITRITE,URINE NEGATIVE (NEGATIVE); PROTEIN,URINE NEGATIVE (NEGATIVE); URINE SPECIFIC GRAVITY 1.018; UROBILINOGEN,URINE NEGATIVE mg/dL (<2.0)
[2018-05-11 11:15] VITALS: BP 123/85
--- NOTE | 2018-05-11 12:26 | EKG REPORT ---
SEVERITY:- ABNORMAL ECG - SINUS RHYTHM LEFT VENTRICULAR HYPERTROPHY BORDERLINE PROLONGED QT INTERVAL : Confirmed by: Randi Nagel MD 11-May-2018 12:25:57
== END 2018-05-11 11:19 | disposition home or self-care (01) ==
LOC: ER 02:02
DX: M54.40 Lumbago with sciatica, unspecified side (principal); E66.01 Morbid (severe) obesity due to excess calories; Z68.42 Body mass index [BMI] 45.0-49.9, adult; W18.30XA Fall on same level, unspecified, initial encounter; Y92.009 Unspecified place in unspecified non-institutional (private) residence as the place of occurrence of the external cause; I50.9 Heart failure, unspecified; I11.0 Hypertensive heart disease with heart failure; E11.22 Type 2 diabetes mellitus with diabetic chronic kidney disease; I13.2 Hypertensive heart and chronic kidney disease with heart failure and with stage 5 chronic kidney disease, or end stage renal disease; N18.6 End stage renal disease; Z91.81 History of falling; Z88.0 Allergy status to penicillin; Z88.3 Allergy status to other anti-infective agents; I25.2 Old myocardial infarction
CPT/HCPCS: 36415; 51701; 70450; 71045; 72128; 72131; 73522; 80053; 81001; 82803; 82962; 85025; 93005; 93010; 94660; 99284

== ENCOUNTER 2018-06-19 13:45 | Emergency (ER) | payer MEDICARE, MEDICAID ==
--- NOTE | 2018-06-19 14:58 | ER Document Report ---
ED General - General Chief Complaint: Flank Pain Stated Complaint: FLANK PAIN, ABDOMINAL PAIN Time Seen by Provider: 06/19/18 14:43 TRAVEL OUTSIDE OF THE [place] IN LAST 30 DAYS: No - HPI Notes: Patient is a 57-year-old female with a history of Diabetes Mellitus Type 2, Hypertension, Congestive Heart Failure, Coronary Artery Disease s/p old [place] x 2 and stent angioplasty, Stroke without significant residual deficit, Right Kidney Cancer - s/p right nephrectomy, GERD, Arthritis, and Depression who presents to the ED complaining of left flank pain, nausea, fatigue, elevated blood glucose. Patient states that she has been feeling most of the symptoms over the last 3 weeks. Patient states that she does have dyspnea on exertion which is not uncommon for her. She has been eating and drinking without any difficulties, but does have a decreased p.o. intake. Her last bowel movement was prior to arrival. Denies any headache, fever, head injury, neck pain, changes in vision/speech/mentation/hearing, URI, sore throat, chest pain, palpitations, syncope, cough, shortness of breath, wheeze, vomiting/diarrhea, urinary retention, hematuria, loss of control of bowel or bladder, numbness/ tingling, saddle anesthesia, muscle paralysis/weakness, or rash. - Related Data Allergies/Adverse Reactions: sulfamethoxazole [From Bactrim] Allergy (Severe, Verified 03/13/18 07:40) rash trimethoprim [From Bactrim] Allergy (Severe, Verified 03/13/18 07:40) rash Penicillins Allergy (Unknown, Verified 03/13/18 07:40) Past Medical History - Social History Smoking Status: Unknown if Ever Smoked Family History: Hypertension - Past Medical History Cardiac Medical History: Reports: Hx Congestive Heart Failure, Hx Coronary Artery Disease, Hx Heart Attack - x2, Hx Hypertension Denies: Hx DVT Pulmonary Medical History: Reports: Hx Pneumonia Denies: Hx Asthma, Hx Bronchitis, Hx COPD Neurological Medical History: Reports: Hx Cerebrovascular Accident - NO DAMAGE. Denies: Hx Seizures Endocrine Medical History: Reports: Hx Diabetes Mellitus Type 1, Hx Diabetes Mellitus Type 2 Renal/ Medical History: Reports: Hx End Stage Renal Disease. Denies: Hx Peritoneal Dialysis Malignancy Medical History: Reports: Hx Renal (Kidney) Cancer - s/p right nephrectomy September, GI Medical History: Reports: Hx Gastroesophageal Reflux Disease, Hx Hiatal Hernia. Denies: Hx Crohn's Disease, Hx Ulcerative Colitis Musculoskeletal Medical History: Reports Hx Arthritis - gout Skin Medical History: Denies Hx Psoriasis Psychiatric Medical History: Reports: Hx Depression Traumatic Medical History: Denies: Hx Traumatic Brain Injury Infectious Medical History: Denies: Hx C-Diff Past Surgical History: Reports: Hx Cardiac Catheterization - stent placement, Hx Cardiac Surgery - stents, Hx Cholecystectomy, Hx Coronary Stent - 2013, Hx Kidney (Renal Surgery) - right nephrectomy, Hx Orthopedic Surgery - left hand, left great toe amputation, Other - right nephrectomy for ca. Denies: Hx Hysterectomy - Immunizations Hx Diphtheria, Pertussis, Tetanus Vaccination: Yes Hx Pneumococcal Vaccination: 07/11/13 Review of Systems - Review of Systems -: Yes All other systems reviewed and negative Physical Exam - Vital signs Vitals: Temp Pulse Resp BP Pulse Ox 97.8 F 80 18 133/73 H 93 06/19/18 13:51 06/19/18 13:51 06/19/18 13:51 06/19/18 13:51 06/19/18 13:51 - Notes Notes: PHYSICAL EXAMINATION: GENERAL: Well-appearing, well-nourished and in no acute distress. A&Ox4. Answers questions appropriately. HEAD: Atraumatic, normocephalic. EYES: Pupils equal round and reactive to light, extraocular movements intact, sclera anicteric, conjunctiva are normal. ENT: Nares patent and without discharge. oropharynx clear without exudates. No tonsilar hypertrophy or erythema. Moist mucous membranes. NECK: Normal range of motion, supple without lymphadenopathy LUNGS: Breath sounds clear to auscultation bilaterally and equal. No wheezes rales or rhonchi. HEART: Regular rate and rhythm without murmurs, rubs, gallops. ABDOMEN: Soft, nontender, nondistended abdomen. No guarding, no rebound. No masses appreciated. Normal bowel sounds present. + mild left CVA tenderness. Musculoskeletal: FROM to passive/active. Strength 5+/5. Shweta neg. No asymmetry to LE's. Extremities: Trace pitting edema b/l LE's. Peripheral pulses 2+. Capillary refill less than 3 seconds. NEUROLOGICAL: Normal speech, normal gait. PSYCH: Normal mood, normal affect. SKIN: Warm, Dry, normal turgor, no rashes or lesions noted. Course - Re-evaluation Re-evalutation: 06/19/18 16:59 This case was reviewed with Dr. Lopez, her PCM, who states that she can be followed up in his office this week. He does not want her admitted at this time. He is aware of the imaging and all of the lab results. He is comfortable with her going home. Patient is an afebrile, well-hydrated, 57-year-old female who presents to the ED for weakness and left flank pain. Vitals are currently acceptable without any significant tachycardia, tachypnea, or hypoxia. PE is otherwise unremarkable. Patient is nontoxic-appearing and is tolerating p.o. without difficulty. CBC, CMP, EKG/cardiac enzyme, BNP, chest x-ray are all unremarkable for any acute pathology. Patient does not have any chest pain, dyspnea, or shortness of breath. Patient's presentation and symptomatology creates low suspicion for ACS, PE, pneumothorax, pericarditis, dissection, respiratory compromise, severe dehydration, sepsis, meningitis, acute abdomen, or other systemic emergent condition at this time. Patient is aware that this condition can change from initial presentation and she needs to monitor symptoms closely and seek medical attention for any acute changes. Recommend conservative measures for symptoms. Recheck with your PCM in 2-3 days. Consider consult with Cardiology. Return to the ED with any worsening/ concerning symptoms otherwise as reviewed in discharge. Patient is in agreement. - Vital Signs Vital signs: Temp Pulse Resp BP Pulse Ox 97.8 F 80 18 133/73 H 93 06/19/18 13:51 06/19/18 13:51 06/19/18 13:51 06/19/18 13:51 06/19/18 13:51 - Laboratory Result Diagrams: 06/19/18 14:55 06/19/18 14:55 Laboratory results interpreted by me: 06/19/18 06/19/18 06/19/18 14:55 14:55 14:55 WBC 11.5 H Hgb 11.1 L Hct 33.8 L RDW 14.3 H VBG pH 7.43 H VBG HCO3 33.0 H Chloride 92 L Carbon Dioxide 35 H BUN 29 H Creatinine 1.61 H Est GFR ( Amer) 40 L Est GFR (Non-Af Amer) 33 L Glucose 299 H Urine Glucose (UA) 06/19/18 15:11 WBC Hgb Hct RDW VBG pH VBG HCO3 Chloride Carbon Dioxide BUN Creatinine Est GFR ( Amer) Est GFR (Non-Af Amer) Glucose Urine Glucose (UA) 50 H Discharge - Discharge Clinical Impression: Left flank pain, Generalized weakness Condition: Stable Disposition: HOME, SELF-CARE Additional Instructions: Maintain adequate fluid and food intake Take home medications as directed Healthy diet Monitor blood pressure daily and keep a log Monitor symptoms for any acute changes Recheck with your PCM in 2-3 days or sooner if needed* Return to the ED with any worsening symptoms and/or development of fever, headache, chest pain, palpitations, syncope, shortness of breath, trouble breathing, abdominal pain, n/v/d, blood in stool/urine, loss of control of bowel /bladder, urinary retention, muscle weakness/paralysis, numbness/tingling, or other worsening symptoms that are concerning to you. Forms: Elevated Blood Pressure Referrals: AMBAR LOPEZ MD [Primary Care Provider] - 06/21/18
[2018-06-19 15:09] LABS: VENOUS BLOOD PCO2 51.3 mmHg (35-63); VENOUS BLOOD PH 7.43 (7.30-7.42)
--- NOTE | 2018-06-19 15:15 | RADIOLOGY REPORT (SQ) ---
EXAM DESCRIPTION: CHEST SINGLE VIEW COMPLETED DATE/TIME: 06/19/2018 3:04 pm REASON FOR STUDY: SETHI COMPARISON: 05/11/2018 EXAM PARAMETERS: NUMBER OF VIEWS: One view. TECHNIQUE: Single frontal radiographic view of the chest acquired. RADIATION DOSE: NA LIMITATIONS: None. FINDINGS: LUNGS AND PLEURA: No opacities, masses or pneumothorax. No pleural effusion. MEDIASTINUM AND HILAR STRUCTURES: No masses. Contour normal. HEART AND VASCULAR STRUCTURES: Cardiomegaly. BONES: No acute findings. HARDWARE: None in the chest. OTHER: No other significant finding. IMPRESSION: Cardiomegaly without acute abnormality of the lungs in AP projection. TECHNICAL DOCUMENTATION: JOB ID: [id number] [employer]- All Rights Reserved Reading location - IP/workstation name: [email or web address]
[2018-06-19 15:16] LABS: ABSOLUTE BASOPHILS # (AUTO) 0.1 10^3/uL (0.0-0.2); ABSOLUTE EOSINOPHILS # (AUTO) 0.5 10^3/uL (0.0-0.6); ABSOLUTE LYMPHOCYTES (AUTO) 2.9 10^3/uL (0.5-4.7); ABSOLUTE MONOCYTES (AUTO) 0.6 10^3/uL (0.1-1.4); ABSOLUTE NEUT (AUTO) 7.4 10^3/uL (1.7-8.2); BASOPHILS % (AUTO) 0.8 % (0-2); EOSINOPHILS % (AUTO) 4.6 % (0-6); HEMATOCRIT 33.8 % (36.0-47.0); HEMOGLOBIN 11.1 g/dL (12.0-15.5); LYMPHOCYTES % (AUTO) 25.5 % (13-45); MEAN CORPUSCULAR HEMOGLOBIN 27.8 pg (27.0-33.4); MEAN CORPUSCULAR VOLUME 84 fl (80-97); MONOCYTES % (AUTO) 4.8 % (3-13); PLATELET COUNT 280 10^3/uL (150-450); RED BLOOD COUNT 4.01 10^6/uL (3.72-5.28); RED CELL DISTRIBUTION WIDTH 14.3 % (11.5-14.0); SEGMENTED NEUTROPHILS % (AUTO) 64.3 % (42-78); TOTAL CELLS COUNTED % (AUTO) 100 %; WHITE BLOOD COUNT 11.5 10^3/uL (4.0-10.5)
[2018-06-19 15:28] LABS: APPEARANCE,URINE CLEAR; BILIRUBIN,URINE NEGATIVE (NEGATIVE); COLOR,URINE STRAW; GLUCOSE, URINE 50 mg/dL (NEGATIVE); KETONES,URINE NEGATIVE (NEGATIVE); LEUKOCYTE ESTERASE,URINE NEGATIVE (NEGATIVE); NITRITE,URINE NEGATIVE (NEGATIVE); PROTEIN,URINE NEGATIVE (NEGATIVE); URINE SPECIFIC GRAVITY 1.005; UROBILINOGEN,URINE NEGATIVE mg/dL (<2.0)
[2018-06-19 15:42] LABS: ALANINE AMINOTRANSFERASE 22 U/L (9-52); ALBUMIN 3.8 g/dL (3.5-5.0); ALKALINE PHOSPHATASE 74 U/L (38-126); ANION GAP 10 (5-19); ASPARTATE AMINO TRANSFERASE 26 U/L (14-36); BILIRUBIN,DIRECT 0.4 mg/dL (0.0-0.4); BILIRUBIN,TOTAL 0.4 mg/dL (0.2-1.3); BLOOD UREA NITROGEN 29 mg/dL (7-20); CALCIUM 9.1 mg/dL (8.4-10.2); CARBON DIOXIDE 35 mmol/L (22-30); CHLORIDE 92 mmol/L (98-107); GLUCOSE 299 mg/dL (75-110); LIPASE 208.5 U/L (23-300); POTASSIUM 4.4 mmol/L (3.6-5.0); TOTAL PROTEIN 7.4 g/dL (6.3-8.2)
[2018-06-19] MEDS ORDERED: METOCLOPRAMIDE HCL INJ/PF 10 MG/2 ML SDV IV ONE (15:44)
[2018-06-19 15:55] LABS: NT PRO BNP 200 pg/mL (5-900)
[2018-06-19 16:06] LABS: TROPONIN I < 0.012 ng/mL
[2018-06-19] MEDS ORDERED: NORMAL SALINE 1000 ML 1,000 ML IV ONE (16:32)
[2018-06-19 17:18] VITALS: BP 126/73
--- NOTE | 2018-06-20 13:08 | EKG REPORT ---
SEVERITY:- ABNORMAL ECG - SINUS RHYTHM FIRST DEGREE AV BLOCK LEFT VENTRICULAR HYPERTROPHY BORDERLINE T ABNORMALITIES, INFERIOR LEADS PROLONGED QT INTERVAL : Confirmed by: Randi Nagel MD 20-Jun-2018 13:07:21
== END 2018-06-19 17:20 | disposition home or self-care (01) ==
LOC: ER 13:45
DX: R10.9 Unspecified abdominal pain (principal); R53.1 Weakness; E11.9 Type 2 diabetes mellitus without complications; I50.9 Heart failure, unspecified; I11.0 Hypertensive heart disease with heart failure; Z88.3 Allergy status to other anti-infective agents; Z88.0 Allergy status to penicillin; Z86.73 Personal history of transient ischemic attack (TIA), and cerebral infarction without residual deficits; Z90.49 Acquired absence of other specified parts of digestive tract; I25.2 Old myocardial infarction
CPT/HCPCS: 93005; 99284; 96361; 96374; 36415; 87086; 83690; 85025; 80053; 81001; 84484; 82803; 83880; 71045; 93010; J2765; J7030

== ENCOUNTER 2018-06-27 11:07 | Day surgery (SDC) | payer MEDICARE, MEDICAID ==
[~2018-06-27 11:07] MED LIST changes: +MIDAZOLAM 2 MG/2 ML INJ ONE
[2018-06-27] MEDS ORDERED: ONABOTULINUMTOXINA INJ/PF 100 UNIT SDV IM ONE (12:00)
--- NOTE | 2018-06-27 12:19 | Operative Report ---
Operative Report DATE OF SURGERY: 06/27/18 Operative Report: The risks benefits and alternatives of the procedure explained to the patient in detail and informed consent is obtained.A GIF Olympus video scope was inserted into the patient's mouth and hypopharynx, the esophagus is identified intubated and insufflated, the scope was then advanced through the esophagus stomach and duodenum, retroflexion maneuver is done the esophagus stomach and first and second portions of the duodenum examined PREOPERATIVE DIAGNOSIS: Gastroparesis, nausea vomiting POSTOPERATIVE DIAGNOSIS: Gastroparesis residual food material left over from evening meal of last night OPERATION: EGD with submucosal Botox injection SURGEON: SHENG PIMENTEL ANESTHESIA: Moderate Sedation - 2 mg of Versed, 50 mcg of fentanyl. Conscious sedation monitoring time 30 minutes. TISSUE REMOVED OR ALTERED: As noted above. COMPLICATIONS: None. ESTIMATED BLOOD LOSS: None. INTRAOPERATIVE FINDINGS: As noted above. PROCEDURE: Patient tolerated procedure well. No immediate postprocedure complications are noted. Patient discharged in good condition. Discharge date 06/27/2018. Discharge diet: Regular. Discharge activity: Regular. 2-3-week follow-up to discuss findings. Patient is instructed to call the office or proceed to the emergency room should there be any further problems or questions. Wait on the pathology.
[2018-06-27 13:15] VITALS: BP 100/61
== END 2018-06-27 15:00 | disposition home or self-care (01) ==
LOC: END 11:07
PROVIDERS: ATTEND Internal Medicine Gastroenterology
DX: K31.84 Gastroparesis (principal); R11.2 Nausea with vomiting, unspecified; K21.9 Gastro-esophageal reflux disease without esophagitis; Z87.891 Personal history of nicotine dependence; Z79.899 Other long term (current) drug therapy; Z79.82 Long term (current) use of aspirin; Z79.4 Long term (current) use of insulin
CPT/HCPCS: 45381; 82962; J2250; J3010; J0585; J0171; J1200; J1610; J2310; J2405; J3490

== ENCOUNTER 2018-08-22 12:06 | Inpatient (IN) | payer MEDICARE, MEDICAID ==
[2018-08-22] MEDS ORDERED: ONDANSETRON HCL INJ/PF 4 MG/2 ML SDV IV ONE (12:39)
[2018-08-22] MEDS ORDERED: FENTANYL CITRATE INJ/PF 100 MCG/2 ML AMPUL IV ONE ×2 (12:39→15:47)
[2018-08-22] MEDS ORDERED: NORMAL SALINE 1000 ML 500 ML IV ONE (12:39)
--- NOTE | 2018-08-22 12:42 | ER Document Report ---
ED Medical Screen (RME) - General Chief Complaint: Flank Pain Stated Complaint: VOMITING Time Seen by Provider: 08/22/18 12:35 Primary Care Provider: AMBAR LOPEZ MD [Primary Care Provider] - Follow up as needed Notes: 57 years old female with multiple medical history including stage IV renal disease, diabetes hypertension coronary artery disease with 1 stent placed. Presents today with left lower quadrant pain and left flank pain. General malaise and nausea vomiting. Obese, left lower quadrant tenderness and flank tenderness noted. TRAVEL OUTSIDE OF THE [place] IN LAST 30 DAYS: No - Related Data Allergies/Adverse Reactions: sulfamethoxazole [From Bactrim] Allergy (Severe, Verified 08/22/18 12:10) rash trimethoprim [From Bactrim] Allergy (Severe, Verified 08/22/18 12:10) rash Penicillins Allergy (Unknown, Verified 08/22/18 12:10) Past Medical History - Social History Chew tobacco use (# tins/day): No Frequency of alcohol use: None Drug Abuse: None - Past Medical History Cardiac Medical History: Reports: Hx Congestive Heart Failure, Hx Coronary Artery Disease, Hx Heart Attack - x2, Hx Hypertension Denies: Hx DVT Pulmonary Medical History: Reports: Hx Pneumonia Denies: Hx Asthma, Hx Bronchitis, Hx COPD Neurological Medical History: Reports: Hx Cerebrovascular Accident - NO DAMAGE. Denies: Hx Seizures Endocrine Medical History: Reports: Hx Diabetes Mellitus Type 1, Hx Diabetes Mellitus Type 2 Renal/ Medical History: Reports: Hx End Stage Renal Disease. Denies: Hx Peritoneal Dialysis Malignancy Medical History: Reports: Hx Renal (Kidney) Cancer - s/p right nephrectomy September, GI Medical History: Reports: Hx Gastroesophageal Reflux Disease, Hx Hiatal Hernia. Denies: Hx Crohn's Disease, Hx Ulcerative Colitis Musculoskeltal Medical History: Reports Hx Arthritis - gout Skin Medical History: Denies Hx Psoriasis Psychiatric Medical History: Reports: Hx Depression Traumatic Medical History: Denies: Hx Traumatic Brain Injury Infectious Medical History: Denies: Hx C-Diff Past Surgical History: Reports: Hx Cardiac Catheterization - stent placement, Hx Cardiac Surgery - stent placement, Hx Cholecystectomy, Hx Coronary Stent - 2013, Hx Kidney (Renal Surgery) - R removal, Hx Orthopedic Surgery - left hand, left great toe amputation, Other - right nephrectomy for ca. Denies: Hx Hysterectomy - Immunizations Hx Diphtheria, Pertussis, Tetanus Vaccination: Yes History of Influenza Vaccine for 04/2017 - 09/2017 Season: Yes Influenza Administration Date for 04/2017 - 09/2017 Season: 04/10/17 Physical Exam - Vital signs Vitals: Temp Pulse Resp BP Pulse Ox 98.1 F 76 14 158/82 H 96 08/22/18 12:13 08/22/18 12:13 08/22/18 12:13 08/22/18 12:13 08/22/18 12:13 Course - Vital Signs Vital signs: Temp Pulse Resp BP Pulse Ox 98.1 F 76 14 158/82 H 96 08/22/18 12:13 08/22/18 12:13 08/22/18 12:13 08/22/18 12:13 08/22/18 12:13 Doctor's Discharge - Discharge Referrals: AMBAR LOPEZ MD [Primary Care Provider] - Follow up as needed
[2018-08-22 13:28] LABS: ABSOLUTE BASOPHILS # (AUTO) 0.1 10^3/uL (0.0-0.2); ABSOLUTE EOSINOPHILS # (AUTO) 0.4 10^3/uL (0.0-0.6); ABSOLUTE LYMPHOCYTES (AUTO) 2.9 10^3/uL (0.5-4.7); ABSOLUTE MONOCYTES (AUTO) 0.6 10^3/uL (0.1-1.4); BASOPHILS % (AUTO) 0.7 % (0-2); EOSINOPHILS % (AUTO) 3.6 % (0-6); HEMATOCRIT 34.3 % (36.0-47.0); HEMOGLOBIN 11.2 g/dL (12.0-15.5); LYMPHOCYTES % (AUTO) 26.2 % (13-45); MEAN CORPUSCULAR HEMOGLOBIN 27.3 pg (27.0-33.4); MEAN CORPUSCULAR HGB CONC 32.6 g/dL (32.0-36.0); MEAN CORPUSCULAR VOLUME 84 fl (80-97); MONOCYTES % (AUTO) 5.7 % (3-13); PLATELET COUNT 283 10^3/uL (150-450); SEGMENTED NEUTROPHILS % (AUTO) 63.8 % (42-78); TOTAL CELLS COUNTED % (AUTO) 100 %
[2018-08-22 13:42] LABS: ALANINE AMINOTRANSFERASE 20 U/L (9-52); ALBUMIN 4.1 g/dL (3.5-5.0); ALKALINE PHOSPHATASE 83 U/L (38-126); ANION GAP 10 (5-19); ASPARTATE AMINO TRANSFERASE 24 U/L (14-36); BILIRUBIN,DIRECT 0.3 mg/dL (0.0-0.4); BILIRUBIN,TOTAL 0.3 mg/dL (0.2-1.3); BLOOD UREA NITROGEN 20 mg/dL (7-20); CALCIUM 9.1 mg/dL (8.4-10.2); CARBON DIOXIDE 33 mmol/L (22-30); CHLORIDE 96 mmol/L (98-107); GLUCOSE 206 mg/dL (75-110); LIPASE 211.9 U/L (23-300); POTASSIUM 4.5 mmol/L (3.6-5.0); SODIUM 139.3 mmol/L (137-145); TOTAL PROTEIN 7.6 g/dL (6.3-8.2)
[2018-08-22 13:57] LABS: APPEARANCE,URINE CLEAR; BILIRUBIN,URINE NEGATIVE (NEGATIVE); COLOR,URINE STRAW; GLUCOSE, URINE NEGATIVE (NEGATIVE); KETONES,URINE NEGATIVE (NEGATIVE); LEUKOCYTE ESTERASE,URINE NEGATIVE (NEGATIVE); NITRITE,URINE NEGATIVE (NEGATIVE); PROTEIN,URINE NEGATIVE (NEGATIVE); URINE SPECIFIC GRAVITY 1.006; UROBILINOGEN,URINE NEGATIVE mg/dL (<2.0)
--- NOTE | 2018-08-22 14:02 | ER Document Report ---
ED General - General Chief Complaint: Flank Pain Stated Complaint: VOMITING Time Seen by Provider: 08/22/18 12:35 Mode of Arrival: Ambulatory Information source: Patient Notes: This is a 57-year-old female with a history of coronary artery disease, diabetes who presents to the emergency room with left lower abdominal tenderness, vomiting, subjective chills. Patient states she has had symptoms for the past 4 days. TRAVEL OUTSIDE OF THE [place] IN LAST 30 DAYS: No - HPI Onset: Last week Onset/Duration: Gradual Quality of pain: Dull Severity: Mild Pain Level: 2 Associated symptoms: Nausea, Vomiting, Other - Left lower quadrant abdominal pain. denies: Chest pain, Fever, Shortness of breath Exacerbated by: Denies Relieved by: Denies Similar symptoms previously: No Recently seen / treated by doctor: No - Related Data Allergies/Adverse Reactions: sulfamethoxazole [From Bactrim] Allergy (Severe, Verified 08/22/18 12:10) rash trimethoprim [From Bactrim] Allergy (Severe, Verified 08/22/18 12:10) rash Penicillins Allergy (Unknown, Verified 08/22/18 12:10) Past Medical History - General Information source: Patient - Social History Smoking Status: Former Smoker Cigarette use (# per day): No Chew tobacco use (# tins/day): No Frequency of alcohol use: None Drug Abuse: None Lives with: Family Family History: None, Hypertension Patient has suicidal ideation: No Patient has homicidal ideation: No - Past Medical History Cardiac Medical History: Reports: Hx Congestive Heart Failure, Hx Coronary Artery Disease, Hx Heart Attack - x2, Hx Hypertension Denies: Hx DVT Pulmonary Medical History: Reports: Hx Pneumonia Denies: Hx Asthma, Hx Bronchitis, Hx COPD Neurological Medical History: Reports: Hx Cerebrovascular Accident - NO DAMAGE. Denies: Hx Seizures Endocrine Medical History: Reports: Hx Diabetes Mellitus Type 1, Hx Diabetes Mellitus Type 2 Renal/ Medical History: Reports: Hx End Stage Renal Disease. Denies: Hx Peritoneal Dialysis Malignancy Medical History: Reports: Hx Renal (Kidney) Cancer - s/p right nephrectomy September, GI Medical History: Reports: Hx Gastroesophageal Reflux Disease, Hx Hiatal Hernia. Denies: Hx Crohn's Disease, Hx Ulcerative Colitis Musculoskeletal Medical History: Reports Hx Arthritis - gout Skin Medical History: Denies Hx Psoriasis Psychiatric Medical History: Reports: Hx Depression Traumatic Medical History: Denies: Hx Traumatic Brain Injury Infectious Medical History: Denies: Hx C-Diff Past Surgical History: Reports: Hx Cardiac Catheterization - stent placement, Hx Cardiac Surgery - stent placement, Hx Cholecystectomy, Hx Coronary Stent - 2013, Hx Kidney (Renal Surgery) - R removal, Hx Orthopedic Surgery - left hand, left great toe amputation, Other - right nephrectomy for ca. Denies: Hx Hysterectomy - Immunizations Hx Diphtheria, Pertussis, Tetanus Vaccination: Yes Hx Pneumococcal Vaccination: 07/11/13 Review of Systems - Review of Systems Constitutional: denies: Chills, Fever EENT: No symptoms reported Cardiovascular: denies: Chest pain, Palpitations, Heart racing Respiratory: denies: Cough, Hemoptysis, Wheezing Gastrointestinal: Abdominal pain, Nausea, Vomiting Genitourinary: No symptoms reported Female Genitourinary: No symptoms reported Musculoskeletal: No symptoms reported Skin: No symptoms reported Hematologic/Lymphatic: No symptoms reported Neurological/Psychological: No symptoms reported Physical Exam - Vital signs Vitals: Temp Pulse Resp BP Pulse Ox 98.1 F 76 14 158/82 H 96 08/22/18 12:13 08/22/18 12:13 08/22/18 12:13 08/22/18 12:13 08/22/18 12:13 Notes: Physical exam: GENERAL: Patient is alert and oriented x3, complaining of left lower side pain. HEAD: Atraumatic, normocephalic. EYES: Pupils equal round and reactive to light, extraocular movements intact, sclera anicteric, conjunctiva are normal. ENT: TMs normal, nares patent, oropharynx clear without exudates. Moist mucous membranes. NECK: Normal range of motion, supple without obvious mass or JVD. LUNGS: Breath sounds clear to auscultation bilaterally and equal. No wheezes rales or rhonchi. HEART: Regular rate and rhythm without murmurs, rubs or gallops. ABDOMEN: Soft, large abdomen. Normoactive bowel sounds. Patient does have tenderness to the left lower quadrant. No guarding, no rebound. No masses appreciated. Bedside ultrasound: No hydronephrosis EXTREMITIES: Normal range of motion, no pitting or edema. No clubbing or cyanosis. NEUROLOGICAL: Cranial nerves II through XII grossly intact. Normal speech, moving all extremities. PSYCH: Normal mood, normal affect. SKIN: Warm, Dry, normal turgor, no rashes or lesions noted. Course - Re-evaluation Re-evalutation: 08/22/18 17:43 Note: CAT scan was performed without IV contrast due to the patient's baseline chronic kidney disease and the fact that she has only one kidney. CT did not show any overt signs of surgical pathology. Patient is continued to have nausea and on repeat abdomen exam has left lower quadrant tenderness which is concerning to me for acute diverticulitis. Given her underlying diabetes, I am concerned that she is not going to be able to tolerate her medicines. Given this, I discussed the case with Dr. Nye and we will admit the patient for IV fluids, IV antibiotics and continued workup. - Vital Signs Vital signs: Temp Pulse Resp BP Pulse Ox 98.1 F 76 15 123/80 95 08/22/18 12:13 08/22/18 12:13 08/22/18 18:09 08/22/18 18:09 08/22/18 18:08 - Laboratory Result Diagrams: 08/22/18 13:07 08/22/18 13:07 Laboratory results interpreted by me: 08/22/18 08/22/18 13:07 13:07 WBC 11.0 H Hgb 11.2 L Hct 34.3 L RDW 15.0 H Chloride 96 L Carbon Dioxide 33 H Creatinine 1.66 H Est GFR ( Amer) 39 L Est GFR (Non-Af Amer) 32 L Glucose 206 H - Diagnostic Test Radiology reviewed: Image reviewed, Reports reviewed - CT abdomen shows no acute intra-abdominal pathology Discharge - Discharge Clinical Impression: Vomiting with nausea, Diverticulitis Condition: Stable Disposition: ADMITTED INPATIENT Admitting Provider: Pope[facility] Unit Admitted: Telemetry
--- NOTE | 2018-08-22 14:38 | RADIOLOGY REPORT (SQ) ---
EXAM DESCRIPTION: CT ABD/PELVIS NO ORAL OR IV COMPLETED DATE/TIME: 08/22/2018 2:21 pm REASON FOR STUDY: left lower abdominal pain COMPARISON: 02/17/2018 TECHNIQUE: CT scan of the abdomen and pelvis performed without intravenous or oral contrast. Images reviewed with lung, soft tissue, and bone windows. Reconstructed coronal and sagittal MPR images revi ewed. All images stored on PACS. All CT scanners at this facility use dose modulation, iterative reconstruction, and/or weight based d osing when appropriate to reduce radiation dose to as low as reasonably achievable (ALARA). [facility]: Dose Right [facility]: CareDose [facility]: Dose Right [facility]: Teradose 4D [facility]: reportbrain RADIATION DOSE: CT Rad equipment meets quality standard of care and radiation dose reduction techniq ues were employed. CTDIvol: 19.1 mGy. DLP: 1174 mGy-cm.mGy. LIMITATIONS: Body habitus. FINDINGS: LOWER CHEST: No significant findings. No nodules or infiltrates. NON-CONTRASTED LIVER, SPLEEN, ADRENALS: Evaluation limited by lack of IV contrast. No identified sign ificant masses. PANCREAS: No masses. No peripancreatic inflammatory changes. GALLBLADDER: Surgically absent. RIGHT KIDNEY AND URETER: Prior right nephrectomy. LEFT KIDNEY AND URETER: No solid masses. No significant calcification. No hydronephrosis or hydrouret er. AORTA AND RETROPERITONEUM: No aneurysm. No retroperitoneal masses or adenopathy. BOWEL AND PERITONEAL CAVITY: No obvious masses or inflammatory changes. No free fluid. APPENDIX: Not visualized. PELVIS, BLADDER, AND ABDOMINAL WALL:Large right lower quadrant lateral abdominal wall hernia containi ng nondilated bowel. Some the contents of the hernia excluded from the field of view. BONES: Nothing acute. OTHER: No other significant finding. IMPRESSION: No acute findings. Large right lower quadrant lateral hernia. Prior right nephrectomy. TECHNICAL DOCUMENTATION: JOB ID: [id number] Quality ID # [id number]: Final reports with documentation of one or more dose reduction techniques (e.g., Au tomated exposure control, adjustment of the mA and/or kV according to patient size, use of iterative reconstruction technique) 2010 [employer]- All Rights Reserved Reading location - IP/workstation name: [email or web address]
--- NOTE | 2018-08-22 14:38 | RADIOLOGY REPORT (SQ) ---
EXAM DESCRIPTION: KUB/ABDOMEN (SINGLE VIEW) COMPLETED DATE/TIME: 08/22/2018 1:48 pm REASON FOR STUDY: Abdominal pain COMPARISON: None. NUMBER OF VIEWS: One view. TECHNIQUE: Supine radiographic image of the abdomen acquired. LIMITATIONS: None. FINDINGS: BOWEL GAS PATTERN: Normal bowel gas pattern. No dilated loops. CALCIFICATIONS: No suspicious calcifications. SOFT TISSUES: No gross mass or suggestion of organomegaly. HARDWARE: None. BONES: No bone lesions or fracture. OTHER: No other significant finding. IMPRESSION: NO RADIOGRAPHIC EVIDENCE FOR ACUTE ABDOMINAL DISEASE. Reading location - IP/workstation name: [email or web address]
[2018-08-22 14:45] LABS: A TYPE INFLUENZA AG NEGATIVE (NEGATIVE); B INFLUENZA AG NEGATIVE (NEGATIVE)
[2018-08-22] MEDS ORDERED: METOCLOPRAMIDE HCL INJ/PF 10 MG/2 ML SDV IV ONE (16:54)
[2018-08-22] MEDS ORDERED: RINGERS SOLUTION,LACTATED 1,000 ML IV ONE (16:54)
[2018-08-22] MEDS ORDERED: DIPHENHYDRAMINE HCL 50 MG/ML VIAL IV ONE (16:55)
[2018-08-22] MEDS ORDERED: CIPROFLOXACIN 400 MG/D5W RTU 400 MG/200 ML RTUPB IV ONE (17:39)
--- NOTE | 2018-08-22 19:55 | PDOC H&P ---
History of Present Illness Admission Date/PCP: 08/22/18 17:49 AMBAR BRIANHARISShaneka Patient complains of: Nuase, Vomiting, Abdominal pain History of Present Illness: JESU ORR is a 57 year old female known to my practice who presented to the ED with 4 days history of nausea, vomiting and left lower abdominal pain. Patient reported episode of blood in her stool 2 days prior to her presentation. She claimed associated episodes of fever and chills. There was associated poor appetite and oral intake due to elicited and worsening abdominal pain with food. Her initial evaluation in the ED was remarkable for low grade leukocytosis and concern regarding persistent nausea and intolerant of oral intake despite administration f anti emetic. Her radiographic examination with CT abdomen and pelvis without contrast was unrevealing but her clinical examination and presenting symptoms are suggestive of diverticulitis. Her morbidities include Congestive Heart Failure, Coronary Artery Disease, Old myocardial infarction, Hypertension, Cerebrovascular Accident without residual deficit, - Diabetes Mellitus Type 2, Renal (Kidney) Cancer - s/p right nephrectomy September,, Gastroesophageal Reflux Disease, Hiatal and right sided abdominal wall Hernias, Gouty Arthritis, and Depression. She was advised hospitalization for further evaluation and management. Past Medical History Cardiac Medical History: Reports: Congestive Heart Failure, Coronary Artery Disease, Myocardial Infarction - x2, Hypertension Denies: DVT Pulmonary Medical History: Reports: Pneumonia Denies: Asthma, Bronchitis, Chronic Obstructive Pulmonary Disease (COPD) Neurological Medical History: Denies: Seizures Endocrine Medical History: Reports: Diabetes Mellitus Type 1, Diabetes Mellitus Type 2 Renal/ Medical History: Reports: End Stage Renal Disease Malignancy Medical History: Reports: Renal (Kidney) Cancer - s/p right nephrectomy September, GI Medical History: Reports: Gastroesophageal Reflux Disease, Hiatal Hernia Denies: Crohn's Disease, Ulcerative Colitis Musculoskeltal Medical History: Reports: Arthritis - gout Skin Medical History: Denies: Psoriasis Psychiatric Medical History: Reports: Depression Traumatic Medical History: Denies: Traumatic Brain Injury Hematology: Reports: Anemia Infectious Medical History: Denies: Clostridium Difficile Past Surgical History Past Surgical History: Reports: Cardiac Catheterization - stent placement, Cholecystectomy, Coronary Stent - 2013, Orthopedic Surgery - left hand, left great toe amputation, Other - right nephrectomy for ca Denies: Hysterectomy Social History Lives with: Family Smoking Status: Former Smoker Frequency of Alcohol Use: None Hx Recreational Drug Use: No Drugs: None Hx Prescription Drug Abuse: No - Advance Directive Resuscitation Status: Full Code Family History Family History: None, Hypertension Parental Family History Reviewed: Yes Children Family History Reviewed: Yes Sibling(s) Family History Reviewed.: Yes Medication/Allergy Home Medications: Alprazolam [Xanax] 0.5 mg PO TID 06/26/18 Aspirin [Lo-Dose Aspirin EC] 81 mg PO DAILY 06/26/18 Fluoxetine HCl 40 mg PO BID 06/26/18 Gabapentin 600 mg PO DAILY 06/26/18 Insulin Degludec [Tresiba Flextouch U-100] 100 unit SQ ASDIR PRN 06/26/18 Insulin Lispro [Humalog Abhijeet Kwikpen] 100 unit SQ ASDIR PRN 06/26/18 Isosorbide Dinitrate 30 mg PO BID 06/26/18 Liraglutide [Victoza 2-Thong] 0.6 mg SQ DAILY 06/26/18 Metoprolol Tartrate [Lopressor 100 mg Tablet] 100 mg PO BID 06/26/18 Nitroglycerin 0.3 mg SL PRN PRN 06/26/18 Omeprazole 40 mg PO AC 06/26/18 Ondansetron [Zofran Odt 4 mg Tablet] 1 - 2 tab PO Q8H PRN 06/26/18 Oxycodone HCl [Oxycodone HCl 10 MG Tablet] 10 mg PO DAILY 06/26/18 Ranitidine HCl 150 mg PO BID 06/26/18 Ranolazine [Ranexa 500 mg Tab.sr] 500 mg PO Q12 06/26/18 Allergies/Adverse Reactions: sulfamethoxazole [From Bactrim] Allergy (Severe, Verified 08/22/18 12:10) rash trimethoprim [From Bactrim] Allergy (Severe, Verified 08/22/18 12:10) rash Penicillins Allergy (Unknown, Verified 08/22/18 12:10) Review of Systems Constitutional: PRESENT: chills, fever(s). ABSENT: as per HPI, anorexia, fa tigue, headache(s), night sweats, weakness, weight gain, weight loss, other Eyes: ABSENT: visual disturbances Ears: ABSENT: hearing changes Nose, Mouth, and Throat: ABSENT: as per HPI, headache(s), mouth pain, sore throat, vertigo, other Cardiovascular: ABSENT: chest pain, dyspnea on exertion, edema, orthropnea, palpitations Respiratory: ABSENT: cough, hemoptysis Gastrointestinal: PRESENT: abdominal pain - Left lowerr abdominal region, nausea, vomiting. ABSENT: as per HPI, bloating, coffee ground emesis, constipation, diarrhea, dysphagia, heartburn, hematemesis, hematochezia, melena, other Genitourinary: ABSENT: dysuria, hematuria Musculoskeletal: ABSENT: joint swelling Integumentary: ABSENT: rash, wounds Neurological: ABSENT: abnormal gait, abnormal speech, confusion, dizziness, focal weakness, syncope Psychiatric: ABSENT: anxiety, depression, homidical ideation, suicidal ideation Endocrine: ABSENT: cold intolerance, heat intolerance, polydipsia, polyuria Hematologic/Lymphatic: ABSENT: easy bleeding, easy bruising, lymphadenopathy Allergic/Immunologic: ABSENT: seasonal rhinorrhea Physical Exam Vital Signs: Temp Pulse Resp BP Pulse Ox 98.4 F 72 17 140/69 H 92 08/22/18 18:29 08/22/18 18:29 08/22/18 18:29 08/22/18 18:29 08/22/18 18:29 Intake & Output 08/21/18 08/22/18 08/23/18 06:59 06:59 06:59 Intake Total 1200 Balance 1200 Weight 132.959 kg General appearance: PRESENT: no acute distress, morbidly obese Head exam: PRESENT: atraumatic, normocephalic Eye exam: PRESENT: conjunctiva pink, EOMI, PERRLA. ABSENT: scleral icterus Ear exam: PRESENT: normal external ear exam Mouth exam: PRESENT: moist Neck exam: PRESENT: full ROM. ABSENT: carotid bruit, JVD, lymphadenopathy, thyromegaly Respiratory exam: PRESENT: clear to auscultation tarsha Cardiovascular exam: PRESENT: RRR. ABSENT: diastolic murmur, rubs, systolic murmur Vascular exam: PRESENT: normal capillary refill. ABSENT: pallor GI/Abdominal exam: PRESENT: normal bowel sounds, soft, tenderness - LLQ to deep palpation. ABSENT: distended, guarding, mass, organolmegaly, rebound Rectal exam: PRESENT: deferred Extremities exam: ABSENT: pedal edema Musculoskeletal exam: PRESENT: deformity - related to mulytiple joints involvement with arthritis. ABSENT: ambulatory, dislocation, full ROM, normal inspection, tenderness, other Neurological exam: PRESENT: alert, awake, oriented to person, oriented to place, oriented to time, oriented to situation, CN II-XII grossly intact. ABSENT: motor sensory deficit Psychiatric exam: PRESENT: appropriate affect, normal mood. ABSENT: homicidal ideation, suicidal ideation Skin exam: PRESENT: dry, intact, warm. ABSENT: cyanosis, rash Results Laboratory Results: 08/22/18 13:07 08/22/18 13:07 08/22/18 08/22/18 08/22/18 13:07 13:07 13:07 WBC 11.0 H RBC 4.10 Hgb 11.2 L Hct 34.3 L MCV 84 MCH 27.3 MCHC 32.6 RDW 15.0 H Plt Count 283 Seg Neutrophils % 63.8 Lymphocytes % 26.2 Monocytes % 5.7 Eosinophils % 3.6 Basophils % 0.7 Absolute Neutrophils 7.0 Absolute Lymphocytes 2.9 Absolute Monocytes 0.6 Absolute Eosinophils 0.4 Absolute Basophils 0.1 Sodium 139.3 Potassium 4.5 Chloride 96 L Carbon Dioxide 33 H Anion Gap 10 BUN 20 Creatinine 1.66 H Est GFR ( Amer) 39 L Est GFR (Non-Af Amer) 32 L Glucose 206 H Calcium 9.1 Total Bilirubin 0.3 AST 24 ALT 20 Alkaline Phosphatase 83 Total Protein 7.6 Albumin 4.1 Lipase 211.9 Urine Color STRAW Urine Appearance CLEAR Urine pH 8.0 Ur Specific [place] 1.006 Urine Protein NEGATIVE Urine Glucose (UA) NEGATIVE Urine Ketones NEGATIVE Urine Blood NEGATIVE Urine Nitrite NEGATIVE Ur Leukocyte Esterase NEGATIVE Urine WBC (Auto) 1 Impressions: KUB X-Ray 08/22/18 12:39 IMPRESSION: NO RADIOGRAPHIC EVIDENCE FOR ACUTE ABDOMINAL DISEASE. Abdomen/Pelvis CT 08/22/18 14:09 IMPRESSION: No acute findings. Large right lower quadrant lateral hernia. Prior right nephrectomy. Assessment & Plan - Diagnosis (1) Nausea & vomiting Qualifiers: Vomiting type: unspecified Vomiting Intractability: unspecified Qualified Code(s): R11.2 - Nausea with vomiting, unspecified Is this a current diagnosis for this admission?: Yes Plan: Maintain on gentle IV hydration and IV antiemetic medication management. (2) Diverticulitis large intestine Qualifiers: Diverticulitis bleeding: unspecified bleeding status Diverticulitis complication: unspecified complication status Qualified Code(s): K57.32 - Diverticulitis of large intestine without perforation or abscess without bleeding Is this a current diagnosis for this admission?: Yes Plan: Maintain on IV Ciprofloxacin and Metronidazole therapy. (3) Diabetes mellitus type 2 in obese Is this a current diagnosis for this admission?: Yes Plan: Maintain on pre-admission medication management. (4) Chronic CHF (congestive heart failure) Qualifiers: Heart failure type: systolic Qualified Code(s): I50.22 - Chronic systolic (congestive) heart failure Is this a current diagnosis for this admission?: Yes Plan: Maintain on pre-admission medication management. (5) Hypertension Qualifiers: Hypertension type: essential hypertension Qualified Code(s): I10 - Essential (primary) hypertension Is this a current diagnosis for this admission?: Yes Plan: Maintain on pre-admission medication management. (6) Hyperlipidemia Qualifiers: Hyperlipidemia type: pure hypercholesterolemia Qualified Code(s): E78.00 - Pure hypercholesterolemia, unspecified Is this a current diagnosis for this admission?: Yes Plan: Maintain on pre-admission medication management. (7) Morbid obesity with BMI of 45.0-49.9, adult Is this a current diagnosis for this admission?: Yes Plan: Maintain on dietary and lifestyle [id number] management. - Time Time Spent: 50 to 70 Minutes Medications reviewed and adjusted accordingly: Yes Anticipated discharge: Home with Homehealth Within: Other - Inpatient Certification Based on my medical assessment, after consideration of the patient's comorbidities, presenting symptoms, or acuity I expect that the services needed warrant INPATIENT care.: Yes I certify that my determination is in accordance with my understanding of Medicare's requirements for reasonable and necessary INPATIENT services [42 CFR 412.3e].: Yes Medical Necessity: Significant Comorbidiites Make Outpatient Treatment Too Risky, Need Close Monitoring Due to Risk of Patient Decompensation, Need For IV Fluids, Need For Continuous Telemetry Monitoring, Need for Pain Control, Need for IV Antibiotics, Risk of Complication if Not Cared For in Hospital, Risk of Diagnosis Which Will Require Inpatient Eval/Care/Monitoring Post Hospital Care: D/C Senior Sales Representative Documentation - Plan Summary Plan Summary: See admitting attending physician orders as per outlined care plan. I discussed care plan with patient and she is in agreement.
[2018-08-22] MEDS ORDERED: GLUCAGON,HUMAN RECOMB 1 MG INJ IM PRN (19:57)
[2018-08-22] MEDS ORDERED: DEXTROSE 50%-WATER 25 GM/50 ML DISP.SYRIN IV PRN ×2 (19:57)
[2018-08-22] MEDS ORDERED: NORMAL SALINE 1000 ML 1,000 ML IV PRN (19:57)
[2018-08-22] MEDS ORDERED: DEXTROSE 40% GEL 15 GM TUBE PO PRN ×2 (19:57)
[2018-08-22] MEDS ORDERED: METRONIDAZOLE 500 MG/NS RTU 500 MG/100 ML RTUPB IV ONE (20:00)
[2018-08-22] MEDS ORDERED: ONDANSETRON HCL INJ/PF 4 MG/2 ML SDV IV PRN (20:03)
[2018-08-22] MEDS: INSULIN LISPRO 100 UNIT/ML 3 ML VIAL SUBCUT SCH (22:58)
[2018-08-22] MEDS: HEPARIN SOD (PORCINE) 5,000 UNIT/ML 1 ML SYRINGE SUBCUT SCH (23:03)
[2018-08-23] MEDS: MORPHINE SULFATE 10 MG/ML INJ IV PRN ×4 (03:59→20:01)
[2018-08-23] MEDS: METRONIDAZOLE 500 MG/NS RTU 500 MG/100 ML RTUPB IV SCH ×4 (04:00→21:53)
[2018-08-23] MEDS: CIPROFLOXACIN 200 MG/D5W RTU 200 MG/100 ML RTUPB IV SCH ×2 (06:09→17:10)
[2018-08-23] MEDS: HEPARIN SOD (PORCINE) 5,000 UNIT/ML 1 ML SYRINGE SUBCUT SCH ×3 (06:09→21:53)
[2018-08-23] MEDS: LANSOPRAZOLE 30 MG TAB.RAP.DR PO SCH (06:14)
[2018-08-23] MEDS: INSULIN LISPRO 100 UNIT/ML 3 ML VIAL SUBCUT SCH ×4 (07:51→21:54)
[2018-08-23] MEDS ORDERED: NITROGLYCERIN 0.3 MG SL PRN (08:37)
[2018-08-23] MEDS ORDERED: ALPRAZOLAM 0.5 MG TABLET PO PRN (08:37)
[2018-08-23 08:45] LABS: ABSOLUTE BASOPHILS # (AUTO) 0.1 10^3/uL (0.0-0.2); ABSOLUTE EOSINOPHILS # (AUTO) 0.3 10^3/uL (0.0-0.6); ABSOLUTE LYMPHOCYTES (AUTO) 2.2 10^3/uL (0.5-4.7); ABSOLUTE MONOCYTES (AUTO) 0.4 10^3/uL (0.1-1.4); ABSOLUTE NEUT (AUTO) 5.6 10^3/uL (1.7-8.2); BASOPHILS % (AUTO) 0.9 % (0-2); EOSINOPHILS % (AUTO) 3.2 % (0-6); HEMATOCRIT 34.3 % (36.0-47.0); HEMOGLOBIN 11.2 g/dL (12.0-15.5); LYMPHOCYTES % (AUTO) 25.9 % (13-45); MEAN CORPUSCULAR HGB CONC 32.5 g/dL (32.0-36.0); MEAN CORPUSCULAR VOLUME 83 fl (80-97); MONOCYTES % (AUTO) 4.7 % (3-13); PLATELET COUNT 269 10^3/uL (150-450); RED BLOOD COUNT 4.14 10^6/uL (3.72-5.28); RED CELL DISTRIBUTION WIDTH 14.6 % (11.5-14.0); SEGMENTED NEUTROPHILS % (AUTO) 65.3 % (42-78); TOTAL CELLS COUNTED % (AUTO) 100 %; WHITE BLOOD COUNT 8.6 10^3/uL (4.0-10.5)
[2018-08-23 09:01] LABS: ALANINE AMINOTRANSFERASE 24 U/L (9-52); ALKALINE PHOSPHATASE 81 U/L (38-126); ANION GAP 8 (5-19); ASPARTATE AMINO TRANSFERASE 35 U/L (14-36); BILIRUBIN,DIRECT 0.3 mg/dL (0.0-0.4); BILIRUBIN,TOTAL 0.4 mg/dL (0.2-1.3); BLOOD UREA NITROGEN 18 mg/dL (7-20); CARBON DIOXIDE 32 mmol/L (22-30); CHLORIDE 99 mmol/L (98-107); GLUCOSE 199 mg/dL (75-110); POTASSIUM 4.4 mmol/L (3.6-5.0); SODIUM 139.2 mmol/L (137-145); TOTAL PROTEIN 7.4 g/dL (6.3-8.2)
[2018-08-23] MEDS ORDERED: NITROGLYCERIN 0.4 MG/TAB 25 TAB/BOTTLE SL PRN (09:57)
[2018-08-23] MEDS ORDERED: (PENDING PHARMACY ID) (Insulin Degludec [Tresiba Flextouch U-100] 50 UNIT) SQ SCH (10:00)
[2018-08-23] MEDS: ISOSORBIDE MONONITRATE 30 MG TAB.ER.24H PO SCH (10:30)
[2018-08-23] MEDS: METOPROLOL TARTRATE 100 MG TABLET PO SCH (10:30)
[2018-08-23] MEDS: ARIPIPRAZOLE 5 MG TABLET PO SCH (10:30)
[2018-08-23] MEDS: FERROUS SULFATE 325 MG TABLET PO SCH (10:30)
[2018-08-23] MEDS: ASPIRIN 81 MG TABLET, ENT COATED PO SCH (10:30)
[2018-08-23] MEDS: DOCUSATE SODIUM 100 MG CAPSULE PO SCH (10:30)
[2018-08-23] MEDS ORDERED: FUROSEMIDE 20 MG TABLET PO ONE (12:00)
[2018-08-23] MEDS: HYDRALAZINE HCL 25 MG TABLET PO SCH ×2 (13:03→21:53)
[2018-08-23] MEDS: GABAPENTIN 300 MG CAPSULE PO SCH ×2 (13:04→21:53)
[2018-08-23] MEDS: FLUOXETINE HCL 20 MG CAPSULE PO SCH ×2 (13:04→21:53)
[2018-08-23] MEDS: ACETAMINOPHEN 325 MG TABLET PO PRN (17:09)
--- NOTE | 2018-08-23 18:09 | PDOC PROGRESS REPORT ---
Subjective Progress Note for:: 08/23/18 Subjective:: Tolerating full liquid diet. No nausea or vomiting. There is abdominal pain with feeding and bowel movement. There is hyperglycemia due to nonformulary status of most of her Tresiba Insulin and Victoza in the hospital. No fever or chills. Remain on IV Ciprofloxacin and Flagyl therapy. Reason For Visit: VOMITING WITH NAUSEA,DIVERTICULITIS OF LARGE COLON Physical Exam Vital Signs: Temp Pulse Resp BP Pulse Ox 97.7 F 71 18 152/82 H 95 08/23/18 08:20 08/23/18 08:20 08/23/18 08:20 08/23/18 08:20 08/23/18 08:20 Intake & Output 08/22/18 08/23/18 08/24/18 06:59 06:59 06:59 Intake Total 2400 100 Balance 2400 100 Weight 132.9 kg General appearance: PRESENT: no acute distress, morbidly obese Head exam: PRESENT: atraumatic, normocephalic Ear exam: PRESENT: normal external ear exam Mouth exam: PRESENT: moist Respiratory exam: PRESENT: clear to auscultation tarsha Cardiovascular exam: PRESENT: RRR. ABSENT: diastolic murmur, rubs, systolic murmur Vascular exam: ABSENT: pallor GI/Abdominal exam: PRESENT: normal bowel sounds, soft, tenderness - LLQ to deep palpation. ABSENT: distended, guarding, mass, organolmegaly, rebound Extremities exam: ABSENT: pedal edema Neurological exam: PRESENT: alert, awake, oriented to person, oriented to place, oriented to time, oriented to situation, CN II-XII grossly intact. ABSENT: motor sensory deficit Psychiatric exam: PRESENT: appropriate affect, normal mood. ABSENT: homicidal ideation, suicidal ideation Skin exam: PRESENT: dry, intact, warm. ABSENT: cyanosis, rash Results Laboratory Results: 08/23/18 08:15 08/22/18 08/22/18 08/22/18 13:07 13:07 13:07 WBC 11.0 H RBC 4.10 Hgb 11.2 L Hct 34.3 L MCV 84 MCH 27.3 MCHC 32.6 RDW 15.0 H Plt Count 283 Seg Neutrophils % 63.8 Lymphocytes % 26.2 Monocytes % 5.7 Eosinophils % 3.6 Basophils % 0.7 Absolute Neutrophils 7.0 Absolute Lymphocytes 2.9 Absolute Monocytes 0.6 Absolute Eosinophils 0.4 Absolute Basophils 0.1 Sodium 139.3 Potassium 4.5 Chloride 96 L Carbon Dioxide 33 H Anion Gap 10 BUN 20 Creatinine 1.66 H Est GFR ( Amer) 39 L Est GFR (Non-Af Amer) 32 L Glucose 206 H Calcium 9.1 Total Bilirubin 0.3 AST 24 ALT 20 Alkaline Phosphatase 83 Total Protein 7.6 Albumin 4.1 Lipase 211.9 Urine Color STRAW Urine Appearance CLEAR Urine pH 8.0 Ur Specific [place] 1.006 Urine Protein NEGATIVE Urine Glucose (UA) NEGATIVE Urine Ketones NEGATIVE Urine Blood NEGATIVE Urine Nitrite NEGATIVE Ur Leukocyte Esterase NEGATIVE Urine WBC (Auto) 1 08/23/18 08:15 WBC 8.6 RBC 4.14 Hgb 11.2 L Hct 34.3 L MCV 83 MCH 27.0 MCHC 32.5 RDW 14.6 H Plt Count 269 Seg Neutrophils % 65.3 Lymphocytes % 25.9 Monocytes % 4.7 Eosinophils % 3.2 Basophils % 0.9 Absolute Neutrophils 5.6 Absolute Lymphocytes 2.2 Absolute Monocytes 0.4 Absolute Eosinophils 0.3 Absolute Basophils 0.1 Sodium Potassium Chloride Carbon Dioxide Anion Gap BUN Creatinine Est GFR ( Amer) Est GFR (Non-Af Amer) Glucose Calcium Total Bilirubin AST ALT Alkaline Phosphatase Total Protein Albumin Lipase Urine Color Urine Appearance Urine pH Ur Specific [place] Urine Protein Urine Glucose (UA) Urine Ketones Urine Blood Urine Nitrite Ur Leukocyte Esterase Urine WBC (Auto) Impressions: KUB X-Ray 08/22/18 12:39 IMPRESSION: NO RADIOGRAPHIC EVIDENCE FOR ACUTE ABDOMINAL DISEASE. Abdomen/Pelvis CT 08/22/18 14:09 IMPRESSION: No acute findings. Large right lower quadrant lateral hernia. P rior right nephrectomy. Assessment & Plan - Diagnosis (1) Nausea & vomiting Qualifiers: Vomiting type: unspecified Vomiting Intractability: unspecified Qualified Code(s): R11.2 - Nausea with vomiting, unspecified Is this a current diagnosis for this admission?: Yes (2) Diverticulitis large intestine Qualifiers: Diverticulitis bleeding: unspecified bleeding status Diverticulitis complication: unspecified complication status Qualified Code(s): K57.32 - Diverticulitis of large intestine without perforation or abscess without bl eeding Is this a current diagnosis for this admission?: Yes (3) Diabetes mellitus type 2 in obese Is this a current diagnosis for this admission?: Yes (4) Chronic CHF (congestive heart failure) Qualifiers: Heart failure type: systolic Qualified Code(s): I50.22 - Chronic systolic (congestive) heart failure Is this a current diagnosis for this admission?: Yes (5) Hypertension Qualifiers: Hypertension type: essential hypertension Qualified Code(s): I10 - Essential (primary) hypertension Is this a current diagnosis for this admission?: Yes (6) Hyperlipidemia Qualifiers: Hyperlipidemia type: pure hypercholesterolemia Qualified Code(s): E78.00 - Pure hypercholesterolemia, unspecified Is this a current diagnosis for this admission?: Yes (7) Morbid obesity with BMI of 45.0-49.9, adult Is this a current diagnosis for this admission?: Yes - Time Time Spent with patient: 25-34 minutes Medications reviewed and adjusted accordingly: Yes Anticipated discharge: Home with Homehealth Within: Other - Inpatient Certification Based on my medical assessment, after consideration of the patient's comorbidities, presenting symptoms, or acuity I expect that the services needed warrant INPATIENT care.: Yes I certify that my determination is in accordance with my understanding of Medicare's requirements for reasonable and necessary INPATIENT services [42 CFR 412.3e].: Yes Medical Necessity: Need Close Monitoring Due to Risk of Patient Decompensation, Need For IV Fluids, Need For Continuous Telemetry Monitoring, Need for Pain Control, Need for IV Antibiotics, Risk of Complication if Not Cared For in Hospital, Risk of Diagnosis Which Will Require Inpatient Eval/Care/Monitoring Post Hospital Care: D/C Special Weapons And Tactics Officer Documentation - Plan Summary Plan Summary: Continue current medication management. Start on Lantus Insulin as substitution for her Tresiba while on admission. Advance diet to mechanical soft. Obtain CBC and BMP in am.
[2018-08-23] MEDS: CYCLOBENZAPRINE HCL 10 MG TABLET PO SCH (21:53)
[2018-08-23] MEDS: TRAZODONE HCL 50 MG TABLET PO SCH (21:53)
[2018-08-23] MEDS: INSULIN DETEMIR 100 UNIT/ML 3 ML PEN SUBCUT SCH (21:54)
[2018-08-23] MEDS ORDERED: (PENDING PHARMACY ID) (Trazodone Hcl [Desyrel] 100 MG) PO SCH (22:00)
[2018-08-24] MEDS: METRONIDAZOLE 500 MG/NS RTU 500 MG/100 ML RTUPB IV SCH ×3 (04:07→15:23)
[2018-08-24] MEDS: MORPHINE SULFATE 10 MG/ML INJ IV PRN ×4 (04:49→20:39)
[2018-08-24] MEDS: GABAPENTIN 300 MG CAPSULE PO SCH ×3 (05:29→21:13)
[2018-08-24] MEDS: LANSOPRAZOLE 30 MG TAB.RAP.DR PO SCH (05:29)
[2018-08-24] MEDS: HYDRALAZINE HCL 25 MG TABLET PO SCH ×3 (05:29→21:14)
[2018-08-24] MEDS: FLUOXETINE HCL 20 MG CAPSULE PO SCH ×3 (05:30→21:15)
[2018-08-24] MEDS: HEPARIN SOD (PORCINE) 5,000 UNIT/ML 1 ML SYRINGE SUBCUT SCH ×3 (05:30→21:16)
[2018-08-24] MEDS: CIPROFLOXACIN 200 MG/D5W RTU 200 MG/100 ML RTUPB IV SCH ×2 (05:34→17:24)
[2018-08-24] MEDS: INSULIN LISPRO 100 UNIT/ML 3 ML VIAL SUBCUT SCH ×4 (07:50→21:16)
[2018-08-24] MEDS: FUROSEMIDE 20 MG TABLET PO SCH (07:58)
--- NOTE | 2018-08-24 08:30 | PDOC PROGRESS REPORT ---
Subjective Progress Note for:: 08/24/18 Subjective:: No chest pain or difficulty with breathing. No recurrent nausea or vomiting. No fever or chills. Reason For Visit: VOMITING WITH NAUSEA,DIVERTICULITIS OF LARGE COLON Physical Exam Vital Signs: Temp Pulse Resp BP Pulse Ox 98.1 F 74 16 132/70 H 97 08/24/18 03:35 08/24/18 03:35 08/24/18 04:39 08/24/18 03:35 08/24/18 04:39 Intake & Output 08/23/18 08/24/18 08/25/18 06:59 06:59 06:59 Intake Total 2400 2839 Output Total 25 Balance 2400 2814 Weight 132.9 kg 132.9 kg Physical Exam: General appearance: PRESENT: no acute distress, morbidly obese Head exam: PRESENT: atraumatic, normocephalic Ear exam: PRESENT: normal external ear exam Mouth exam: PRESENT: moist Respiratory exam: PRESENT: clear to auscultation tarsha Cardiovascular exam: PRESENT: RRR. ABSENT: diastolic murmur, rubs, systolic murmur Vascular exam: ABSENT: pallor GI/Abdominal exam: PRESENT: normal bowel sounds, soft ABSENT: tenderness, d istended, guarding, mass, organomegaly, rebound Extremities exam: ABSENT: pedal edema Neurological exam: PRESENT: alert, awake, oriented to person, oriented to place, oriented to time, oriented to situation, CN II-XII grossly intact. ABSENT: motor sensory deficit Psychiatric exam: PRESENT: appropriate affect, normal mood. ABSENT: homicidal ideation, suicidal ideation Skin exam: PRESENT: dry, intact, warm. ABSENT: cyanosis, rash Results Laboratory Results: 08/23/18 08:15 08/23/18 08:15 08/23/18 08/23/18 08:15 08:15 WBC 8.6 RBC 4.14 Hgb 11.2 L Hct 34.3 L MCV 83 MCH 27.0 MCHC 32.5 RDW 14.6 H Plt Count 269 Seg Neutrophils % 65.3 Lymphocytes % 25.9 Monocytes % 4.7 Eosinophils % 3.2 Basophils % 0.9 Absolute Neutrophils 5.6 Absolute Lymphocytes 2.2 Absolute Monocytes 0.4 Absolute Eosinophils 0.3 Absolute Basophils 0.1 Sodium 139.2 Potassium 4.4 Chloride 99 Carbon Dioxide 32 H Anion Gap 8 BUN 18 Creatinine 1.55 H Est GFR ( Amer) 42 L Est GFR (Non-Af Amer) 35 L Glucose 199 H Calcium 9.0 Total Bilirubin 0.4 AST 35 ALT 24 Alkaline Phosphatase 81 Total Protein 7.4 Albumin 4.0 Impressions: KUB X-Ray 08/22/18 12:39 IMPRESSION: NO RADIOGRAPHIC EVIDENCE FOR ACUTE ABDOMINAL DISEASE. Abdomen/Pelvis CT 08/22/18 14:09 IMPRESSION: No acute findings. Large right lower quadrant lateral hernia. Prior right nephrectomy. Assessment & Plan - Diagnosis (1) Nausea & vomiting Qualifiers: Vomiting type: unspecified Vomiting Intractability: unspecified Qualified Code(s): R11.2 - Nausea with vomiting, unspecified Is this a current diagnosis for this admission?: Yes (2) Diverticulitis large intestine Qualifiers: Diverticulitis bleeding: unspecified bleeding status Diverticulitis complic ation: unspecified complication status Qualified Code(s): K57.32 - Diverticulitis of large intestine without perforation or abscess without bleeding Is this a current diagnosis for this admission?: Yes (3) Diabetes mellitus type 2 in obese Is this a current diagnosis for this admission?: Yes (4) Chronic CHF (congestive heart failure) Qualifiers: Heart failure type: systolic Qualified Code(s): I50.22 - Chronic systolic (congestive) heart failure Is this a current diagnosis for this admission?: Yes (5) Hypertension Qualifiers: Hypertension type: essential hypertension Qualified Code(s): I10 - Essential (primary) hypertension Is this a current diagnosis for this admission?: Yes (6) Hyperlipidemia Qualifiers: Hyperlipidemia type: pure hypercholesterolemia Qualified Code(s): E78.00 - Pure hypercholesterolemia, unspecified Is this a current diagnosis for this admission?: Yes (7) Morbid obesity with BMI of 45.0-49.9, adult Is this a current diagnosis for this admission?: Yes - Time Time Spent with patient: 25-34 minutes Medications reviewed and adjusted accordingly: Yes Anticipated discharge: Home Within: Other - Inpatient Certification Based on my medical assessment, after consideration of the patient's comorbidities, presenting symptoms, or acuity I expect that the services needed warrant INPATIENT care.: Yes I certify that my determination is in accordance with my understanding of Medicare's requirements for reasonable and necessary INPATIENT services [42 CFR 412.3e].: Yes Medical Necessity: Significant Comorbidiites Make Outpatient Treatment Too Risky, Need Close Monitoring Due to Risk of Patient Decompensation, Need For IV Fluids, Need For Continuous Telemetry Monitoring, Need for IV Antibiotics, Risk of Complication if Not Cared For in Hospital, Risk of Diagnosis Which Will Require Inpatient Eval/Care/Monitoring Post Hospital Care: D/C Roll On Worker Documentation - Plan Summary Plan Summary: Continue current medication management. Follow up on blood culture findings.
[2018-08-24] MEDS: ISOSORBIDE MONONITRATE 30 MG TAB.ER.24H PO SCH (09:00)
[2018-08-24] MEDS: METOPROLOL TARTRATE 100 MG TABLET PO SCH (09:00)
[2018-08-24] MEDS: ASPIRIN 81 MG TABLET, ENT COATED PO SCH (09:00)
[2018-08-24] MEDS: ARIPIPRAZOLE 5 MG TABLET PO SCH (09:00)
[2018-08-24] MEDS: DOCUSATE SODIUM 100 MG CAPSULE PO SCH (09:00)
[2018-08-24] MEDS: INSULIN DETEMIR 100 UNIT/ML 3 ML PEN SUBCUT SCH ×2 (09:01→21:16)
[2018-08-24] MEDS: FERROUS SULFATE 325 MG TABLET PO SCH (09:01)
[2018-08-24] MEDS: METRONIDAZOLE 500 MG TABLET PO SCH (21:11)
[2018-08-24] MEDS: CIPROFLOXACIN HCL 500 MG TABLET PO SCH (21:11)
[2018-08-24] MEDS: TRAZODONE HCL 50 MG TABLET PO SCH (21:12)
[2018-08-24] MEDS: CYCLOBENZAPRINE HCL 10 MG TABLET PO SCH (21:12)
[2018-08-25] MEDS: HEPARIN SOD (PORCINE) 5,000 UNIT/ML 1 ML SYRINGE SUBCUT SCH ×2 (06:04→14:17)
[2018-08-25] MEDS: LANSOPRAZOLE 30 MG TAB.RAP.DR PO SCH (06:04)
[2018-08-25] MEDS: FLUOXETINE HCL 20 MG CAPSULE PO SCH ×2 (06:05→14:17)
[2018-08-25] MEDS: GABAPENTIN 300 MG CAPSULE PO SCH ×2 (06:05→14:17)
[2018-08-25] MEDS: HYDRALAZINE HCL 25 MG TABLET PO SCH ×2 (06:05→14:17)
[2018-08-25] MEDS: METRONIDAZOLE 500 MG TABLET PO SCH ×2 (06:11→14:23)
[2018-08-25] MEDS: INSULIN LISPRO 100 UNIT/ML 3 ML VIAL SUBCUT SCH ×3 (08:02→16:41)
[2018-08-25] MEDS: FUROSEMIDE 20 MG TABLET PO SCH (08:02)
[2018-08-25] MEDS: MORPHINE SULFATE 10 MG/ML INJ IV PRN ×2 (09:20→14:23)
[2018-08-25] MEDS: METOPROLOL TARTRATE 100 MG TABLET PO SCH (09:21)
[2018-08-25] MEDS: ACETAMINOPHEN 325 MG TABLET PO PRN ×2 (09:21→14:18)
[2018-08-25] MEDS: DOCUSATE SODIUM 100 MG CAPSULE PO SCH (09:21)
[2018-08-25] MEDS: ISOSORBIDE MONONITRATE 30 MG TAB.ER.24H PO SCH (09:22)
[2018-08-25] MEDS: ARIPIPRAZOLE 5 MG TABLET PO SCH (09:22)
[2018-08-25] MEDS: FERROUS SULFATE 325 MG TABLET PO SCH (09:22)
[2018-08-25] MEDS: ASPIRIN 81 MG TABLET, ENT COATED PO SCH (09:22)
[2018-08-25] MEDS: CIPROFLOXACIN HCL 500 MG TABLET PO SCH (09:30)
[2018-08-25] MEDS: INSULIN DETEMIR 100 UNIT/ML 3 ML PEN SUBCUT SCH (09:32)
--- NOTE | 2018-08-25 15:41 | PDOC DISCHARGE SUMMARY ---
General - Admit/Disc Date/PCP Admission Date/Primary Care Provider: 08/22/18 17:49 AMBAR LOPEZ Discharge Date: 08/25/18 - Discharge Diagnosis (1) Nausea & vomiting Is this a current diagnosis for this admission?: Yes (2) Diverticulitis large intestine Is this a current diagnosis for this admission?: Yes (3) Diabetes mellitus type 2 in obese Is this a current diagnosis for this admission?: Yes (4) Chronic CHF (congestive heart failure) Is this a current diagnosis for this admission?: Yes (5) Hypertension Is this a current diagnosis for this admission?: Yes (6) Hyperlipidemia Is this a current diagnosis for this admission?: Yes (7) Morbid obesity with BMI of 45.0-49.9, adult Is this a current diagnosis for this admission?: Yes - Additional Information Resuscitation Status: Full Code Prescriptions: Ciprofloxacin HCl [Cipro 500 mg Tablet] 250 mg PO Q12 #14 tablet Metronidazole [Flagyl 500 mg Tablet] 500 mg PO Q8 #21 tablet Home Medications: Alprazolam [Xanax] 0.5 mg PO DAILYP PRN 06/26/18 Aspirin [Lo-Dose Aspirin EC] 81 mg PO DAILY 06/26/18 Gabapentin 600 mg PO TID 06/26/18 Insulin Degludec [Tresiba Flextouch U-100] 50 unit SQ BID 06/26/18 Liraglutide [Victoza 2-Thong] 18 units SQ DAILY 06/26/18 Metoprolol Tartrate [Lopressor 100 mg Tablet] 100 mg PO DAILY 06/26/18 Nitroglycerin 0.3 mg SL PRN PRN 06/26/18 Aripiprazole [Abilify 5 mg Tablet] 5 mg PO DAILY 08/22/18 Cyclobenzaprine HCl [Flexeril 10 mg Tablet] 10 mg PO QHS 08/22/18 Dexlansoprazole [Dexilant 60 mg Capsule] 60 mg PO DAILY 08/22/18 Diclofenac Sodium [Voltaren] 4 gm TP TID 08/22/18 Docusate Sodium [Colace 100 mg Capsule] 200 mg PO DAILY 08/22/18 Ferrous Sulfate [Iron] 650 mg PO DAILY 08/22/18 Fluoxetine HCl [Prozac 20 mg Capsule] 20 mg PO TID 08/22/18 Furosemide [Lasix 20 mg Tablet] 20 mg PO QAM 08/22/18 Hydralazine HCl [Apresoline 25 mg Tablet] 25 mg PO TID 08/22/18 Icosapent Ethyl [Vascepa] 1 gm PO BID 08/22/18 Insulin Aspart [Novolog Insulin (Aspart) 100 unit/mL] 0 unit SUBCUT .SLD SCALE 08/22/18 Isosorbide Mononitrate [Imdur 30 mg Tablet.er] 30 mg PO DAILY 08/22/18 Lidocaine [Lidoderm 5% (700 mg) Transdermal Patch] 1 patch TP DAILY 08/22/18 Oxycodone HCl/Acetaminophen [Percocet 7.5-325 mg Tablet] 1 tab PO QIDP PRN 08/22/18 Tizanidine HCl [Zanaflex] 2 mg PO PRN PRN 08/22/18 Trazodone HCl [Desyrel] 100 mg PO QHS 08/22/18 Ciprofloxacin HCl [Cipro 500 mg Tablet] 250 mg PO Q12 #14 tablet 08/25/18 Metronidazole [Flagyl 500 mg Tablet] 500 mg PO Q8 #21 tablet 08/25/18 History of Present Illness Patient complains of: Nausea, vomiting and left lower abdominal pain History of Present Illness: JESU ORR is a 57 year old female known to my practice who presented to the ED with 4 days history of nausea, vomiting and left lower abdominal pain. Patient reported episode of blood in her stool 2 days prior to her presentation. She claimed associated episodes of fever and chills. There was associated poor appetite and oral intake due to elicited and worsening abdominal pain with food. Her initial evaluation in the ED was remarkable for low grade leukocytosis and concern regarding persistent nausea and intolerant of oral intake despite administration f anti emetic. Her radiographic examination with CT abdomen and pelvis without contrast was unrevealing but her clinical examination and presenting symptoms are suggestive of diverticulitis. Her morbidities include C ongestive Heart Failure, Coronary Artery Disease, Old myocardial infarction, Hypertension, Cerebrovascular Accident without residual deficit, - Diabetes Mellitus Type 2, Renal (Kidney) Cancer - s/p right nephrectomy September,, GERD, Hiatal and right sided abdominal wall Hernias, Gouty Arthritis, and Depression. She was advised hospitalization for further evaluation and management. Hospital Course Hospital Course: She was admitted with concern for acute diverticulitis. she was managed with IV fluid support, pain medication, antiemetic, Ciprofloxacin and Metronidazole. She was started on full liquid diet and eventually transition to regular diet due to her nausea and vomiting. Her abdominal pain, nausea and vomiting did resolved. She has been tolerant of regular diet, oral Ciprofloxacin and Metronidazole therapy. Her hyperglycemia remain a concern. she will be discharged home on oral antibiotic therapy and resume her preadmission medications. she will follow up in the office as instructed upon discharge. Physical Exam Vital Signs: Temp Pulse Resp BP Pulse Ox 98.5 F 64 17 136/77 H 95 08/25/18 11:51 08/25/18 11:51 08/25/18 11:51 08/25/18 11:51 08/25/18 11:51 Intake & Output 08/24/18 08/25/18 08/26/18 06:59 06:59 06:59 Intake Total 2839 1373 500 Output Total 25 Balance 2814 1373 500 Weight 132.9 kg 132.9 kg Physical Exam: General appearance: PRESENT: no acute distress, morbidly obese Head exam: PRESENT: atraumatic, normocephalic Ear exam: PRESENT: normal external ear exam Mouth exam: PRESENT: moist Respiratory exam: PRESENT: clear to auscultation tarsha Cardiovascular exam: PRESENT: RRR. ABSENT: diastolic murmur, rubs, systolic murmur Vascular exam: ABSENT: pallor GI/Abdominal exam: PRESENT: normal bowel sounds, soft ABSENT: tenderness, distended, guarding, mass, organomegaly, rebound Extremities exam: ABSENT: pedal edema Neurological exam: PRESENT: alert, awake, oriented to person, oriented to place, oriented to time, oriented to situation, CN II-XII grossly intact. ABSENT: motor sensory deficit Psychiatric exam: PRESENT: appropriate affect, normal mood. ABSENT: homicidal ideation, suicidal ideation Skin exam: PRESENT: dry, intact, warm. ABSENT: cyanosis, rash Eye exam: PRESENT: conjunctiva pink, EOMI, PERRLA. ABSENT: scleral icterus Vascular exam: PRESENT: normal capillary refill. ABSENT: pallor Results Laboratory Results: 08/23/18 08:15 08/23/18 08:15 Impressions: KUB X-Ray 08/22/18 12:39 IMPRESSION: NO RADIOGRAPHIC EVIDENCE FOR ACUTE ABDOMINAL DISEASE. Abdomen/Pelvis CT 08/22/18 14:09 IMPRESSION: No acute findings. Large right lower quadrant lateral hernia. Prior right nephrectomy. Qualifiers - * PATIENT BEING DISCHARGED WITH ANY OF THE FOLLOWING DIAGNOSIS: No Plan Discharge Plan: Discharge home today with follow up in the office as instructed upon discharge. Time Spent: Less than 30 Minutes
[2018-08-25 16:02] VITALS: BP 139/74
== END 2018-08-25 17:12 | disposition home or self-care (01) | DRG 392 ==
LOC: ER 12:06 → EH 17:49 → 4N 18:56
PROVIDERS: ADMIT Internal Medicine Geriatric Medicine; ATTEND Internal Medicine Geriatric Medicine
DX: K57.32 Diverticulitis of large intestine without perforation or abscess without bleeding (principal); I13.0 Hypertensive heart and chronic kidney disease with heart failure and stage 1 through stage 4 chronic kidney disease, or unspecified chronic kidney disease; I50.22 Chronic systolic (congestive) heart failure; Z68.42 Body mass index [BMI] 45.0-49.9, adult; I25.10 Atherosclerotic heart disease of native coronary artery without angina pectoris; E11.22 Type 2 diabetes mellitus with diabetic chronic kidney disease; N18.9 Chronic kidney disease, unspecified; K21.9 Gastro-esophageal reflux disease without esophagitis; M10.9 Gout, unspecified; E66.01 Morbid (severe) obesity due to excess calories; I25.2 Old myocardial infarction; Z85.53 Personal history of malignant neoplasm of renal pelvis; Z90.5 Acquired absence of kidney; Z95.5 Presence of coronary angioplasty implant and graft; Z86.73 Personal history of transient ischemic attack (TIA), and cerebral infarction without residual deficits; Z79.82 Long term (current) use of aspirin; Z79.4 Long term (current) use of insulin; Z79.899 Other long term (current) drug therapy
CPT/HCPCS: 36415; 74018; 74176; 80053; 81001; 82962; 83690; 85025; 87040; 87804; 94660; 96361; 96365; 96375; 96376; 99284; J0744; J1200; J1644; J1815; J2270; J2405; J2765; J3010; J7030; J7120

== ENCOUNTER 2018-09-06 08:18 | Day surgery (SDC) | payer MEDICARE, MEDICAID ==
[~2018-09-06 08:18] MED LIST changes: +CHONDR SU A NA/HYALUR INTRAOC KIT (SURGICARE) ONE; -DIPHENHYDRAMINE HCL 50 MG/ML VIAL ONE; -EPINEPHRINE INJ 1 MG/10 ML DISP.SYRIN ONE; +EPINEPHRINE INJ/PF 1 MG/1 ML AMPULE ONE; -FENTANYL CITRATE INJ/PF 100 MCG/2 ML AMPUL ONE; -FLUMAZENIL INJ 0.5 MG/5 ML VIAL ONE; -GLUCAGON,HUMAN RECOMB 1 MG INJ ONE; +KETOROLAC TROMETHAMINE 0.45% 4 DROP/0.4 ML DROPERETTE OS PRN; +LIDOCAINE 1% INJ-PF (10 MG/ML) 30 ML SDV ONE; -MIDAZOLAM 2 MG/2 ML INJ ONE; -NALOXONE HCL INJ/PF 0.4 MG/1 ML SDV ONE; -ONDANSETRON HCL INJ/PF 4 MG/2 ML SDV ONE
[2018-09-06] MEDS: CYCLOPENTOLATE 0.2%/PHENYLEPHRINE 1% OPH SOLN 2 ML OS PRN ×3 (09:29→09:49)
[2018-09-06] MEDS: TETRACAINE HCL 0.5% OPH SOLN 0.6 ML DROPERETTE OS PRN ×3 (09:29→10:01)
[2018-09-06] MEDS: BESIFLOXACIN HCL 0.6% OPH SUSP 5 ML BOTTLE OS PRN ×4 (09:29→10:17)
[2018-09-06] MEDS: TROPICAMIDE 1% OPH SOLN 3 ML OS PRN ×3 (09:29→09:49)
[2018-09-06] MEDS ORDERED: MIDAZOLAM 2 MG/2 ML INJ ONE (09:45)
[2018-09-06] MEDS ORDERED: FENTANYL CITRATE INJ/PF 100 MCG/2 ML AMPUL ONE (09:45)
[2018-09-06] MEDS: TOBRAMYCIN SULFATE/DEXAMETH OPH OINTMENT 3.5 GM ONE ×2 (10:11→10:17)
== END 2018-09-06 10:55 | disposition home or self-care (01) ==
LOC: SC 08:18
PROVIDERS: ATTEND Ophthalmology
DX: H25.12 Age-related nuclear cataract, left eye (principal); I13.10 Hypertensive heart and chronic kidney disease without heart failure, with stage 1 through stage 4 chronic kidney disease, or unspecified chronic kidney disease; E11.22 Type 2 diabetes mellitus with diabetic chronic kidney disease; N18.4 Chronic kidney disease, stage 4 (severe); E78.00 Pure hypercholesterolemia, unspecified; I25.2 Old myocardial infarction; D64.9 Anemia, unspecified; G47.30 Sleep apnea, unspecified; Z86.73 Personal history of transient ischemic attack (TIA), and cerebral infarction without residual deficits; Z79.82 Long term (current) use of aspirin; Z79.899 Other long term (current) drug therapy; Z88.0 Allergy status to penicillin; Z79.4 Long term (current) use of insulin; E66.9 Obesity, unspecified; Z68.42 Body mass index [BMI] 45.0-49.9, adult; Z85.528 Personal history of other malignant neoplasm of kidney; Z90.5 Acquired absence of kidney
CPT/HCPCS: 82962; 66984; V2632; J2250; J3490 ×3; A9270; J0171; J3010

== ENCOUNTER → 2018-09-08 | Outpatient (CLI) | payer MEDICARE, MEDICAID ==
[2018-09-08 15:42] LABS: HEMATOCRIT 34.7 % (36.0-47.0); HEMOGLOBIN 11.6 g/dL (12.0-15.5); MEAN CORPUSCULAR HEMOGLOBIN 27.8 pg (27.0-33.4); MEAN CORPUSCULAR HGB CONC 33.4 g/dL (32.0-36.0); MEAN CORPUSCULAR VOLUME 83 fl (80-97); PLATELET COUNT 276 10^3/uL (150-450); RED BLOOD COUNT 4.18 10^6/uL (3.72-5.28); WHITE BLOOD COUNT 9.9 10^3/uL (4.0-10.5)
[2018-09-08 16:00] LABS: ANION GAP 9 (5-19); BLOOD UREA NITROGEN 19 mg/dL (7-20); CALCIUM 9.4 mg/dL (8.4-10.2); CARBON DIOXIDE 36 mmol/L (22-30); CHLORIDE 92 mmol/L (98-107); GLUCOSE 185 mg/dL (75-110); POTASSIUM 4.5 mmol/L (3.6-5.0); SODIUM 137.4 mmol/L (137-145)
== END ==
LOC: OD 15:05
PROVIDERS: ATTEND Internal Medicine Nephrology
DX: I12.9 Hypertensive chronic kidney disease with stage 1 through stage 4 chronic kidney disease, or unspecified chronic kidney disease (principal); N18.3 Chronic kidney disease, stage 3 (moderate); E11.9 Type 2 diabetes mellitus without complications; E87.5 Hyperkalemia; D63.1 Anemia in chronic kidney disease
CPT/HCPCS: 36415; 80048; 85027

== ENCOUNTER → 2018-10-17 | Outpatient (CLI) | payer MEDICARE, MEDICAID ==
--- NOTE | 2018-10-17 14:07 | WOMENS IMAGING REPORT ---
EXAM DESCRIPTION: 3D SCREENING MAMMO BILAT COMPLETED DATE/TIME: 10/17/2018 9:33 am REASON FOR STUDY: Z12.31 ENCOUNTER FOR SCREENING MAMMOGRAM FOR MALIGNANT NEOPLASM OF BREAST Z12.31 ENCNTR SCREEN MAMMOGRAM FOR MALIGNANT NEOPLASM OF JOSHUA COMPARISON: 2016 TECHNIQUE: Standard craniocaudal and mediolateral oblique views of each breast recorded using digita l acquisition and breast tomosynthesis. LIMITATIONS: None. FINDINGS: No masses, calcifications or architectural distortion. No areas of suspicion. Read with the assistance of CAD. .[facility] - R2 Cenova Version 1.3 .[facility] - R2 Cenova Version 2.1 .[facility] - R2 Cenova Version 2.4 .[facility] - R2 Cenova Version 2.4 .[facility] - R2 Book Sorter Version 9.2 IMPRESSION: NORMAL MAMMOGRAM. BIRADS 1. BREAST DENSITY: a. The breasts are almost entirely fatty. BIRAD: 1 NEGATIVE RECOMMENDATION: ROUTINE SCREENING COMMENT: The patient has been notified of the results by letter per MQSA requirements. Additional no tification policies are in place for contacting patient with suspicious or incomplete findings. Quality ID #225: The [employer] recommends an annual screening mammogram for women aged 40 years or over. This facility utilizes a reminder system to ensure that all patients receive reminder letters, and/or direct phone calls for appointments. This includes reminders for routine scr eening mammograms, diagnostic mammograms, or other Breast Imaging Interventions when appropriate. Th is patient will be placed in the appropriate reminder system. The [employer] (ACR) has developed recommendations for screening MRI of the breast s in certain patient populations, to be used in conjunction with mammography. Breast MRI surveillanc e may be appropriate for women with more than 20% lifetime risk of developing breast cancer as deter mined by genetic testing, significant family history of the disease, or history of mantle radiation f or Hodgkins Disease. ACR Practice Guidelines 2008. DBT Technology DBT is a type of tomographic mammography. With conventional mammography, overlapping breast tissue ma y make lesions difficult to detect, even with good compression. DBT uses an x-ray tube that rotates a round the breast, taking images at different angles. These images are then combined to create thin sl ices of the breast that the radiologist can view as a 3D reconstruction. The [employer] unit can perform full-field digital mammograms (2D imaging); or DBT (3D imaging); or both, in a combination mode that quickly performs both the mammogram and the tomosynthesis scan while the breast is still compressed. PQRS 6045F: Fluoroscopic imaging is not utilized for breast tomosynthesis. TECHNICAL DOCUMENTATION: FINDING NUMBER: (1) ASSESSMENT: (1) JOB ID: [id number] [employer]- All Rights Reserved Reading location - IP/workstation name: [email or web address]-
== END ==
LOC: WI 08:45
PROVIDERS: ATTEND Internal Medicine Geriatric Medicine
DX: Z12.31 Encounter for screening mammogram for malignant neoplasm of breast (principal)
CPT/HCPCS: 77063; 77067

== ENCOUNTER 2018-12-14 11:47 | Day surgery (SDC) | payer MEDICARE, MEDICAID ==
[~2018-12-14 11:47] MED LIST changes: -CHONDR SU A NA/HYALUR INTRAOC KIT (SURGICARE) ONE; -EPINEPHRINE INJ/PF 1 MG/1 ML AMPULE ONE; -KETOROLAC TROMETHAMINE 0.45% 4 DROP/0.4 ML DROPERETTE OS PRN; -LIDOCAINE 1% INJ-PF (10 MG/ML) 30 ML SDV ONE; +ONABOTULINUMTOXINA INJ/PF 100 UNIT SDV IM ONE
[2018-12-14] MEDS ORDERED: DIPHENHYDRAMINE HCL 50 MG/ML VIAL ONE (12:04)
[2018-12-14] MEDS ORDERED: ONDANSETRON HCL INJ/PF 4 MG/2 ML SDV ONE (12:04)
[2018-12-14] MEDS ORDERED: GLUCAGON,HUMAN RECOMB 1 MG INJ ONE (12:05)
[2018-12-14] MEDS ORDERED: NALOXONE HCL INJ/PF 0.4 MG/1 ML SDV ONE (12:05)
[2018-12-14] MEDS ORDERED: FLUMAZENIL INJ 0.5 MG/5 ML VIAL ONE (12:05)
[2018-12-14] MEDS ORDERED: EPINEPHRINE INJ 1 MG/10 ML DISP.SYRIN ONE (12:05)
[2018-12-14] MEDS: MIDAZOLAM 2 MG/2 ML INJ ONE ×4 (12:47→12:52)
[2018-12-14] MEDS: FENTANYL CITRATE INJ/PF 100 MCG/2 ML AMPUL ONE ×2 (12:49→12:50)
--- NOTE | 2018-12-14 13:18 | Operative Report ---
Operative Report DATE OF SURGERY: 12/14/18 Operative Report: The risks benefits and alternatives of the procedure explained to the patient in detail and informed consent is obtained.A GIF Olympus video scope was inserted into the patient's mouth and hypopharynx, the esophagus is identified intubated and insufflated, the scope was then advanced through the esophagus stomach and duodenum, retroflexion maneuver is done, the esophagus stomach and first and second portions of the duodenum examined. PREOPERATIVE DIAGNOSIS: Nausea vomiting, gastroparesis POSTOPERATIVE DIAGNOSIS: Gastritis status post biopsy. Status post Botox injection at the gastric outlet 100 units per 5 mL; 20 units/mL injection around the gastric outlet OPERATION: EGD with submucosal injection SURGEON: SHENG PIMENTEL ANESTHESIA: Moderate Sedation - 3 mg of Versed, 50 mcg of fentanyl. Conscious sedation monitoring time 30 minutes. TISSUE REMOVED OR ALTERED: As noted above. COMPLICATIONS: None. ESTIMATED BLOOD LOSS: None. INTRAOPERATIVE FINDINGS: As noted above. PROCEDURE: Patient tolerated the procedure well. No immediate postprocedure complications are noted. Patient discharged in good condition. Discharge date 12/14/2018. Discharge diet: Regular. Discharge activity: Regular. 2 to 3-week follow-up to discuss findings. Patient is instructed to call the office or proceed to the emergency room should there be any further problems or questions. Wait on the pathology.
[2018-12-14 14:04] VITALS: BP 109/62
== END 2018-12-14 14:00 | disposition home or self-care (01) ==
LOC: END 11:47
PROVIDERS: ATTEND Internal Medicine Gastroenterology
DX: K31.84 Gastroparesis (principal); R11.2 Nausea with vomiting, unspecified; Z87.891 Personal history of nicotine dependence; Z79.899 Other long term (current) drug therapy; Z79.82 Long term (current) use of aspirin; Z79.4 Long term (current) use of insulin
CPT/HCPCS: 43236; 43239; 82962; 88305 ×2; 88312 ×2; J2250; J3010; J0585; J0171; J1200; J1610; J2310; J2405; J3490

== ENCOUNTER → 2019-01-12 | Outpatient (CLI) | payer MEDICARE, MEDICAID ==
[2019-01-12 15:46] LABS: HEMATOCRIT 34.9 % (36.0-47.0); HEMOGLOBIN 11.4 g/dL (12.0-15.5); MEAN CORPUSCULAR HEMOGLOBIN 27.8 pg (27.0-33.4); MEAN CORPUSCULAR HGB CONC 32.7 g/dL (32.0-36.0); MEAN CORPUSCULAR VOLUME 85 fl (80-97); PLATELET COUNT 235 10^3/uL (150-450); RED CELL DISTRIBUTION WIDTH 15.1 % (11.5-14.0)
[2019-01-12 16:04] LABS: APPEARANCE,URINE SLIGHTLY-CLOUDY; BILIRUBIN,URINE NEGATIVE (NEGATIVE); COLOR,URINE YELLOW; GLUCOSE, URINE >=500 mg/dL (NEGATIVE); KETONES,URINE NEGATIVE (NEGATIVE); LEUKOCYTE ESTERASE,URINE NEGATIVE (NEGATIVE); NITRITE,URINE NEGATIVE (NEGATIVE); PROTEIN,URINE 30 mg/dL (NEGATIVE); URINE SPECIFIC GRAVITY 1.011; UROBILINOGEN,URINE NEGATIVE mg/dL (<2.0)
[2019-01-12 16:06] LABS: ANION GAP 10 (5-19); BLOOD UREA NITROGEN 24 mg/dL (7-20); CALCIUM 9.2 mg/dL (8.4-10.2); CARBON DIOXIDE 30 mmol/L (22-30); CHLORIDE 98 mmol/L (98-107); GLUCOSE 256 mg/dL (75-110); PHOSPHORUS 4.1 mg/dL (2.5-4.5); POTASSIUM 4.9 mmol/L (3.6-5.0); SODIUM 138.3 mmol/L (137-145)
== END ==
LOC: LAB 15:14
PROVIDERS: ATTEND Physician Assistant Medical
DX: I13.0 Hypertensive heart and chronic kidney disease with heart failure and stage 1 through stage 4 chronic kidney disease, or unspecified chronic kidney disease (principal); I50.9 Heart failure, unspecified; N18.4 Chronic kidney disease, stage 4 (severe); E11.22 Type 2 diabetes mellitus with diabetic chronic kidney disease; D64.9 Anemia, unspecified
CPT/HCPCS: 36415; 80048; 81001; 83970; 84100; 85027

== ENCOUNTER 2019-03-29 12:18 | Day surgery (SDC) | payer MEDICARE, MEDICAID ==
[2019-03-29] MEDS ORDERED: EPINEPHRINE INJ 1 MG/10 ML DISP.SYRIN ONE (12:19)
[2019-03-29] MEDS ORDERED: FENTANYL CITRATE INJ/PF 100 MCG/2 ML AMPUL ONE (12:19)
[2019-03-29] MEDS ORDERED: FLUMAZENIL INJ 0.5 MG/5 ML VIAL ONE (12:19)
[2019-03-29] MEDS ORDERED: MIDAZOLAM 2 MG/2 ML INJ ONE (12:19)
[2019-03-29] MEDS ORDERED: ONDANSETRON HCL INJ/PF 4 MG/2 ML SDV ONE (12:19)
[2019-03-29] MEDS ORDERED: NALOXONE HCL INJ/PF 0.4 MG/1 ML SDV ONE (12:19)
[2019-03-29] MEDS ORDERED: DIPHENHYDRAMINE HCL 50 MG/ML VIAL ONE (12:19)
[2019-03-29] MEDS ORDERED: GLUCAGON,HUMAN RECOMB 1 MG INJ ONE (12:20)
[2019-03-29] MEDS ORDERED: ONABOTULINUMTOXINA INJ/PF 100 UNIT SDV INFIL ONE (12:45)
--- NOTE | 2019-03-29 13:08 | Operative Report ---
Operative Report DATE OF SURGERY: 03/29/19 Operative Report: The risks benefits and alternatives of the procedure explained to the patient in detail and informed consent is obtained.A GIF Olympus video scope was inserted into the patient's mouth and hypopharynx, the esophagus is identified intubated and insufflated ,the scope was then advanced through the esophagus stomach and duodenum ,retroflexion maneuver is done, the esophagus stomach and first and second portions of the duodenum examined. PREOPERATIVE DIAGNOSIS: Abdominal pain rule out peptic ulcer disease POSTOPERATIVE DIAGNOSIS: Gastritis status post biopsy. Patient had Botox injection at the gastric outlet 100 units of Botox and 4 mL's for a 25 unit/mL injection OPERATION: EGD with submucosal injection. EGD with biopsy SURGEON: SHENG PIMENTEL ANESTHESIA: Moderate Sedation - 2 mg of Versed. Conscious sedation monitoring time 30 minutes. TISSUE REMOVED OR ALTERED: As noted above. COMPLICATIONS: None. ESTIMATED BLOOD LOSS: None. INTRAOPERATIVE FINDINGS: As noted above. PROCEDURE: Patient tolerated the procedure well. No immediate postprocedure complications are noted. Patient is discharged in good condition. Discharge date 03/29/2019. Discharge diet: Regular. Discharge activity: Regular. 2 to 3-week follow-up to discuss findings. Patient is instructed to call the office or proceed to the emergency room should there be any further proximal questions. Wait on the pathology.
[2019-03-29 14:46] VITALS: BP 120/65
== END 2019-03-29 14:45 | disposition home or self-care (01) ==
LOC: END 12:18
PROVIDERS: ATTEND Internal Medicine Gastroenterology
DX: K31.84 Gastroparesis (principal); K29.50 Unspecified chronic gastritis without bleeding; Z87.891 Personal history of nicotine dependence; Z79.899 Other long term (current) drug therapy; Z79.4 Long term (current) use of insulin
CPT/HCPCS: 43236; 43239; 82962; 88305 ×2; J2250; J3010; J0585; J0171; J1200; J1610; J2310; J2405; J3490

== ENCOUNTER 2019-04-10 14:23 | Emergency (ER) | payer MEDICARE, MEDICAID ==
[2019-04-10] MEDS ORDERED: ACETAMINOPHEN 325 MG TABLET PO ONE (14:46)
--- NOTE | 2019-04-10 14:51 | ER Document Report ---
HPI - HPI Patient complains to provider of: left foot pain Time Seen by Provider: 04/10/19 14:38 Onset: Last week Onset/Duration: Persistent Quality of pain: Achy Severity: Severe Pain Level: 4 Context: This 58-year-old female with history of diabetes and chronic kidney disease presents to the emergency department with complaints of left foot pain. Reports pain started on . She does not remember hurting her foot. She went to see her primary care provider on Tuesday, Dr. Beltran. He did x-rays at his office. He diagnosed her with a possible fracture. She has been wearing a boot that she had a home by herself. She reports continued swelling and pain she contacted her insurance company and they told her to come to the emergency department. She reports she took Tylenol this morning at 08 100 for the pain. She does have oxycodone but declined taking that. Associated Symptoms: None Exacerbated by: Denies Relieved by: Denies Similar symptoms previously: Yes Recently seen / treated by doctor: Yes - REPRODUCTIVE Reproductive: DENIES: : Past Medical History - General Information source: Patient - Social History Smoking Status: Unknown if Ever Smoked Cigarette use (# per day): No Frequency of alcohol use: None Drug Abuse: None Family History: None, Hypertension - Past Medical History Cardiac Medical History: Reports: Hx Congestive Heart Failure, Hx Coronary Artery Disease, Hx Heart Attack - x2, STENTS, Hx Hypertension Denies: Hx DVT Pulmonary Medical History: Reports: Hx Pneumonia Denies: Hx Asthma, Hx Bronchitis, Hx COPD Neurological Medical History: Reports: Hx Cerebrovascular Accident - NO RESIDUAL. Denies: Hx Seizures Endocrine Medical History: Reports: Hx Diabetes Mellitus Type 1, Hx Diabetes Mellitus Type 2 Renal/ Medical History: Reports: Hx End Stage Renal Disease. Denies: Hx Peritoneal Dialysis Malignancy Medical History: Reports: Hx Renal (Kidney) Cancer - s/p right nephrectomy September, GI Medical History: Reports: Hx Gastroesophageal Reflux Disease, Hx Hiatal Hernia. Denies: Hx Crohn's Disease, Hx Hepatitis, Hx Ulcer, Hx Ulcerative Colitis Musculoskeletal Medical History: Reports Hx Arthritis - gout Skin Medical History: Denies Hx Psoriasis Psychiatric Medical History: Reports: Hx Depression Traumatic Medical History: Denies: Hx Traumatic Brain Injury Infectious Medical History: Denies: Hx C-Diff, Hx Hepatitis Past Surgical History: Reports: Hx Cardiac Catheterization - stent placement, Hx Cardiac Surgery - stent placement, Hx Cholecystectomy, Hx Coronary Stent - 2013, Hx Kidney (Renal Surgery) - R removal, Hx Orthopedic Surgery - left hand, left great toe amputation, Other - right nephrectomy for ca. Denies: Hx Hysterectomy, Hx Mastectomy, Hx Open Heart Surgery, Hx Pacemaker - Immunizations Hx Diphtheria, Pertussis, Tetanus Vaccination: Yes Hx Pneumococcal Vaccination: 07/11/13 Vertical Provider Document - CONSTITUTIONAL Agree With Documented VS: Yes Exam Limitations: No Limitations General Appearance: WD/WN, No Apparent Distress - INFECTION CONTROL TRAVEL OUTSIDE OF THE [place] IN LAST 30 DAYS: No - HEENT HEENT: Atraumatic, Normocephalic - NECK Neck: Supple - RESPIRATORY Respiratory: No Respiratory Distress - CARDIOVASCULAR Cardiovascular: Regular Rate - MUSCULOSKELETAL/EXTREMETIES Musculoskeletal/Extremeties: MAEW, FROM, Tender - Left dorsal starch mangle tender to palpate slight swelling good cap refill no obvious deformity no erythema no warmth - NEURO Level of Consciousness: Awake, Alert, Appropriate Motor/Sensory: No Motor Deficit - DERM Integumentary: Warm, Dry Adult Front & Back Diagram: 1 - Patient reports of tenderness to palpate Course - Re-evaluation Re-evalutation: 04/10/19 14:49 58-year-old female presents with left dorsal foot pain. Denies trauma. Reports her primary care provider reported she could possibly have a fracture. She is been wearing a boot since that time that she had. Reports increased pain and swelling. Patient was instructed on avulsion fracture which could be new or old. Patient does have a postop shoe on. She was instructed to continue to wear follow-up with her primary care provider. Patient clarified her doctor is Dr. Popeye Beltran. Foot X-Ray 04/10/19 14:46 IMPRESSION: 1. SMALL OSSEOUS DENSITY ADJACENT TO THE BASE OF THE PROXIMAL PHALANX OF THE 2ND TOE. PROBABLE AVULSION INJURY WHICH COULD BE RECENT OR OLD. 2. CHRONIC CHANGES. PREVIOUS AMPUTATION OF THE DISTAL 1ST TOE. HEEL SPUR. - Vital Signs Vital signs: Temp Pulse Resp BP Pulse Ox 97.9 F 63 18 118/62 94 04/10/19 14:33 04/10/19 14:33 04/10/19 14:33 04/10/19 14:33 04/10/19 14:33 - Diagnostic Test Radiology reviewed: Image reviewed, Reports reviewed Discharge - Discharge Clinical Impression: Left foot pain, Avulsion fracture Condition: Stable Disposition: HOME, SELF-CARE Instructions: Avulsion Injury (OM) Additional Instructions: *You have been evaluated for left foot pain, avulsion fracture *avulsion fracture ADJACENT TO THE BASE OF THE PROXIMAL PHALANX OF THE 2ND TOE. *Maintain your boot *Rest/Ice/Elevate your foot *Follow up with Dr. Beltran within 1 week for referral to orthopedics as ind icated *Take Tylenol or Motrin as indicated for pain *Return to ED for worsening condition, changes, needs Referrals: DAMIAN THOMPSON PA-C [Primary Care Provider] - Follow up in 1 week
--- NOTE | 2019-04-10 15:25 | RADIOLOGY REPORT (SQ) ---
EXAM DESCRIPTION: FOOT LEFT COMPLETE COMPLETED DATE/TIME: 04/10/2019 3:05 pm REASON FOR STUDY: pain, ?fx COMPARISON: None. NUMBER OF VIEWS: Three views. TECHNIQUE: AP, lateral and oblique without weight bearing radiographic images acquired of the left f oot. LIMITATIONS: None. FINDINGS: MINERALIZATION: Normal. BONES: Small osseous density adjacent to the base of the proximal phalanx of the 2nd toe, seen on one view only. No other acute fracture or dislocation. Previous amputation of the tuft of the 1st toe. Prominent plantar calcaneal spur. No worrisome bone lesions. No significant osteophytes. JOINTS: Small osteophytes in the midfoot. No erosions. No riki-articular osteopenia. No chondrocal cinosis. SOFT TISSUES: No swelling. No calcifications. OTHER: No other significant finding. IMPRESSION: 1. SMALL OSSEOUS DENSITY ADJACENT TO THE BASE OF THE PROXIMAL PHALANX OF THE 2ND TOE. PROBABLE AVULS ION INJURY WHICH COULD BE RECENT OR OLD. 2. CHRONIC CHANGES. PREVIOUS AMPUTATION OF THE DISTAL 1ST TOE. HEEL SPUR. TECHNICAL DOCUMENTATION: JOB ID: [id number] [employer]- All Rights Reserved Reading location - IP/workstation name: [email or web address]
[2019-04-10 16:06] VITALS: BP 123/66
== END 2019-04-10 16:03 | disposition home or self-care (01) ==
LOC: ER 14:23
DX: M84.47 Pathological fracture, ankle, foot and toes (principal); M77.32 Calcaneal spur, left foot; M79.672 Pain in left foot; E11.9 Type 2 diabetes mellitus without complications; I25.10 Atherosclerotic heart disease of native coronary artery without angina pectoris; I10 Essential (primary) hypertension; I25.2 Old myocardial infarction; Z95.5 Presence of coronary angioplasty implant and graft; Z90.5 Acquired absence of kidney
CPT/HCPCS: 99283; 73630; A9270

== ENCOUNTER → 2019-04-12 | Outpatient (CLI) | payer MEDICARE, MEDICAID ==
[2019-04-12 15:02] LABS: HEMATOCRIT 36.5 % (36.0-47.0); HEMOGLOBIN 11.8 g/dL (12.0-15.5); MEAN CORPUSCULAR HEMOGLOBIN 27.4 pg (27.0-33.4); MEAN CORPUSCULAR HGB CONC 32.5 g/dL (32.0-36.0); MEAN CORPUSCULAR VOLUME 84 fl (80-97); PLATELET COUNT 264 10^3/uL (150-450); RED BLOOD COUNT 4.33 10^6/uL (3.72-5.28); RED CELL DISTRIBUTION WIDTH 14.2 % (11.5-14.0); WHITE BLOOD COUNT 12.6 10^3/uL (4.0-10.5)
[2019-04-12 15:08] LABS: APPEARANCE,URINE SLIGHTLY-CLOUDY; BILIRUBIN,URINE NEGATIVE (NEGATIVE); COLOR,URINE YELLOW; GLUCOSE, URINE NEGATIVE (NEGATIVE); KETONES,URINE NEGATIVE (NEGATIVE); LEUKOCYTE ESTERASE,URINE NEGATIVE (NEGATIVE); NITRITE,URINE NEGATIVE (NEGATIVE); PROTEIN,URINE NEGATIVE (NEGATIVE); URINE SPECIFIC GRAVITY 1.009; UROBILINOGEN,URINE NEGATIVE mg/dL (<2.0)
[2019-04-12 15:25] LABS: ANION GAP 12 (5-19); BLOOD UREA NITROGEN 31 mg/dL (7-20); CALCIUM 9.2 mg/dL (8.4-10.2); CARBON DIOXIDE 31 mmol/L (22-30); CHLORIDE 96 mmol/L (98-107); GLUCOSE 188 mg/dL (75-110); PHOSPHORUS 4.9 mg/dL (2.5-4.5); POTASSIUM 4.3 mmol/L (3.6-5.0)
== END ==
LOC: LAB 14:38
PROVIDERS: ATTEND Internal Medicine Nephrology
DX: I13.0 Hypertensive heart and chronic kidney disease with heart failure and stage 1 through stage 4 chronic kidney disease, or unspecified chronic kidney disease (principal); I50.9 Heart failure, unspecified; N18.3 Chronic kidney disease, stage 3 (moderate); E11.22 Type 2 diabetes mellitus with diabetic chronic kidney disease; E87.5 Hyperkalemia; D64.9 Anemia, unspecified
CPT/HCPCS: 36415; 80048; 81001; 83970; 84100; 85027

== ENCOUNTER 2019-05-06 14:42 | Inpatient (IN) | payer MEDICARE, MEDICAID ==
--- NOTE | 2019-05-06 14:58 | ER Document Report ---
ED Medical Screen (RME) - General Chief Complaint: Foot Pain Stated Complaint: FOOT SWELLING Time Seen by Provider: 05/06/19 14:51 Primary Care Provider: AMBAR LOPEZ MD [Primary Care Provider] - Follow up as needed Mode of Arrival: Ambulatory Information source: Patient Notes: Patient presents complaining of left foot swelling for the past 6 weeks. Patient states that the foot and lower leg have become red over the past 2 days. Patient was seen here recently and had an x-ray performed that patient states she may have had a broken bone. Patient reports fever off and on at home. hx: Hypertension, CHF, diabetes, chronic kidney disease, peripheral neuropathy I have greeted and performed a rapid initial assessment of this patient. A comprehensive ED assessment and evaluation of the patient, analysis of test results and completion of the medical decision making process will be conducted by additional ED providers. TRAVEL OUTSIDE OF THE [place] IN LAST 30 DAYS: No - Related Data Allergies/Adverse Reactions: sulfamethoxazole [From Bactrim] Allergy (Severe, Verified 05/06/19 14:51) rash trimethoprim [From Bactrim] Allergy (Severe, Verified 05/06/19 14:51) rash Penicillins Allergy (Unknown, Verified 05/06/19 14:51) Past Medical History - Past Medical History Cardiac Medical History: Reports: Hx Congestive Heart Failure, Hx Coronary Artery Disease, Hx Heart Attack - x2, STENTS, Hx Hypercholesterolemia, Hx H ypertension Denies: Hx DVT Pulmonary Medical History: Reports: Hx Pneumonia Denies: Hx Asthma, Hx Bronchitis, Hx COPD Neurological Medical History: Reports: Hx Cerebrovascular Accident - NO RESIDUAL. Denies: Hx Seizures Endocrine Medical History: Reports: Hx Diabetes Mellitus Type 1, Hx Diabetes Mellitus Type 2 Renal/ Medical History: Reports: Hx End Stage Renal Disease. Denies: Hx Peritoneal Dialysis Malignancy Medical History: Reports: Hx Renal (Kidney) Cancer - s/p right nephrectomy September, GI Medical History: Reports: Hx Gastroesophageal Reflux Disease, Hx Hiatal Hernia. Denies: Hx Crohn's Disease, Hx Hepatitis, Hx Ulcer, Hx Ulcerative Colitis Musculoskeltal Medical History: Reports Hx Arthritis - gout Skin Medical History: Denies Hx Psoriasis Psychiatric Medical History: Reports: Hx Depression Traumatic Medical History: Denies: Hx Traumatic Brain Injury Infectious Medical History: Denies: Hx C-Diff, Hx Hepatitis Past Surgical History: Reports: Hx Cardiac Catheterization - stent placement, Hx Cardiac Surgery - stent placement, Hx Cholecystectomy, Hx Coronary Stent - 2013, Hx Kidney (Renal Surgery) - R removal, Hx Orthopedic Surgery - left hand, left great toe amputation, Other - right nephrectomy for ca. Denies: Hx Hysterectomy, Hx Mastectomy, Hx Open Heart Surgery, Hx Pacemaker - Immunizations Hx Diphtheria, Pertussis, Tetanus Vaccination: Yes Physical Exam - Vital signs Vitals: Temp Pulse Resp BP Pulse Ox 98.1 F 74 16 151/63 H 94 05/06/19 14:48 05/06/19 14:48 05/06/19 14:48 05/06/19 14:48 05/06/19 14:48 - General General appearance: Alert Notes: 2-3+ edema to left foot with erythema extending from foot up to the left ankle. Course - Vital Signs Vital signs: Temp Pulse Resp BP Pulse Ox 98.1 F 74 16 151/63 H 94 05/06/19 14:48 05/06/19 14:48 05/06/19 14:48 05/06/19 14:48 05/06/19 14:48 Doctor's Discharge - Discharge Referrals: AMBAR LOPEZ MD [Primary Care Provider] - Follow up as needed
[2019-05-06] MEDS ORDERED: FENTANYL CITRATE INJ/PF 100 MCG/2 ML AMPUL IV ONE ×2 (15:29→17:04)
--- NOTE | 2019-05-06 15:29 | RADIOLOGY REPORT (SQ) ---
EXAM DESCRIPTION: FOOT LEFT COMPLETE COMPLETED DATE/TIME: 05/06/2019 3:18 pm REASON FOR STUDY: redness/swelling COMPARISON: 04/10/2019 NUMBER OF VIEWS: Three views. TECHNIQUE: AP, lateral and oblique radiographic images acquired of the left foot. LIMITATIONS: None. FINDINGS: MINERALIZATION: Normal. BONES: Marked tarsal metatarsal dislocation/ diffuse Lisfranc injury. Metatarsals displaced laterall y and dorsally with respect to the tarsal bones. JOINTS: No effusions. SOFT TISSUES: No soft tissue swelling. No foreign body. OTHER: No other significant finding. IMPRESSION: Diffuse midfoot dislocation at the tarsal metatarsal level. Diffuse Lisfranc injury. M etatarsals displaced laterally and superiorly with respect to the tarsal bones. TECHNICAL DOCUMENTATION: JOB ID: [id number] [employer]- All Rights Reserved Reading location - IP/workstation name: [email or web address]
[2019-05-06] MEDS ORDERED: ONDANSETRON HCL INJ/PF 4 MG/2 ML SDV IV ONE (15:30)
[2019-05-06] MEDS ORDERED: VANCOMYCIN HCL INJ 1000 MG VIAL IV ONE ×3 (15:31→18:00)
[2019-05-06 15:41] LABS: ABSOLUTE BASOPHILS # (AUTO) 0.1 10^3/uL (0.0-0.2); ABSOLUTE EOSINOPHILS # (AUTO) 0.6 10^3/uL (0.0-0.6); ABSOLUTE MONOCYTES (AUTO) 0.8 10^3/uL (0.1-1.4); ABSOLUTE NEUT (AUTO) 5.9 10^3/uL (1.7-8.2); BASOPHILS % (AUTO) 0.6 % (0-2); EOSINOPHILS % (AUTO) 6.1 % (0-6); HEMATOCRIT 33.7 % (36.0-47.0); HEMOGLOBIN 10.9 g/dL (12.0-15.5); MEAN CORPUSCULAR HEMOGLOBIN 27.7 pg (27.0-33.4); MEAN CORPUSCULAR HGB CONC 32.5 g/dL (32.0-36.0); MEAN CORPUSCULAR VOLUME 85 fl (80-97); MONOCYTES % (AUTO) 7.7 % (3-13); PLATELET COUNT 263 10^3/uL (150-450); RED BLOOD COUNT 3.95 10^6/uL (3.72-5.28); RED CELL DISTRIBUTION WIDTH 14.8 % (11.5-14.0); SEGMENTED NEUTROPHILS % (AUTO) 56.6 % (42-78); TOTAL CELLS COUNTED % (AUTO) 100 %; WHITE BLOOD COUNT 10.5 10^3/uL (4.0-10.5)
[2019-05-06 15:59] LABS: ALBUMIN 3.5 g/dL (3.5-5.0); ALKALINE PHOSPHATASE 73 U/L (38-126); ANION GAP 11 (5-19); ASPARTATE AMINO TRANSFERASE 27 U/L (14-36); BILIRUBIN,DIRECT 0.3 mg/dL (0.0-0.4); BILIRUBIN,TOTAL 0.3 mg/dL (0.2-1.3); BLOOD UREA NITROGEN 31 mg/dL (7-20); CALCIUM 8.6 mg/dL (8.4-10.2); CARBON DIOXIDE 30 mmol/L (22-30); CHLORIDE 95 mmol/L (98-107); POTASSIUM 4.4 mmol/L (3.6-5.0); TOTAL PROTEIN 6.8 g/dL (6.3-8.2)
[2019-05-06 16:11] LABS: GLUCOSE 437 mg/dL (75-110)
[2019-05-06] MEDS ORDERED: INSULIN REG, HUMAN 100 UNIT/ML 3 ML VIAL (PYX) SUBCUT ONE (16:16)
[2019-05-06 16:51] LABS: VENOUS BLOOD BASE EXCESS 7.2 mmol/L; VENOUS BLOOD PH 7.3 (7.30-7.42)
[2019-05-06 16:54] LABS: VENOUS BLOOD PCO2 74.4 mmHg (35-63)
[2019-05-06 17:03] LABS: APPEARANCE,URINE CLEAR; BILIRUBIN,URINE NEGATIVE (NEGATIVE); COLOR,URINE YELLOW; GLUCOSE, URINE >=500 mg/dL (NEGATIVE); KETONES,URINE NEGATIVE (NEGATIVE); LEUKOCYTE ESTERASE,URINE NEGATIVE (NEGATIVE); NITRITE,URINE NEGATIVE (NEGATIVE); PROTEIN,URINE NEGATIVE (NEGATIVE); UROBILINOGEN,URINE NEGATIVE mg/dL (<2.0)
[2019-05-06] MEDS ORDERED: RINGERS SOLUTION,LACTATED 500 ML IV ONE (17:04)
--- NOTE | 2019-05-06 17:51 | ER Document Report ---
ED Extremity Problem, Lower - General Chief Complaint: Foot Pain Stated Complaint: FOOT SWELLING Time Seen by Provider: 05/06/19 14:51 Primary Care Provider: AMBAR LOPEZ MD [Primary Care Provider] - Follow up as needed Mode of Arrival: Ambulatory Notes: Patient is a 58-year-old female history of congestive heart failure, type 2 diabetes, chronic kidney failure, hypertension presents to the emergency department with red swollen left lower extremity. Patient voices she has been dealing with foot pain for approximately 6 weeks. States she did present to this facility approximately a month ago for x-rays. States she had a questionable fracture at that time. States she was placed in a boot. States a few days ago she did follow-up with her primary care provider Dr. Lopez for continued pain in the left foot. States she was started on Keflex. Patient voices since seeing Dr. Lopez she has noticed that the left foot has become red, swollen and more painful. Patient is denying any trauma or injury that she knows of. 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 TRAVEL OUTSIDE OF THE [place] IN LAST 30 DAYS: No - Related Data Allergies/Adverse Reactions: sulfamethoxazole [From Bactrim] Allergy (Severe, Verified 05/06/19 14:51) rash trimethoprim [From Bactrim] Allergy (Severe, Verified 05/06/19 14:51) rash Penicillins Allergy (Unknown, Verified 05/06/19 14:51) Past Medical History - General Information source: Patient - Social History Smoking Status: Former Smoker Family History: None, Hypertension Patient has suicidal ideation: No Patient has homicidal ideation: No - Past Medical History Cardiac Medical History: Reports: Hx Congestive Heart Failure, Hx Coronary Artery Disease, Hx Heart Attack - x2, STENTS, Hx Hypercholesterolemia, Hx Hypertension Denies: Hx DVT Pulmonary Medical History: Reports: Hx Pneumonia Denies: Hx Asthma, Hx Bronchitis, Hx COPD Neurological Medical History: Reports: Hx Cerebrovascular Accident - NO RESIDUAL. Denies: Hx Seizures Endocrine Medical History: Reports: Hx Diabetes Mellitus Type 1, Hx Diabetes Mellitus Type 2 Renal/ Medical History: Reports: Hx End Stage Renal Disease. Denies: Hx Peritoneal Dialysis Malignancy Medical History: Reports: Hx Renal (Kidney) Cancer - s/p right neph rectomy September, GI Medical History: Reports: Hx Gastroesophageal Reflux Disease, Hx Hiatal Hernia. Denies: Hx Crohn's Disease, Hx Hepatitis, Hx Ulcer, Hx Ulcerative Colit is Musculoskeletal Medical History: Reports Hx Arthritis - gout Skin Medical History: Denies Hx Psoriasis Psychiatric Medical History: Reports: Hx Depression Traumatic Medical History: Denies: Hx Traumatic Brain Injury Infectious Medical History: Denies: Hx C-Diff, Hx Hepatitis Past Surgical History: Reports: Hx Cardiac Catheterization - stent placement, Hx Cardiac Surgery - stent placement, Hx Cholecystectomy, Hx Coronary Stent - 2013, Hx Kidney (Renal Surgery) - R removal, Hx Orthopedic Surgery - left hand, left great toe amputation, Other - right nephrectomy for ca. Denies: Hx Hysterectomy, Hx Mastectomy, Hx Open Heart Surgery, Hx Pacemaker - Immunizations Hx Diphtheria, Pertussis, Tetanus Vaccination: Yes Hx Pneumococcal Vaccination: 07/11/13 Review of Systems - Review of Systems Constitutional: denies: Fever EENT: No symptoms reported Cardiovascular: No symptoms reported Respiratory: No symptoms reported Gastrointestinal: No symptoms reported Genitourinary: No symptoms reported Female Genitourinary: No symptoms reported Musculoskeletal: See HPI Skin: See HPI Hematologic/Lymphatic: No symptoms reported Neurological/Psychological: No symptoms reported Physical Exam - Vital signs Vitals: Temp Pulse Resp BP Pulse Ox 98.1 F 74 16 151/63 H 94 05/06/19 14:48 05/06/19 14:48 05/06/19 14:48 05/06/19 14:48 05/06/19 14:48 - Notes Notes: GENERAL: Alert, interacts well. No acute distress. HEAD: Normocephalic, atraumatic. EYES: Pupils equal, round, and reactive to light. Extraocular movements intact. ENT: Oral mucosa moist, tongue midline. NECK: Full range of motion. Supple. Trachea midline. LUNGS: Clear to auscultation bilaterally, no wheezes, rales, or rhonchi. No respiratory distress. HEART: Regular rate and rhythm. No murmur ABDOMEN: Soft, non-tender. Non-distended. Bowel sounds present in all 4 quadrants. EXTREMITIES: Moves all 4 extremities spontaneously. normal radial and dorsalis pedis pulses bilaterally. Erythema and swelling noted entire left foot. Dry skin noted but no open sores noted. Slight swelling noted in left lower extremity mid calf. old Amputated left great toe noted old BACK: no cervical, thoracic, lumbar midline tenderness. No saddle anesthesia, normal distal neurovascular exam. NEUROLOGICAL: Alert and oriented x3. Normal speech. cranial nerves II through XII grossly intact. PSYCH: Normal affect, normal mood. SKIN: Warm, dry, normal turgor. Course - Re-evaluation Re-evalutation: 05/06/19 17:50 Initially started the patient on vancomycin for potential cellulitis. X-rays have resulted showing a Lisfranc fracture. Patient's white count is not elevated, based on physical exam findings we will continue vancomycin until admitting provider assesses the patient. Patient's labs show hyperglycemia with no change in patient's PH although her PCO2 is markedly elevated. I discussed this case with Dr. Beltran who will admit the patient to [facility]. - Vital Signs Vital signs: Temp Pulse Resp BP Pulse Ox 98.1 F 74 16 151/63 H 94 05/06/19 14:48 05/06/19 14:48 05/06/19 14:48 05/06/19 14:48 05/06/19 14:48 - Laboratory Result Diagrams: 05/06/19 15:28 05/06/19 15:28 Laboratory results interpreted by me: 05/06/19 05/06/19 05/06/19 15:28 15:28 15:28 Hgb 10.9 L Hct 33.7 L RDW 14.8 H Eos % (Auto) 6.1 H VBG pCO2 VBG HCO3 Sodium 136.1 L Chloride 95 L BUN 31 H Creatinine 2.26 H Est GFR ( Amer) 27 L Est GFR (MDRD) Non-Af 22 L Glucose 437 H* NT-Pro-B Natriuret Pep 492 H Urine Glucose (UA) 05/06/19 05/06/19 16:29 16:32 Hgb Hct RDW Eos % (Auto) VBG pCO2 74.4 H* VBG HCO3 36.0 H Sodium Chloride BUN Creatinine Est GFR ( Amer) Est GFR (MDRD) Non-Af Glucose NT-Pro-B Natriuret Pep Urine Glucose (UA) >=500 H Discharge - Discharge Clinical Impression: Hyperglycemia, Lisfranc fracture Condition: Fair Disposition: ADMITTED INPATIENT Admitting Provider: [facility] Admitted: [facility] Referrals: AMBAR LOPEZ MD [Primary Care Provider] - Follow up as needed
[2019-05-06] MEDS ORDERED: DEXTROSE 50%-WATER 25 GM/50 ML DISP.SYRIN IV PRN ×2 (18:48)
[2019-05-06] MEDS ORDERED: DEXTROSE 40% GEL 15 GM TUBE PO PRN ×2 (18:48)
[2019-05-06] MEDS ORDERED: GLUCAGON,HUMAN RECOMB 1 MG INJ IM PRN (18:48)
[2019-05-06] MEDS ORDERED: NORMAL SALINE 100 ML with INSULIN REGULAR, HUMAN 100 UNIT IV PRN ×2 (18:48)
[2019-05-06] MEDS ORDERED: VANCOMYCIN HCL 0 MG in DEXTROSE 5%-WATER 250 ML IV NR (19:00)
[2019-05-06 19:17] LABS: INTERNATIONAL RATION (INR) 1.04; PROTHROMBIN TIME 13.6 SEC (11.4-15.4)
[2019-05-06 19:18] LABS: PARTIAL THROMBOPLASTIN TIME 30.4 SEC (23.5-35.8)
[2019-05-06 19:29] LABS: PHOSPHORUS 4.4 mg/dL (2.5-4.5)
[2019-05-06] MEDS ORDERED: MORPHINE SULFATE 10 MG/ML INJ ONE (19:33)
[2019-05-06 19:37] LABS: URINE AMPHETAMINES SCREEN NEGATIVE; URINE BARBITURATES SCREEN NEGATIVE; URINE BENZODIAZEPINES SCREEN NEGATIVE; URINE COCAINE SCREEN NEGATIVE; URINE MARIJUANA (THC) SCREEN UNCONFIRMED POSITIVE; URINE METHADONE SCREEN NEGATIVE; URINE PHENCYCLIDINE SCREEN NEGATIVE
[2019-05-06] MEDS: OXYCODONE-ACETAMINOPHEN 5-325 MG TABLET PO PRN ×2 (19:45→23:58)
[2019-05-06 19:50] LABS: FREE T4 (FREE THYROXINE) 1.18 ng/dL (0.78-2.19)
[2019-05-06 19:51] LABS: CREATINE KINASE MB 1.88 ng/mL (<4.55)
[2019-05-06 19:56] LABS: TROPONIN I < 0.012 ng/mL
[2019-05-06] MEDS ORDERED: AZTREONAM 1 GM in DEXTROSE 5%-WATER 50 ML IV ONE (20:00)
[2019-05-06] MEDS ORDERED: ENOXAPARIN SODIUM INJ 30 MG/0.3 ML DISP.SYRIN SUBCUT ONE (20:00)
[2019-05-06 20:04] LABS: THYROID STIMULATING HORMONE 2.37 uIU/mL (0.47-4.68)
[2019-05-06 20:13] LABS: ARTERIAL BLOOD BASE EXCESS 6.9 mmol/L; ARTERIAL BLOOD H2CO3 1.64 mmol/L (1.05-1.35); ARTERIAL BLOOD O2 SATURATION 91.7 % (94-98); ARTERIAL BLOOD PCO2 54.4 mmHg (35-45); ARTERIAL BLOOD PO2 62.8 mmHg (80-100); ARTERIAL BLOOD TOTAL CO2 34.7 mmol/L (21-25)
[2019-05-06 20:14] LABS: ARTERIAL BLOOD FIO2 ROOM AIR
[2019-05-06 20:20] LABS: ANION GAP 11 (5-19); BLOOD UREA NITROGEN 32 mg/dL (7-20); CALCIUM 8.8 mg/dL (8.4-10.2); CARBON DIOXIDE 29 mmol/L (22-30); CHLORIDE 98 mmol/L (98-107); GLUCOSE 251 mg/dL (75-110); POTASSIUM 4.4 mmol/L (3.6-5.0)
[2019-05-06] MEDS ORDERED: AZTREONAM INJ 1 GM VIAL IV PRN (20:33)
[2019-05-06] MEDS ORDERED: AZTREONAM INJ 1 GM VIAL ONE (23:03)
[2019-05-06] MEDS: NORMAL SALINE 1000 ML 1,000 ML IV PRN (23:24)
[2019-05-06 23:58] LABS: ANION GAP 9 (5-19); BLOOD UREA NITROGEN 31 mg/dL (7-20); CALCIUM 8.7 mg/dL (8.4-10.2); CARBON DIOXIDE 31 mmol/L (22-30); CHLORIDE 99 mmol/L (98-107); GLUCOSE 124 mg/dL (75-110); POTASSIUM 4.1 mmol/L (3.6-5.0)
[2019-05-07 01:34] LABS: CREATINE KINASE MB 1.31 ng/mL (<4.55)
[2019-05-07 01:35] LABS: TROPONIN I < 0.012 ng/mL
[2019-05-07 03:34] LABS: ANION GAP 6 (5-19); BLOOD UREA NITROGEN 31 mg/dL (7-20); CALCIUM 8.4 mg/dL (8.4-10.2); CARBON DIOXIDE 33 mmol/L (22-30); CHLORIDE 99 mmol/L (98-107); GLUCOSE 89 mg/dL (75-110)
[2019-05-07] MEDS: OXYCODONE-ACETAMINOPHEN 5-325 MG TABLET PO PRN ×4 (03:57→18:27)
[2019-05-07] MEDS: AZTREONAM 1 GM in DEXTROSE 5%-WATER 50 ML IV SCH ×3 (05:20→22:12)
[2019-05-07 07:41] LABS: ABSOLUTE BASOPHILS # (AUTO) 0.1 10^3/uL (0.0-0.2); ABSOLUTE EOSINOPHILS # (AUTO) 0.7 10^3/uL (0.0-0.6); ABSOLUTE LYMPHOCYTES (AUTO) 2.6 10^3/uL (0.5-4.7); ABSOLUTE MONOCYTES (AUTO) 0.7 10^3/uL (0.1-1.4); ABSOLUTE NEUT (AUTO) 5.2 10^3/uL (1.7-8.2); BASOPHILS % (AUTO) 0.8 % (0-2); EOSINOPHILS % (AUTO) 7.4 % (0-6); HEMATOCRIT 31.4 % (36.0-47.0); HEMOGLOBIN 10.3 g/dL (12.0-15.5); LYMPHOCYTES % (AUTO) 28.6 % (13-45); MEAN CORPUSCULAR HEMOGLOBIN 27.6 pg (27.0-33.4); MEAN CORPUSCULAR HGB CONC 32.7 g/dL (32.0-36.0); MEAN CORPUSCULAR VOLUME 84 fl (80-97); MONOCYTES % (AUTO) 7.3 % (3-13); PLATELET COUNT 234 10^3/uL (150-450); RED BLOOD COUNT 3.73 10^6/uL (3.72-5.28); RED CELL DISTRIBUTION WIDTH 14.7 % (11.5-14.0); SEGMENTED NEUTROPHILS % (AUTO) 55.9 % (42-78); TOTAL CELLS COUNTED % (AUTO) 100 %; WHITE BLOOD COUNT 9.2 10^3/uL (4.0-10.5)
[2019-05-07 08:01] LABS: ALBUMIN 3.2 g/dL (3.5-5.0); ALKALINE PHOSPHATASE 68 U/L (38-126); ASPARTATE AMINO TRANSFERASE 28 U/L (14-36); BILIRUBIN,DIRECT 0.2 mg/dL (0.0-0.4); BILIRUBIN,TOTAL 0.4 mg/dL (0.2-1.3); CHOLESTEROL 101.65 mg/dL (0-200); CREATINE KINASE 96 U/L (30-135); TOTAL PROTEIN 6.4 g/dL (6.3-8.2); TRIGLYCERIDES 111 mg/dL (<150)
[2019-05-07 08:04] LABS: ANION GAP 7 (5-19); BLOOD UREA NITROGEN 28 mg/dL (7-20); CALCIUM 8.7 mg/dL (8.4-10.2); CARBON DIOXIDE 32 mmol/L (22-30); CHLORIDE 100 mmol/L (98-107); GLUCOSE 100 mg/dL (75-110); POTASSIUM 4.4 mmol/L (3.6-5.0)
[2019-05-07] MEDS: INSULIN REG, HUMAN 100 UNIT/ML 3 ML VIAL (PYX) SUBCUT SCH ×3 (08:12→16:26)
[2019-05-07 08:21] LABS: DIRECT LDL 42 mg/dL (<100)
[2019-05-07 08:23] LABS: CREATINE KINASE MB 1.32 ng/mL (<4.55)
[2019-05-07 08:34] LABS: TROPONIN I < 0.012 ng/mL
--- NOTE | 2019-05-07 10:34 | XCELERA REPORT ---
[address] [place] [facility] [id number] Lower Extremity Venous Evaluation Procedure: Color flow and duplex imaging of the veins of the left lower extremity as well as the right Common Femoral vein. Right Sided Venous Evaluation The right common femoral vein is fully compressible. Spontaneous and phasic flow is present in the right common femoral vein. Left Sided Venous Evaluation Normal vessel filling wall to wall, compression and augmentation as well as Colour flow down to the infrageniculate veins. Interpretation Summary No duplex evidence of DVT or obstruction in the left lower extremity nor in the right Common Femoral vein. Name: JESU ORR Age: 58 yrs Gender: Female : 1960 Patient Status: Emergency Patient Location: ER Study Date: 05/06/2019 04:55 PM Reason For Study: left lower swelling Ordering Physician: NIK GONZALES Performed By: Nora Rodriguez : NIK GONZALES > Andrea Blevins
[2019-05-07] MEDS: ENOXAPARIN SODIUM INJ 30 MG/0.3 ML DISP.SYRIN SUBCUT SCH (11:35)
[2019-05-07 11:58] LABS: ANION GAP 8 (5-19); BLOOD UREA NITROGEN 26 mg/dL (7-20); CALCIUM 8.8 mg/dL (8.4-10.2); CARBON DIOXIDE 31 mmol/L (22-30); CHLORIDE 99 mmol/L (98-107); GLUCOSE 153 mg/dL (75-110); POTASSIUM 4.5 mmol/L (3.6-5.0)
[2019-05-07] MEDS: NORMAL SALINE 1000 ML 1,000 ML IV PRN ×2 (12:31→22:12)
[2019-05-07 15:24] LABS: ANION GAP 6 (5-19); BLOOD UREA NITROGEN 25 mg/dL (7-20); CALCIUM 8.6 mg/dL (8.4-10.2); CARBON DIOXIDE 32 mmol/L (22-30); CHLORIDE 99 mmol/L (98-107); GLUCOSE 203 mg/dL (75-110); POTASSIUM 4.7 mmol/L (3.6-5.0)
--- NOTE | 2019-05-07 16:47 | PDOC CONSULTATION ---
Consultation Consult Date: 05/07/19 Provider Consulted: LUZ ELENA KEENE History of Present Illness Admission Date/PCP: 05/06/19 18:23 AMABR JOHN Patient complains of: Left Foot Pain History of Present Illness: JESU ORR is a 58 year old female who injured her left foot approximately 3 weeks ago and was seen by her grab hooker. Patient states her pain has slightly worsened w/ activity and was originally wearing a boot. She noticed in the past 3 days increase swelling and redness thus presented to the emergency room. Pain worse w/ ambulation. Denies numbness. Pain /10. Denies fe conrad/chills/sweats. Denies open wound. Has history of previous amputation years ago w/o limitation. Past Medical History Cardiac Medical History: Reports: Congestive Heart Failure, Coronary Artery Disease, Myocardial Infarction - x2, STENTS, Hyperlipidema, Hypertension Denies: DVT Pulmonary Medical History: Reports: Pneumonia Denies: Asthma, Bronchitis, Chronic Obstructive Pulmonary Disease (COPD) Neurological Medical History: Denies: Seizures Endocrine Medical History: Reports: Diabetes Mellitus Type 1, Diabetes Mellitus Type 2 Renal/ Medical History: Reports: End Stage Renal Disease Malignancy Medical History: Reports: Renal (Kidney) Cancer - s/p right nephrectomy September, GI Medical History: Reports: Gastroesophageal Reflux Disease, Hiatal Hernia Denies: Crohn's Disease, Hepatitis, Ulcerative Colitis Musculoskeltal Medical History: Reports: Arthritis - gout Skin Medical History: Denies: Psoriasis Psychiatric Medical History: Reports: Depression Traumatic Medical History: Denies: Traumatic Brain Injury Hematology: Reports: Anemia Denies: Sickle Cell Disease Infectious Medical History: Denies: Clostridium Difficile Past Surgical History Past Surgical History: Reports: Amputation - l big toe, Cardiac Catheterization - stent placement, Cholecystectomy, Coronary Stent - 2013, Orthopedic Surgery - left hand, left great toe amputation, Other - right nephrectomy for ca Denies: Hysterectomy, Mastectomy, Pacemaker Social History Smoking Status: Former Smoker Electronic Cigarette use?: No Frequency of Alcohol Use: None Hx Recreational Drug Use: No Drugs: None Hx Prescription Drug Abuse: No - Advance Directive Resuscitation Status: Full Code Family History Family History: None, Hypertension Parental Family History Reviewed: No Children Family History Reviewed: No Sibling(s) Family History Reviewed.: No Medication/Allergy Home Medications: Alprazolam [Xanax 0.5 mg Tablet] 0.5 mg PO DAILYP PRN 05/07/19 Aspirin [Ecotrin 325 mg EC Tablet] 325 mg PO QAM 05/07/19 Brexpiprazole [Rexulti] 2 mg PO QHS 05/07/19 Calcitriol [Rocaltrol] 0.25 mcg PO MOWEFR 05/07/19 Dexlansoprazole [Dexilant 60 mg Capsule] 60 mg PO QAM 05/07/19 Diltiazem HCl [Cardizem Cd 120 mg Capsule] 120 mg PO QAM 05/07/19 Docusate Sodium [Colace 100 mg Capsule] 200 mg PO QHS 05/07/19 Ferrous Sulfate [Feosol 325 mg Tablet] 325 mg PO BID 05/07/19 Fluoxetine HCl [Prozac] 80 mg PO QAM 05/07/19 Furosemide [Lasix 40 mg Tablet] 40 mg PO QAM 05/07/19 Gabapentin [Neurontin] 600 mg PO Q8 05/07/19 Hydralazine HCl [Apresoline 25 mg Tablet] 25 mg PO Q8 05/07/19 Icosapent Ethyl [Vascepa] 2 gm PO BID 05/07/19 Insulin Degludec [Tresiba Flextouch U-200] 120 units SQ QPM 05/07/19 Insulin Lispro [Humalog Kwikpen U-100] 10 units SQ MEALS 05/07/19 Isosorbide Mononitrate [Imdur 30 mg Tablet.er] 30 mg PO QAM 05/07/19 Lidocaine [Lidoderm 5% (700 mg) Transdermal Patch] 1 patch TD DAILY 05/07/19 Metoprolol Succinate [Toprol XL 100 mg Tablet] 100 mg PO QHS 05/07/19 Multivitamin [Multiple Vitamins] 1 tab PO QAM 05/07/19 Nitroglycerin [Nitrostat] 0.3 mg SL Q5MP PRN 05/07/19 Oxycodone HCl/Acetaminophen [Percocet 7.5-325 mg Tablet] 1 tab PO Q6HP PRN 05/07/19 Prucalopride Succinate [Motegrity] 2 mg PO DAILY 05/07/19 Ranitidine HCl [Zantac] 150 mg PO QAM 05/07/19 Ranolazine [Ranexa 500 mg Tab.sr] 500 mg PO BID 05/07/19 Rosuvastatin Calcium [Crestor] 40 mg PO DAILY 05/07/19 Tizanidine HCl [Zanaflex] 2 mg PO DAILYP PRN 05/07/19 Trazodone HCl [Desyrel] 100 mg PO QHS 05/07/19 Allergies/Adverse Reactions: sulfamethoxazole [From Bactrim] Allergy (Severe, Verified 05/06/19 14:51) rash trimethoprim [From Bactrim] Allergy (Severe, Verified 05/06/19 14:51) rash Penicillins Allergy (Unknown, Verified 05/06/19 14:51) Review of Systems All systems: as per PMH Constitutional: ABSENT: chills, fever(s), headache(s), weight gain, weight loss Eyes: ABSENT: visual disturbances Ears: ABSENT: hearing changes Cardiovascular: ABSENT: chest pain, dyspnea on exertion, edema, orthropnea, palpitations Respiratory: ABSENT: cough, hemoptysis Gastrointestinal: ABSENT: abdominal pain, constipation, diarrhea, hematemesis, hematochezia, nausea, vomiting Genitourinary: ABSENT: dysuria, hematuria Musculoskeletal: PRESENT: as per HPI Integumentary: ABSENT: rash, wounds Neurological: ABSENT: abnormal gait, abnormal speech, confusion, dizziness, focal weakness, syncope Psychiatric: ABSENT: anxiety, depression, homidical ideation, suicidal ideation Endocrine: ABSENT: cold intolerance, heat intolerance, menstrual abnormalities, polydipsia, polyuria Hematologic/Lymphatic: ABSENT: easy bleeding, easy bruising, lymphadenopathy Physical Exam Vital Signs: Temp Pulse Resp BP Pulse Ox 97.7 F 62 18 120/70 91 L 05/07/19 08:07 05/07/19 08:07 05/07/19 08:07 05/07/19 08:07 05/07/19 08:07 Intake & Output 05/06/19 05/07/19 05/08/19 06:59 06:59 06:59 Intake Total 500 1000 Output Total 650 Balance -150 1000 Weight 140.3 kg General appearance: PRESENT: no acute distress, obese, well-developed, well- nourished Head exam: PRESENT: atraumatic, normocephalic Eye exam: PRESENT: conjunctiva pink, EOMI, PERRLA. ABSENT: scleral icterus Ear exam: PRESENT: normal external ear exam Mouth exam: PRESENT: moist, tongue midline Neck exam: PRESENT: full ROM. ABSENT: carotid bruit, JVD, lymphadenopathy, thyromegaly Respiratory exam: PRESENT: unlabored Cardiovascular exam: PRESENT: RRR. ABSENT: diastolic murmur, rubs, systolic murmur Vascular exam: PRESENT: normal capillary refill GI/Abdominal exam: PRESENT: normal bowel sounds, soft. ABSENT: distended, guarding, mass, organolmegaly, rebound, tenderness Rectal exam: PRESENT: deferred Musculoskeletal exam: PRESENT: other - Left Foot: Erythema located along mid foot extending to the ankle w/ swelling. Midfoot deformity w/o skin compromise. Stocking glove neuropathy. Mild TTP. No palpable fluctuance. Previous Great toe amputation. Erythema improved w/ elevation. Weak dorsalis pedis pulse Neurological exam: PRESENT: alert, awake, oriented to person, oriented to place, oriented to time, oriented to situation, CN II-XII grossly intact. ABSENT: motor sensory deficit Psychiatric exam: PRESENT: appropriate affect, normal mood. ABSENT: homicidal ideation, suicidal ideation Skin exam: PRESENT: dry, intact, warm. ABSENT: cyanosis, rash Results Laboratory Results: 05/07/19 06:45 05/07/19 14:45 05/06/19 05/06/19 05/06/19 15:28 15:28 16:29 WBC RBC Hgb Hct MCV MCH MCHC RDW Plt Count Seg Neutrophils % Carbonic Acid HCO3/H2CO3 Ratio ABG pH ABG pCO2 ABG pO2 ABG HCO3 ABG O2 Saturation ABG Base Excess VBG pH VBG pCO2 VBG HCO3 VBG Base Excess FiO2 Sodium Cancelled Potassium Cancelled Chloride Cancelled Carbon Dioxide Cancelled Anion Gap Cancelled BUN Cancelled Creatinine Cancelled Est GFR ( Amer) Cancelled Est GFR (Non-Af Amer) Cancelled Glucose Cancelled Lactic Acid Calcium Cancelled Phosphorus 4.4 Magnesium 2.0 Total Bilirubin AST Alkaline Phosphatase Ammonia Total Protein Albumin Triglycerides Cholesterol LDL Cholesterol Direct VLDL Cholesterol HDL Cholesterol Amylase 52 Lipase 74.4 TSH 2.37 Free T4 1.18 Urine Color YELLOW Urine Appearance CLEAR Urine pH 5.0 Ur Specific [place] 1.010 Urine Protein NEGATIVE Urine Glucose (UA) >=500 H Urine Ketones NEGATIVE Urine Blood NEGATIVE Urine Nitrite NEGATIVE Ur Leukocyte Esterase NEGATIVE Urine WBC (Auto) 1 Urine RBC (Auto) 2 05/06/19 05/06/19 05/06/19 16:32 18:45 19:50 WBC RBC Hgb Hct MCV MCH MCHC RDW Plt Count Seg Neutrophils % Carbonic Acid HCO3/H2CO3 Ratio ABG pH ABG pCO2 ABG pO2 ABG HCO3 ABG O2 Saturation ABG Base Excess VBG pH 7.30 VBG pCO2 74.4 H* VBG HCO3 36.0 H VBG Base Excess 7.2 FiO2 Sodium Potassium Chloride Carbon Dioxide Anion Gap BUN Creatinine Est GFR ( Amer) Est GFR (Non-Af Amer) Glucose Lactic Acid 1.1 Calcium Phosphorus Magnesium Total Bilirubin AST Alkaline Phosphatase Ammonia < 8.7 L Total Protein Albumin Triglycerides Cholesterol LDL Cholesterol Direct VLDL Cholesterol HDL Cholesterol Amylase Lipase TSH Free T4 Urine Color Urine Appearance Urine pH Ur Specific [place] Urine Protein Urine Glucose (UA) Urine Ketones Urine Blood Urine Nitrite Ur Leukocyte Esterase Urine WBC (Auto) Urine RBC (Auto) 05/06/19 05/06/19 05/06/19 19:50 19:55 23:20 WBC RBC Hgb Hct MCV MCH MCHC RDW Plt Count Seg Neutrophils % Carbonic Acid 1.64 H HCO3/H2CO3 Ratio 20:1 ABG pH 7.40 ABG pCO2 54.4 H ABG pO2 62.8 L ABG HCO3 33.0 H ABG O2 Saturation 91.7 L ABG Base Excess 6.9 VBG pH VBG pCO2 VBG HCO3 VBG Base Excess FiO2 ROOM AIR Sodium 138.3 138.5 Potassium 4.4 4.1 Chloride 98 99 Carbon Dioxide 29 31 H Anion Gap 11 9 BUN 32 H 31 H Creatinine 1.99 H 2.08 H Est GFR ( Amer) 31 L 30 L Est GFR (Non-Af Amer) Glucose 251 H 124 H Lactic Acid Calcium 8.8 8.7 Phosphorus Magnesium Total Bilirubin AST Alkaline Phosphatase Ammonia Total Protein Albumin Triglycerides Cholesterol LDL Cholesterol Direct VLDL Cholesterol HDL Cholesterol Amylase Lipase TSH Free T4 Urine Color Urine Appearance Urine pH Ur Specific [place] Urine Protein Urine Glucose (UA) Urine Ketones Urine Blood Urine Nitrite Ur Leukocyte Esterase Urine WBC (Auto) Urine RBC (Auto) 05/07/19 05/07/19 05/07/19 03:08 06:00 06:45 WBC 9.2 RBC 3.73 Hgb 10.3 L Hct 31.4 L MCV 84 MCH 27.6 MCHC 32.7 RDW 14.7 H Plt Count 234 Seg Neutrophils % 55.9 Carbonic Acid HCO3/H2CO3 Ratio ABG pH ABG pCO2 ABG pO2 ABG HCO3 ABG O2 Saturation ABG Base Excess VBG pH VBG pCO2 VBG HCO3 VBG Base Excess FiO2 Sodium 138.3 Potassium 4.0 Chloride 99 Carbon Dioxide 33 H Anion Gap 6 BUN 31 H Creatinine 1.94 H Est GFR ( Amer) 32 L Est GFR (Non-Af Amer) Glucose 89 Lactic Acid Calcium 8.4 Phosphorus Magnesium Total Bilirubin 0.4 AST 28 Alkaline Phosphatase 68 Ammonia Total Protein 6.4 Albumin 3.2 L Triglycerides 111 Cholesterol 101.65 LDL Cholesterol Direct 42 VLDL Cholesterol 22.0 HDL Cholesterol 37 L Amylase Lipase TSH Free T4 Urine Color Urine Appearance Urine pH Ur Specific [place] Urine Protein Urine Glucose (UA) Urine Ketones Urine Blood Urine Nitrite Ur Leukocyte Esterase Urine WBC (Auto) Urine RBC (Auto) 05/07/19 05/07/19 05/07/19 06:45 11:17 14:45 WBC RBC Hgb Hct MCV MCH MCHC RDW Plt Count Seg Neutrophils % Carbonic Acid HCO3/H2CO3 Ratio ABG pH ABG pCO2 ABG pO2 ABG HCO3 ABG O2 Saturation ABG Base Excess VBG pH VBG pCO2 VBG HCO3 VBG Base Excess FiO2 Sodium 138.9 137.8 137.0 Potassium 4.4 4.5 4.7 Chloride 100 99 99 Carbon Dioxide 32 H 31 H 32 H Anion Gap 7 8 6 BUN 28 H 26 H 25 H Creatinine 1.90 H 1.76 H 1.73 H Est GFR ( Amer) 33 L 36 L 37 L Est GFR (Non-Af Amer) Glucose 100 153 H 203 H Lactic Acid Calcium 8.7 8.8 8.6 Phosphorus Magnesium Total Bilirubin AST Alkaline Phosphatase Ammonia Total Protein Albumin Triglycerides Cholesterol LDL Cholesterol Direct VLDL Cholesterol HDL Cholesterol Amylase Lipase TSH Free T4 Urine Color Urine Appearance Urine pH Ur Specific [place] Urine Protein Urine Glucose (UA) Urine Ketones Urine Blood Urine Nitrite Ur Leukocyte Esterase Urine WBC (Auto) Urine RBC (Auto) 05/06/19 05/06/19 05/06/19 15:28 15:28 15:28 Creatine Kinase 148 H CK-MB (CK-2) 1.88 Troponin I < 0.012 NT-Pro-B Natriuret Pep 492 H 05/06/19 05/07/19 05/07/19 19:50 00:50 00:50 Creatine Kinase 109 CK-MB (CK-2) 1.31 Troponin I < 0.012 NT-Pro-B Natriuret Pep 520 H 05/07/19 05/07/19 06:00 06:45 Creatine Kinase 96 CK-MB (CK-2) 1.32 Troponin I < 0.012 NT-Pro-B Natriuret Pep Impressions: Foot X-Ray 05/06/19 14:56 IMPRESSION: Diffuse midfoot dislocation at the tarsal metatarsal level. Diffuse Lisfranc injury. Metatarsals displaced laterally and superiorly with respect to the tarsal bones. Status: Image reviewed by me - I have reviewed patient radiographs consistent w/ Midfoot dislocation w/ collapse and previous great toe amputation. Assessment & Plan - Diagnosis (1) Charcot foot due to diabetes mellitus Is this a current diagnosis for this admission?: Yes Plan: Examination findings consistent w/ Charcot arthropathy w/ infection remaining w/in the differential but given improvement w/ elevation charcot more likely. Given the severity of her radiographs she will likely require referral to foot/ankle specialist or return to her grab hooker for total contact casting as an outpatient.
[2019-05-07] MEDS ORDERED: VANCOMYCIN HCL 2,000 MG in DEXTROSE 5%-WATER 500 ML IV SCH (18:00)
[2019-05-07 19:22] LABS: ANION GAP 6 (5-19); BLOOD UREA NITROGEN 23 mg/dL (7-20); CALCIUM 8.7 mg/dL (8.4-10.2); CARBON DIOXIDE 31 mmol/L (22-30); CHLORIDE 99 mmol/L (98-107); GLUCOSE 186 mg/dL (75-110); POTASSIUM 4.5 mmol/L (3.6-5.0)
[2019-05-07] MEDS ORDERED: (PENDING PHARMACY ID) (Oxycodone Hcl/Acetaminophen [Percocet 7.5-325 Mg Tablet] 1 TAB) PO PRN (19:53)
[2019-05-07] MEDS ORDERED: (PENDING PHARMACY ID) (Tizanidine Hcl [Zanaflex] 2 MG) PO PRN (19:53)
[2019-05-07] MEDS ORDERED: (PENDING PHARMACY ID) (Nitroglycerin [Nitrostat] 0.3 MG) SL PRN (19:53)
[2019-05-07] MEDS ORDERED: NITROGLYCERIN 0.4 MG/TAB 25 TAB/BOTTLE SL PRN (20:09)
[2019-05-07] MEDS ORDERED: OXYCODONE-ACETAMINOPHEN 5-325 MG TABLET PO PRN (20:10)
[2019-05-07] MEDS ORDERED: (PENDING PHARMACY ID) (Brexpiprazole [Rexulti] 2 MG) PO SCH (22:00)
[2019-05-07] MEDS ORDERED: (PENDING PHARMACY ID) (Trazodone Hcl [Desyrel] 100 MG) PO SCH (22:00)
[2019-05-07] MEDS: TRAZODONE HCL 50 MG TABLET PO SCH (22:11)
[2019-05-07] MEDS: GABAPENTIN 300 MG CAPSULE PO SCH (22:11)
[2019-05-07] MEDS: RANOLAZINE 500 MG TAB.SR.12H PO SCH (22:11)
[2019-05-07] MEDS: METOPROLOL SUCCINATE 50 MG TAB.SR.24H PO SCH (22:11)
[2019-05-07] MEDS: DOCUSATE SODIUM 100 MG CAPSULE PO SCH (22:12)
[2019-05-07] MEDS: ATORVASTATIN CALCIUM 80 MG TABLET PO SCH (22:12)
[2019-05-07] MEDS: INSULIN LISPRO 100 UNIT/ML 3 ML VIAL SUBCUT SCH (22:12)
[2019-05-07] MEDS: CALCITRIOL 0.25 MCG CAPSULE PO SCH (22:13)
[2019-05-07] MEDS: HYDRALAZINE HCL 25 MG TABLET PO SCH (22:15)
[2019-05-07] MEDS: ALPRAZOLAM 0.5 MG TABLET PO PRN (22:22)
[2019-05-07] MEDS: OXYCODONE HCL IR 5 MG TABLET PO PRN (22:23)
[2019-05-07 22:54] LABS: ANION GAP 9 (5-19); BLOOD UREA NITROGEN 24 mg/dL (7-20); CALCIUM 8.9 mg/dL (8.4-10.2); CARBON DIOXIDE 29 mmol/L (22-30); CHLORIDE 101 mmol/L (98-107); GLUCOSE 151 mg/dL (75-110); POTASSIUM 4.4 mmol/L (3.6-5.0)
--- NOTE | 2019-05-08 01:20 | PDOC H&P ---
History of Present Illness Admission Date/PCP: 05[facility]06/19 18:[facility] Patient complains of: Left foot pain and swelling History of Present Illness: JESU ORR is a 58 year old female patient known to my practice who presented to the ED with continue left foot pain and worsening swelling. Patient denied any recent trauma, fall or instrumentation. She was diagnosed with questionable fracture affecting same foot, treated with walking boot. She was seen in the office for redness to the left foot with associated swelling and redness of the left foot. She was diagnosed as case of cellulitis and started on Keflex therapy. She reported compliance with the antibiotic usage. There was concern about her left foot X ray that suggested tarsometatarsal fracture with referral to benzene washer for further evaluation. She reported worsening swelling, redness, and pain in the left foot since her evaluation in the office. Her initial evaluation ion the ED was remarkable for concern about left foot cellulitis and left foot X ray that suggested linfranc fracture. She was advised hospitalization for further evaluation and management. Her morbidities are as listed below. Past Medical History Cardiac Medical History: Reports: Congestive Heart Failure, Coronary Artery Disease, Myocardial Infarction - x2, STENTS, Hyperlipidema, Hypertension Denies: DVT Pulmonary Medical History: Reports: Pneumonia Denies: Asthma, Bronchitis, Chronic Obstructive Pulmonary Disease (COPD) Neurological Medical History: Denies: Seizures Endocrine Medical History: Reports: Diabetes Mellitus Type 1, Diabetes Mellitus Type 2 Renal/ Medical History: Reports: End Stage Renal Disease Malignancy Medical History: Reports: Renal (Kidney) Cancer - s/p right nephrectomy September, GI Medical History: Reports: Gastroesophageal Reflux Disease, Hiatal Hernia Denies: Crohn's Disease, Hepatitis, Ulcerative Colitis Musculoskeltal Medical History: Reports: Arthritis - gout Skin Medical History: Denies: Psoriasis Psychiatric Medical History: Reports: Depression Traumatic Medical History: Denies: Traumatic Brain Injury Hematology: Reports: Anemia Denies: Sickle Cell Disease Infectious Medical History: Denies: Clostridium Difficile Past Surgical History Past Surgical History: Reports: Amputation - l big toe, Cardiac Catheterization - stent placement, Cholecystectomy, Coronary Stent - 2013, Orthopedic Surgery - left hand, left great toe amputation, Other - right nephrectomy for ca Denies: Hysterectomy, Mastectomy, Pacemaker Social History Smoking Status: Former Smoker Electronic Cigarette use?: No Frequency of Alcohol Use: None Hx Recreational Drug Use: No Drugs: None Hx Prescription Drug Abuse: No - Advance Directive Resuscitation Status: Full Code Family History Family History: None, Hypertension Parental Family History Reviewed: Yes Children Family History Reviewed: Yes Sibling(s) Family History Reviewed.: Yes Medication/Allergy Home Medications: Alprazolam [Xanax 0.5 mg Tablet] 0.5 mg PO DAILYP PRN 05/07/19 Aspirin [Ecotrin 325 mg EC Tablet] 325 mg PO QAM 05/07/19 Brexpiprazole [Rexulti] 2 mg PO QHS 05/07/19 Calcitriol [Rocaltrol] 0.25 mcg PO MOWEFR 05/07/19 Dexlansoprazole [Dexilant 60 mg Capsule] 60 mg PO QAM 05/07/19 Diltiazem HCl [Cardizem Cd 120 mg Capsule] 120 mg PO QAM 05/07/19 Docusate Sodium [Colace 100 mg Capsule] 200 mg PO QHS 05/07/19 Ferrous Sulfate [Feosol 325 mg Tablet] 325 mg PO BID 05/07/19 Fluoxetine HCl [Prozac] 80 mg PO QAM 05/07/19 Furosemide [Lasix 40 mg Tablet] 40 mg PO QAM 05/07/19 Gabapentin [Neurontin] 600 mg PO Q8 05/07/19 Hydralazine HCl [Apresoline 25 mg Tablet] 25 mg PO Q8 05/07/19 Icosapent Ethyl [Vascepa] 2 gm PO BID 05/07/19 Insulin Degludec [Tresiba Flextouch U-200] 120 units SQ QPM 05/07/19 Insulin Lispro [Humalog Kwikpen U-100] 10 units SQ MEALS 05/07/19 Isosorbide Mononitrate [Imdur 30 mg Tablet.er] 30 mg PO QAM 05/07/19 Lidocaine [Lidoderm 5% (700 mg) Transdermal Patch] 1 patch TD DAILY 05/07/19 Metoprolol Succinate [Toprol XL 100 mg Tablet] 100 mg PO QHS 05/07/19 Multivitamin [Multiple Vitamins] 1 tab PO QAM 05/07/19 Nitroglycerin [Nitrostat] 0.3 mg SL Q5MP PRN 05/07/19 Oxycodone HCl/Acetaminophen [Percocet 7.5-325 mg Tablet] 1 tab PO Q6HP PRN 05/07/19 Prucalopride Succinate [Motegrity] 2 mg PO DAILY 05/07/19 Ranitidine HCl [Zantac] 150 mg PO QAM 05/07/19 Ranolazine [Ranexa 500 mg Tab.sr] 500 mg PO BID 05/07/19 Rosuvastatin Calcium [Crestor] 40 mg PO DAILY 05/07/19 Tizanidine HCl [Zanaflex] 2 mg PO DAILYP PRN 05/07/19 Trazodone HCl [Desyrel] 100 mg PO QHS 05/07/19 Allergies/Adverse Reactions: sulfamethoxazole [From Bactrim] Allergy (Severe, Verified 05/06/19 14:51) rash trimethoprim [From Bactrim] Allergy (Severe, Verified 05/06/19 14:51) rash Penicillins Allergy (Unknown, Verified 05/06/19 14:51) Review of Systems Constitutional: ABSENT: chills, fever(s), headache(s), weight gain, weight loss Eyes: ABSENT: visual disturbances Ears: ABSENT: hearing changes Nose, Mouth, and Throat: ABSENT: headache(s) Cardiovascular: ABSENT: chest pain, dyspnea on exertion, edema, orthropnea, palpitations Respiratory: ABSENT: cough, hemoptysis Gastrointestinal: ABSENT: abdominal pain, constipation, diarrhea, hematemesis, hematochezia, nausea, vomiting Genitourinary: ABSENT: dysuria, hematuria Musculoskeletal: PRESENT: deformity - left for hallux amputation, joint swelling - left ankle Integumentary: ABSENT: rash, wounds Neurological: ABSENT: abnormal gait, abnormal speech, confusion, dizziness, focal weakness, syncope Psychiatric: ABSENT: anxiety, depression, homidical ideation, suicidal ideation Endocrine: ABSENT: cold intolerance, heat intolerance, polydipsia, polyuria Hematologic/Lymphatic: ABSENT: easy bleeding, easy bruising, lymphadenopathy Allergic/Immunologic: ABSENT: seasonal rhinorrhea Physical Exam Vital Signs: Temp Pulse Resp BP Pulse Ox 97.5 F 61 17 109/51 L 94 05/07/19 03:44 05/07/19 03:44 05/07/19 04:21 05/07/19 03:44 05/07/19 03:44 Intake & Output 05/06/19 05/07/19 05/08/19 06:59 06:59 06:59 Intake Total 500 Output Total 650 Balance -150 Weight 140.3 kg General appearance: PRESENT: morbidly obese Head exam: PRESENT: atraumatic, normocephalic Eye exam: PRESENT: conjunctiva pink, EOMI, PERRLA. ABSENT: scleral icterus Ear exam: PRESENT: normal external ear exam Mouth exam: PRESENT: moist Respiratory exam: PRESENT: clear to auscultation tarsha, decreased breath sounds - at lung bases Cardiovascular exam: PRESENT: RRR. ABSENT: diastolic murmur, rubs, systolic m urmur Vascular exam: ABSENT: pallor GI/Abdominal exam: PRESENT: normal bowel sounds, soft. ABSENT: distended, guarding, mass, organolmegaly, rebound, tenderness Rectal exam: PRESENT: deferred Extremities exam: PRESENT: joint swelling - left foot, other - amputated left hallux Musculoskeletal exam: PRESENT: tenderness - left foot Neurological exam: PRESENT: alert, awake, oriented to person, oriented to place, oriented to time, oriented to situation, CN II-XII grossly intact. ABSENT: motor sensory deficit Psychiatric exam: PRESENT: appropriate affect, normal mood. ABSENT: homicidal ideation, suicidal ideation Skin exam: PRESENT: dry, erythema - left foot, warm Results Laboratory Results: 05/07/19 06:45 05/07/19 06:45 05/06/19 05/06/19 05/06/19 15:28 15:28 15:28 WBC 10.5 RBC 3.95 Hgb 10.9 L Hct 33.7 L MCV 85 MCH 27.7 MCHC 32.5 RDW 14.8 H Plt Count 263 Seg Neutrophils % 56.6 Carbonic Acid HCO3/H2CO3 Ratio ABG pH ABG pCO2 ABG pO2 ABG HCO3 ABG O2 Saturation ABG Base Excess VBG pH VBG pCO2 VBG HCO3 VBG Base Excess FiO2 Sodium 136.1 L Cancelled Potassium 4.4 Cancelled Chloride 95 L Cancelled Carbon Dioxide 30 Cancelled Anion Gap 11 Cancelled BUN 31 H Cancelled Creatinine 2.26 H Cancelled Est GFR ( Amer) 27 L Cancelled Est GFR (Non-Af Amer) Cancelled Glucose 437 H* Cancelled Lactic Acid Calcium 8.6 Cancelled Phosphorus 4.4 Magnesium 2.0 Total Bilirubin 0.3 AST 27 Alkaline Phosphatase 73 Ammonia Total Protein 6.8 Albumin 3.5 Amylase 52 Lipase 74.4 TSH Free T4 Urine Color Urine Appearance Urine pH Ur Specific [place] Urine Protein Urine Glucose (UA) Urine Ketones Urine Blood Urine Nitrite Ur Leukocyte Esterase Urine WBC (Auto) Urine RBC (Auto) 05/06/19 05/06/19 05/06/19 15:28 16:29 16:32 WBC RBC Hgb Hct MCV MCH MCHC RDW Plt Count Seg Neutrophils % Carbonic Acid HCO3/H2CO3 Ratio ABG pH ABG pCO2 ABG pO2 ABG HCO3 ABG O2 Saturation ABG Base Excess VBG pH 7.30 VBG pCO2 74.4 H* VBG HCO3 36.0 H VBG Base Excess 7.2 FiO2 Sodium Potassium Chloride Carbon Dioxide Anion Gap BUN Creatinine Est GFR ( Amer) Est GFR (Non-Af Amer) Glucose Lactic Acid Calcium Phosphorus Magnesium Total Bilirubin AST Alkaline Phosphatase Ammonia Total Protein Albumin Amylase Lipase TSH 2.37 Free T4 1.18 Urine Color YELLOW Urine Appearance CLEAR Urine pH 5.0 Ur Specific [place] 1.010 Urine Protein NEGATIVE Urine Glucose (UA) >=500 H Urine Ketones NEGATIVE Urine Blood NEGATIVE Urine Nitrite NEGATIVE Ur Leukocyte Esterase NEGATIVE Urine WBC (Auto) 1 Urine RBC (Auto) 2 05/06/19 05/06/19 05/06/19 18:45 19:50 19:50 WBC RBC Hgb Hct MCV MCH MCHC RDW Plt Count Seg Neutrophils % Carbonic Acid HCO3/H2CO3 Ratio ABG pH ABG pCO2 ABG pO2 ABG HCO3 ABG O2 Saturation ABG Base Excess VBG pH VBG pCO2 VBG HCO3 VBG Base Excess FiO2 Sodium 138.3 Potassium 4.4 Chloride 98 Carbon Dioxide 29 Anion Gap 11 BUN 32 H Creatinine 1.99 H Est GFR ( Amer) 31 L Est GFR (Non-Af Amer) Glucose 251 H Lactic Acid 1.1 Calcium 8.8 Phosphorus Magnesium Total Bilirubin AST Alkaline Phosphatase Ammonia < 8.7 L Total Protein Albumin Amylase Lipase TSH Free T4 Urine Color Urine Appearance Urine pH Ur Specific [place] Urine Protein Urine Glucose (UA) Urine Ketones Urine Blood Urine Nitrite Ur Leukocyte Esterase Urine WBC (Auto) Urine RBC (Auto) 05/06/19 05/06/19 05/07/19 19:55 23:20 03:08 WBC RBC Hgb Hct MCV MCH MCHC RDW Plt Count Seg Neutrophils % Carbonic Acid 1.64 H HCO3/H2CO3 Ratio 20:1 ABG pH 7.40 ABG pCO2 54.4 H ABG pO2 62.8 L ABG HCO3 33.0 H ABG O2 Saturation 91.7 L ABG Base Excess 6.9 VBG pH VBG pCO2 VBG HCO3 VBG Base Excess FiO2 ROOM AIR Sodium 138.5 138.3 Potassium 4.1 4.0 Chloride 99 99 Carbon Dioxide 31 H 33 H Anion Gap 9 6 BUN 31 H 31 H Creatinine 2.08 H 1.94 H Est GFR ( Amer) 30 L 32 L Est GFR (Non-Af Amer) Glucose 124 H 89 Lactic Acid Calcium 8.7 8.4 Phosphorus Magnesium Total Bilirubin AST Alkaline Phosphatase Ammonia Total Protein Albumin Amylase Lipase TSH Free T4 Urine Color Urine Appearance Urine pH Ur Specific [place] Urine Protein Urine Glucose (UA) Urine Ketones Urine Blood Urine Nitrite Ur Leukocyte Esterase Urine WBC (Auto) Urine RBC (Auto) 05/07/19 05/07/19 06:45 06:45 WBC 9.2 RBC 3.73 Hgb 10.3 L Hct 31.4 L MCV 84 MCH 27.6 MCHC 32.7 RDW 14.7 H Plt Count 234 Seg Neutrophils % 55.9 Carbonic Acid HCO3/H2CO3 Ratio ABG pH ABG pCO2 ABG pO2 ABG HCO3 ABG O2 Saturation ABG Base Excess VBG pH VBG pCO2 VBG HCO3 VBG Base Excess FiO2 Sodium 138.9 Potassium 4.4 Chloride 100 Carbon Dioxide 32 H Anion Gap 7 BUN 28 H Creatinine 1.90 H Est GFR ( Amer) 33 L Est GFR (Non-Af Amer) Glucose 100 Lactic Acid Calcium 8.7 Phosphorus Magnesium Total Bilirubin AST Alkaline Phosphatase Ammonia Total Protein Albumin Amylase Lipase TSH Free T4 Urine Color Urine Appearance Urine pH Ur Specific [place] Urine Protein Urine Glucose (UA) Urine Ketones Urine Blood Urine Nitrite Ur Leukocyte Esterase Urine WBC (Auto) Urine RBC (Auto) 05/06/19 05/06/19 05/06/19 15:28 15:28 15:28 Creatine Kinase 148 H CK-MB (CK-2) 1.88 Troponin I < 0.012 NT-Pro-B Natriuret Pep 492 H 05/06/19 05/07/19 05/07/19 19:50 00:50 00:50 Creatine Kinase 109 CK-MB (CK-2) 1.31 Troponin I < 0.012 NT-Pro-B Natriuret Pep 520 H Impressions: Foot X-Ray 05/06/19 14:56 IMPRESSION: Diffuse midfoot dislocation at the tarsal metatarsal level. Diffuse Lisfranc injury. Metatarsals displaced laterally and superiorly with respect to the tarsal bones. Assessment & Plan - Diagnosis (1) Cellulitis of left foot Is this a current diagnosis for this admission?: Yes Plan: See admitting attending physician orders for details about care plan. (2) Lisfranc fracture Is this a current diagnosis for this admission?: Yes Plan: See admitting attending physician orders for details about care plan. (3) Diabetes mellitus type 2 in obese Is this a current diagnosis for this admission?: Yes Plan: See admitting attending physician orders for details about care plan. (4) Hypertension Qualifiers: Hypertension type: essential hypertension Qualified Code(s): I10 - Essential (primary) hypertension Is this a current diagnosis for this admission?: Yes Plan: See admitting attending physician orders for details about care plan. (5) Hyperlipidemia Qualifiers: Hyperlipidemia type: pure hypercholesterolemia Qualified Code(s): E78.00 - Pure hypercholesterolemia, unspecified Is this a current diagnosis for this admission?: Yes Plan: See admitting attending physician orders for details about care plan. (6) CKD (chronic kidney disease) stage 3, GFR 30-59 ml/min Is this a current diagnosis for this admission?: Yes Plan: See admitting attending physician orders for details about care plan. (7) Obstructive sleep apnea of adult Is this a current diagnosis for this admission?: Yes Plan: See admitting attending physician orders for details about care plan. (8) Mixed anxiety and depressive disorder Is this a current diagnosis for this admission?: Yes Plan: See admitting attending physician orders for details about care plan. (9) Peripheral neuropathy Qualifiers: Peripheral neuropathy type: polyneuropathy, unspecified Qualified Code(s): G62.9 - Polyneuropathy, unspecified Is this a current diagnosis for this admission?: Yes Plan: See admitting attending physician orders for details about care plan. (10) Morbid obesity with BMI of 45.0-49.9, adult Is this a current diagnosis for this admission?: Yes Plan: See admitting attending physician orders for details about care plan. - Time Time Spent: 50 to 70 Minutes Medications reviewed and adjusted accordingly: Yes Anticipated discharge: Home with Homehealth Within: Other - Inpatient Certification Based on my medical assessment, after consideration of the patient's comorbidities, presenting symptoms, or acuity I expect that the services needed warrant INPATIENT care.: Yes I certify that my determination is in accordance with my understanding of Medicare's requirements for reasonable and necessary INPATIENT services [42 CFR 412.3e].: Yes Medical Necessity: Significant Comorbidiites Make Outpatient Treatment Too Risky, Need Close Monitoring Due to Risk of Patient Decompensation, Need For IV Fluids, Need For Continuous Telemetry Monitoring, Need for IV Antibiotics, Risk of Complication if Not Cared For in Hospital, Risk of Diagnosis Which Will Require Inpatient Eval/Care/Monitoring Post Hospital Care: D/C Pockets [employer] Necktie Operator Documentation - Plan Summary Plan Summary: See admitting attending physician orders for details about care plan.
[2019-05-08 03:38] LABS: ABSOLUTE BASOPHILS # (AUTO) 0.1 10^3/uL (0.0-0.2); ABSOLUTE EOSINOPHILS # (AUTO) 0.7 10^3/uL (0.0-0.6); ABSOLUTE LYMPHOCYTES (AUTO) 2.4 10^3/uL (0.5-4.7); ABSOLUTE MONOCYTES (AUTO) 0.6 10^3/uL (0.1-1.4); ABSOLUTE NEUT (AUTO) 4.5 10^3/uL (1.7-8.2); BASOPHILS % (AUTO) 0.8 % (0-2); EOSINOPHILS % (AUTO) 8.2 % (0-6); HEMATOCRIT 32.2 % (36.0-47.0); HEMOGLOBIN 10.3 g/dL (12.0-15.5); MEAN CORPUSCULAR HEMOGLOBIN 27.1 pg (27.0-33.4); MEAN CORPUSCULAR HGB CONC 32.1 g/dL (32.0-36.0); MEAN CORPUSCULAR VOLUME 84 fl (80-97); MONOCYTES % (AUTO) 7.3 % (3-13); PLATELET COUNT 251 10^3/uL (150-450); RED BLOOD COUNT 3.82 10^6/uL (3.72-5.28); RED CELL DISTRIBUTION WIDTH 14.7 % (11.5-14.0); SEGMENTED NEUTROPHILS % (AUTO) 54.7 % (42-78); TOTAL CELLS COUNTED % (AUTO) 100 %; WHITE BLOOD COUNT 8.3 10^3/uL (4.0-10.5)
[2019-05-08 03:41] LABS: ALBUMIN 3.1 g/dL (3.5-5.0); ALKALINE PHOSPHATASE 63 U/L (38-126); ASPARTATE AMINO TRANSFERASE 27 U/L (14-36); BILIRUBIN,DIRECT 0.1 mg/dL (0.0-0.4); BILIRUBIN,TOTAL 0.3 mg/dL (0.2-1.3); TOTAL PROTEIN 6.3 g/dL (6.3-8.2)
[2019-05-08 03:42] LABS: ANION GAP 6 (5-19); BLOOD UREA NITROGEN 23 mg/dL (7-20); CALCIUM 8.8 mg/dL (8.4-10.2); CARBON DIOXIDE 33 mmol/L (22-30); CHLORIDE 101 mmol/L (98-107); GLUCOSE 98 mg/dL (75-110); POTASSIUM 4.8 mmol/L (3.6-5.0)
[2019-05-08] MEDS: HYDRALAZINE HCL 25 MG TABLET PO SCH ×3 (05:13→21:47)
[2019-05-08] MEDS: GABAPENTIN 300 MG CAPSULE PO SCH ×3 (05:14→21:47)
[2019-05-08] MEDS: PANTOPRAZOLE SODIUM 40 MG TABLET.DR PO SCH (05:14)
[2019-05-08] MEDS: AZTREONAM 1 GM in DEXTROSE 5%-WATER 50 ML IV SCH ×3 (05:14→21:46)
[2019-05-08] MEDS: OXYCODONE-ACETAMINOPHEN 5-325 MG TABLET PO PRN ×3 (05:22→18:45)
[2019-05-08] MEDS: DILTIAZEM HCL 120 MG CAP.SR.24H PO SCH (07:47)
[2019-05-08] MEDS: ASPIRIN 325 MG TABLET, ENT COATED PO SCH (07:48)
[2019-05-08] MEDS: FUROSEMIDE 40 MG TABLET PO SCH (07:48)
[2019-05-08] MEDS: FLUOXETINE HCL 20 MG CAPSULE PO SCH (07:49)
[2019-05-08] MEDS: MULTIVITAMIN TABLET PO SCH (07:49)
[2019-05-08] MEDS: ISOSORBIDE MONONITRATE 30 MG TAB.ER.24H PO SCH (07:50)
[2019-05-08] MEDS: FAMOTIDINE 20 MG TABLET PO SCH (07:50)
[2019-05-08] MEDS ORDERED: INSULIN LISPRO 10 UNIT SQ SCH (08:00)
[2019-05-08] MEDS ORDERED: (PENDING PHARMACY ID) (Ranitidine Hcl [Zantac] 150 MG) PO SCH (08:00)
[2019-05-08 08:18] LABS: ANION GAP 6 (5-19); BLOOD UREA NITROGEN 22 mg/dL (7-20); CARBON DIOXIDE 31 mmol/L (22-30); CHLORIDE 102 mmol/L (98-107); GLUCOSE 88 mg/dL (75-110)
[2019-05-08] MEDS: INSULIN LISPRO 100 UNIT/ML 3 ML VIAL SUBCUT SCH ×7 (09:00→23:23)
[2019-05-08] MEDS: ENOXAPARIN SODIUM INJ 30 MG/0.3 ML DISP.SYRIN SUBCUT SCH (09:25)
[2019-05-08] MEDS: FERROUS SULFATE 325 MG TABLET PO SCH ×2 (09:26→18:32)
[2019-05-08] MEDS: ALPRAZOLAM 0.5 MG TABLET PO PRN (09:27)
[2019-05-08] MEDS: RANOLAZINE 500 MG TAB.SR.12H PO SCH ×2 (09:27→21:47)
[2019-05-08] MEDS ORDERED: (PENDING PHARMACY ID) (Rosuvastatin Calcium [Crestor] 40 MG) PO SCH (10:00)
[2019-05-08] MEDS ORDERED: PRUCALOPRIDE SUCCINATE 2 MG PO SCH (10:00)
[2019-05-08] MEDS ORDERED: (PENDING PHARMACY ID) (Icosapent Ethyl [Vascepa] 2 GM) PO SCH (10:00)
[2019-05-08] MEDS: LIDOCAINE 5% (700 MG) TRANSDERMAL ADH..PATCH TP SCH (10:00)
[2019-05-08 11:48] LABS: ANION GAP 10 (5-19); BLOOD UREA NITROGEN 22 mg/dL (7-20); CALCIUM 9.3 mg/dL (8.4-10.2); CARBON DIOXIDE 31 mmol/L (22-30); CHLORIDE 100 mmol/L (98-107); GLUCOSE 165 mg/dL (75-110); POTASSIUM 4.9 mmol/L (3.6-5.0)
[2019-05-08] MEDS: VANCOMYCIN HCL 1,000 MG in DEXTROSE 5%-WATER 250 ML IV SCH ×2 (12:54→21:47)
[2019-05-08 15:56] LABS: ANION GAP 8 (5-19); BLOOD UREA NITROGEN 21 mg/dL (7-20); CALCIUM 9.1 mg/dL (8.4-10.2); CARBON DIOXIDE 32 mmol/L (22-30); CHLORIDE 100 mmol/L (98-107); GLUCOSE 140 mg/dL (75-110); POTASSIUM 4.5 mmol/L (3.6-5.0)
[2019-05-08] MEDS ORDERED: INSULIN DEGLUDEC 120 UNIT SUBCUT SCH (18:00)
[2019-05-08] MEDS: TIZANIDINE HCL 4 MG TABLET PO PRN (18:35)
[2019-05-08 19:03] LABS: APPEARANCE,URINE CLEAR; BILIRUBIN,URINE NEGATIVE (NEGATIVE); COLOR,URINE STRAW; GLUCOSE, URINE NEGATIVE (NEGATIVE); KETONES,URINE NEGATIVE (NEGATIVE); LEUKOCYTE ESTERASE,URINE NEGATIVE (NEGATIVE); NITRITE,URINE NEGATIVE (NEGATIVE); PROTEIN,URINE NEGATIVE (NEGATIVE); URINE SPECIFIC GRAVITY 1.006; UROBILINOGEN,URINE NEGATIVE mg/dL (<2.0)
[2019-05-08 20:00] LABS: ANION GAP 7 (5-19); BLOOD UREA NITROGEN 23 mg/dL (7-20); CALCIUM 9.3 mg/dL (8.4-10.2); CARBON DIOXIDE 33 mmol/L (22-30); CHLORIDE 96 mmol/L (98-107); GLUCOSE 207 mg/dL (75-110); POTASSIUM 4.8 mmol/L (3.6-5.0)
[2019-05-08] MEDS ORDERED: ONDANSETRON HCL INJ/PF 4 MG/2 ML SDV IV PRN (20:05)
--- NOTE | 2019-05-08 20:17 | PDOC PROGRESS REPORT ---
Subjective Progress Note for:: 05/08/19 Subjective:: Patient reported episodes of nausea but no vomiting or abdominal pain. No fever or chills. No diarrhea. No chest pain or difficulty with breathing. remain compliant with CPAP machine usage. Reason For Visit: HYPEROSMOLAR T2DM,CELLULITIS OF THE FOOT Physical Exam Vital Signs: Temp Pulse Resp BP Pulse Ox 97.8 F 64 18 153/81 H 100 05/08/19 15:23 05/08/19 15:23 05/08/19 15:23 05/08/19 15:23 05/08/19 15:23 Intake & Output 05/07/19 05/08/19 05/09/19 06:59 06:59 06:59 Intake Total 500 4243 810 Output Total 650 4000 2000 Balance -150 243 -1190 Weight 140.3 kg 141.1 kg General appearance: PRESENT: no acute distress, morbidly obese Head exam: PRESENT: atraumatic, normocephalic Eye exam: PRESENT: conjunctiva pink. ABSENT: scleral icterus Ear exam: PRESENT: normal external ear exam Mouth exam: PRESENT: moist Respiratory exam: PRESENT: clear to auscultation tarsha, decreased breath sounds - at lung bases Cardiovascular exam: PRESENT: RRR. ABSENT: diastolic murmur, rubs, systolic murmur Vascular exam: ABSENT: pallor GI/Abdominal exam: PRESENT: normal bowel sounds, soft. ABSENT: distended, guarding, mass, organolmegaly, rebound, tenderness Extremities exam: PRESENT: pedal edema - minimal involving right foot Musculoskeletal exam: PRESENT: deformity - with right hallux amputation, foot and ankle joint Neurological exam: PRESENT: alert, awake, oriented to person, oriented to place, oriented to time, oriented to situation, CN II-XII grossly intact. ABSENT: motor sensory deficit Psychiatric exam: PRESENT: appropriate affect, normal mood. ABSENT: homicidal ideation, suicidal ideation Skin exam: PRESENT: dry, erythema - improved over dorsum of right foot, warm Results Laboratory Results: 05/08/19 03:03 05/08/19 19:15 05/07/19 05/08/19 05/08/19 22:29 03:03 03:03 WBC 8.3 RBC 3.82 Hgb 10.3 L Hct 32.2 L MCV 84 MCH 27.1 MCHC 32.1 RDW 14.7 H Plt Count 251 Seg Neutrophils % 54.7 Sodium 139.4 Potassium 4.4 Chloride 101 Carbon Dioxide 29 Anion Gap 9 BUN 24 H Creatinine 1.75 H Est GFR ( Amer) 36 L Glucose 151 H Calcium 8.9 Total Bilirubin 0.3 AST 27 Alkaline Phosphatase 63 Total Protein 6.3 Albumin 3.1 L Urine Color Urine Appearance Urine pH Ur Specific [place] Urine Protein Urine Glucose (UA) Urine Ketones Urine Blood Urine Nitrite Ur Leukocyte Esterase Urine WBC (Auto) Urine RBC (Auto) 05/08/19 05/08/19 05/08/19 03:03 07:22 11:11 WBC RBC Hgb Hct MCV MCH MCHC RDW Plt Count Seg Neutrophils % Sodium 139.5 139.3 141.3 Potassium 4.8 5.0 4.9 Chloride 101 102 100 Carbon Dioxide 33 H 31 H 31 H Anion Gap 6 6 10 BUN 23 H 22 H 22 H Creatinine 1.69 H 1.59 H 1.68 H Est GFR ( Amer) 38 L 41 L 38 L Glucose 98 88 165 H Calcium 8.8 9.0 9.3 Total Bilirubin AST Alkaline Phosphatase Total Protein Albumin Urine Color Urine Appearance Urine pH Ur Specific [place] Urine Protein Urine Glucose (UA) Urine Ketones Urine Blood Urine Nitrite Ur Leukocyte Esterase Urine WBC (Auto) Urine RBC (Auto) 05/08/19 05/08/19 05/08/19 14:59 15:15 19:15 WBC RBC Hgb Hct MCV MCH MCHC RDW Plt Count Seg Neutrophils % Sodium 140.4 136.4 L Potassium 4.5 4.8 Chloride 100 96 L Carbon Dioxide 32 H 33 H Anion Gap 8 7 BUN 21 H 23 H Creatinine 1.73 H 1.89 H Est GFR ( Amer) 37 L 33 L Glucose 140 H 207 H Calcium 9.1 9.3 Total Bilirubin AST Alkaline Phosphatase Total Protein Albumin Urine Color STRAW Urine Appearance CLEAR Urine pH 6.0 Ur Specific [place] 1.006 Urine Protein NEGATIVE Urine Glucose (UA) NEGATIVE Urine Ketones NEGATIVE Urine Blood NEGATIVE Urine Nitrite NEGATIVE Ur Leukocyte Esterase NEGATIVE Urine WBC (Auto) 0 Urine RBC (Auto) 0 05/06/19 05/06/19 05/06/19 15:28 15:28 15:28 Creatine Kinase 148 H CK-MB (CK-2) 1.88 Troponin I < 0.012 NT-Pro-B Natriuret Pep 492 H 05/06/19 05/07/19 05/07/19 19:50 00:50 00:50 Creatine Kinase 109 CK-MB (CK-2) 1.31 Troponin I < 0.012 NT-Pro-B Natriuret Pep 520 H 05/07/19 05/07/19 06:00 06:45 Creatine Kinase 96 CK-MB (CK-2) 1.32 Troponin I < 0.012 NT-Pro-B Natriuret Pep Impressions: Foot X-Ray 05/06/19 14:56 IMPRESSION: Diffuse midfoot dislocation at the tarsal metatarsal level. Diffuse Lisfranc injury. Metatarsals displaced laterally and superiorly with respect to the tarsal bones. Assessment & Plan - Diagnosis (1) Cellulitis of left foot Is this a current diagnosis for this admission?: Yes (2) Lisfranc fracture Is this a current diagnosis for this admission?: Yes (3) Diabetes mellitus type 2 in obese Is this a current diagnosis for this admission?: Yes (4) Hypertension Qualifiers: Hypertension type: essential hypertension Qualified Code(s): I10 - Essential (primary) hypertension Is this a current diagnosis for this admission?: Yes (5) Hyperlipidemia Qualifiers: Hyperlipidemia type: pure hypercholesterolemia Qualified Code(s): E78.00 - Pure hypercholesterolemia, unspecified Is this a current diagnosis for this admission?: Yes (6) CKD (chronic kidney disease) stage 3, GFR 30-59 ml/min Is this a current diagnosis for this admission?: Yes (7) Obstructive sleep apnea of adult Is this a current diagnosis for this admission?: Yes (8) Mixed anxiety and depressive disorder Is this a current diagnosis for this admission?: Yes (9) Peripheral neuropathy Qualifiers: Peripheral neuropathy type: polyneuropathy, unspecified Qualified Code(s): G62.9 - Polyneuropathy, unspecified Is this a current diagnosis for this admission?: Yes (10) Morbid obesity with BMI of 45.0-49.9, adult Is this a current diagnosis for this admission?: Yes - Time Time Spent with patient: 25-34 minutes Medications reviewed and adjusted accordingly: Yes Anticipated discharge: Home with Homehealth Within: Other - Inpatient Certification Based on my medical assessment, after consideration of the patient's comorbidities, presenting symptoms, or acuity I expect that the services needed warrant INPATIENT care.: Yes I certify that my determination is in accordance with my understanding of Medicare's requirements for reasonable and necessary INPATIENT services [42 CFR 412.3e].: Yes Medical Necessity: Significant Comorbidiites Make Outpatient Treatment Too Risky, Need Close Monitoring Due to Risk of Patient Decompensation, Need For IV Fluids, Need For Continuous Telemetry Monitoring, Need for IV Antibiotics, Risk of Complication if Not Cared For in Hospital, Risk of Diagnosis Which Will Require Inpatient Eval/Care/Monitoring 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 Follow up on blood and urine culture findings. Start on Zofran 4mg IV q 4 hours prn for nausea.
[2019-05-08] MEDS: METOPROLOL SUCCINATE 50 MG TAB.SR.24H PO SCH (21:47)
[2019-05-08] MEDS: TRAZODONE HCL 50 MG TABLET PO SCH (21:47)
[2019-05-08] MEDS: ATORVASTATIN CALCIUM 80 MG TABLET PO SCH (21:47)
[2019-05-08] MEDS: DOCUSATE SODIUM 100 MG CAPSULE PO SCH (21:47)
[2019-05-08] MEDS: NORMAL SALINE 1000 ML 1,000 ML IV PRN (21:48)
[2019-05-08 23:34] LABS: ANION GAP 9 (5-19); BLOOD UREA NITROGEN 23 mg/dL (7-20); CALCIUM 9.1 mg/dL (8.4-10.2); CARBON DIOXIDE 32 mmol/L (22-30); CHLORIDE 99 mmol/L (98-107); GLUCOSE 169 mg/dL (75-110); POTASSIUM 4.1 mmol/L (3.6-5.0)
[2019-05-09 03:16] LABS: ABSOLUTE BASOPHILS # (AUTO) 0.1 10^3/uL (0.0-0.2); ABSOLUTE EOSINOPHILS # (AUTO) 0.6 10^3/uL (0.0-0.6); ABSOLUTE LYMPHOCYTES (AUTO) 3.2 10^3/uL (0.5-4.7); ABSOLUTE MONOCYTES (AUTO) 0.7 10^3/uL (0.1-1.4); ABSOLUTE NEUT (AUTO) 5.8 10^3/uL (1.7-8.2); BASOPHILS % (AUTO) 0.9 % (0-2); EOSINOPHILS % (AUTO) 5.3 % (0-6); HEMATOCRIT 32.8 % (36.0-47.0); HEMOGLOBIN 10.5 g/dL (12.0-15.5); MEAN CORPUSCULAR VOLUME 84 fl (80-97); MONOCYTES % (AUTO) 6.7 % (3-13); PLATELET COUNT 291 10^3/uL (150-450); RED CELL DISTRIBUTION WIDTH 14.6 % (11.5-14.0); SEGMENTED NEUTROPHILS % (AUTO) 56.1 % (42-78); TOTAL CELLS COUNTED % (AUTO) 100 %; WHITE BLOOD COUNT 10.4 10^3/uL (4.0-10.5)
[2019-05-09 03:41] LABS: ALBUMIN 3.4 g/dL (3.5-5.0); ALKALINE PHOSPHATASE 69 U/L (38-126); ASPARTATE AMINO TRANSFERASE 24 U/L (14-36); BILIRUBIN,DIRECT 0.1 mg/dL (0.0-0.4); BILIRUBIN,TOTAL 0.4 mg/dL (0.2-1.3); TOTAL PROTEIN 6.6 g/dL (6.3-8.2)
[2019-05-09 03:42] LABS: ANION GAP 8 (5-19); BLOOD UREA NITROGEN 23 mg/dL (7-20); CALCIUM 9.1 mg/dL (8.4-10.2); CARBON DIOXIDE 32 mmol/L (22-30); CHLORIDE 99 mmol/L (98-107); GLUCOSE 127 mg/dL (75-110); POTASSIUM 4.1 mmol/L (3.6-5.0)
[2019-05-09] MEDS: HYDRALAZINE HCL 25 MG TABLET PO SCH ×3 (06:32→21:22)
[2019-05-09] MEDS: PANTOPRAZOLE SODIUM 40 MG TABLET.DR PO SCH (06:32)
[2019-05-09] MEDS: GABAPENTIN 300 MG CAPSULE PO SCH ×3 (06:32→21:21)
[2019-05-09] MEDS: AZTREONAM 1 GM in DEXTROSE 5%-WATER 50 ML IV SCH ×3 (06:32→21:21)
[2019-05-09] MEDS: NORMAL SALINE 1000 ML 1,000 ML IV PRN (06:35)
[2019-05-09] MEDS: MULTIVITAMIN TABLET PO SCH (08:01)
[2019-05-09] MEDS: ASPIRIN 325 MG TABLET, ENT COATED PO SCH (08:01)
[2019-05-09] MEDS: DILTIAZEM HCL 120 MG CAP.SR.24H PO SCH (08:01)
[2019-05-09] MEDS: FUROSEMIDE 40 MG TABLET PO SCH (08:01)
[2019-05-09] MEDS: FLUOXETINE HCL 20 MG CAPSULE PO SCH (08:01)
[2019-05-09] MEDS: FAMOTIDINE 20 MG TABLET PO SCH (08:01)
[2019-05-09] MEDS: OXYCODONE-ACETAMINOPHEN 5-325 MG TABLET PO PRN ×3 (08:01→18:45)
[2019-05-09] MEDS: ISOSORBIDE MONONITRATE 30 MG TAB.ER.24H PO SCH (08:01)
[2019-05-09] MEDS: INSULIN LISPRO 100 UNIT/ML 3 ML VIAL SUBCUT SCH ×7 (08:37→21:24)
[2019-05-09 09:05] LABS: ANION GAP 10 (5-19); BLOOD UREA NITROGEN 23 mg/dL (7-20); CALCIUM 9.5 mg/dL (8.4-10.2); CARBON DIOXIDE 28 mmol/L (22-30); CHLORIDE 100 mmol/L (98-107); GLUCOSE 157 mg/dL (75-110); POTASSIUM 4.4 mmol/L (3.6-5.0)
[2019-05-09] MEDS: FERROUS SULFATE 325 MG TABLET PO SCH ×2 (10:20→17:05)
[2019-05-09] MEDS: VANCOMYCIN HCL 1,000 MG in DEXTROSE 5%-WATER 250 ML IV SCH ×2 (10:20→21:22)
[2019-05-09] MEDS: ENOXAPARIN SODIUM INJ 30 MG/0.3 ML DISP.SYRIN SUBCUT SCH (10:20)
[2019-05-09] MEDS: LIDOCAINE 5% (700 MG) TRANSDERMAL ADH..PATCH TP SCH (10:20)
[2019-05-09] MEDS: RANOLAZINE 500 MG TAB.SR.12H PO SCH ×2 (10:20→21:21)
[2019-05-09 12:24] LABS: ANION GAP 11 (5-19); BLOOD UREA NITROGEN 23 mg/dL (7-20); CALCIUM 9.3 mg/dL (8.4-10.2); CARBON DIOXIDE 30 mmol/L (22-30); CHLORIDE 99 mmol/L (98-107); GLUCOSE 280 mg/dL (75-110); POTASSIUM 4.5 mmol/L (3.6-5.0)
[2019-05-09 15:58] LABS: ANION GAP 13 (5-19); BLOOD UREA NITROGEN 24 mg/dL (7-20); CALCIUM 9.2 mg/dL (8.4-10.2); CARBON DIOXIDE 27 mmol/L (22-30); CHLORIDE 100 mmol/L (98-107); GLUCOSE 253 mg/dL (75-110); POTASSIUM 4.3 mmol/L (3.6-5.0)
[2019-05-09 19:41] LABS: ANION GAP 12 (5-19); BLOOD UREA NITROGEN 24 mg/dL (7-20); CALCIUM 8.9 mg/dL (8.4-10.2); CARBON DIOXIDE 29 mmol/L (22-30); CHLORIDE 100 mmol/L (98-107); GLUCOSE 206 mg/dL (75-110)
[2019-05-09] MEDS: METOPROLOL SUCCINATE 50 MG TAB.SR.24H PO SCH (21:20)
[2019-05-09] MEDS: ATORVASTATIN CALCIUM 80 MG TABLET PO SCH (21:21)
[2019-05-09] MEDS: DOCUSATE SODIUM 100 MG CAPSULE PO SCH (21:21)
[2019-05-09] MEDS: TRAZODONE HCL 50 MG TABLET PO SCH (21:21)
[2019-05-09] MEDS: CALCITRIOL 0.25 MCG CAPSULE PO SCH (21:33)
--- NOTE | 2019-05-09 22:16 | PDOC PROGRESS REPORT ---
Subjective Progress Note for:: 05/09/19 Subjective:: Patient denied any chest pain or difficulty with breathing. She reported improvement in her nausea. No fever or chills. No diarrhea. She remain on IV Vancomycin and Aztreonam coverage. Reason For Visit: HYPEROSMOLAR T2DM,CELLULITIS OF THE FOOT Physical Exam Vital Signs: Temp Pulse Resp BP Pulse Ox 99.1 F 60 16 121/67 98 05/09/19 11:34 05/09/19 19:00 05/09/19 11:34 05/09/19 11:34 05/09/19 11:34 Intake & Output 05/08/19 05/09/19 05/10/19 06:59 06:59 06:59 Intake Total 4243 2475 Output Total 4000 4000 Balance 243 -1525 Weight 141.1 kg 138.9 kg Physical Exam: General appearance: PRESENT: no acute distress, morbidly obese Head exam: PRESENT: atraumatic, normocephalic Eye exam: PRESENT: conjunctiva pink. ABSENT: pallor, scleral icterus Ear exam: PRESENT: normal external ear exam Mouth exam: PRESENT: moist Respiratory exam: PRESENT: clear to auscultation tarsha, decreased breath sounds - at lung bases Cardiovascular exam: PRESENT: RRR. ABSENT: diastolic murmur, rubs, systolic murmur GI/Abdominal exam: PRESENT: normal bowel sounds, soft. ABSENT: distended, guarding, mass, organomegaly, rebound, tenderness Extremities exam: PRESENT: pedal edema - minimal involving right foot Musculoskeletal exam: PRESENT: improved tenderness to palpation of left foot, deformity - with right hallux amputation, foot and ankle joint Neurological exam: PRESENT: alert, awake, oriented to person, oriented to place, oriented to time, oriented to situation, CN II-XII grossly intact. ABSENT: motor sensory deficit Psychiatric exam: PRESENT: appropriate affect, normal mood. ABSENT: homicidal ideation, suicidal ideation Skin exam: PRESENT: dry, erythema - improved over dorsum of right foot, warm Results Laboratory Results: 05/09/19 02:56 05/08/19 05/08/19 05/09/19 19:15 22:54 02:56 WBC 10.4 RBC 3.90 Hgb 10.5 L Hct 32.8 L MCV 84 MCH 27.0 MCHC 32.0 RDW 14.6 H Plt Count 291 Seg Neutrophils % 56.1 Sodium 136.4 L 140.0 Potassium 4.8 4.1 Chloride 96 L 99 Carbon Dioxide 33 H 32 H Anion Gap 7 9 BUN 23 H 23 H Creatinine 1.89 H 2.06 H Est GFR ( Amer) 33 L 30 L Glucose 207 H 169 H Calcium 9.3 9.1 Total Bilirubin AST Alkaline Phosphatase Total Protein Albumin 05/09/19 05/09/19 05/09/19 02:56 02:56 08:20 WBC RBC Hgb Hct MCV MCH MCHC RDW Plt Count Seg Neutrophils % Sodium 139.4 138.4 Potassium 4.1 4.4 Chloride 99 100 Carbon Dioxide 32 H 28 Anion Gap 8 10 BUN 23 H 23 H Creatinine 1.79 H 1.74 H Est GFR ( Amer) 35 L 37 L Glucose 127 H 157 H Calcium 9.1 9.5 Total Bilirubin 0.4 AST 24 Alkaline Phosphatase 69 Total Protein 6.6 Albumin 3.4 L 05/09/19 05/09/19 11:19 15:18 WBC RBC Hgb Hct MCV MCH MCHC RDW Plt Count Seg Neutrophils % Sodium 140.4 139.8 Potassium 4.5 4.3 Chloride 99 100 Carbon Dioxide 30 27 Anion Gap 11 13 BUN 23 H 24 H Creatinine 1.77 H 1.69 H Est GFR ( Amer) 36 L 38 L Glucose 280 H 253 H Calcium 9.3 9.2 Total Bilirubin AST Alkaline Phosphatase Total Protein Albumin 05/06/19 05/06/19 05/06/19 15:28 15:28 15:28 Creatine Kinase 148 H CK-MB (CK-2) 1.88 Troponin I < 0.012 NT-Pro-B Natriuret Pep 492 H 05/06/19 05/07/19 05/07/19 19:50 00:50 00:50 Creatine Kinase 109 CK-MB (CK-2) 1.31 Troponin I < 0.012 NT-Pro-B Natriuret Pep 520 H 05/07/19 05/07/19 06:00 06:45 Creatine Kinase 96 CK-MB (CK-2) 1.32 Troponin I < 0.012 NT-Pro-B Natriuret Pep Impressions: Foot X-Ray 05/06/19 14:56 IMPRESSION: Diffuse midfoot dislocation at the tarsal metatarsal level. Diffuse Lisfranc injury. Metatarsals displaced laterally and superiorly with respect to the tarsal bones. Assessment & Plan - Diagnosis (1) Cellulitis of left foot Is this a current diagnosis for this admission?: Yes (2) Lisfranc fracture Is this a current diagnosis for this admission?: Yes (3) Diabetes mellitus type 2 in obese Is this a current diagnosis for this admission?: Yes (4) Hypertension Qualifiers: Hypertension type: essential hypertension Qualified Code(s): I10 - Essential (primary) hypertension Is this a current diagnosis for this admission?: Yes (5) Hyperlipidemia Qualifiers: Hyperlipidemia type: pure hypercholesterolemia Qualified Code(s): E78.00 - Pure hypercholesterolemia, unspecified Is this a current diagnosis for this admission?: Yes (6) CKD (chronic kidney disease) stage 3, GFR 30-59 ml/min Is this a current diagnosis for this admission?: Yes (7) Obstructive sleep apnea of adult Is this a current diagnosis for this admission?: Yes (8) Mixed anxiety and depressive disorder Is this a current diagnosis for this admission?: Yes (9) Peripheral neuropathy Qualifiers: Peripheral neuropathy type: polyneuropathy, unspecified Qualified Code(s): G62.9 - Polyneuropathy, unspecified Is this a current diagnosis for this admission?: Yes (10) Morbid obesity with BMI of 45.0-49.9, adult Is this a current diagnosis for this admission?: Yes - Time Time Spent with patient: 25-34 minutes Level of Care: IMCU Medications reviewed and adjusted accordingly: Yes Anticipated discharge: Home with Homehealth Within: Other - Inpatient Certification Based on my medical assessment, after consideration of the patient's comorbidities, presenting symptoms, or acuity I expect that the services needed warrant INPATIENT care.: Yes I certify that my determination is in accordance with my understanding of Medicare's requirements for reasonable and necessary INPATIENT services [42 CFR 412.3e].: Yes Medical Necessity: Significant Comorbidiites Make Outpatient Treatment Too Risky, Need Close Monitoring Due to Risk of Patient Decompensation, Need For IV Fluids, Need For Continuous Telemetry Monitoring, Need for IV Antibiotics, Risk of Complication if Not Cared For in Hospital, Risk of Diagnosis Which Will R equire Inpatient Eval/Care/Monitoring Post 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 Order walking boot for left foot. Continue physical therapy interventions.
[2019-05-09 23:02] LABS: ANION GAP 11 (5-19); BLOOD UREA NITROGEN 24 mg/dL (7-20); CALCIUM 8.8 mg/dL (8.4-10.2); CARBON DIOXIDE 29 mmol/L (22-30); CHLORIDE 102 mmol/L (98-107); GLUCOSE 184 mg/dL (75-110)
[2019-05-09 23:06] LABS: VANCOMYCIN,TROUGH 34.7 ug/mL (5.0-20.0)
[2019-05-10] MEDS: OXYCODONE-ACETAMINOPHEN 5-325 MG TABLET PO PRN ×4 (00:17→19:34)
[2019-05-10 03:29] LABS: ANION GAP 7 (5-19); BLOOD UREA NITROGEN 22 mg/dL (7-20); CALCIUM 9.1 mg/dL (8.4-10.2); CARBON DIOXIDE 31 mmol/L (22-30); CHLORIDE 103 mmol/L (98-107); GLUCOSE 157 mg/dL (75-110); POTASSIUM 3.7 mmol/L (3.6-5.0)
[2019-05-10] MEDS: NORMAL SALINE 1000 ML 1,000 ML IV PRN (05:41)
[2019-05-10] MEDS: GABAPENTIN 300 MG CAPSULE PO SCH ×3 (05:42→22:26)
[2019-05-10] MEDS: HYDRALAZINE HCL 25 MG TABLET PO SCH ×3 (05:42→22:25)
[2019-05-10] MEDS: PANTOPRAZOLE SODIUM 40 MG TABLET.DR PO SCH (05:42)
[2019-05-10] MEDS: AZTREONAM 1 GM in DEXTROSE 5%-WATER 50 ML IV SCH ×3 (05:43→22:26)
[2019-05-10] MEDS: TIZANIDINE HCL 4 MG TABLET PO PRN (08:02)
[2019-05-10] MEDS: INSULIN LISPRO 100 UNIT/ML 3 ML VIAL SUBCUT SCH ×7 (08:20→22:20)
[2019-05-10] MEDS: ISOSORBIDE MONONITRATE 30 MG TAB.ER.24H PO SCH (08:33)
[2019-05-10] MEDS: FLUOXETINE HCL 20 MG CAPSULE PO SCH (08:33)
[2019-05-10] MEDS: MULTIVITAMIN TABLET PO SCH (08:33)
[2019-05-10] MEDS: FAMOTIDINE 20 MG TABLET PO SCH (08:34)
[2019-05-10] MEDS: DILTIAZEM HCL 120 MG CAP.SR.24H PO SCH (08:34)
[2019-05-10] MEDS: FUROSEMIDE 40 MG TABLET PO SCH (08:34)
[2019-05-10] MEDS: ASPIRIN 325 MG TABLET, ENT COATED PO SCH (08:34)
[2019-05-10 08:45] LABS: ANION GAP 10 (5-19); BLOOD UREA NITROGEN 22 mg/dL (7-20); CALCIUM 9.2 mg/dL (8.4-10.2); CARBON DIOXIDE 30 mmol/L (22-30); CHLORIDE 102 mmol/L (98-107); GLUCOSE 125 mg/dL (75-110); POTASSIUM 4.5 mmol/L (3.6-5.0)
[2019-05-10] MEDS: RANOLAZINE 500 MG TAB.SR.12H PO SCH ×2 (09:56→22:26)
[2019-05-10] MEDS: FERROUS SULFATE 325 MG TABLET PO SCH ×2 (09:56→17:00)
[2019-05-10] MEDS: ENOXAPARIN SODIUM INJ 30 MG/0.3 ML DISP.SYRIN SUBCUT SCH (09:56)
[2019-05-10] MEDS: LIDOCAINE 5% (700 MG) TRANSDERMAL ADH..PATCH TP SCH (09:58)
[2019-05-10 11:13] LABS: ANION GAP 8 (5-19); BLOOD UREA NITROGEN 23 mg/dL (7-20); CALCIUM 8.9 mg/dL (8.4-10.2); CARBON DIOXIDE 29 mmol/L (22-30); CHLORIDE 102 mmol/L (98-107); GLUCOSE 171 mg/dL (75-110); POTASSIUM 4.5 mmol/L (3.6-5.0)
[2019-05-10 11:18] LABS: VANCOMYCIN,TROUGH 19.6 ug/mL (5.0-20.0)
[2019-05-10 16:39] LABS: ANION GAP 10 (5-19); BLOOD UREA NITROGEN 23 mg/dL (7-20); CALCIUM 9.1 mg/dL (8.4-10.2); CARBON DIOXIDE 29 mmol/L (22-30); CHLORIDE 103 mmol/L (98-107); GLUCOSE 127 mg/dL (75-110); POTASSIUM 4.7 mmol/L (3.6-5.0)
--- NOTE | 2019-05-10 19:08 | PDOC PROGRESS REPORT ---
Subjective Progress Note for:: 05/10/19 Subjective:: no chest pain or difficulty with breathing. No abdominal pain, fever or chills. She participated in PT session with non-weight bearing cam boot. Remain on IV Vancomycin and Aztreonam coverage. Reason For Visit: HYPEROSMOLAR T2DM,CELLULITIS OF THE FOOT Physical Exam Vital Signs: Temp Pulse Resp BP Pulse Ox 98.4 F 59 L 18 123/67 98 05/10/19 12:12 05/10/19 14:00 05/10/19 12:12 05/10/19 12:12 05/10/19 12:12 Intake & Output 05/09/19 05/10/19 05/11/19 06:59 06:59 06:59 Intake Total 2475 4355 250 Output Total 4000 4950 Balance -1525 -595 250 Weight 138.9 kg 138.8 kg Physical Exam: General appearance: PRESENT: no acute distress, morbidly obese Head exam: PRESENT: atraumatic, normocephalic Eye exam: PRESENT: conjunctiva pink. ABSENT: pallor, scleral icterus Ear exam: PRESENT: normal external ear exam Mouth exam: PRESENT: moist Respiratory exam: PRESENT: clear to auscultation tarsha, decreased breath sounds - at lung bases Cardiovascular exam: PRESENT: RRR. ABSENT: diastolic murmur, rubs, systolic mu rmur GI/Abdominal exam: PRESENT: normal bowel sounds, soft. ABSENT: distended, guarding, mass, organomegaly, rebound, tenderness Extremities exam: PRESENT: minimal left foot pedal edema with resolving erythema. Musculoskeletal exam: PRESENT: improved tenderness to palpation of left foot, deformity - with right hallux amputation, foot and ankle joint Neurological exam: PRESENT: alert, awake, oriented to person, oriented to place, oriented to time, oriented to situation, CN II-XII grossly intact. ABSENT: motor sensory deficit Psychiatric exam: PRESENT: appropriate affect, normal mood. ABSENT: homicidal ideation, suicidal ideation Skin exam: PRESENT: dry, erythema - improved over dorsum of right foot, warm Results Laboratory Results: 05/09/19 02:56 05/10/19 15:41 05/09/19 05/09/19 05/10/19 19:04 22:30 02:59 Sodium 140.7 141.5 141.2 Potassium 4.0 4.0 3.7 Chloride 100 102 103 Carbon Dioxide 29 29 31 H Anion Gap 12 11 7 BUN 24 H 24 H 22 H Creatinine 2.05 H 2.04 H 2.00 H Est GFR ( Amer) 30 L 30 L 31 L Glucose 206 H 184 H 157 H Calcium 8.9 8.8 9.1 05/10/19 05/10/19 05/10/19 07:47 10:22 15:41 Sodium 141.7 138.5 141.6 Potassium 4.5 4.5 4.7 Chloride 102 102 103 Carbon Dioxide 30 29 29 Anion Gap 10 8 10 BUN 22 H 23 H 23 H Creatinine 1.79 H 1.71 H 1.88 H Est GFR ( Amer) 35 L 37 L 33 L Glucose 125 H 171 H 127 H Calcium 9.2 8.9 9.1 05/08/19 15:15 Clean Catch Midstream Urine Culture - Final NO GROWTH 2 DAYS 05/06/19 05/06/19 05/06/19 15:28 15:28 15:28 Creatine Kinase 148 H CK-MB (CK-2) 1.88 Troponin I < 0.012 NT-Pro-B Natriuret Pep 492 H 05/06/19 05/07/19 05/07/19 19:50 00:50 00:50 Creatine Kinase 109 CK-MB (CK-2) 1.31 Troponin I < 0.012 NT-Pro-B Natriuret Pep 520 H 05/07/19 05/07/19 06:00 06:45 Creatine Kinase 96 CK-MB (CK-2) 1.32 Troponin I < 0.012 NT-Pro-B Natriuret Pep Impressions: Foot X-Ray 05/06/19 14:56 IMPRESSION: Diffuse midfoot dislocation at the tarsal metatarsal level. Diffuse Lisfranc injury. Metatarsals displaced laterally and superiorly with respect to the tarsal bones. Assessment & Plan - Diagnosis (1) Cellulitis of left foot Is this a current diagnosis for this admission?: Yes (2) Lisfranc fracture Is this a current diagnosis for this admission?: Yes (3) Diabetes mellitus type 2 in obese Is this a current diagnosis for this admission?: Yes (4) Hypertension Qualifiers: Hypertension type: essential hypertension Qualified Code(s): I10 - Essential (primary) hypertension Is this a current diagnosis for this admission?: Yes (5) Hyperlipidemia Qualifiers: Hyperlipidemia type: pure hypercholesterolemia Qualified Code(s): E78.00 - Pure hypercholesterolemia, unspecified Is this a current diagnosis for this admission?: Yes (6) CKD (chronic kidney disease) stage 3, GFR 30-59 ml/min Is this a current diagnosis for this admission?: Yes Plan: IV Vancomycin dosage was appropriately adjusted for her CKD. (7) Obstructive sleep apnea of adult Is this a current diagnosis for this admission?: Yes (8) Mixed anxiety and depressive disorder Is this a current diagnosis for this admission?: Yes (9) Peripheral neuropathy Qualifiers: Peripheral neuropathy type: polyneuropathy, unspecified Qualified Code(s): G62.9 - Polyneuropathy, unspecified Is this a current diagnosis for this admission?: Yes (10) Morbid obesity with BMI of 45.0-49.9, adult Is this a current diagnosis for this admission?: Yes - Time Time Spent with patient: 25-34 minutes Level of Care: IMCU Medications reviewed and adjusted accordingly: Yes Anticipated discharge: Home with Homehealth Within: within 72 hours - Inpatient Certification Based on my medical assessment, after consideration of the patient's comor bidities, presenting symptoms, or acuity I expect that the services needed warrant INPATIENT care.: Yes I certify that my determination is in accordance with my understanding of Medicare's requirements for reasonable and necessary INPATIENT services [42 CFR 412.3e].: Yes Medical Necessity: Significant Comorbidiites Make Outpatient Treatment Too Risky, Need Close Monitoring Due to Risk of Patient Decompensation, Need For IV Fluids, Need For Continuous Telemetry Monitoring, Need for IV Antibiotics, Risk of Complication if Not Cared For in Hospital, Risk of Diagnosis Which Will Require Inpatient Eval/Care/Monitoring 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 Follow up on blood culture if no growth in 5 days, I will consider transition to oral antibiotic coverage and discharge home on CAM boot for ambulation.
[2019-05-10 19:46] LABS: ANION GAP 10 (5-19); BLOOD UREA NITROGEN 25 mg/dL (7-20); CALCIUM 9.3 mg/dL (8.4-10.2); CARBON DIOXIDE 28 mmol/L (22-30); CHLORIDE 103 mmol/L (98-107); GLUCOSE 160 mg/dL (75-110); POTASSIUM 4.5 mmol/L (3.6-5.0)
[2019-05-10] MEDS ORDERED: VANCOMYCIN HCL 1,500 MG in DEXTROSE 5%-WATER 250 ML IV SCH (22:00)
[2019-05-10] MEDS: ATORVASTATIN CALCIUM 80 MG TABLET PO SCH (22:25)
[2019-05-10] MEDS: DOCUSATE SODIUM 100 MG CAPSULE PO SCH (22:25)
[2019-05-10] MEDS: METOPROLOL SUCCINATE 50 MG TAB.SR.24H PO SCH (22:26)
[2019-05-10] MEDS: TRAZODONE HCL 50 MG TABLET PO SCH (22:26)
[2019-05-10 23:36] LABS: ANION GAP 7 (5-19); BLOOD UREA NITROGEN 24 mg/dL (7-20); CALCIUM 9.4 mg/dL (8.4-10.2); CARBON DIOXIDE 29 mmol/L (22-30); CHLORIDE 104 mmol/L (98-107); GLUCOSE 110 mg/dL (75-110); POTASSIUM 4.3 mmol/L (3.6-5.0)
[2019-05-11] MEDS: OXYCODONE-ACETAMINOPHEN 5-325 MG TABLET PO PRN ×4 (01:19→15:52)
[2019-05-11 03:38] LABS: ANION GAP 6 (5-19); BLOOD UREA NITROGEN 24 mg/dL (7-20); CALCIUM 9.6 mg/dL (8.4-10.2); CARBON DIOXIDE 32 mmol/L (22-30); CHLORIDE 103 mmol/L (98-107); GLUCOSE 109 mg/dL (75-110)
[2019-05-11] MEDS: PANTOPRAZOLE SODIUM 40 MG TABLET.DR PO SCH (06:04)
[2019-05-11] MEDS: GABAPENTIN 300 MG CAPSULE PO SCH ×2 (06:04→13:14)
[2019-05-11] MEDS: AZTREONAM 1 GM in DEXTROSE 5%-WATER 50 ML IV SCH ×2 (06:05→13:14)
[2019-05-11] MEDS: HYDRALAZINE HCL 25 MG TABLET PO SCH ×2 (06:05→13:17)
[2019-05-11] MEDS: INSULIN LISPRO 100 UNIT/ML 3 ML VIAL SUBCUT SCH ×6 (07:32→17:37)
[2019-05-11 08:11] LABS: ANION GAP 7 (5-19); BLOOD UREA NITROGEN 24 mg/dL (7-20); CALCIUM 9.2 mg/dL (8.4-10.2); CARBON DIOXIDE 32 mmol/L (22-30); CHLORIDE 101 mmol/L (98-107); GLUCOSE 116 mg/dL (75-110); POTASSIUM 4.4 mmol/L (3.6-5.0)
[2019-05-11] MEDS: DILTIAZEM HCL 120 MG CAP.SR.24H PO SCH (08:56)
[2019-05-11] MEDS: FLUOXETINE HCL 20 MG CAPSULE PO SCH (08:56)
[2019-05-11] MEDS: FAMOTIDINE 20 MG TABLET PO SCH (08:56)
[2019-05-11] MEDS: ASPIRIN 325 MG TABLET, ENT COATED PO SCH (08:56)
[2019-05-11] MEDS: ISOSORBIDE MONONITRATE 30 MG TAB.ER.24H PO SCH (08:57)
[2019-05-11] MEDS: MULTIVITAMIN TABLET PO SCH (08:57)
[2019-05-11] MEDS: FUROSEMIDE 40 MG TABLET PO SCH (08:57)
[2019-05-11] MEDS: LIDOCAINE 5% (700 MG) TRANSDERMAL ADH..PATCH TP SCH (09:01)
[2019-05-11] MEDS: FERROUS SULFATE 325 MG TABLET PO SCH (09:02)
[2019-05-11] MEDS: ENOXAPARIN SODIUM INJ 30 MG/0.3 ML DISP.SYRIN SUBCUT SCH (09:02)
[2019-05-11] MEDS: RANOLAZINE 500 MG TAB.SR.12H PO SCH (09:02)
[2019-05-11] MEDS: NORMAL SALINE 1000 ML 1,000 ML IV PRN (09:14)
[2019-05-11] MEDS: OXYCODONE HCL IR 5 MG TABLET PO PRN (11:18)
[2019-05-11 12:03] LABS: ANION GAP 9 (5-19); BLOOD UREA NITROGEN 26 mg/dL (7-20); CALCIUM 9.5 mg/dL (8.4-10.2); CARBON DIOXIDE 30 mmol/L (22-30); CHLORIDE 99 mmol/L (98-107); GLUCOSE 162 mg/dL (75-110); POTASSIUM 4.3 mmol/L (3.6-5.0)
[2019-05-11 15:19] LABS: ANION GAP 11 (5-19); BLOOD UREA NITROGEN 25 mg/dL (7-20); CALCIUM 9.4 mg/dL (8.4-10.2); CARBON DIOXIDE 29 mmol/L (22-30); CHLORIDE 99 mmol/L (98-107); GLUCOSE 185 mg/dL (75-110); POTASSIUM 4.5 mmol/L (3.6-5.0)
--- NOTE | 2019-05-11 16:47 | PDOC DISCHARGE SUMMARY ---
Impression - Admit/DC Date/PCP Admission Date/Primary Care Provider: 05/06/19 18:23 AMBAR LOPEZ Discharge Date: 05/11/19 - Discharge Diagnosis (1) Cellulitis of left foot Is this a current diagnosis for this admission?: Yes (2) Lisfranc fracture Is this a current diagnosis for this admission?: Yes (3) Diabetes mellitus type 2 in obese Is this a current diagnosis for this admission?: Yes (4) Hypertension Is this a current diagnosis for this admission?: Yes (5) Hyperlipidemia Is this a current diagnosis for this admission?: Yes (6) CKD (chronic kidney disease) stage 3, GFR 30-59 ml/min Is this a current diagnosis for this admission?: Yes (7) Obstructive sleep apnea of adult Is this a current diagnosis for this admission?: Yes (8) Mixed anxiety and depressive disorder Is this a current diagnosis for this admission?: Yes (9) Peripheral neuropathy Is this a current diagnosis for this admission?: Yes (10) Morbid obesity with BMI of 45.0-49.9, adult Is this a current diagnosis for this admission?: Yes - Additional Information Resuscitation Status: Full Code Referrals: AMBAR LOPEZ MD [Primary Care Provider] - 05/15/19 10:00 am (Need referral to podoatrist surgeon for further evaluation and management of left foot linfranc fracture.) Home Medications: Alprazolam [Xanax 0.5 mg Tablet] 0.5 mg PO DAILYP PRN 05/07/19 Aspirin [Ecotrin 325 mg EC Tablet] 325 mg PO QAM 05/07/19 Brexpiprazole [Rexulti] 2 mg PO QHS 05/07/19 Calcitriol [Rocaltrol] 0.25 mcg PO MOWEFR 05/07/19 Dexlansoprazole [Dexilant 60 mg Capsule] 60 mg PO QAM 05/07/19 Diltiazem HCl [Cardizem Cd 120 mg Capsule] 120 mg PO QAM 05/07/19 Docusate Sodium [Colace 100 mg Capsule] 200 mg PO QHS 05/07/19 Ferrous Sulfate [Feosol 325 mg Tablet] 325 mg PO BID 05/07/19 Fluoxetine HCl [Prozac] 80 mg PO QAM 05/07/19 Furosemide [Lasix 40 mg Tablet] 40 mg PO QAM 05/07/19 Gabapentin [Neurontin] 600 mg PO Q8 05/07/19 Hydralazine HCl [Apresoline 25 mg Tablet] 25 mg PO Q8 05/07/19 Icosapent Ethyl [Vascepa] 2 gm PO BID 05/07/19 Insulin Degludec [Tresiba Flextouch U-200] 120 units SQ QPM 05/07/19 Insulin Lispro [Humalog Kwikpen U-100] 10 units SQ MEALS 05/07/19 Isosorbide Mononitrate [Imdur 30 mg Tablet.er] 30 mg PO QAM 05/07/19 Lidocaine [Lidoderm 5% (700 mg) Transdermal Patch] 1 patch TD DAILY 05/07/19 Metoprolol Succinate [Toprol XL 100 mg Tablet] 100 mg PO QHS 05/07/19 Multivitamin [Multiple Vitamins] 1 tab PO QAM 05/07/19 Nitroglycerin [Nitrostat] 0.3 mg SL Q5MP PRN 05/07/19 Oxycodone HCl/Acetaminophen [Percocet 7.5-325 mg Tablet] 1 tab PO Q6HP PRN 05/07/19 Prucalopride Succinate [Motegrity] 2 mg PO DAILY 05/07/19 Ranitidine HCl [Zantac] 150 mg PO QAM 05/07/19 Ranolazine [Ranexa 500 mg Tab.sr] 500 mg PO BID 05/07/19 Rosuvastatin Calcium [Crestor] 40 mg PO DAILY 05/07/19 Tizanidine HCl [Zanaflex] 2 mg PO DAILYP PRN 05/07/19 Trazodone HCl [Desyrel] 100 mg PO QHS 05/07/19 History of Present Illiness History of Present Illness: JESU ORR is a 58 year old female patient known to my practice who presented to the ED with continue left foot pain and worsening swelling. Patient denied any recent trauma, fall or instrumentation. She was diagnosed with questionable fracture affecting same foot, treated with walking boot. She was seen in the office for redness to the left foot with associated swelling and redness of the left foot. She was diagnosed as case of cellulitis and started on Keflex therapy. She reported compliance with the antibiotic usage. There was concern about her left foot X ray that suggested tarsometatarsal fracture with referral to electrical equipment assembler for further evaluation. She reported worsening swelling, redness, and pain in the left foot since her evaluation in the office. Her initial evaluation ion the ED was remarkable for concern about left foot cellulitis and her left foot X ray that suggested linfranc fracture. She was advised hospitalization for further evaluation and management. Her morbidities are as listed below. Hospital Course Hospital Course: She was admitted for left foot cellulitis and linfranc injury and fracture. She was managed with IV Aztreonam and Vancomycin. Her blood culture was no growth x 5 days. Her left foot erythema did improved significantly with elevation. She was seen in consultation by Dr. Rodgers, orthopedic surgeon with recommendation for electrical equipment assembler referral. Patient expressed wish for different electrical equipment assembler other than Dr Puentes. She has been able to ambulate with use of CAM boot while in the hospital. she will be discharged home with the boot and I did emphasized compliance with usage until her consultation with electrical equipment assembler. She will follow up in the office as instructed upon discharge. Physical Exam Vital Signs: Temp Pulse Resp BP Pulse Ox 97.7 F 61 18 116/67 92 05/11/19 12:27 05/11/19 14:00 05/11/19 12:27 05/11/19 12:27 05/11/19 12:27 Intake & Output 05/10/19 05/11/19 05/12/19 06:59 06:59 06:59 Intake Total 4355 2381 730 Output Total 4950 3600 800 Balance -595 -1219 -70 Weight 138.8 kg 139.6 kg General appearance: PRESENT: no acute distress, morbidly obese Head exam: PRESENT: atraumatic, normocephalic Eye exam: PRESENT: conjunctiva pink. ABSENT: pallor, scleral icterus Ear exam: PRESENT: normal external ear exam Mouth exam: PRESENT: moist Respiratory exam: PRESENT: clear to auscultation tarsha, decreased breath sounds - at lung bases Cardiovascular exam: PRESENT: RRR. ABSENT: diastolic murmur, rubs, systolic murmur GI/Abdominal exam: PRESENT: normal bowel sounds, soft. ABSENT: distended, guarding, mass, organomegaly, rebound, tenderness Extremities exam: PRESENT: minimal left foot pedal edema with resolving erythema. Musculoskeletal exam: PRESENT: improved tenderness to palpation of left foot, deformity - with right hallux amputation, foot and ankle joint Neurological exam: PRESENT: alert, awake, oriented to person, oriented to place, oriented to time, oriented to situation, CN II-XII grossly intact. ABSENT: motor sensory deficit Psychiatric exam: PRESENT: appropriate affect, normal mood. ABSENT: homicidal ideation, suicidal ideation Skin exam: PRESENT: dry, erythema - improved over dorsum of right foot, warm Results Laboratory Results: WBC 10.4 10^3/uL (4.0-10.5) 05/09/19 02:56 RBC 3.90 10^6/uL (3.72-5.28) 05/09/19 02:56 Hgb 10.5 g/dL (12.0-15.5) L 05/09/19 02:56 Hct 32.8 % (36.0-47.0) L 05/09/19 02:56 MCV 84 fl (80-97) 05/09/19 02:56 MCH 27.0 pg (27.0-33.4) 05/09/19 02:56 MCHC 32.0 g/dL (32.0-36.0) 05/09/19 02:56 RDW 14.6 % (11.5-14.0) H 05/09/19 02:56 Plt Count 291 10^3/uL (150-450) 05/09/19 02:56 Lymph % (Auto) 31.0 % (13-45) 05/09/19 02:56 Sargent % (Auto) 6.7 % (3-13) 05/09/19 02:56 Eos % (Auto) 5.3 % (0-6) 05/09/19 02:56 Baso % (Auto) 0.9 % (0-2) 05/09/19 02:56 Absolute Neuts (auto) 5.8 10^3/uL (1.7-8.2) 05/09/19 02:56 Absolute Lymphs (auto) 3.2 10^3/uL (0.5-4.7) 05/09/19 02:56 Absolute Monos (auto) 0.7 10^3/uL (0.1-1.4) 05/09/19 02:56 Absolute Eos (auto) 0.6 10^3/uL (0.0-0.6) 05/09/19 02:56 Absolute Basos (auto) 0.1 10^3/uL (0.0-0.2) 05/09/19 02:56 Seg Neutrophils % 56.1 % (42-78) 05/09/19 02:56 PT 13.6 SEC (11.4-15.4) 05/06/19 15:28 INR 1.04 05/06/19 15:28 APTT 30.4 SEC (23.5-35.8) 05/06/19 15:28 Carbonic Acid 1.64 mmol/L (1.05-1.35) H 05/06/19 19:55 HCO3/H2CO3 Ratio 20:1 05/06/19 19:55 ABG pH 7.40 (7.35-7.45) 05/06/19 19:55 ABG pCO2 54.4 mmHg (35-45) H 05/06/19 19:55 ABG pO2 62.8 mmHg (80-100) L 05/06/19 19:55 ABG HCO3 33.0 mmol/L (20-24) H 05/06/19 19:55 ABG Total CO2 34.7 mmol/L (21-25) H 05/06/19 19:55 ABG O2 Saturation 91.7 % (94-98) L 05/06/19 19:55 ABG Base Excess 6.9 mmol/L 05/06/19 19:55 VBG pH 7.30 (7.30-7.42) 05/06/19 16:32 VBG pCO2 74.4 mmHg (35-63) H* 05/06/19 16:32 VBG HCO3 36.0 mmol/L (20-32) H 05/06/19 16:32 VBG Base Excess 7.2 mmol/L 05/06/19 16:32 FiO2 ROOM AIR 05/06/19 19:55 Sodium 138.9 mmol/L (137-145) 05/11/19 14:42 Potassium 4.5 mmol/L (3.6-5.0) 05/11/19 14:42 Chloride 99 mmol/L (98-107) 05/11/19 14:42 Carbon Dioxide 29 mmol/L (22-30) 05/11/19 14:42 Anion Gap 11 (5-19) 05/11/19 14:42 BUN 25 mg/dL (7-20) H 05/11/19 14:42 Creatinine 2.02 mg/dL (0.52-1.25) H 05/11/19 14:42 Est GFR ( Amer) 31 (>60) L 05/11/19 14:42 Est GFR (Non-Af Amer) Cancelled 05/06/19 15:28 Est GFR (MDRD) Non-Af 25 (>60) L 05/11/19 14:42 Glucose 185 mg/dL (75-110) H 05/11/19 14:42 POC Glucose 175 mg/dL (70-110) H 05/11/19 12:21 Hemoglobin A1c % 11.7 % (4.7-6.0) H 05/07/19 06:45 Lactic Acid 1.1 mmol/L (0.7-2.1) 05/06/19 18:45 Calcium 9.4 mg/dL (8.4-10.2) 05/11/19 14:42 Phosphorus 4.4 mg/dL (2.5-4.5) 05/06/19 15:28 Magnesium 2.0 mg/dL (1.6-2.3) 05/06/19 15:28 Total Bilirubin 0.4 mg/dL (0.2-1.3) 05/09/19 02:56 Direct Bilirubin 0.1 mg/dL (0.0-0.4) 05/09/19 02:56 Neonat Total Bilirubin Not Reportable 05/09/19 02:56 Neonat Direct Bilirubin Not Reportable 05/09/19 02:56 Neonat Indirect Bili Not Reportable 05/09/19 02:56 AST 24 U/L (14-36) 05/09/19 02:56 ALT 19 U/L (<35) 05/09/19 02:56 Alkaline Phosphatase 69 U/L (38-126) 05/09/19 02:56 Ammonia < 8.7 umol/L (9-33) L 05/06/19 19:50 Creatine Kinase 96 U/L (30-135) 05/07/19 06:00 CK-MB (CK-2) 1.32 ng/mL (<4.55) 05/07/19 06:45 Troponin I < 0.012 ng/mL 05/07/19 06:45 NT-Pro-B Natriuret Pep 520 pg/mL (<125) H 05/06/19 19:50 Total Protein 6.6 g/dL (6.3-8.2) 05/09/19 02:56 Albumin 3.4 g/dL (3.5-5.0) L 05/09/19 02:56 Triglycerides 111 mg/dL (<150) 05/07/19 06:00 Cholesterol 101.65 mg/dL (0-200) 05/07/19 06:00 LDL Cholesterol Direct 42 mg/dL (<100) 05/07/19 06:00 VLDL Cholesterol 22.0 mg/dL (10-31) 05/07/19 06:00 HDL Cholesterol 37 mg/dL (>40) L 05/07/19 06:00 Amylase 52 U/L (30-110) 05/06/19 15:28 Lipase 74.4 U/L (23-300) 05/06/19 15:28 EGFR Cancelled 05/06/19 15:28 TSH 2.37 uIU/mL (0.47-4.68) 05/06/19 15:28 Free T4 1.18 ng/dL (0.78-2.19) 05/06/19 15:28 Urine Color STRAW 05/08/19 15:15 Urine Appearance CLEAR 05/08/19 15:15 Urine pH 6.0 (5.0-9.0) 05/08/19 15:15 Ur Specific [place] 1.006 05/08/19 15:15 Urine Protein NEGATIVE mg/dL (NEGATIVE) 05/08/19 15:15 Urine Glucose (UA) NEGATIVE mg/dL (NEGATIVE) 05/08/19 15:15 Urine Ketones NEGATIVE mg/dL (NEGATIVE) 05/08/19 15:15 Urine Blood NEGATIVE (NEGATIVE) 05/08/19 15:15 Urine Nitrite NEGATIVE (NEGATIVE) 05/08/19 15:15 Urine Bilirubin NEGATIVE (NEGATIVE) 05/08/19 15:15 Urine Urobilinogen NEGATIVE mg/dL (<2.0) 05/08/19 15:15 Ur Leukocyte Esterase NEGATIVE (NEGATIVE) 05/08/19 15:15 Urine WBC (Auto) 0 /HPF 05/08/19 15:15 Urine RBC (Auto) 0 /HPF 05/08/19 15:15 Urine Bacteria (Auto) TRACE /HPF 05/06/19 16:29 Squamous Epi Cells Auto <1 /HPF 05/06/19 16:29 Urine Mucus (Auto) RARE /LPF 05/08/19 15:15 Urine Ascorbic Acid NEGATIVE (NEGATIVE) 05/08/19 15:15 Time Trough Drawn 1022 05/10/19 10:22 Vancomycin Trough 19.6 ug/mL (5.0-20.0) 05/10/19 10:22 Urine Opiates Screen UNCONFIRMED POSITIVE 05/06/19 16:29 Urine Methadone Screen NEGATIVE 05/06/19 16:29 Ur Barbiturates Screen NEGATIVE 05/06/19 16:29 Ur Phencyclidine Scrn NEGATIVE 05/06/19 16:29 Ur Amphetamines Screen NEGATIVE 05/06/19 16:29 U Benzodiazepines Scrn NEGATIVE 05/06/19 16:29 Urine Cocaine Screen NEGATIVE 05/06/19 16:29 U Marijuana (THC) Screen UNCONFIRMED POSITIVE 05/06/19 16:29 05/06/19 05/06/19 05/06/19 15:28 15:28 19:50 CK-MB (CK-2) 1.88 Troponin I < 0.012 NT-Pro-B Natriuret Pep 492 H 520 H 05/07/19 05/07/19 00:50 06:45 CK-MB (CK-2) 1.31 1.32 Troponin I < 0.012 < 0.012 NT-Pro-B Natriuret Pep Impressions: Foot X-Ray 05/06/19 14:56 IMPRESSION: Diffuse midfoot dislocation at the tarsal metatarsal level. Diffuse Lisfranc injury. Metatarsals displaced laterally and superiorly with respect to the tarsal bones. Plan Health Concerns: Compliance with CAM boot usage. Worsening stability of left foot and ankle joint with increase risk of fall. Plan of Treatment: Referral to electrical equipment assembler upon outpatient follow up in the office. Goals: Maintain functional level in view of her charcot joint Time Spent: Greater than 30 Minutes Stroke Is this a Stroke Patient?: No Acute Heart Failure - Is this a Heart Failure Patient?: No
[2019-05-11 17:03] VITALS: BP 137/70
== END 2019-05-11 17:33 | disposition home health service (06) | DRG 638 ==
LOC: ER 14:42 → EH 18:23 → 3W 20:09
PROVIDERS: ADMIT Internal Medicine; ATTEND Internal Medicine Geriatric Medicine
PROC: 5A09457 Assistance with Respiratory Ventilation, 24-96 Consecutive Hours, Continuous Positive Airway Pressure (ICD-10-PCS; principal; 2019-05-06)
DX: E11.00 Type 2 diabetes mellitus with hyperosmolarity without nonketotic hyperglycemic-hyperosmolar coma (NKHHC) (principal); L03.116 Cellulitis of left lower limb; Z68.42 Body mass index [BMI] 45.0-49.9, adult; E78.5 Hyperlipidemia, unspecified; G47.33 Obstructive sleep apnea (adult) (pediatric); E11.22 Type 2 diabetes mellitus with diabetic chronic kidney disease; F41.8 Other specified anxiety disorders; E11.42 Type 2 diabetes mellitus with diabetic polyneuropathy; E66.01 Morbid (severe) obesity due to excess calories; K21.9 Gastro-esophageal reflux disease without esophagitis; I25.10 Atherosclerotic heart disease of native coronary artery without angina pectoris; F32.9 Major depressive disorder, single episode, unspecified; E11.610 Type 2 diabetes mellitus with diabetic neuropathic arthropathy; E78.00 Pure hypercholesterolemia, unspecified; N18.3 Chronic kidney disease, stage 3 (moderate); I12.9 Hypertensive chronic kidney disease with stage 1 through stage 4 chronic kidney disease, or unspecified chronic kidney disease; S93.325A Dislocation of tarsometatarsal joint of left foot, initial encounter; I25.2 Old myocardial infarction; Z79.82 Long term (current) use of aspirin; Z79.899 Other long term (current) drug therapy; Z79.891 Long term (current) use of opiate analgesic; X58.XXXA Exposure to other specified factors, initial encounter; Z90.5 Acquired absence of kidney; Z95.5 Presence of coronary angioplasty implant and graft; Z89.412 Acquired absence of left great toe; Z87.891 Personal history of nicotine dependence; Z79.4 Long term (current) use of insulin; Z88.3 Allergy status to other anti-infective agents; Z88.0 Allergy status to penicillin; Z86.73 Personal history of transient ischemic attack (TIA), and cerebral infarction without residual deficits; Z85.528 Personal history of other malignant neoplasm of kidney
CPT/HCPCS: 36415; 80048; 80053; 80061; 80076; 80202; 80307; 81001; 82140; 82150; 82550; 82553; 82803; 82962; 83036; 83605; 83690; 83735; 83880; 84100; 84439; 84443; 84484; 85025; 85610; 85730; 87040; 87086; 93971; 94660; 96365; 96375; 96376; 99285; J1650; J1815; J2405; J3010; J3370; J3490; J7030; J7060; J7120; L4386

== ENCOUNTER → 2019-05-22 | Outpatient (CLI) | payer MEDICARE, MEDICAID ==
[2019-05-22 15:12] LABS: ABSOLUTE BASOPHILS # (AUTO) 0.1 10^3/uL (0.0-0.2); ABSOLUTE EOSINOPHILS # (AUTO) 0.4 10^3/uL (0.0-0.6); ABSOLUTE LYMPHOCYTES (AUTO) 2.7 10^3/uL (0.5-4.7); ABSOLUTE MONOCYTES (AUTO) 0.7 10^3/uL (0.1-1.4); ABSOLUTE NEUT (AUTO) 7.9 10^3/uL (1.7-8.2); BASOPHILS % (AUTO) 0.8 % (0-2); EOSINOPHILS % (AUTO) 3.5 % (0-6); HEMATOCRIT 31.8 % (36.0-47.0); HEMOGLOBIN 10.5 g/dL (12.0-15.5); LYMPHOCYTES % (AUTO) 23.1 % (13-45); MEAN CORPUSCULAR HEMOGLOBIN 27.9 pg (27.0-33.4); MEAN CORPUSCULAR HGB CONC 33.2 g/dL (32.0-36.0); MEAN CORPUSCULAR VOLUME 84 fl (80-97); MONOCYTES % (AUTO) 5.7 % (3-13); PLATELET COUNT 299 10^3/uL (150-450); RED BLOOD COUNT 3.78 10^6/uL (3.72-5.28); SEGMENTED NEUTROPHILS % (AUTO) 66.9 % (42-78); TOTAL CELLS COUNTED % (AUTO) 100 %; WHITE BLOOD COUNT 11.8 10^3/uL (4.0-10.5)
[2019-05-22 15:19] LABS: APPEARANCE,URINE CLEAR; BILIRUBIN,URINE NEGATIVE (NEGATIVE); COLOR,URINE YELLOW; GLUCOSE, URINE NEGATIVE (NEGATIVE); KETONES,URINE NEGATIVE (NEGATIVE); LEUKOCYTE ESTERASE,URINE SMALL (NEGATIVE); NITRITE,URINE NEGATIVE (NEGATIVE); PROTEIN,URINE NEGATIVE (NEGATIVE); URINE SPECIFIC GRAVITY 1.008; UROBILINOGEN,URINE NEGATIVE mg/dL (<2.0)
[2019-05-22 15:31] LABS: ANION GAP 12 (5-19); BLOOD UREA NITROGEN 19 mg/dL (7-20); CALCIUM 9.2 mg/dL (8.4-10.2); CARBON DIOXIDE 27 mmol/L (22-30); CHLORIDE 103 mmol/L (98-107); GLUCOSE 155 mg/dL (75-110); PHOSPHORUS 3.6 mg/dL (2.5-4.5); POTASSIUM 4.7 mmol/L (3.6-5.0)
== END ==
LOC: LAB 14:40
PROVIDERS: ATTEND Internal Medicine Nephrology
DX: I13.0 Hypertensive heart and chronic kidney disease with heart failure and stage 1 through stage 4 chronic kidney disease, or unspecified chronic kidney disease (principal); I50.9 Heart failure, unspecified; N18.3 Chronic kidney disease, stage 3 (moderate); E11.22 Type 2 diabetes mellitus with diabetic chronic kidney disease; D63.1 Anemia in chronic kidney disease; E87.5 Hyperkalemia
CPT/HCPCS: 36415; 80048; 81001; 82306; 83970; 84100; 84443; 85025

== ENCOUNTER 2019-05-25 16:58 | Emergency (ER) | payer MEDICARE, MEDICAID ==
[2019-05-25] MEDS ORDERED: ONDANSETRON 4 MG TAB.RAPDIS PO ONE (18:27)
--- NOTE | 2019-05-25 18:28 | ER Document Report ---
ED Medical Screen (RME) - General Chief Complaint: Flank Pain Stated Complaint: FEVER,ABDOMINAL PAIN,URINATION PAIN Time Seen by Provider: 05/25/19 18:21 Primary Care Provider: AMBAR LOPEZ MD [Primary Care Provider] - Follow up as needed Notes: Patient is a 58-year-old female with a history of diabetes, chronic kidney disease who presents to the emergency department with a chief complaint of flank pain. Patient reports she was seen by Dr. Kiran earlier this week and diagnosed with a urinary tract infection. Patient reports she has been on Cipro for the past 3 days without relief of symptoms. Patient reports left flank pain that radiates into her left groin. Patient reports subjective fever for the past 24 hours and chills. Patient reports nausea without vomiting. Patient reports she has had her right kidney removed due to cancer. Patient was told to come here by Dr. Kiran's office for an evaluation and possible pyelonephritis treatment. TRAVEL OUTSIDE OF THE [place] IN LAST 30 DAYS: No - Related Data Allergies/Adverse Reactions: sulfamethoxazole [From Bactrim] Allergy (Severe, Verified 05/25/19 18:21) rash trimethoprim [From Bactrim] Allergy (Severe, Verified 05/25/19 18:21) rash Penicillins Allergy (Unknown, Verified 05/25/19 18:21) Home Medications: cipro Past Medical History - Social History Chew tobacco use (# tins/day): No Frequency of alcohol use: None Drug Abuse: None - Past Medical History Cardiac Medical History: Reports: Hx Congestive Heart Failure, Hx Coronary Artery Disease, Hx Heart Attack - x2, STENTS, Hx Hypercholesterolemia, Hx Hypertension Denies: Hx DVT Pulmonary Medical History: Reports: Hx Pneumonia Denies: Hx Asthma, Hx Bronchitis, Hx COPD Neurological Medical History: Reports: Hx Cerebrovascular Accident - NO RESIDUAL. Denies: Hx Seizures Endocrine Medical History: Reports: Hx Diabetes Mellitus Type 1, Hx Diabetes Mellitus Type 2 Renal/ Medical History: Reports: Hx End Stage Renal Disease. Denies: Hx Peritoneal Dialysis Malignancy Medical History: Reports: Hx Renal (Kidney) Cancer - s/p right nephrectomy September, GI Medical History: Reports: Hx Gastroesophageal Reflux Disease, Hx Hiatal Hernia. Denies: Hx Crohn's Disease, Hx Hepatitis, Hx Ulcer, Hx Ulcerative Colitis Musculoskeltal Medical History: Reports Hx Arthritis - gout Skin Medical History: Denies Hx Psoriasis Psychiatric Medical History: Reports: Hx Depression Traumatic Medical History: Denies: Hx Traumatic Brain Injury Infectious Medical History: Denies: Hx C-Diff, Hx Hepatitis Past Surgical History: Reports: Hx Cardiac Catheterization - stent placement, Hx Cardiac Surgery - stent placement, Hx Cholecystectomy, Hx Coronary Stent - 2013, Hx Kidney (Renal Surgery) - R removal, Hx Orthopedic Surgery - left hand, left great toe amputation, Other - right nephrectomy for ca. Denies: Hx Hysterectomy, Hx Mastectomy, Hx Open Heart Surgery, Hx Pacemaker - Immunizations Hx Diphtheria, Pertussis, Tetanus Vaccination: Yes Physical Exam - Vital signs Vitals: Temp Pulse Resp BP Pulse Ox 98 F 67 28 H 136/58 H 94 05/25/19 17:15 05/25/19 17:15 05/25/19 17:15 05/25/19 17:15 05/25/19 17:15 Course - Re-evaluation Re-evalutation: 05/25/19 18:28 I have greeted and performed a rapid initial assessment of this patient. A comp rehensive ED assessment and evaluation of the patient, analysis of test results and completion of the medical decision making process will be conducted by additional ED providers. - Vital Signs Vital signs: Temp Pulse Resp BP Pulse Ox 98 F 67 28 H 136/58 H 94 05/25/19 17:15 05/25/19 17:15 05/25/19 17:15 05/25/19 17:15 05/25/19 17:15 Doctor's Discharge - Discharge Referrals: AMBAR LOPEZ MD [Primary Care Provider] - Follow up as needed
[2019-05-25 19:23] LABS: ABSOLUTE BASOPHILS # (AUTO) 0.1 10^3/uL (0.0-0.2); ABSOLUTE EOSINOPHILS # (AUTO) 0.6 10^3/uL (0.0-0.6); ABSOLUTE LYMPHOCYTES (AUTO) 2.6 10^3/uL (0.5-4.7); ABSOLUTE MONOCYTES (AUTO) 0.6 10^3/uL (0.1-1.4); ABSOLUTE NEUT (AUTO) 7.4 10^3/uL (1.7-8.2); BASOPHILS % (AUTO) 0.8 % (0-2); EOSINOPHILS % (AUTO) 5.6 % (0-6); HEMATOCRIT 31.6 % (36.0-47.0); HEMOGLOBIN 10.5 g/dL (12.0-15.5); LYMPHOCYTES % (AUTO) 22.7 % (13-45); MEAN CORPUSCULAR HEMOGLOBIN 28.3 pg (27.0-33.4); MEAN CORPUSCULAR HGB CONC 33.1 g/dL (32.0-36.0); MEAN CORPUSCULAR VOLUME 85 fl (80-97); MONOCYTES % (AUTO) 5.6 % (3-13); PLATELET COUNT 268 10^3/uL (150-450); RED BLOOD COUNT 3.71 10^6/uL (3.72-5.28); RED CELL DISTRIBUTION WIDTH 15.4 % (11.5-14.0); SEGMENTED NEUTROPHILS % (AUTO) 65.3 % (42-78); TOTAL CELLS COUNTED % (AUTO) 100 %; WHITE BLOOD COUNT 11.3 10^3/uL (4.0-10.5)
[2019-05-25 19:25] LABS: APPEARANCE,URINE CLEAR; BILIRUBIN,URINE NEGATIVE (NEGATIVE); COLOR,URINE YELLOW; GLUCOSE, URINE NEGATIVE (NEGATIVE); KETONES,URINE NEGATIVE (NEGATIVE); PROTEIN,URINE NEGATIVE (NEGATIVE); URINE SPECIFIC GRAVITY 1.012; UROBILINOGEN,URINE NEGATIVE mg/dL (<2.0)
[2019-05-25 19:47] LABS: ALBUMIN 3.7 g/dL (3.5-5.0); ALKALINE PHOSPHATASE 81 U/L (38-126); ANION GAP 11 (5-19); ASPARTATE AMINO TRANSFERASE 22 U/L (14-36); BILIRUBIN,DIRECT 0.2 mg/dL (0.0-0.4); BILIRUBIN,TOTAL 0.3 mg/dL (0.2-1.3); BLOOD UREA NITROGEN 18 mg/dL (7-20); CARBON DIOXIDE 27 mmol/L (22-30); CHLORIDE 100 mmol/L (98-107); GLUCOSE 297 mg/dL (75-110); POTASSIUM 4.7 mmol/L (3.6-5.0); TOTAL PROTEIN 7.1 g/dL (6.3-8.2)
[2019-05-25] MEDS ORDERED: OXYCODONE-ACETAMINOPHEN 5-325 MG TABLET PO ONE (20:09)
--- NOTE | 2019-05-25 20:16 | ER Document Report ---
ED General - General Chief Complaint: Flank Pain Stated Complaint: FEVER,ABDOMINAL PAIN,URINATION PAIN Time Seen by Provider: 05/25/19 18:21 Primary Care Provider: AMBAR LOPEZ MD [ACTIVE STAFF] - Follow up as needed TRAVEL OUTSIDE OF THE [place] IN LAST 30 DAYS: No - HPI Notes: Patient is a 58-year-old female with a history of renal cancer, status post right-sided nephrectomy, who presents to the emergency department for evaluation of left flank pain. She states is been going on for the last several days, worse over the last 24 hours. She was seen by Dr. Kiran's office, diagnosed with UTI. She was started on Cipro. She states she has had continued pain and is concerned that she has a kidney infection. She states she has had fevers at home, but when asked she said her highest temperature was 98.9 F. She is had nausea but no emesis. She is still urinating. She states her pain is sharp and stabbing, worsened by movement, nothing seems to make it better. - Related Data Allergies/Adverse Reactions: sulfamethoxazole [From Bactrim] Allergy (Severe, Verified 05/25/19 18:21) rash trimethoprim [From Bactrim] Allergy (Severe, Verified 05/25/19 18:21) rash Penicillins Allergy (Unknown, Verified 05/25/19 18:21) Home Medications: cipro, remainder of medications reviewed, please see chart Past Medical History - General Information source: Patient - Social History Smoking Status: Former Smoker Chew tobacco use (# tins/day): No Frequency of alcohol use: None Drug Abuse: None Family History: None, Hypertension Patient has suicidal ideation: No Patient has homicidal ideation: No - Past Medical History Cardiac Medical History: Reports: Hx Congestive Heart Failure, Hx Coronary Artery Disease, Hx Heart Attack - x2, STENTS, Hx Hypercholesterolemia, Hx Hypertension Denies: Hx DVT Pulmonary Medical History: Reports: Hx Pneumonia Denies: Hx Asthma, Hx Bronchitis, Hx COPD Neurological Medical History: Reports: Hx Cerebrovascular Accident - NO RESIDUAL. Denies: Hx Seizures Endocrine Medical History: Reports: Hx Diabetes Mellitus Type 1, Hx Diabetes Mellitus Type 2 Renal/ Medical History: Reports: Other - Chronic kidney disease. Denies: Hx Peritoneal Dialysis Malignancy Medical History: Reports: Hx Renal (Kidney) Cancer - s/p right nephrectomy September, GI Medical History: Reports: Hx Gastroesophageal Reflux Disease, Hx Hiatal Hernia. Denies: Hx Crohn's Disease, Hx Hepatitis, Hx Ulcer, Hx Ulcerative Colitis Musculoskeletal Medical History: Reports Hx Arthritis - gout Skin Medical History: Denies Hx Psoriasis Psychiatric Medical History: Reports: Hx Depression Traumatic Medical History: Denies: Hx Traumatic Brain Injury Infectious Medical History: Denies: Hx C-Diff, Hx Hepatitis Past Surgical History: Reports: Hx Cardiac Catheterization - stent placement, Hx Cardiac Surgery - stent placement, Hx Cholecystectomy, Hx Coronary Stent - 2013, Hx Kidney (Renal Surgery) - R removal, Hx Orthopedic Surgery - left hand, left great toe amputation, Other - right nephrectomy for ca. Denies: Hx Hysterectomy, Hx Mastectomy, Hx Open Heart Surgery, Hx Pacemaker - Immunizations Hx Diphtheria, Pertussis, Tetanus Vaccination: Yes Hx Pneumococcal Vaccination: 07/11/13 Review of Systems - Review of Systems Constitutional: See HPI EENT: No symptoms reported Cardiovascular: No symptoms reported Respiratory: No symptoms reported Gastrointestinal: No symptoms reported Genitourinary: Burning Female Genitourinary: No symptoms reported Musculoskeletal: No symptoms reported Hematologic/Lymphatic: No symptoms reported Physical Exam - Vital signs Vitals: Temp Pulse Resp BP Pulse Ox 98 F 67 28 H 136/58 H 94 05/25/19 17:15 05/25/19 17:15 05/25/19 17:15 05/25/19 17:15 05/25/19 17:15 - Notes Notes: This is an obese 58-year-old female who appears her stated age, no acute distress. Head is normocephalic and appears atraumatic, pupils are equal round, reactive to light. Oral mucosa is moist. Heart is regular rate and rhythm, lungs are clear to auscultation bilaterally. Abdomen is obese, soft, nontender with normoactive bowel sounds. Examination of the spine is no midline tenderness or step-off. She does have some left-sided CVA tenderness, without overlying skin changes, even just the lightest of palpation. Extremities without cyanosis or clubbing. Skin is warm and dry. Peripheral pulses are equal. Course - Re-evaluation Re-evalutation: 05/25/19 20:13 Patient is a 58-year-old female presents emergency department for evaluation. She had laboratory investigations as ordered through triage. Her labs showed a very mildly elevated white blood cell count, and her renal function seems to be stable. Urinalysis feels reveal any signs of significant infection. At this point my suspicion is that this may in fact be musculoskeletal. She is encouraged to continue the Cipro as previously directed by Dr. Kiran, in case there was urinary tract infection at that point and it is incompletely treated. The patient voices understanding to this. I did treat her here with 1 Percocet. I will have her follow-up with primary care on Tuesday, she is to return to the ED with worsening. 05/25/19 20:35 I was notified by nursing that the patient fell off of the bed in the room. I went in to evaluate the patient. She fell onto her left shoulder. She states she may have hit her head, but denies any loss of consciousness. No neck or back pain. On physical exam she has no midline tenderness or step-off of the spine. No paraspinal musculature tenderness appreciated. No obvious deformity of the left shoulder. She has no clavicular tenderness to palpation. She is tender to palpation over the anterior humeral head. No distal humerus tenderness, no olecranon tenderness. Neurovascular intact distally to the left upper extremity. X-ray of left shoulder was ordered, we will continue to monitor. 05/25/19 22:16 I went back into reevaluate the patient after evaluating her shoulder film and getting the read for possible inferior subluxation. Upon entering the room, the patient was flexing her arms at the elbows, with arms adducted, scooting herself up in her wheelchair. She had no apparent discomfort. I reevaluated her shou lder. She stated it felt somewhat sore, but had full active and passive range of motion without significant pain. This patient is already on crutches secondary to Lisfranc fracture. I do not have a strong suspicion for a significant humeral head pathology at this time, especially given her indepe ndent use of this joint. I explained findings to the patient, and my hesitancy to place her into shoulder immobilizer given the limitations to her mobility this would imposed. She voiced understanding to this. At any rate I will refer her on to orthopedics for close follow-up. She is amenable to this plan. She is to return to the ED with worsening. - Vital Signs Vital signs: Temp Pulse Resp BP Pulse Ox 97.3 F 72 20 166/77 H 94 05/25/19 20:32 05/25/19 20:32 05/25/19 20:32 05/25/19 20:32 05/25/19 20:32 - Laboratory Result Diagrams: 05/25/19 19:02 05/25/19 19:02 Laboratory results interpreted by me: 05/25/19 05/25/19 19:02 19:02 WBC 11.3 H RBC 3.71 L Hgb 10.5 L Hct 31.6 L RDW 15.4 H Creatinine 1.85 H Est GFR ( Amer) 34 L Est GFR (MDRD) Non-Af 28 L Glucose 297 H - Diagnostic Test Radiology reviewed: Image reviewed, Reports reviewed Radiology results interpreted by me: 05/25/19 22:16 Shoulder X-Ray 05/25/19 20:35 IMPRESSION: 1. Partial inferior subluxation of the humeral head. Consider Grashey view to better evaluate glenohumeral joint. 2. No definite fractures. Cannot exclude a mild impaction fracture of the humeral head Discharge - Discharge Clinical Impression: Left flank pain, Contusion of left shoulder, Inferior subluxation of left shoulder Condition: Stable Disposition: HOME, SELF-CARE Instructions: Flank Pain ([facility]) Additional Instructions: No clear cause was found for your flank pain today. Please continue the Cipro as directed. Follow-up with Dr. Kiran and primary care on Tuesday. If you develop fever greater than 100.4 degrees, vomiting, increased pain, decreased urinary output, or any other new or concerning symptoms, please return immediately to the emergency department for evaluation. Regarding your shoulder, there is a possibility of a small fracture or subluxation of this joint. Clinically this seems unlikely. Follow-up with orthopedics, our on-call orthopedic surgeon as listed below. Return to the ED with worsening. Referrals: AMBAR LOPEZ MD [ACTIVE STAFF] - Follow up as needed JANNETH BAI MD [ACTIVE PROVISIONAL STAFF] - Follow up as needed
--- NOTE | 2019-05-25 21:49 | RADIOLOGY REPORT (SQ) ---
EXAM DESCRIPTION: Left shoulder RadLex: XR SHOULDER 2 OR MORE VIEWS Views: 3 CLINICAL HISTORY: 58 years Female, fall COMPARISON: . 04/15/2017 FINDINGS: There is no anterior/posterior dislocation. However, there is partial inferior subluxation of the humeral head. No acute fracture. Scapula is intact. No a.c. subluxation. Clavicle is intact. Adjacent ribs are intact. No hyperdense foreign bodies. IMPRESSION: 1. Partial inferior subluxation of the humeral head. Consider Grashey view to better evaluate glenohumeral joint. 2. No definite fractures. Cannot exclude a mild impaction fracture of the humeral head
[2019-05-25 22:36] VITALS: BP 154/89
== END 2019-05-25 22:35 | disposition home or self-care (01) ==
LOC: ER 16:58
DX: N39.0 Urinary tract infection, site not specified (principal); S43.032A Inferior subluxation of left humerus, initial encounter; S40.012A Contusion of left shoulder, initial encounter; W06.XXXA Fall from bed, initial encounter; Y92.239 Unspecified place in hospital as the place of occurrence of the external cause; D72.829 Elevated white blood cell count, unspecified; R10.9 Unspecified abdominal pain; R11.0 Nausea; I25.10 Atherosclerotic heart disease of native coronary artery without angina pectoris; I10 Essential (primary) hypertension; E11.9 Type 2 diabetes mellitus without complications; Z90.5 Acquired absence of kidney; Z85.528 Personal history of other malignant neoplasm of kidney; Z87.891 Personal history of nicotine dependence; Z95.5 Presence of coronary angioplasty implant and graft; Z88.1 Allergy status to other antibiotic agents; Z88.0 Allergy status to penicillin
CPT/HCPCS: 36415; 85025; 80053; 81001; 73030; A9270 ×2; 99284; S0119

== ENCOUNTER 2019-06-22 09:00 | Day surgery (SDC) | payer MEDICARE, MEDICAID ==
[~2019-06-22 09:00] MED LIST changes: +LIDOCAINE 2% INJ-PF (20 MG/ML) 10 ML AMPUL ONE; -ONABOTULINUMTOXINA INJ/PF 100 UNIT SDV IM ONE; +ONABOTULINUMTOXINA INJ/PF 100 UNIT SDV IM PRN; +PROPOFOL INJ 200 MG/20 ML VIAL IV ONE
[2019-06-22 10:50] VITALS: BP 135/77
--- NOTE | 2019-06-22 11:45 | Operative Report ---
Operative Report DATE OF SURGERY: 06/22/19 Operative Report: The risks benefits and alternatives of the procedure explained to the patient in detail and informed consent is obtained.A GIF Olympus video scope was inserted into the patient's mouth and hypopharynx ,the esophagus is identified intubated and insufflated ,the scope was then advanced through the esophagus stomach and duodenum ,retroflexion maneuver is done ,the esophagus stomach and first and second portions of the duodenum examined. PREOPERATIVE DIAGNOSIS: Nausea vomiting, gastroparesis POSTOPERATIVE DIAGNOSIS: Gastritis status post biopsy rule out Helicobacter pylori. Gastroparesis status post Botox injection 100 units in 4 mL's; 1 mL per quadrant injection at the gastric outlet OPERATION: EGD with submucosal injection. EGD with biopsy SURGEON: SHENG PIMENTEL ANESTHESIA: LMAC TISSUE REMOVED OR ALTERED: As noted above. COMPLICATIONS: None. ESTIMATED BLOOD LOSS: None. INTRAOPERATIVE FINDINGS: As noted above. PROCEDURE: Patient tolerated the procedure well. No immediate postprocedure complications are noted. Patient is discharged in good condition. Discharge date 06/22/2019. Discharge diet: Regular. Discharge activity: Regular. 2 to 3-week follow-up to discuss findings. Patient is instructed to call the office or proceed to the emergency room should there be any further problems or questions. Wait on the pathology.
== END 2019-06-24 11:20 | disposition home or self-care (01) ==
LOC: END 09:00
PROVIDERS: ATTEND Internal Medicine Gastroenterology
DX: K31.84 Gastroparesis (principal); K29.50 Unspecified chronic gastritis without bleeding; I25.2 Old myocardial infarction; Z86.73 Personal history of transient ischemic attack (TIA), and cerebral infarction without residual deficits; E11.22 Type 2 diabetes mellitus with diabetic chronic kidney disease; N18.4 Chronic kidney disease, stage 4 (severe); Z99.2 Dependence on renal dialysis; I50.9 Heart failure, unspecified; R06.02 Shortness of breath; Z88.0 Allergy status to penicillin; E66.9 Obesity, unspecified; Z68.42 Body mass index [BMI] 45.0-49.9, adult; Z13.89 Encounter for screening for other disorder; Z87.891 Personal history of nicotine dependence; Z79.899 Other long term (current) drug therapy; Z79.4 Long term (current) use of insulin
CPT/HCPCS: 43236; 43239; 82962; 88305 ×2; 00731; J2704; J3490; J0585; 731

== ENCOUNTER → 2019-07-16 | Outpatient (CLI) | payer MEDICARE, MEDICAID ==
--- NOTE | 2019-07-16 15:20 | RADIOLOGY REPORT (SQ) ---
EXAM DESCRIPTION: FOOT LEFT 2 VIEWS COMPLETED DATE/TIME: 07/16/2019 3:01 pm REASON FOR STUDY: PAIN IN LEFT FOOT (M79.672) R11.2 NAUSEA WITH VOMITING, UNSPECIFIED R10.11 RIGHT UPPER QUADRANT PAIN COMPARISON: 05/06/2019 NUMBER OF VIEWS: Three views. TECHNIQUE: AP, lateral and oblique radiographic images acquired of the left foot. LIMITATIONS: None. FINDINGS: MINERALIZATION: Markedly decreased from prior. BONES: Postsurgical changes from the distal 1st phalanx amputation. Additional degenerative changes from the tarsal metatarsal dislocation with significant Lisfranc injury and lateral subluxation of al l metatarsals in relation to the distal tarsal row. There is been interval development of increased heterotopic ossification about the midfoot. Scattered additional degenerative changes at the interph alangeal joints. No acute fracture. JOINTS: Subluxation and degenerative changes above. SOFT TISSUES: Soft tissue swelling about the foot. OTHER: No other significant finding. IMPRESSION: 1. Changes of a Charcot joint with significant Lisfranc dislocation and dorsal and late ral subluxation of the metatarsals in relation to the distal tarsal row. Findings are similar to elsa or exam with the exception of increased heterotopic ossification about the midfoot. No additional ac benton bony abnormality identified. 2. Significant progressive decreased osseous mineralization. 3. Diffuse soft tissue swelling about the foot. TECHNICAL DOCUMENTATION: JOB ID: [id number] [employer]- All Rights Reserved Reading location - IP/workstation name: [email or web address]
--- NOTE | 2019-07-16 16:26 | RADIOLOGY REPORT (SQ) ---
EXAM DESCRIPTION: CT ABD/PELVIS WITH IV ONLY COMPLETED DATE/TIME: 07/16/2019 3:43 pm REASON FOR STUDY: EPIGASTRIC PAIN, RUQ PAIN (R10.11) R11.2 NAUSEA WITH VOMITING, UNSPECIFIED R10.11 RIGHT UPPER QUADRANT PAIN COMPARISON: 08/22/2018 TECHNIQUE: CT scan of the abdomen and pelvis performed using helical scanning technique with dynamic intravenous contrast injection. No oral contrast. Images reviewed with lung, soft tissue, and bone windows. Reconstructed coronal and sagittal MPR images reviewed. Delayed images for evaluation of the urinary system also acquired. All images stored on PACS. All CT scanners at this facility use dose modulation, iterative reconstruction, and/or weight based d osing when appropriate to reduce radiation dose to as low as reasonably achievable (ALARA). [facility]: Dose Right [facility]: CareDose [facility]: Dose Right [facility]: Teradose 4D [facility]: NanoInk CONTRAST TYPE AND DOSE: contrast/concentration: Isovue 300.00 mg/ml; Total Contrast Delivered: 100.0 ml; Total Saline Delivered: 72.0 ml RENAL FUNCTION: Creatinine 1.7 RADIATION DOSE: CT Rad equipment meets quality standard of care and radiation dose reduction techniq ues were employed. CTDIvol: 31.7 mGy. DLP: 3527 mGy-cm.. LIMITATIONS: None. FINDINGS: LOWER CHEST: No significant findings. No nodules or infiltrates. LIVER: Normal size. No masses. No dilated ducts. SPLEEN: Normal size. No focal lesions. PANCREAS: No masses. No significant calcifications. No adjacent inflammation or peripancreatic fluid collections. Pancreatic duct not dilated. GALLBLADDER: No identified stones by CT criteria. No inflammatory changes to suggest cholecystitis. ADRENAL GLANDS: No significant masses or asymmetry. RIGHT KIDNEY AND URETER: The right kidney is absent. LEFT KIDNEY AND URETER: No solid masses. No significant calcifications. No hydronephrosis or hydr oureter. AORTA AND VESSELS: No aneurysm. No dissection. Renal arteries, SMA, celiac without stenosis. RETROPERITONEUM: No retroperitoneal adenopathy, hemorrhage or masses. BOWEL AND PERITONEAL CAVITY: Unobstructed bowel is present in a large lateral abdominal wall hernia o n the right. No obvious bowel mass. APPENDIX: Not identified. PELVIS: No mass. No free fluid. Normal bladder. ABDOMINAL WALL: 8 cm wide lateral abdominal wall hernia that contains unobstructed bowel. BONES: No significant or acute findings. OTHER: No other significant finding. IMPRESSION: 8 cm wide right lateral abdominal wall hernia that contains unobstructed bowel. No acut e finding in the abdomen or pelvis. TECHNICAL DOCUMENTATION: JOB ID: [id number] Quality ID # [id number]: Final reports with documentation of one or more dose reduction techniques (e.g., Au tomated exposure control, adjustment of the mA and/or kV according to patient size, use of iterative reconstruction technique) 2010 [employer]- All Rights Reserved Reading location - IP/workstation name: [email or web address]
== END ==
LOC: RAD 14:18
PROVIDERS: ATTEND Internal Medicine Gastroenterology
DX: K43.9 Ventral hernia without obstruction or gangrene (principal); R11.2 Nausea with vomiting, unspecified; R10.11 Right upper quadrant pain; A52.16 Charcot's arthropathy (tabetic); M79.672 Pain in left foot; M79.89 Other specified soft tissue disorders
CPT/HCPCS: 74177; 82565

== ENCOUNTER → 2019-08-13 | Outpatient (CLI) | payer MEDICARE, MEDICAID ==
--- NOTE | 2019-08-13 12:33 | RADIOLOGY REPORT (SQ) ---
EXAM DESCRIPTION: T SPINE AP/LAT COMPLETED DATE/TIME: 08/13/2019 12:13 pm REASON FOR STUDY: PAIN IN THORACIC SPINE (M54.6) K31.84 GASTROPARESIS COMPARISON: None. NUMBER OF VIEWS: Two views. TECHNIQUE: AP and lateral radiographic images acquired of the thoracic spine. LIMITATIONS: Upper thoracic spine excluded by overlying soft tissues. FINDINGS: MINERALIZATION: Normal. ALIGNMENT: Exaggerated thoracic kyphosis. VERTEBRAE: No fracture or bone lesion. Maintained height, normal segmentation. DISCS: Multilevel disc height loss with endplate osteophytosis. HARDWARE: None in the spine. MEDIASTINUM AND SOFT TISSUES: Normal heart size and aortic contour. Aortic atherosclerosis. VISUALIZED LUNG ROBLERO: Clear. OTHER: No other significant finding. IMPRESSION: Upper thoracic spine obscured by overlying soft tissues. Multilevel spondylosis without evidence of acute bony abnormality. TECHNICAL DOCUMENTATION: JOB ID: [id number] [employer]- All Rights Reserved Reading location - IP/workstation name: [email or web address]
--- NOTE | 2019-08-13 14:45 | RADIOLOGY REPORT (SQ) ---
EXAM DESCRIPTION: NM GASTRIC EMPTYING STUDY COMPLETED DATE/TIME: 08/13/2019 2:03 pm REASON FOR STUDY: GASTROPARESIS (K31.84) K31.84 GASTROPARESIS COMPARISON: None. RADIONUCLIDE AND DOSE: 2.16 millicuries Tc-99m Sulfur Colloid. A wide variety of solid foods have been used. The route of agent administration: Oral. TECHNIQUE: 1 minute serial static imaging performed at time of meal, 1 hour, 2 hours, 3 hours, and 4 hours as needed. Once stomach reaches 90% emptying, the test is complete. Image intensity values pl otted with respect to time with linear regression algorithm. LIMITATIONS: None. FINDINGS: Patient was observed for 4 hours. Immediate post meal serves as baseline. Gastric emptying at 30 minutes was 12.8%. Gastric emptying at 60 minutes was 25.7% Gastric emptying at 90 minutes was 38.5% Gastric emptying at 120 minutes was 51.4%. Gastric emptying at 240 minutes was 100%. Normal values: 60 minutes: 30-90% retained. If less than 30%, abnormally rapid emptying. If greater than 90%, delaye d gastric emptying. 120 minutes: <60% retained. If greater than 60%, delayed gastric emptying. 240 minutes: <10% retained. If greater than 10%, delayed gastric emptying. IMPRESSION: 1. NORMAL GASTRIC EMPTYING. TECHNICAL DOCUMENTATION: JOB ID: [id number] [email or web address]- All Rights Reserved rev-11/25 Reading location - IP/workstation name: [email or web address]
== END ==
LOC: RAD 08:02
PROVIDERS: ATTEND Internal Medicine
DX: K31.84 Gastroparesis (principal); M54.6 Pain in thoracic spine; M40.294 Other kyphosis, thoracic region; M47.894 Other spondylosis, thoracic region
CPT/HCPCS: 72070; 78264; A9541

== ENCOUNTER → 2019-08-17 | Outpatient (CLI) | payer MEDICARE, MEDICAID ==
[2019-08-17 10:20] LABS: ABSOLUTE BASOPHILS # (AUTO) 0.1 10^3/uL (0.0-0.2); ABSOLUTE EOSINOPHILS # (AUTO) 0.2 10^3/uL (0.0-0.6); ABSOLUTE LYMPHOCYTES (AUTO) 3.2 10^3/uL (0.5-4.7); ABSOLUTE MONOCYTES (AUTO) 0.6 10^3/uL (0.1-1.4); BASOPHILS % (AUTO) 0.8 % (0-2); EOSINOPHILS % (AUTO) 2.2 % (0-6); HEMATOCRIT 37.9 % (36.0-47.0); HEMOGLOBIN 12.4 g/dL (12.0-15.5); LYMPHOCYTES % (AUTO) 28.7 % (13-45); MEAN CORPUSCULAR HGB CONC 32.7 g/dL (32.0-36.0); MEAN CORPUSCULAR VOLUME 86 fl (80-97); MONOCYTES % (AUTO) 5.2 % (3-13); PLATELET COUNT 256 10^3/uL (150-450); RED BLOOD COUNT 4.42 10^6/uL (3.72-5.28); RED CELL DISTRIBUTION WIDTH 14.5 % (11.5-14.0); SEGMENTED NEUTROPHILS % (AUTO) 63.1 % (42-78); TOTAL CELLS COUNTED % (AUTO) 100 %; WHITE BLOOD COUNT 11.1 10^3/uL (4.0-10.5)
[2019-08-17 10:41] LABS: ALBUMIN 3.9 g/dL (3.5-5.0); ANION GAP 10 (5-19); BLOOD UREA NITROGEN 29 mg/dL (7-20); CALCIUM 9.2 mg/dL (8.4-10.2); CARBON DIOXIDE 30 mmol/L (22-30); CHLORIDE 96 mmol/L (98-107); GLUCOSE 303 mg/dL (75-110); POTASSIUM 4.7 mmol/L (3.6-5.0)
[2019-08-17 10:45] LABS: APPEARANCE,URINE CLEAR; BILIRUBIN,URINE NEGATIVE (NEGATIVE); COLOR,URINE YELLOW; GLUCOSE, URINE >=500 mg/dL (NEGATIVE); KETONES,URINE NEGATIVE (NEGATIVE); LEUKOCYTE ESTERASE,URINE NEGATIVE (NEGATIVE); NITRITE,URINE NEGATIVE (NEGATIVE); PROTEIN,URINE NEGATIVE (NEGATIVE); URINE SPECIFIC GRAVITY 1.006; UROBILINOGEN,URINE NEGATIVE mg/dL (<2.0)
[2019-08-17 10:59] LABS: URINE CREATININE 25.3 mg/dL (15-278); URINE PROTEIN 24.4 mg/dL (<12)
== END ==
LOC: OD 09:13
PROVIDERS: ATTEND Physician Assistant Medical
DX: N18.3 Chronic kidney disease, stage 3 (moderate) (principal); R30.9 Painful micturition, unspecified; R31.9 Hematuria, unspecified
CPT/HCPCS: 36415; 80069; 81001; 82570; 84156; 85025

== ENCOUNTER 2019-10-07 03:43 | Emergency (ER) | payer MEDICARE, MEDICAID ==
[2019-10-07] MEDS ORDERED: MORPHINE SULFATE 10 MG/ML INJ IV ONE ×2 (03:55→05:29)
[2019-10-07] MEDS ORDERED: ONDANSETRON HCL INJ/PF 4 MG/2 ML SDV IV ONE (03:56)
--- NOTE | 2019-10-07 03:57 | ER Document Report ---
ED General - General TRAVEL OUTSIDE OF THE [place] IN LAST 30 DAYS: No <DOMINICK BUSTAMANTE - Last Filed: 10/07/19 07:19> <JEROME CASTILLO Ab - Last Filed: 10/07/19 08:55> - General Chief Complaint: Chest Pain Stated Complaint: CHEST PAIN Time Seen by Provider: 10/07/19 03:47 Primary Care Provider: DAMIAN THOMPSON PA-C [ALLIED HEALTH PROFESSIONAL] - Follow up as needed Notes: Patient is a 59-year-old female that comes to the emergency department by EMS for chief complaint of sharp pain in her left upper abdomen, mid abdomen, mid chest, and coming up into her left chest, shoulder, and back. She states the pain awoke her from sleep about an hour prior to arrival. Patient received 3 sublingual nitroglycerin from EMS and patient personally took 325 mg of aspirin before calling EMS. She does state that the nitroglycerin reduced her pain from 10/10 to 7/10. She states she became very nauseated but did not vomit tonight, she did vomit yesterday however. She has had a normal bowel movement 2 days ago. She denies shortness of breath, fever, cough, injury, or other locations of pain. Past medical history includes [place] with stents in 2012, hypertension, type 2 diabetes, chronic kidney disease, morbid obesity, pancreatitis, cholecystectomy, gastroparesis. She is also on chronic pain management with Percocet and takes torsemide. Her milking machine operator is Dr. Contreras, her freight associate is Dr. Leach. (DOMINICK BUSTAMANTE) - Related Data Allergies/Adverse Reactions: Penicillins Allergy (Severe, Verified 06/19/19 12:44) sulfamethoxazole [From Bactrim] Allergy (Severe, Verified 06/19/19 12:44) rash trimethoprim [From Bactrim] Allergy (Severe, Verified 06/19/19 12:44) rash Past Medical History - General Information source: Patient - Social History Smoking Status: Never Smoker Frequency of alcohol use: None Drug Abuse: None Lives with: Family Family History: None, Hypertension - Past Medical History Cardiac Medical History: Reports: Hx Congestive Heart Failure, Hx Coronary Artery Disease, Hx Heart Attack - x2, STENTS, Hx Hypercholesterolemia, Hx Hypertension Denies: Hx DVT Pulmonary Medical History: Reports: Hx Pneumonia Denies: Hx Asthma, Hx Bronchitis, Hx COPD Neurological Medical History: Reports: Hx Cerebrovascular Accident - NO RESIDUAL. Denies: Hx Seizures Endocrine Medical History: Reports: Hx Diabetes Mellitus Type 2 Renal/ Medical History: Reports: Hx End Stage Renal Disease. Denies: Hx Peritoneal Dialysis Malignancy Medical History: Reports: Hx Renal (Kidney) Cancer - s/p right nephrectomy September, GI Medical History: Reports: Hx Gastroesophageal Reflux Disease, Hx Hiatal Hernia. Denies: Hx Crohn's Disease, Hx Hepatitis, Hx Ulcer, Hx Ulcerative Colitis Musculoskeletal Medical History: Reports Hx Arthritis - gout Skin Medical History: Denies Hx Psoriasis Psychiatric Medical History: Reports: Hx Depression Traumatic Medical History: Denies: Hx Traumatic Brain Injury Infectious Medical History: Denies: Hx C-Diff, Hx Hepatitis Past Surgical History: Reports: Hx Cardiac Catheterization - stent placement, Hx Cardiac Surgery - stent placement, Hx Cholecystectomy, Hx Coronary Stent - 2013, Hx Kidney (Renal Surgery) - R removal, Hx Orthopedic Surgery - left hand, left great toe amputation, Other - right nephrectomy for ca. Denies: Hx Hysterectomy, Hx Mastectomy, Hx Open Heart Surgery, Hx Pacemaker - Immunizations Hx Diphtheria, Pertussis, Tetanus Vaccination: Yes Hx Pneumococcal Vaccination: 07/11/13 <DOMINICK BUSTAMANTE - Last Filed: 10/07/19 07:19> Review of Systems - Review of Systems Constitutional: No symptoms reported EENT: No symptoms reported Cardiovascular: See HPI Respiratory: No symptoms reported Gastrointestinal: See HPI Genitourinary: No symptoms reported Female Genitourinary: No symptoms reported Musculoskeletal: No symptoms reported Skin: No symptoms reported Hematologic/Lymphatic: No symptoms reported Neurological/Psychological: No symptoms reported <DOMINICK BUSTAMANTE - Last Filed: 10/07/19 07:19> Physical Exam <DOMINICK BUSTAMANTE - Last Filed: 10/07/19 07:19> - Vital signs Vitals: Pulse Ox 91 L 10/07/19 03:45 - Notes Notes: GENERAL: Alert, interacts well. HEAD: Normocephalic, atraumatic. EYES: Pupils equal, round, and reactive to light. Extraocular movements intact. ENT: Oral mucosa moist, tongue midline. Oropharynx unremarkable. Airway patent. LUNGS: Clear to auscultation bilaterally, no wheezes, rales, or rhonchi. No respiratory distress. HEART: Regular rate and rhythm. No murmur ABDOMEN: Morbidly obese abdomen, difficult to perform specific abdominal evaluation but patient does have pain in the mid to upper abdomen and especially in the left upper quadrant. No guarding. No overt rigidity. Bowel sounds are difficult to hear EXTREMITIES: Moves all 4 extremities spontaneously. No edema, normal radial and dorsalis pedis pulses bilaterally. No cyanosis. BACK: no cervical, thoracic, lumbar midline tenderness. No saddle anesthesia, normal distal neurovascular exam. Moves all extremities in full range of motion. NEUROLOGICAL: Alert and oriented x3. Normal speech. Cranial nerves II through XII grossly intact. PSYCH: Normal affect, normal mood. SKIN: Warm, dry, normal turgor. No rashes or lesions noted. (DOMINICK BUSTAMANTE) Course - Laboratory Result Diagrams: 10/07/19 03:52 10/07/19 03:52 <DOMINICK BUSTAMANTE - Last Filed: 10/07/19 07:19> - Laboratory Result Diagrams: 10/07/19 03:52 10/07/19 03:52 <JEROME CASTILLO - Last Filed: 10/07/19 08:55> - Re-evaluation Re-evalutation: Patient has a lot of pain in the mid to upper abdomen and left upper quadrant on exam. Pain is also radiating into the chest and into the back reportedly although patient does not appear to be in distress. Vital signs unremarkable. EKG without any noted change from prior. On reevaluation after medication patient states she was starting to feel better but now the pain is starting to come back. Chest x-ray unremarkable, CBC unremarkable, chemistry showing chronic kidney disease, initial troponin ne gative, lipase unremarkable. Because of her returning abdominal pain, reportedly having some swelling of the abdomen, pain on exam with palpation, history of abdominal surgery, vomiting yesterday and continued problems today, decision was made to her perform CT of the abdomen/pelvis with oral contrast to rule out obstruction or other acute etiology. After consideration we will not use IV contrast because of her history of congestive heart failure (limiting fluid we can give her) along with chronic kidney disease with a creatinine of 1.62 (and frequently above 2 on review of previous labs). (DOMINICK BUSTAMANTE) - Vital Signs Vital signs: Temp Pulse Resp BP Pulse Ox 97.8 F 15 119/56 L 100 10/07/19 08:01 10/07/19 07:01 10/07/19 07:02 10/07/19 07:01 - Laboratory Laboratory results interpreted by me: 10/07/19 10/07/19 10/07/19 03:52 03:52 05:45 Hgb 11.7 L Hct 35.0 L RDW 14.8 H Eos % (Auto) 6.2 H Sodium 133.9 L Chloride 94 L Carbon Dioxide 32 H BUN 24 H Creatinine 1.62 H Est GFR ( Amer) 40 L Est GFR (MDRD) Non-Af 33 L Glucose 382 H Urine Glucose (UA) >=500 H - EKG Interpretation by Me Additional EKG results interpreted by me: EKG shows sinus rhythm at a rate of 73, VT interval of 216, QTC 499. LVH noted. No T wave inversions or ST segment changes in consecutive leads. No significant change from prior. (DOMINICK BUSTAMANTE) Discharge <DOMINICK BUSTAMANTE - Last Filed: 10/07/19 07:19> <JEROME CASTILLO - Last Filed: 10/07/19 08:55> - Discharge Clinical Impression: Abdominal pain, left upper quadrant Chest pain Qualifiers: Chest pain type: unspecified Qualified Code(s): R07.9 - Chest pain, unspecified Condition: Stable Disposition: HOME, SELF-CARE Additional Instructions: Continue your prior medications at home follow-up with your milking machine operator and your freight associate outpatient for further evaluation of your symptoms call for appointment Referrals: DAMIAN THOMPSON PA-C [ALLIED HEALTH PROFESSIONAL] - Follow up as needed SHENG CONTRERAS MD [ACTIVE STAFF] - Follow up as needed
[2019-10-07 04:22] LABS: ABSOLUTE BASOPHILS # (AUTO) 0.1 10^3/uL (0.0-0.2); ABSOLUTE EOSINOPHILS # (AUTO) 0.6 10^3/uL (0.0-0.6); ABSOLUTE LYMPHOCYTES (AUTO) 3.3 10^3/uL (0.5-4.7); ABSOLUTE MONOCYTES (AUTO) 0.6 10^3/uL (0.1-1.4); ABSOLUTE NEUT (AUTO) 5.6 10^3/uL (1.7-8.2); EOSINOPHILS % (AUTO) 6.2 % (0-6); HEMOGLOBIN 11.7 g/dL (12.0-15.5); LYMPHOCYTES % (AUTO) 32.2 % (13-45); MEAN CORPUSCULAR HEMOGLOBIN 28.6 pg (27.0-33.4); MEAN CORPUSCULAR HGB CONC 33.6 g/dL (32.0-36.0); MEAN CORPUSCULAR VOLUME 85 fl (80-97); PLATELET COUNT 231 10^3/uL (150-450); RED CELL DISTRIBUTION WIDTH 14.8 % (11.5-14.0); SEGMENTED NEUTROPHILS % (AUTO) 54.6 % (42-78); TOTAL CELLS COUNTED % (AUTO) 100 %; WHITE BLOOD COUNT 10.2 10^3/uL (4.0-10.5)
--- NOTE | 2019-10-07 04:37 | RADIOLOGY REPORT (SQ) ---
Chest one view on 10/07/2019 at 4:09 AM CLINICAL INDICATION: Chest pain COMPARISON: 06/19/2018 FINDINGS: The lungs are clear. There is mild elevation of the right hemidiaphragm. Mild vascular calcification is noted in the aorta. Cardiac, hilar and mediastinal contours are within normal limits. Pulmonary vascularity is within normal limits. No bony abnormality is noted. IMPRESSION: No active disease.
[2019-10-07 04:44] LABS: ALBUMIN 3.7 g/dL (3.5-5.0); ALKALINE PHOSPHATASE 78 U/L (38-126); ANION GAP 8 (5-19); ASPARTATE AMINO TRANSFERASE 26 U/L (14-36); BILIRUBIN,TOTAL 0.3 mg/dL (0.2-1.3); BLOOD UREA NITROGEN 24 mg/dL (7-20); CALCIUM 9.1 mg/dL (8.4-10.2); CARBON DIOXIDE 32 mmol/L (22-30); CHLORIDE 94 mmol/L (98-107); GLUCOSE 382 mg/dL (75-110); POTASSIUM 4.4 mmol/L (3.6-5.0); TOTAL PROTEIN 6.8 g/dL (6.3-8.2)
[2019-10-07] MEDS ORDERED: DIPHENHYDRAMINE HCL 50 MG/ML VIAL IV ONE (05:29)
[2019-10-07 06:27] LABS: APPEARANCE,URINE CLEAR; BILIRUBIN,URINE NEGATIVE (NEGATIVE); COLOR,URINE YELLOW; GLUCOSE, URINE >=500 mg/dL (NEGATIVE); KETONES,URINE NEGATIVE (NEGATIVE); LEUKOCYTE ESTERASE,URINE NEGATIVE (NEGATIVE); NITRITE,URINE NEGATIVE (NEGATIVE); PROTEIN,URINE NEGATIVE (NEGATIVE); URINE SPECIFIC GRAVITY 1.008; UROBILINOGEN,URINE NEGATIVE mg/dL (<2.0)
--- NOTE | 2019-10-07 08:15 | ER Document Report ---
Doctor's Note Notes: 10/07/19 08:15 Report received on the patient. She is pending CT at this time, pending second troponin at this time. 10/07/19 08:53 I discussed evaluation results with the patient she is requesting pain and nausea medicine but she is not vomiting in the room and does not appear to be in significant discomfort. Second troponin is negative. CT does not show an obstructive issue or other concerning abnormalities. Patient is on Percocet at home, will give Regchristy Percocet here, follow-up with her GI physician
--- NOTE | 2019-10-07 08:44 | RADIOLOGY REPORT (SQ) ---
EXAM DESCRIPTION: CT ABD/PELVIS ORAL ONLY IMAGES COMPLETED DATE/TIME: 10/07/2019 8:20 am REASON FOR STUDY: abd swelling, sharp upper abd pain, N/V COMPARISON: 2018 TECHNIQUE: CT scan of the abdomen and pelvis performed with oral contrast and no intravenous contras t. Images reviewed with lung, soft tissue, and bone windows. Reconstructed coronal and sagittal MPR i mages reviewed. All images stored on PACS. All CT scanners at this facility use dose modulation, iterative reconstruction, and/or weight based d osing when appropriate to reduce radiation dose to as low as reasonably achievable (ALARA). [facility]: Dose Right [facility]: CareDose [facility]: Dose Right [facility]: Teradose 4D [facility]: Smart Rally Fit RADIATION DOSE: CT Rad equipment meets quality standard of care and radiation dose reduction techniq ues were employed. CTDIvol: 19.2 mGy. DLP: 1126 mGy-cm.mGy. LIMITATIONS: None. FINDINGS: LOWER CHEST: No significant findings. No nodules or infiltrates. NON-CONTRASTED LIVER, SPLEEN, ADRENALS: Evaluation limited by lack of IV contrast. No identified sign ificant masses. PANCREAS: No masses. No peripancreatic inflammatory changes. GALLBLADDER: Surgically absent. RIGHT KIDNEY AND URETER: Surgically absent. LEFT KIDNEY AND URETER: No solid masses. No significant calcification. No hydronephrosis or hydrouret er. AORTA AND RETROPERITONEUM: No aneurysm. No retroperitoneal masses or adenopathy. BOWEL AND PERITONEAL CAVITY: No obvious masses or inflammatory changes. No free fluid. APPENDIX: Not visualized. PELVIS, BLADDER, AND ABDOMINAL WALL: No pelvic pathology. Bladder normal. Broad right lateral herni a contains fat, small bowel and cecum and proximal ascending colon. No fluid or inflammatory changes or imaging suggestion of incarceration. Chronic appearance. BONES: Spondylosis. No fracture or worrisome bone lesion. OTHER: No other significant finding. IMPRESSION: 1. No acute abdominopelvic abnormality. 2. Chronic changes include status post right nephrectomy, status post cholecystectomy and broad right lateral hernia containing numerous loops of bowel. TECHNICAL DOCUMENTATION: JOB ID: [id number] Quality ID # [id number]: Final reports with documentation of one or more dose reduction techniques (e.g., Au tomated exposure control, adjustment of the mA and/or kV according to patient size, use of iterative reconstruction technique) 2010 [employer]- All Rights Reserved Reading location - IP/workstation name: [email or web address]
--- NOTE | 2019-10-07 08:52 | EKG REPORT ---
SEVERITY:- ABNORMAL ECG - SINUS RHYTHM FIRST DEGREE AV BLOCK LEFT VENTRICULAR HYPERTROPHY BORDERLINE PROLONGED QT INTERVAL LAFB POOR R WAVE PROGRESSION ANTERIOR LEADS ? DUE TO LEAD PLACEMENT : Confirmed by: Willy Douglass MD 07-Oct-2019 08:52:08
[2019-10-07] MEDS ORDERED: METOCLOPRAMIDE HCL INJ/PF 10 MG/2 ML SDV IV ONE (08:53)
[2019-10-07] MEDS ORDERED: OXYCODONE-ACETAMINOPHEN 5-325 MG TABLET PO ONE (08:53)
[2019-10-07 09:35] VITALS: BP 141/73
== END 2019-10-07 09:28 | disposition home or self-care (01) ==
LOC: ER 03:43
DX: E11.43 Type 2 diabetes mellitus with diabetic autonomic (poly)neuropathy (principal); K31.84 Gastroparesis; R07.9 Chest pain, unspecified; R10.12 Left upper quadrant pain; R10.9 Unspecified abdominal pain; M25.519 Pain in unspecified shoulder; M54.9 Dorsalgia, unspecified; R11.0 Nausea; I13.0 Hypertensive heart and chronic kidney disease with heart failure and stage 1 through stage 4 chronic kidney disease, or unspecified chronic kidney disease; E11.22 Type 2 diabetes mellitus with diabetic chronic kidney disease; N18.9 Chronic kidney disease, unspecified; I50.9 Heart failure, unspecified; I25.2 Old myocardial infarction; Z95.5 Presence of coronary angioplasty implant and graft; Z90.49 Acquired absence of other specified parts of digestive tract; Z90.5 Acquired absence of kidney; Z85.528 Personal history of other malignant neoplasm of kidney; Z88.0 Allergy status to penicillin; Z88.1 Allergy status to other antibiotic agents; Z87.19 Personal history of other diseases of the digestive system; Z79.891 Long term (current) use of opiate analgesic
CPT/HCPCS: 93005; 96376; 99285; 96374; 96375; 36415; 83690; 85025; 80053; 81001; 84484; 71045; 74176; 93010; J1200; J2765; J2270; A9270; J2405

== ENCOUNTER → 2019-10-08 | Outpatient (CLI) | payer MEDICARE, MEDICAID ==
--- NOTE | 2019-10-08 12:36 | RADIOLOGY REPORT (SQ) ---
EXAM DESCRIPTION: VENOUS UNILATERAL LOWER IMAGES COMPLETED DATE/TIME: 10/08/2019 12:18 pm REASON FOR STUDY: LLE PAIN/SWELLING I82.402 ACUTE EMBOLISM AND THOMBOS UNSP DEEP VEINS OF L LOW COMPARISON: None. TECHNIQUE: Dynamic and static briggs scale and color images acquired of the left leg venous system. Se lected spectral images acquired with additional compression and augmentation maneuvers. The contralat eral common femoral vein and saphenofemoral junction were also imaged. Images stored on PACS. LIMITATIONS: None. FINDINGS: COMMON FEMORAL: Normal phasicity, compression and augmentation. No visualized echogenic ma terial on briggs scale. No defects on color images. FEMORAL: Normal compression and augmentation. No visualized echogenic material on briggs scale. No defe cts on color images. POPLITEAL: Normal compression, augmentation. No visualized echogenic material on briggs scale. No defec ts on color images. CALF VESSELS: Normal compression, augmentation. No visualized echogenic material on briggs scale. No de fects on color images. GSV and SSV: Normal compression, augmentation. No visualized echogenic material on briggs scale. No def ects on color images. ANY DEEP VENOUS INSUFFICIENCY: Not evaluated. ANY EVIDENCE OF POPLITEAL CYST: No. OTHER: No other significant finding. CONTRALATERAL COMMON FEMORAL VEIN AND SAPHENOFEMORAL JUNCTION: Normal phasicity, compression and augmentation. No visualized echogenic material on briggs scale. No de fects on color images. IMPRESSION: NO EVIDENCE DVT OR SVT IN THE LEFT LEG. TECHNICAL DOCUMENTATION: JOB ID: [id number] 2010 [employer]- All Rights Reserved Reading location - IP/workstation name: [email or web address]
== END ==
LOC: SP 10:12
PROVIDERS: ATTEND Podiatrist Foot & Ankle Surgery
DX: I82.492 Acute embolism and thrombosis of other specified deep vein of left lower extremity (principal)
CPT/HCPCS: 93971

== ENCOUNTER 2019-10-20 12:00 | Emergency (ER) | payer MEDICARE, MEDICAID ==
[2019-10-20 12:55] LABS: ABSOLUTE EOSINOPHILS # (AUTO) 0.5 10^3/uL (0.0-0.6); ABSOLUTE LYMPHOCYTES (AUTO) 2.5 10^3/uL (0.5-4.7); ABSOLUTE MONOCYTES (AUTO) 0.5 10^3/uL (0.1-1.4); ABSOLUTE NEUT (AUTO) 8.8 10^3/uL (1.7-8.2); BASOPHILS % (AUTO) 0.3 % (0-2); HEMATOCRIT 37.8 % (36.0-47.0); HEMOGLOBIN 12.7 g/dL (12.0-15.5); LYMPHOCYTES % (AUTO) 20.3 % (13-45); MEAN CORPUSCULAR HEMOGLOBIN 28.8 pg (27.0-33.4); MEAN CORPUSCULAR HGB CONC 33.7 g/dL (32.0-36.0); MEAN CORPUSCULAR VOLUME 86 fl (80-97); MONOCYTES % (AUTO) 4.2 % (3-13); PLATELET COUNT 267 10^3/uL (150-450); RED BLOOD COUNT 4.42 10^6/uL (3.72-5.28); RED CELL DISTRIBUTION WIDTH 14.6 % (11.5-14.0); SEGMENTED NEUTROPHILS % (AUTO) 71.2 % (42-78); TOTAL CELLS COUNTED % (AUTO) 100 %; WHITE BLOOD COUNT 12.4 10^3/uL (4.0-10.5)
[2019-10-20] MEDS ORDERED: ONDANSETRON HCL INJ/PF 4 MG/2 ML SDV IV ONE (13:05)
[2019-10-20] MEDS ORDERED: NORMAL SALINE 500 ML IV ONE (13:05)
[2019-10-20 13:10] LABS: A TYPE INFLUENZA AG NEGATIVE (NEGATIVE); B INFLUENZA AG NEGATIVE (NEGATIVE)
--- NOTE | 2019-10-20 13:11 | ER Document Report ---
ED General - General Chief Complaint: Shortness Of Breath Stated Complaint: SHORTNESS OF BREATH Time Seen by Provider: 10/20/19 12:20 Primary Care Provider: EMILIANO DELGADO MD [Primary Care Provider] - Follow up as needed TRAVEL OUTSIDE OF THE [place] IN LAST 30 DAYS: No - HPI Notes: Chief complaint: Nausea, vomiting, diarrhea generalized weakness and shortness of breath 59-year-old female with multiple chronic medical problems followed by Dr. Delgado presenting with symptoms as noted above for approximately 1 week. Denies fever or chills. Denies blood with stools. No known exposure to other ill individuals. Patient saw her GI doctor who is been treating her for chronic diabetic gastric paresis yesterday and was treated symptomatically for her diarrhea but says she is no better. She reports 6 or 7 watery stools today. She is vomited twice. She feels like she is getting progressively weaker. States that she checked her blood sugars at home and these are in the 200s. She denies any sputum production. She does have a history of CAD with previous stent placement. She denies any chest pain. Patient denies any recent treatment with antibiotics. - Related Data Allergies/Adverse Reactions: Penicillins Allergy (Severe, Verified 10/20/19 12:07) sulfamethoxazole [From Bactrim] Allergy (Severe, Verified 10/20/19 12:07) rash trimethoprim [From Bactrim] Allergy (Severe, Verified 10/20/19 12:07) rash Home Medications: Aspirin, calcitrol, dexilant, iron, metropolol, isosorbide, hy dralizine, hydralazine, gabapentin. Past Medical History - General Information source: Patient - Social History Smoking Status: Former Smoker Lives with: Other - Lives with sister Family History: None, Hypertension Patient has suicidal ideation: No Patient has homicidal ideation: No - Past Medical History Cardiac Medical History: Reports: Hx Congestive Heart Failure, Hx Coronary Artery Disease, Hx Heart Attack - x2, STENTS, Hx Hypercholesterolemia, Hx Hypertension Denies: Hx DVT Pulmonary Medical History: Reports: Hx Pneumonia Denies: Hx Asthma, Hx Bronchitis, Hx COPD Neurological Medical History: Reports: Hx Cerebrovascular Accident - NO RESIDUAL. Denies: Hx Seizures Endocrine Medical History: Reports: Hx Diabetes Mellitus Type 1, Hx Diabetes Mellitus Type 2 Renal/ Medical History: Reports: Hx End Stage Renal Disease. Denies: Hx Peritoneal Dialysis Malignancy Medical History: Reports: Hx Renal (Kidney) Cancer - s/p right nephrectomy September, GI Medical History: Reports: Hx Gastroesophageal Reflux Disease, Hx Hiatal Hernia. Denies: Hx Crohn's Disease, Hx Hepatitis, Hx Ulcer, Hx Ulcerative Colitis Musculoskeletal Medical History: Reports Hx Arthritis - gout Skin Medical History: Denies Hx Psoriasis Psychiatric Medical History: Reports: Hx Depression Traumatic Medical History: Denies: Hx Traumatic Brain Injury Infectious Medical History: Denies: Hx C-Diff, Hx Hepatitis Past Surgical History: Reports: Hx Cardiac Catheterization - stent placement, Hx Cardiac Surgery - stent placement, Hx Cholecystectomy, Hx Coronary Stent - 2013, Hx Kidney (Renal Surgery) - R removal, Hx Orthopedic Surgery - left hand, left great toe amputation, Other - right nephrectomy for ca. Denies: Hx Hysterectomy, Hx Mastectomy, Hx Open Heart Surgery, Hx Pacemaker - Immunizations Hx Diphtheria, Pertussis, Tetanus Vaccination: Yes Hx Pneumococcal Vaccination: 07/11/13 Review of Systems - Review of Systems Notes: Constitutional: Negative for fever. HENT: Negative for sore throat. Eyes: Negative for visual changes. Cardiovascular: Negative for chest pain. Respiratory: As per HPI. Gastrointestinal: As per HPI. Genitourinary: Negative for dysuria. Musculoskeletal: Negative for back pain. Skin: Negative for rash. Neurological: Negative for headaches, focal weakness or numbness. 10 point ROS negative except as marked above and in HPI. Physical Exam - Vital signs Vitals: Temp Pulse Resp BP Pulse Ox 98.7 F 98 18 154/92 H 92 10/20/19 12:07 10/20/19 12:07 10/20/19 12:07 10/20/19 12:07 10/20/19 12:07 - Notes Notes: Remote Exam Using Telemedicine System due to potential COVID 19 virus risk GENERAL: Obese female approximately stated age who appears dehydrated. SKIN: no rashes. HEAD: Normocephalic atraumatic. EYES: PERRL. EOMI. Conjunctivae and sclerae clear. NOSE: CLEAR. MOUTH: Tacky oral mucosa. Good dentition. No stridor or edema. No drooling. NECK: Full ROM. No visible masses or thyromegaly. No JVD. BACK: Symmetrical. CHEST: Respirations unlabored. Expands symmetrical. ABDOMEN: Obese. Non-distended. GENITALIA: Deferred. EXTREMITIES: No edema. NEUROLOGICAL: GCS 15. Alert and oriented x3. Fluent speech. Cranial nerves II through XII intact. Motor and cerebellar normal. PSYCHIATRIC: Appropriate affect. Course - Re-evaluation Re-evalutation: 10/20/19 13:11 Labs requested include urinalysis, C. difficile toxin assay, CBC, comprehensive metabolic profile and BNP. We also screening for influenza a and B. I reviewed the chest x-ray and it shows mild cardiomegaly with no vascular congestion no pleural effusion and no focal infiltrates. IV Zofran. IV normal saline. - Vital Signs Vital signs: Temp Pulse Resp BP Pulse Ox 98.7 F 86 18 140/77 H 99 10/20/19 18:00 10/20/19 18:00 10/20/19 18:00 10/20/19 18:00 10/20/19 18:00 - Laboratory Result Diagrams: 10/20/19 12:19 10/20/19 12:19 Laboratory results interpreted by me: 10/20/19 10/20/19 10/20/19 12:19 12:19 17:13 WBC 12.4 H RDW 14.6 H Absolute Neuts (auto) 8.8 H Sodium 130.4 L Chloride 93 L BUN 26 H Creatinine 1.60 H Est GFR ( Amer) 40 L Est GFR (MDRD) Non-Af 33 L Glucose 403 H* POC Glucose 285 H Discharge - Discharge Clinical Impression: Clostridium difficile enterocolitis, Dehydration Diabetes Qualifiers: Diabetes mellitus type: type 2 Diabetes mellitus superintendent terminal insulin use: with retirement use Diabetes mellitus complication status: with hyperglycemia Qualified Code(s): E11.65 - Type 2 diabetes mellitus with hyperglycemia; Z79.4 - rn long term care (current) use of insulin Condition: Stable Disposition: HOME, SELF-CARE Additional Instructions: Increase oral fluids. Take prescribed antibiotic medication. Return here as needed for new or worsening symptoms. Otherwise follow-up with your primary care physician within the next 48 hours. Prescriptions: Metronidazole [Flagyl 500 mg Tablet] 500 mg PO Q6H #40 tablet Referrals: EMILIANO DELGADO MD [Primary Care Provider] - Follow up as needed
[2019-10-20 13:14] LABS: ALBUMIN 3.9 g/dL (3.5-5.0); ALKALINE PHOSPHATASE 91 U/L (38-126); ANION GAP 9 (5-19); ASPARTATE AMINO TRANSFERASE 27 U/L (14-36); BILIRUBIN,DIRECT 0.1 mg/dL (0.0-0.4); BILIRUBIN,TOTAL 0.5 mg/dL (0.2-1.3); BLOOD UREA NITROGEN 26 mg/dL (7-20); CALCIUM 9.2 mg/dL (8.4-10.2); CARBON DIOXIDE 28 mmol/L (22-30); CHLORIDE 93 mmol/L (98-107); POTASSIUM 4.3 mmol/L (3.6-5.0); TOTAL PROTEIN 7.3 g/dL (6.3-8.2)
[2019-10-20 13:23] LABS: GLUCOSE 403 mg/dL (75-110)
--- NOTE | 2019-10-20 13:27 | RADIOLOGY REPORT (SQ) ---
EXAM DESCRIPTION: CHEST SINGLE VIEW IMAGES COMPLETED DATE/TIME: 10/20/2019 1:08 pm REASON FOR STUDY: Shortness of breath COMPARISON: 10/07/2019 NUMBER OF VIEWS: One view. TECHNIQUE: Single frontal radiographic view of the chest acquired. LIMITATIONS: None. FINDINGS: LUNGS AND PLEURA: No opacities, masses or pneumothorax. No pleural effusion. MEDIASTINUM AND HILAR STRUCTURES: No masses. Contour normal. HEART AND VASCULAR STRUCTURES: Heart enlarged without failure. Normal vasculature. BONES: No acute findings. HARDWARE: None in the chest. OTHER: No other significant finding. IMPRESSION: HEART ENLARGED WITHOUT FAILURE. NO OTHER SIGNIFICANT RADIOGRAPHIC FINDING IN THE CHEST. TECHNICAL DOCUMENTATION: JOB ID: [id number] 2010 [employer]- All Rights Reserved Reading location - IP/workstation name: [email or web address]
[2019-10-20] MEDS ORDERED: NORMAL SALINE 1000 ML 1,000 ML IV ONE (15:51)
[2019-10-20 19:07] LABS: C DIFFICILE GDH POSITIVE (NEGATIVE)
[2019-10-20 19:57] VITALS: BP 142/78
--- NOTE | 2019-10-21 22:29 | EKG REPORT ---
SEVERITY:- ABNORMAL ECG - SINUS TACHYCARDIA LEFT AXIS DEVIATION LVH WITH SECONDARY REPOLARIZATION ABNORMALITY BORDERLINE PROLONGED QT INTERVAL : Confirmed by: Randi Nagel MD 21-Oct-2019 22:28:53
== END 2019-10-20 19:55 | disposition home or self-care (01) ==
LOC: ER 12:00
DX: A04.72 Enterocolitis due to Clostridium difficile, not specified as recurrent (principal); E86.0 Dehydration; E11.65 Type 2 diabetes mellitus with hyperglycemia; Z79.4 Long term (current) use of insulin; R11.2 Nausea with vomiting, unspecified; R53.1 Weakness; R06.02 Shortness of breath; E66.9 Obesity, unspecified; K21.9 Gastro-esophageal reflux disease without esophagitis; I25.10 Atherosclerotic heart disease of native coronary artery without angina pectoris; I11.0 Hypertensive heart disease with heart failure; I50.9 Heart failure, unspecified; Z79.82 Long term (current) use of aspirin; Z79.899 Other long term (current) drug therapy; Z95.5 Presence of coronary angioplasty implant and graft; Z90.5 Acquired absence of kidney; Z85.528 Personal history of other malignant neoplasm of kidney; Z87.891 Personal history of nicotine dependence; Z88.0 Allergy status to penicillin; Z88.1 Allergy status to other antibiotic agents
CPT/HCPCS: 93005; 99284; 96361; 96374; 36415; 87045; 87205; 82962; 85025; 80053; 87493 ×2; 87804; 87324; 87449; 83880; 71045; 93010; J2405; J7030; J7040

== ENCOUNTER 2020-01-03 16:11 | Observation (INO) | payer MEDICARE, MEDICAID ==
[2020-01-03] MEDS ORDERED: GLUCAGON,HUMAN RECOMB 1 MG INJ IM PRN (17:00)
[2020-01-03] MEDS ORDERED: DEXTROSE 40% GEL 15 GM TUBE PO PRN (17:00)
[2020-01-03] MEDS ORDERED: DEXTROSE 50%-WATER SYRINGE 25 GM/50 ML DOSE IV PRN (17:00)
[2020-01-03] MEDS ORDERED: DEXTROSE 50%-WATER SYRINGE 12.5 GM/25 ML DOSE IV PRN (17:00)
[2020-01-03] MEDS ORDERED: DEXTROSE 40% GEL 15 GM TUBE X 2 PO PRN (17:00)
[2020-01-03 18:08] LABS: HEMATOCRIT 35.7 % (36.0-47.0); MEAN CORPUSCULAR HEMOGLOBIN 28.8 pg (27.0-33.4); MEAN CORPUSCULAR HGB CONC 33.8 g/dL (32.0-36.0); MEAN CORPUSCULAR VOLUME 85 fl (80-97); PLATELET COUNT 219 10^3/uL (150-450); RED BLOOD COUNT 4.19 10^6/uL (3.72-5.28); RED CELL DISTRIBUTION WIDTH 14.4 % (11.5-14.0); WHITE BLOOD COUNT 10.3 10^3/uL (4.0-10.5)
[2020-01-03 18:52] LABS: FREE T4 (FREE THYROXINE) 1.13 ng/dL (0.78-2.19)
[2020-01-03] MEDS: NORMAL SALINE 1000 ML 1,000 ML IV PRN (19:01)
[2020-01-03 19:06] LABS: THYROID STIMULATING HORMONE 1.07 uIU/mL (0.47-4.68)
--- NOTE | 2020-01-03 20:17 | Progress Note ---
Provider Note Provider Note: patient was on schedule for EGD with Botox as outpatient earlier today due to BS being high, anesthesia cancelled procedure she went to see her primary and was subsequently admitted if BS can be controlled , will be able to do procedure as inpatient keep npo overnight
[2020-01-03] MEDS ORDERED: OXYCODONE HCL IR 5 MG TABLET PO PRN (20:20)
[2020-01-03] MEDS ORDERED: ALPRAZOLAM 0.5 MG TABLET PO PRN (20:20)
[2020-01-03] MEDS ORDERED: (PENDING PHARMACY ID) (Oxycodone Hcl/Acetaminophen [Oxycodone-Acetaminophen 10-325] 1 EACH PO PRN (20:20)
[2020-01-03] MEDS ORDERED: (PENDING PHARMACY ID) (Suvorexant [Belsomra] 15 MG) PO PRN (20:20)
[2020-01-03 20:27] LABS: ALBUMIN 3.7 g/dL (3.5-5.0); ALKALINE PHOSPHATASE 90 U/L (38-126); ANION GAP 9 (5-19); ASPARTATE AMINO TRANSFERASE 26 U/L (14-36); BILIRUBIN,TOTAL 0.3 mg/dL (0.2-1.3); BLOOD UREA NITROGEN 27 mg/dL (7-20); CALCIUM 9.3 mg/dL (8.4-10.2); CARBON DIOXIDE 28 mmol/L (22-30); CHLORIDE 97 mmol/L (98-107); GLUCOSE 366 mg/dL (75-110); POTASSIUM 3.8 mmol/L (3.6-5.0); TOTAL PROTEIN 7.1 g/dL (6.3-8.2)
[2020-01-03] MEDS ORDERED: INSULIN DEGLUDEC 80 UNIT SUBCUT SCH (20:30)
[2020-01-03] MEDS ORDERED: (PENDING PHARMACY ID) (Multivitamin/Iron/Folic Acid [Centrum Adults Tablet] 1 TAB) PO SCH (20:30)
[2020-01-03] MEDS ORDERED: (PENDING PHARMACY ID) (Metoprolol Succinate [Metoprolol Succinate] 100 MG) PO SCH (20:30)
[2020-01-03] MEDS ORDERED: PRUCALOPRIDE SUCCINATE 2 MG PO SCH (20:30)
[2020-01-03] MEDS ORDERED: (PENDING PHARMACY ID) (Rosuvastatin Calcium [Crestor] 40 MG) PO SCH (20:30)
[2020-01-03] MEDS: ATORVASTATIN CALCIUM 80 MG TABLET PO SCH (21:29)
[2020-01-03] MEDS: TRAZODONE HCL 50 MG TABLET PO SCH (21:29)
[2020-01-03] MEDS: GABAPENTIN 300 MG CAPSULE PO SCH (21:29)
[2020-01-03] MEDS: FAMOTIDINE 20 MG TABLET PO SCH (21:30)
[2020-01-03] MEDS: FERROUS SULFATE 325 MG TABLET PO SCH (21:31)
[2020-01-03] MEDS: RANOLAZINE 500 MG TAB.SR.12H PO SCH (21:31)
[2020-01-03] MEDS: HYDRALAZINE HCL 25 MG TABLET PO SCH (21:36)
[2020-01-03] MEDS ORDERED: (PENDING PHARMACY ID) (Brexpiprazole [Rexulti] 3 MG) PO SCH (22:00)
[2020-01-03] MEDS ORDERED: (PENDING PHARMACY ID) (Icosapent Ethyl [Vascepa] 2 GM) PO SCH (22:00)
--- NOTE | 2020-01-03 22:03 | PDOC H&P ---
History of Present Illness Admission Date/PCP: 01/03/20 16:11 EMILIANO DELGADO MD History of Present Illness: JESU ORR is a 59 year old female,She has type 2 diabetes poorly cont rolled she was scheduled for outpatient procedure with GI Dr. Vazquez, she was found to have blood sugar more than 500, the procedure was canceled, she came to the office today I felt it is appropriate to admit her to the hospital for management. The hemoglobin A1c more than 14,Reflection of poor control of diabetes mellitus Past Medical History Cardiac Medical History: Reports: Coronary Artery Disease, Myocardial Infarction - x2, STENTS, Hyperlipidema, Hypertension Pulmonary Medical History: Reports: Pneumonia Endocrine Medical History: Reports: Diabetes Mellitus Type 2, Obesity Renal/ Medical History: Reports: End Stage Renal Disease Malignancy Medical History: Reports: Renal (Kidney) Cancer - s/p right nephrectomy September, GI Medical History: Reports: Gastroesophageal Reflux Disease, Hiatal Hernia Musculoskeltal Medical History: Reports: Arthritis - gout Psychiatric Medical History: Reports: Depression Hematology: Reports: Anemia Denies: Sickle Cell Disease Infectious Medical History: Denies: Clostridium Difficile Past Surgical History Past Surgical History: Reports: Amputation - l big toe, Cardiac Catheterization - stent placement, Cholecystectomy, Coronary Stent - 2013, Orthopedic Surgery - left hand, left great toe amputation, Other - right nephrectomy for ca Social History Smoking Status: Former Smoker Cigarettes Packs Per Day: 2 Number of Years Smokin Last Time Smoked: 2011 Frequency of Alcohol Use: None Hx Recreational Drug Use: No Drugs: None Hx Prescription Drug Abuse: No Family History Family History: None, Hypertension Parental Family History Reviewed: Yes Children Family History Reviewed: Yes Sibling(s) Family History Reviewed.: Yes Medication/Allergy Home Medications: Alprazolam [Xanax 0.5 mg Tablet] 0.5 mg PO DAILYP PRN 05/07/19 Aspirin [Ecotrin 325 mg EC Tablet] 325 mg PO QAM 05/07/19 Calcitriol [Rocaltrol] 0.25 mcg PO MOWEFR 05/07/19 Dexlansoprazole [Dexilant 60 mg Capsule] 60 mg PO QAM 05/07/19 Diltiazem HCl [Cardizem Cd 120 mg Capsule] 120 mg PO QAM 05/07/19 Ferrous Sulfate [Feosol 325 mg Tablet] 325 mg PO BID 05/07/19 Fluoxetine HCl [Prozac] 80 mg PO QAM 05/07/19 Gabapentin [Neurontin] 600 mg PO Q8 05/07/19 Hydralazine HCl [Apresoline 25 mg Tablet] 25 mg PO Q8 05/07/19 Isosorbide Mononitrate [Imdur 30 mg Tablet.er] 30 mg PO QAM 05/07/19 Prucalopride Succinate [Motegrity] 2 mg PO DAILY 05/07/19 Ranolazine [Ranexa 500 mg Tab.sr] 500 mg PO BID 05/07/19 Rosuvastatin Calcium [Crestor] 40 mg PO DAILY 05/07/19 Icosapent Ethyl [Vascepa] 2 gm PO Q12 06/22/19 Metoprolol Succinate 100 mg PO DAILY 06/22/19 Multivitamin/Iron/Folic Acid [Centrum Adults Tablet] 1 tab PO DAILY 06/22/19 Brexpiprazole [Rexulti] 3 mg PO QHS 01/03/20 Famotidine [Pepcid 20 mg Tablet] 20 mg PO DAILY 01/03/20 Insulin Aspart [Novolog Insulin 100 Unit/1 ml 10 ml] 0 unit SUBCUT .SLD SCALE 01/03/20 Insulin Aspart [Novolog Insulin 100 Unit/1 ml 10 ml] 10 unit SUBCUT MEALS 01/03/20 Insulin Degludec [Tresiba Flextouch U-100] 80 unit SUBCUT DAILY 01/03/20 Oxycodone HCl [Oxy-Ir 5 mg Tablet] 5 mg PO Q6HP PRN MDD OKAY TO TAKE WITH PERCOCET 01/03/20 Oxycodone HCl/Acetaminophen [Oxycodone-Acetaminophen 10-325] 1 each PO Q6HP PRN 01/03/20 Suvorexant [Belsomra] 15 mg PO HSP PRN 01/03/20 Torsemide [Demadex 20 mg Tablet] 20 mg PO DAILY 01/03/20 Trazodone HCl [Desyrel 50 mg Tablet] 75 mg PO QHS 01/03/20 Allergies/Adverse Reactions: Penicillins Allergy (Severe, Verified 01/03/20 07:04) sulfamethoxazole [From Bactrim] Allergy (Severe, Verified 01/03/20 07:04) rash trimethoprim [From Bactrim] Allergy (Severe, Verified 01/03/20 07:04) rash Review of Systems Constitutional: PRESENT: fatigue Eyes: ABSENT: visual disturbances Ears: ABSENT: hearing changes Cardiovascular: ABSENT: chest pain, dyspnea on exertion, edema, orthropnea, palpitations Respiratory: ABSENT: cough, hemoptysis Gastrointestinal: ABSENT: abdominal pain, constipation, diarrhea, hematemesis, hematochezia, nausea, vomiting Genitourinary: ABSENT: dysuria, hematuria Musculoskeletal: ABSENT: joint swelling Integumentary: ABSENT: rash, wounds Neurological: ABSENT: abnormal gait, abnormal speech, confusion, dizziness, focal weakness, syncope Psychiatric: ABSENT: anxiety, depression, homidical ideation, suicidal ideation Endocrine: PRESENT: polyphagia, polyuria Hematologic/Lymphatic: ABSENT: easy bleeding, easy bruising, lymphadenopathy Physical Exam Vital Signs: Temp Pulse Resp BP Pulse Ox 97.7 F 81 17 126/64 H 92 01/03/20 16:56 01/03/20 19:42 01/03/20 19:42 01/03/20 19:42 01/03/20 19:42 Intake & Output 01/02/20 01/03/20 01/04/20 06:59 06:59 06:59 Intake Total 240 Balance 240 Weight 137.438 kg General appearance: PRESENT: morbidly obese Head exam: PRESENT: atraumatic, normocephalic Eye exam: PRESENT: PERRLA Ear exam: PRESENT: normal external ear exam Mouth exam: PRESENT: dry mucosa Neck exam: PRESENT: full ROM Respiratory exam: PRESENT: clear to auscultation tarsha Cardiovascular exam: PRESENT: RRR, +S1, +S2 Pulses: PRESENT: normal dorsalis pedis pul, +2 pedal pulses bilateral Vascular exam: PRESENT: normal capillary refill GI/Abdominal exam: PRESENT: normal bowel sounds, soft Rectal exam: PRESENT: deferred Neurological exam: PRESENT: alert, CN II-XII grossly intact Psychiatric exam: PRESENT: appropriate affect, normal mood Skin exam: PRESENT: dry, intact, warm Results Laboratory Results: 01/03/20 17:55 01/03/20 17:55 01/03/20 01/03/20 01/03/20 17:55 17:55 17:55 WBC 10.3 RBC 4.19 Hgb 12.0 Hct 35.7 L MCV 85 MCH 28.8 MCHC 33.8 RDW 14.4 H Plt Count 219 Sodium 133.7 L Potassium 3.8 Chloride 97 L Carbon Dioxide 28 Anion Gap 9 BUN 27 H Creatinine 1.73 H Est GFR ( Amer) 37 L Glucose 366 H Calcium 9.3 Total Bilirubin 0.3 AST 26 Alkaline Phosphatase 90 Total Protein 7.1 Albumin 3.7 TSH 1.07 Free T4 1.13 Assessment & Plan - Diagnosis (1) Uncontrolled diabetes mellitus Qualifiers: Diabetes mellitus type: type 2 Glycemic state: with hyperglycemia Qualified Code(s): E11.65 - Type 2 diabetes mellitus with hyperglycemia Is this a current diagnosis for this admission?: Yes Plan: Patient admitted for the management of uncontrolled diabetes, treating with IV fluid, insulin therapy (2) Morbid obesity with BMI of 45.0-49.9, adult Is this a current diagnosis for this admission?: Yes (3) CKD (chronic kidney disease) stage 3, GFR 30-59 ml/min Is this a current diagnosis for this admission?: Yes (4) Charcot foot due to diabetes mellitus Is this a current diagnosis for this admission?: Yes
[2020-01-03] MEDS: INSULIN, REGULAR 100 UNIT/100 ML NORMAL SALINE IV PRN ×2 (22:10)
[2020-01-03] MEDS: OXYCODONE-ACETAMINOPHEN 5-325 MG TABLET PO PRN (22:49)
[2020-01-03 23:51] LABS: APPEARANCE,URINE CLEAR; BILIRUBIN,URINE NEGATIVE (NEGATIVE); COLOR,URINE STRAW; GLUCOSE, URINE >=500 mg/dL (NEGATIVE); KETONES,URINE NEGATIVE (NEGATIVE); LEUKOCYTE ESTERASE,URINE NEGATIVE (NEGATIVE); NITRITE,URINE NEGATIVE (NEGATIVE); PROTEIN,URINE NEGATIVE (NEGATIVE); URINE SPECIFIC GRAVITY 1.009; UROBILINOGEN,URINE NEGATIVE mg/dL (<2.0)
[2020-01-04] MEDS: OXYCODONE HCL IR 5 MG TABLET PO PRN ×3 (01:05→14:58)
[2020-01-04] MEDS: NORMAL SALINE 1000 ML 1,000 ML IV PRN ×2 (02:25→12:46)
[2020-01-04] MEDS: HYDRALAZINE HCL 25 MG TABLET PO SCH ×3 (05:45→22:06)
[2020-01-04] MEDS: GABAPENTIN 300 MG CAPSULE PO SCH ×3 (05:45→22:06)
[2020-01-04] MEDS: INSULIN, REGULAR 100 UNIT/100 ML NORMAL SALINE IV PRN ×2 (07:35)
[2020-01-04] MEDS ORDERED: INSULIN GLARGINE,HUM.REC.ANLOG 1,000 UNIT/10 ML VIAL (PYX) SUBCUT ONE (09:02)
[2020-01-04] MEDS: FLUOXETINE HCL 20 MG CAPSULE PO SCH (09:11)
[2020-01-04] MEDS: PANTOPRAZOLE SODIUM 40 MG TABLET.DR PO SCH (09:12)
[2020-01-04] MEDS: METOPROLOL SUCCINATE 50 MG TAB.SR.24H PO SCH (09:12)
[2020-01-04] MEDS: FERROUS SULFATE 325 MG TABLET PO SCH ×2 (09:12→17:42)
[2020-01-04] MEDS: ISOSORBIDE MONONITRATE 30 MG TAB.ER.24H PO SCH (09:12)
[2020-01-04] MEDS: ASPIRIN 325 MG TABLET, ENT COATED PO SCH (09:12)
[2020-01-04] MEDS: INSULIN GLARGINE,HUM.REC.ANLOG 1,000 UNIT/10 ML VIAL SUBCUT SCH (09:13)
[2020-01-04] MEDS: MULTIVITAMIN TABLET PO SCH (09:13)
[2020-01-04] MEDS: FAMOTIDINE 20 MG TABLET PO SCH (09:13)
[2020-01-04] MEDS: DILTIAZEM HCL 120 MG CAP.SR.24H PO SCH (09:13)
[2020-01-04] MEDS: RANOLAZINE 500 MG TAB.SR.12H PO SCH ×2 (09:13→17:42)
[2020-01-04] MEDS: TORSEMIDE 20 MG TABLET PO SCH (09:14)
[2020-01-04] MEDS: OXYCODONE-ACETAMINOPHEN 5-325 MG TABLET PO PRN ×2 (11:36→19:32)
[2020-01-04] MEDS ORDERED: (PENDING PHARMACY ID) (Insulin Aspart [Novolog Insulin (Aspart) 100 Unit/Ml] 10 UNIT) SUBCUT SCH ×2 (12:15→17:00)
[2020-01-04] MEDS ORDERED: GLUCAGON,HUMAN RECOMB 1 MG INJ IM PRN (12:30)
[2020-01-04] MEDS ORDERED: DEXTROSE 50%-WATER SYRINGE 12.5 GM/25 ML DOSE IV PRN (12:30)
[2020-01-04] MEDS ORDERED: DEXTROSE 50%-WATER SYRINGE 25 GM/50 ML DOSE IV PRN (12:30)
[2020-01-04] MEDS ORDERED: DEXTROSE 40% GEL 15 GM TUBE PO PRN (12:30)
[2020-01-04] MEDS ORDERED: DEXTROSE 40% GEL 15 GM TUBE X 2 PO PRN (12:30)
[2020-01-04] MEDS: INSULIN LISPRO 100 UNIT/ML 3 ML VIAL SUBCUT SCH ×4 (12:45→22:08)
[2020-01-04] MEDS ORDERED: CALCITRIOL 0.25 MCG CAPSULE PO SCH (20:20)
[2020-01-04] MEDS ORDERED: ONDANSETRON HCL INJ/PF 4 MG/2 ML SDV IV PRN (21:30)
--- NOTE | 2020-01-04 21:50 | PDOC DISCHARGE SUMMARY ---
Impression - Admit/DC Date/PCP Admission Date/Primary Care Provider: 01/03/20 16:11 EMILIANO DELGADO MD Discharge Date: 01/05/20 - Discharge Diagnosis (1) Uncontrolled diabetes mellitus Is this a current diagnosis for this admission?: Yes (2) Morbid obesity with BMI of 45.0-49.9, adult Is this a current diagnosis for this admission?: Yes (3) CKD (chronic kidney disease) stage 3, GFR 30-59 ml/min Is this a current diagnosis for this admission?: Yes (4) Charcot foot due to diabetes mellitus Is this a current diagnosis for this admission?: Yes - Additional Information Discharge Activity: Activity As Tolerated Referrals: EMILIANO DELGADO MD [Primary Care Provider] - Home Medications: Alprazolam [Xanax 0.5 mg Tablet] 0.5 mg PO DAILYP PRN 05/07/19 Aspirin [Ecotrin 325 mg EC Tablet] 325 mg PO QAM 05/07/19 Calcitriol [Rocaltrol] 0.25 mcg PO MOWEFR 05/07/19 Dexlansoprazole [Dexilant 60 mg Capsule] 60 mg PO QAM 05/07/19 Diltiazem HCl [Cardizem Cd 120 mg Capsule] 120 mg PO QAM 05/07/19 Ferrous Sulfate [Feosol 325 mg Tablet] 325 mg PO BID 05/07/19 Fluoxetine HCl [Prozac] 80 mg PO QAM 05/07/19 Gabapentin [Neurontin] 600 mg PO Q8 05/07/19 Hydralazine HCl [Apresoline 25 mg Tablet] 25 mg PO Q8 05/07/19 Isosorbide Mononitrate [Imdur 30 mg Tablet.er] 30 mg PO QAM 05/07/19 Prucalopride Succinate [Motegrity] 2 mg PO DAILY 05/07/19 Ranolazine [Ranexa 500 mg Tab.sr] 500 mg PO BID 05/07/19 Rosuvastatin Calcium [Crestor] 40 mg PO DAILY 05/07/19 Icosapent Ethyl [Vascepa] 2 gm PO Q12 06/22/19 Metoprolol Succinate 100 mg PO DAILY 06/22/19 Multivitamin/Iron/Folic Acid [Centrum Adults Tablet] 1 tab PO DAILY 06/22/19 Brexpiprazole [Rexulti] 3 mg PO QHS 01/03/20 Famotidine [Pepcid 20 mg Tablet] 20 mg PO DAILY 01/03/20 Insulin Aspart [Novolog Insulin (Aspart) 100 unit/mL] 0 unit SUBCUT .SLD SCALE 01/03/20 Insulin Aspart [Novolog Insulin (Aspart) 100 unit/mL] 10 unit SUBCUT MEALS 01/03/20 Insulin Degludec [Tresiba Flextouch U-100] 80 unit SUBCUT DAILY 01/03/20 Oxycodone HCl [Oxy-Ir 5 mg Tablet] 5 mg PO Q6HP PRN MDD OKAY TO TAKE WITH PERCOCET 01/03/20 Oxycodone HCl/Acetaminophen [Oxycodone-Acetaminophen 10-325] 1 each PO Q6HP PRN 01/03/20 Suvorexant [Belsomra] 15 mg PO HSP PRN 01/03/20 Torsemide [Demadex 20 mg Tablet] 20 mg PO DAILY 01/03/20 Trazodone HCl [Desyrel 50 mg Tablet] 75 mg PO QHS 01/03/20 History of Present Illiness History of Present Illness: JESU ORR is a 59 year old female,She has type 2 diabetes poorly controlled she was scheduled for outpatient procedure with GI Dr. Vazquez, she was found to have blood sugar more than 500, the procedure was canceled, she came to the office today I felt it is appropriate to admit her to the hospital for management. The hemoglobin A1c more than 14,Reflection of poor control of diabetes mellitus Hospital Course Hospital Course: Patient was admitted for the management of uncontrolled diabetes mellitus, she was treated with intravenous normal saline, insulin drip, to normalize serum glucoseShe was admitted essentially for IV fluid therapy because of the severe hyperglycemia with the sequelae associated with hyperglycemia ,dehydration Physical Exam Vital Signs: Temp Pulse Resp BP Pulse Ox 97.9 F 69 18 151/67 H 98 01/04/20 20:14 01/04/20 20:14 01/04/20 20:14 01/04/20 20:14 01/04/20 20:14 Intake & Output 01/03/20 01/04/20 01/05/20 06:59 06:59 06:59 Intake Total 1390 2193 Balance 1390 2193 Weight 137.4 kg General appearance: PRESENT: no acute distress Eye exam: PRESENT: PERRLA Respiratory exam: PRESENT: clear to auscultation tarsha Cardiovascular exam: PRESENT: +S1, +S2 GI/Abdominal exam: PRESENT: soft Neurological exam: PRESENT: alert, CN II-XII grossly intact Results Laboratory Results: WBC 10.3 10^3/uL (4.0-10.5) 01/03/20 17:55 RBC 4.19 10^6/uL (3.72-5.28) 01/03/20 17:55 Hgb 12.0 g/dL (12.0-15.5) 01/03/20 17:55 Hct 35.7 % (36.0-47.0) L 01/03/20 17:55 MCV 85 fl (80-97) 01/03/20 17:55 MCH 28.8 pg (27.0-33.4) 01/03/20 17:55 MCHC 33.8 g/dL (32.0-36.0) 01/03/20 17:55 RDW 14.4 % (11.5-14.0) H 01/03/20 17:55 Plt Count 219 10^3/uL (150-450) 01/03/20 17:55 Sodium 133.7 mmol/L (137-145) L 01/03/20 17:55 Potassium 3.8 mmol/L (3.6-5.0) 01/03/20 17:55 Chloride 97 mmol/L (98-107) L 01/03/20 17:55 Carbon Dioxide 28 mmol/L (22-30) 01/03/20 17:55 Anion Gap 9 (5-19) 01/03/20 17:55 BUN 27 mg/dL (7-20) H 01/03/20 17:55 Creatinine 1.73 mg/dL (0.52-1.25) H 01/03/20 17:55 Est GFR ( Amer) 37 (>60) L 01/03/20 17:55 Est GFR (MDRD) Non-Af 30 (>60) L 01/03/20 17:55 Glucose 366 mg/dL (75-110) H 01/03/20 17:55 POC Glucose 297 mg/dL (70-110) H 01/04/20 21:21 Hemoglobin A1c % > 14.0 % (4.7-6.0) H 01/03/20 17:55 Calcium 9.3 mg/dL (8.4-10.2) 01/03/20 17:55 Total Bilirubin 0.3 mg/dL (0.2-1.3) 01/03/20 17:55 Direct Bilirubin 0.0 mg/dL (0.0-0.4) 01/03/20 17:55 Neonat Total Bilirubin Not Reportable 01/03/20 17:55 Neonat Direct Bilirubin Not Reportable 01/03/20 17:55 Neonat Indirect Bili Not Reportable 01/03/20 17:55 AST 26 U/L (14-36) 01/03/20 17:55 ALT 22 U/L (<35) 01/03/20 17:55 Alkaline Phosphatase 90 U/L (38-126) 01/03/20 17:55 Total Protein 7.1 g/dL (6.3-8.2) 01/03/20 17:55 Albumin 3.7 g/dL (3.5-5.0) 01/03/20 17:55 TSH 1.07 uIU/mL (0.47-4.68) 01/03/20 17:55 Free T4 1.13 ng/dL (0.78-2.19) 01/03/20 17:55 Urine Color STRAW 01/03/20 23:00 Urine Appearance CLEAR 01/03/20 23:00 Urine pH 7.0 (5.0-9.0) 01/03/20 23:00 Ur Specific Anderson 1.009 01/03/20 23:00 Urine Protein NEGATIVE mg/dL (NEGATIVE) 01/03/20 23:00 Urine Glucose (UA) >=500 mg/dL (NEGATIVE) H 01/03/20 23:00 Urine Ketones NEGATIVE mg/dL (NEGATIVE) 01/03/20 23:00 Urine Blood NEGATIVE (NEGATIVE) 01/03/20 23:00 Urine Nitrite NEGATIVE (NEGATIVE) 01/03/20 23:00 Urine Bilirubin NEGATIVE (NEGATIVE) 01/03/20 23:00 Urine Urobilinogen NEGATIVE mg/dL (<2.0) 01/03/20 23:00 Ur Leukocyte Esterase NEGATIVE (NEGATIVE) 01/03/20 23:00 Urine WBC (Auto) 1 /HPF 01/03/20 23:00 Urine RBC (Auto) 1 /HPF 01/03/20 23:00 U Hyaline Cast (Auto) 1 /LPF 01/03/20 23:00 Urine Bacteria (Auto) TRACE /HPF 01/03/20 23:00 Squamous Epi Cells Auto 1 /HPF 01/03/20 23:00 Urine Mucus (Auto) RARE /LPF 01/03/20 23:00 Urine Ascorbic Acid NEGATIVE (NEGATIVE) 01/03/20 23:00 Stroke Is this a Stroke Patient?: No Acute Heart Failure - Is this a Heart Failure Patient?: No
[2020-01-04] MEDS: TRAZODONE HCL 50 MG TABLET PO SCH (22:05)
[2020-01-04] MEDS: ATORVASTATIN CALCIUM 80 MG TABLET PO SCH (22:05)
[2020-01-05] MEDS ORDERED: ACETAMINOPHEN 325 MG TABLET ONE (01:54)
[2020-01-05] MEDS ORDERED: ACETAMINOPHEN 325 MG TABLET PO PRN (02:06)
[2020-01-05] MEDS: NORMAL SALINE 1000 ML 1,000 ML IV PRN (02:07)
[2020-01-05] MEDS: GABAPENTIN 300 MG CAPSULE PO SCH (05:22)
[2020-01-05] MEDS: HYDRALAZINE HCL 25 MG TABLET PO SCH (05:22)
[2020-01-05] MEDS: ASPIRIN 325 MG TABLET, ENT COATED PO SCH (08:42)
[2020-01-05] MEDS: DILTIAZEM HCL 120 MG CAP.SR.24H PO SCH (08:42)
[2020-01-05] MEDS: ISOSORBIDE MONONITRATE 30 MG TAB.ER.24H PO SCH (08:42)
[2020-01-05] MEDS: FLUOXETINE HCL 20 MG CAPSULE PO SCH (08:42)
[2020-01-05] MEDS: PANTOPRAZOLE SODIUM 40 MG TABLET.DR PO SCH (08:42)
[2020-01-05] MEDS: INSULIN LISPRO 100 UNIT/ML 3 ML VIAL SUBCUT SCH ×2 (08:43)
[2020-01-05] MEDS: INSULIN GLARGINE,HUM.REC.ANLOG 1,000 UNIT/10 ML VIAL SUBCUT SCH (10:13)
[2020-01-05] MEDS: FERROUS SULFATE 325 MG TABLET PO SCH (10:14)
[2020-01-05] MEDS: TORSEMIDE 20 MG TABLET PO SCH (10:14)
[2020-01-05] MEDS: METOPROLOL SUCCINATE 50 MG TAB.SR.24H PO SCH (10:14)
[2020-01-05] MEDS: FAMOTIDINE 20 MG TABLET PO SCH (10:14)
[2020-01-05] MEDS: MULTIVITAMIN TABLET PO SCH (10:15)
[2020-01-05] MEDS: RANOLAZINE 500 MG TAB.SR.12H PO SCH (10:15)
[2020-01-05 10:36] VITALS: BP 136/83
== END 2020-01-05 11:23 | disposition home or self-care (01) ==
LOC: 5 16:11
PROVIDERS: ADMIT Internal Medicine; ATTEND Internal Medicine
DX: E11.65 Type 2 diabetes mellitus with hyperglycemia (principal); E11.22 Type 2 diabetes mellitus with diabetic chronic kidney disease; I12.9 Hypertensive chronic kidney disease with stage 1 through stage 4 chronic kidney disease, or unspecified chronic kidney disease; N18.3 Chronic kidney disease, stage 3 (moderate); E11.610 Type 2 diabetes mellitus with diabetic neuropathic arthropathy; E66.01 Morbid (severe) obesity due to excess calories; E86.0 Dehydration; E78.5 Hyperlipidemia, unspecified; K21.9 Gastro-esophageal reflux disease without esophagitis; I25.2 Old myocardial infarction; I25.10 Atherosclerotic heart disease of native coronary artery without angina pectoris; Z90.5 Acquired absence of kidney; Z85.528 Personal history of other malignant neoplasm of kidney; Z95.5 Presence of coronary angioplasty implant and graft; Z87.891 Personal history of nicotine dependence; Z79.82 Long term (current) use of aspirin; Z79.4 Long term (current) use of insulin
CPT/HCPCS: 36415; 87040; 87086; 84439; 82962 ×3; 84443; 85027; 80076; 80048; 81001; 83036; G0378 ×3; G0379; U0003; A9270 ×44; J2405; J7050; J7030 ×3; C9803; 87635; J0585; J1815; J3490

== ENCOUNTER → 2020-01-03 | Day surgery (SDC) | payer MEDICARE, MEDICAID ==
[~2020-01-03] MED LIST changes: -LIDOCAINE 2% INJ-PF (20 MG/ML) 10 ML AMPUL ONE; -PROPOFOL INJ 200 MG/20 ML VIAL IV ONE
[2020-01-03 07:04] VITALS: BP 123/61
== END ==
LOC: END 06:34
PROVIDERS: ATTEND Internal Medicine Gastroenterology
DX: K31.84 Gastroparesis (principal); Z03.818 Encounter for observation for suspected exposure to other biological agents ruled out; E11.9 Type 2 diabetes mellitus without complications
CPT/HCPCS: 82962; U0003; C9803; 87635; J0585

== ENCOUNTER 2020-01-15 08:13 | Day surgery (SDC) | payer MEDICARE, MEDICAID ==
[~2020-01-15 08:13] MED LIST changes: -ONABOTULINUMTOXINA INJ/PF 100 UNIT SDV IM PRN; +PROPOFOL INJ 200 MG/20 ML VIAL IV ONE
[2020-01-15] MEDS ORDERED: ONABOTULINUMTOXINA INJ/PF 100 UNIT SDV IM PRN (08:50)
[2020-01-15 10:56] VITALS: BP 153/71
--- NOTE | 2020-01-15 11:22 | Operative Report ---
Operative Report DATE OF SURGERY: 01/15/20 Operative Report: The risks benefits and alternatives of the procedure explained to the patient in detail and informed consent is obtained.A GIF Olympus video scope was inserted into the patient's mouth and hypopharynx, the esophagus is identified intubated and insufflated, the scope was then advanced through the esophagus stomach and duodenum ,retroflexion maneuver is done, the esophagus stomach and first and second portions of the duodenum examined PREOPERATIVE DIAGNOSIS: Nausea vomiting, gastroparesis POSTOPERATIVE DIAGNOSIS: Gastritis status post biopsy. Residual food in stomach suggestive of gastroparesis despite n.p.o. since last midnight requiring submucosal Botox injection for relief OPERATION: EGD with submucosal injection. EGD with biopsy SURGEON: SHENG PIMENTEL ANESTHESIA: LMAC TISSUE REMOVED OR ALTERED: As noted above. COMPLICATIONS: None. ESTIMATED BLOOD LOSS: None. INTRAOPERATIVE FINDINGS: As noted above. PROCEDURE: Patient tolerated the procedure well. No immediate postprocedure complications are noted. Patient is discharged in good condition. Discharge date 01/15/2020. Discharge diet: Regular. Discharge activity: Regular. 2 to 3-week follow-up to discuss findings. Patient is instructed call the office or proceed to the emergency room should there be any further problems or questions. Wait on the pathology.
== END 2020-01-15 10:59 | disposition home or self-care (01) ==
LOC: END 08:13
PROVIDERS: ATTEND Internal Medicine Gastroenterology
DX: K31.84 Gastroparesis (principal); K31.9 Disease of stomach and duodenum, unspecified; I25.10 Atherosclerotic heart disease of native coronary artery without angina pectoris; I13.0 Hypertensive heart and chronic kidney disease with heart failure and stage 1 through stage 4 chronic kidney disease, or unspecified chronic kidney disease; I50.9 Heart failure, unspecified; N18.4 Chronic kidney disease, stage 4 (severe); E11.22 Type 2 diabetes mellitus with diabetic chronic kidney disease; I25.2 Old myocardial infarction; Z79.899 Other long term (current) drug therapy; E66.9 Obesity, unspecified; Z79.82 Long term (current) use of aspirin; Z79.4 Long term (current) use of insulin; Z88.0 Allergy status to penicillin; Z85.528 Personal history of other malignant neoplasm of kidney; Z86.73 Personal history of transient ischemic attack (TIA), and cerebral infarction without residual deficits; Z90.5 Acquired absence of kidney; Z88.1 Allergy status to other antibiotic agents
CPT/HCPCS: 43239; 82962; 88342 ×2; 88305 ×2; 00731; J2704; J0585; 43236; 731

== ENCOUNTER → 2020-01-28 | Outpatient (CLI) | payer MEDICARE, MEDICAID ==
[2020-01-28 10:38] LABS: ABSOLUTE BASOPHILS # (AUTO) 0.1 10^3/uL (0.0-0.2); ABSOLUTE EOSINOPHILS # (AUTO) 0.4 10^3/uL (0.0-0.6); ABSOLUTE LYMPHOCYTES (AUTO) 3.1 10^3/uL (0.5-4.7); ABSOLUTE MONOCYTES (AUTO) 0.5 10^3/uL (0.1-1.4); ABSOLUTE NEUT (AUTO) 6.9 10^3/uL (1.7-8.2); BASOPHILS % (AUTO) 0.8 % (0-2); EOSINOPHILS % (AUTO) 3.6 % (0-6); HEMATOCRIT 38.1 % (36.0-47.0); HEMOGLOBIN 12.6 g/dL (12.0-15.5); LYMPHOCYTES % (AUTO) 28.1 % (13-45); MEAN CORPUSCULAR HEMOGLOBIN 28.1 pg (27.0-33.4); MEAN CORPUSCULAR HGB CONC 33.1 g/dL (32.0-36.0); MEAN CORPUSCULAR VOLUME 85 fl (80-97); MONOCYTES % (AUTO) 4.7 % (3-13); PLATELET COUNT 259 10^3/uL (150-450); RED BLOOD COUNT 4.49 10^6/uL (3.72-5.28); SEGMENTED NEUTROPHILS % (AUTO) 62.8 % (42-78); TOTAL CELLS COUNTED % (AUTO) 100 %
[2020-01-28 10:57] LABS: ALBUMIN 4.1 g/dL (3.5-5.0); ANION GAP 15 (5-19); BLOOD UREA NITROGEN 18 mg/dL (7-20); CALCIUM 9.4 mg/dL (8.4-10.2); CARBON DIOXIDE 28 mmol/L (22-30); CHLORIDE 91 mmol/L (98-107); GLUCOSE 367 mg/dL (75-110); POTASSIUM 4.2 mmol/L (3.6-5.0)
[2020-01-28 11:03] LABS: APPEARANCE,URINE CLEAR; BILIRUBIN,URINE NEGATIVE (NEGATIVE); COLOR,URINE YELLOW; GLUCOSE, URINE 150 mg/dL (NEGATIVE); KETONES,URINE NEGATIVE (NEGATIVE); LEUKOCYTE ESTERASE,URINE NEGATIVE (NEGATIVE); NITRITE,URINE NEGATIVE (NEGATIVE); PROTEIN,URINE 30 mg/dL (NEGATIVE); URINE SPECIFIC GRAVITY 1.011; UROBILINOGEN,URINE NEGATIVE mg/dL (<2.0)
[2020-01-28 11:24] LABS: UR PRO/CREAT RATIO RESULT 0.7 mg/mg (0.0-0.2); URINE PROTEIN 40.9 mg/dL (<12)
== END ==
LOC: OD 09:59
PROVIDERS: ATTEND Physician Assistant Medical
DX: I11.0 Hypertensive heart disease with heart failure (principal); I50.9 Heart failure, unspecified; N18.2 Chronic kidney disease, stage 2 (mild); E11.22 Type 2 diabetes mellitus with diabetic chronic kidney disease; R80.9 Proteinuria, unspecified; E87.5 Hyperkalemia
CPT/HCPCS: 36415; 80069; 81001; 82570; 83970; 84156; 85025

== ENCOUNTER → 2020-02-07 | Outpatient (CLI) | payer MEDICARE, MEDICAID ==
--- NOTE | 2020-02-07 14:22 | RADIOLOGY REPORT (SQ) ---
EXAM DESCRIPTION: CT ABD/PELVIS NO ORAL OR IV IMAGES COMPLETED DATE/TIME: 02/07/2020 1:27 pm REASON FOR STUDY: (R10.32)LEFT LOWER QUADRANT PAIN R10.32 LEFT LOWER QUADRANT PAIN COMPARISON: 10/07/2019 TECHNIQUE: CT scan of the abdomen and pelvis performed without intravenous or oral contrast. Images reviewed with lung, soft tissue, and bone windows. Reconstructed coronal and sagittal MPR images revi ewed. All images stored on PACS. All CT scanners at this facility use dose modulation, iterative reconstruction, and/or weight based d osing when appropriate to reduce radiation dose to as low as reasonably achievable (ALARA). [facility]: Dose Right [facility]: CareDose [facility]: Dose Right [facility]: Teradose 4D [facility]: [employer] RADIATION DOSE: CT Rad equipment meets quality standard of care and radiation dose reduction techniq ues were employed. CTDIvol: 31.4 mGy. DLP: 1722 mGy-cm.mGy. LIMITATIONS: None. FINDINGS: LOWER CHEST: No significant findings. No nodules or infiltrates. NON-CONTRASTED LIVER, SPLEEN, ADRENALS: Evaluation limited by lack of IV contrast. No identified sign ificant masses. PANCREAS: No masses. No peripancreatic inflammatory changes. GALLBLADDER: Surgically absent. RIGHT KIDNEY AND URETER: Prior nephrectomy. LEFT KIDNEY AND URETER: No solid masses. No significant calcification. No hydronephrosis or hydrouret er. AORTA AND RETROPERITONEUM: No aneurysm. No retroperitoneal masses or adenopathy. BOWEL AND PERITONEAL CAVITY: No obvious masses or inflammatory changes. No free fluid. APPENDIX: Not visualized. 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 No ascites. BONES: Nothing acute. OTHER: No other significant finding. IMPRESSION: Large right lower quadrant hernia. No evidence of bowel incarceration. No acute findin gs. TECHNICAL DOCUMENTATION: JOB ID: [id number] Quality ID # [id number]: Final reports with documentation of one or more dose reduction techniques (e.g., Au tomated exposure control, adjustment of the mA and/or kV according to patient size, use of iterative reconstruction technique) 2010 [employer]- All Rights Reserved Reading location - IP/workstation name: [email or web address]
== END ==
LOC: RAD 13:14
PROVIDERS: ATTEND Internal Medicine
DX: K43.9 Ventral hernia without obstruction or gangrene (principal); R10.32 Left lower quadrant pain
CPT/HCPCS: 74176

== ENCOUNTER 2020-03-04 11:07 | Emergency (ER) | payer MEDICARE, MEDICAID ==
--- NOTE | 2020-03-04 11:25 | ER Document Report ---
ED Medical Screen (RME) - General Chief Complaint: Wound Infection Stated Complaint: WOUND INFECTION Time Seen by Provider: 03/04/20 11:16 Primary Care Provider: EMILIANO DELGADO MD [Primary Care Provider] - Follow up as needed TRAVEL OUTSIDE OF THE [place] IN LAST 30 DAYS: No - HPI Notes: 03/04/20 11:22 89-year-old female presents to the emergency room from [facility] podiatry for an evaluation of a diabetic ulcer to the right medial aspect of her foot. Patient states that she noticed it 2 days ago, went to her podiatry appointment today, the doctor noticed the diabetic ulcer called her primary care doctor, Dr. Nye they advised her to come to the emergency room to see if she has osteomyelitis. Patient is an insulin-dependent diabetic, states her A1c is roughly in the 11's. Patient is unable to bear full weight. Is in a wheelchair. Patient did put herself into a right foot immobilizer. Denies trauma to foot. Denies any fevers chills, chest pain, shortness of breath. I have greeted and performed a rapid initial assessment of this patient. A comprehensive ED assessment and evaluation of the patient, analysis of test results and completion of the medical decision making process will be conducted by additional ED providers. PHYSICAL EXAMINATION: GENERAL: Well-appearing, well-nourished and in no acute distress. CV: s1, s2 regular LUNGS: No respiratory distress Musculoskeletal: Normal range of motion NEUROLOGICAL: Normal speech, normal gait. SKIN: Warm, Dry, normal turgor, no rashes or lesions noted. medial aspect of right foot with a 4 cm x 5 cm ulceration. Distal pulses +2 bilaterally and equally - Related Data Allergies/Adverse Reactions: Penicillins Allergy (Severe, Verified 01/03/20 07:04) sulfamethoxazole [From Bactrim] Allergy (Severe, Verified 01/03/20 07:04) rash trimethoprim [From Bactrim] Allergy (Severe, Verified 01/03/20 07:04) rash Past Medical History - Social History Frequency of alcohol use: None Drug Abuse: None - Past Medical History Cardiac Medical History: Reports: Hx Congestive Heart Failure, Hx Heart Attack - 2015, Hx Hypercholesterolemia, Hx Hypertension Denies: Hx Coronary Artery Disease, Hx DVT Pulmonary Medical History: Denies: Hx Asthma, Hx Bronchitis, Hx COPD, Hx Pneumonia Neurological Medical History: Denies: Hx Cerebrovascular Accident, Hx Seizures Endocrine Medical History: Reports: Hx Diabetes Mellitus Type 1, Hx Diabetes Mellitus Type 2 Renal/ Medical History: Reports: Hx End Stage Renal Disease. Denies: Hx Peritoneal Dialysis Malignancy Medical History: Reports: Hx Renal (Kidney) Cancer - s/p right nephrectomy September, GI Medical History: Reports: Hx Gastroesophageal Reflux Disease, Hx Hiatal Hernia. Denies: Hx Crohn's Disease, Hx Hepatitis, Hx Ulcer, Hx Ulcerative Colitis Musculoskeltal Medical History: Reports Hx Arthritis Skin Medical History: Denies Hx Psoriasis Psychiatric Medical History: Reports: Hx Depression Traumatic Medical History: Denies: Hx Traumatic Brain Injury Infectious Medical History: Denies: Hx C-Diff, Hx Hepatitis Past Surgical History: Reports: Hx Cardiac Catheterization - stent placement, Hx Cardiac Surgery - stent placement, Hx Cholecystectomy, Hx Coronary Stent - 2013, Hx Kidney (Renal Surgery) - R removal, Hx Orthopedic Surgery - left hand, left great toe amputation, Other - right nephrectomy for ca. Denies: Hx Hysterectomy, Hx Mastectomy, Hx Open Heart Surgery, Hx Pacemaker - Immunizations Hx Diphtheria, Pertussis, Tetanus Vaccination: Yes Physical Exam - Vital signs Vitals: Temp Pulse Resp BP Pulse Ox 97.9 F 90 18 139/96 H 95 03/04/20 11:12 03/04/20 11:12 03/04/20 11:12 03/04/20 11:12 03/04/20 11:12 Course - Vital Signs Vital signs: Temp Pulse Resp BP Pulse Ox 97.9 F 90 18 139/96 H 95 03/04/20 11:12 03/04/20 11:12 03/04/20 11:12 03/04/20 11:12 03/04/20 11:12 Doctor's Discharge - Discharge Referrals: EMILIANO DELGADO MD [Primary Care Provider] - Follow up as needed
[2020-03-04 11:41] LABS: ABSOLUTE BASOPHILS # (AUTO) 0.1 10^3/uL (0.0-0.2); ABSOLUTE EOSINOPHILS # (AUTO) 0.3 10^3/uL (0.0-0.6); ABSOLUTE MONOCYTES (AUTO) 0.4 10^3/uL (0.1-1.4); BASOPHILS % (AUTO) 0.9 % (0-2); HEMATOCRIT 37.4 % (36.0-47.0); HEMOGLOBIN 12.5 g/dL (12.0-15.5); LYMPHOCYTES % (AUTO) 27.2 % (13-45); MEAN CORPUSCULAR HGB CONC 33.3 g/dL (32.0-36.0); MEAN CORPUSCULAR VOLUME 84 fl (80-97); MONOCYTES % (AUTO) 4.1 % (3-13); PLATELET COUNT 260 10^3/uL (150-450); RED BLOOD COUNT 4.45 10^6/uL (3.72-5.28); RED CELL DISTRIBUTION WIDTH 14.6 % (11.5-14.0); SEGMENTED NEUTROPHILS % (AUTO) 64.8 % (42-78); TOTAL CELLS COUNTED % (AUTO) 100 %; WHITE BLOOD COUNT 10.9 10^3/uL (4.0-10.5)
[2020-03-04 12:05] LABS: ALBUMIN 4.2 g/dL (3.5-5.0); ALKALINE PHOSPHATASE 91 U/L (38-126); ANION GAP 11 (5-19); ASPARTATE AMINO TRANSFERASE 29 U/L (14-36); BILIRUBIN,DIRECT 0.5 mg/dL (0.0-0.4); BILIRUBIN,TOTAL 0.5 mg/dL (0.2-1.3); BLOOD UREA NITROGEN 21 mg/dL (7-20); C-REACTIVE PROTEIN 14.8 mg/L (<10.0); CALCIUM 9.5 mg/dL (8.4-10.2); CARBON DIOXIDE 31 mmol/L (22-30); CHLORIDE 93 mmol/L (98-107); GLUCOSE 379 mg/dL (75-110); POTASSIUM 4.4 mmol/L (3.6-5.0); TOTAL PROTEIN 7.9 g/dL (6.3-8.2)
--- NOTE | 2020-03-04 12:16 | ER Document Report ---
ED General - General Chief Complaint: Wound Infection Stated Complaint: WOUND INFECTION Time Seen by Provider: 03/04/20 11:16 Primary Care Provider: EMILIANO DELGADO MD [Primary Care Provider] - Follow up in 3-5 days (For a wound check, we have outlined the wound) Notes: Patient presents with pain and redness of the right foot onset 2 days ago minimal redness surrounding but no tracking and no fever. She has diabetes. History of sarcoma. TRAVEL OUTSIDE OF THE [place] IN LAST 30 DAYS: No - Related Data Allergies/Adverse Reactions: Penicillins Allergy (Severe, Verified 01/03/20 07:04) sulfamethoxazole [From Bactrim] Allergy (Severe, Verified 01/03/20 07:04) rash trimethoprim [From Bactrim] Allergy (Severe, Verified 01/03/20 07:04) rash Past Medical History - General Information source: Patient - Social History Smoking Status: Never Smoker Frequency of alcohol use: None Drug Abuse: None Family History: None, Hypertension - Past Medical History Cardiac Medical History: Reports: Hx Congestive Heart Failure, Hx Heart Attack - 2014, Hx Hypercholesterolemia, Hx Hypertension Denies: Hx Coronary Artery Disease, Hx DVT Pulmonary Medical History: Denies: Hx Asthma, Hx Bronchitis, Hx COPD, Hx Pneumonia Neurological Medical History: Denies: Hx Cerebrovascular Accident, Hx Seizures Endocrine Medical History: Reports: Hx Diabetes Mellitus Type 1, Hx Diabetes Mellitus Type 2 Renal/ Medical History: Reports: Hx End Stage Renal Disease. Denies: Hx Peritoneal Dialysis Malignancy Medical History: Reports: Hx Renal (Kidney) Cancer - s/p right nephrectomy September, GI Medical History: Reports: Hx Gastroesophageal Reflux Disease, Hx Hiatal Hernia. Denies: Hx Crohn's Disease, Hx Hepatitis, Hx Ulcer, Hx Ulcerative Colitis Musculoskeletal Medical History: Reports Hx Arthritis Skin Medical History: Denies Hx Psoriasis Psychiatric Medical History: Reports: Hx Depression Traumatic Medical History: Denies: Hx Traumatic Brain Injury Infectious Medical History: Denies: Hx C-Diff, Hx Hepatitis Past Surgical History: Reports: Hx Cardiac Catheterization - stent placement, Hx Cardiac Surgery - stent placement, Hx Cholecystectomy, Hx Coronary Stent - 2013, Hx Kidney (Renal Surgery) - R removal, Hx Orthopedic Surgery - left hand, left great toe amputation, Other - right nephrectomy for ca. Denies: Hx Hysterecto my, Hx Mastectomy, Hx Open Heart Surgery, Hx Pacemaker - Immunizations Hx Diphtheria, Pertussis, Tetanus Vaccination: Yes Hx Pneumococcal Vaccination: 07/11/13 Review of Systems - Review of Systems Notes: REVIEW OF SYSTEMS GEN: Denies fever, chills, weight loss ENT: Denies sore throat, nasal discharge, ear pain EYES: Denies blurry vision, eye pain, discharge CV: Denies chest pain, palpitations, edema RESP: Denies cough, shortness of breath, wheezing GI: Denies abdominal pain, nausea, vomiting, diarrhea MSK: Pain and redness right foot SKIN: Denies rash, skin lesions LYMPH: Denies swollen glands/lymph nodes NEURO: Denies headache, focal weakness or numbness, dizziness PSYCH: Denies depression, suicidal or homicidal ideation PHYSICAL EXAMINATION General: No acute distress, well-nourished Head: Atraumatic, normocephalic ENT: Mouth normal, oropharynx moist, no exudates or tonsillar enlargement Eyes: Conjunctiva normal, pupils equal, lids normal Neck: No JVD, supple, no guarding CVS: Normal rate, regular rhythm, no murmurs Resp: No resp distress, equal and normal breath sounds bilaterally GI: Nondistended, soft, no tenderness to palpation, no rebound or guarding Ext: Bilateral Charcot foot deformities. shallow diabetic foot ulcer on the medial portion of the right midfoot with about a centimeter ring of surrounding erythema. No purulence no tenderness no tracking or streaking. Back: No CVA or midline TTP Skin: No rash, warm Lymphatic: No lymphadeopathy noted Neuro: Awake, alert. Face symmetric. GCS 15. Physical Exam - Vital signs Vitals: Temp Pulse Resp BP Pulse Ox 97.9 F 90 18 139/96 H 95 03/04/20 11:12 03/04/20 11:12 03/04/20 11:12 03/04/20 11:12 03/04/20 11:12 Course - Re-evaluation Re-evalutation: 03/04/20 13:36 Cellulitis surrounding diabetic foot ulcer without signs of osteomyelitis or chronic infection or sepsis We will start oral antibiotics Doxy should cover all the necessary bugs including MRSA MSSA and gram-negative's. She looks well we outlined the wound a nd she can follow-up with primary care. X-ray does not show osteo-. Labs are unremarkable I have discussed with the patient there likely diagnosis, aftercare plan, follow-up plans and my usual and customary return precautions. They verbalized understanding of this. - Vital Signs Vital signs: Temp Pulse Resp BP Pulse Ox 97.9 F 84 16 119/73 97 03/04/20 11:12 03/04/20 12:40 03/04/20 12:40 03/04/20 12:40 03/04/20 12:40 - Laboratory Result Diagrams: 03/04/20 11:30 03/04/20 11:30 Laboratory results interpreted by me: 03/04/20 03/04/20 11:30 11:30 WBC 10.9 H RDW 14.6 H Sodium 134.6 L Chloride 93 L Carbon Dioxide 31 H BUN 21 H Creatinine 1.78 H Est GFR ( Amer) 36 L Est GFR (MDRD) Non-Af 29 L Glucose 379 H Direct Bilirubin 0.5 H C-Reactive Protein 14.8 H Discharge - Discharge Clinical Impression: Diabetic foot infection Condition: Good Disposition: HOME, SELF-CARE Instructions: Antibiotic Ointment Protection ([facility]), Cellulitis ([facility]), Soap Cleansing ([facility]) Prescriptions: Doxycycline Hyclate 100 mg PO BID #20 tablet.dr Referrals: EMILIANO DELGADO MD [Primary Care Provider] - Follow up in 3-5 days (For a wound check, we have outlined the wound)
--- NOTE | 2020-03-04 12:19 | RADIOLOGY REPORT (SQ) ---
EXAM DESCRIPTION: FOOT RIGHT COMPLETE IMAGES COMPLETED DATE/TIME: 03/04/2020 12:04 pm REASON FOR STUDY: Diabetic ulcer medial aspect, r/o osteo COMPARISON: None. NUMBER OF VIEWS: Three views. TECHNIQUE: AP, lateral and oblique without weight bearing radiographic images acquired of the right foot. LIMITATIONS: None. FINDINGS: MINERALIZATION: Normal. BONES: No acute fracture or dislocation. No worrisome bone lesions. Large plantar calcaneal spur. Ir regularity of the navicular with fragmentation. JOINTS: No erosions. No riki-articular osteopenia. No chondrocalcinosis. SOFT TISSUES: Medial soft tissue swelling. No calcifications. OTHER: No other significant finding. IMPRESSION: SOFT TISSUE SWELLING. IRREGULARITY OF THE NAVICULAR WITH FRAGMENTATION. MOST CONSISTEN T WITH NEUROPATHIC CHARCOT JOINT. SUPERIMPOSED OSTEOMYELITIS CANNOT BE EXCLUDED. TECHNICAL DOCUMENTATION: JOB ID: [id number] 2010 [employer]- All Rights Reserved Reading location - IP/workstation name: [email or web address]
[2020-03-04 12:43] VITALS: BP 119/73
== END 2020-03-04 12:40 | disposition home or self-care (01) ==
LOC: ER 11:07
DX: L03.115 Cellulitis of right lower limb (principal); E11.621 Type 2 diabetes mellitus with foot ulcer; L97.419 Non-pressure chronic ulcer of right heel and midfoot with unspecified severity; A52.16 Charcot's arthropathy (tabetic); I10 Essential (primary) hypertension; I25.2 Old myocardial infarction; Z85.528 Personal history of other malignant neoplasm of kidney; Z90.5 Acquired absence of kidney; Z95.5 Presence of coronary angioplasty implant and graft; Z88.0 Allergy status to penicillin; Z88.1 Allergy status to other antibiotic agents
CPT/HCPCS: 36415; 80053; 85025; 86140; 99284

== ENCOUNTER → 2020-03-24 | Outpatient (CLI) | payer MEDICARE, MEDICAID ==
--- NOTE | 2020-03-25 15:09 | RADIOLOGY REPORT (SQ) ---
EXAM DESCRIPTION: ARTERIAL LOWER EXTREM BILAT IMAGES COMPLETED DATE/TIME: 03/24/2020 3:04 pm REASON FOR STUDY: ATHEROSCLEROSIS I70.233 ATHSCL [place] ARTERIES OF RIGHT LEG W ULCERATION OF COMPARISON: None. TECHNIQUE: Dynamic and static briggs scale and color images acquired of the lower extremity arteries. Additional selected spectral images recorded. LIMITATIONS: None. FINDINGS: RIGHT LEG: INFLOW ARTERIES: Normal, no obstruction evident. FEMORAL ARTERIES:Multiphasic waveforms. Normal, no velocity elevation to suggest focal stenosis. Norm al color Doppler evaluation. No aneurysm. POPLITEAL ARTERY:Multiphasic waveforms. Normal, no velocity elevation to suggest focal stenosis. Norm al color Doppler evaluation. No aneurysm. PATENT TIBIOPERONEAL TRUNK AND 3 VESSEL RUNOFF: Yes. OTHER: No other significant finding. LEFT LEG: INFLOW ARTERIES: Normal, no obstruction evident. FEMORAL ARTERIES:Multiphasic waveforms. Normal, no velocity elevation to suggest focal stenosis. Norm al color Doppler evaluation. No aneurysm. POPLITEAL ARTERY:Multiphasic waveforms. Normal, no velocity elevation to suggest focal stenosis. Norm al color Doppler evaluation. No aneurysm. PATENT TIBIOPERONEAL TRUNK AND 3 VESSEL RUNOFF: Yes. OTHER: No other significant finding. IMPRESSION: No significant stenosis. TECHNICAL DOCUMENTATION: JOB ID: [id number] 2010 [employer]- All Rights Reserved Reading location - IP/workstation name: [email or web address]
== END ==
LOC: SP 13:59
PROVIDERS: ATTEND Internal Medicine
DX: I70.233 Atherosclerosis of native arteries of right leg with ulceration of ankle (principal)
CPT/HCPCS: 93925

== ENCOUNTER 2020-06-09 06:28 | Day surgery (SDC) | payer MEDICARE, MEDICAID ==
[2020-06-09] MEDS ORDERED: ONABOTULINUMTOXINA INJ/PF 100 UNIT SDV IJ PRN (07:02)
[2020-06-09] MEDS ORDERED: PROPOFOL INJ 200 MG/20 ML VIAL IV ONE (07:20)
[2020-06-09 08:54] VITALS: BP 134/50
--- NOTE | 2020-06-09 09:07 | Operative Report ---
Operative Report DATE OF SURGERY: 06/09/20 Operative Report: The risks benefits and alternatives of the procedure explained to the patient in detail and informed consent is obtained.A GIF Olympus video scope was inserted into the patient's mouth and hypopharynx, the esophagus is identified intubated and insufflated, the scope was then advanced through the esophagus stomach and duodenum, retroflexion maneuver is done, the esophagus stomach and first and second portions of the duodenum examined PREOPERATIVE DIAGNOSIS: Nausea vomiting, gastroparesis POSTOPERATIVE DIAGNOSIS: Gastritis status post biopsy. Status post Botox injection 100 units in 4 mL at the gastric outlet OPERATION: EGD with submucosal injection. EGD with biopsy SURGEON: SHENG PIMENTEL ANESTHESIA: LMAC TISSUE REMOVED OR ALTERED: As noted above. COMPLICATIONS: None. ESTIMATED BLOOD LOSS: None. INTRAOPERATIVE FINDINGS: As noted above. PROCEDURE: Patient tolerated the procedure well. No immediate postprocedure complications are noted. Patient is discharged in good condition. Discharge date 06/09/2020. Discharge diet: Regular. Discharge activity: Regular. 2 to 3-week follow-up to discuss findings. Patient is instructed to call the office or proceed to the emergency room should there be any further problems or questions. Wait on the pathology.
== END 2020-06-09 09:00 | disposition home or self-care (01) ==
LOC: END 06:28
PROVIDERS: ATTEND Internal Medicine Gastroenterology
DX: K29.50 Unspecified chronic gastritis without bleeding (principal); E11.22 Type 2 diabetes mellitus with diabetic chronic kidney disease; I12.9 Hypertensive chronic kidney disease with stage 1 through stage 4 chronic kidney disease, or unspecified chronic kidney disease; N18.4 Chronic kidney disease, stage 4 (severe); E66.9 Obesity, unspecified; G47.33 Obstructive sleep apnea (adult) (pediatric); K21.9 Gastro-esophageal reflux disease without esophagitis; Z79.899 Other long term (current) drug therapy; Z79.82 Long term (current) use of aspirin; Z79.4 Long term (current) use of insulin; Z95.1 Presence of aortocoronary bypass graft; Z86.73 Personal history of transient ischemic attack (TIA), and cerebral infarction without residual deficits; Z85.528 Personal history of other malignant neoplasm of kidney; Z90.5 Acquired absence of kidney
CPT/HCPCS: 43236; 43239; 82962; 88305 ×2; J2704; J0585; 731; 88342

== ENCOUNTER 2020-08-03 19:41 | Emergency (ER) | payer MEDICARE, MEDICAID ==
[2020-08-03 20:16] LABS: ABSOLUTE BASOPHILS # (AUTO) 0.1 10^3/uL (0.0-0.2); ABSOLUTE EOSINOPHILS # (AUTO) 0.4 10^3/uL (0.0-0.6); ABSOLUTE LYMPHOCYTES (AUTO) 3.4 10^3/uL (0.5-4.7); ABSOLUTE MONOCYTES (AUTO) 0.6 10^3/uL (0.1-1.4); ABSOLUTE NEUT (AUTO) 6.1 10^3/uL (1.7-8.2); BASOPHILS % (AUTO) 0.8 % (0-2); EOSINOPHILS % (AUTO) 3.8 % (0-6); HEMATOCRIT 34.3 % (36.0-47.0); HEMOGLOBIN 11.4 g/dL (12.0-15.5); LYMPHOCYTES % (AUTO) 32.1 % (13-45); MEAN CORPUSCULAR HEMOGLOBIN 27.3 pg (27.0-33.4); MEAN CORPUSCULAR HGB CONC 33.2 g/dL (32.0-36.0); MEAN CORPUSCULAR VOLUME 82 fl (80-97); MONOCYTES % (AUTO) 5.5 % (3-13); PLATELET COUNT 354 10^3/uL (150-450); RED BLOOD COUNT 4.17 10^6/uL (3.72-5.28); RED CELL DISTRIBUTION WIDTH 14.1 % (11.5-14.0); SEGMENTED NEUTROPHILS % (AUTO) 57.8 % (42-78); TOTAL CELLS COUNTED % (AUTO) 100 %; WHITE BLOOD COUNT 10.5 10^3/uL (4.0-10.5)
[2020-08-03 20:37] LABS: ALBUMIN 3.7 g/dL (3.5-5.0); ALKALINE PHOSPHATASE 99 U/L (38-126); ANION GAP 9 (5-19); ASPARTATE AMINO TRANSFERASE 19 U/L (14-36); BILIRUBIN,DIRECT 0.4 mg/dL (0.0-0.4); BILIRUBIN,TOTAL 0.4 mg/dL (0.2-1.3); BLOOD UREA NITROGEN 53 mg/dL (7-20); CALCIUM 9.1 mg/dL (8.4-10.2); CARBON DIOXIDE 33 mmol/L (22-30); CHLORIDE 88 mmol/L (98-107); POTASSIUM 3.4 mmol/L (3.6-5.0); TOTAL PROTEIN 7.4 g/dL (6.3-8.2)
[2020-08-03 20:46] LABS: APPEARANCE,URINE CLEAR; BILIRUBIN,URINE NEGATIVE (NEGATIVE); COLOR,URINE STRAW; GLUCOSE, URINE >=500 mg/dL (NEGATIVE); KETONES,URINE NEGATIVE (NEGATIVE); LEUKOCYTE ESTERASE,URINE NEGATIVE (NEGATIVE); NITRITE,URINE NEGATIVE (NEGATIVE); PROTEIN,URINE NEGATIVE (NEGATIVE); URINE SPECIFIC GRAVITY 1.009; UROBILINOGEN,URINE NEGATIVE mg/dL (<2.0)
[2020-08-03 20:55] LABS: GLUCOSE 438 mg/dL (75-110)
--- NOTE | 2020-08-03 21:20 | EKG REPORT ---
SEVERITY:- ABNORMAL ECG - SINUS RHYTHM FIRST DEGREE AV BLOCK LVH WITH IVCD, LAD AND SECONDARY REPOL ABNRM LAFB : Confirmed by: Willy Douglass MD 03-Aug-2020 21:20:14
[2020-08-04] MEDS ORDERED: INSULIN REG, HUMAN 100 UNIT/ML 3 ML VIAL (PYX) SUBCUT ONE (00:28)
--- NOTE | 2020-08-04 01:02 | RADIOLOGY REPORT (SQ) ---
CLINICAL HISTORY: dizzy COMPARISON: 05/11/2018. TECHNIQUE: CT HEAD WITHOUT IV CONTRAST on 08/04/2020 12:18 AM DEVELOPMENT AND HOUSING DIRECTOR This exam was performed according to our departmental dose-optimization program, which includes automated exposure control, adjustment of the mA and/or kV according to patient size and/or use of iterative reconstruction technique. FINDINGS: There is no acute hemorrhage, mass effect or midline shift. Morris-white differentiation is preserved. There is no hydrocephalus. There is no significant volume loss for age. The calvarium is intact. Orbits and globes are unremarkable. The paranasal sinuses are clear. Mastoid air cells are clear. IMPRESSION: No acute intracranial findings.
[2020-08-04] MEDS ORDERED: MECLIZINE HCL 25 MG TABLET PO ONE (01:22)
[2020-08-04] MEDS ORDERED: NITROFURANTOIN MONOHYD/M-CRYST 100 MG CAPSULE PO ONE (02:21)
[2020-08-04 02:31] VITALS: BP 114/58
--- NOTE | 2020-08-04 02:47 | ER Document Report ---
ED Blood Sugar Problem - General Chief Complaint: High Blood Sugar Stated Complaint: HYPERGLYCEMIA Time Seen by Provider: 08/04/20 00:05 Primary Care Provider: EMILIANO DELGADO MD [Primary Care Provider] - Follow up tomorrow TRAVEL OUTSIDE OF THE [place] IN LAST 30 DAYS: No - HPI Notes: Patient is a 59-year-old female with a past medical history of diabetes on insulin, Charcot foot who presents with dizziness and high blood sugar. Patient states that she took her blood sugar today and it was in the 500s. She states she has not missed any insulin doses. She also states she has been dizzy for about a week and a half. She states it is worse with moving her eyes. She has not fallen. She normally ambulates only a few short steps due to the Charcot foot and uses a walker. She denies any headaches. No vision changes. No chest pain or shortness of breath. No abdominal pain. She does mention some dysuria. - Related Data Allergies/Adverse Reactions: Penicillins Allergy (Severe, Verified 06/09/20 07:00) sulfamethoxazole [From Bactrim] Allergy (Severe, Verified 06/09/20 07:00) rash trimethoprim [From Bactrim] Allergy (Severe, Verified 06/09/20 07:00) rash Past Medical History - General Information source: Patient - Social History Smoking Status: Current Every Day Smoker Family History: None, Hypertension - Past Medical History Cardiac Medical History: Reports: Hx Congestive Heart Failure, Hx Coronary Artery Disease, Hx Heart Attack - 2014, Hx Hypercholesterolemia, Hx Hypertension Denies: Hx DVT Pulmonary Medical History: Denies: Hx Asthma, Hx Bronchitis, Hx COPD, Hx Pneumonia Neurological Medical History: Denies: Hx Cerebrovascular Accident, Hx Seizures Endocrine Medical History: Reports: Hx Diabetes Mellitus Type 1, Hx Diabetes Mellitus Type 2 Renal/ Medical History: Reports: Hx End Stage Renal Disease. Denies: Hx Peritoneal Dialysis Malignancy Medical History: Reports: Hx Renal (Kidney) Cancer - s/p right nephrectomy September, GI Medical History: Reports: Hx Gastroesophageal Reflux Disease, Hx Hiatal Hernia. Denies: Hx Crohn's Disease, Hx Hepatitis, Hx Ulcer, Hx Ulcerative Colitis Musculoskeletal Medical History: Reports Hx Arthritis Skin Medical History: Denies Hx Psoriasis Psychiatric Medical History: Reports: Hx Depression Traumatic Medical History: Denies: Hx Traumatic Brain Injury Infectious Medical History: Denies: Hx C-Diff, Hx Hepatitis Past Surgical History: Reports: Hx Cardiac Catheterization - stent placement, Hx Cardiac Surgery - stent placement, Hx Cholecystectomy, Hx Coronary Stent - 2013, Hx Kidney (Renal Surgery) - R removal, Hx Orthopedic Surgery - left hand, left great toe amputation, Other - right nephrectomy for ca. Denies: Hx Hysterectomy, Hx Mastectomy, Hx Open Heart Surgery, Hx Pacemaker - Immunizations Hx Diphtheria, Pertussis, Tetanus Vaccination: Yes Hx Pneumococcal Vaccination: 07/11/13 Review of Systems - Review of Systems Notes: CONSTITUTIONAL: No fever, fatigue or weight loss. SKIN: No rash. HENT: No congestion, ear pain, or sore throat. EYES: No recent vision problems or eye pain. CARDIOVASCULAR: No chest pain or edema. RESPIRATORY: No cough, shortness of breath, congestion, or wheezing. GASTROINTESTINAL: No abdominal pain, nausea, vomiting, bloody stools or diarrhea. GENITOURINARY: Positive for dysuria. MUSCULOSKELETAL: No joint pain or swelling. NEUROLOGIC: No seizures. No headache, focal weakness or sensory changes. Positive for dizziness. HEMATOLOGIC: No unusual bruising or bleeding. PSYCHIATRIC: No depression or anxiety. Physical Exam - Vital signs Vitals: Resp Pulse Ox 16 94 08/03/20 19:42 08/03/20 19:42 - General General appearance: Appears well In distress: None Notes: VITAL SIGNS: Within normal limits. GENERAL: No acute distress, non-toxic appearance. HEAD: Normal with no signs of head trauma. EYES: EOMI, conjunctiva normal, no discharge. No nystagmus. EARS: Hearing grossly intact. NOSE: Normal. NECK: Normal range of motion, no tenderness, supple. CHEST: Clear breath sounds bilaterally. No wheezes, rales, or rhonchi. CARDIAC: Regular rate and rhythm. VASCULAR: No Edema. ABDOMEN: Normal and soft. Obese. GENITOURINARY: Normal, No tenderness MUSCULOSKELETAL: Bilateral Charcot foot. Well-healing ulcer to right medial ankle. No sign of infection. No erythema. NEUROLOGICAL: Alert and oriented x 3. No focal sensory or strength deficits. Speech normal. Follows commands appropriately. PSYCHIATRIC: Normal Affect, judgement and mood. SKIN: Normal appearance with no rashes or lesions. Course - Re-evaluation Re-evalutation: 08/04/20 02:55 Patient appears well on exam. She does wear a CPAP at night due to sleep apnea. Otherwise, she is on room air and O2 saturations are in the high to mid 90s. Patient mentions that she has been dizzy for a week and a half. I did obtain a CT head which was negative. Patient was given meclizine and she states she feels much better. He was given insulin fluids. There is no evidence of DKA. Patient was told to make sure she keeps a close eye on her sugars and takes her insulin as directed. I told her that she needs to call her doctor first thing in the morning for follow-up. Patient is very agreeable to this plan. She does have some dysuria and +1 bacteria on her UA. I will send a urine culture as well start her on Macrobid. - Vital Signs Vital signs: Temp Pulse Resp BP Pulse Ox 97.8 F 17 114/58 L 96 08/03/20 19:43 08/04/20 02:01 08/04/20 02:01 08/04/20 02:01 - Laboratory Results Result Diagrams: 08/03/20 20:00 08/03/20 20:00 Laboratory Results Interpreted: 08/03/20 08/03/20 08/03/20 20:00 20:00 20:25 Hgb 11.4 L Hct 34.3 L RDW 14.1 H Sodium 130.0 L Potassium 3.4 L Chloride 88 L Carbon Dioxide 33 H BUN 53 H Creatinine 2.52 H Est GFR ( Amer) 24 L Est GFR (MDRD) Non-Af 20 L Glucose 438 H* POC Glucose Urine Glucose (UA) >=500 H 08/04/20 08/04/20 00:21 01:46 Hgb Hct RDW Sodium Potassium Chloride Carbon Dioxide BUN Creatinine Est GFR ( Amer) Est GFR (MDRD) Non-Af Glucose POC Glucose 372 H 372 H Urine Glucose (UA) Critical Laboratory Results Reviewed: Yes Attending or Supervising Physician who Reviewed Labs: HEATHER DUTTA - Radiology Results Critical Radiology Results Reviewed: No Critical Results Discharge - Discharge Clinical Impression: Dizziness, Hyperglycemia Urinary tract infection Qualifiers: Urinary tract infection type: site unspecified Hematuria presence: without hematuria Qualified Code(s): N39.0 - Urinary tract infection, site not specified Condition: Stable Disposition: HOME, SELF-CARE Instructions: Hyperglycemia ([facility]), Urinary Tract Infection ([facility]) Additional Instructions: Your work-up today is reassuring. Please take your blood sugar regularly and your insulin as prescribed. Your head CT was negative. You were given a dose of meclizine which helped her dizziness. I will write you a prescription for this. I will also write you a prescription for antibiotics for a UTI. Please call your doctor in the morning for follow-up. Return to the ER immediately for any worsening symptoms. Prescriptions: Meclizine HCl [Antivert 12.5 mg Tablet] 12.5 mg PO BID PRN #14 tab PRN Reason: Nitrofurantoin Monohyd/M-Cryst [Macrobid 100 mg Capsule] 100 mg PO BID 5 Days #10 cap Referrals: EMILIANO DELGADO MD [Primary Care Provider] - Follow up tomorrow
--- OUTSIDE RECORDS SUMMARY | 2020-08-06 09:15 | XMS REPORT ---
:1960 [facility] [address] [place] [address] Care Team Providers Name Role Phone Shaneka Beltran Primary Care Physician Unavailable Allergies, Adverse Reactions, Alerts Allergy Allergy Status Severity Reaction(s) Onset Inactive Treating C omments Name Type Date Date Clinician Bactrim Bactrim Active anaphylaxis 2020-0 7-02 00:00: 00 Bactrim Bactrim Inactive anaphylaxis 2020-0 4-16 00:00: 00 PENICILLINS Miscellane Active Unknown <Not 2020-0 ous Supplied> 3-30 allergy (severe) 00:00: 00 TRIMETHOPRI Drug Active Unknown rash 2020-0 M, allergy (severe) 3-30 MICRONIZED 00:00: 00 SULFAMETHOX Drug Active Unknown rash 2020-0 AZOLE allergy (severe) 3-30 00:00: 00 Bactrim Bactrim Inactive anaphylaxis 2020-0 1-16 00:00: 00 Bactrim Bactrim Inactive anaphylaxis 2020-0 1-02 00:00: 00 Bactrim Bactrim Inactive anaphylaxis 2019- 2-02 00:00: 00 Bactrim Bactrim Inactive anaphylaxis 2019-1 1-06 00:00: 00 Penicillins Allergy to Active Edema 1972-0 substance 1- 00:00: 00 Bactrim Allergy to Active Anaphylaxis substance Medications Ordered Filled Start Stop Current Ordering Indication Dosage Frequency Signature Comments Components Medication Medication Date Date Medication? Clinician (SIG) Name Name Macrobid 2020-0 2020- No BID 1 capsule 100 MG 818 08-25 twice a 00:00: 00:00 day with 00 :00 food Orally Twice a day FreeStyle 2020-0 No as Joanne 7-24 directed Sensor 00:00: in vitro System - 00 up to three times a day Rybelsus 7 Yes QD 1 tablet MG -02 at least 00:00: 30 minutes 00 before first food, beverage or other oral medicine of the day Orally Once a day Tresiba No as FlexTouch 4-27 directed 100 UNIT/ML 00:00: Subcutaneo 00 us 80 units once a day Zofran 4 MG No QD 1 tablet 4-21 Orally 00:00: Once a day 00 Famotidine No BID 1 tablet 20 MG 4-10 at bedtime 00:00: as needed 00 Orally Twice a day Reglan 5 MG No BID 1 tablet 1-02 before 00:00: meals 00 Orally Twice a day Promethazin No QID 1 tablet e HCl 12.5 07-12 as needed MG 00:00: 00:00 Orally 00 :00 every 6 hrs Ciprofloxac 2018-07- No BID 1 tablet in HCl 500 08-12 Orally MG 00:00: 00:00 every 12 00 :00 hrs cyanocobala 0 No Q24H cyanocobal min (vit 2-14 li (vit B-12) 100 00:00: B-12) 100 mcg tablet 00 mcg tablet every 24 every 24 hours by hours by oral route. oral route. Alcohol No 1pad(s) QID Alcohol Prep Pads Prep Pads 1 pad 4 1 pad 4 times a day times a by topical day by route. topical route. alprazolam No BID alprazolam 0.25 mg 0.25 mg tablet tablet twice a day twice a by oral day by route. oral route. alprazolam No alprazolam 0.5 mg 0.5 mg tablet 1 tablet 1 tablet po tablet po PRN PRN Apidra No Apidra SoloStar SoloStar U-100 U-100 Insulin 100 Insulin unit/mL 100 subcutaneou unit/mL s pen SC subcutaneo UNITS us pen SC ACCORDING UNITS TO HIGH ACCORDING DOSE TO HIGH SLIDING DOSE SCALE AC & SLIDING HS SCALE AC & HS aspirin 325 No aspirin mg 325 mg tablet,kenia tablet,del yed release ayed TAKE 1 release TABLET BY TAKE 1 MOUTH EVERY TABLET BY DAY MOUTH EVERY DAY atorvastati No atorvastat n 80 mg in 80 mg tablet Take tablet 1 tablet Take 1 every day tablet by oral every day route for by oral 30 days. route for 30 days. Belsomra 15 No Belsomra mg tablet 1 15 mg tablet po tablet 1 qd tablet po qd calcitriol No calcitriol 0.25 mcg 0.25 mcg capsule 1 capsule 1 capsule po capsule po qd qd clopidogrel No clopidogre 75 mg l 75 mg tablet Take tablet 1 tablet Take 1 every day tablet by oral every day route as by oral directed. route as directed. cyclobenzap No cyclobenza rine 10 mg ryan 10 tablet Take mg tablet 1 tablet Take 1 every day tablet by oral every day route in by oral the route in evening. the evening. Dexilant 60 No Dexilant mg capsule, 60 mg delayed capsule, release 1 delayed capsule po release 1 qd capsule po qd DILT-XR 120 No DILT-XR mg capsule, 120 mg extended capsule, release extended release doxycycline No doxycyclin hyclate 100 e hyclate mg capsule 100 mg 1 capsule capsule 1 po BID capsule po until BID until completed completed famotidine No famotidine 20 mg 20 mg tablet tablet famotidine No famotidine 40 mg 40 mg tablet tablet ferrous No BID ferrous sulfate 325 sulfate mg (65 mg 325 mg (65 iron) mg iron) tablet tablet twice a day twice a by oral day by route. oral route. fluoxetine No fluoxetine 20 mg 20 mg capsule capsule Take 1 Take 1 capsule capsule every day every day by oral by oral route as route as directed. directed. furosemide No furosemide 40 mg 40 mg tablet tablet gabapentin No gabapentin 600 mg 600 mg tablet Take tablet 1 tablet 3 Take 1 times a day tablet 3 by oral times a route for day by 30 days. oral route for 30 days. Zaleplon 5 No QD 1 capsule MG at bedtime as needed Orally Once a day Aspirin 325 Yes QD 1 tablet MG Orally Once a day Humalog No Humalog KwikPen KwikPen (U-100) (U-100) Insulin 100 Insulin unit/mL 100 subcutaneou unit/mL s subcutaneo us Prozac 20 No BID 1 capsule MG in the morning Orally twice a day Oxycodone No QID 1 tablet HCl 7.5 MG Orally every 6 hrs Nitrofurant No QD 1 capsule oin with food Macrocrysta or milk l 50 MG Orally Once a day Lisinopril No QD 1 tablet 10 MG Orally Once a day Ondansetron No TID 1 tablet 4 MG on the tongue and allow to dissolve Orally every 8 hrs hydralazine No hydralazin 25 mg e 25 mg tablet Take tablet 1 tablet Take 1 every day tablet by oral every day route as by oral directed route as for 90 directed days. for 90 days. Fluoxetine Yes QD 2 capsules HCl 40 mg Orally Once a day Ergocalcife No 1 capsule rol 20395 Orally UNIT once a week Ondansetron No BID 1 tablet HCl 4 MG Orally Twice a day Belsomra 10 No QD 1 tablet MG at bedtime as needed Orally Once a day Diltiazem Yes QD 1 capsule HCl ER 120 Orally MG Once a day Docusate Yes QD 1 capsule Sodium 100 as needed MG Orally Once a day isosorbide No isosorbide mononitrate mononitrat ER 30 mg e ER 30 mg tablet,exte tablet,ext nded ended release 24 release 24 hr Take 1 hr Take 1 tablet tablet every day every day by oral by oral route for route for 90 days. 90 days. ketoconazol No ketoconazo e 2 % le 2 % topical topical cream cream levocetiriz No levocetiri ine 5 mg zine 5 mg tablet Take tablet 1 tablet Take 1 every day tablet by oral every day route as by oral needed for route as 30 days. needed for 30 days. lidocaine 5 No lidocaine % topical 5 % patch topical patch lisinopril No lisinopril 20 mg 20 mg tablet TAKE tablet 1 TABLET BY TAKE 1 MOUTH EVERY TABLET BY DAY MOUTH EVERY DAY metoclopram No metoclopra abigail 10 mg mide 10 mg tablet tablet metoclopram No metoclopra abigail 5 mg mide 5 mg tablet TAKE tablet 1 TABLET BY TAKE 1 MOUTH TWICE TABLET BY DAILY MOUTH BEFORE TWICE MEALS(BREAK DAILY FAST AND BEFORE DINNER) MEALS(JEFFREY KFAST AND DINNER) metolazone No metolazone 2.5 mg 2.5 mg tablet tablet metoprolol No metoprolol succinate succinate ER 100 mg ER 100 mg tablet,exte tablet,ext nded ended release 24 release 24 hr Take 1 hr Take 1 tablet tablet every day every day by oral by oral route as route as directed directed for 90 for 90 days. days. metronidazo No metronidaz le 500 mg ole 500 mg tablet tablet aripiprazol No 1 Q1D aripiprazo e 2 mg le 2 mg tablet Take tablet 1 tablet Take 1 every day tablet by oral every day route for by oral 90 days. route for 90 days. bupropion No 1 Q1D bupropion HCl XL 150 HCl XL 150 mg 24 hr mg 24 hr tablet, tablet, extended extended release release Take 1 Take 1 tablet tablet every day every day by oral by oral route. route. furosemide No 1 Q1D furosemide 20 mg 20 mg tablet Take tablet 1 tablet Take 1 every day tablet by oral every day route in by oral the route in morning. the morning. levofloxaci No 1 Q1D levofloxac n 250 mg in 250 mg tablet Take tablet 1 tablet Take 1 every day tablet by oral every day route as by oral directed route as for 5 days. directed for 5 days. Tresiba No Tresiba FlexTouch FlexTouch U-100 SC 50 U-100 SC UNITS TWICE 50 UNITS A DAY TWICE A DAY ciprofloxac No 1 Q12H ciprofloxa in 250 mg alex 250 mg tablet Take tablet 1 tablet Take 1 every 12 tablet hours by every 12 oral route hours by for 7 days. oral route for 7 days. fluoxetine No 1 TID fluoxetine 20 mg 20 mg tablet Take tablet 1 tablet 3 Take 1 times a day tablet 3 by oral times a route as day by directed oral route for 90 as days. directed for 90 days. Phenergan No 1suppos TID Phenergan 12.5 mg itor(y/ 12.5 mg rectal ies) rectal suppository suppositor Insert 1 y Insert 1 suppository suppositor 3 times a y 3 times day by a day by rectal rectal route as route as needed for needed for 30 days. 30 days. aripiprazol No 1 Q1D aripiprazo e 5 mg le 5 mg tablet Take tablet 1 tablet Take 1 every day tablet by oral every day route in by oral the morning route in for 30 the days. morning for 30 days. Motegrity 2 No Motegrity mg tablet 2 mg tablet DOK 100 mg No DOK 100 mg capsule capsule TAKE TWO TAKE TWO CAPSULES BY CAPSULES MOUTH AT BY MOUTH BEDTIME AT BEDTIME promethazin No promethazi e 12.5 mg ne 12.5 mg rectal rectal suppository suppositor Insert 1 y Insert 1 suppository suppositor 3 times a y 3 times day by a day by rectal rectal route as route as needed for needed for 30 days. 30 days. Aspirin Low No 1 Q1D Aspirin Dose 81 mg Low Dose tablet,kenia 81 mg yed release tablet,del Take 1 ayed tablet release every day Take 1 by oral tablet route. every day by oral route. ciprofloxac No 1 BID ciprofloxa in 500 mg alex 500 mg tablet Take tablet 1 tablet Take 1 twice a day tablet by oral twice a route for 7 day by days. oral route for 7 days. diclofenac No diclofenac 1 % topical 1 % gel APPLY 4 topical GRAM TO THE gel APPLY AFFECTED 4 GRAM TO AREA(S) BY THE TOPICAL AFFECTED ROUTE 3 AREA(S) BY TIMES PER TOPICAL DAY ROUTE 3 TIMES PER DAY metoprolol No 1 Q1D metoprolol tartrate tartrate 100 mg 100 mg tablet Take tablet 1 tablet Take 1 every day tablet by oral every day route. by oral route. ranolazine No ranolazine ER 500 mg ER 500 mg tablet,exte tablet,ext nded ended release,12 release,12 hr hr sulfamethox No 1 BID sulfametho azole 400 xazole 400 mg-trimetho mg-trimeth prim 80 mg oprim 80 tablet Take mg tablet 1 tablet Take 1 twice a day tablet by oral twice a route for 7 day by days. oral route for 7 days. Afluria No Afluria Quad Quad [id number] 60 mcg (15 60 mcg (15 mcg x mcg x 4)/0.5 mL 4)/0.5 mL intramuscul intramuscu ar susp. lar susp. Zofran 4 mg No 1 BID Zofran 4 tablet Take mg tablet 1 tablet Take 1 twice a day tablet by oral twice a route as day by needed. oral route as needed. mupirocin 2 No mupirocin % topical 2 % ointment topical ointment nitroglycer No nitroglyce in 0.2 rin 0.2 mg/hr mg/hr transdermal transderma 24 hour l 24 hour patch patch UNWRAP AND UNWRAP AND APPLY 1 APPLY 1 PATCH ONCE PATCH ONCE DAILY, DAILY, LEAVE ON LEAVE ON FOR 12-14 FOR 12-14 HOURS(WAIT HOURS(WAIT 10-12 HOURS 10-12 BEFORE NEXT HOURS PATCH) BEFORE NEXT PATCH) nitroglycer No nitroglyce in 0.3 mg rin 0.3 mg sublingual sublingual tablet tablet Place [address] 1 tablet tablet every day every day by by sublingual sublingual route as route as needed. needed. Novolog No Novolog Flexpen Flexpen U-100 U-100 Insulin Insulin aspart 100 aspart 100 unit/mL (3 unit/mL (3 mL) mL) subcutaneou subcutaneo s Use 5 us Use 5 units with units with each meal each meal in addition in to sliding addition scale to sliding insulin scale requirement insulin . requiremen t. omeprazole No omeprazole 40 mg 40 mg capsule,del capsule,de ayed layed release release TAKE ONE TAKE ONE CAPSULE BY CAPSULE BY MOUTH EVERY MOUTH DAY AT EVERY DAY BEDTIME AT BEDTIME ondansetron No ondansetro 8 mg n 8 mg disintegrat disintegra ing tablet ting tablet ondansetron No ondansetro HCl 8 mg n HCl 8 mg tablet tablet oxycodone 5 No oxycodone mg tablet 5 mg tablet oxycodone-a No oxycodone- cetaminophe acetaminop n 10 mg-325 hen 10 mg tablet mg-325 mg tablet oxycodone-a No oxycodone- cetaminophe acetaminop n 5 mg-325 hen 5 mg tablet mg-325 mg TAKE 1- 2 tablet TABLETS BY TAKE 1- 2 OR[address] ROUTE TABLETS BY DAILY PRN ORAL ROUTE FOR SEVERE DAILY PRN PAIN FOR SEVERE PAIN oxycodone-a No oxycodone- cetaminophe acetaminop n 7.5 hen 7.5 mg-325 mg mg-325 mg tablet tablet Prevalite 4 No Prevalite gram powder 4 gram for susp in powder for a packet susp in a packet promethazin No promethazi e 12.5 mg ne 12.5 mg tablet tablet Ranexa 500 No Ranexa 500 mg mg tablet,exte tablet,ext nded ended release release Take 1 Take 1 tablet tablet twice a day twice a by oral day by route as oral route directed as for 30 directed days. for 30 days. ranitidine No ranitidine 150 mg 150 mg capsule capsule Take 1 Take 1 capsule 30 capsule 30 mins before mins breakfast before and at breakfast bedtime and at bedtime ranitidine No ranitidine 150 mg 150 mg tablet tablet Rexulti 1 No Rexulti 1 mg tablet mg tablet Rexulti 2 No Rexulti 2 mg tablet mg tablet Rexulti 3 No Rexulti 3 mg tablet mg tablet rosuvastati No rosuvastat n 40 mg in 40 mg tablet tablet Rybelsus 7 No Rybelsus 7 mg tablet mg tablet SSD 1 % No SSD 1 % topical topical cream cream Synjardy XR No Synjardy 25 mg-1,000 XR 25 mg tablet, mg-1,000 extended mg tablet, release extended release tizanidine No tizanidine 2 mg tablet 2 mg tablet topiramate No BID topiramate 25 mg 25 mg tablet tablet twice a day twice a by oral day by route. oral route. torsemide No torsemide 20 mg 20 mg tablet tablet Tradjenta 5 No Tradjenta mg tablet 5 mg TAKE 1 tablet TABLET BY TAKE 1 MOUTH EVERY TABLET BY DAY MOUTH EVERY DAY trazodone No trazodone 100 mg 100 mg tablet tablet trazodone No trazodone 50 mg 50 mg tablet tablet Tresiba No 70unit( Q24H Tresiba FlexTouch s) FlexTouch U-100 U-100 insulin 100 insulin unit/mL (3 100 mL) unit/mL (3 subcutaneou mL) s pen 70 subcutaneo units every us pen 70 24 hours by units sub-q every 24 route. hours by sub-q route. Tresiba No Tresiba FlexTouch FlexTouch U-200 U-200 insulin 200 insulin unit/mL (3 200 mL) unit/mL (3 subcutaneou mL) s pen subcutaneo us pen Vascepa 1 No Vascepa 1 gram gram capsule capsule Victoza No Victoza 3-Thong 0.6 3-Thong 0.6 mg/0.1 mL mg/0.1 mL (18 mg/3 (18 mg/3 mL) mL) subcutaneou subcutaneo s pen us pen injector injector Problems Condition Condition Condition Status Onset Resolution Last Treatin g Comments Name Details Category Date Date Treatment Clinician Date Body mass Body mass Problem Active index 40+ - index (BMI) 2-09 morbidly 50.0-59.9, 00:00: obese adult 00 Gastropares Gastropares Problem Active is is - 00:00: 00 Diabetic Type 2 Problem Active renal diabetes -02 disease mellitus 00:00: with 00 diabetic chronic kidney disease Pain in Pain in Problem Active left foot left foot 1-02 00:00: 00 Body mass Body mass Problem Active 2018-07 index 40+ - index (BMI) 1-06 severely 45.0-49.9, 00:00: obese adult 00 Arthropathy Charcot's Problem Active 2018-07 associated joint, left 1-06 with a ankle and 00:00: neurologica foot 00 l disorder Gastropares Gastropares Problem Active is with is with 6-17 type 2 Type 2 00:00: diabetes Diabetes 00 mellitus Mellitus Adult Encounter Problem Active health for general 7-21 examination adult 00:00: medical 00 examination without abnormal findings Encephalopa Encephalopa Problem Active thy thy, 5- unspecified 00:00: 00 Essential Essential Problem Active hypertensio (primary) 4-29 n hypertensio 00:00: n 00 Morbid Morbid Problem Active obesity (severe) 4-01 obesity due 00:00: to excess 00 calories Meralgia Meralgia Problem Active paresthetic paresthetic 3-30 a a, right 00:00: lower limb 00 Personal Personal Problem Active history of history of 2-13 primary other 00:00: malignant malignant 00 neoplasm of neoplasm of kidney kidney 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 2-13 disease of disease of 00:00: navajo navajo 00 coronary coronary artery artery without without angina angina pectoris pectoris Chronic Chronic Problem Active kidney kidney 2-13 disease disease, 00:00: stage 3 stage 3 00 (moderate) 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 2-13 neuropathy mellitus 00:00: due to type with 00 2 diabetes diabetic mellitus autonomic (poly)neuro jarrod Polyneuropa Type 2 Problem Active thy due to diabetes 2-13 type 2 mellitus 00:00: diabetes with 00 mellitus diabetic polyneuropa thy 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 00:00: kidney, 00 except renal pelvis Anxiety Anxiety Problem Active disorder disorder, 2-13 unspecified 00:00: 00 Coronary Coronary Problem Active arterioscle Arterioscle 8-07 rosis rosis 00:00: 00 History of History of Problem Active placement Placement 8-07 of stent of Stent 00:00: for for 00 coronary Coronary artery Artery disease Disease Lumbosacral Lumbosacral Problem Active 2015-07 plexus Plexus 0-05 neuropathy Neuropathy 00:00: 00 Congestive Congestive Problem Active 2015-07 heart Heart 0-05 failure Failure 00:00: 00 Hernia of Hernia of Problem Active 2015-07 abdominal Abdominal 0-05 cavity Cavity 00:00: 00 Chronic Chronic Problem Active 2015-07 kidney Kidney 0-05 disease Disease 00:00: stage 3 Stage 3 00 Degeneratio Degeneratio Problem Active 2015-07 n of lumbar n of Lumbar 0-05 interverteb Interverteb 00:00: ral disc ral Disc 00 Body mass Body Mass Problem Active 2015-07 index 40+ - Index 40+ - 0-05 severely Severely 00:00: obese Obese 00 Type II Type II Problem Active 2015-07 diabetes Diabetes 0-05 mellitus Mellitus 00:00: uncontrolle Uncontrolle 00 d d Obstructive Obstructive Problem Active 2015-07 sleep apnea Sleep Apnea 0-05 of adult of Adult 00:00: 00 Anemia Anemia Problem Active 04-02 00:00: 00 Mixed Mixed Problem Active anxiety and Anxiety and 04-02 depressive Depressive 00:00: disorder Disorder 00 Migraine Migraine Problem Active variant Variant 04-02 with with 00:00: headache Headache 00 Glaucoma Glaucoma Problem Active 04-02 00:00: 00 Bilateral Bilateral Problem Active cataracts Cataracts 04-02 00:00: 00 Essential Essential Problem Active hypertensio Hypertensio 04-02 n n 00:00: 00 Ulcer Ulcer Problem Active 04-02 00:00: 00 Arthritis Arthritis Problem Active 04-02 00:00: 00 History of History of Problem Active attempted Attempted 04-02 suicide Suicide 00:00: 00 Hyperlipide Hyperlipide Problem Active nadia nadia 04-02 00:00: 00 Memory Memory Problem Active impairment Impairment Procedures Procedure Date / Time Performed Performing Clinician Alvino MUELLER, kacey 2020-04-08 00:00:00 transitional care management 2020-01-10 00:00:00 service [facility] MED/CURRENT MED MERGE 2020-01-10 00:00:00 ANNUAL WELLNESS VST; PPS SUBSQT VST 2019-07-26 00:00:00 [facility] MED/CURRENT MED MERGE 2019-05-16 00:00:00 transitional care management 2019-05-16 00:00:00 service XR, foot, 2 view 2019-04-06 00:00:00 sudomotor testing of autonomic 2019-02-07 00:00:00 nervous system function (PROC) evoked potential 2019-02-07 00:00:00 sudomotor testing of autonomic 2018-12-25 00:00:00 nervous system function (PROC) MAMMO, screening, digital, 2018-10-02 00:00:00 bilateral gastric emptying study (PROC) 2018-06-22 00:00:00 Amputation of Toe 2015-07-11 00:00:00 FOOT/TOES SURGERY PROCEDURE 2014-07-11 00:00:00 Stent/Shunt 2013-07-11 00:00:00 REMOVE KIDNEY OPEN 2012-10-03 00:00:00 Nephroureterectomy 2012-07-11 00:00:00 Gallbladder Surgery 1999-07-11 00:00:00 Hand Surgery 1983-07-11 00:00:00 HAND/FINGER SURGERY 1980-07-11 00:00:00 Cataract Surgery Results Test Description Test Time Test Comments Text Results Atomic Results Result Comments GLUCOSE,BEDSIDE\S\ 2020-06-09 06:59:00 Test Item Value Reference Range Comments GLUCOSE,BEDSIDE (test code = GLUBS) 143 mg/dL 70-110 SARS-CoV-2 RNA Resp Ql [id number] 00:00:00 Test Item Value Reference Range Comments SARS-CoV-2 RNA Resp Ql Not detected [facility] Case MARY+probe (test code = ID: 02210 [id number]) SARS-CoV-2, MARY\S\2020-06-03 00:00:00 Test Item Value Reference Range Comments SARS-CoV-2, MARY (test code = 96741-3) Not Detected Not Detect ed SARS-CoV-2 RNA Resp Ql [id number] 00:00:00 Test Item Value Reference Range Comments SARS-CoV-2 RNA Resp Ql Not detected [facility] Case AMRY+probe (test code = ID: 94783 [id number]) [facility] 2019 CORONAVIRUS MARY PANEL\S\2019-12-25 10:55:00 Test Item Value Reference Range Comments [facility] CORONAVIRUS 2019 MARY SOURC (test code = NASOPHARYNGEAL SOURCE3) [facility] 2019 NOVEL CORONAVIRUS MARY (test code = NOT DETECTED [id number]) CREATININE, [id number]\[id number] 15:04:00 Test Item Value Reference Range Comments CREATININE, POC (test code = ICREA) 1.7 mg/dL 0.5-1.5 CBC + AUTOMATED [id number] 00:00:00 Test Item Value Reference Range Comments WBC (test code = WBC) 10.1 4.2-11.8 RBC (test code = RBC) 3.86 3.8-5.0 HEMOGLOBIN (test code = HEMOGLOBIN) 10.8 11.3-14.9 HEMATOCRIT (test code = HEMATOCRIT) 34 34-44.3 MCV (test code = MCV) 88 80.8-97.4 MCH (test code = MCH) 27.9 26.6-33.0 MCHC (test code = MCHC) 31.8 32-34.9 RDW (test code = RDW) 15.5 11.8-15.5 PLATELET (test code = PLATELET) 229 147-365 MPV (test code = MPV) 9.28 6.00-12.00 SEGMENTED% (test code = SEGMENTED%) 66.4 43.7-73.5 SEGMENTED# (test code = SEGMENTED#) 6.7 1.9-7.5 LYMPHOCYTES% (test code = LYMPHOCYTES%) 25.14 17.9-45. 1 LYMPHOCYTES# (test code = LYMPHOCYTES#) 2.5 1-4 MONOCYTES% (test code = MONOCYTES%) 4.6 3.8-10 MONOCYTES# (test code = MONOCYTES#) 0.5 0.2-0.9 EOSINOPHILS% (test code = EOSINOPHILS%) 3.41 0.0-6.1 EOSINOPHILS# (test code = EOSINOPHILS#) 0.34 0.0-0.5 BASOPHILS% (test code = BASOPHILS%) 0.48 0.0-0.9 BASOPHILS# (test code = BASOPHILS#) 0.05 0.0-0.1 COMPREHENSIVE [id number] 00:00:00 Test Item Value Reference Range Comments SODIUM (test code = SODIUM) 137 136-145 POTASSIUM (test code = POTASSIUM) 5.0 3.5-5.1 CHLORIDE (test code = CHLORIDE) 96 98-107 CARBONDIOXIDE (test code = CARBONDIOXIDE) 32.0 17-32 GLUCOSE (test code = GLUCOSE) 294 70-99 BUN (test code = BUN) 25 7-25 CREATININESERUM (test code = CREATININESERUM) 1.74 0. 5-1.2 BUN/CREATININERATIO (test code = BUN/CREATININERATIO) 14 8-28 BILIRUBIN,Total (test code = BILIRUBIN,Total) 0.3 0. 2-1.0 CALCIUM (test code = CALCIUM) 8.7 8.6-10.5 PROTEINTOTAL (test code = PROTEINTOTAL) 6.3 6.6-8.2 ALBUMIN (test code = ALBUMIN) 3.4 3.5-5.7 ALK.PHOSPHATASE (test code = ALK.PHOSPHATASE) 60 34 -104 ALT(SGPT) (test code = ALT(SGPT)) 20 7-52 AST(SGOT) (test code = AST(SGOT)) 21 11-39 GLOBULIN (test code = GLOBULIN) 2.9 1.8-4.0 A/GRATIO (test code = A/GRATIO) 1.2 0.8-2.7 GLOMERULARFILT.RATE (test code = GLOMERULARFILT.RATE) 32 >60 HEMOGLOBIN A1c (HGB AIC)2019-07-12 00:00:00 Test Item Value Reference Range Comments [id number](HGBAIC) (test code = 4548-4) 10.5 4.0-5 .6 LIPID [id number] 00:00:00 Test Item Value Reference Range Comments CHOLESTEROL (test code = CHOLESTEROL) 105 <200 TRIGLYCERIDES (test code = TRIGLYCERIDES) 214 10-149 HDLCHOLESTEROL (test code = HDLCHOLESTEROL) 37 40-1 99 LDL/HDLRATIO (test code = LDL/HDLRATIO) 0.68 0.00-4.9 7 LDLCHOLESTEROL,calc. (test code = 25 <100 LDLCHOLESTEROL,calc.) VLDLCHOLESTEROL,calc. (test code = 43 5-40 VLDLCHOLESTEROL,calc.) CHOLESTEROL/HDLRATIO (test code = 2.84 2.00-5.00 CHOLESTEROL/HDLRATIO) NON-HDLCHOLESTEROL (test code = NON-HDLCHOLESTEROL) 68 0-159 URIC [id number] 00:00:00 Test Item Value Reference Range Comments URICACID (test code = URICACID) 8.0 2.3-6.6 [id number] 00:00:00 Test Item Value Reference Range Comments COLOR (test code = COLOR) YELLOW YELLOW CLARITY (test code = CLARITY) CLEAR CLEAR SPECIFICGRAVITY (test code = SPECIFICGRAVITY) 1.009 1. 005-1.025 pH (test code = pH) 6.0 5.0-8.5 URINEPROTEIN (test code = URINEPROTEIN) NEGATIVE NEGATIVE URINEGLUCOSE (test code = URINEGLUCOSE) 150 MG/D NEGATIVE URINEKETONE (test code = URINEKETONE) NEGATIVE NEGATIVE URINEBILIRUBIN (test code = URINEBILIRUBIN) NEGATIVE NEGA TIVE URINEBLOOD (test code = URINEBLOOD) NEGATIVE NEGATIVE URINENITRITE (test code = URINENITRITE) NEGATIVE NEGATIVE UROBILINOGEN (test code = UROBILINOGEN) 0.2 0.2-1.0 LEUKOCYTE (test code = LEUKOCYTE) NEGATIVE NEGATIVE *PleaseNote: (test code = *PleaseNote:) MICROALBUMIN/CREATINE [id number] 00:00:00 Test Item Value Reference Range Comments MICROALB/CREATRATIO (test code = 68221-8) 103 0-29 CREATININE,URINE (test code = CREATININE,URINE) 33 20-300 TSH + FREE [id number] 00:00:00 Test Item Value Reference Range Comments [id number] (test code = [id number]) 1.985 0.340-4.410 FREET4 (test code = FREET4) 0.91 0.61-1.12 LAB [id number] 00:00:00 Test Item Value Reference Range Comments PDF (test code = PDF) LAB CBC W Auto Differential panel - [id number] 09:57:00 Test Item Value Reference Range Comments WBC (test code = WBC) 13.3 K/uL 4.1-10.9 lym% (test code = lym%) 27.8 % 10.0-58.5 lym# (test code = lym#) 3.7 % 0.6-4.1 mxd# (test code = mxd#) 1.5 % 0.0-1.8 mxd% (test code = mxd%) 11.5 % 0.1-24.0 gran (test code = gran) 8.1 % 2.0-7.8 gran% (test code = gran%) 60.7 % 37.0-92.0 RBC (test code = RBC) 4.61 M/uL 4.20-6.30 HGB (test code = HGB) 12.7 g/dL 14.1-18.1 HCT (test code = HCT) 40.3 % 34.5-53.7 MCV (test code = MCV) 87.4 fL 80.0-97.0 MCH (test code = MCH) 27.5 pg 26.0-32.0 MCHC (test code = MCHC) 31.5 g/dL 31.0-36.0 RDW (test code = RDW) 15.1 % 11.5-14.5 plt (test code = plt) 256 K/uL 140-440 MPV (test code = MPV) 7.7 fL 0.0-99.8 Foot X-ray 2 [id number] 10:19:31 Test Item Value Reference Range Comments Foot XR report (test code = Foot XR report) abnormal Foot X-ray 2 [id number] 10:19:31 Test Item Value Reference Range Comments Foot XR report (test code = Foot XR report) abnormal Urinalysis macro (dipstick) panel - [id number] 11:14:00 Test Item Value Reference Range Comments glucose (test code = glucose) negative bilirubin (test code = bilirubin) negative ketones (test code = ketones) negative specific gravity (test code = specific gravity) 1.001-1.035 blood (test code = blood) negative pH (test code = pH) 5.0-9.0 protein (test code = protein) negative urobilinogen (test code = urobilinogen) negative nitrates (test code = nitrates) negative leukocytes (test code = leukocytes) negative sent for culture (test code = sent for culture) no CPT multistix (test code = CPT multistix) >22430 CPT uriscreen accutest (test code = CPT uriscreen negative >71023 accutest) CBC W Auto Differential panel - [id number] 10:53:00 Test Item Value Reference Range Comments WBC (test code = WBC) 9.8 K/uL 4.1-10.9 lym% (test code = lym%) 32.1 % 10.0-58.5 lym# (test code = lym#) 3.1 % 0.6-4.1 mxd# (test code = mxd#) 0.6 % 0.0-1.8 mxd% (test code = mxd%) 5.9 % 0.1-24.0 gran (test code = gran) 6.1 % 2.0-7.8 gran% (test code = gran%) 62.0 % 37.0-92.0 RBC (test code = RBC) 4.30 M/uL 4.20-6.30 HGB (test code = HGB) 12.0 g/dL 14.1-18.1 HCT (test code = HCT) 37.7 % 34.5-53.7 MCV (test code = MCV) 87.6 fL 80.0-97.0 MCH (test code = MCH) 27.9 pg 26.0-32.0 MCHC (test code = MCHC) 31.8 g/dL 31.0-36.0 RDW (test code = RDW) 15.0 % 11.5-14.5 plt (test code = plt) 236 K/uL 140-440 MPV (test code = MPV) 9.0 fL 0.0-99.8 Urinalysis macro (dipstick) panel - [id number] 16:06:00 Test Item Value Reference Range Comments glucose (test code = glucose) negative bilirubin (test code = bilirubin) negative ketones (test code = ketones) negative specific gravity (test code = specific gravity) 1.001-1.035 blood (test code = blood) negative pH (test code = pH) 5.0-9.0 protein (test code = protein) negative urobilinogen (test code = urobilinogen) negative nitrates (test code = nitrates) negative leukocytes (test code = leukocytes) negative sent for culture (test code = sent for culture) yes CPT multistix (test code = CPT multistix) >37332 CPT uriscreen accutest (test code = CPT uriscreen positive >76679 accutest) CBC W Auto Differential panel - [id number] 16:03:00 Test Item Value Reference Range Comments WBC (test code = WBC) 13.0 K/uL 4.1-10.9 lym% (test code = lym%) 27.2 % 10.0-58.5 lym# (test code = lym#) 3.5 % 0.6-4.1 mxd# (test code = mxd#) 1.1 % 0.0-1.8 mxd% (test code = mxd%) 8.1 % 0.1-24.0 gran (test code = gran) 8.4 % 2.0-7.8 gran% (test code = gran%) 64.7 % 37.0-92.0 RBC (test code = RBC) 4.44 M/uL 4.20-6.30 HGB (test code = HGB) 12.3 g/dL 14.1-18.1 HCT (test code = HCT) 38.9 % 34.5-53.7 MCV (test code = MCV) 87.5 fL 80.0-97.0 MCH (test code = MCH) 27.7 pg 26.0-32.0 MCHC (test code = MCHC) 31.6 g/dL 31.0-36.0 RDW (test code = RDW) 15.4 % 11.5-14.5 plt (test code = plt) 303 K/uL 140-440 MPV (test code = MPV) 8.8 fL 0.0-99.8 Hemoglobin A1c/Hemoglobin.total in [id number] 10:19:00 Test Item Value Reference Range Comments Hemoglobin A1c/Hemoglobin.total in Blood (test code = 10.2 % 4.2% -6.5 4548-4) CBC w/ [id number] 00:00:00 Test Item Value Reference Range Comments white blood count (test code = white blood 10.4 10 3/uL 4.0-1 0.5 count) red blood count (test code = red blood count) 4.36 10 6/uL 3. 72-5.28 hemoglobin (test code = hemoglobin) 12.2 g/dL 12.0-15.5 hematocrit (test code = hematocrit) 36.3 % 36.0-47.0 mean corpuscular volume (test code = mean 83 fL 80-97 corpuscular volume) mean corpuscular hemoglobin (test code = mean 28.0 pg 27 .0-33.4 corpuscular hemoglobin) mean corpuscular HGB conc (test code = mean 33.6 g/dL 32.0 -36.0 corpuscular HGB conc) red cell distribution width (test code = red 15.5 % 11. 5-14.0 cell distribution width) platelet count (test code = platelet count) 265 10 3/uL 150- 450 segmented neutrophils % (auto) (test code = 71.5 % 42-7 8 segmented neutrophils % (auto)) lymphocytes % (auto) (test code = lymphocytes % 19.6 % 13-45 (auto)) monocytes % (auto) (test code = monocytes % 4.1 % 3-13 (auto)) eosinophils % (auto) (test code = eosinophils % 4.1 % 0-6 (auto)) basophils % (auto) (test code = basophils % 0.7 % 0-2 (auto)) absolute neut (auto) (test code = absolute neut 7.4 10 3/uL 1.7-8.2 (auto)) absolute lymphocytes (auto) (test code = 2.0 10 3/uL 0.5-4.7 absolute lymphocytes (auto)) absolute monocytes (auto) (test code = absolute 0.4 10 3/uL 0.1-1.4 monocytes (auto)) absolute eosinophils # (auto) (test code = 0.4 10 3/uL 0.0-0 .6 absolute eosinophils # (auto)) absolute basophils # (auto) (test code = 0.1 10 3/uL 0.0-0.2 absolute basophils # (auto)) Lipid 1996 panel - Serum or [id number] 00:00:00 Test Item Value Reference Range Comments triglycerides (test code = triglycerides) 215 mg/dL <150 cholesterol (test code = cholesterol) 137.40 mg/dL 0-200 direct LDL (test code = direct LDL) 58 mg/dL <100 VLDL cholesterol (test code = VLDL cholesterol) 43.0 mg/dL 10-31 direct HDL (test code = direct HDL) 47 mg/dL >40 Urinalysis macro (dipstick) panel - [id number] 11:00:00 Test Item Value Reference Range Comments glucose (test code = glucose) 500 mg/dL negative bilirubin (test code = bilirubin) negative negative ketones (test code = ketones) negative negative specific gravity (test code = specific gravity) 1.015 1.001-1.035 blood (test code = blood) negative negative pH (test code = pH) 7.0 5.0-9.0 protein (test code = protein) 30 mg/dL negative urobilinogen (test code = urobilinogen) 0.2 eu/dL negative nitrates (test code = nitrates) negative negative leukocytes (test code = leukocytes) negative negative sent for culture (test code = sent for culture) CBC W Auto Differential panel - [id number] 11:00:00 Test Item Value Reference Range Comments WBC (test code = WBC) 9.2 K/uL 4.1-10.9 lym% (test code = lym%) 42.8 % 10.0-58.5 lym# (test code = lym#) 3.9 % 0.6-4.1 mxd# (test code = mxd#) 1.2 % 0.0-1.8 mxd% (test code = mxd%) 13.5 % 0.1-24.0 gran (test code = gran) 4.0 % 2.0-7.8 gran% (test code = gran%) 43.7 % 37.0-92.0 RBC (test code = RBC) 4.36 M/uL 4.20-6.30 HGB (test code = HGB) 11.1 g/dL 14.1-18.1 HCT (test code = HCT) 37.1 % 34.5-53.7 MCV (test code = MCV) 85.0 fL 80.0-97.0 MCH (test code = MCH) 25.5 pg 26.0-32.0 MCHC (test code = MCHC) 29.9 g/dL 31.0-36.0 RDW (test code = RDW) 16.6 % 11.5-14.5 plt (test code = plt) 273 K/uL 140-440 MPV (test code = MPV) 7.5 fL 0.0-99.8 Urinalysis macro (dipstick) panel - [id number] 11:00:00 Test Item Value Reference Range Comments glucose (test code = glucose) 500 mg/dL negative bilirubin (test code = bilirubin) negative negative ketones (test code = ketones) negative negative specific gravity (test code = specific gravity) 1.015 1.001-1.035 blood (test code = blood) negative negative pH (test code = pH) 7.0 5.0-9.0 protein (test code = protein) 30 mg/dL negative urobilinogen (test code = urobilinogen) 0.2 eu/dL negative nitrates (test code = nitrates) negative negative leukocytes (test code = leukocytes) negative negative sent for culture (test code = sent for culture) CBC W Auto Differential panel - [id number] 11:00:00 Test Item Value Reference Range Comments WBC (test code = WBC) 9.2 K/uL 4.1-10.9 lym% (test code = lym%) 42.8 % 10.0-58.5 lym# (test code = lym#) 3.9 % 0.6-4.1 mxd# (test code = mxd#) 1.2 % 0.0-1.8 mxd% (test code = mxd%) 13.5 % 0.1-24.0 gran (test code = gran) 4.0 % 2.0-7.8 gran% (test code = gran%) 43.7 % 37.0-92.0 RBC (test code = RBC) 4.36 M/uL 4.20-6.30 HGB (test code = HGB) 11.1 g/dL 14.1-18.1 HCT (test code = HCT) 37.1 % 34.5-53.7 MCV (test code = MCV) 85.0 fL 80.0-97.0 MCH (test code = MCH) 25.5 pg 26.0-32.0 MCHC (test code = MCHC) 29.9 g/dL 31.0-36.0 RDW (test code = RDW) 16.6 % 11.5-14.5 plt (test code = plt) 273 K/uL 140-440 MPV (test code = MPV) 7.5 fL 0.0-99.8 CBC W Auto Differential panel - [id number] 08:50:00 Test Item Value Reference Range Comments WBC (test code = WBC) 9.9 K/uL 4.1-10.9 lym% (test code = lym%) 31.6 % 10.0-58.5 lym# (test code = lym#) 3.1 % 0.6-4.1 mxd# (test code = mxd#) 0.7 % 0.0-1.8 mxd% (test code = mxd%) 7.0 % 0.1-24.0 gran (test code = gran) 6.1 % 2.0-7.8 gran% (test code = gran%) 61.4 % 37.0-92.0 RBC (test code = RBC) 4.03 M/uL 4.20-6.30 HGB (test code = HGB) 10.6 g/dL 14.1-18.1 HCT (test code = HCT) 34.9 % 34.5-53.7 MCV (test code = MCV) 86.5 fL 80.0-97.0 MCH (test code = MCH) 26.3 pg 26.0-32.0 MCHC (test code = MCHC) 30.4 g/dL 31.0-36.0 RDW (test code = RDW) 16.0 % 11.5-14.5 plt (test code = plt) 269 K/uL 140-440 MPV (test code = MPV) 8.4 fL 0.0-99.8 Urinalysis macro (dipstick) panel - [id number] 08:50:00 Test Item Value Reference Range Comments glucose (test code = glucose) negative negative bilirubin (test code = bilirubin) negative negative ketones (test code = ketones) negative negative specific gravity (test code = specific gravity) 1.020 1.001-1.035 blood (test code = blood) negative negative pH (test code = pH) 7.0 5.0-9.0 protein (test code = protein) 100 mg/dL negative urobilinogen (test code = urobilinogen) 1.0 eu/dL negative nitrates (test code = nitrates) negative negative leukocytes (test code = leukocytes) negative negative sent for culture (test code = sent for culture) Bacteria identified in Urine by [id number] 00:00:00 Test Item Value Reference Range Comments urine culture (test code = urine culture) ecol antibiotic sensitivity testing, [id number] 00:00:00 AmikacinAmoxicillin/clavulanateAmpicillinAmpicillin/sulbactamCefazolinCefepimeCe fotaximeCeftazidimeCe ftriaxoneCefuroximeCiprofloxacinErtapenemGentamicinImipenemLevofloxacinMeropenem NitrofurantoinPiperac ill/tazobactamTetracyclineTicarcillin/clavTobramycinTrimethoprim/sulfamethoxazol eUrinalysis macro (dipstick) panel - [id number] 08:30:00 Test Item Value Reference Range Comments glucose (test code = glucose) 100 mg/dL negative bilirubin (test code = bilirubin) negative negative ketones (test code = ketones) negative negative specific gravity (test code = specific gravity) >=1.030 1.001-1.035 blood (test code = blood) negative negative pH (test code = pH) 5.5 5.0-9.0 protein (test code = protein) 30 mg/dL negative urobilinogen (test code = urobilinogen) 0.2 eu/dL negative nitrates (test code = nitrates) negative negative leukocytes (test code = leukocytes) negative negative sent for culture (test code = sent for culture) CBC W Auto Differential panel - [id number] 08:30:00 Test Item Value Reference Range Comments WBC (test code = WBC) 11.4 K/uL 4.1-10.9 lym% (test code = lym%) 26.2 % 10.0-58.5 lym# (test code = lym#) 3.0 % 0.6-4.1 mxd# (test code = mxd#) 1.3 % 0.0-1.8 mxd% (test code = mxd%) 11.5 % 0.1-24.0 gran (test code = gran) 7.1 % 2.0-7.8 gran% (test code = gran%) 62.3 % 37.0-92.0 RBC (test code = RBC) 3.97 M/uL 4.20-6.30 HGB (test code = HGB) 10.8 g/dL 14.1-18.1 HCT (test code = HCT) 34.5 % 34.5-53.7 MCV (test code = MCV) 86.8 fL 80.0-97.0 MCH (test code = MCH) 27.2 pg 26.0-32.0 MCHC (test code = MCHC) 31.3 g/dL 31.0-36.0 RDW (test code = RDW) 14.9 % 11.5-14.5 plt (test code = plt) 247 K/uL 140-440 MPV (test code = MPV) 8.8 fL 0.0-99.8 Comprehensive metabolic 2000 panel - Serum or [id number] 00:00:00 Test Item Value Reference Range Comments calcium (test code = calcium) 9.4 mg/dL 8.4-10.2 glucose (test code = glucose) 267 mg/dL 75-110 blood urea nitrogen (test code = blood urea 27 mg/dL 7-20 nitrogen) creatinine result (test code = creatinine 1.60 mg/dL 0.52-1 .25 result) eGFR,non (test code = eGFR,non 33 >60 ) eGFR, (test code = eGFR, 40 >60 bel[place]ian) potassium (test code = potassium) 5.6 mmol/L 3.6-5.0 chloride (test code = chloride) 97 mmol/L 98-107 carbon dioxide (test code = carbon dioxide) 34 mmol/L 22-3 0 sodium (test code = sodium) 140.9 mmol/L 137-145 anion gap (test code = anion gap) 10 5-19 albumin (test code = albumin) 3.8 g/dL 3.5-5.0 aspartate amino transferase (test code = 30 U/L 14-36 aspartate amino transferase) alkaline phosphatase (test code = alkaline 77 U/L 38-12 6 phosphatase) alanine aminotransferase (test code = alanine 36 U/L 9- 52 aminotransferase) bilirubin,total (test code = bilirubin,total) 0.3 mg/dL 0. 2-1.3 bilirubin,direct (test code = bilirubin,direct) 0.2 mg/dL 0.0-0.4 total protein (test code = total protein) 7.4 g/dL 6.3-8. 2 Hemoglobin A1c/Hemoglobin.total in [id number] 13:00:00 Test Item Value Reference Range Comments HbA1C (test code = HbA1C) 7.3 % 4.2% -6.5 lipid panel, [id number] 13:00:00 Test Item Value Reference Range Comments TC (<200 mg/dL) (test code = TC (<200 mg/dL)) 232 mg/dL <2 00 mg/dL HDL (40-60 mg/dL) (test code = HDL (40-60 mg/dL)) 38 mg/dL 40-60 mg/dL trig (<150 mg/dL) (test code = trig (<150 mg/dL)) 344 mg/dL <150 mg/dL LDL (<100 mg/dL) (test code = LDL (<100 mg/dL)) 126 mg/dL <100 non-HDL (<130 mg/dL) (test code = non-HDL (<130 195 mg/dL <130 mg/dL mg/dL)) TC/HDL ratio (4.5 or less) (test code = TC/HDL 6.2 mg/dL 4 .5 or less ratio (4.5 or less)) 10yr CHD risk (test code = 10yr CHD risk) % test code: 945962 (test code = test code: 441650) CBC W Auto Differential panel - [id number] 12:21:00 Test Item Value Reference Range Comments WBC (test code = WBC) 10.7 K/uL 4.1-10.9 lym% (test code = lym%) 33.4 % 10.0-58.5 lym# (test code = lym#) 3.6 % 0.6-4.1 mxd# (test code = mxd#) 0.7 % 0.0-1.8 mxd% (test code = mxd%) 6.9 % 0.1-24.0 gran (test code = gran) 6.4 % 2.0-7.8 gran% (test code = gran%) 59.7 % 37.0-92.0 RBC (test code = RBC) 3.97 M/uL 4.20-6.30 HGB (test code = HGB) 10.9 g/dL 14.1-18.1 HCT (test code = HCT) 34.7 % 34.5-53.7 MCV (test code = MCV) 87.5 fL 80.0-97.0 MCH (test code = MCH) 27.5 pg 26.0-32.0 MCHC (test code = MCHC) 31.4 g/dL 31.0-36.0 RDW (test code = RDW) 15.6 % 11.5-14.5 plt (test code = plt) 350 K/uL 140-440 MPV (test code = MPV) 8.3 fL 0.0-99.8 Urinalysis macro (dipstick) panel - [id number] 12:11:00 Test Item Value Reference Range Comments glucose (test code = glucose) 500 mg/dL negative bilirubin (test code = bilirubin) negative negative ketones (test code = ketones) negative negative specific gravity (test code = specific gravity) 1.015 1.001-1.035 blood (test code = blood) negative negative pH (test code = pH) 6.0 5.0-9.0 protein (test code = protein) negative negative urobilinogen (test code = urobilinogen) 0.2 eu/dL negative nitrates (test code = nitrates) negative negative leukocytes (test code = leukocytes) negative negative sent for culture (test code = sent for culture) Assessments Condition Name Status Diagnosis Date Treating Clinici an Foot pain Active 2020-04-08 14:08:02 Charcot's arthropathy Active 2020-04-08 20:48:50 - Left lower quadrant pain R10.32 Active [facility], [place] - Tinea unguium B35.1 Active [facility], [place] - Cellulitis of right lower limb Active [facility], [place] L03.115 - Type 2 diabetes mellitus with Active [facility], [place] diabetic autonomic (poly)neuropathy E11.43 - Type 2 diabetes mellitus with Active [facility], [place] hyperglycemia E11.65 - Morbid (severe) obesity due to Active [facility], [place] excess calories E66.01 - Chronic kidney disease, stage 3 Active [facility], [place] (moderate) 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[facility], [place] coronary artery without angina pectoris I25.10 - Type 2 diabetes mellitus with Active [facility], [place] diabetic autonomic (poly)neuropathy E11.43 - Essential (primary) hypertension I10 Active [facility], [place] - Chronic kidney disease, stage 3 Active [facility], [place] (moderate) N18.3 - Charcot's joint, left ankle and foot Active [facility], [place] M14.672 - Gastroparesis K31.84 Active [facility] , [place] - Encounter for general adult medical Active [facility], [place] examination without abnormal findings Z00.00 - Pain in thoracic spine M54.6 Active O [facility]oboh, [place] - Type 2 diabetes mellitus with Active [facility], [place] diabetic chronic kidney disease E11.22 - Pain in left foot M79.672 Active O[facility]eb uoboh, [place] - Gastroparesis K31.84 Active [facility] , [place] - Body mass index (BMI) 50.0-59.9, Active [facility], [place] adult Z68.43 - Urinary tract infection, site not Active [facility], [place] specified N39.0 - Body mass index (BMI) 45.0-49.9, Active [facility], [place] adult Z68.42 - Type 2 diabetes mellitus with Active [facility], [place] diabetic polyneuropathy E11.42 - Charcot's joint, left ankle and foot Active [facility]oh, [place] M14.672 - Body mass index (BMI) 45.0-49.9, Active [place], [place] adult Z68.42 Edema of lower extremity Active 2019-05-02 09:55:38 Dysuria-frequency syndrome Active 2019-05-02 10:55:04 Pain of left ankle joint Active 2019-05-02 10:56:55 Cellulitis of foot Active 2019-05-02 11:38:48 Nausea Active 2019-05-02 11:46:07 Pain in left foot Active 2019-04-06 10:17:38 Influenza vaccination Active 2019-04-06 10:22:49 Obstructive sleep apnea of adult Active 2019-03-22 10:2 7:03 Memory impairment Active 2019-03-22 10:28:28 Type II diabetes mellitus uncontrolled Active 2019-03-11 2 10:39:35 Dysuria-frequency syndrome Active 2019-03-22 11:47:02 Type II diabetes mellitus uncontrolled Active 2019-01-10 1 15:36:26 Chronic kidney disease stage 3 Active 2019-02-07 15:36: 39 Congestive heart failure Active 2019-02-07 15:36:42 Essential hypertension Active 2019-02-07 16:03:12 Abnormal urine odor Active 2019-02-07 16:03:35 Memory impairment Active 2019-02-07 16:45:59 Type II diabetes mellitus uncontrolled Active 2018-12-09 7 09:47:39 Essential hypertension Active 2018-12-25 09:47:47 Hyperlipidemia Active 2018-12-25 09:47:43 Gastroparesis due to type 2 diabetes Active 2018-12-25 10:56:42 mellitus Vomiting Active 2018-10-23 10:34:09 Dysuria Active 2018-10-23 10:59:21 Type II diabetes mellitus uncontrolled Active 2018-10-09 5 12:03:16 Adult health examination Active 2018-10-02 08:47:44 Immunization Active 2018-10-02 08:47:44 Screening for malignant neoplasm of Active 2018-10-02 0 8:47:44 breast Screening for malignant neoplasm of Active 2018-10-02 0 8:47:44 cervix Screening for malignant neoplasm of Active 2018-10-02 0 8:47:44 colon Screening for cardiovascular system Active 2018-10-02 0 8:47:44 disease Follow-up encounter Active 2018-09-04 10:11:23 Dysuria-frequency syndrome Active 2018-09-04 10:35:25 Type II diabetes mellitus uncontrolled Active 2018-08-12 5 10:35:40 Degeneration of lumbar intervertebral Active 2018-09-04 10:42:24 disc Type II diabetes mellitus uncontrolled Active 2018-07-12 4 08:13:42 Hyperlipidemia Active 2018-08-03 08:13:44 Dysuria-frequency syndrome Active 2018-08-03 08:43:33 Type II diabetes mellitus uncontrolled Active 2018-06-10 3 09:42:20 Essential hypertension Active 2018-06-22 09:42:22 Gastroparesis due to type 2 diabetes Active 2018-06-22 10:28:43 mellitus Influenza vaccination Active 2018-06-22 10:32:06 Follow-up visit Active 2018-06-22 10:34:51 Urinary tract infectious disease Active 2018-06-13 08:1 5:53 Essential hypertension Active 2018-06-13 09:31:14 Type II diabetes mellitus uncontrolled Active 4 09:31:52 Type II diabetes mellitus uncontrolled Active 2018-04-12 0 11:00:10 Hyperlipidemia Active 2018-05-09 11:00:11 Essential hypertension Active 2018-05-09 11:00:13 Urinary tract infectious disease Active 2018-04-19 12:0 1:07 Type II diabetes mellitus uncontrolled Active 2018-04-10 0 12:51:03 - Type 2 diabetes mellitus with Active [facility], [place] diabetic polyneuropathy E11.42 - Encounter for general adult medical Active [place], [place] examination without abnormal findings Z00.00 - Type 2 diabetes mellitus with Active [place], [place] diabetic polyneuropathy E11.42 - Encephalopathy, unspecified G93.40 Active [facility], [place] - Type 2 diabetes mellitus with Active [place], [place] diabetic polyneuropathy E11.42 - Urinary tract infection, site not Active [facility], [place] specified N39.0 - Type 2 diabetes mellitus with Active [place], [place] diabetic polyneuropathy E11.42 - Meralgia paresthetica, right lower Active [place], [place] limb G57.11 - Type 2 diabetes mellitus with Active [place], [place] diabetic polyneuropathy E11.42 - Essential (primary) hypertension I10 Active [facility], [place] - Morbid (severe) obesity due to Active [facility], [place] excess calories E66.01 - Type 2 diabetes mellitus with Active [place], [place] diabetic polyneuropathy E11.42 - Personal history of other malignant Active [facility], [place] neoplasm of kidney Z85.528 - Malignant neoplasm of right kidney, Active [place], [place] except renal pelvis C64.1 - Morbid (severe) obesity due to Active [place], [place] excess calories E66.01 Encounters Start End Encounter Admission Attending Care Care Encounter Date/Time Date/Time Type Type Clinicians Facility Department ID 2020-04-08 2020-04-08 Rickey Robert [id number] 00:00:00 00:00:00 [facility] [address] Bennie, DO: [facility] [address] [place] [address], [address], [place] [address], Ph. 2020-03-10 2020-03-10 [id number] 00:00:00 00:00:00 PA PA 2020-02-25 2020-02-25 [id number] 00:00:00 00:00:00 PA PA 2020-02-14 2020-02-14 [id number] 00:00:00 00:00:00 PA PA 2020-02-13 2020-02-13 [id number] 00:00:00 00:00:00 PA PA 2020-02-07 2020-02-07 [id number] 00:00:00 00:00:00 PA PA 2020-02-01 2020-02-01 [id number] 00:00:00 00:00:00 PA PA 2020-01-30 2020-01-30 [id number] 00:00:00 00:00:00 PA PA 2020-01-24 2020-01-24 [id number] 00:00:00 00:00:00 PA PA 2020-01-17 2020-01-17 [id number] 00:00:00 00:00:00 PA PA 2020-01-10 2020-01-10 [facility] [id number] 00:00:00 00:00:00 PA PA 2020-01-10 2020-01-10 [facility] [id number] 00:00:00 00:00:00 PA 2020-01-09 2020-01-09 [facility] 33 [id number] 00:00:00 00:00:00 PA PA 2020-01-03 2020-01-03 [facility] 33 [id number] 00:00:00 00:00:00 PA PA 2020-01-03 2020-01-03 [facility] 33 [id number] 00:00:00 00:00:00 PA PA 2019-12-26 2019-12-26 [facility] [id number] 00:00:00 00:00:00 _[id number] 2019-11-23 [facility] 32 [id number] 00:00:00 00:00:00 PA PA 2019-11-14 2019-11-14 [facility] 32 [id number] 00:00:00 00:00:00 PA PA 2019-11-05 2019-11-05 [facility] [id number] 00:00:00 00:00:00 PA PA 2019-10-30 2019-10-30 [facility] 32 [id number] 00:00:00 00:00:00 PA PA 2019-10-25 2019-10-25 [facility] 31 [id number] 00:00:00 00:00:00 PA PA 2019-10-18 2019-10-18 [facility] 32 [id number] 00:00:00 00:00:00 PA PA 2019-10-11 2019-10-11 [facility] 31 [id number] 00:00:00 00:00:00 PA PA 2019-07-26 2019-07-26 [facility] 31 [id number] 00:00:00 00:00:00 PA PA 2019-07-12 2019-07-12 [facility] 31 [id number] 00:00:00 00:00:00 PA PA 2019-06-27 2019-06-27 [facility] [place] [id number] 00:00:00 00:00:00 PA 2019-06-11 2019-06-11 [facility] 31 [id number] 00:00:00 00:00:00 PA PA 2019-05-24 2019-05-24 [facility] 31 [id number] 00:00:00 00:00:00 PA PA 2019-05-16 2019-05-16 [facility] 31 [id number] 00:00:00 00:00:00 PA PA 2019-05-09 2019-05-09 [facility] 31 [id number] 00:00:00 00:00:00 PA PA 2019-05-02 2019-05-02 [facility] [id number]_ 00:00:00 00:00:00 [facility] [address], Medical Medical MD: [address] [place] [address], Ph. 2019-04-06 2019-04-06 [place] [id number]_ 00:00:00 00:00:00 [facility] [address], Medical Medical MD: [address] [place] [address], Ph. 2019-03-22 2019-03-22 [place] [id number] 00:00:00 00:00:00 [facility] [address], Medical Medical MD: [address] [place] [address], Ph. 2019-02-07 2019-02-07 [facility] [id number] 00:00:00 00:00:00 [facility] [address] Medical Medical MD: [address] [place] [address], Ph. 2018-12-25 2018-12-25 [place] [id number] 00:00:00 00:00:00 [facility] [address], Medical Medical MD: [address] [place] [address], Ph. 2018-10-23 2018-10-23 [place] [id number] 00:00:00 00:00:00 [facility] [address], Medical Medical MD: [address] [place] [address], Ph. 2018-10-02 2018-10-02 [place] [id number] 00:00:00 00:00:00 [facility] [address], Medical Medical MD: [address] [place] [address], Ph. 2018-09-04 2018-09-04 [place] [id number]_ 00:00:00 00:00:00 [facility] [address], Medical Medical MD: [address] [place] [address], Ph. 2018-08-03 2018-08-03 [place] [id number]_ 00:00:00 00:00:00 [facility] [address], Medical Medical MD: [address] [place] [address], Ph. 2018-06-22 2018-06-22 [place] [id number]_ 00:00:00 00:00:00 [facility] [address], Medical Medical MD: [address] [place] [address], Ph. 2018-06-13 2018-06-13 [place] [id number]_ 00:00:00 00:00:00 [facility] [address], Medical Medical MD: [address] [place] [address], Ph. 2018-06-12 2018-06-12 [place] [id number]_ 00:00:00 00:00:00 [facility] [address], Medical Medical MD: [address] [place] [address], Ph. 2018-06-08 2018-06-08 [facility] 2211 00:00:00 00:00:00 JAMES RAMIREZ 2018-05-09 2018-05-09 [facility] [id number] 00:00:00 00:00:00 [facility] MD: [address] [place] [address], Ph. 2018-04-19 2018-04-19 [facility] [id number] 00:00:00 00:00:[address] MD: [address] [place] [address], Ph. 2018-01-27 2018-01-27 [facility] 25 [id number] 00:00:00 00:00:00 PA PA 2017-12-01 2017-12-01 [facility] 25 [id number] 00:00:00 00:00:00 PA PA 2017-11-28 2017-11-28 [facility] 25 [id number] 00:00:00 00:00:00 PA PA 2017-11-08 2017-11-08 [facility] 25 [id number] 00:00:00 00:00:00 PA PA 2017-11-03 2017-11-03 [facility] 25 [id number] 00:00:00 00:00:00 PA PA 2017-10-31 2017-10-31 [facility] 25 [id number] 00:00:00 00:00:00 PA PA 2017-10-07 2017-10-07 [facility] 24 [id number] 00:00:00 00:00:00 PA PA 2017-09-27 2017-09-27 [facility] 24 [id number] 00:00:00 00:00:00 PA PA 2017-09-09 2017-09-09 [facility] 24 [id number] 00:00:00 00:00:00 PA PA 2017-09-06 2017-09-06 [facility] 24 [id number] 00:00:00 00:00:00 PA PA 2017-09-05 2017-09-05 [facility] 24 [id number] 00:00:00 00:00:00 PA PA 2017-08-23 2017-08-23 [facility] 24 [id number] 00:00:00 00:00:00 JAMES RAMIREZ Immunizations Ordered Immunization Filled Immunization Date Status Commen ts Refusal Name Name Reason influenza, 2019-04-05 Completed injectable, 00:00:00 quadrivalent influenza, 2019-04-05 Completed injectable, 00:00:00 quadrivalent, preservative free influenza, 2018-08-11 Completed injectable, 00:00:00 quadrivalent Influenza, 2017-03-29 Completed injectable, MDCK, 12:14:00 preservative free, quadrivalent influenza, seasonal, 2016-04-14 Completed injectable, 15:55:00 preservative free influenza, seasonal, 2016-04-14 Completed injectable, 00:00:00 preservative free pneumococcal 2013-07-11 Completed polysaccharide PPV23 00:00:00 influenza, Unknown Completed injectable, quadrivalent, preservative free Social History Smoking Status Start Date Stop Date Never Smoker Former Smoker Vital Signs Vital Name Observation Time Observation Value Comments Height 2020-04-08 00:00:00 66 [in_i] BMI (Body Mass Index) 2020-04-08 00:00:00 47.6 kg/m2 Body Weight 2020-04-08 00:00:00 295 [lb_av] height 2020-01-10 09:30:00 66 [in_us] weight 2020-01-10 09:30:00 307.2 [lb_av] bmi 2020-01-10 09:30:00 49.58 kg/m2 heart rate 2020-01-10 09:30:00 72 /min blood pressure systolic 2020-01-10 09:30:00 148 mm[Hg] blood pressure diastolic 2020-01-10 09:30:00 84 mm[Hg] height 2019-10-25 09:15:00 66 [in_us] weight 2019-10-25 09:15:00 317 [lb_av] bmi 2019-10-25 09:15:00 51.16 kg/m2 heart rate 2019-10-25 09:15:00 83 /min blood pressure systolic 2019-10-25 09:15:00 134 mm[Hg] blood pressure diastolic 2019-10-25 09:15:00 76 mm[Hg] height 2019-07-26 10:00:00 66 [in_us] weight 2019-07-26 10:00:00 313.4 [lb_av] bmi 2019-07-26 10:00:00 50.58 kg/m2 heart rate 2019-07-26 10:00:00 80 /min blood pressure systolic 2019-07-26 10:00:00 117 mm[Hg] blood pressure diastolic 2019-07-26 10:00:00 73 mm[Hg] height 2019-07-12 10:15:00 66 [in_us] weight 2019-07-12 10:15:00 319.4 [lb_av] bmi 2019-07-12 10:15:00 51.55 kg/m2 heart rate 2019-07-12 10:15:00 68 /min blood pressure systolic 2019-07-12 10:15:00 129 mm[Hg] blood pressure diastolic 2019-07-12 10:15:00 70 mm[Hg] height 2019-06-11 14:45:00 66 [in_us] weight 2019-06-11 14:45:00 307 [lb_av] bmi 2019-06-11 14:45:00 49.55 kg/m2 heart rate 2019-06-11 14:45:00 73 /min temperature 2019-06-11 14:45:00 97.8 [degF] blood pressure systolic 2019-06-11 14:45:00 140 mm[Hg] blood pressure diastolic 2019-06-11 14:45:00 80 mm[Hg] height 2019-05-16 09:45:00 66 [in_us] weight 2019-05-16 09:45:00 308 [lb_av] bmi 2019-05-16 09:45:00 49.71 kg/m2 heart rate 2019-05-16 09:45:00 65 /min blood pressure systolic 2019-05-16 09:45:00 147 mm[Hg] blood pressure diastolic 2019-05-16 09:45:00 80 mm[Hg] BP Diastolic 2019-05-02 00:00:00 78 mm[Hg] Height 2019-05-02 00:00:00 66 [in_i] BMI (Body Mass Index) 2019-05-02 00:00:00 50.3 kg/m2 BP Systolic 2019-05-02 00:00:00 129 mm[Hg] Body Weight 2019-05-02 00:00:00 311.6 [lb_av] BP Diastolic 2019-04-06 00:00:00 79 mm[Hg] Height 2019-04-06 00:00:00 66 [in_i] BMI (Body Mass Index) 2019-04-06 00:00:00 49.1 kg/m2 BP Systolic 2019-04-06 00:00:00 137 mm[Hg] Body Weight 2019-04-06 00:00:00 304 [lb_av] BP Diastolic 2019-03-22 00:00:00 77 mm[Hg] Height 2019-03-22 00:00:00 66 [in_i] BMI (Body Mass Index) 2019-03-22 00:00:00 49.9 kg/m2 BP Systolic 2019-03-22 00:00:00 137 mm[Hg] Body Weight 2019-03-22 00:00:00 309.4 [lb_av] BP Diastolic 2019-02-07 00:00:00 81 mm[Hg] Height 2019-02-07 00:00:00 66 [in_i] BMI (Body Mass Index) 2019-02-07 00:00:00 49.5 kg/m2 BP Systolic 2019-02-07 00:00:00 148 mm[Hg] Body Weight 2019-02-07 00:00:00 306.6 [lb_av] BP Diastolic 2018-12-25 00:00:00 78 mm[Hg] Height 2018-12-25 00:00:00 66 [in_i] BMI (Body Mass Index) 2018-12-25 00:00:00 48.6 kg/m2 BP Systolic 2018-12-25 00:00:00 115 mm[Hg] Body Weight 2018-12-25 00:00:00 301 [lb_av] BP Diastolic 2018-10-23 00:00:00 83 mm[Hg] Height 2018-10-23 00:00:00 66 [in_i] BMI (Body Mass Index) 2018-10-23 00:00:00 47.9 kg/m2 BP Systolic 2018-10-23 00:00:00 129 mm[Hg] Body Weight 2018-10-23 00:00:00 296.6 [lb_av] BP Diastolic 2018-10-02 00:00:00 89 mm[Hg] Height 2018-10-02 00:00:00 66 [in_i] BMI (Body Mass Index) 2018-10-02 00:00:00 47.1 kg/m2 BP Systolic 2018-10-02 00:00:00 144 mm[Hg] Body Weight 2018-10-02 00:00:00 292 [lb_av] BP Diastolic 2018-09-04 00:00:00 81 mm[Hg] Height 2018-09-04 00:00:00 66 [in_i] BMI (Body Mass Index) 2018-09-04 00:00:00 47.3 kg/m2 BP Systolic 2018-09-04 00:00:00 119 mm[Hg] Body Weight 2018-09-04 00:00:00 292.8 [lb_av] BP Diastolic 2018-08-03 00:00:00 81 mm[Hg] Height 2018-08-03 00:00:00 66 [in_i] BMI (Body Mass Index) 2018-08-03 00:00:00 47.1 kg/m2 BP Systolic 2018-08-03 00:00:00 123 mm[Hg] Body Weight 2018-08-03 00:00:00 292 [lb_av] BP Diastolic 2018-06-22 00:00:00 79 mm[Hg] Height 2018-06-22 00:00:00 66 [in_i] BMI (Body Mass Index) 2018-06-22 00:00:00 47.1 kg/m2 BP Systolic 2018-06-22 00:00:00 117 mm[Hg] Body Weight 2018-06-22 00:00:00 291.8 [lb_av] BP Diastolic 2018-06-13 00:00:00 75 mm[Hg] Height 2018-06-13 00:00:00 66 [in_i] BMI (Body Mass Index) 2018-06-13 00:00:00 46.7 kg/m2 BP Systolic 2018-06-13 00:00:00 111 mm[Hg] Body Weight 2018-06-13 00:00:00 289.2 [lb_av] BP Diastolic 2018-05-09 00:00:00 67 mm[Hg] Height 2018-05-09 00:00:00 66 [in_i] BMI (Body Mass Index) 2018-05-09 00:00:00 46.5 kg/m2 BP Systolic 2018-05-09 00:00:00 119 mm[Hg] Body Weight 2018-05-09 00:00:00 288.4 [lb_av] BP Diastolic 2018-04-19 00:00:00 75 mm[Hg] Height 2018-04-19 00:00:00 66 [in_i] BMI (Body Mass Index) 2018-04-19 00:00:00 45.6 kg/m2 BP Systolic 2018-04-19 00:00:00 115 mm[Hg] Body Weight 2018-04-19 00:00:00 282.8 [lb_av] Hospital Discharge Instructions 1. Foot pain XR, foot 2. Charcot's arthropathy Discussion Note: None recorded. Patient educational handouts: No information available.1. Obstructive sleep apnea of adult sleep apnea: care instructions 2. Memory impairment Centrum Silver Women 8 mg iron-400 mcg-300 mcg tablet A healthy lifestyle: care instructions 3. Type II diabetes mellitus uncontrolled Tresiba FlexTouch U-200 insulin 200 unit/mL (3 mL) subcutaneouspen Humalog KwikPen (U-100) Insulin 100 unit/mL subcutaneous 4. Dysuria-frequency syndrome st ress incontinence in women: care instructions urinalysis, dipstick CBC w/ auto diff atrophic vaginitis: care instructions Discussion Note Patient verbalized understanding and agreement withrecommended care plan. All questions and concerns were addressed and answered adequately. Follow up visit will address dm, htn, ckd1. Type II diabetes mellitus uncontrolled type 2 diabetes: care instructions sudomotor testing of autonomic nervous system function (PROC) 2. Chronic kidney disease stage 3 3. Congestive heart failure heart failure: care instructions learning about heart failure 4. Essential hypertension high blood pressure: care instructions learning about high blood pressure lipid panel,blood 5. Abnormal urine odor urinalysis, dipstick CBC w/ auto diff sulfamethoxazole 400 mg- trimethoprim 80 mg tablet 6. Memory impairment sac-osage hospital status evokedpotential Discussion Note Patient verbalized understanding and agreement with recommended care plan.All questions and concerns were addressed and answered adequately. Follow up visit will address sergey,memory loss1. Type II diabetes mellitus uncontrolled type 2 diabetes: care instructions HbA1c (hemoglobin A1c), blood sudomotor testing of autonomic nervous system function (PROC) Humalog KwikPen (U-100) Insulin 100 unit/mL subcutaneous Tresiba FlexTouch U-200 insulin 200 unit/mL (3 mL) subcutaneous pen 2. Essential hypertension high blood pressure: care instructions learning about high blood pressure CMP, serum or plasma 3. Hyperlipidemia high cholesterol: care instructions high-fiber diet: care instructions walking for exercise: care instructions statins: careinstructions 4. Gastroparesis due to type 2 diabetes mellitus Motegrity 2 mg tablet gastroparesis: care instructions Discussion Note Patient verbalized understanding and agreement with recommended care plan. All questions and concerns were addressed and answered adequately. Follow up visit will address dm, chf, ckd1. Follow-up encounter safe hospital stay: care instructions 2. Dysuria-frequency syndrome urinalysis, dipstick CBC w/ auto diff 3. Type II diabetes mellitus uncontrolled type 2 diabetes: care instructions Novolog Flexpen U-100 Insulin aspart 100 unit/mL subcutaneous Tresiba FlexTouch U-100 insulin 100 unit/mL (3 mL) subcutaneous pen 4. Degeneration of lumbar intervertebral disc lidocaine 5 % topical patch preventing falls: care instructions back pain: care instructions back care and preventing injuries: care instructions Discussion Note Patient verbalized understanding and agreement with recommended care plan. All questions and concerns were addressed and answered adequately. Follow up visit will address ape.1. Type II diabetes mellitus uncontrolled type 2 diabetes: care instructions HbA1c (hemoglobin A1c), blood CBC w/ auto diff 2. Hyperlipidemia high cholesterol: care instructions 3. Dysuria-frequency syndrome urinalysis, dipstick urinary tract infection in women: care instructions atrophic vaginitis: care instructions Discussion Note Patient verbalized understanding and agreement with recommended care plan. All questions and concerns were addressed and answered adequately.Follow up visit will address ape1. Urinary tract infectious disease urinalysis, dipstick CBC w/ auto diff levofloxacin 250 mg tablet urinary tract infection in women: care instructions 2. Type II diabetes mellitus uncontrolled type 2 diabetes: care instructions Discussion Note Patient verbalized understanding andagreement with recommended care plan. All questions and concerns were addressed and answered adequately. Follow up visit will address dm, htn, hld
== END 2020-08-04 03:07 | disposition home or self-care (01) ==
LOC: ER 19:41
DX: E11.65 Type 2 diabetes mellitus with hyperglycemia (principal); E11.622 Type 2 diabetes mellitus with other skin ulcer; L97.319 Non-pressure chronic ulcer of right ankle with unspecified severity; N39.0 Urinary tract infection, site not specified; R42 Dizziness and giddiness; F17.200 Nicotine dependence, unspecified, uncomplicated; I25.10 Atherosclerotic heart disease of native coronary artery without angina pectoris; I10 Essential (primary) hypertension; G47.30 Sleep apnea, unspecified; Z99.89 Dependence on other enabling machines and devices; Z79.4 Long term (current) use of insulin; Z95.5 Presence of coronary angioplasty implant and graft; Z88.0 Allergy status to penicillin; Z88.1 Allergy status to other antibiotic agents
CPT/HCPCS: 93005; 99285; 36415; 87086; 82962; 85025; 80053; 81001; 84484; 70450; 93010; A9270 ×3; J1815; J8499